=== PATIENT | female | born 1955 | race Caucasian/White ===

== ENCOUNTER 2016-10-02 14:44 | Inpatient (IN) | payer OTHER, MEDICARE ==
[~2016-10-02] VITALS: Ht 157.5 cm; Wt 80.8 kg
[~2016-10-02 14:44] MED LIST: AMIO200T PO; ASPI81CH PO; CHOL50006 PO; CYMB60CA PO; EPIN1INJ21 IV PUSH; EPIN1INJ21 SQ; GABA300C5 PO; ISOS20TA PO; LIPI40TA PO; LOSA25TA PO; METO25TA3 PO; MONT10TA4 PO; NOVO7030P2 SQ; NOVORP2 SQ; OXYC-259 PO; OXYC1TAB36 PO; SOLU250I IV PUSH; TIZA4CAP3 PO; VANC10IN IV
[2016-10-02 14:46] VITALS: BP 78/44; PULSE 71; RESP 18; TEMP 97.9; O2SAT 96
--- NOTE | 2016-10-02 16:32 | PD ---
HPI Chief Complaint: Abnormal Results Time Seen by Provider: 16:32 Travel History International Travel<30 days: No Contact w/Intl Traveler<30days: No Traveled to known affect area: No History of Present Illness HPI 60-year-old female with history of lupus, diabetes, hypertension, CAD, previous CABG, asthma, presents to the emergency department with an admit order from Dr. Ruiz her plant guard. Patient states this "all started last December." She states she had a toe amputated which took a while to heal and then she had another toe amputated months following that. She states since that amputation she has developed additional wound and worsening. She has felt chills with unknown fever. No chest tightness. No difficulty breathing. She went to Dr. Ruiz today after redness had encompassed the right distal lower extremity. He advised that she come to the emergency department. He wants her admitted to medicine with IV antibiotics and possible amputation of the foot in 1-2 days. The order is with her paperwork. PFSH Past Medical History Asthma: Yes Autoimmune Disease: Yes (LUPUS) Depression: Yes Cardiovascular Problems: Yes Chemotherapy: Yes Cerebrovascular Accident: No Diabetes: Yes Endocrine: Yes Gastrointestinal Disorders: Yes (HX FISTULA - COLOSTOMY LEFT UPPER QUAD; ESOPHAGEAL SPASMS) Genitourinary: No Headaches: No Hepatitis: No Hiatal Hernia: No Hypertension: No Immune Disorder: Yes (LUPUS ) Implanted Vascular Access Dvce: Yes Neurologic: Yes (DIABETIC NERVE PAIN HANDS & FEET) Psychiatric: No Reproductive: No Respiratory: Yes Immunizations Current: Yes Migraines: No Seizures: No Thyroid Disease: No ?: Not Menopausal: Yes Past Surgical History Abdominal Surgery: Yes (JAMSHID,COLON SX, COLOSTOMY AND REVERSAL; COLOSTOMY 04/15) AICD: No Body Medical Devices: CARDIAC STENTS, BREAST SALINE IMPLANTS Cardiac Surgery: Yes (CARDIAC STENTS X2, CABG 5 vessels ) Endocrine Surgery: No Genitourinary Surgery: Yes (KIDNEY STONES 1984, ESWL) Gynecologic Surgery: Yes (HYSTERECTOMY) Hysterectomy: Yes Joint Replacement: No Neurologic Surgery: No Oral Surgery: Yes (TONSILLECTOMY) Pacemaker: No Thoracic Surgery: No Other Surgery: Yes Social History Alcohol Use: No Tobacco Use: No Substance Use: No Allergies-Medications (Allergen,Severity, Reaction): Coded Allergies: Bactrim (Verified Allergy, Severe, Shortness of Breath, 06/06/16) Iodine (Verified Allergy, Severe, THROAT SWELLS, 06/06/16) pt states does not have a allergy to Iodine 01/11/16 JF Penicillin (Verified Allergy, Severe, STOPPED BREATHING, 06/06/16) Shellfish (Verified Allergy, Severe, THROAT SWELLS, 06/06/16) *MDRO Multi-Drug Resistant Organism (Verified Adverse Reaction, Unknown, 06/06/16) 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 Solu-Cortef Inj (Hydrocortisone Sodium Succinate) 250 Mg Inj 250 Mg IV PUSH ONCE PRN Give over 30-60 seconds. Vancomycin Inj (Vancomycin HCl) 10 Gm Inj 1,400 Mg IV DAILY 42 Days Oxycontin (Oxycodone HCl) 10 Mg Tab 10 Mg PO Q12HR Metoprolol Tartrate 25 Mg Tab 25 Mg PO BID 30 Days Reported Lipitor (Atorvastatin Calcium) 40 Mg Tab 40 Mg PO HS Vitamin D (Cholecalciferol) 5,000 Unit Tab 5,000 Units PO DAILY Losartan (Losartan Potassium) 25 Mg Tab 25 Mg PO DAILY Montelukast (Montelukast Sodium) 10 Mg Tab 10 Mg PO HS Oxycodone-Acetaminophen 10-325 mg Tab 1 Tab PO QID PRN Novolin 70-30 Inj (Insulin Human Isoph/Insulin Regular) 1,000 Unit/10 Ml Vial 30 Units SQ ACHS Novolin R Inj (Insulin Human Regular) 1,000 Unit/10 Ml Vial 0 SQ DIRECTED Sliding Scale As Directed. Isosorbide Mononitrate 20 Mg Tab 30 Mg PO DAILY Take 2 doses 7 hours apart. Tizanidine (Tizanidine HCl) 4 Mg Cap 4 Mg PO TID Gabapentin 300 Mg Cap 300 Mg PO Q6HR Aspirin 81 Mg Chew 81 Mg CHEW DAILY Amiodarone (Amiodarone HCl) 200 Mg Tab 200 Mg PO DAILY Cymbalta DR (Duloxetine HCl) 60 Mg Capdr 60 Mg PO DAILY Review of Systems Except as stated in HPI: all other systems reviewed are Neg Physical Exam Narrative GENERAL: Chronically ill-appearing female patient, in no acute distress SKIN: Warm and dry. Dressing on the right distal lower extremity with a postop shoe. Erythema extends proximal to the knee Of the right lower extremity. HEAD: Atraumatic. Normocephalic. EYES: Pupils equal and round. No scleral icterus. No injection or drainage. ENT: No nasal bleeding or discharge. Mucous membranes pink and moist. NECK: Trachea midline. No JVD. CARDIOVASCULAR: Regular rate and rhythm. No murmur appreciated. RESPIRATORY: No accessory muscle use. Diminished likely due to girth and poor inspiratory effort. To auscultation. Breath sounds equal bilaterally. GASTROINTESTINAL: Abdomen soft, non-tender, nondistended. Hepatic and splenic margins not palpable. MUSCULOSKELETAL: No obvious deformities. No clubbing. No cyanosis. Edema and erythema of the right distal lower extremity with a dressing in place on the foot and postop shoe. NEUROLOGICAL: Awake and alert. No obvious cranial nerve deficits. Motor grossly within normal limits. Normal speech. Data Data Last Documented VS Vital Signs Date Time Temp Pulse Resp B/P Pulse Ox O2 Delivery O2 Flow Rate FiO2 10/02/16 18:07 66 18 153/67 99 Room Air 10/02/16 14:46 97.9 Orders Electrocardiogram (10/02/16 16:25) Complete Blood Count With Diff (10/02/16 16:25) Comprehensive Metabolic Panel (10/02/16 16:25) Prothrombin Time / Inr (Pt) (10/02/16 16:25) Act Partial Throm Time (Ptt) (10/02/16 16:25) Lactic Acid Sepsis Protocol (10/02/16 16:25) Ckmb (Isoenzyme) Profile (10/02/16 16:25) Troponin I (10/02/16 16:25) Urinalysis - C+S If Indicated (10/02/16 16:25) Blood Culture (10/02/16 16:25) Chest, Single Ap (10/02/16 16:25) CKMB (10/02/16 16:45) CKMB% (10/02/16 16:45) Mri Foot W/O Contrast (10/02/16 ) Labs Laboratory Tests Test 10/02/16 10/02/16 16:45 16:50 White Blood Count 13.1 TH/MM3 Red Blood Count 3.71 MIL/MM3 Hemoglobin 10.2 GM/DL Hematocrit 31.5 % Mean Corpuscular Volume 84.9 FL Mean Corpuscular Hemoglobin 27.4 PG Mean Corpuscular Hemoglobin 32.2 % Concent Red Cell Distribution Width 16.9 % Platelet Count 274 TH/MM3 Mean Platelet Volume 6.9 FL Neutrophils (%) (Auto) 78.5 % Lymphocytes (%) (Auto) 9.5 % Monocytes (%) (Auto) 10.7 % Eosinophils (%) (Auto) 0.7 % Basophils (%) (Auto) 0.6 % Neutrophils # (Auto) 10.3 TH/MM3 Lymphocytes # (Auto) 1.2 TH/MM3 Monocytes # (Auto) 1.4 TH/MM3 Eosinophils # (Auto) 0.1 TH/MM3 Basophils # (Auto) 0.1 TH/MM3 CBC Comment DIFF FINAL Differential Comment Prothrombin Time 10.8 SEC Prothromb Time International 1.0 RATIO Ratio Activated Partial 27.1 SEC Thromboplast Time Sodium Level 130 MEQ/L Potassium Level 4.3 MEQ/L Chloride Level 98 MEQ/L Carbon Dioxide Level 21.7 MEQ/L Anion Gap 10 MEQ/L Blood Urea Nitrogen 29 MG/DL Creatinine 1.92 MG/DL Estimat Glomerular Filtration 27 ML/MIN Rate Random Glucose 130 MG/DL Calcium Level 8.7 MG/DL Total Bilirubin 0.5 MG/DL Aspartate Amino Transf 43 U/L (AST/SGOT) Alanine Aminotransferase 27 U/L (ALT/SGPT) Alkaline Phosphatase 99 U/L Total Creatine Kinase 291 U/L Creatine Kinase MB 4.7 NG/ML Creatine Kinase MB % 1.6 % Troponin I LESS THAN 0.02 NG/ML Total Protein 8.5 GM/DL Albumin 2.6 GM/DL Lactic Acid Level 1.3 mmol/L MDM Medical Decision Making Medical Screen Exam Complete: Yes Emergency Medical Condition: Yes Medical Record Reviewed: Yes Differential Diagnosis Cellulitis versus osteomyelitis versus gangrenous wound versus PVD versus PAD versus sepsis Narrative Course 60 year-old female presents to the emergency department at the instruction of her plant guard Dr. Ruiz. The patient has with her and order that his hand written out by Dr. Ruiz for admission to medicine and a consult to ID and plant guard mentioned on the order sheet. There are other orders as well. Workup was initiated in triage. Once a medical bed becomes available, patient will be transferred and care assumed by the provider. I spoke with who has assumed care of the patient. She is aware of the order that accompanies the patient chart. Condition: Stable MendozaBouchra pedersen LULU Oct 02, 2016 16:32
[2016-10-02 17:08] LABS: AUTOMATED NEUTROPHIL # 10.3 TH/MM3 (1.8-7.7); BASOPHIL # 0.1 TH/MM3 (0-0.2); BASOPHIL % 0.6 % (0.0-2.0); EOSINOPHIL # 0.1 TH/MM3 (0-0.4); EOSINOPHIL % 0.7 % (0.0-4.0); HEMATOCRIT 31.5 % (35.0-46.0); HEMO FLAGS DIFF FINAL; LYMPH % 9.5 % (9.0-44.0); LYMPHOCYTE # 1.2 TH/MM3 (1.0-4.8); MEAN CELL VOLUME 84.9 FL (80.0-100.0); MEAN CORPUSCULAR HEMOGLOBIN 27.4 PG (27.0-34.0); MEAN CORPUSCULAR HGB CONC 32.2 % (32.0-36.0); MONO % 10.7 % (0.0-8.0); NEUT % 78.5 % (16.0-70.0); PLATELET COUNT 274 TH/MM3 (150-450); RED BLOOD COUNT 3.71 MIL/MM3 (4.00-5.30); RED CELL DISTRIBUTION WIDTH 16.9 % (11.6-17.2); WHITE BLOOD COUNT 13.1 TH/MM3 (4.0-11.0)
--- NOTE | 2016-10-02 17:22 | RADRPT ---
EXAM DATE/TIME: 10/02/2016 16:49 [facility] COMPARISON: CHEST SINGLE AP, June 11, 2016, 12:48. INDICATIONS : Shortness of breath. MEDICAL HISTORY : Chronic obstructive pulmonary disease. Coronary artery disease. Asthma. SURGICAL HISTORY : CABG. Coronary artery stent. Mastectomy, bilateral. ENCOUNTER: Initial ACUITY: 1 day PAIN SCORE: 0/10 LOCATION: Bilateral chest FINDINGS: Sternal wires from previous bypass are noted. The heart is enlarged. Pulmonary vascularity is normal. Surgical clips are seen in the left axilla. Portions of the bony skeleton visualized are unremarka ble. CONCLUSION: Compensated cardiomegaly, negative for an acute infiltrate or failure. Sean Lawler MD FACR on October 02, 2016 at 17:16 Board Certified Radiologist. This report was verified electronically.
[2016-10-02 17:23] LABS: APTT (PATIENT) 27.1 SEC (24.3-30.1); PROTHROMBIN TIME - PATIENT 10.8 SEC (9.8-11.6)
[2016-10-02 17:25] LABS: ANION GAP 10 MEQ/L (5-15); AST (GOT) 43 U/L (15-37); BICARBONATE 21.7 MEQ/L (21.0-32.0); BLOOD UREA NITROGEN 29 MG/DL (7-18); CHLORIDE 98 MEQ/L (98-107); GLOMERULAR FILTRATION RATE 27 ML/MIN (>89); POTASSIUM 4.3 MEQ/L (3.5-5.1); SODIUM (NA) 130 MEQ/L (136-145)
[2016-10-02 17:29] LABS: ALKALINE PHOSPHATASE 99 U/L (45-117); ALT (GPT) 27 U/L (10-53); CREATINE KINASE 291 U/L (26-192); TOTAL BILIRUBIN ADULT 0.5 MG/DL (0.2-1.0)
[2016-10-02 17:41] LABS: CKMB 4.7 NG/ML (0.5-3.6)
[2016-10-02 18:07] VITALS: BP 153/67; PULSE 66; RESP 18; O2SAT 99
--- NOTE | 2016-10-02 18:42 | PD ---
Physical Exam Date Seen by Provider: Oct 02, 2016 Narrative Patient was sent here from Dr. Ruiz, who is a break out man, for admission to the hospitalist service with consults to podiatry and ID because of cellulitis of the right knee with associated osteomyelitis. Patient reports onset of symptoms a week ago. She has been febrile. She just sought medical care today. Data Data Last Documented VS Vital Signs Date Time Temp Pulse Resp B/P Pulse Ox O2 Delivery O2 Flow Rate FiO2 10/02/16 18:07 66 18 153/67 99 Room Air 10/02/16 14:46 97.9 Orders Electrocardiogram (10/02/16 16:25) Complete Blood Count With Diff (10/02/16 16:25) Comprehensive Metabolic Panel (10/02/16 16:25) Prothrombin Time / Inr (Pt) (10/02/16 16:25) Act Partial Throm Time (Ptt) (10/02/16 16:25) Lactic Acid Sepsis Protocol (10/02/16 16:25) Ckmb (Isoenzyme) Profile (10/02/16 16:25) Troponin I (10/02/16 16:25) Urinalysis - C+S If Indicated (10/02/16 16:25) Blood Culture (10/02/16 16:25) Chest, Single Ap (10/02/16 16:25) CKMB (10/02/16 16:45) CKMB% (10/02/16 16:45) Mri Foot W/O Contrast (10/02/16 ) Ondansetron Inj (Zofran Inj) (10/02/16 18:45) Morphine Inj (Morphine Inj) (10/02/16 18:45) Wound Culture And Gram Stain (10/02/16 19:34) Diet 1999 [place] Cons Carb (10/03/16 Breakfast) Npo After Midnight W/ Po Meds (10/03/16 Breakfast) ^ Consent (10/02/16 19:34) ^ Other Nursing Orders (10/02/16 19:34) ^ Other Nursing Orders (10/02/16 19:34) Mupirocin 2% Oint (Bactroban 2% Oint) (10/02/16 19:45) Vancomycin Inj (Vancomycin Inj) (10/02/16 19:45) Acetamin-Hydrocod 325-7.5 Mg ([place] 7.5 (10/02/16 19:45) Morphine Inj (Morphine Inj) (10/02/16 19:45) Vancomycin Consult Pharmacy (Vancomycin (10/02/16 19:45) Consult Podiatry (10/02/16 ) Admit Order (Ed Use Only) (10/02/16 19:43) Admit To Inpatient (10/02/16 ) Vital Signs (Adult) Q4H (10/02/16 19:40) Activity Oob With Assistance (10/02/16 19:40) Cold Strip Roller / Telemetry .CONTINUOUS (10/02/16 19:40) Sodium Chloride 0.9% Flush (Ns Flush) (10/02/16 19:45) Sodium Chloride 0.9% Flush (Ns Flush) (10/02/16 21:00) Ondansetron Inj (Zofran Inj) (10/02/16 19:45) Basic Metabolic Panel (Bmp) (10/03/16 06:00) Complete Blood Count With Diff (10/03/16 06:00) Naloxone Inj (Narcan Inj) (10/02/16 19:45) Inpatient Certification (10/02/16 ) Labs Laboratory Tests Test 10/02/16 10/02/16 16:45 16:50 White Blood Count 13.1 TH/MM3 Red Blood Count 3.71 MIL/MM3 Hemoglobin 10.2 GM/DL Hematocrit 31.5 % Mean Corpuscular Volume 84.9 FL Mean Corpuscular Hemoglobin 27.4 PG Mean Corpuscular Hemoglobin 32.2 % Concent Red Cell Distribution Width 16.9 % Platelet Count 274 TH/MM3 Mean Platelet Volume 6.9 FL Neutrophils (%) (Auto) 78.5 % Lymphocytes (%) (Auto) 9.5 % Monocytes (%) (Auto) 10.7 % Eosinophils (%) (Auto) 0.7 % Basophils (%) (Auto) 0.6 % Neutrophils # (Auto) 10.3 TH/MM3 Lymphocytes # (Auto) 1.2 TH/MM3 Monocytes # (Auto) 1.4 TH/MM3 Eosinophils # (Auto) 0.1 TH/MM3 Basophils # (Auto) 0.1 TH/MM3 CBC Comment DIFF FINAL Differential Comment Prothrombin Time 10.8 SEC Prothromb Time International 1.0 RATIO Ratio Activated Partial 27.1 SEC Thromboplast Time Sodium Level 130 MEQ/L Potassium Level 4.3 MEQ/L Chloride Level 98 MEQ/L Carbon Dioxide Level 21.7 MEQ/L Anion Gap 10 MEQ/L Blood Urea Nitrogen 29 MG/DL Creatinine 1.92 MG/DL Estimat Glomerular Filtration 27 ML/MIN Rate Random Glucose 130 MG/DL Calcium Level 8.7 MG/DL Total Bilirubin 0.5 MG/DL Aspartate Amino Transf 43 U/L (AST/SGOT) Alanine Aminotransferase 27 U/L (ALT/SGPT) Alkaline Phosphatase 99 U/L Total Creatine Kinase 291 U/L Creatine Kinase MB 4.7 NG/ML Creatine Kinase MB % 1.6 % Troponin I LESS THAN 0.02 NG/ML Total Protein 8.5 GM/DL Albumin 2.6 GM/DL Lactic Acid Level 1.3 mmol/L MDM Supervised Visit with SUZY: Yes Differential Diagnosis My differential diagnosis includes but is not limited to localized wound infection, cellulitis, abscess, osteomyelitis Narrative Course Patient presents to us from a break out man office for admission for evaluation and treatment of right lower extremity cellulitis and probable osteomyelitis. Her right lower extremity is red and warm from the knee down. CBC & BMP Diagram 10/02/16 16:45 Lactic acid is 1.3. The hospitalist will be consulted for admission. UpToDate recommends withholding antibiotics in stable patient's until cultures can be obtained surgically. Therefore, I have not ordered empiric antibiotics. Physician Communication Physician Communication Dr. Osullivan will admit. Diagnosis Primary Impression: Diabetic foot infection Admitting Information Admitting Physician Requests: Admit Condition: Stable Taya Manzo MD Oct 02, 2016 18:42
[2016-10-02] MEDS ORDERED: MORPHINE SULFATE 8 MG/ML INJ IV PUSH ONE (18:45)
[2016-10-02] MEDS ORDERED: ONDANSETRON HCL 4 MG/2 ML VIAL IV PUSH ONE (18:45)
[2016-10-02] MEDS ORDERED: DULO1CAP2 PO (18:47)
[2016-10-02] MEDS ORDERED: ISOS30TA3 PO (18:50)
[2016-10-02 19:00] VITALS: BP 138/61; PULSE 73; RESP 18; O2SAT 99
[2016-10-02] MEDS ORDERED: Vancomycin Consult Pharmacy 1 EA OTHER SCH (19:45)
[2016-10-02] MEDS ORDERED: NALOXONE HCL 0.4 MG/ML AMP IV PRN (19:45)
[2016-10-02] MEDS ORDERED: MUPIROCIN 2% OINT 22 GM TUBE TOPICAL ONE (19:45)
[2016-10-02] MEDS ORDERED: ONDANSETRON HCL 4 MG/2 ML VIAL IVP PRN (19:45)
[2016-10-02] MEDS ORDERED: VANCOMYCIN INJ 1,000 MG in SODIUM CHLOR 0.9% 250 ML INJ 250 ML IV ONE (20:00)
[2016-10-02] MEDS: MORPHINE SULFATE 4 MG/ML INJ IV PUSH PRN ×2 (20:19→22:54)
[2016-10-02] MEDS: SODIUM CHLORIDE 0.9% FLUSH 5 ML FLUSH FLUSH SCH (20:51)
[2016-10-02 21:29] LABS: BLOOD, URINE NEG (NEG); GLUCOSE,URINE NEG (NEG); HYALINE CAST, URINE 5 /lpf (RARE); KETONE, URINE NEG (NEG); NITRITE,URINE NEG (NEG); SQUAMOUS EPITHELIAL CELL URINE 9 /hpf (0-5); TRANSITIONAL EPI CELLS, URINE <1 /hpf; URINE COLOR YELLOW (YELLW/STRAW); WHITE BLOOD CELL CAST, URINE 4 /lpf
[2016-10-02 21:30] LABS: COMMENT (UR) CATH-CULTURE IND; CULTURE IF INDICATED CATH CULTURE IND
--- NOTE | 2016-10-02 21:35 | RADRPT ---
EXAM DATE/TIME: 10/02/2016 20:29 [facility] COMPARISON: No previous studies available for comparison. INDICATIONS : Osteomyelitis. MEDICAL HISTORY : Diabetes mellitus type 2. Lupus. SURGICAL HISTORY : CABG Right foot surgery. ENCOUNTER: Subsequent ACUITY: 3 months PAIN SCORE: 0/10 LOCATION: Right foot. TECHNIQUE: Multiplanar, multisequence MRI examination was performed without contrast. FINDINGS: BONE/CARTILAGE: Severe midfoot and forefoot deformity is noted. The first metatarsal demonstrates abnormal T2 hyperin tensity in its midshaft with poor cortical delineation. Fracture appears to be present. The second me tatarsal and toe have been amputated. The third metatarsal demonstrates abnormal signal intensity thr oughout its shaft with mild bone marrow edema. The distal and proximal aspects of the third metatarsa l are discontinuous. The fourth metatarsal demonstrates a fracture through the proximal shaft but oth erwise fails to contain any significant bone marrow edema. The fifth metatarsal and toe have been amp utated. Bone marrow signal intensity is well preserved and the tarsal bones and calcaneus. TENDONS: All of the visualized tendons are intact. MISCELLANEOUS: Fibrotic and inflammatory soft tissue changes are seen throughout the midfoot and forefoot. There are 3 discrete fluid collections identified. A 2 x 1.7 cm collection is identified along the plantar janet face of the third metatarsophalangeal joint. A 1.4 cm fluid collection is identified along the dorsal margin of the proximal fourth metatarsal. A sinus tract is identified extending from the plantar janet face of the foot into the midfoot this is located between the third and fourth distal metatarsals. CONCLUSION: 3 discrete fluid collections are identified in the mid and forefoot which may or pres ent abscess collections. Abnormal signal intensity with bone marrow edema and destructive cortical changes are identified in t he first and third metatarsal which may represent osteomyelitis. Changes in the third metatarsal asso ciated with a fistulous tract extending to the plantar surface. The second and fifth metatarsals and toes have been amputated. No evidence of acute or chronic inflammatory changes involving the hindfoot. Roldan Graves MD on October 02, 2016 at 21:16 Board Certified Radiologist. This report was verified electronically.
[2016-10-02 23:00] VITALS: BP 129/65; PULSE 70; RESP 18; O2SAT 98
--- NOTE | 2016-10-02 23:07 | HHI.HP ---
[facility] Alonso Robins MD Admission Diagnosis cellulitis Diagnoses: Chief Complaint: right foot infection Travel History International Travel<30 Days: No Contact w/Intl Traveler <30 Da: No Traveled to Known Affected Are: No History of Present Illness 60 y/o female with a history of lupus, htn, CAD, asthma, dylipidemia presented to the ED from Dr. Ruiz's office for evaluation and possible amputation of right foot. Patient states she has been dealing with the foot infection since December of 2015, and when she has been treated multiple times with antibiotics. Over the last 2 weeks she has been having increased pain and swelling of the planter side of right foot. She went to see Dr. Ruiz today and she stated he took xrays and suggested she come to the hospital for an MRI and possible amputation. She complains of increase throbbing pain to right 3rd digit that radiates to her calf, this has made walking very difficult for her. She denies any fever, chill, chest pain or shortness of breath. Dr. Spaulding has seen the patient and surgery is planned for 10am. She also complains of an ulcer to her planter surface of left great toe, she states she undergoes home health care twice a week for dressing changes. Review of Systems Constitutional: DENIES: Fever, Chills Respiratory: DENIES: Cough, Sputum production, Shortness of breath Cardiovascular: COMPLAINS OF: Lower Extremity Edema, DENIES: Chest pain Gastrointestinal: DENIES: Diarrhea, Nausea, Vomiting Musculoskeletal: COMPLAINS OF: Joint pain, Joint Swelling, DENIES: Back pain, Neck pain Integumentary: DENIES: Rash Hematologic/lymphatic: DENIES: Lymphadenopathy Immunologic/allergic: DENIES: Urticaria Past Family Social History Past Medical History Lupus HTN COPD, oxygen as needed at home DM CAD CHF Afib Past Surgical History CABG 2013 Right illiac artery bypass 2015 Right 2nd and 5th toe amputation colostomy Mastectomy 1980 Breast augmentation Hysterectomy Tonsillectomy Reported Medications Reported Meds & Active Scripts Active Metoprolol Tartrate 25 Mg Tab 25 Mg PO BID 30 Days Reported Isosorbide Mononitrate ER (Isosorbide Mononitrate) 30 Mg Shonda 30 Mg PO DAILY Duloxetine DR (Duloxetine HCl) 30 Mg Capdr 30 Mg PO DAILY Lipitor (Atorvastatin Calcium) 40 Mg Tab 40 Mg PO HS Vitamin D (Cholecalciferol) 5,000 Unit Tab 5,000 Units PO DAILY Losartan (Losartan Potassium) 25 Mg Tab 25 Mg PO DAILY Montelukast (Montelukast Sodium) 10 Mg Tab 10 Mg PO HS Oxycodone-Acetaminophen 10-325 mg Tab 1 Tab PO QID PRN Novolin 70-30 Inj (Insulin Human Isoph/Insulin Regular) 1,000 Unit/10 Ml Vial 30 Units SQ BID Novolin R Inj (Insulin Human Regular) 1,000 Unit/10 Ml Vial Unknown Dose SQ ACHS Sliding Scale As Directed. Tizanidine (Tizanidine HCl) 4 Mg Cap 4 Mg PO TID Gabapentin 300 Mg Cap 300 Mg PO Q6HR Aspirin 81 Mg Chew 81 Mg CHEW DAILY Amiodarone (Amiodarone HCl) 200 Mg Tab 200 Mg PO DAILY Allergies: Coded Allergies: Bactrim (Verified Allergy, Severe, Shortness of Breath, 06/06/16) Iodine (Verified Allergy, Severe, THROAT SWELLS, 06/06/16) pt states does not have a allergy to Iodine 01/11/16 JF Penicillin (Verified Allergy, Severe, STOPPED BREATHING, 06/06/16) Shellfish (Verified Allergy, Severe, THROAT SWELLS, 06/06/16) *MDRO Multi-Drug Resistant Organism (Verified Adverse Reaction, Unknown, 06/06/16) 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 Active Ordered Medications Current Medications Medications (Trade) Dose Ordered Sig/Seng Route Start Time Stop Time Status Last Admin ([place] 7.5-325 Mg) 2 tab Q6H PRN PO 10/02/16 19:45 Morphine Sulfate 4 mg 4 mg Q6HR PRN IV PUSH 10/02/16 19:45 10/02/16 20:19 (Vancomycin Consult Pharmacy) 0 ml @ 0 mls/hr UNSCH OTHER 10/02/16 19:45 (NS Flush) 2 ml UNSCH PRN FLUSH 10/02/16 19:45 (NS Flush) 2 ml BID FLUSH 10/02/16 21:00 (Zofran Inj) 4 mg Q6H PRN IVP 10/02/16 19:45 (Narcan Inj) 0.4 mg UNSCH PRN IV 10/02/16 19:45 (Morphine Inj) 2 mg Q3H PRN IV PUSH 10/02/16 19:45 10/02/16 22:54 Family History DAD: CAD, [place] Mom: breast cancer, bone cancer Grandfather: DM Social History Tobacco use: Quit 9 months ago Alcohol use: Denies Illicit drug use: Denies Physical Exam Vital Signs Vital Signs Date Time Temp Pulse Resp B/P Pulse Ox O2 Delivery O2 Flow Rate FiO2 10/02/16 18:07 66 18 153/67 99 Room Air 10/02/16 14:46 97.9 71 18 78/44 96 Room Air Physical Exam GENERAL: This is a well-nourished, well-developed patient, in no apparent distress. SKIN: Ulceration to outer plantar surface of right foot. Cellulitis of right leg. Ulcerated soft tissue of left great toe. HEAD: Atraumatic. Normocephalic. No temporal or scalp tenderness. EYES: Pupils equal round and reactive. ENT: Nose without bleeding, purulent drainage or septal hematoma. Airway patent. NECK: Trachea midline. No JVD or lymphadenopathy. Supple, nontender, no meningeal signs. CARDIOVASCULAR: Regular rate and rhythm without murmurs, gallops, or rubs. RESPIRATORY: Clear to auscultation. Breath sounds equal bilaterally. No wheezes , rales, or rhonchi. GASTROINTESTINAL: Abdomen soft, non-tender, distended. Colostomy in place. No guarding. MUSCULOSKELETAL: Right lower extremity edematous with erythema. No calf tenderness. NEUROLOGICAL: Awake and alert. Motor and sensory grossly within normal limits. Normal speech. Laboratory Laboratory Tests Test 10/02/16 10/02/16 10/02/16 16:45 16:50 20:00 White Blood Count 13.1 Red Blood Count 3.71 Hemoglobin 10.2 Hematocrit 31.5 Mean Corpuscular Volume 84.9 Mean Corpuscular Hemoglobin 27.4 Mean Corpuscular Hemoglobin 32.2 Concent Red Cell Distribution Width 16.9 Platelet Count 274 Mean Platelet Volume 6.9 Neutrophils (%) (Auto) 78.5 Lymphocytes (%) (Auto) 9.5 Monocytes (%) (Auto) 10.7 Eosinophils (%) (Auto) 0.7 Basophils (%) (Auto) 0.6 Neutrophils # (Auto) 10.3 Lymphocytes # (Auto) 1.2 Monocytes # (Auto) 1.4 Eosinophils # (Auto) 0.1 Basophils # (Auto) 0.1 CBC Comment DIFF FINAL Differential Comment Prothrombin Time 10.8 Prothromb Time International 1.0 Ratio Activated Partial 27.1 Thromboplast Time Sodium Level 130 Potassium Level 4.3 Chloride Level 98 Carbon Dioxide Level 21.7 Anion Gap 10 Blood Urea Nitrogen 29 Creatinine 1.92 Estimat Glomerular Filtration 27 Rate Random Glucose 130 Calcium Level 8.7 Total Bilirubin 0.5 Aspartate Amino Transf 43 (AST/SGOT) Alanine Aminotransferase 27 (ALT/SGPT) Alkaline Phosphatase 99 Total Creatine Kinase 291 Creatine Kinase MB 4.7 Creatine Kinase MB % 1.6 Troponin I LESS THAN 0.02 Total Protein 8.5 Albumin 2.6 Lactic Acid Level 1.3 Urine Color YELLOW Urine Turbidity HAZY Urine pH 5.0 Urine Specific [place] 1.014 Urine Protein 30 Urine Glucose (UA) NEG Urine Ketones NEG Urine Occult Blood NEG Urine Nitrite NEG Urine Bilirubin NEG Urine Urobilinogen LESS THAN 2.0 Urine Leukocyte Esterase MOD Urine RBC 2 Urine WBC 8 Urine Squamous Epithelial 9 Cells Urine Transitional Epithelial <1 Cells Urine Hyaline Casts 5 Urine White Blood Cell Casts 4 Urine Yeast (Budding) RARE Microscopic Urinalysis Comment CATH-CULTURE IND Date/Time Procedure Status Source Growth 10/02/16 20:00 Urine Culture Received Urine Clean Catch Pending 10/02/16 16:50 Aerobic Blood Culture Received Blood Peripheral Pending 10/02/16 16:50 Anaerobic Blood Culture Received Blood Peripheral Pending 10/02/16 15:45 Gram Stain Received Wound Foot Pending 10/02/16 15:45 Wound Culture Received Wound Foot Pending Result Diagram: 10/02/16 1645 10/02/16 1645 Imaging Last Impressions Chest X-Ray 10/02/16 1625 Signed Impressions: Service Date/Time: Sunday, October 02, 2016 16:49 - CONCLUSION: Compensated cardiomegaly, negative for an acute infiltrate or failure. Sean Lawler MD FACR Foot MRI 10/02/16 0000 Signed Impressions: Service Date/Time: Sunday, October 02, 2016 20:29 - CONCLUSION: 3 discrete fluid collections are identified in the mid and forefoot which may or present abscess collections. Abnormal signal intensity with bone marrow edema and destructive cortical changes are identified in the first and third metatarsal which may represent osteomyelitis. Changes in the third metatarsal associated with a fistulous tract extending to the plantar surface. The second and fifth metatarsals and toes have been amputated. No evidence of acute or chronic inflammatory changes involving the hindfoot. Roldan Graves MD Assessment and Plan Problem List: (1) Osteomyelitis of right foot ICD Code: M86.9 Status: Acute (2) Foot ulcer, left ICD Code: L97.529 Status: Acute (3) HTN (hypertension) ICD Code: I10 Status: Chronic (4) DM (diabetes mellitus) ICD Code: E11.9 Status: Chronic (5) A-fib ICD Code: I48.91 Status: Chronic Assessment and Plan 60-year-old female with a history of hypertension, diabetes, CAD, COPD and lupus presented with: Osteomyelitis of the right foot Images: Right foot MRI shows discrete fluid collections are identified in the mid and forefoot which may or present abscess collections. Abnormal signal intensity with bone marrow edema and destructive cortical changes are identified in the first and third metatarsal which may represent osteomyelitis. Changes in the third metatarsal associated with a fistulous tract extending to the plantar surface. -Dr. Spaulding consulted surgery planned a.m. -Vancomycin IV per Dr. Spaulding, ID consulted -Nothing by mouth after midnight -Pain management with IV morphine -Venous Doppler ultrasound ordered to rule out DVT. Left foot ulcer, chronic -Dressing changes per podiatry Diabetes, chronic -Accu-Cheks AC/HS Hypertension, chronic -Monitor vitals -Restart home medications losartan, metoprolol A. fib, chronic -Continue home medications amiodarone -Monitor telemetry DVT prophylaxis: SCDs, chemical prophylaxis will be determined after surgery Written by Jackie LAWSON, acting as scribe for Dr. Osullivan on 10/02/16 at 2304. The documentation accurately reflects the work performed [id number] and decisions made by me and the physician Dr Osullivan on 10/02/16. The documentation accurately reflects the work performed [id number] by me on at 2304 Discussed Condition With Patient and RN Physician Certification 2 Midnight Certification Type: Admission for Inpatient Services Order for Inpatient Services The services are ordered in accordance with Medicare regulations or non- Medicare payer requirements, as applicable. In the case of services not specified as inpatient-only, they are appropriately provided as inpatient services in accordance with the 2-midnight benchmark. Estimated LOS (days): 3 days is the estimated time the patient will need to remain in the hospital, assuming treatment plan goals are met and no additional complications. Post-Hospital Plan: Not yet determined Jackie Lim Oct 02, 2016 23:07 Venita Osullivan MD Oct 03, 2016 08:02
[2016-10-03] VITALS (7 sets, daily range): BP systolic 118–151; BP diastolic 56–70; PULSE 56–95; RESP 17–21; TEMP 97.9–99.3; O2SAT 95–100
[2016-10-03] MEDS: GABAPENTIN 300 MG CAP PO SCH ×2 (00:20→05:45)
--- NOTE | 2016-10-03 01:34 | RADRPT ---
EXAM DATE/TIME: 10/02/2016 23:26 [facility] COMPARISON: No previous studies available for comparison. INDICATIONS : Right leg swelling and pain. MEDICAL HISTORY : Renal calculi. Lupus. Diabetic nerve pain. Diabetes. Asthma. Esophageal spasms. Depression. Anxie ty. MRSA. SURGICAL HISTORY : Tonsillectomy. CABG Coronary artery stent. Colostomy and reversal. Cholecystectomy. Hysterectomy. Fi stula. Bilateral mastectomy. Chemotherapy. ENCOUNTER: Initial ACUITY: 2 weeks PAIN SCORE: 9/10 LOCATION: Right leg. TECHNIQUE: Venous ultrasound of the leg was performed from the inguinal ligament to the proximal calf. Real-fatemeh e, color Doppler and spectral tracing, compression and augmentation techniques were used. FINDINGS: There is normal compressibility of the deep venous system from the inguinal region to the proximal ca lf. No echogenic clot is seen in the lumen of the common femoral, femoral, popliteal, and posterior tibial veins. There is a normal response of the venous system to proximal and distal augmentation an d respiration. CONCLUSION: 1. Negative for deep venous thrombosis. 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 Right inguinal lymph nodes mildly enlarged. Abdullahi Yu MD on October 03, 2016 at 1:31 Board Certified Radiologist. This report was verified electronically.
[2016-10-03] MEDS: MORPHINE SULFATE 4 MG/ML INJ IV PUSH PRN ×4 (01:50→20:05)
--- NOTE | 2016-10-03 05:34 | MB ---
cc: [facility] DATE OF CONSULTATION 10/02/2016 CHIEF COMPLAINT Right foot ulceration and cellulitis. HISTORY OF PRESENT ILLNESS Ms. Finnegan is a 60-year-old patient known to my partner, Dr. William Ruiz. She states that approximately a week ago she noticed erythema, swelling and pain to the right lower extremity. She has no idea how long she had the ulceration. Prior to that she states she started developing fevers at that time as well, as high as 102, but was hoping to avoid the hospital so did not seek treatment until today when she saw Dr. Ruiz in the office. He noted the high fevers and cellulitis from the toes to the knee and advised her to go to the emergency room for further workup. Radiographs did show strong evidence of osteomyelitis. He recommended a transmetatarsal amputation to me pending a full workup. I spoke to the patient. She is complaining of extreme pain in the right lower extremity. She states that she has had difficulty healing surgeries in the past but had an arterial bypass and since then has not had that issue. She states she has had a wound on the lateral aspect of her foot for a few months now but it has been healing slowly but steadily, same with a left plantar wound. She is unaware of how long she has had the wound around the third digit. She is complaining only of feeling feverish and pain at this time. PAST MEDICAL HISTORY 1. Lupus. 2. Diabetes. 3. Hypertension. 4. Coronary artery disease. 5. Asthma. PAST SURGICAL HISTORY 1. Previous CABG. 2. Bypass to the right lower extremity. 3. Colostomy. 4. Reversal of colostomy. 5. Cardiac stent. 6. Breast implants. 7. Kidney stones. 8. Hysterectomy. 9. Tonsillectomy. SOCIAL HISTORY Noncontributory. She lives at home with their . Denies any alcohol or drug abuse. MEDICATIONS Please see list. ALLERGIES PENICILLIN. She reports anaphylaxis. BACTRIM. IODINE. SHELLFISH. PREVIOUS HISTORY OF MRSA. VITAL SIGNS Temperature is 97.9, pulse 71, respiratory rate 18, blood pressure 78/44, pulse ox 96% O2 on room air. LABORATORY DATA White count 13.1, hemoglobin 10.2, hematocrit 31.5, platelets 274. INR 1.0. Sodium 130, potassium 4.3, chloride 98, BUN 29, glucose 130. Wound cultures and blood cultures pending. Foot MRI pending. PHYSICAL EXAMINATION On physical exam the patient has nonpalpable DP and PT pulses but cap fill time is less than 3 seconds and both feet feel well-perfused. Moderate to severe edema of the right foot and the lower leg below the knee which may be to contributing to the difficulty assessing pulses. Left plantar hallux bone 1-cm x 1-cm x 0. No deep probing, no erythema. Fibrogranular base. No drainage. No malodor. Otherwise left foot is unremarkable. The right foot with erythema from the digits to just below the knee as well as edema. Circumferential deep probing ulceration around the third digit with exposed bone. Plantarly a several superficial pockets that are fluctuant on the distal forefoot. Positive malodor. Positive tenderness to touch. ASSESSMENT/PLAN 1. Left foot stable hallux ulcer. 2. Right foot third digit ulceration with cellulitis and suspected osteomyelitis. - Deep wound cultures obtained at bedside, results pending. - Sufficient deepb wound cultures were obtained at bedside. Therefore I felt it appropriate to start antibiotics. The patient's cellulitis and erythema needs to decrease to allow for optimized outcomes of surgery tomorrow. Reduction in infection may also help reduce narcotic needs. - Plan for a transmetatarsal amputation surgery tomorrow. The patient is agreeable and we have discussed the procedure in detail. This is to allow for soft tissue closure as well as functional ambulation in the future. She already has her second and fifth digits amputated. - N.p.o. after midnight. - Bandage instructions placed. - MRI pending. Thank you for this consultation. Vale OSBORNE/SSB /7:49 PM /5:21 AM RAMON
[2016-10-03] MEDS: ISOSORBIDE MONONITRATE 30 MG TAB PO SCH (05:45)
[2016-10-03 06:39] LABS: AUTOMATED NEUTROPHIL # 9.8 TH/MM3 (1.8-7.7); BASOPHIL % 0.4 % (0.0-2.0); EOSINOPHIL # 0.1 TH/MM3 (0-0.4); EOSINOPHIL % 0.9 % (0.0-4.0); HEMATOCRIT 30.8 % (35.0-46.0); HEMO FLAGS DIFF FINAL; LYMPH % 8.2 % (9.0-44.0); MEAN CELL VOLUME 84.3 FL (80.0-100.0); MEAN CORPUSCULAR HEMOGLOBIN 27.1 PG (27.0-34.0); MEAN CORPUSCULAR HGB CONC 32.2 % (32.0-36.0); MONO % 10.5 % (0.0-8.0); PLATELET COUNT 268 TH/MM3 (150-450); RED BLOOD COUNT 3.65 MIL/MM3 (4.00-5.30); RED CELL DISTRIBUTION WIDTH 17.3 % (11.6-17.2); WHITE BLOOD COUNT 12.3 TH/MM3 (4.0-11.0)
[2016-10-03 06:52] LABS: BICARBONATE 24.4 MEQ/L (21.0-32.0); POTASSIUM 4.3 MEQ/L (3.5-5.1)
--- NOTE | 2016-10-03 07:53 | HHI.PR ---
Subjective Remarks Follow up for right foot osteomyelitis. The patient reports continued pain, swelling, erythema extending from the right 3rd toe, foot, and up the right leg. Pain temporarily relieved by IV morphine. She reports subjective fevers/ chills overnight, no documented fevers. She was able to tolerate dinner last night. She will be going for surgery today with Dr. Spaulding. Objective Vitals Vital Signs Date Time Temp Pulse Resp B/P Pulse Ox O2 Delivery O2 Flow Rate FiO2 10/03/16 04:11 98.1 95 20 118/56 98 10/03/16 00:47 85 10/03/16 00:18 99.1 84 20 151/68 98 10/02/16 23:00 70 18 129/65 98 Room Air 10/02/16 19:00 73 18 138/61 99 Room Air 10/02/16 18:07 66 18 153/67 99 Room Air 10/02/16 14:46 97.9 71 18 78/44 96 Room Air Result Diagram: 10/03/16 0517 10/03/16 0517 Imaging Last Impressions Chest X-Ray 10/02/16 1625 Signed Impressions: Service Date/Time: Sunday, October 02, 2016 16:49 - CONCLUSION: Compensated cardiomegaly, negative for an acute infiltrate or failure. Sean Lawler MD FACR Lower Extremity Ultrasound 10/02/16 0000 Signed Impressions: Service Date/Time: Sunday, October 02, 2016 23:26 - CONCLUSION: 1. Negative for deep venous thrombosis. 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 Right inguinal lymph nodes mildly enlarged. Abdullahi Yu MD Foot MRI 10/02/16 0000 Signed Impressions: Service Date/Time: Sunday, October 02, 2016 20:29 - CONCLUSION: 3 discrete fluid collections are identified in the mid and forefoot which may or present abscess collections. Abnormal signal intensity with bone marrow edema and destructive cortical changes are identified in the first and third metatarsal which may represent osteomyelitis. Changes in the third metatarsal associated with a fistulous tract extending to the plantar surface. The second and fifth metatarsals and toes have been amputated. No evidence of acute or chronic inflammatory changes involving the hindfoot. Roldan Graves MD Objective Remarks GENERAL: Well-nourished, well-developed female patient in NAD. SKIN: Warm and dry. See extremities below. HEENT: Normocephalic. Atraumatic. Pupils equal and round. No scleral icterus. No injection or drainage. Mucous membranes pink and moist. NECK: Supple. Trachea midline. CARDIOVASCULAR: Regular rate and rhythm. S1, S2 noted. No murmur appreciated. RESPIRATORY: No accessory muscle use. Clear to auscultation. Breath sounds equal bilaterally. GASTROINTESTINAL: Abdomen soft, non-tender, nondistended. Normoactive bowel sounds x4. MUSCULOSKELETAL: Chronic right 2nd and 5th toe amputations. Right 3rd toe with ulceration covered with dressing, and surrounding erythema/edema that extends up to the proximal knee. Left foot hallux ulceration, covered with dressing. Capillary refill < 2seconds of bilateral feet. NEUROLOGICAL: Awake and alert. No obvious cranial nerve deficits. Motor grossly within normal limits. Normal speech. PSYCHIATRIC: Appropriate mood and affect; insight and judgment normal. Medications and IVs Current Medications Medications (Trade) Dose Ordered Sig/Seng Route Start Time Stop Time Status Last Admin ([place] 7.5-325 Mg) 2 tab Q6H PRN PO 10/02/16 19:45 Morphine Sulfate 4 mg 4 mg Q6HR PRN IV PUSH 10/02/16 19:45 10/03/16 01:50 (Vancomycin Consult Pharmacy) 0 ml @ 0 mls/hr UNSCH OTHER 10/02/16 19:45 (NS Flush) 2 ml UNSCH PRN FLUSH 10/02/16 19:45 (NS Flush) 2 ml BID FLUSH 10/02/16 21:00 (Zofran Inj) 4 mg Q6H PRN IVP 10/02/16 19:45 (Narcan Inj) 0.4 mg UNSCH PRN IV 10/02/16 19:45 (Morphine Inj) 2 mg Q3H PRN IV PUSH 10/02/16 19:45 10/03/16 05:45 (Cordarone) 200 mg DAILY PO 10/03/16 09:00 (Aspirin Chew) 81 mg DAILY CHEW 10/03/16 09:00 (Lipitor) 40 mg HS PO 10/03/16 21:00 (Cymbalta Dr) 30 mg DAILY PO 10/03/16 09:00 (Neurontin) 300 mg Q6HR PO 10/03/16 00:00 10/03/16 05:45 (Imdur) 30 mg DAILY@07 PO 10/03/16 07:00 10/03/16 05:45 (Cozaar) 25 mg DAILY PO 10/03/16 09:00 (Lopressor) 25 mg BID PO 10/03/16 09:00 (Singulair) 10 mg HS PO 10/03/16 21:00 (Zanaflex) 4 mg TID PO 10/03/16 09:00 A/P Problem List: (1) Osteomyelitis of right foot ICD Code: M86.9 Status: Acute (2) Foot ulcer, left ICD Code: L97.529 Status: Acute (3) HTN (hypertension) ICD Code: I10 Status: Chronic (4) DM (diabetes mellitus) ICD Code: E11.9 Status: Chronic (5) A-fib ICD Code: I48.91 Status: Chronic Assessment and Plan 60-year-old female with a history of hypertension, diabetes, CAD, COPD and lupus presented with: Osteomyelitis of the right foot Images reviewed: Right foot MRI shows discrete fluid collections identified in the mid and forefoot which may represent abscess collections; Abnormal signal intensity with bone marrow edema and destructive cortical changes are identified in the first and third metatarsal which may represent osteomyelitis; Changes in the third metatarsal associated with a fistulous tract extending to the plantar surface. -Doppler ultrasound negative for DVT. -Dr. Spaulding consulted, surgery planned a.m. -Vancomycin IV per Dr. Spaulding -ID consulted -Pain management with [place] and IV morphine Left foot ulcer, chronic -Dressing changes per podiatry Diabetes with neuropathy, chronic, Hgb A1c 6.9 on 12/12/15 -Hold patient's 70/30 30u bid while NPO for surgery -Monitor Accu-Cheks AC/HS and cover with low dose SSI -Continue patient's gabapentin Hypertension, chronic -Monitor vitals, BP fairly well controlled -Continue home medications losartan, metoprolol A. fib, chronic -Continue home medications amiodarone -Monitor on telemetry HLD, chronic -continue patient's statin DVT prophylaxis: SCDs, chemical prophylaxis to be determined after surgery Discussed with Dr. Barkley. Demetria Wright PA-C Oct 03, 2016 07:53
[2016-10-03] MEDS ORDERED: DEXTROSE 50% IN WATER 50 ML VIAL(D50) IV PUSH PRN (08:00)
[2016-10-03] MEDS ORDERED: GLUCAGON 1 MG/ML VIAL OTHER PRN (08:00)
[2016-10-03] MEDS: DULoxetine HCl DR 30 MG CAP PO SCH (08:01)
[2016-10-03] MEDS: ASPIRIN 81 MG CHEW TAB CHEW SCH (08:01)
[2016-10-03] MEDS: METOPROLOL TARTRATE 25 MG TAB PO SCH (08:01)
[2016-10-03] MEDS: AMIODARONE 200 MG TAB PO SCH (08:02)
[2016-10-03] MEDS: LOSARTAN 25 MG TAB PO SCH (08:02)
[2016-10-03] MEDS: SODIUM CHLORIDE 0.9% FLUSH 5 ML FLUSH FLUSH SCH ×2 (08:02→20:06)
[2016-10-03] MEDS ORDERED: BUPIVACAINE HCL PF 0.25% 30 ML VIAL ONE (09:31)
[2016-10-03] MEDS ORDERED: BUPIVACAINE HCL PF 0.5% 30 ML VIAL ONE (09:36)
[2016-10-03] MEDS ORDERED: FAMOTIDINE 20 MG/2 ML VIAL ONE (10:06)
[2016-10-03] MEDS ORDERED: MIDAZOLAM HCL 2 MG/2 ML VIAL ONE (10:06)
[2016-10-03] MEDS ORDERED: ACETAMINOPHEN 1000 MG/100 ML VIAL IV ONE (10:13)
[2016-10-03] MEDS ORDERED: ONDANSETRON HCL 4 MG/2 ML VIAL IV PUSH ONE (12:00)
[2016-10-03] MEDS ORDERED: ePHEDrine/NS 25 MG/5 ML SYR IV ONE (12:00)
[2016-10-03] MEDS ORDERED: PROPOFOL 200 MG/20 ML AMP IV ONE (12:00)
[2016-10-03] MEDS ORDERED: PHENYLEPH/NS 1000 MCG/10 ML SYR IV ONE (12:00)
[2016-10-03] MEDS ORDERED: fentaNYL CITRATE 250 MCG/5 ML AMP ONE (12:11)
[2016-10-03] MEDS ORDERED: PHENYLEPHRINE HCL 10 MG/ML VIAL ONE (12:55)
--- NOTE | 2016-10-03 13:28 | RADRPT ---
EXAM DATE/TIME: 10/03/2016 12:25 [facility] COMPARISON: No previous studies available for comparison. INDICATIONS : Post right toe amputations. MEDICAL HISTORY : Renal calculi. Lupus. Diabetic nerve pain. Diabetes. Asthma. Esophageal spasms. Depression. Anxiety. MRSA SURGICAL HISTORY : Tonsillectomy. CABG Coronary artery stent. Colostomy and reversal. Cholecystectomy. Hysterectomy. Fis deb. Bilateral mastectomy. Chemotherapy. ENCOUNTER: Subsequent ACUITY: 2 days PAIN SCORE: Non-responsive. LOCATION: Right foot FINDINGS: Three view of the right foot demonstrates the patient has had an amputation across the Lisfranc joint . Some of the second metatarsal base remains and the fifth metatarsal base remains. There is some ai r overlying the surgical margin. CONCLUSION: Status post mid foot amputation as described above. Saran Kenyon MD on October 03, 2016 at 13:16 Board Certified Radiologist. This report was verified electronically.
[2016-10-03] MEDS ORDERED: SODIUM CHLORID 0.9% IV STA (13:35)
[2016-10-03] MEDS ORDERED: SODIUM CHLORID 0.9% 500 ML INJ 500 ML IV STA (14:00)
[2016-10-03] MEDS ORDERED: TERBUTALINE INJ 1 MG/ML AMP SQ PRN (14:45)
[2016-10-03] MEDS ORDERED: SODIUM CHLORID 0.9% 500 ML INJ 500 ML IV ONE (14:45)
[2016-10-03] MEDS ORDERED: PHENYLEPHRINE INJ 40 MG in DEXTROSE 5% IN WATE 500 ML INJ 496 ML IV SCH ×2 (15:45)
--- NOTE | 2016-10-03 16:01 | HHI.PR ---
Subjective Remarks Patient seen in PACU after surgery Patient became hypotensive, received 1.2 L of fluid during surgery, propofol and fentanyl. Estimated blood loss is 25 cc. When patient was seen, patient denies any shortness of breath, sleepy but easily arousable, denies any shortness of breath, nausea, vomiting, chest pain, mild lightheadedness and dizziness and sleepiness but otherwise alert, awake, oriented 3. Objective Vitals Vital Signs Date Time Temp Pulse Resp B/P Pulse Ox O2 Delivery O2 Flow Rate FiO2 10/03/16 12:40 56 15 84/46 94 Nasal Cannula 4 10/03/16 12:30 58 15 80/39 94 Nasal Cannula 4 10/03/16 12:22 58 15 81/44 94 Simple Mask 6 10/03/16 12:15 58 15 82/49 98 Simple Mask 6 10/03/16 12:08 57 15 80/42 98 Simple Mask 6 10/03/16 12:03 64 15 70/43 97 Simple Mask 6 10/03/16 12:02 98.3 59 14 69/39 97 Simple Mask 6 10/03/16 08:34 99.3 91 17 136/70 95 10/03/16 08:11 18 10/03/16 06:51 84 10/03/16 04:11 98.1 95 20 118/56 98 10/03/16 00:47 85 10/03/16 00:18 99.1 84 20 151/68 98 10/02/16 23:00 70 18 129/65 98 Room Air 10/02/16 19:00 73 18 138/61 99 Room Air 10/02/16 18:07 66 18 153/67 99 Room Air I/O 10/02/16 10/02/16 10/02/16 10/03/16 10/03/16 10/03/16 07:00 15:00 23:00 07:00 15:00 23:00 Intake Total 450 ml Output Total 25 ml Balance 425 ml Intake Other 450 ml Output Estimated Blood Loss 25 ml # Voids 1 1 Result Diagram: 10/03/1651610/03/16516 Objective Remarks GENERAL: Well-nourished, well-developed female patient in [facility]. SKIN: Warm and dry. See extremities below. HEENT: Normocephalic. Atraumatic. Pupils equal and round. No scleral icterus. NECK: Supple. Trachea midline. CARDIOVASCULAR: Regular rate and rhythm. S1, S2 noted. No murmur appreciated. Not tachycardic. RESPIRATORY: No accessory muscle use. Clear to auscultation. Breath sounds equal bilaterally. Poor effort. GASTROINTESTINAL: Abdomen soft, non-tender, nondistended. Normoactive bowel sounds x4. MUSCULOSKELETAL: Chronic right 2nd and 5th toe amputations. Right 3rd toe with dressings in place. NEUROLOGICAL: Awake and alert and to self, place, date. No obvious cranial nerve deficits. Motor grossly within normal limits. Normal speech. A/P Problem List: (1) Osteomyelitis of right foot ICD Code: M86.9 Status: Acute (2) Foot ulcer, left ICD Code: L97.529 Status: Acute (3) HTN (hypertension) ICD Code: I10 Status: Chronic (4) DM (diabetes mellitus) ICD Code: E11.9 Status: Chronic (5) A-fib ICD Code: I48.91 Status: Chronic Assessment and Plan 60-year-old female with a history of hypertension, diabetes, CAD, COPD and lupus presented with: Osteomyelitis of the right foot Images reviewed: Right foot MRI shows discrete fluid collections identified in the mid and forefoot which may represent abscess collections; Abnormal signal intensity with bone marrow edema and destructive cortical changes are identified in the first and third metatarsal which may represent osteomyelitis; Changes in the third metatarsal associated with a fistulous tract extending to the plantar surface. -Doppler ultrasound negative for DVT. Status post amputation -Vancomycin IV per Dr. Spaulding, start aztreonam. Check blood culture Hypotension-could be anesthesia induced, received fentanyl 25 g, propofol 100 mg, estimated blood loss is 25 cc, will bolus 1 L of normal saline, continue Marquise -Synephrine, transfer to ICU, keep map above 65, mentation is okay. Sleepy but easily arousable. No need for Narcan. Lactic acid, CBC, BMP. Left foot ulcer, chronic -Dressing changes per podiatry Diabetes with neuropathy, chronic, Hgb A1c 6.9 on 12/12/15 -Hold patient's 70/30 30u bid while NPO for surgery -Monitor Accu-Cheks AC/HS and cover with low dose SSI -Continue patient's gabapentin Hypertension, chronic -Monitor vitals, BP fairly well controlled, obviously, will hold antihypertensives for now. A. fib, chronic -Continue home medications amiodarone -Monitor on telemetry HLD, chronic -continue patient's statin DVT prophylaxis: SCDs, chemical prophylaxis to be determined after surgery Discussed with RN. Titrate Marquise-Synephrine to keep map more than 65. Aggregate critical care time was 35 minutes spent at bedside or in the hospital cooper. Time to perform other separately billable procedures was not included in the critical care time. My time did not include minutes spent treating any other patients simultaneously or on activities that did not directly contribute to the patient's treatment. The services I provided to this patient were to treat and/or prevent clinically significant deterioration that could result in: organ failure, , disability or imminent clinical deterioration in the patient's condition. I provided critical care services requiring my management, as noted below: chart data review, documentation time, medication orders and management, vital sign assessments/reviewing monitor data, ordering and reviewing lab tests, ordering and interpreting/reviewing x-rays and diagnostic studies, care of the patient and discussion with other physicians and caregivers as needed. Maru Barkley MD Oct 03, 2016 16:01
[2016-10-03] MEDS: VANCOMYCIN INJ 1,500 MG in SODIUM CHLORID 0.9% 500 ML INJ 500 ML IV SCH ×2 (16:10→16:20)
[2016-10-03 16:52] LABS: BASOPHIL # 0.1 TH/MM3 (0-0.2); BASOPHIL % 0.8 % (0.0-2.0); EOSINOPHIL # 0.2 TH/MM3 (0-0.4); EOSINOPHIL % 1.6 % (0.0-4.0); HEMATOCRIT 27.5 % (35.0-46.0); HEMO FLAGS DIFF FINAL; LYMPH % 11.2 % (9.0-44.0); LYMPHOCYTE # 1.2 TH/MM3 (1.0-4.8); MEAN CELL VOLUME 84.3 FL (80.0-100.0); MEAN CORPUSCULAR HEMOGLOBIN 27.1 PG (27.0-34.0); MEAN CORPUSCULAR HGB CONC 32.1 % (32.0-36.0); MONO % 9.9 % (0.0-8.0); NEUT % 76.5 % (16.0-70.0); PLATELET COUNT 259 TH/MM3 (150-450); RED BLOOD COUNT 3.26 MIL/MM3 (4.00-5.30); RED CELL DISTRIBUTION WIDTH 17.1 % (11.6-17.2); WHITE BLOOD COUNT 10.4 TH/MM3 (4.0-11.0)
[2016-10-03] MEDS ORDERED: NALOXONE HCL 0.4 MG/ML AMP IV PUSH ONE (17:00)
[2016-10-03] MEDS: AZTREONAM INJ 1,000 MG in SODIUM CHLORIDE 0.9% INJ 100 ML IV SCH (19:00)
[2016-10-03] MEDS: ATORVASTATIN 40 MG TAB PO SCH (20:05)
[2016-10-03] MEDS: MONTELUKAST SODIUM 10 MG TAB PO SCH (20:06)
[2016-10-03] MEDS: INSULIN ASPART SUPPLEMENTAL SCALE SQ SCH (20:06)
--- NOTE | 2016-10-03 23:12 | PD.ID.CON ---
History of Present Illness Service ID Consult Requested By Dr Manzo Reason for Consult R foot DFI, osteo Primary Care Physician Alonso Robins MD Diagnoses: History of Present Illness 60 yo F with extensive past med hx including PVD, DM and tobaccoism (just quit smoking 9 mos ago) sp RLE periferal bypass presented to the ED from Dr. Ruiz's office forsurgical treatment of her chronic right foot osteo. She has been dealing with the foot infection since December of 2015, and she is s/p multiple courses of antibiotics. She noted worsening in last 2 weeks having increased pain and swelling of the planter side of right foot.\ She has no fever, chills and has mild leukocytosis on presentation SHe underwent R transmetatarsal amputation today and post operatively experienced some issues with hypotension She is admitted to ICU from PACU and at the time of her interview she has stable afebrile vss on a very small dose on neosynephrine Her foot cl xis + for MRSA SHe has very small pyuria and reflex clx is P She was started on azactam, vancomycin Review of Systems Except as stated in HPI: all other systems reviewed are Neg Past Family Social History Allergies: Coded Allergies: Bactrim (Verified Allergy, Severe, Shortness of Breath, 06/06/16) Iodine (Verified Allergy, Severe, THROAT SWELLS, 06/06/16) pt states does not have a allergy to Iodine 01/11/16 JF Penicillin (Verified Allergy, Severe, STOPPED BREATHING, 06/06/16) Shellfish (Verified Allergy, Severe, THROAT SWELLS, 06/06/16) *MDRO Multi-Drug Resistant Organism (Verified Adverse Reaction, Unknown, 06/06/16) 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 Past Medical History Lupus HTN COPD, oxygen as needed at home DM CAD CHF Afib colovesiluar fistula Past Surgical History CABG 2013 Right illiac artery bypass 2015 Right 2nd and 5th toe amputation colostomy Mastectomy 1979 Breast augmentation Hysterectomy Tonsillectomy Active Ordered Medications Medications where reviewed in EMR Antibiotics Include: aztreonam vancomycin Family History DAD: CAD, [place] Mom: breast cancer, bone cancer Grandfather: DM Social History Tobacco use: Quit 9 months ago Alcohol use: Denies Illicit drug use: Denies Physical Exam Vital Signs Vital Signs Date Time Temp Pulse Resp B/P Pulse Ox O2 Delivery O2 Flow Rate FiO2 10/03/16 20:22 100 4.00 10/03/16 20:00 97.9 56 21 146/63 100 10/03/16 20:00 58 10/03/16 19:00 52 17 112/54 99 Nasal Cannula 3 10/03/16 18:45 57 17 82/39 99 Nasal Cannula 3 10/03/16 18:35 57 17 91/49 99 Nasal Cannula 3 10/03/16 18:20 55 17 125/57 99 Nasal Cannula 3 10/03/16 18:05 55 17 125/57 99 Nasal Cannula 3 10/03/16 17:50 55 17 128/69 99 Nasal Cannula 3 10/03/16 17:35 76 17 115/56 94 Nasal Cannula 3 10/03/16 17:20 55 17 136/57 94 Nasal Cannula 3 10/03/16 17:05 54 17 113/63 99 Nasal Cannula 3 10/03/16 16:50 53 17 113/62 99 Nasal Cannula 3 10/03/16 16:35 55 17 119/60 99 Nasal Cannula 3 10/03/16 16:20 59 17 110/63 99 Nasal Cannula 3 10/03/16 16:05 54 16 129/69 99 Nasal Cannula 3 10/03/16 15:50 53 16 133/70 99 Nasal Cannula 3 10/03/16 15:25 67 16 112/65 99 Nasal Cannula 3 10/03/16 15:10 67 16 125/63 99 Nasal Cannula 3 10/03/16 14:50 59 16 105/59 98 Nasal Cannula 3 10/03/16 14:35 67 16 124/63 99 Nasal Cannula 3 10/03/16 14:20 54 15 103/55 99 Nasal Cannula 3 10/03/16 14:05 55 15 98/64 99 Nasal Cannula 3 10/03/16 13:50 54 15 119/59 99 Nasal Cannula 3 10/03/16 13:35 54 15 119/59 99 Nasal Cannula 3 10/03/16 13:20 55 15 114/46 99 Nasal Cannula 3 10/03/16 13:05 55 15 89/46 99 Nasal Cannula 3 10/03/16 12:55 56 15 84/46 94 Nasal Cannula 4 10/03/16 12:40 56 15 84/46 94 Nasal Cannula 4 10/03/16 12:30 58 15 80/39 94 Nasal Cannula 4 10/03/16 12:22 58 15 81/44 94 Simple Mask 6 10/03/16 12:15 58 15 82/49 98 Simple Mask 6 10/03/16 12:08 57 15 80/42 98 Simple Mask 6 10/03/16 12:03 64 15 70/43 97 Simple Mask 6 10/03/16 12:02 98.3 59 14 69/39 97 Simple Mask 6 10/03/16 08:34 99.3 91 17 136/70 95 10/03/16 08:11 18 10/03/16 06:51 84 10/03/16 04:11 98.1 95 20 118/56 98 10/03/16 00:47 85 10/03/16 00:18 99.1 84 20 151/68 98 Physical Exam CONSTITUTIONAL/GENERAL: This is an adequately nourished patient, in no apparent distress. TUBES/LINES/DRAINS: SKIN: No jaundice, rashes, or lesions. Ecchymoses on upper extremities. No wounds seen anteriorly. Skin temperature appropriate. Not diaphoretic. Breast: sp b/l mastectomy with well healed scars HEAD: Atraumatic. Normocephalic. EYES: Pupils equal and round and reactive. Extraocular motions intact. No scleral icterus. No injection or drainage. Fundi not examined. ENT: Hearing grossly normal. Nose without bleeding or purulent drainage. Throat without visible erythema, exudates, masses, or lesions. Edentulous NECK: Trachea midline. Supple, nontender. . CARDIOVASCULAR: Regular rate and rhythm without murmurs, gallops, or rubs. No JVD. Peripheral pulses symmetric. RESPIRATORY/CHEST: Symmetric, unlabored respirations. Clear to auscultation. Breath sounds equal bilaterally. No wheezes, rales, or rhonchi. GASTROINTESTINAL: Abdomen soft globular, non-tender, nondistended. No hepato- splenomegaly, or palpable masses. No guarding. Bowel sounds present. Stoma in place LLQ GENITOURINARY: Without palpable bladder distension. Avendano catheter in place. MUSCULOSKELETAL: Extremities without clubbing, cyanosis, RLE is edematous, erythematous all the was to the knee with enlarged ipsilateral lymphadenopathy. Well healed incision from periferal bypass Sp TMA R foot, surgical dreiing intact L foot with non palpable pedal pulse, Ulcer on plantar aspect of L hallux with fibrinous dc No joint tenderness or effusion noted. No calf tenderness. No mottling or clubbing. LYMPHATICS: No palpable cervical or supraclavicular adenopathy. NEUROLOGICAL: Awake and alert. Motor and sensory grossly within normal limits. Follows commands. Normal speech Moves all extremities. PSYCHIATRIC: No obvious anxiety/depression. no apparent hallucinations or other psychotic thought process. Laboratory Laboratory Tests Test 10/03/16 10/03/16 05:17 16:28 White Blood Count 12.3 10.4 Red Blood Count 3.65 3.26 Hemoglobin 9.9 8.8 Hematocrit 30.8 27.5 Mean Corpuscular Volume 84.3 84.3 Mean Corpuscular Hemoglobin 27.1 27.1 Mean Corpuscular Hemoglobin 32.2 32.1 Concent Red Cell Distribution Width 17.3 17.1 Platelet Count 268 259 Mean Platelet Volume 7.1 6.8 Neutrophils (%) (Auto) 80.0 76.5 Lymphocytes (%) (Auto) 8.2 11.2 Monocytes (%) (Auto) 10.5 9.9 Eosinophils (%) (Auto) 0.9 1.6 Basophils (%) (Auto) 0.4 0.8 Neutrophils # (Auto) 9.8 8.0 Lymphocytes # (Auto) 1.0 1.2 Monocytes # (Auto) 1.3 1.0 Eosinophils # (Auto) 0.1 0.2 Basophils # (Auto) 0.0 0.1 CBC Comment DIFF FINAL DIFF FINAL Differential Comment Sodium Level 135 Potassium Level 4.3 Chloride Level 99 Carbon Dioxide Level 24.4 Anion Gap 12 Blood Urea Nitrogen 23 Creatinine 1.33 Estimat Glomerular Filtration 41 Rate Random Glucose 127 Calcium Level 8.9 Lactic Acid Level 1.1 Date/Time Procedure Status Source Growth 10/02/16 20:00 Urine Culture - Preliminary Resulted Urine Clean Catch IMMATURE GROWTH - REINCUBATE 10/02/16 16:50 Aerobic Blood Culture - Preliminary Resulted Blood Peripheral NO GROWTH IN 1 DAY 10/02/16 16:50 Anaerobic Blood Culture - Preliminary Resulted Blood Peripheral NO GROWTH IN 1 DAY 10/02/16 15:45 Gram Stain - Final Resulted Wound Foot 10/02/16 15:45 Wound Culture - Preliminary Resulted S. Aureus Mrsa Result Diagram: 10/03/16 1628 10/03/16516 Imaging Last Impressions Foot X-Ray 10/03/16 0000 Signed Impressions: Service Date/Time: October 12:25 - CONCLUSION: Status post mid foot amputation as described above. Saran Kenyon MD Chest X-Ray 10/02/16 1625 Signed Impressions: Service Date/Time: Sunday, October 02, 2016 16:49 - CONCLUSION: Compensated cardiomegaly, negative for an acute infiltrate or failure. Sean Lawler MD FACR Lower Extremity Ultrasound 10/02/16 0000 Signed Impressions: Service Date/Time: Sunday, October 02, 2016 23:26 - CONCLUSION: 1. Negative for deep venous thrombosis. 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 Right inguinal lymph nodes mildly enlarged. Abdullahi Yu MD Foot MRI 10/02/16 0000 Signed Impressions: Service Date/Time: Sunday, October 02, 2016 20:29 - CONCLUSION: 3 discrete fluid collections are identified in the mid and forefoot which may or present abscess collections. Abnormal signal intensity with bone marrow edema and destructive cortical changes are identified in the first and third metatarsal which may represent osteomyelitis. Changes in the third metatarsal associated with a fistulous tract extending to the plantar surface. The second and fifth metatarsals and toes have been amputated. No evidence of acute or chronic inflammatory changes involving the hindfoot. Roldan Graves MD Assessment and Plan Assessment and Plan MRSA DFI, osteo R foot sp TMA in the settings of PVD ? UTI Multiple med prob HIgh grade PCN allergy (anaphylaxis) - cont vancomycin -cont azactam - FU P clx untill final Fiona Conner MD Oct 03, 2016 23:12
--- NOTE | 2016-10-03 23:56 | EKG ---
Date Performed: 10/02/2016 Time Performed: 17:15:13 PTAGE: 60 years EKG: Sinus rhythm WITH SHORT UT INTERVAL INTRAVENTRICULAR CONDUCTION DELAY INFERIOR MYOCARDIAL INFARCTION ABNORMAL ECG PREVIOUS TRACING : 12/12/2015 16.22 Compared to prior tracing no significant change DOCTOR: Alex Manzo Interpretating Date/Time 10/03/2016 23:54:16
[2016-10-04] VITALS: BP 141/63; PULSE 65; RESP 28; TEMP 98.1; O2SAT 100
[2016-10-04] MEDS: AZTREONAM INJ 1,000 MG in SODIUM CHLORIDE 0.9% INJ 100 ML IV SCH ×3 (00:26→16:59)
[2016-10-04] MEDS: ACETAMINOPHEN/HYDROcodone 325 MG/7.5 MG TAB PO PRN ×2 (00:38→09:44)
[2016-10-04] MEDS: GABAPENTIN 300 MG CAP PO SCH ×5 (00:42→23:29)
[2016-10-04] MEDS: MORPHINE SULFATE 4 MG/ML INJ IV PUSH PRN ×6 (02:05→23:30)
[2016-10-04 04:00] VITALS: BP 128/60; PULSE 69; RESP 12; TEMP 98.5; O2SAT 95
[2016-10-04] MEDS: INSULIN ASPART SUPPLEMENTAL SCALE SQ SCH ×4 (05:50→21:01)
[2016-10-04 06:29] LABS: AUTOMATED NEUTROPHIL # 7.4 TH/MM3 (1.8-7.7); BASOPHIL # 0.1 TH/MM3 (0-0.2); BASOPHIL % 0.8 % (0.0-2.0); EOSINOPHIL # 0.1 TH/MM3 (0-0.4); EOSINOPHIL % 1.5 % (0.0-4.0); HEMATOCRIT 28.4 % (35.0-46.0); HEMO FLAGS DIFF FINAL; LYMPHOCYTE # 0.8 TH/MM3 (1.0-4.8); MEAN CELL VOLUME 84.8 FL (80.0-100.0); MEAN CORPUSCULAR HEMOGLOBIN 27.5 PG (27.0-34.0); MEAN CORPUSCULAR HGB CONC 32.4 % (32.0-36.0); MONO % 8.7 % (0.0-8.0); PLATELET COUNT 245 TH/MM3 (150-450); RED BLOOD COUNT 3.35 MIL/MM3 (4.00-5.30); RED CELL DISTRIBUTION WIDTH 16.9 % (11.6-17.2); WHITE BLOOD COUNT 9.2 TH/MM3 (4.0-11.0)
[2016-10-04 06:59] LABS: BICARBONATE 23.7 MEQ/L (21.0-32.0)
[2016-10-04 07:00] LABS: POTASSIUM 4.9 MEQ/L (3.5-5.1)
[2016-10-04 08:00] VITALS: BP 155/83; PULSE 75; PULSE 78; RESP 15; TEMP 98.1; O2SAT 100
[2016-10-04] MEDS: DULoxetine HCl DR 30 MG CAP PO SCH (08:16)
[2016-10-04] MEDS: ASPIRIN 81 MG CHEW TAB CHEW SCH (08:16)
[2016-10-04] MEDS: AMIODARONE 200 MG TAB PO SCH (08:16)
[2016-10-04] MEDS: SODIUM CHLORIDE 0.9% FLUSH 5 ML FLUSH FLUSH SCH ×2 (08:16→21:00)
--- NOTE | 2016-10-04 11:30 | MP ---
cc: VALE SPAULDING DATE OF SURGERY 10/03/[address] Vale Spaulding [facility] [employer] [facility] staff PREOPERATIVE DIAGNOSIS 1. Right foot osteomyelitis 2. Right foot ulceration POSTOPERATIVE DIAGNOSES 1. Right foot osteomyelitis 2. Right foot ulceration PROCEDURE PERFORMED 1. Root transmetatarsal amputation 2. Excisional wound debridement and closure. 3. Application of RITA wound Vac dressing PATHOLOGY SENT The distal forefoot was sent to pathology for further evaluation. ANESTHESIA General HEMOSTASIS Pneumatic ankle tourniquet ESTIMATED BLOOD LOSS 20 mL INJECTABLES None MATERIALS USED 2-0 Prolene, 3-0 Prolene and a RITA Resendiz and Nephew negative pressure dressing. COMPLICATIONS None INDICATION Ms. Finnegan is a 60-year-old pain female patient known to my patient Dr. William Ruiz. She has a severe infection of the right lower extremity with multiple abscesses and osteomyelitis. She has a previous history of amputations of the second and fifth partial rays. I spoke to her at length about the results of the MRI and the need for a transmetatarsal amputation and possible IV antibiotics postoperatively. The consent was signed. The procedure was explained. No guarantees were given. The patient is understanding of the need and the procedure ahead. PROCEDURE Under mild sedation, the patient was brought into the operating room and placed on the operating table in the supine position. Following IV sedation, pneumatic ankle tourniquet was placed on the distal aspect of the ankle away from her vascular graft site. The foot was then scrubbed, prepped and draped in the usual aseptic manner and the pneumatic ankle tourniquet was inflated to 250 mmHg. There were two distinct areas on the of wounds, one on the plantar aspect of the foot with purulent drainage and measuring about 0.75 cm x 0.5 cm deep to bone and then on the lateral aspect there was one which was 1.0 cm x 0.5 cm x 0. Using a fluoroscopy guide, the level of metatarsal base was evaluated and marked. Two semi-elliptical incisions were created, one on the dorsal aspect of the foot and one on the plantar aspect of the foot knee and meeting on the medial and lateral aspect. This was deepened through skin and subcutaneous tissue with care being taken to identify and retract any vital neurovascular structures and deepened through until bone was visualized. An oscillating saw was used to cut the first, third, and fifth metatarsals at a dorsal distal to plantar proximal angle. Once they were fully severed, the distal forefoot was removed from the field in toto and sent to pathology for further evaluation. The remaining metatarsal bases of one and five both showed necrotic bone and no healthy bleeding. Decision was made to disarticulate these areas. The cartilage on the cuneiform did appear healthy and un=violated. All nonviable soft tissue was removed from the skin surfaces. There were copious amounts of scar tissue as well as liquefied fat and necrotic tissue that was removed. The area was then flushed with copious amounts of sterile saline using a 3 liters bag and a pulse lavage. Attention was then directed to the plantar aspect of the foot where two linear longitudinal semi-elliptical incisions were created on the medial and lateral side of the plantar ulcer and the ulcer was cut out of the skin and removed from the field in toto. The incisions were then closed using a 2-0 Prolene. The flaps from the transmetatarsal amputation were easily closed with minimal pressure tension however, I decided that they could easily be extended to remove the lateral wound as well so the plantar and dorsal incisions were extended proximally in order to encompass that wound and remove it. The skin was then closed with 2-0 and 3-0 Prolene and dressed with sterile Adaptic RITA negative wound Vac dressing, cast padding and a light René wrap. Prior to closing the skin, the tourniquet was released. There was a prompt hyperemic response to the skin around the foot and any and all bleeders were ligated as necessary. The patient tolerated the procedure and the anesthesia well. She will recover in the PACU for a period of time before being discharged back to her room with written and oral postoperative instructions. Vale WEST /4:15 PM /11:13 AM RAMON
[2016-10-04 12:00] VITALS: BP 91/44; PULSE 69; PULSE 71; RESP 16; TEMP 97.2; O2SAT 96
--- NOTE | 2016-10-04 12:55 | HHI.PR ---
Subjective Remarks Follow-up for hypotension and Blood pressure is better, afebrile, no dizziness or lightheadedness, mental status back to normal. Pain is mildly controlled with pain medications. Objective Vitals Vital Signs Date Time Temp Pulse Resp B/P Pulse Ox O2 Delivery O2 Flow Rate FiO2 10/04/16 12:00 71 10/04/16 12:00 97.2 69 16 91/44 96 10/04/16 08:00 98.1 75 15 155/83 100 10/04/16 08:00 78 10/04/16 04:00 69 10/04/16 04:00 98.5 69 12 128/60 95 10/04/16 00:00 65 10/04/16 00:00 98.1 65 28 141/63 100 10/03/16 20:22 100 4.00 10/03/16 20:00 97.9 56 21 146/63 100 10/03/16 20:00 58 10/03/16 19:00 52 17 112/54 99 Nasal Cannula 3 10/03/16 18:45 57 17 82/39 99 Nasal Cannula 3 10/03/16 18:35 57 17 91/49 99 Nasal Cannula 3 10/03/16 18:20 55 17 125/57 99 Nasal Cannula 3 10/03/16 18:05 55 17 125/57 99 Nasal Cannula 3 10/03/16 17:50 55 17 128/69 99 Nasal Cannula 3 10/03/16 17:35 76 17 115/56 94 Nasal Cannula 3 10/03/16 17:20 55 17 136/57 94 Nasal Cannula 3 10/03/16 17:05 54 17 113/63 99 Nasal Cannula 3 10/03/16 16:50 53 17 113/62 99 Nasal Cannula 3 10/03/16 16:35 55 17 119/60 99 Nasal Cannula 3 10/03/16 16:20 59 17 110/63 99 Nasal Cannula 3 10/03/16 16:05 54 16 129/69 99 Nasal Cannula 3 10/03/16 15:50 53 16 133/70 99 Nasal Cannula 3 10/03/16 15:25 67 16 112/65 99 Nasal Cannula 3 10/03/16 15:10 67 16 125/63 99 Nasal Cannula 3 10/03/16 14:50 59 16 105/59 98 Nasal Cannula 3 10/03/16 14:35 67 16 124/63 99 Nasal Cannula 3 10/03/16 14:20 54 15 103/55 99 Nasal Cannula 3 10/03/16 14:05 55 15 98/64 99 Nasal Cannula 3 10/03/16 13:50 54 15 119/59 99 Nasal Cannula 3 10/03/16 13:35 54 15 119/59 99 Nasal Cannula 3 10/03/16 13:20 55 15 114/46 99 Nasal Cannula 3 10/03/16 13:05 55 15 89/46 99 Nasal Cannula 3 10/03/16 12:55 56 15 84/46 94 Nasal Cannula 4 I/O 10/03/16 10/03/16 10/03/16 10/04/16 10/04/16 10/04/16 06:59 14:59 22:59 06:59 14:59 22:59 Intake Total 950 ml 1440 ml 210 ml Output Total 25 ml 1400 ml 900 ml Balance 925 ml 40 ml -690 ml Intake Oral 240 ml IV Total 500 ml 1200 ml 210 ml Other 450 ml Output Urine Total 1400 ml 900 ml Estimated Blood Loss 25 ml # Voids 1 1 Result Diagram: 10/04/16 0603 10/04/16 0603 Objective Remarks GENERAL: Well-nourished, well-developed female patient in [facility]. SKIN: Warm and dry. See extremities below. HEENT: Normocephalic. Atraumatic. Pupils equal and round. No scleral icterus. NECK: Supple. Trachea midline. CARDIOVASCULAR: Regular rate and rhythm. S1, S2 noted. No murmur appreciated. Not tachycardic. RESPIRATORY: No accessory muscle use. Clear to auscultation. Breath sounds equal bilaterally. Poor effort. GASTROINTESTINAL: Abdomen soft, non-tender, nondistended. Normoactive bowel sounds x4. MUSCULOSKELETAL: Chronic right 2nd and 5th toe amputations. Right foot, status post toe amputations, dressings in drain in place. NEUROLOGICAL: Alert awake and oriented 3, no focal deficits. A/P Problem List: (1) Osteomyelitis of right foot ICD Code: M86.9 Status: Acute (2) Foot ulcer, left ICD Code: L97.529 Status: Acute (3) HTN (hypertension) ICD Code: I10 Status: Chronic (4) DM (diabetes mellitus) ICD Code: E11.9 Status: Chronic (5) A-fib ICD Code: I48.91 Status: Chronic Assessment and Plan 60-year-old female with a history of hypertension, diabetes, CAD, COPD and lupus presented with: Osteomyelitis of the right foot Images reviewed: Right foot MRI shows discrete fluid collections identified in the mid and forefoot which may represent abscess collections; Abnormal signal intensity with bone marrow edema and destructive cortical changes are identified in the first and third metatarsal which may represent osteomyelitis; Changes in the third metatarsal associated with a fistulous tract extending to the plantar surface. -Doppler ultrasound negative for DVT. Status post amputation -Vancomycin IV per Dr. Spaulding, continue aztreonam, blood culture negative to date. Wound culture growing MRSA. Infectious disease following, monitor creatinine. Hypotension- resolved, could be post anesthesia. CBC, BMP and lactic acid were fine. Stop Marquise-Synephrine. Left foot ulcer, chronic -Dressing changes per podiatry Diabetes with neuropathy, chronic, Hgb A1c 6.9 on 12/12/15 -Hold patient's 70/30 30u bid while NPO for surgery -Monitor Accu-Cheks AC/HS and cover with low dose SSI -Continue patient's gabapentin Hypertension, chronic -Monitor vitals, blood pressure better, restart Imdur and metoprolol, continue to hold lisinopril. A. fib, chronic -Continue home medications amiodarone -Monitor on telemetry HLD, chronic -continue patient's statin Likely chronic kidney disease-creatinine stable, continue to monitor creatinine on vancomycin. DVT prophylaxis: SCDs, chemical prophylaxis to be determined after surgery Discussed with ANTHONY. Maru Barkley MD Oct 04, 2016 12:55
[2016-10-04 16:00] VITALS: BP 147/66; PULSE 65; RESP 17; TEMP 95.3; O2SAT 98
--- NOTE | 2016-10-04 17:09 | PD.POD ---
Subjective Podiatric Problems s/p right foot aggressive TMA 10/03/16. Patient states she has continued pain and swelling in the right leg, but improved from pre operative levels. I was informed today by that the patient has a fibula fracture of the left ankle. The patient did not bring her CAM boot and is uncertain of the date of injury. She denies any n/v/f/h/c/sob. Pain score: 7 Past Med/Surg/Social History Social History Smoking Status: Former Smoker Objective Vital Signs Vital Signs Date Time Temp Pulse Resp B/P Pulse Ox O2 Delivery O2 Flow Rate FiO2 10/04/16 16:00 95.3 65 17 147/66 98 10/04/16 15:05 18 10/04/16 12:00 71 10/04/16 12:00 97.2 69 16 91/44 96 10/04/16 08:00 98.1 75 15 155/83 100 10/04/16 08:00 78 10/04/16 04:00 69 10/04/16 04:00 98.5 69 12 128/60 95 10/04/16 00:00 65 10/04/16 00:00 98.1 65 28 141/63 100 10/03/16 20:22 100 4.00 10/03/16 20:00 97.9 56 21 146/63 100 10/03/16 20:00 58 10/03/16 19:00 52 17 112/54 99 Nasal Cannula 3 10/03/16 18:45 57 17 82/39 99 Nasal Cannula 3 10/03/16 18:35 57 17 91/49 99 Nasal Cannula 3 10/03/16 18:20 55 17 125/57 99 Nasal Cannula 3 10/03/16 18:05 55 17 125/57 99 Nasal Cannula 3 10/03/16 17:50 55 17 128/69 99 Nasal Cannula 3 10/03/16 17:35 76 17 115/56 94 Nasal Cannula 3 10/03/16 17:20 55 17 136/57 94 Nasal Cannula 3 Coded Allergies: Bactrim (Verified Allergy, Severe, Shortness of Breath, 06/06/16) Iodine (Verified Allergy, Severe, THROAT SWELLS, 06/06/16) pt states does not have a allergy to Iodine 01/11/16 JF Penicillin (Verified Allergy, Severe, STOPPED BREATHING, 06/06/16) Shellfish (Verified Allergy, Severe, THROAT SWELLS, 06/06/16) *MDRO Multi-Drug Resistant Organism (Verified Adverse Reaction, Unknown, ) 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 If surgery fails patient will likely require a BKA. -plan for dressing change at bedside tomorrow -cont iv abx -pain medication frequency increased 2)left fibula fracture -xrays pending -WBAT in Nata Christensen DPM Oct 04, 2016 17:09
[2016-10-04 20:00] VITALS: BP 122/55; PULSE 69; PULSE 72; RESP 20; TEMP 99.1; O2SAT 96
--- NOTE | 2016-10-04 20:25 | RADRPT ---
EXAM DATE/TIME: 10/04/2016 18:40 [place] COMPARISON: No previous studies available for comparison. INDICATIONS : Pain. MEDICAL HISTORY : None. SURGICAL HISTORY : None. ENCOUNTER: Initial ACUITY: 4 - 6 days PAIN SCORE: 5/10 LOCATION: Left ankle. FINDINGS: A fracture is identified through the distal left fibula. There is overlying soft tissue swelling. The distal tibia is intact. Ankle joint is well aligned. CONCLUSION: Fracture distal left tibia which appears acute to subacute in nature. Roldan Graves MD on October 04, 2016 at 20:21 Board Certified Radiologist. This report was verified electronically.
[2016-10-04] MEDS: MONTELUKAST SODIUM 10 MG TAB PO SCH (21:00)
[2016-10-04] MEDS: ATORVASTATIN 40 MG TAB PO SCH (21:01)
[2016-10-04] MEDS: METOPROLOL TARTRATE 25 MG TAB PO SCH (22:35)
[2016-10-05] VITALS (7 sets, daily range): BP systolic 106–177; BP diastolic 54–81; PULSE 51–89; RESP 17–20; TEMP 96.6–99.1; O2SAT 93–99
[2016-10-05] MEDS: AZTREONAM INJ 1,000 MG in SODIUM CHLORIDE 0.9% INJ 100 ML IV SCH ×2 (00:37→07:55)
[2016-10-05] MEDS: MORPHINE SULFATE 4 MG/ML INJ IV PUSH PRN ×5 (03:50→21:28)
[2016-10-05] MEDS: INSULIN ASPART SUPPLEMENTAL SCALE SQ SCH ×4 (05:11→21:20)
[2016-10-05] MEDS: ISOSORBIDE MONONITRATE 30 MG TAB PO SCH (05:17)
[2016-10-05] MEDS: GABAPENTIN 300 MG CAP PO SCH ×3 (05:17→17:28)
[2016-10-05] MEDS: METOPROLOL TARTRATE 25 MG TAB PO SCH ×2 (07:53→21:00)
[2016-10-05] MEDS: AMIODARONE 200 MG TAB PO SCH (07:53)
[2016-10-05] MEDS: DULoxetine HCl DR 30 MG CAP PO SCH (07:53)
[2016-10-05] MEDS: ASPIRIN 81 MG CHEW TAB CHEW SCH (07:53)
[2016-10-05] MEDS: SODIUM CHLORIDE 0.9% FLUSH 5 ML FLUSH FLUSH SCH ×2 (07:54→21:18)
--- NOTE | 2016-10-05 10:52 | HHI.PR ---
Subjective Remarks Follow-up for osteomyelitis, hypertension No headache, pain is still bad, about 9/10 right foot, also with pain left ankle. No fever or chills. Not short of breath. Objective Vitals Vital Signs Date Time Temp Pulse Resp B/P Pulse Ox O2 Delivery O2 Flow Rate FiO2 10/05/16 08:00 98.4 89 17 177/81 94 10/05/16 06:57 99.0 77 20 120/77 96 10/05/16 00:00 99.1 66 20 133/56 93 10/04/16 20:00 99.1 69 20 122/55 96 10/04/16 20:00 72 10/04/16 16:00 95.3 65 17 147/66 98 10/04/16 15:05 18 10/04/16 12:00 71 10/04/16 12:00 97.2 69 16 91/44 96 I/O 10/04/16 10/04/16 10/04/16 10/05/16 10/05/16 10/05/16 07:00 15:00 23:00 07:00 15:00 23:00 Intake Total 210 ml 790 ml 1060 ml 240 ml Output Total 900 ml 750 ml 1000 ml 1300 ml Balance -690 ml 40 ml 60 ml -1060 ml Intake Oral 640 ml 960 ml 240 ml IV Total 210 ml 150 ml 100 ml 0 ml Output Urine Total 900 ml 750 ml 1000 ml 1300 ml Stool Total 0 ml Result Diagram: 10/04/16 0603 10/04/16 0603 Objective Remarks GENERAL: Well-nourished, well-developed female patient in [facility]. SKIN: Warm and dry. HEENT: Normocephalic. Atraumatic. Pupils equal and round. No scleral icterus. NECK: Supple. Trachea midline. CARDIOVASCULAR: Regular rate and rhythm. S1, S2 noted. No murmur appreciated. Not tachycardic. RESPIRATORY: No accessory muscle use. Clear to auscultation. Breath sounds equal bilaterally. Poor effort. GASTROINTESTINAL: Abdomen soft, non-tender, nondistended. Normoactive bowel sounds x4. MUSCULOSKELETAL: Right foot, status post toe amputations, dressings and drain in place, mild left ankle tenderness.. NEUROLOGICAL: Alert awake and oriented 3, no focal deficits. A/P Problem List: (1) Osteomyelitis of right foot ICD Code: M86.9 Status: Acute (2) Foot ulcer, left ICD Code: L97.529 Status: Acute (3) HTN (hypertension) ICD Code: I10 Status: Chronic (4) DM (diabetes mellitus) ICD Code: E11.9 Status: Chronic (5) A-fib ICD Code: I48.91 Status: Chronic Assessment and Plan 60-year-old female with a history of hypertension, diabetes, CAD, COPD and lupus presented with: Osteomyelitis of the right foot - Right foot MRI shows discrete fluid collections identified in the mid and forefoot which may represent abscess collections; Abnormal signal intensity with bone marrow edema and destructive cortical changes are identified in the first and third metatarsal which may represent osteomyelitis; Changes in the third metatarsal associated with a fistulous tract extending to the plantar surface. -Doppler ultrasound negative for DVT. Status post amputation, there is also necrotic bone. Recommendation is to 4 weeks of antibiotics per podiatry. Continue vancomycin and is urinating , blood cultures negative to date. Wound culture growing MRSA. Infectious disease following, awaiting final input. Will need PICC line. Hypotension- resolved, could be post anesthesia. CBC, BMP and lactic acid were fine. Off Marquise-Synephrine. Left ankle [id number] revealed left distal tibia fracture, consult orthopedics, continue pain control Diabetes with neuropathy, chronic, Hgb A1c 6.9 on 12/12/15, restart patient's home insulin, gabapentin. Accu-Cheks with sliding scale Hypertension, chronic -Monitor vitals, blood pressure better, continue Imdur and metoprolol, continue to hold lisinopril. A. fib, chronic -Continue home medications amiodarone -Monitor on telemetry HLD, chronic -continue patient's statin Likely chronic kidney disease-creatinine stable, continue to monitor creatinine on vancomycin. DVT prophylaxis: SCDs, chemical prophylaxis to be determined after surgery Discharge Planning Discharged with home health care versus SNF and will need IV antibiotics as outpatient. Maru Barkley MD Oct 05, 2016 10:52
--- NOTE | 2016-10-05 10:53 | HHI.FF ---
Face to Face Verification Diagnosis: (1) Osteomyelitis of right foot (2) Diabetes mellitus Physical Therapy Order: Evaluate and Treat I have seen patient Zahra Finnegan on 10/05/16. My clinical findings support the need for the requested home health care services because: Ltd mobility - disease progression Limited ability to care for self I certify that my clinical findings support that this patient is homebound because: Post-op weakness Unsteady gait/balance Maru Barkley MD Oct 05, 2016 10:53
--- NOTE | 2016-10-05 11:39 | PD.POD ---
Subjective Podiatric Problems s/p right foot aggressive TMA 10/03/16. Patient believes she sustained her ankle fracture 1 month ago, but does not remember how. She was given a CAM boot by at that time, as he did not feel she was a surgical candidate given her bilateral diabetic ulcerations and neuropathy. Patient states that her pain is 10/10, but appears to in no distress and easily carries on conversation during bandage change. She denies any n/v/f/h/c/sob. Pain score: 10 Past Med/Surg/Social History Social History Smoking Status: Former Smoker Objective Vital Signs Vital Signs Date Time Temp Pulse Resp B/P Pulse Ox O2 Delivery O2 Flow Rate FiO2 10/05/16 08:00 98.4 89 17 177/81 94 10/05/16 06:57 99.0 77 20 120/77 96 10/05/16 00:00 99.1 66 20 133/56 93 10/04/16 20:00 99.1 69 20 122/55 96 10/04/16 20:00 72 10/04/16 16:00 95.3 65 17 147/66 98 10/04/16 15:05 18 10/04/16 12:00 71 10/04/16 12:00 97.2 69 16 91/44 96 Coded Allergies: Bactrim (Verified Allergy, Severe, Shortness of Breath, 06/06/16) Iodine (Verified Allergy, Severe, THROAT SWELLS, 06/06/16) pt states does not have a allergy to Iodine 01/11/16 JF Penicillin (Verified Allergy, Severe, STOPPED BREATHING, 06/06/16) Shellfish (Verified Allergy, Severe, THROAT SWELLS, 06/06/16) *MDRO Multi-Drug Resistant Organism (Verified Adverse Reaction, Unknown, ) 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 (foot)-10/02/16 Exam-Podiatry Remarks Derm: left plantar hallux ulcer 1cm x 1cm x 0.25cm, mostly fibrotic base, no drainage, no malodor, mercedes wound masceration right foot incision sites x 2 are well coapted with all sutures intact , no edema, minimal erythema, +masceration, signs of early ischemia to central distal incision Bio: No pain or swelling to left ankle, ROM WNL Right foot TMA Neuro and Vasc: unchanged Assessment & Plan A/P 1) s/p right TMA 10/03 -Next dressing change planned for Friday to -Nursing staff instructed on daily dressing for LLE -on bed rest until bring in CAM boot, then WBAT to LLE in CAM and NWBing RLE -PICC line pending -cont iv abx -pain medication ordered for break through pain 2)left fibula fracture -WBAT in CAM -Not a surgical candidate at this time given current infection state, WBing status, and neuropathy Nata Spaulding DPM Oct 05, 2016 11:39
[2016-10-05] MEDS ORDERED: PHARMACY ORDERED LAB XX ONE (13:45)
[2016-10-05] MEDS: ACETAMINOPHEN/HYDROcodone 325 MG/7.5 MG TAB PO PRN (14:54)
[2016-10-05] MEDS: VANCOMYCIN INJ 1,500 MG in SODIUM CHLORID 0.9% 500 ML INJ 500 ML IV SCH (14:55)
[2016-10-05] MEDS: SODIUM CHLORIDE 0.9% FLUSH 5 ML FLUSH FLUSH PRN ×2 (14:55→17:28)
[2016-10-05] MEDS: ATORVASTATIN 40 MG TAB PO SCH (21:18)
[2016-10-05] MEDS: MONTELUKAST SODIUM 10 MG TAB PO SCH (21:19)
[2016-10-06] VITALS (8 sets, daily range): BP systolic 99–205; BP diastolic 8–90; PULSE 20–84; RESP 16–18; TEMP 97.1–98.4; O2SAT 93–99
[2016-10-06] MEDS: GABAPENTIN 300 MG CAP PO SCH ×5 (00:58→22:45)
[2016-10-06] MEDS: MORPHINE SULFATE 4 MG/ML INJ IV PUSH PRN ×8 (01:51→22:44)
[2016-10-06] MEDS: ISOSORBIDE MONONITRATE 30 MG TAB PO SCH (05:28)
[2016-10-06] MEDS: INSULIN ASPART SUPPLEMENTAL SCALE SQ SCH ×4 (05:57→21:00)
[2016-10-06] MEDS ORDERED: VANCOMYCIN INJ 1,500 MG in SODIUM CHLORID 0.9% 500 ML INJ 500 ML IV SCH (08:00)
[2016-10-06] MEDS: ASPIRIN 81 MG CHEW TAB CHEW SCH (08:16)
[2016-10-06] MEDS: ACETAMINOPHEN/HYDROcodone 325 MG/7.5 MG TAB PO PRN (08:16)
[2016-10-06] MEDS: DULoxetine HCl DR 30 MG CAP PO SCH (08:16)
[2016-10-06] MEDS: AMIODARONE 200 MG TAB PO SCH (08:16)
[2016-10-06] MEDS: METOPROLOL TARTRATE 25 MG TAB PO SCH ×2 (08:16→20:00)
[2016-10-06] MEDS: SODIUM CHLORIDE 0.9% FLUSH 5 ML FLUSH FLUSH SCH ×2 (08:18→22:45)
[2016-10-06] MEDS ORDERED: GETGO ROLLING W1 MI1 (11:18)
--- NOTE | 2016-10-06 11:22 | HHI.PR ---
Subjective Remarks Follow for osteomyelitis Pain is more controlled with oral narcotics, no shortness of breath, blood pressure is elevated, denies any headache, chest pain, nausea, vomiting or neurologic deficits. Objective Vitals Vital Signs Date Time Temp Pulse Resp B/P Pulse Ox O2 Delivery O2 Flow Rate FiO2 10/06/16 09:15 97.9 84 17 190/80 96 10/06/16 08:00 97.6 82 17 201/90 97 205/86 10/06/16 06:00 18 10/06/16 04:00 98.4 71 18 135/57 93 10/06/16 00:00 97.9 20 18 124/54 99 10/05/16 20:00 96.8 51 18 116/56 98 10/05/16 19:45 51 10/05/16 16:00 97.5 56 17 106/54 99 10/05/16 12:00 96.6 63 17 109/55 98 I/O 10/05/16 10/05/16 10/05/16 10/06/16 10/06/16 10/06/16 07:00 15:00 23:00 07:00 15:00 23:00 Intake Total 240 ml 360 ml 120 ml 0 ml Output Total 1300 ml 700 ml 450 ml 1650 ml Balance -1060 ml -340 ml -330 ml -1650 ml Intake Oral 240 ml 360 ml 120 ml 0 ml IV Total 0 ml 0 ml 0 ml Output Urine Total 1300 ml 700 ml 450 ml 1650 ml # Bowel Movements 0 1 Result Diagram: 10/04/16 0603 10/04/16 0603 Objective Remarks GENERAL: Well-nourished, well-developed female patient in [facility]. SKIN: Warm and dry. HEENT: Normocephalic. Atraumatic. Pupils equal and round. No scleral icterus. NECK: Supple. Trachea midline. CARDIOVASCULAR: Regular rate and rhythm. S1, S2 noted. No murmur appreciated. Not tachycardic. RESPIRATORY: No accessory muscle use. Clear to auscultation. Breath sounds equal bilaterally. Poor effort. GASTROINTESTINAL: Abdomen soft, non-tender, nondistended. Normoactive bowel sounds x4. MUSCULOSKELETAL: Right foot, status post toe amputations, dressings and which in place, mild left ankle tenderness.. NEUROLOGICAL: Alert awake and oriented 3, no focal deficits. A/P Problem List: (1) Osteomyelitis of right foot ICD Code: M86.9 Status: Acute (2) Foot ulcer, left ICD Code: L97.529 Status: Acute (3) HTN (hypertension) ICD Code: I10 Status: Chronic (4) DM (diabetes mellitus) ICD Code: E11.9 Status: Chronic (5) A-fib ICD Code: I48.91 Status: Chronic Assessment and Plan 60-year-old female with a history of hypertension, diabetes, CAD, COPD and lupus presented with: Osteomyelitis of the right foot - Right foot MRI shows discrete fluid collections identified in the mid and forefoot which may represent abscess collections; Abnormal signal intensity with bone marrow edema and destructive cortical changes are identified in the first and third metatarsal which may represent osteomyelitis; Changes in the third metatarsal associated with a fistulous tract extending to the plantar surface. -Doppler ultrasound negative for DVT. Status post amputation, there is also necrotic bone. Recommendation is to 4 weeks of antibiotics per podiatry. Continue vancomycin and is urinating , blood cultures negative to date. Wound culture growing MRSA. Discussed with Dr. Conner, patient is going home with home health care. For PICC line placement. Change dressing tomorrow and possibly discharge home with home health care, WBAT to LLE in CAM boots. Nonweightbearing in the right lower extremities. Hypotension- resolved, could be post anesthesia. CBC, BMP and lactic acid were fine. Off Marquise-Synephrine. Left ankle [id number] revealed left distal tibia fracture, podiatry managing. Diabetes with neuropathy, chronic, Hgb A1c 6.9 on 12/12/15, restart patient's home insulin, gabapentin. Accu-Cheks with sliding scale Hypertension, chronic -Monitor vitals, blood pressure better, continue Imdur and metoprolol, restart losartan, increase dose as needed. Vasotec as needed. A. fib, chronic -Continue home medications amiodarone -Monitor on telemetry HLD, chronic -continue patient's statin Likely chronic kidney disease-creatinine stable, continue to monitor creatinine on vancomycin. DVT prophylaxis: SCDs, chemical prophylaxis to be determined after surgery Discharge Planning Discharged with home health care tomorrow Maru Barkley MD Oct 06, 2016 11:22
[2016-10-06] MEDS ORDERED: ENALAPRILAT 1.25 MG/ML VIAL IV PUSH PRN (11:30)
[2016-10-06] MEDS: SODIUM CHLORIDE 0.9% FLUSH 5 ML FLUSH FLUSH PRN ×3 (12:15→18:22)
--- NOTE | 2016-10-06 14:56 | HHI.FF ---
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 [] May leave port accessed during therapy. [] May leave peripheral site accessed for duration of therapy. [x] If patient has SOB or respiratory distress, check oxygen saturation. If less than 90% or clinical signs of respiratory distress, administer oxygen at 2 L/min. via nasal cannula and notify physician. [x] Anaphylaxis/Reaction orders: * Stop infusion. * Keep IV line open with saline flush. * Notify physician. * Monitor vital signs every 15 minutes until symptoms resolve. * Check Oxygen saturation; Oxygen at 2 L/min. via nasal cannula if less than 90% or clinical signs of respiratory distress. * Administer diphenhydramine (Benadryl) 25 mg IV STAT, (unless patient has received as pre-med). May repeat once, if necessary. * Solu-Cortef 250 mg IVP over 30-60 seconds, use 100 mg vials for each dissolution. * Epinephrine (1mg/1 ml) 0.3 mg subcutaneously or IVP now with any signs of respiratory distress. * Check with physician for new additional pre-med orders if patient is re- challenged or re-treated. [x] May remove PICC line when treatment complete, after confirming with Physician. [x] If the patient is admitted to the hospital, the ED, or transferred via [facility] , complete transfer form including medication reconciliation order sheet. Laboratory Tests Weekly Labs: CBC w/diff, Creatinine, SED Rate, Vancomycin Trough Fiona Conner MD Oct 06, 2016 14:56
[2016-10-06] MEDS: ATORVASTATIN 40 MG TAB PO SCH (20:00)
[2016-10-06] MEDS: MONTELUKAST SODIUM 10 MG TAB PO SCH (20:00)
[2016-10-06] MEDS: VANCOMYCIN INJ 1,250 MG in SODIUM CHLOR 0.9% 250 ML INJ 250 ML IV SCH (22:45)
[2016-10-07] VITALS (7 sets, daily range): BP systolic 108–186; BP diastolic 55–83; PULSE 62–80; RESP 14–20; TEMP 96–98.8; O2SAT 94–99
[2016-10-07] MEDS: MORPHINE SULFATE 4 MG/ML INJ IV PUSH PRN ×8 (02:54→20:28)
[2016-10-07] MEDS: GABAPENTIN 300 MG CAP PO SCH ×3 (05:19→18:00)
[2016-10-07] MEDS: INSULIN ASPART SUPPLEMENTAL SCALE SQ SCH ×4 (06:48→21:54)
[2016-10-07] MEDS: ISOSORBIDE MONONITRATE 30 MG TAB PO SCH (06:48)
[2016-10-07] MEDS: VANCOMYCIN INJ 1,250 MG in SODIUM CHLOR 0.9% 250 ML INJ 250 ML IV SCH ×2 (08:18→20:28)
[2016-10-07] MEDS: AMIODARONE 200 MG TAB PO SCH (08:19)
[2016-10-07] MEDS: SODIUM CHLORIDE 0.9% FLUSH 5 ML FLUSH FLUSH SCH ×2 (08:19→20:29)
[2016-10-07] MEDS: ASPIRIN 81 MG CHEW TAB CHEW SCH (08:19)
[2016-10-07] MEDS: METOPROLOL TARTRATE 25 MG TAB PO SCH ×2 (08:19→20:28)
[2016-10-07] MEDS: DULoxetine HCl DR 30 MG CAP PO SCH (08:19)
[2016-10-07] MEDS: LOSARTAN 25 MG TAB PO SCH (08:19)
[2016-10-07] MEDS ORDERED: WHEEMIS3 (10:49)
--- NOTE | 2016-10-07 13:34 | HHI.DS ---
Discharge Summary Admission Date Oct 02, 2016 at 19:45 Discharge Date: Oct 07, 2016 Admitting Diagnosis cellulitis (1) Osteomyelitis of right foot ICD Code: M86.9 Diagnosis: Principal (2) Foot ulcer, left ICD Code: L97.529 Diagnosis: Secondary (3) HTN (hypertension) ICD Code: I10 Diagnosis: Secondary (4) DM (diabetes mellitus) ICD Code: E11.9 Diagnosis: Secondary (5) A-fib ICD Code: I48.91 Diagnosis: Secondary Procedures Amputation. Brief History - From Admission 60 y/o female with a history of lupus, htn, CAD, asthma, dylipidemia presented to the ED from Dr. Ruiz's office for evaluation and possible amputation of right foot. Patient states she has been dealing with the foot infection since December of 2015, and when she has been treated multiple times with antibiotics. Over the last 2 weeks she has been having increased pain and swelling of the planter side of right foot. She went to see Dr. Ruiz today and she stated he took xrays and suggested she come to the hospital for an MRI and possible amputation. She complains of increase throbbing pain to right 3rd digit that radiates to her calf, this has made walking very difficult for her. She denies any fever, chill, chest pain or shortness of breath. Dr. Spaulding has seen the patient and surgery is planned for 10am. She also complains of an ulcer to her planter surface of left great toe, she states she undergoes home health care twice a week for dressing changes. CBC/BMP: 10/04/16 0603 10/07/16 0533 Significant Findings Laboratory Tests Test 10/07/16 05:33 Estimat Glomerular Filtration 61 ML/MIN (>89) Rate PE at Discharge GENERAL: Well-nourished, well-developed female patient in [facility]. SKIN: Warm and dry. HEENT: Normocephalic. Atraumatic. Pupils equal and round. No scleral icterus. NECK: Supple. Trachea midline. CARDIOVASCULAR: Regular rate and rhythm. S1, S2 noted. No murmur appreciated. Not tachycardic. RESPIRATORY: No accessory muscle use. Clear to auscultation. Breath sounds equal bilaterally. Poor effort. GASTROINTESTINAL: Abdomen soft, non-tender, nondistended. Normoactive bowel sounds x4. MUSCULOSKELETAL: Right foot, status post toe amputations, dressings and which in place, mild left ankle tenderness.. NEUROLOGICAL: Alert awake and oriented 3, no focal deficits. Pt update on day of discharge Pain is controlled, no overnight events, no nausea or vomiting. Afebrile. Hospital Course This is a 60-year-old female with a history of hypertension, diabetes, CAD, COPD and lupus presented with right foot pain. Right foot MRI shows discrete fluid collections identified in the mid and forefoot which may represent abscess collections; Abnormal signal intensity with bone marrow edema and destructive cortical changes are identified in the first and third metatarsal which may represent osteomyelitis, changes in the third metatarsal associated with a fistulous tract extending to the plantar surface.Doppler ultrasound negative for DVT. Podiatry was consulted. went for amputation, there is also necrotic bone found intraoperatively. Patient was started and continued on vancomycin and Unasyn, blood cultures negative to date. Wound culture gre MRSA. Per podiatry WBAT to LLE in CAM boots. Nonweightbearing in the right lower extremities. Once biopsy was back, infectious disease recommended vancomycin as outpatient every 12 hours until 12/02/16. Hospital course was complicated with hypotension after surgery which resolved with volume resuscitation and a few hours on Marquise-Synephrine. She also had left ankle fracture from prior to admission which was managed by podiatry conservatively. Patient was discharged with home health care for IV infusion. Pt Condition on Discharge: Good Discharge Disposition: Disch w/ Home Health Serv Discharge Time: > 30 minutes Discharge Instructions Follow up Referrals: SNF/VINH/HH with [facility] New Medications: Losartan (Losartan) 50 Mg Tab 50 MG PO DAILY Blood Pressure Management #30 Ref 0 TAB Walker Rolling/GetGo (Walker Rolling/GetGo) 1 Mis Mis 1 EA .ROUTE DIRECTED #1 EA Wheelchair (Wheelchair) 1 Mis Mis 1 EA .ROUTE DIRECTED #1 Ref 0 EA Continued Medications: Amiodarone (Amiodarone) 200 Mg Tab 200 MG PO DAILY Regulate Heart Beat #30 Ref 0 TAB Aspirin (Aspirin) 81 Mg Chew 81 MG CHEW DAILY Ref 0 TAB Atorvastatin (Lipitor) 40 Mg Tab 40 MG PO HS Cholesterol Management #30 Ref 0 TAB Cholecalciferol (Vitamin D) 5,000 Unit Tab 5000 UNITS PO DAILY Duloxetine DR (Duloxetine DR) 30 Mg Capdr 30 MG PO DAILY #30 Ref 0 CAP Gabapentin (Gabapentin) 300 Mg Cap 300 MG PO Q6HR #60 Ref 0 CAP Insulin Human Isophane-Regular 70-30 Inj (Novolin 70-30 Inj) 1,000 Unit/10 Ml Vial 30 UNITS SQ BID Blood Sugar Management Ref 0 ML Insulin Human Regular Inj (Novolin R Inj) 1,000 Unit/10 Ml Vial Unknown Dose SQ ACHS Sliding Scale As Directed. Blood Sugar Management #10 Ref 0 ML Isosorbide Mononitrate ER (Isosorbide Mononitrate ER) 30 Mg Shonda 30 MG PO DAILY Prevent Chest Pain #30 Ref 0 TAB Metoprolol Tartrate (Metoprolol Tartrate) 25 Mg Tab 25 MG PO BID HTN Days 30 TAB Montelukast (Montelukast) 10 Mg Tab 10 MG PO HS #30 Ref 0 TAB Tizanidine (Tizanidine) 4 Mg Cap 4 MG PO TID Muscle Spasm Ref 0 CAP Discontinued Medications: Losartan (Losartan) 25 Mg Tab 25 MG PO DAILY Blood Pressure Management #30 Ref 0 TAB Oxycodone-Acetaminophen (Oxycodone-Acetaminophen) 10-325 mg Tab 1 TAB PO QID PRN PAIN Ref 0 TAB Maru Barkley MD Oct 07, 2016 13:34
--- NOTE | 2016-10-07 13:34 | HHI.PR ---
Subjective Remarks Follow for osteomyelitis Pain is controlled, blood pressure is better but still quite elevated, denies any headache. No diarrhea. Objective Vitals Vital Signs Date Time Temp Pulse Resp B/P Pulse Ox O2 Delivery O2 Flow Rate FiO2 10/07/16 12:26 20 10/07/16 12:00 96.0 62 20 108/55 95 10/07/16 11:18 20 10/07/16 08:00 96.4 80 14 186/83 94 10/07/16 04:00 98.8 79 18 134/58 95 10/07/16 02:40 98.3 64 20 156/64 99 10/06/16 20:35 97.6 63 18 162/8 95 10/06/16 20:00 62 10/06/16 16:00 97.1 58 16 99/52 97 I/O 10/06/16 10/06/16 10/06/16 10/07/16 10/07/16 10/07/16 07:00 15:00 23:00 07:00 15:00 23:00 Intake Total 0 ml 740 ml 250 ml 490 ml Output Total 1650 ml 850 ml 500 ml 1250 ml Balance -1650 ml -110 ml -250 ml -760 ml Intake Oral 0 ml 240 ml 250 ml 240 ml IV Total 0 ml 500 ml 250 ml Output Urine Total 1650 ml 850 ml 500 ml 1250 ml # Bowel Movements 0 Result Diagram: 10/04/16 0603 10/07/16 0533 Objective Remarks GENERAL: Well-nourished, well-developed female patient in [facility]. SKIN: Warm and dry. HEENT: Normocephalic. Atraumatic. Pupils equal and round. No scleral icterus. NECK: Supple. Trachea midline. CARDIOVASCULAR: Regular rate and rhythm. S1, S2 noted. No murmur appreciated. Not tachycardic. RESPIRATORY: No accessory muscle use. Clear to auscultation. Breath sounds equal bilaterally. Poor effort. GASTROINTESTINAL: Abdomen soft, non-tender, nondistended. Normoactive bowel sounds x4. MUSCULOSKELETAL: Right foot, status post toe amputations, dressings and which in place, mild left ankle tenderness.. NEUROLOGICAL: Alert awake and oriented 3, no focal deficits. A/P Problem List: (1) Osteomyelitis of right foot ICD Code: M86.9 Status: Acute (2) Foot ulcer, left ICD Code: L97.529 Status: Acute (3) HTN (hypertension) ICD Code: I10 Status: Chronic (4) DM (diabetes mellitus) ICD Code: E11.9 Status: Chronic (5) A-fib ICD Code: I48.91 Status: Chronic Assessment and Plan 60-year-old female with a history of hypertension, diabetes, CAD, COPD and lupus presented with: Osteomyelitis of the right foot - Right foot MRI shows discrete fluid collections identified in the mid and forefoot which may represent abscess collections; Abnormal signal intensity with bone marrow edema and destructive cortical changes are identified in the first and third metatarsal which may represent osteomyelitis; Changes in the third metatarsal associated with a fistulous tract extending to the plantar surface. -Doppler ultrasound negative for DVT. Status post amputation, there is also necrotic bone. Recommendation is to 4 weeks of antibiotics per podiatry. Continue vancomycin and Unasyn, blood cultures negative to date. Wound culture growing MRSA. Discussed with Dr. Conner, patient is going home with home health care.s/p PICC line placement. WBAT to LLE in CAM boots. Nonweightbearing in the right lower extremities. Awaiting final recs from ID contingent on bone biopsy. Hypotension- resolved, could be post anesthesia. Resolved. CBC, BMP and lactic acid were fine. Off Marquise-Synephrine. Left ankle cjrdltpr-g-gju revealed left distal tibia fracture, podiatry managing. Diabetes with neuropathy, chronic, Hgb A1c 6.9 on 12/12/15, restart patient's home insulin, gabapentin. Accu-Cheks with sliding scale Hypertension, chronic -Monitor vitals, blood pressure better, continue Imdur and metoprolol, increase losartan. Vasotec as needed. A. fib, chronic -Continue home medications amiodarone -Monitor on telemetry HLD, chronic -continue patient's statin Likely chronic kidney disease-creatinine stable, continue to monitor creatinine on vancomycin. DVT prophylaxis: SCDs Discharge Planning Discharged with home health care once final antibiotic regimen established by ID , this is contingent to the pathology report. Maru Barkley MD Oct 07, 2016 13:33
[2016-10-07] MEDS ORDERED: LOSA50TA PO (13:37)
[2016-10-07] MEDS ORDERED: HYDR-3580 PO (13:37)
[2016-10-07] MEDS ORDERED: LOSARTAN 25 MG TAB PO ONE (13:45)
--- NOTE | 2016-10-07 14:22 | RADRPT ---
EXAM DATE/TIME: 10/07/2016 13:53 [place] COMPARISON: CHEST SINGLE AP, October 02, 2016, 16:49. INDICATIONS : Status post PICC line placement. MEDICAL HISTORY : Diabetes mellitus type II. Lupus. Hypertension. Myeloproliferative disorder. SURGICAL HISTORY : Cholecystectomy. Hysterectomy. Mastectomy, bilateral. Tonsillectomy, Amputations on right foot. ENCOUNTER: Initial ACUITY: 4 - 6 days PAIN SCORE: 8/10 LOCATION: chest FINDINGS: Portable AP view of the chest demonstrates a normal-sized cardiac silhouette in this patient post med clarita sternotomy and CABG. Right upper extremity PICC is present with distal tip near the cavoatrial ju nction. There is atelectasis at the left lung base. No effusion or pneumothorax is seen. CONCLUSION: Right upper extremity PICC in appropriate position with distal tip near the cavoatrial junction. Femi Barron MD on October 07, 2016 at 14:20 Board Certified Radiologist. This report was verified electronically.
--- NOTE | 2016-10-07 14:24 | HHI.IDPN ---
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 Vital Signs Date Time Temp Pulse Resp B/P Pulse Ox O2 Delivery O2 Flow Rate FiO2 10/07/16 12:26 20 10/07/16 12:00 96.0 62 20 108/55 95 10/07/16 11:18 20 10/07/16 08:00 96.4 80 14 186/83 94 10/07/16 04:00 98.8 79 18 134/58 95 10/07/16 02:40 98.3 64 20 156/64 99 10/06/16 20:35 97.6 63 18 162/8 95 10/06/16 20:00 62 10/06/16 16:00 97.1 58 16 99/52 97 10/06/16 10/06/16 10/07/16 15:00 23:00 07:00 Intake Total 740 ml 250 ml 490 ml Output Total 850 ml 500 ml 1250 ml Balance -110 ml -250 ml -760 ml Intake Oral 240 ml 250 ml 240 ml IV Total 500 ml 250 ml Output Urine Total 850 ml 500 ml 1250 ml # Bowel Movements 0 . Laboratory Tests Test 10/07/16 05:33 Creatinine 0.94 MG/DL Estimat Glomerular Filtration 61 ML/MIN Rate Imaging Last Impressions Ankle X-Ray 10/04/16 0000 Signed Impressions: Service Date/Time: Tuesday, October 04, 2016 18:40 - CONCLUSION: Fracture distal left tibia which appears acute to subacute in nature. Roldan Graves MD Foot X-Ray 10/03/16 0000 Signed Impressions: Service Date/Time: October 12:25 - CONCLUSION: Status post mid foot amputation as described above. Saran Kenyon MD Chest X-Ray 10/02/16 1625 Signed Impressions: Service Date/Time: Sunday, October 02, 2016 16:49 - CONCLUSION: Compensated cardiomegaly, negative for an acute infiltrate or failure. Sean Lawler MD FACR Lower Extremity Ultrasound 10/02/16 0000 Signed Impressions: Service Date/Time: Sunday, October 02, 2016 23:26 - CONCLUSION: 1. Negative for deep venous thrombosis. 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 Right inguinal lymph nodes mildly enlarged. Abdullahi Yu MD Foot MRI 10/02/16 0000 Signed Impressions: Service Date/Time: Sunday, October 02, 2016 20:29 - CONCLUSION: 3 discrete fluid collections are identified in the mid and forefoot which may or present abscess collections. Abnormal signal intensity with bone marrow edema and destructive cortical changes are identified in the first and third metatarsal which may represent osteomyelitis. Changes in the third metatarsal associated with a fistulous tract extending to the plantar surface. The second and fifth metatarsals and toes have been amputated. No evidence of acute or chronic inflammatory changes involving the hindfoot. Roldan Graves MD Physical Exam CONSTITUTIONAL/GENERAL: This is an adequately nourished patient, in no apparent distress. TUBES/LINES/DRAINS: RUE PICC in place SKIN: No jaundice, rashes, or lesions. Ecchymoses on upper extremities. No wounds seen anteriorly. Skin temperature appropriate. Not diaphoretic. EYES: No scleral icterus. ENT:moist mucosae RESPIRATORY/CHEST: Symmetric, unlabored respirations. NEUROLOGICAL: Awake and alert. Non focal MUSCULOSKELETAL: Extremities without clubbing, cyanosis, RLE edema, erythema resolved surg dressing in place, intact Assessment & Plan Remarks MRSA DFI, osteo R foot sp TMA in the settings of PVD - path P ? UTI Multiple med prob HIgh grade PCN allergy (anaphylaxis) - cont vancomycin at least 6 wks from sx - keep trough 15-20 - longer course if margins in bone path + or if ESR persistently high - fu c Dr Khanna -OK to dc OPAT feeled out dw case mngr dw Fiona Galvez MD Oct 07, 2016 14:24
[2016-10-07] MEDS ORDERED: PHARMACY ORDERED LAB XX ONE (19:45)
[2016-10-07] MEDS: MONTELUKAST SODIUM 10 MG TAB PO SCH (20:27)
[2016-10-07] MEDS: ATORVASTATIN 40 MG TAB PO SCH (20:28)
[2016-10-08] VITALS (7 sets, daily range): BP systolic 93–196; BP diastolic 53–94; PULSE 62–78; RESP 16–21; TEMP 95.6–97.3; O2SAT 94–98
[2016-10-08] MEDS: MORPHINE SULFATE 4 MG/ML INJ IV PUSH PRN ×7 (00:51→15:54)
[2016-10-08] MEDS: GABAPENTIN 300 MG CAP PO SCH ×3 (00:51→11:31)
[2016-10-08] MEDS: INSULIN ASPART SUPPLEMENTAL SCALE SQ SCH ×2 (05:57→11:54)
[2016-10-08] MEDS: ISOSORBIDE MONONITRATE 30 MG TAB PO SCH (05:58)
[2016-10-08] MEDS: AMIODARONE 200 MG TAB PO SCH (08:03)
[2016-10-08] MEDS: DULoxetine HCl DR 30 MG CAP PO SCH (08:03)
[2016-10-08] MEDS: METOPROLOL TARTRATE 25 MG TAB PO SCH (08:03)
[2016-10-08] MEDS: ASPIRIN 81 MG CHEW TAB CHEW SCH (08:04)
[2016-10-08] MEDS: VANCOMYCIN INJ 1,250 MG in SODIUM CHLOR 0.9% 250 ML INJ 250 ML IV SCH (08:04)
[2016-10-08] MEDS: SODIUM CHLORIDE 0.9% FLUSH 5 ML FLUSH FLUSH SCH (08:06)
[2016-10-08] MEDS ORDERED: LOSARTAN 25 MG TAB PO SCH (09:00)
[2016-10-08] MEDS ORDERED: cloNIDine HCL 0.1 MG TAB PO PRN (10:45)
--- NOTE | 2016-10-08 12:50 | HHI.FF ---
Face to Face Verification Diagnosis: (1) Osteomyelitis of right foot Physical Therapy Order: Evaluate and Treat, Improve ambulation, Strength and gait training Home Health Nursing Order: Medical education Signs/symptoms of disease process Medication education-adverse effect Nursing assessment with vital signs IV medication administration (weekly CBC w/diff, Creatinine, SED Rate, Vancomycin Trough and PICC line care) I have seen patient Zahra Finnegan on 10/08/16. My clinical findings support the need for the requested home health care services because: Ltd mobility - disease progression I certify that my clinical findings support that this patient is homebound because: Post-op weakness Clinton Potter MD Oct 08, 2016 12:50
--- NOTE | 2016-10-08 14:29 | HHI.PR ---
Subjective Remarks Follow-up hypertension and osteomyelitis. States her BP usually runs in the 90s denies headache or dizziness. Still having foot pain Lortab does not help. States she has Percocet 10/325 at home which is a stronger medicine for her. Discussed with RN and case management, medically stable for discharge Objective Vitals Vital Signs Date Time Temp Pulse Resp B/P Pulse Ox O2 Delivery O2 Flow Rate FiO2 10/08/16 12:00 95.6 63 16 95/56 95 10/08/16 10:27 93/53 10/08/16 10:10 20 10/08/16 09:00 18 10/08/16 08:00 97.3 77 18 196/94 97 10/08/16 06:00 146/86 10/08/16 04:00 96.7 75 20 183/81 94 10/08/16 00:00 96.6 78 21 156/70 97 10/07/16 20:14 68 10/07/16 20:00 96.9 71 20 163/71 94 10/07/16 16:00 96.3 64 14 117/58 98 I/O 10/07/16 10/07/16 10/07/16 10/08/16 10/08/16 10/08/16 07:00 15:00 23:00 07:00 15:00 23:00 Intake Total 490 ml 990 ml 490 ml 240 ml Output Total 1250 ml 1100 ml 800 ml 2300 ml Balance -760 ml -110 ml -310 ml -2060 ml Intake Oral 240 ml 840 ml 240 ml 240 ml IV Total 250 ml 150 ml 250 ml 0 ml Output Urine Total 1250 ml 1100 ml 800 ml 2300 ml Stool Total 0 ml # Bowel Movements 0 0 Result Diagram: 10/04/16 0603 10/07/16 0533 Imaging Last Impressions Chest X-Ray 10/07/16 0000 Signed Impressions: Service Date/Time: Friday, October 07, 2016 13:53 - CONCLUSION: Right upper extremity PICC in appropriate position with distal tip near the cavoatrial junction. Femi Barron MD Ankle X-Ray 10/04/16 0000 Signed Impressions: Service Date/Time: Tuesday, October 04, 2016 18:40 - CONCLUSION: Fracture distal left tibia which appears acute to subacute in nature. Roldan Graves MD Foot X-Ray 10/03/16 Signed Impressions: Service Date/Time: October 12:25 - CONCLUSION: Status post mid foot amputation as described above. Saran Kenyon MD Lower Extremity Ultrasound 10/02/16 0000 Signed Impressions: Service Date/Time: Sunday, October 02, 2016 23:26 - CONCLUSION: 1. Negative for deep venous thrombosis. 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 Right inguinal lymph nodes mildly enlarged. Abdullahi Yu MD Foot MRI 10/02/16 0000 Signed Impressions: Service Date/Time: Sunday, October 02, 2016 20:29 - CONCLUSION: 3 discrete fluid collections are identified in the mid and forefoot which may or present abscess collections. Abnormal signal intensity with bone marrow edema and destructive cortical changes are identified in the first and third metatarsal which may represent osteomyelitis. Changes in the third metatarsal associated with a fistulous tract extending to the plantar surface. The second and fifth metatarsals and toes have been amputated. No evidence of acute or chronic inflammatory changes involving the hindfoot. Roldan Graves MD Objective Remarks GENERAL: Well-nourished, well-developed female patient in [facility]. SKIN: Warm and dry. HEENT: Normocephalic. Atraumatic. Pupils equal and round. No scleral icterus. NECK: Supple. Trachea midline. CARDIOVASCULAR: Regular rate and rhythm. S1, S2 noted. No murmur appreciated. Not tachycardic. RESPIRATORY: No accessory muscle use. Clear to auscultation. Breath sounds equal bilaterally. Poor effort. GASTROINTESTINAL: Abdomen soft, non-tender, nondistended. Normoactive bowel sounds x4. MUSCULOSKELETAL: Right foot, status post toe amputations, dressings and which in place, mild left ankle tenderness.. NEUROLOGICAL: Alert awake and oriented 3, no focal deficits. Procedures PICC 1. Root transmetatarsal amputation 2. Excisional wound debridement and closure. 3. Application of RITA wound Vac dressing A/P Problem List: (1) Osteomyelitis of right foot ICD Code: M86.9 Status: Acute (2) Foot ulcer, left ICD Code: L97.529 Status: Acute (3) HTN (hypertension) ICD Code: I10 Status: Chronic (4) DM (diabetes mellitus) ICD Code: E11.9 Status: Chronic (5) A-fib ICD Code: I48.91 Status: Chronic Assessment and Plan 60-year-old female with a history of hypertension, diabetes, CAD, COPD and lupus presented with: Osteomyelitis of the right foot - Right foot MRI shows discrete fluid collections identified in the mid and forefoot which may represent abscess collections; Abnormal signal intensity with bone marrow edema and destructive cortical changes are identified in the first and third metatarsal which may represent osteomyelitis; Changes in the third metatarsal associated with a fistulous tract extending to the plantar surface. -Doppler ultrasound negative for DVT. Status post amputation, there is also necrotic bone. Recommendation is to 4 weeks of antibiotics per podiatry. Continue vancomycin and Unasyn, blood cultures negative to date. Wound culture growing MRSA. Discussed with Dr. Conner, patient is going home with home health care s/p PICC line placement. WBAT to LLE in CAM boots. Nonweightbearing in the right lower extremities. Discharged when cleared by ID Hypotension- resolved, could be post anesthesia. Resolved. CBC, BMP and lactic acid were fine. Off Marquise-Synephrine. Left ankle mlrrsucw-[id number] revealed left distal tibia fracture, podiatry managing. Diabetes with neuropathy, chronic, Hgb A1c 6.9 on 12/12/15, restart patient's home insulin, gabapentin. Accu-Cheks with sliding scale Hypertension, chronic -Monitor vitals, blood pressure better, continue Imdur and metoprolol, increase losartan. Vasotec as needed. A. fib, chronic -Continue home medications amiodarone and aspirin. Consider anticoagulant patient to follow-up with PCP -Monitor on telemetry HLD, chronic -continue patient's statin Likely chronic kidney disease-creatinine stable, continue to monitor creatinine on vancomycin. DVT prophylaxis: SCDs Discharge Planning Stable for discharge Clinton Potter MD Oct 08, 2016 14:29 (2) Foot ulcer, left ICD Code: L97.529 Status: Acute (3) HTN (hypertension) ICD Code: I10 Status: Chronic (4) DM (diabetes mellitus) ICD Code: E11.9 Status: Chronic (5) A-fib ICD Code: I48.91 Status: Chronic Clinton Potter MD Oct 08, 2016 14:29
[2016-10-08] MEDS ORDERED: oxyCODONE/ACETAMINOPHEN 10 MG/325 MG TAB PO PRN (14:30)
--- NOTE | 2016-10-08 14:42 | HHI.DS ---
Discharge Summary Admission Date Oct 02, 2016 at 19:45 Discharge Date: Oct 08, 2016 Admitting Diagnosis cellulitis (1) Osteomyelitis of right foot ICD Code: M86.9 Diagnosis: Principal (2) Foot ulcer, left ICD Code: L97.529 Diagnosis: Principal (3) HTN (hypertension) ICD Code: I10 Diagnosis: Secondary (4) DM (diabetes mellitus) ICD Code: E11.9 Diagnosis: Secondary (5) A-fib ICD Code: I48.91 Diagnosis: Secondary Procedures PICC 1. Root transmetatarsal amputation 2. Excisional wound debridement and closure. 3. Application of RITA wound Vac dressing Brief History - From Admission 60 y/o female with a history of lupus, htn, CAD, asthma, dylipidemia presented to the ED from Dr. Ruiz's office for evaluation and possible amputation of right foot. Patient states she has been dealing with the foot infection since December of 2015, and when she has been treated multiple times with antibiotics. Over the last 2 weeks she has been having increased pain and swelling of the planter side of right foot. She went to see Dr. Ruiz today and she stated he took xrays and suggested she come to the hospital for an MRI and possible amputation. She complains of increase throbbing pain to right 3rd digit that radiates to her calf, this has made walking very difficult for her. She denies any fever, chill, chest pain or shortness of breath. Dr. Spaulding has seen the patient and surgery is planned for 10am. She also complains of an ulcer to her planter surface of left great toe, she states she undergoes home health care twice a week for dressing changes. CBC/BMP: 10/04/16 0603 10/07/16 0533 Significant Findings Laboratory Tests Test 10/07/16 05:33 Estimat Glomerular Filtration 61 ML/MIN (>89) Rate Imaging Last Impressions Chest X-Ray 10/07/16 0000 Signed Impressions: Service Date/Time: Friday, October 07, 2016 13:53 - CONCLUSION: Right upper extremity PICC in appropriate position with distal tip near the cavoatrial junction. Femi Barron MD Ankle X-Ray 10/04/16 0000 Signed Impressions: Service Date/Time: Tuesday, October 04, 2016 18:40 - CONCLUSION: Fracture distal left tibia which appears acute to subacute in nature. Roldan Graves MD Foot X-Ray 10/03/16 0000 Signed Impressions: Service Date/Time: October 12:25 - CONCLUSION: Status post mid foot amputation as described above. Saran Kenyon MD Lower Extremity Ultrasound 10/02/16 0000 Signed Impressions: Service Date/Time: Sunday, October 02, 2016 23:26 - CONCLUSION: 1. Negative for deep venous thrombosis. 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 Right inguinal lymph nodes mildly enlarged. Abdullahi Yu MD Foot MRI 10/02/16 0000 Signed Impressions: Service Date/Time: Sunday, October 02, 2016 20:29 - CONCLUSION: 3 discrete fluid collections are identified in the mid and forefoot which may or present abscess collections. Abnormal signal intensity with bone marrow edema and destructive cortical changes are identified in the first and third metatarsal which may represent osteomyelitis. Changes in the third metatarsal associated with a fistulous tract extending to the plantar surface. The second and fifth metatarsals and toes have been amputated. No evidence of acute or chronic inflammatory changes involving the hindfoot. Roldan Graves MD PE at Discharge GENERAL: Well-nourished, well-developed female patient in [facility]. SKIN: Warm and dry. HEENT: Normocephalic. Atraumatic. Pupils equal and round. No scleral icterus. NECK: Supple. Trachea midline. CARDIOVASCULAR: Regular rate and rhythm. S1, S2 noted. No murmur appreciated. Not tachycardic. RESPIRATORY: No accessory muscle use. Clear to auscultation. Breath sounds equal bilaterally. Poor effort. GASTROINTESTINAL: Abdomen soft, non-tender, nondistended. Normoactive bowel sounds x4. MUSCULOSKELETAL: Right foot, status post toe amputations, dressings and which in place, mild left ankle tenderness.. NEUROLOGICAL: Alert awake and oriented 3, no focal deficits. Hospital Course 60-year-old female with a history of hypertension, diabetes, CAD, COPD and lupus presented with: Osteomyelitis of the right foot - Right foot MRI shows discrete fluid collections identified in the mid and forefoot which may represent abscess collections; Abnormal signal intensity with bone marrow edema and destructive cortical changes are identified in the first and third metatarsal which may represent osteomyelitis; Changes in the third metatarsal associated with a fistulous tract extending to the plantar surface. -Doppler ultrasound negative for DVT. Status post amputation, there is also necrotic bone. Recommendation is to 4 weeks of antibiotics per podiatry. Continue vancomycin and Unasyn, blood cultures negative to date. Wound culture growing MRSA. Discussed with Dr. Conner, patient is going home with home health care s/p PICC line placement. WBAT to LLE in CAM boots. Nonweightbearing in the right lower extremities. Discharged when cleared by ID Hypotension- resolved, could be post anesthesia. Resolved. CBC, BMP and lactic acid were fine. Off Marquise-Synephrine. Left ankle vqkbhges-c-lqf revealed left distal tibia fracture, podiatry managing. Diabetes with neuropathy, chronic, Hgb A1c 6.9 on 12/12/15, restart patient's home insulin, gabapentin. Accu-Cheks with sliding scale Hypertension, chronic -Monitor vitals, blood pressure better, continue Imdur and metoprolol, increase losartan. Vasotec as needed. A. fib, chronic -Continue home medications amiodarone and aspirin. Consider anticoagulant patient to follow-up with PCP -Monitor on telemetry HLD, chronic -continue patient's statin Likely chronic kidney disease-creatinine stable, continue to monitor creatinine on vancomycin. DVT prophylaxis: SCDs Pt Condition on Discharge: Stable Discharge Disposition: Disch w/ Home Health Serv Discharge Time: <= 30 minutes Discharge Instructions DIET: Follow Instructions for: Heart Healthy Diet, Diabetic Diet Activities you can perform: Regular-No Restrictions Activities to Avoid: Driving Other Activity Instructions: WBAT LLE in CAM and NWB RLE Follow up Referrals: SNF/VINH/HH with [facility] New Medications: Losartan (Losartan) 50 Mg Tab 50 MG PO DAILY Blood Pressure Management #30 Ref 0 TAB Walker Rolling/GetGo (Walker Rolling/GetGo) 1 Mis Mis 1 EA .ROUTE DIRECTED #1 EA Wheelchair (Wheelchair) 1 Mis Mis 1 EA .ROUTE DIRECTED #1 Ref 0 EA Continued Medications: Amiodarone (Amiodarone) 200 Mg Tab 200 MG PO DAILY Regulate Heart Beat #30 Ref 0 TAB Aspirin (Aspirin) 81 Mg Chew 81 MG CHEW DAILY Ref 0 TAB Atorvastatin (Lipitor) 40 Mg Tab 40 MG PO HS Cholesterol Management #30 Ref 0 TAB Cholecalciferol (Vitamin D) 5,000 Unit Tab 5000 UNITS PO DAILY Duloxetine DR (Duloxetine DR) 30 Mg Capdr 30 MG PO DAILY #30 Ref 0 CAP Gabapentin (Gabapentin) 300 Mg Cap 300 MG PO Q6HR #60 Ref 0 CAP Insulin Human Isophane-Regular 70-30 Inj (Novolin 70-30 Inj) 1,000 Unit/10 Ml Vial 30 UNITS SQ BID Blood Sugar Management Ref 0 ML Insulin Human Regular Inj (Novolin R Inj) 1,000 Unit/10 Ml Vial Unknown Dose SQ ACHS Sliding Scale As Directed. Blood Sugar Management #10 Ref 0 ML Isosorbide Mononitrate ER (Isosorbide Mononitrate ER) 30 Mg Shonda 30 MG PO DAILY Prevent Chest Pain #30 Ref 0 TAB Metoprolol Tartrate (Metoprolol Tartrate) 25 Mg Tab 25 MG PO BID HTN Days 30 TAB Montelukast (Montelukast) 10 Mg Tab 10 MG PO HS #30 Ref 0 TAB Tizanidine (Tizanidine) 4 Mg Cap 4 MG PO TID Muscle Spasm Ref 0 CAP Discontinued Medications: Losartan (Losartan) 25 Mg Tab 25 MG PO DAILY Blood Pressure Management #30 Ref 0 TAB Oxycodone-Acetaminophen (Oxycodone-Acetaminophen) 10-325 mg Tab 1 TAB PO QID PRN PAIN Ref 0 TAB Clinton Potter MD Oct 08, 2016 14:42
[2016-10-08] MEDS ORDERED: INSULIN ASPART SUPPLEMENTAL SCALE SQ SCH (16:00)
[2016-10-09] MEDS ORDERED: PHARMACY ORDERED LAB XX ONE (08:45)
== END 2016-10-08 17:28 | disposition home health service (06) | DRG 617 ==
LOC: NETRI 14:44 → NEDA 19:45 → NEPGCP 23:55 → N03B 10-03 13:41 → N03A 10-03 19:50 → N07A 10-04 14:54
PROVIDERS: ADMIT Internal Medicine; ATTEND Internal Medicine
PROC: 0HBMXZZ Excision of Right Foot Skin, External Approach (ICD-10-PCS; 2016-10-03)
PROC: 0Y6M0ZC Detachment at Right Foot, Partial 3rd Ray, Open Approach (ICD-10-PCS; 2016-10-03)
PROC: 0Y6M0ZF Detachment at Right Foot, Partial 5th Ray, Open Approach (ICD-10-PCS; 2016-10-03)
PROC: 0Y6M0Z9 Detachment at Right Foot, Partial 1st Ray, Open Approach (ICD-10-PCS; principal; 2016-10-03 10:14)
DX: E11.621 Type 2 diabetes mellitus with foot ulcer (principal); L03.115 Cellulitis of right lower limb; E11.22 Type 2 diabetes mellitus with diabetic chronic kidney disease; E11.40 Type 2 diabetes mellitus with diabetic neuropathy, unspecified; I50.9 Heart failure, unspecified; I95.9 Hypotension, unspecified; M32.9 Systemic lupus erythematosus, unspecified; M86.9 Osteomyelitis, unspecified; I48.2 Chronic atrial fibrillation; L97.519 Non-pressure chronic ulcer of other part of right foot with unspecified severity; L97.529 Non-pressure chronic ulcer of other part of left foot with unspecified severity; I25.10 Atherosclerotic heart disease of native coronary artery without angina pectoris; S82.302A Unspecified fracture of lower end of left tibia, initial encounter for closed fracture; N18.9 Chronic kidney disease, unspecified; I12.9 Hypertensive chronic kidney disease with stage 1 through stage 4 chronic kidney disease, or unspecified chronic kidney disease; J45.909 Unspecified asthma, uncomplicated; Z93.3 Colostomy status; Z95.1 Presence of aortocoronary bypass graft; Z87.442 Personal history of urinary calculi; Z95.5 Presence of coronary angioplasty implant and graft; Z86.14 Personal history of Methicillin resistant Staphylococcus aureus infection; Z88.1 Allergy status to other antibiotic agents; Z88.0 Allergy status to penicillin; Z91.013 Allergy to seafood; Z79.4 Long term (current) use of insulin; E11.628 Type 2 diabetes mellitus with other skin complications; E78.5 Hyperlipidemia, unspecified; J44.9 Chronic obstructive pulmonary disease, unspecified; Z79.82 Long term (current) use of aspirin; Z87.891 Personal history of nicotine dependence; Z90.13 Acquired absence of bilateral breasts and nipples; Z98.82 Breast implant status; Z82.49 Family history of ischemic heart disease and other diseases of the circulatory system; Z80.3 Family history of malignant neoplasm of breast; Z80.8 Family history of malignant neoplasm of other organs or systems; X58.XXXA Exposure to other specified factors, initial encounter; Y93.9 Activity, unspecified; Y92.9 Unspecified place or not applicable; B95.62 Methicillin resistant Staphylococcus aureus infection as the cause of diseases classified elsewhere
CPT/HCPCS: 36569; 71010; 73610; 73630; 73718; 76000; 76937; 80048; 80053; 80202; 81001; 82550; 82552; 82565; 82948; 83605; 84484; 85025; 85610; 85730; 86403; 87040; 87070; 87086; 87147; 87186; 87205; 88304; 88307; 88311; 93005; 93971; 96374; 96375; J0131; J1815; J2250; J2270; J2370; J2405; J3010; J3370; J7040; J7050; J7060

== ENCOUNTER 2016-10-25 10:56 | Inpatient (IN) | payer OTHER, MEDICARE ==
[~2016-10-25] VITALS: Ht 157.5 cm; Wt 81.8 kg
[~2016-10-25 10:56] MED LIST changes: -CYMB60CA PO; +DULO1CAP2 PO; -EPIN1INJ21 IV PUSH; -EPIN1INJ21 SQ; +GETGO ROLLING W1 MI1; -ISOS20TA PO; +ISOS30TA3 PO; -LOSA25TA PO; +LOSA50TA PO; -OXYC-259 PO; -OXYC1TAB36 PO; -SOLU250I IV PUSH; -VANC10IN IV; +WHEEMIS3
[2016-10-25 10:58] VITALS: BP 104/51; PULSE 80; RESP 17; TEMP 98.6; O2SAT 95
[2016-10-25] MEDS ORDERED: ALEN1TAB48 PO (11:12)
[2016-10-25] MEDS ORDERED: MIRT30TA PO (11:12)
--- NOTE | 2016-10-25 11:13 | PD ---
HPI Chief Complaint: Skin Problem Time Seen by Provider: 11:08 Travel History International Travel<30 days: No Contact w/Intl Traveler<30days: No Traveled to known affect area: No History of Present Illness HPI This is a 60-year-old female who presents to the emergency department with swelling and redness of her right foot, constant, moderate severity, worsening. Patient had a partial amputation performed in early October in the setting of osteomyelitis. She's been on intermittent vancomycin at home. She says she's been having some subjective fevers. She saw her infectious disease doctor yesterday and she saw her vessel manager Dr. Baker today who told her to come into the emergency department for admission due to an infection. PFSH Past Medical History Asthma: Yes Autoimmune Disease: Yes (LUPUS) Blood Disorders: No Anxiety: Yes Depression: Yes Heart Rhythm Problems: No Cardiovascular Problems: Yes High Cholesterol: No Chemotherapy: Yes Chest Pain: No Congestive Heart Failure: No COPD: No Cerebrovascular Accident: No Diabetes: Yes Patient Takes Glucophage: No Endocrine: Yes Gastrointestinal Disorders: Yes (HX FISTULA - COLOSTOMY LEFT UPPER QUAD; ESOPHAGEAL SPASMS) Genitourinary: No Headaches: No Hepatitis: No Hiatal Hernia: No Hypertension: No Immune Disorder: Yes (LUPUS ) Implanted Vascular Access Dvce: Yes Musculoskeletal: Yes (LUPUS - PAIN IN JOINTS/MUSCLE CRAMPS/SPASMS) Neurologic: Yes (DIABETIC NERVE PAIN HANDS & FEET) Psychiatric: Yes Reproductive: No Respiratory: Yes Immunizations Current: Yes Migraines: No Seizures: No Sleep Apnea: No Thyroid Disease: No Menopausal: Yes Past Surgical History Abdominal Surgery: Yes (JAMSHID,COLON SX, COLOSTOMY AND REVERSAL; COLOSTOMY 04/15) AICD: No Body Medical Devices: CARDIAC STENTS, BREAST SALINE IMPLANTS Cardiac Surgery: Yes (CARDIAC STENTS X2, CABG 5 vessels ) Endocrine Surgery: No Genitourinary Surgery: Yes (KIDNEY STONES 1984, ESWL) Gynecologic Surgery: Yes (HYSTERECTOMY) Hysterectomy: Yes Joint Replacement: No Neurologic Surgery: No Oral Surgery: Yes (TONSILLECTOMY) Pacemaker: No Thoracic Surgery: No Other Surgery: Yes (right foot toe amputation) Social History Alcohol Use: No Tobacco Use: No Substance Use: No Allergies-Medications (Allergen,Severity, Reaction): Coded Allergies: Bactrim (Verified Allergy, Severe, Shortness of Breath, 10/25/16) Iodine (Verified Allergy, Severe, THROAT SWELLS, 10/25/16) pt states does not have a allergy to Iodine 01/11/16 JF Penicillin (Verified Allergy, Severe, STOPPED BREATHING, 10/25/16) Shellfish (Verified Allergy, Severe, THROAT SWELLS, 10/25/16) *MDRO Multi-Drug Resistant Organism (Verified Adverse Reaction, Unknown, ) 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 (foot)-10/02/16 Reported Meds & Prescriptions Reported Meds & Active Scripts Active Losartan (Losartan Potassium) 50 Mg Tab 50 Mg PO DAILY Wheelchair (Device) 1 Mis Mis 1 Ea .ROUTE DIRECTED Walker Rolling/GetGo (Device) 1 Mis Mis 1 Ea .ROUTE DIRECTED Metoprolol Tartrate 25 Mg Tab 25 Mg PO BID 30 Days Reported Alendronate (Alendronate Sodium) 70 Mg Tab 70 Mg PO Q7D Mirtazapine 30 Mg Tab 30 Mg PO HS Isosorbide Mononitrate ER (Isosorbide Mononitrate) 30 Mg Shonda 30 Mg PO DAILY Duloxetine DR (Duloxetine HCl) 30 Mg Capdr 30 Mg PO DAILY Lipitor (Atorvastatin Calcium) 40 Mg Tab 40 Mg PO HS Vitamin D (Cholecalciferol) 5,000 Unit Tab 5,000 Units PO DAILY Montelukast (Montelukast Sodium) 10 Mg Tab 10 Mg PO HS Novolin 70-30 Inj (Insulin Human Isoph/Insulin Regular) 1,000 Unit/10 Ml Vial 30 Units SQ BID Novolin R Inj (Insulin Human Regular) 1,000 Unit/10 Ml Vial Unknown Dose SQ ACHS Sliding Scale As Directed. Tizanidine (Tizanidine HCl) 4 Mg Cap 4 Mg PO TID Gabapentin 300 Mg Cap 300 Mg PO Q6HR Aspirin 81 Mg Chew 81 Mg CHEW DAILY Amiodarone (Amiodarone HCl) 200 Mg Tab 200 Mg PO DAILY Review of Systems Except as stated in HPI: all other systems reviewed are Neg Physical Exam Narrative GENERAL:Well appearing, no acute distress SKIN: Right foot stump is well perfused and warm, there is a 10 x 5 cm wound on the distal aspect of the amputation which has stitches in it and is healing, but has surrounding erythema, warmth and some fluctuance at the base of the foot. HEAD: Atraumatic. Normocephalic. EYES: Pupils equal and round. No injection or drainage. ENT: Moist mucous membranes NECK: Trachea midline. CARDIOVASCULAR: Regular rate and rhythm. No murmur appreciated. RESPIRATORY: Clear to auscultation. Breath sounds equal bilaterally. GASTROINTESTINAL: Abdomen soft, non-tender, nondistended. NEUROLOGICAL: Awake and alert. No obvious cranial nerve deficits. Moving all extremities. PSYCHIATRIC: Appropriate mood and affect; insight and judgment normal. Data Data Last Documented VS Vital Signs Date Time Temp Pulse Resp B/P Pulse Ox O2 Delivery O2 Flow Rate FiO2 10/25/16 10:58 98.6 80 17 104/51 95 Orders Complete Blood Count With Diff (10/25/16 11:08) Comprehensive Metabolic Panel (10/25/16 11:08) ^ Insert Iv (10/25/16 11:08) Westergren Sedimentation Rate (10/25/16 11:08) C-Reactive Protein (Crp) (10/25/16 11:08) Blood Culture (10/25/16 11:09) Foot, Complete ([id number]) (10/25/16 ) Morphine Inj (Morphine Inj) (10/25/16 12:00) Mri Foot W/O Contrast (10/25/16 ) Arterial Segmd [employer] Brigitte (10/25/16 ) Type And Screen (10/25/16 12:20) Cbc No Diff, Includes Plts (10/25/16 12:28) Ecg Monitoring (10/25/16 13:37) Iv Access Insert/Monitor (10/25/16 13:37) Oximetry (10/25/16 13:37) Sodium Chloride 0.9% Flush (Ns Flush) (10/25/16 13:45) Pantoprazole Inj (Protonix Inj) (10/25/16 13:45) Pantoprazole Inj (Protonix Inj) (10/25/16 13:45) Red Blood Cells (Rbc) (10/25/16 13:37) Blood Product Administration .UPON TRANSFUSION (10/25/16 13:37) Sodium Chlor 0.9% 250 Ml Inj (Ns 250 Ml (10/25/16 13:45) Labs Laboratory Tests Test 10/25/16 10/25/16 11:55 12:31 White Blood Count 9.4 TH/MM3 9.5 TH/MM3 Red Blood Count 2.37 MIL/MM3 2.59 MIL/MM3 Hemoglobin 6.3 GM/DL 7.0 GM/DL Hematocrit 19.9 % 21.8 % Mean Corpuscular Volume 84.0 FL 84.3 FL Mean Corpuscular Hemoglobin 26.7 PG 27.1 PG Mean Corpuscular Hemoglobin 31.8 % 32.1 % Concent Red Cell Distribution Width 17.3 % 17.0 % Platelet Count 262 TH/MM3 254 TH/MM3 Mean Platelet Volume 6.7 FL 6.6 FL Neutrophils (%) (Auto) 71.6 % Lymphocytes (%) (Auto) 14.2 % Monocytes (%) (Auto) 10.5 % Eosinophils (%) (Auto) 2.9 % Basophils (%) (Auto) 0.8 % Neutrophils # (Auto) 6.7 TH/MM3 Lymphocytes # (Auto) 1.3 TH/MM3 Monocytes # (Auto) 1.0 TH/MM3 Eosinophils # (Auto) 0.3 TH/MM3 Basophils # (Auto) 0.1 TH/MM3 CBC Comment DIFF FINAL Differential Comment Erythrocyte Sedimentation Rate GREATER THAN 140 mm/hr Sodium Level 138 MEQ/L Potassium Level 4.4 MEQ/L Chloride Level 106 MEQ/L Carbon Dioxide Level 26.8 MEQ/L Anion Gap 5 MEQ/L Blood Urea Nitrogen 28 MG/DL Creatinine 1.33 MG/DL Estimat Glomerular Filtration 41 ML/MIN Rate Random Glucose 97 MG/DL Calcium Level 8.0 MG/DL Total Bilirubin 0.2 MG/DL Aspartate Amino Transf 86 U/L (AST/SGOT) Alanine Aminotransferase 34 U/L (ALT/SGPT) Alkaline Phosphatase 59 U/L C-Reactive Protein 11.00 MG/DL Total Protein 7.1 GM/DL Albumin 2.1 GM/DL Blood Type A POSITIVE Antibody Screen NEGATIVE MDM Medical Decision Making Medical Screen Exam Complete: Yes Emergency Medical Condition: Yes Interpretation(s) Afebrile, no tachycardia, normotensive No leukocytosis Anemia Sedimentation rate is greater than 140 Renal insufficiency CRP is 11 Differential Diagnosis Osteomyelitis, cellulitis, sepsis, GI bleed Narrative Course This is a 60-year-old female who has a history of diabetes who presents to the emergency department with increasing redness and swelling of her right distal foot stump. She was sent in by Dr. Hodges for admission, infectious disease consultation and vascular surgery consultation. She was placed on a monitor and an IV was established. Labs were obtained which incidentally noted severe anemia. 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 She follows with Dr. Moncada. I repeated her hemoglobin which went from 6.3-7 but was still low. Stool in the patient's ostomy was Hemoccult positive. Patient was started on pantoprazole and will be admitted for GI as well as evaluation of her persistent and worsening osteomyelitis. Blood transfusion was initiated in the emergency department. Diagnosis Primary Impression: Osteomyelitis of right foot Qualified Code: M86.9 - Osteomyelitis of right foot, unspecified type Additional Impression: GI bleed Qualified Code: K92.2 - Gastrointestinal hemorrhage, unspecified gastrointestinal hemorrhage type Admitting Information Admitting Physician Requests: Admit Delilah Zamorano MD Oct 25, 2016 11:12
--- NOTE | 2016-10-25 11:50 | RADRPT ---
EXAM DATE/TIME: 10/25/2016 11:29 [facility] COMPARISON: FOOT RIGHT COMPLETE ([id number]), October 03, 2016, 12:25. INDICATIONS : Right foot pain. Pt. states she had surgery and its becoming infected. MEDICAL HISTORY : Diabetes mellitus type II. Lupus. SURGICAL HISTORY : CABG. Right foot surgery. ENCOUNTER: Initial ACUITY: 2 weeks PAIN SCORE: 9/10 LOCATION: Right Foot. FINDINGS: Three view examination of the right foot demonstrates transmetatarsal amputation. Non-corticated dist al edge of the second cuneiform is stable and reflects the recent surgical intervention. The postoper ative air identified in the stump previously shows interval improvement. However, there is still some air in the very distal aspect of the stump which could represent a developing cellulitis. Prominent calcaneal spur at the plantar aponeurosis. CONCLUSION: 1. Transmetatarsal amputation. Non-corticated distal edge of the second cuneiform is stable and refle cts the postsurgical changes. 2. Postoperative air in the stomach tissue shows improvement but there is still some persistent air i n the distal aspect of the stump which could represent a developing cellulitis. Please correlate with clinical presentation. Sandeep Velázquez MD on October 25, 2016 at 11:41 Board Certified Radiologist. This report was verified electronically.
[2016-10-25] MEDS ORDERED: MORPHINE SULFATE 8 MG/ML INJ IV PUSH ONE (12:00)
[2016-10-25 12:11] LABS: AUTOMATED NEUTROPHIL # 6.7 TH/MM3 (1.8-7.7); BASOPHIL # 0.1 TH/MM3 (0-0.2); BASOPHIL % 0.8 % (0.0-2.0); EOSINOPHIL # 0.3 TH/MM3 (0-0.4); EOSINOPHIL % 2.9 % (0.0-4.0); LYMPH % 14.2 % (9.0-44.0); LYMPHOCYTE # 1.3 TH/MM3 (1.0-4.8); MEAN CORPUSCULAR HEMOGLOBIN 26.7 PG (27.0-34.0); MEAN CORPUSCULAR HGB CONC 31.8 % (32.0-36.0); MONO % 10.5 % (0.0-8.0); NEUT % 71.6 % (16.0-70.0); PLATELET COUNT 262 TH/MM3 (150-450); RED BLOOD COUNT 2.37 MIL/MM3 (4.00-5.30); RED CELL DISTRIBUTION WIDTH 17.3 % (11.6-17.2); WHITE BLOOD COUNT 9.4 TH/MM3 (4.0-11.0)
[2016-10-25 12:15] LABS: HEMO FLAGS DIFF FINAL
[2016-10-25 12:17] LABS: HEMATOCRIT 19.9 % (35.0-46.0)
[2016-10-25 12:33] LABS: ALT (GPT) 34 U/L (10-53); ANION GAP 5 MEQ/L (5-15); AST (GOT) 86 U/L (15-37); BICARBONATE 26.8 MEQ/L (21.0-32.0); BLOOD UREA NITROGEN 28 MG/DL (7-18); CHLORIDE 106 MEQ/L (98-107); GLOMERULAR FILTRATION RATE 41 ML/MIN (>89); POTASSIUM 4.4 MEQ/L (3.5-5.1); SODIUM (NA) 138 MEQ/L (136-145)
[2016-10-25 12:35] LABS: ALKALINE PHOSPHATASE 59 U/L (45-117); TOTAL BILIRUBIN ADULT 0.2 MG/DL (0.2-1.0)
[2016-10-25 12:46] LABS: HEMATOCRIT 21.8 % (35.0-46.0); MEAN CELL VOLUME 84.3 FL (80.0-100.0); MEAN CORPUSCULAR HEMOGLOBIN 27.1 PG (27.0-34.0); MEAN CORPUSCULAR HGB CONC 32.1 % (32.0-36.0); PLATELET COUNT 254 TH/MM3 (150-450); RED BLOOD COUNT 2.59 MIL/MM3 (4.00-5.30); REVIEW FLAG FINAL; WHITE BLOOD COUNT 9.5 TH/MM3 (4.0-11.0)
[2016-10-25] MEDS ORDERED: SODIUM CHLOR 0.9% 250 ML INJ 250 ML IV ONE (13:45)
[2016-10-25] MEDS ORDERED: PANTOPRAZOLE INJ 80 MG in SODIUM CHLORIDE 0.9% INJ 35 ML IV ONE (13:45)
[2016-10-25] MEDS ORDERED: PANTOPRAZOLE INJ 80 MG in SODIUM CHLORIDE 0.9% INJ 100 ML IV SCH (13:45)
[2016-10-25] MEDS ORDERED: HYDROmorphone HCL PF 1 MG/ML VIAL IV PUSH ONE (14:00)
[2016-10-25] MEDS ORDERED: SODIUM CHLOR 0.9% 1000 ML INJ 1,000 ML IV SCH (14:05)
[2016-10-25] MEDS ORDERED: TEMAZEPAM 15 MG CAP PO PRN (14:15)
[2016-10-25] MEDS ORDERED: ONDANSETRON HCL 4 MG/2 ML VIAL IVP PRN (14:15)
[2016-10-25] MEDS ORDERED: MAGNESIUM HYDROXIDE SUSP 30 ML CUP PO PRN (14:15)
[2016-10-25] MEDS ORDERED: NALOXONE HCL 0.4 MG/ML AMP IV PRN (14:15)
[2016-10-25] MEDS ORDERED: ACETAMINOPHEN 325 MG TAB PO PRN (14:15)
[2016-10-25] MEDS ORDERED: SODIUM CHLORIDE 0.9% FLUSH 10 ML FLUSH IV FLUSH PRN (14:15)
--- NOTE | 2016-10-25 14:58 | HHI.HP ---
[facility] Service [facility] Primary Care Physician Alonso Robins MD Admission Diagnosis gi bleed, diabetic foot infection Diagnoses: Chief Complaint: Diabetic foot infection, GI bleed. Travel History International Travel<30 Days: No Contact w/Intl Traveler <30 Da: No Traveled to Known Affected Are: No History of Present Illness Ms. 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 Patient was discharged on 10/08/2016 after being treated for right foot osteomyelitis. She underwent root transmetatarsal amputation. Cx grew MRSA. Patient was discharged home to continue 6 weeks of IV Vancomycin and follow up with Dr. Garcia (ID). Patient denies any chest pain, shortness of breath. She had low grade temp at home. In the ED, patient was also found to have hemoglobin of 7.0. Patient has a colostomy performed by Dr. Moncada previously. One unit of PRBCs were given by ED. No changes in bladder habits. Review of Systems ROS Limitations: Other (negative except as noted in history of present illness) Past Family Social History Past Medical History Lupus HTN COPD, oxygen as needed at home DM CAD CHF Afib Past Surgical History CABG 2013 Right illiac artery bypass 2015 Right 2nd and 5th toe amputation colostomy Mastectomy 1979 Breast augmentation Hysterectomy Tonsillectomy Reported Medications Losartan (Losartan Potassium) 50 Mg Tab 50 Mg PO DAILY Wheelchair (Device) 1 Mis Mis 1 Ea .ROUTE DIRECTED Walker Rolling/GetGo (Device) 1 Mis Mis 1 Ea .ROUTE DIRECTED Metoprolol Tartrate 25 Mg Tab 25 Mg PO BID 30 Days Reported Alendronate (Alendronate Sodium) 70 Mg Tab 70 Mg PO Q7D Mirtazapine 30 Mg Tab 30 Mg PO HS Isosorbide Mononitrate ER (Isosorbide Mononitrate) 30 Mg Shonda 30 Mg PO DAILY Duloxetine DR (Duloxetine HCl) 30 Mg Capdr 30 Mg PO DAILY Lipitor (Atorvastatin Calcium) 40 Mg Tab 40 Mg PO HS Vitamin D (Cholecalciferol) 5,000 Unit Tab 5,000 Units PO DAILY Montelukast (Montelukast Sodium) 10 Mg Tab 10 Mg PO HS Novolin 70-30 Inj (Insulin Human Isoph/Insulin Regular) 1,000 Unit/10 Ml Vial 30 Units SQ BID Novolin R Inj (Insulin Human Regular) 1,000 Unit/10 Ml Vial Unknown Dose SQ ACHS Sliding Scale As Directed. Tizanidine (Tizanidine HCl) 4 Mg Cap 4 Mg PO TID Gabapentin 300 Mg Cap 300 Mg PO Q6HR Aspirin 81 Mg Chew 81 Mg CHEW DAILY Amiodarone (Amiodarone HCl) 200 Mg Tab 200 Mg PO DAILY Allergies: Coded Allergies: Bactrim (Verified Allergy, Severe, Shortness of Breath, 10/25/16) Iodine (Verified Allergy, Severe, THROAT SWELLS, 10/25/16) pt states does not have a allergy to Iodine 01/11/16 JF Penicillin (Verified Allergy, Severe, STOPPED BREATHING, 10/25/16) Shellfish (Verified Allergy, Severe, THROAT SWELLS, 10/25/16) *MDRO Multi-Drug Resistant Organism (Verified Adverse Reaction, Unknown, ) 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 (foot)-10/02/16 Family History DAD: CAD, AL Mom: breast cancer, bone cancer Grandfather: DM Social History Tobacco use: Quit 9-10 months ago Alcohol use: Denies Illicit drug use: Denies Physical Exam Vital Signs Vital Signs Date Time Temp Pulse Resp B/P Pulse Ox O2 Delivery O2 Flow Rate FiO2 10/25/16 10:58 98.6 80 17 104/51 95 Physical Exam GENERAL: This is a well-nourished, well-developed patient, in no apparent distress. SKIN: No rashes, ecchymoses or lesions. Warm and dry. HEAD: Atraumatic. Normocephalic. No temporal or scalp tenderness. EYES: Pupils equal round and reactive. No injection or drainage. ENT: Nose without bleeding, purulent drainage or septal hematoma. Airway patent. NECK: Trachea midline. No lymphadenopathy. Supple, nontender, no meningeal signs. CARDIOVASCULAR: Regular rate and rhythm without murmurs, gallops, or rubs. No JVD. RESPIRATORY: Clear to auscultation. Breath sounds equal bilaterally. No wheezes , rales, or rhonchi. GASTROINTESTINAL: Abdomen soft, non-tender, nondistended. No guarding. MUSCULOSKELETAL: Extremities without clubbing, cyanosis, or edema. Right sided transmetatarsal amputation which has become gangrenous. Erythema noted up the leg below knee. NEUROLOGICAL: Awake and alert. Cranial nerves II through XII intact. No focal neurological deficits. Normal speech. Laboratory Laboratory Tests Test 10/25/16 10/25/16 10/25/16 11:55 12:31 13:46 White Blood Count 9.4 9.5 Red Blood Count 2.37 2.59 Hemoglobin 6.3 7.0 Hematocrit 19.9 21.8 Mean Corpuscular Volume 84.0 84.3 Mean Corpuscular Hemoglobin 26.7 27.1 Mean Corpuscular Hemoglobin 31.8 32.1 Concent Red Cell Distribution Width 17.3 17.0 Platelet Count 262 254 Mean Platelet Volume 6.7 6.6 Neutrophils (%) (Auto) 71.6 Lymphocytes (%) (Auto) 14.2 Monocytes (%) (Auto) 10.5 Eosinophils (%) (Auto) 2.9 Basophils (%) (Auto) 0.8 Neutrophils # (Auto) 6.7 Lymphocytes # (Auto) 1.3 Monocytes # (Auto) 1.0 Eosinophils # (Auto) 0.3 Basophils # (Auto) 0.1 CBC Comment DIFF FINAL Differential Comment Erythrocyte Sedimentation Rate GREATER THAN 140 Sodium Level 138 Potassium Level 4.4 Chloride Level 106 Carbon Dioxide Level 26.8 Anion Gap 5 Blood Urea Nitrogen 28 Creatinine 1.33 Estimat Glomerular Filtration 41 Rate Random Glucose 97 Calcium Level 8.0 Total Bilirubin 0.2 Aspartate Amino Transf 86 (AST/SGOT) Alanine Aminotransferase 34 (ALT/SGPT) Alkaline Phosphatase 59 C-Reactive Protein 11.00 Total Protein 7.1 Albumin 2.1 Blood Type A POSITIVE Antibody Screen NEGATIVE Crossmatch Leukocyte-Reduced Red Blood Cells Blood Bank Comment Date/Time Procedure Status Source Growth 10/25/16 11:56 Aerobic Blood Culture Received Blood Peripheral Pending 10/25/16 11:56 Anaerobic Blood Culture Received Blood Peripheral Pending Result Diagram: 10/25/16 1231 10/25/16 1155 Imaging Last Impressions Foot X-Ray 10/25/16 0000 Signed Impressions: Service Date/Time: Tuesday, October 25, 2016 11:29 - CONCLUSION: 1. Transmetatarsal amputation. Non-corticated distal edge of the second cuneiform is stable and reflects the postsurgical changes. 2. Postoperative air in the stomach tissue shows improvement but there is still some persistent air in the distal aspect of the stump which could represent a developing cellulitis. Please correlate with clinical presentation. Sandeep Velázquez MD Assessment and Plan Problem List: (1) Diabetic foot infection ICD Code: E11.69 Status: Acute (2) DM (diabetes mellitus) ICD Code: E11.9 Status: Chronic (3) A-fib ICD Code: I48.91 Status: Chronic (4) HTN (hypertension) ICD Code: I10 Status: Chronic Assessment and Plan Ms. Finnegan is a 60 year old female with a history of right sided transmetatarsal amputation now presents with gangrenous tissue with erythema extending up. She was also found to have Hgb of 7.0 requiring one unit of PRBCs. Vascular surgery (Dr. Cooper) evaluated patient and determined that patient may need below knee amputation. - Severe peripheral vascular disease - Right foot infection with gangrenous tissue - Dr. Wakefield evaluated patient and recommends right BKA - Will start patient on Vancomycin and Levaquin 750mg Q48hrs. Previous cx grew MRSA. - ID consult pending. - Percocet and Dilaudid IV PRN for pain management. - Probable acute GI bleed anemia - one unit of PRBCs per ED. - Administer Protonix 40mg IV once then start Protonix 40mg BID. - Consult Dr. Kole Moncada (Colorectal surgery). - Atrial fibrillation - Continue Metoprolol 25mg BID, Amiodarone 200mg Qday. - No anti-coagulation at this point. Hold Aspirin in light of GI bleed. - Diabetes mellitus - Diabetic neuropathy - Blood glucose less than 100 on admission. - Will continue Levemir 5 units QHS and sliding scale insulin. - CAD s/p CABG, stents - Hold Aspirin for now. Continue Metoprolol 25mg BID, Losartan 50mg Qday, Imdur 30mg Qday - Continue Lipitor 40mg Qday. Full code. SCDs for now. Pharmacological DVT prophylaxis contraindicated due to acute GI bleed. Physician Certification 2 Midnight Certification Type: Admission for Inpatient Services Order for Inpatient Services The services are ordered in accordance with Medicare regulations or non- Medicare payer requirements, as applicable. In the case of services not specified as inpatient-only, they are appropriately provided as inpatient services in accordance with the 2-midnight benchmark. Estimated LOS (days): 3 days is the estimated time the patient will need to remain in the hospital, assuming treatment plan goals are met and no additional complications. Post-Hospital Plan: Home Darian Vela DO Oct 25, 2016 14:58
--- NOTE | 2016-10-25 15:14 | RADRPT ---
EXAM DATE/TIME: 10/25/2016 00:00 [facility] COMPARISON: CTA RUNOFF W 3D RECON, December 16, 2015, 14:46. ARTERIAL SEGMENTAL DOPPLER COMP W/TBI, December 12, 2015, 0:0 0. INDICATIONS : Leg pain TECHNIQUE: Four-cuff ankle and brachial pressures were obtained. Pulse cuff waveform tracings of the ankles were recorded, and ankle-brachial indices were calculated. PRESSURES (mmHg): Brachial (arm): Left 108 Ankle: Right 64 Left 80 JOSE: Right 0.59 Left 0.74 TBI: Left 0.96 PULSED CUFF WAVEFORMS: The waveform is diminished at the level of the right ankle. CONCLUSION: Diminished ABIs bilaterally which would suggest significant peripheral vascular disease. ABIs are mil dly improved when compared to previous study dated 12/12/15. Jalen Lawler MD on October 25, 2016 at 15:11 Board Certified Radiologist. This report was verified electronically.
[2016-10-25 16:00] VITALS: BP 171/74; PULSE 73; RESP 17; TEMP 96.6; O2SAT 99
[2016-10-25] MEDS ORDERED: HYDROmorphone HCL PF 1 MG/ML VIAL IV PUSH PRN (16:00)
--- NOTE | 2016-10-25 16:03 | PD.CAR.PN ---
CVT Progress Note Subjective/Hospital Course: 61 year-old female with severe peripheral vascular disease good inflow from the top however small vessel disease below the level of the knee distal to trifurcation Somebody tried to do some sort of bypass in another hospital and this is now occluded as well. Patient recently had transmetatarsal amputation of the right foot and the site is gangrenous with ascending cellulitis in the area Blood supply simply insufficient to make this all area heal A she will need below-knee amputation on the right She'll be scheduled for early next week but first let sort out the anemia and possible questionable GI bleed Full consult dictated Will follow the patient Thanks J Objective: Vital Signs Date Time Temp Pulse Resp B/P Pulse Ox O2 Delivery O2 Flow Rate FiO2 10/25/16 10:58 98.6 80 17 104/51 95 Labs: Laboratory Tests Test 10/25/16 10/25/16 10/25/16 11:55 12:31 13:46 White Blood Count 9.4 TH/MM3 9.5 TH/MM3 (4.0-11.0) (4.0-11.0) Red Blood Count 2.37 MIL/MM3 2.59 MIL/MM3 (4.00-5.30) (4.00-5.30) Hemoglobin 6.3 GM/DL 7.0 GM/DL (11.6-15.3) (11.6-15.3) Hematocrit 19.9 % 21.8 % (35.0-46.0) (35.0-46.0) Mean Corpuscular Volume 84.0 FL 84.3 FL (80.0-100.0) (80.0-100.0) Mean Corpuscular Hemoglobin 26.7 PG 27.1 PG (27.0-34.0) (27.0-34.0) Mean Corpuscular Hemoglobin 31.8 % 32.1 % Concent (32.0-36.0) (32.0-36.0) Red Cell Distribution Width 17.3 % 17.0 % (11.6-17.2) (11.6-17.2) Platelet Count 262 TH/MM3 254 TH/MM3 (150-450) (150-450) Mean Platelet Volume 6.7 FL 6.6 FL (7.0-11.0) (7.0-11.0) Neutrophils (%) (Auto) 71.6 % (16.0-70.0) Lymphocytes (%) (Auto) 14.2 % (9.0-44.0) Monocytes (%) (Auto) 10.5 % (0.0-8.0) Eosinophils (%) (Auto) 2.9 % (0.0-4.0) Basophils (%) (Auto) 0.8 % (0.0-2.0) Neutrophils # (Auto) 6.7 TH/MM3 (1.8-7.7) Lymphocytes # (Auto) 1.3 TH/MM3 (1.0-4.8) Monocytes # (Auto) 1.0 TH/MM3 (0-0.9) Eosinophils # (Auto) 0.3 TH/MM3 (0-0.4) Basophils # (Auto) 0.1 TH/MM3 (0-0.2) CBC Comment DIFF FINAL Differential Comment Erythrocyte Sedimentation Rate GREATER THAN 140 mm/hr (0-30) Sodium Level 138 MEQ/L (136-145) Potassium Level 4.4 MEQ/L (3.5-5.1) Chloride Level 106 MEQ/L (98-107) Carbon Dioxide Level 26.8 MEQ/L (21.0-32.0) Anion Gap 5 MEQ/L (5-15) Blood Urea Nitrogen 28 MG/DL (7-18) Creatinine 1.33 MG/DL (0.50-1.00) Estimat Glomerular Filtration 41 ML/MIN (>89) Rate Random Glucose 97 MG/DL (74-106) Calcium Level 8.0 MG/DL (8.5-10.1) Total Bilirubin 0.2 MG/DL (0.2-1.0) Aspartate Amino Transf 86 U/L (15-37) (AST/SGOT) Alanine Aminotransferase 34 U/L (10-53) (ALT/SGPT) Alkaline Phosphatase 59 U/L (45-117) C-Reactive Protein 11.00 MG/DL (0.00-0.30) Total Protein 7.1 GM/DL (6.4-8.2) Albumin 2.1 GM/DL (3.4-5.0) Blood Type A POSITIVE Antibody Screen NEGATIVE Crossmatch Leukocyte-Reduced Red Blood Cells Blood Bank Comment Result Diagram: 10/25/16 1231 10/25/16 1155 Chantale Wakefield MD Oct 25, 2016 16:02
[2016-10-25] MEDS ORDERED: GADODIAMIDE PF 287 MG/ML 20 ML VIAL (for RAD MRI) IV ONE (16:16)
--- NOTE | 2016-10-25 16:25 | RADRPT ---
EXAM DATE/TIME: 10/25/2016 14:13 [place] COMPARISON: No previous studies available for comparison. INDICATIONS : Osteomyelitis. CONTRAST: 16 cc Omniscan (gadodiamide) IV MEDICAL HISTORY : Diabetes mellitus type 2. SURGICAL HISTORY : CABG Appendectomy. Cholecystectomy. Partial amputation right foot. ENCOUNTER: Initial ACUITY: 3 day PAIN SCORE: 4/10 LOCATION: Right foot TECHNIQUE: Multiplanar, multisequence MRI examination was performed without contrast and after th e intravenous administration of gadolinium. FINDINGS: MRI of the right foot was performed with and without contrast. There is a significant a mount of edema throughout the distal portion of the amputation. There is impressive bony edema throug hout the cuneiform bones and the medial aspect of the navicular bone. Pre and post contrast weighted sequences demonstrate large areas of nonenhancement involving the distal and lateral portions of the amputation. On the axial images the area of nonenhancement measures almost 5.1 x 2.0 cm across. Jose e of its fluid suggesting abscess, other parts have some mixed signal could be necrotic tissue. The fluid and pocket of nonenhancement extends from the medial edge of the medial cuneiform bone and exte nds all the way across the intermediate and lateral cuneiform bone. There are a few small extensions to the anterior skin surface. CONCLUSION: Still significant fluid along the distal amputated margins of the middle, medial, and lateral cuneiform bones concerning for some residual fluid, possible abscess. There is also marked decreased enhancement of the soft tissues in the distal lateral portion of the amputation, correlate for tissue viability. Please see above. Saran Kenyon MD on October 25, 2016 at 16:16 Board Certified Radiologist. This report was verified electronically.
[2016-10-25] MEDS ORDERED: PANTOPRAZOLE SODIUM 40 MG VIAL IV PUSH ONE (16:30)
[2016-10-25 17:01] VITALS: BP 171/74; RESP 17; TEMP 96.6; O2SAT 99
[2016-10-25] MEDS: oxyCODONE/ACETAMINOPHEN 7.5 MG/325 MG TAB PO PRN ×2 (17:11→23:39)
[2016-10-25 17:25] VITALS: BP 180/80; PULSE 77; RESP 17; TEMP 98; O2SAT 98
[2016-10-25] MEDS ORDERED: GLUCAGON 1 MG/ML VIAL OTHER PRN (18:00)
[2016-10-25] MEDS ORDERED: DEXTROSE 50% IN WATER 50 ML VIAL(D50) IV PUSH PRN (18:00)
--- NOTE | 2016-10-25 18:18 | MB ---
cc: CHANTALE EVANS MD DATE OF CONSULTATION 10/25/16 REASON FOR CONSULTATION Gangrene of the right foot, cellulitis, osteomyelitis, ischemia of the right leg. HISTORY OF PRESENT ILLNESS This 61-year-old female underwent, beginning about 10 days ago, forefoot amputation by Dr. Spaulding. This was healing well and then suddenly became dark and gangrenous. The patient now has gangrene of the distal foot amputation site with osteomyelitis. Question arises about further vascular surgical implications. I have seen this lady about a year ago. At that point, she presented with a scab of her right second toe and gangrene of the second toe with ascending cellulitis. She had initially toe amputation and adequacy of the blood flow was questioned. At that time, the patient had dopplerable popliteal pulse and very weak posterior tibial pulse. She had no dorsalis pedis pulse on the right. CTA revealed small vessel disease below the level of the knee with intact trifurcation and scattered bits and pieces of anterior tibial, posterior tibial and peroneal artery. I did not think that the patient would benefit from bypass surgery but offered her possibly an endovascular intervention and referral to interventional radiology. The patient instead went to another hospital abd somebody did a femoral to distal bypass. PAST MEDICAL HISTORY 1. Diabetes, 2. Hypertension, 3. Systemic lupus 4. Breast cancer 5. COPD PAST SURGICAL HISTORY 1. Coronary artery bypass graft 2. Above-mentioned bypass to the right leg of some sort 3. Perforated diverticulitis with colostomy and reversal of the same. 3. Ventral hernia repair with mesh and then removal of the mesh. 4. Colon resection in 2013 for parastomal hernia and permanent left colostomy 5. Tonsillectomy, 6. Hysterectomy 7. Bilateral mastectomy reconstruction and then removal of the breast implant for infection followed by reconstruction with muscle flap. SOCIAL HISTORY The patient smokes about a pack a day and used to smoke about three packs a day in the past. The patient never stopped smoking. PHYSICAL EXAMINATION GENERAL: A 61-year-old female appearing gaunt, pale but in no acute distress. HEENT: Normocephalic. No trauma to head. Pupils equally reactive. Extraocular muscles intact. NECK: Supple, bilateral carotid pulses. No bruits. CHEST: Decreased breath sounds over both lung craven consistent with moderate COPD. The patient has some chest wall retraction and some atrophy of the chest wall musculature consistent with pulmonary cachexia. ABDOMEN: Soft. Active bowel sounds. Left colostomy site. Scars from previous surgery over the abdomen. EXTREMITIES: The patient has very weak bilateral femoral pulses and on the left the patient has popliteal pulse and weak posterior tibial pulse. I do not get dorsalis pedis pulse. On the right, the patient has very weak popliteal pulse by Doppler and then I do not get either dorsalis pedis or posterior tibial pulse. There is a transmetatarsal amputation site which is gangrenous, necrotic with cellulitis extending up the leg. IMPRESSION AND RECOMMENDATIONS At this point, this is a lady with small vessel disease below the level of the knee . The bypass performed at another hospital is still patent. ABIs which are 0.6 and reflecting the signs of severe peripheral vascular disease. This is not reconstructable disease in any way because there is essentially nothing to do to improve the flow into the gangrenous tissue. Bypass preformed last year is still patent . The blood supply to the leg is adequate to sustain the below-knee amputation but patient does not want to lose her leg if anything is possible other than that. Therefore the I will defer to podiatry and plastic surgery possibly debriding and grafting this area and see if it heals. We will reserve amputation as a last resort effort diverting else fails. Chantale BYERS /3:56 PM /5:57 PM RAMON
[2016-10-25] MEDS: GABAPENTIN 300 MG CAP PO SCH ×2 (18:48→22:49)
[2016-10-25] MEDS: HYDROmorphone HCL PF 1 MG/ML VIAL IV PUSH PRN ×2 (19:37→22:49)
[2016-10-25 20:34] VITALS: BP 156/69; PULSE 78; RESP 18; TEMP 97.4; O2SAT 97
[2016-10-25] MEDS: MONTELUKAST SODIUM 10 MG TAB PO SCH (20:59)
[2016-10-25] MEDS: INSULIN ASPART SUPPLEMENTAL SCALE SQ SCH (20:59)
[2016-10-25] MEDS: MIRTAZAPINE 15 MG TAB PO SCH (20:59)
[2016-10-25] MEDS: METOPROLOL TARTRATE 25 MG TAB PO SCH (21:00)
[2016-10-25] MEDS: INSULIN DETEMIR 100 UNITS/ML VIAL SQ SCH (21:00)
[2016-10-25] MEDS ORDERED: SODIUM CHLORIDE 0.9% FLUSH 10 ML FLUSH IV FLUSH SCH (21:00)
[2016-10-25] MEDS: ATORVASTATIN 40 MG TAB PO SCH (21:00)
[2016-10-25] MEDS ORDERED: Vancomycin Consult Pharmacy 1 EA OTHER SCH (23:00)
[2016-10-25] MEDS ORDERED: LEVOFLOXACIN 750 MG PREMIX INJ 150 ML IV SCH (23:00)
--- NOTE | 2016-10-25 23:08 | PD.ID.CON ---
History of Present Illness Service ID Consult Requested By Dr Vela Reason for Consult R foot osteomyelitis Primary Care Physician Alonso Robins MD Diagnoses: History of Present Illness Pt is known to me from her recent admission 60 yo F with extensive past med hx including PVD, DM and tobaccoism (just quit smoking 9 mos ago) sp RLE periferal bypass presented sp R foot transmetatarsal amputation R foot for chronic osteo due to MRSA Prior to it she failed multiple courses of antibiotics. She was discharged on IV vancomycin but during her therapy with [facility] I recieved calls concerning her creatinine . We had to hold vanco and give a dose of daptomycin, then resumed vancomycin She start seeing Dr Khanna. Meanwhile her wound incision broke down and the foot and distal RLE swell and got red She developped gangrenous changes on her foot and was sent for admission to [facility]. She was seen by Dr Wakefield who found her having severe unreconstructable PVD Her MRI showed significant fluid along the distal amputated margins of the middle, medial, and lateral cuneiform bones concerning for some residual fluid , possible abscess. She is scheduled for BKA She co some fever, chills She also presented with low Hb and her creatinine went down to normal CK level was high up to 1800+ 1 week ago Review of Systems Except as stated in HPI: all other systems reviewed are Neg Past Family Social History Allergies: Coded Allergies: Bactrim (Verified Allergy, Severe, Shortness of Breath, 10/25/16) Iodine (Verified Allergy, Severe, THROAT SWELLS, 10/25/16) pt states does not have a allergy to Iodine 01/11/16 JF Penicillin (Verified Allergy, Severe, STOPPED BREATHING, 10/25/16) Shellfish (Verified Allergy, Severe, THROAT SWELLS, 10/25/16) *MDRO Multi-Drug Resistant Organism (Verified Adverse Reaction, Unknown, ) 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 (foot)-10/02/16 Past Medical History Lupus HTN COPD, oxygen as needed at home DM CAD CHF Afib colovesiluar fistula Past Surgical History CABG 2013 Right illiac artery bypass 2015 Right 2nd and 5th toe amputation colostomy Mastectomy 1979 Breast augmentation Hysterectomy Tonsillectomy Active Ordered Medications Medications where reviewed in EMR Antibiotics Include: none Family History \ DAD: CAD, [place] Mom: breast cancer, bone cancer Grandfather: DM Social History Tobacco use: Quit 9 months ago Alcohol use: Denies Illicit drug use: Denies Physical Exam Vital Signs Vital Signs Date Time Temp Pulse Resp B/P Pulse Ox O2 Delivery O2 Flow Rate FiO2 10/25/16 20:34 97.4 78 18 156/69 97 10/25/16 17:25 98.0 77 17 180/80 98 10/25/16 17:01 96.6 17 171/74 99 10/25/16 16:00 96.6 73 17 171/74 99 10/25/16 10:58 98.6 80 17 104/51 95 Physical Exam CONSTITUTIONAL/GENERAL: This is an adequately nourished patient, in no apparent distress. TUBES/LINES/DRAINS: SKIN: No jaundice, rashes, or lesions. . Skin temperature appropriate. Not diaphoretic. Breast: sp b/l mastectomy with well healed scars HEAD: Atraumatic. Normocephalic. EYES: Pupils equal and round and reactive. Extraocular motions intact. No scleral icterus. No injection or drainage. Fundi not examined. ENT: Hearing grossly normal. Nose without bleeding or purulent drainage. Throat without visible erythema, exudates, masses, or lesions. Edentulous NECK: Trachea midline. Supple, nontender. . CARDIOVASCULAR: Regular rate and rhythm without murmurs, gallops, or rubs. No JVD. Peripheral pulses symmetric. RESPIRATORY/CHEST: Symmetric, unlabored respirations. Clear to auscultation. Breath sounds equally diminished bilaterally. No wheezes, rales, or rhonchi. GASTROINTESTINAL: Abdomen soft globular, non-tender, mildly distended. No hepato -splenomegaly, or palpable masses. No guarding. Bowel sounds present. Stoma in place LLQ GENITOURINARY: Without palpable bladder distension. Avendano catheter in place. MUSCULOSKELETAL: Extremities without clubbing, cyanosis, RLE is mildly edematous, all the was to the knee Well healed incision from periferal bypass Sp TMA R foot, remainder of the foot is erythematous Incision is broken down with marked gangrenous changes; + purulent drainage L foot with non palpable pedal pulse, Ulcer on plantar aspect of L hallux with fibrinous dc - looks deeper this time No joint tenderness or effusion noted. No calf tenderness. No mottling or clubbing. LYMPHATICS: No palpable cervical or supraclavicular adenopathy. NEUROLOGICAL: Awake and alert. Motor and sensory grossly within normal limits. Follows commands. Normal speech Moves all extremities. PSYCHIATRIC: No obvious anxiety/depression. no apparent hallucinations or other psychotic thought process. Laboratory Laboratory Tests Test 10/25/16 10/25/16 10/25/16 11:55 12:31 13:46 White Blood Count 9.4 9.5 Red Blood Count 2.37 2.59 Hemoglobin 6.3 7.0 Hematocrit 19.9 21.8 Mean Corpuscular Volume 84.0 84.3 Mean Corpuscular Hemoglobin 26.7 27.1 Mean Corpuscular Hemoglobin 31.8 32.1 Concent Red Cell Distribution Width 17.3 17.0 Platelet Count 262 254 Mean Platelet Volume 6.7 6.6 Neutrophils (%) (Auto) 71.6 Lymphocytes (%) (Auto) 14.2 Monocytes (%) (Auto) 10.5 Eosinophils (%) (Auto) 2.9 Basophils (%) (Auto) 0.8 Neutrophils # (Auto) 6.7 Lymphocytes # (Auto) 1.3 Monocytes # (Auto) 1.0 Eosinophils # (Auto) 0.3 Basophils # (Auto) 0.1 CBC Comment DIFF FINAL Differential Comment Erythrocyte Sedimentation Rate GREATER THAN 140 Sodium Level 138 Potassium Level 4.4 Chloride Level 106 Carbon Dioxide Level 26.8 Anion Gap 5 Blood Urea Nitrogen 28 Creatinine 1.33 Estimat Glomerular Filtration 41 Rate Random Glucose 97 Calcium Level 8.0 Total Bilirubin 0.2 Aspartate Amino Transf 86 (AST/SGOT) Alanine Aminotransferase 34 (ALT/SGPT) Alkaline Phosphatase 59 C-Reactive Protein 11.00 Total Protein 7.1 Albumin 2.1 Blood Type A POSITIVE Antibody Screen NEGATIVE Crossmatch Leukocyte-Reduced Red Blood Cells Blood Bank Comment Date/Time Procedure Status Source Growth 10/25/16 11:56 Aerobic Blood Culture Received Blood Peripheral Pending 10/25/16 11:56 Anaerobic Blood Culture Received Blood Peripheral Pending Result Diagram: 10/25/16 1231 10/25/16 1155 Imaging Last Impressions Foot X-Ray 10/25/16 0000 Signed Impressions: Service Date/Time: Tuesday, October 25, 2016 11:29 - CONCLUSION: 1. Transmetatarsal amputation. Non-corticated distal edge of the second cuneiform is stable and reflects the postsurgical changes. 2. Postoperative air in the stomach tissue shows improvement but there is still some persistent air in the distal aspect of the stump which could represent a developing cellulitis. Please correlate with clinical presentation. Sandeep Velázquez MD Foot MRI 10/25/16 0000 Signed Impressions: Service Date/Time: Tuesday, October 25, 2016 14:13 - CONCLUSION: Still significant fluid along the distal amputated margins of the middle, medial, and lateral cuneiform bones concerning for some residual fluid, possible abscess. There is also marked decreased enhancement of the soft tissues in the distal lateral portion of the amputation, correlate for tissue viability. Please see above. Saran Kenyon MD Assessment and Plan Assessment and Plan MRSA DFI, osteo R foot sp TMA in the settings of PVD - failed amputation Severe unreconstructable PVD Multiple med prob HIgh grade PCN allergy (anaphylaxis) - start vancomycin -start azactam, flagyl - FU P clx untill final Discussed Condition With Fiona Chambers MD Oct 25, 2016 23:08
[2016-10-25] MEDS ORDERED: Vancomycin Consult Pharmacy 1 EA IV SCH (23:15)
[2016-10-26] VITALS (8 sets, daily range): BP systolic 83–194; BP diastolic 47–85; PULSE 53–90; RESP 15–19; TEMP 96.7–98.3; O2SAT 92–100
[2016-10-26] MEDS ORDERED: VANCOMYCIN 1,000 MG/NS 250 ML IV ONE ×2
[2016-10-26] MEDS: HYDROmorphone HCL PF 1 MG/ML VIAL IV PUSH PRN ×6 (01:41→23:19)
[2016-10-26] MEDS: metroNIDAZOLE 500 MG INJ 100 ML IV SCH ×4 (01:42→23:18)
[2016-10-26] MEDS: AZTREONAM INJ 2,000 MG in SODIUM CHLORIDE 0.9% INJ 100 ML IV SCH ×4 (03:20→23:19)
[2016-10-26] MEDS: GABAPENTIN 300 MG CAP PO SCH ×4 (04:53→23:18)
[2016-10-26] MEDS: INSULIN ASPART SUPPLEMENTAL SCALE SQ SCH ×4 (05:09→20:13)
[2016-10-26 05:20] LABS: AUTOMATED NEUTROPHIL # 6.2 TH/MM3 (1.8-7.7); BASOPHIL # 0.1 TH/MM3 (0-0.2); BASOPHIL % 0.9 % (0.0-2.0); EOSINOPHIL # 0.3 TH/MM3 (0-0.4); EOSINOPHIL % 3.3 % (0.0-4.0); HEMO FLAGS DIFF FINAL; LYMPH % 17.9 % (9.0-44.0); LYMPHOCYTE # 1.6 TH/MM3 (1.0-4.8); MEAN CELL VOLUME 84.1 FL (80.0-100.0); MEAN CORPUSCULAR HEMOGLOBIN 27.2 PG (27.0-34.0); MEAN CORPUSCULAR HGB CONC 32.4 % (32.0-36.0); MONO % 10.9 % (0.0-8.0); PLATELET COUNT 280 TH/MM3 (150-450); RED BLOOD COUNT 3.33 MIL/MM3 (4.00-5.30); RED CELL DISTRIBUTION WIDTH 17.3 % (11.6-17.2); WHITE BLOOD COUNT 9.2 TH/MM3 (4.0-11.0)
[2016-10-26 05:44] LABS: ANION GAP 8 MEQ/L (5-15); BICARBONATE 26.5 MEQ/L (21.0-32.0); BLOOD UREA NITROGEN 19 MG/DL (7-18); CHLORIDE 108 MEQ/L (98-107); GLOMERULAR FILTRATION RATE 40 ML/MIN (>89); POTASSIUM 4.3 MEQ/L (3.5-5.1); SODIUM (NA) 142 MEQ/L (136-145); TRANSFERRIN IRON PROFILE 195 MG/DL (200-360)
[2016-10-26 05:47] LABS: FERRITIN 100 NG/ML (8-252)
[2016-10-26] MEDS: oxyCODONE/ACETAMINOPHEN 7.5 MG/325 MG TAB PO PRN ×3 (06:09→21:54)
[2016-10-26] MEDS: SODIUM CHLORIDE 0.9% FLUSH 10 ML FLUSH IVF PRN (07:51)
--- NOTE | 2016-10-26 08:41 | HHI.PR ---
Subjective Remarks Follow up for PVD, right foot stump infection, probable GI bleed. Ms. Finnegan is doing well. She complains of significant pain although she appears to be comfortable. Her BP dropped after dressing change. Later on, repeat BP was much improved. I went back to see the patient - she was asymptomatic when her BP was low. Objective Vitals Vital Signs Date Time Temp Pulse Resp B/P Pulse Ox O2 Delivery O2 Flow Rate FiO2 10/26/16 04:01 97.8 90 18 162/85 96 10/26/16 00:10 97.8 80 16 164/80 97 10/25/16 20:34 97.4 78 18 156/69 97 10/25/16 17:25 98.0 77 17 180/80 98 10/25/16 17:01 96.6 17 171/74 99 10/25/16 16:00 96.6 73 17 171/74 99 10/25/16 10:58 98.6 80 17 104/51 95 I/O 10/25/16 10/25/16 10/25/16 10/26/16 10/26/16 10/26/16 07:00 15:00 23:00 07:00 15:00 23:00 Intake Total 767 ml 842 ml Output Total 400 ml 1000 ml Balance 367 ml -158 ml Intake Oral 480 ml 480 ml IV Total 2 ml 362 ml Packed Cells 285 ml Output Urine Total 400 ml 1000 ml Result Diagram: 10/26/16 0510 10/26/16 0510 Imaging Last Impressions Foot X-Ray 10/25/16 0000 Signed Impressions: Service Date/Time: Tuesday, October 25, 2016 11:29 - CONCLUSION: 1. Transmetatarsal amputation. Non-corticated distal edge of the second cuneiform is stable and reflects the postsurgical changes. 2. Postoperative air in the stomach tissue shows improvement but there is still some persistent air in the distal aspect of the stump which could represent a developing cellulitis. Please correlate with clinical presentation. Sandeep Velázquez MD Foot MRI 10/25/16 0000 Signed Impressions: Service Date/Time: Tuesday, October 25, 2016 14:13 - CONCLUSION: Still significant fluid along the distal amputated margins of the middle, medial, and lateral cuneiform bones concerning for some residual fluid, possible abscess. There is also marked decreased enhancement of the soft tissues in the distal lateral portion of the amputation, correlate for tissue viability. Please see above. Saran Kenyon MD Objective Remarks GENERAL: AOx3, NAD. SKIN: Warm and dry. HEAD: Normocephalic. EYES: No scleral icterus. No injection or drainage. NECK: Supple, trachea midline. No JVD or lymphadenopathy. CARDIOVASCULAR: Regular rate and rhythm without murmurs, gallops, or rubs. RESPIRATORY: Breath sounds equal bilaterally. No accessory muscle use. GASTROINTESTINAL: Abdomen soft, non-tender, nondistended. MUSCULOSKELETAL: No cyanosis, or edema. Right foot MAGAN wrapped. BACK: Nontender without obvious deformity. No CVA tenderness. Procedures None. A/P Problem List: (1) Diabetic foot infection ICD Code: E11.69 Status: Acute (2) DM (diabetes mellitus) ICD Code: E11.9 Status: Chronic (3) A-fib ICD Code: I48.91 Status: Chronic (4) HTN (hypertension) ICD Code: I10 Status: Chronic Assessment and Plan Ms. Finnegan is a 60 year old female with a history of right sided transmetatarsal amputation now presents with gangrenous tissue with erythema extending up. She was also found to have Hgb of 7.0 requiring one unit of PRBCs. Vascular surgery (Dr. Cooper) evaluated patient and determined that patient may need below knee amputation. - Severe peripheral vascular disease - Right foot infection with gangrenous tissue - Dr. Wakefield evaluated patient and recommends right BKA - Will start patient on Vancomycin and Aztreonam and Flagyl per ID. Previous cx grew MRSA - Percocet and Dilaudid IV PRN for pain management. Patient may have physical dependence to narcotics. - Probable acute GI bleed anemia - one unit of PRBCs per ED. - Continue Protonix 40mg BID. - Colorectal surgery following. - Atrial fibrillation - Continue Metoprolol 25mg BID, Amiodarone 200mg Qday. - No anti-coagulation at this point. Hold Aspirin in light of GI bleed. - Diabetes mellitus - Diabetic neuropathy - Blood glucose less than 100 on admission. - continue Levemir 5 units QHS and sliding scale insulin. - CAD s/p CABG, stents - Hold Aspirin for now. Continue Metoprolol 25mg BID, Losartan 50mg Qday, Imdur 30mg Qday - Continue Lipitor 40mg Qday. Full code. SCDs for now. Pharmacological DVT prophylaxis contraindicated due to acute GI bleed. Darian Vela DO Oct 26, 2016 08:41
[2016-10-26] MEDS: CHOLECALCIFEROL (VIT D3) 5000 UNIT CAP PO SCH (08:59)
[2016-10-26] MEDS: AMIODARONE 200 MG TAB PO SCH (08:59)
[2016-10-26] MEDS: LOSARTAN 50 MG TAB PO SCH (08:59)
[2016-10-26] MEDS: ISOSORBIDE MONONITRATE 30 MG TAB PO SCH (08:59)
[2016-10-26] MEDS: amLODIPine BESYLATE 5 MG TAB PO SCH ×2 (09:00→10:57)
[2016-10-26] MEDS: METOPROLOL TARTRATE 25 MG TAB PO SCH ×2 (09:00→20:07)
[2016-10-26] MEDS ORDERED: ASPIRIN 81 MG CHEW TAB CHEW SCH (09:00)
[2016-10-26] MEDS: PANTOPRAZOLE SOD 40 MG DELAYED RELEASE TAB PO SCH ×2 (09:00→20:07)
[2016-10-26] MEDS: DULoxetine HCl DR 30 MG CAP PO SCH (09:00)
[2016-10-26] MEDS ORDERED: HYDROmorphone HCL PF 1 MG/ML VIAL IV PUSH PRN (10:00)
--- NOTE | 2016-10-26 11:18 | PD.CONS ---
History of Present Illness Service Podiatry Consult Requested By Reason for Consult Right foot TMA infection Primary Care Physician Alonso Robins MD Diagnoses: (1) Diabetic foot infection History of Present Illness Pt well known to practice. Right foot TMA a few weeks ago with dusky tissue with risk of kidney failure due to assisted PICC. Admitted to hospital for medical managment, iv antibiotics, vascular studies and for right foot tma infection and necrosis. Pt seen in offriday and at bedside Sat morning. Pt is groggy but alert and oriented. Past Family Social History Allergies: Coded Allergies: Bactrim (Verified Allergy, Severe, Shortness of Breath, 10/25/16) Iodine (Verified Allergy, Severe, THROAT SWELLS, 10/25/16) pt states does not have a allergy to Iodine 01/11/16 JF Penicillin (Verified Allergy, Severe, STOPPED BREATHING, 10/25/16) Shellfish (Verified Allergy, Severe, THROAT SWELLS, 10/25/16) *MDRO Multi-Drug Resistant Organism (Verified Adverse Reaction, Unknown, ) 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 (foot)-10/02/16 Physical Exam Vital Signs Vital Signs Date Time Temp Pulse Resp B/P Pulse Ox O2 Delivery O2 Flow Rate FiO2 10/26/16 10:43 94 Nasal Cannula 4.00 10/26/16 08:00 97.8 80 17 194/82 92 10/26/16 04:01 97.8 90 18 162/85 96 10/26/16 00:10 97.8 80 16 164/80 97 10/25/16 20:34 97.4 78 18 156/69 97 10/25/16 17:25 98.0 77 17 180/80 98 10/25/16 17:01 96.6 17 171/74 99 10/25/16 16:00 96.6 73 17 171/74 99 Physical Exam GENERAL: This is a well-nourished, well-developed patient, in no apparent distress. SKIN: No rashes, ecchymoses or lesions. Cool and dry. HEAD: Atraumatic. Normocephalic. No temporal or scalp tenderness. EYES: Pupils equal round and reactive. Extraocular motions intact. No scleral icterus. No injection or drainage. ENT: Nose without bleeding, purulent drainage or septal hematoma. Throat without erythema, tonsillar hypertrophy or exudate. Uvula midline. Airway patent. NECK: Trachea midline. No JVD or lymphadenopathy. Supple, nontender, no meningeal signs. CARDIOVASCULAR: Regular rate and rhythm without murmurs, gallops, or rubs. RESPIRATORY: Clear to auscultation. Breath sounds equal bilaterally. No wheezes , rales, or rhonchi. GASTROINTESTINAL: Abdomen soft, non-tender, nondistended. No hepato-splenomegaly , or palpable masses. No guarding. MUSCULOSKELETAL: Extremities without clubbing, cyanosis, or edema. No joint tenderness, effusion, or edema noted. No calf tenderness. Negative Homans sign bilaterally. NEUROLOGICAL: Awake and alert. Cranial nerves II through XII intact. Motor and sensory grossly within normal limits. Five out of 5 muscle strength in all muscle groups. Normal speech. Laboratory Laboratory Tests Test 10/25/16 10/25/16 10/25/16 10/26/16 11:55 12:31 13:46 05:10 White Blood Count 9.4 9.5 9.2 Red Blood Count 2.37 2.59 3.33 Hemoglobin 6.3 7.0 9.1 Hematocrit 19.9 21.8 28.0 Mean Corpuscular Volume 84.0 84.3 84.1 Mean Corpuscular Hemoglobin 26.7 27.1 27.2 Mean Corpuscular Hemoglobin 31.8 32.1 32.4 Concent Red Cell Distribution Width 17.3 17.0 17.3 Platelet Count 262 254 280 Mean Platelet Volume 6.7 6.6 6.4 Neutrophils (%) (Auto) 71.6 67.0 Lymphocytes (%) (Auto) 14.2 17.9 Monocytes (%) (Auto) 10.5 10.9 Eosinophils (%) (Auto) 2.9 3.3 Basophils (%) (Auto) 0.8 0.9 Neutrophils # (Auto) 6.7 6.2 Lymphocytes # (Auto) 1.3 1.6 Monocytes # (Auto) 1.0 1.0 Eosinophils # (Auto) 0.3 0.3 Basophils # (Auto) 0.1 0.1 CBC Comment DIFF FINAL DIFF FINAL Differential Comment Erythrocyte Sedimentation Rate GREATER THAN 140 Sodium Level 138 142 Potassium Level 4.4 4.3 Chloride Level 106 108 Carbon Dioxide Level 26.8 26.5 Anion Gap 5 8 Blood Urea Nitrogen 28 19 Creatinine 1.33 1.34 Estimat Glomerular Filtration 41 40 Rate Random Glucose 97 93 Calcium Level 8.0 8.7 Total Bilirubin 0.2 Aspartate Amino Transf 86 (AST/SGOT) Alanine Aminotransferase 34 (ALT/SGPT) Alkaline Phosphatase 59 C-Reactive Protein 11.00 Total Protein 7.1 Albumin 2.1 Blood Type A POSITIVE Antibody Screen NEGATIVE Crossmatch Leukocyte-Reduced Red Blood Cells Blood Bank Comment Iron Level 35 Total Iron Binding Capacity 273 Percent Iron Saturation 12.8 Ferritin 100 Date/Time Procedure Status Source Growth 10/25/16 11:56 Aerobic Blood Culture Received Blood Peripheral Pending 10/25/16 11:56 Anaerobic Blood Culture Received Blood Peripheral Pending Result Diagram: 10/26/16 0510 10/26/16 0510 Imaging MRI RLE shows fluid collection around distal tma stump JOSE RLE is .59 Course RLE non palpable pulses Redness around TMA site not to ankle Moderate foot edema No sensation Necrosis and loose sutures around incision site with dehiscence deep with wounds probing to bone Assessment and Plan Assessment and Plan R foot DM infection post op infection from TMA with severe PVD/small vessel disease -Under sterile technique the right foot was debrided at bedside with patient consent Removal of sutures and necrotic tissue with minimal to no bleeding Betadine wet to dry was placed after deep culture swab -Dr. Cooper recommends BKA due to PVD and level of current amputation Will await second opinion for possibility for revasc vs BKA Pt is allergic to wound vac so no chance for I and D with wound vac Will await second opinion about BKA, if no additional blood flow can be provided to the foot we could explore HBO but options are very limited in saving the foot Will continue to follow Thanks, José Luis Olmedo DPHunter Oct 26, 2016 11:18
--- NOTE | 2016-10-26 11:25 | HHI.PR ---
Subjective Remarks Anemia, possible GI Bleed Pt reports no significant blood Objective Vital Signs Date Time Temp Pulse Resp B/P Pulse Ox O2 Delivery O2 Flow Rate FiO2 10/26/16 10:43 94 Nasal Cannula 4.00 10/26/16 08:00 97.8 80 17 194/82 92 10/26/16 04:01 97.8 90 18 162/85 96 10/26/16 00:10 97.8 80 16 164/80 97 10/25/16 20:34 97.4 78 18 156/69 97 10/25/16 17:25 98.0 77 17 180/80 98 10/25/16 17:01 96.6 17 171/74 99 10/25/16 16:00 96.6 73 17 171/74 99 I/O 10/25/16 10/25/16 10/25/16 10/26/16 10/26/16 10/26/16 07:00 15:00 23:00 07:00 15:00 23:00 Intake Total 767 ml 842 ml Output Total 400 ml 1000 ml Balance 367 ml -158 ml Intake Oral 480 ml 480 ml IV Total 2 ml 362 ml Packed Cells 285 ml Output Urine Total 400 ml 1000 ml Result Diagram: 10/26/16 0510 10/26/16 0510 Objective Remarks Abdomen soft, nontender, nondistended Hernia Assessment and Plan Assessment and Plan Hgb up after transfusion Juanita Emery MD Oct 26, 2016 11:25
--- NOTE | 2016-10-26 12:36 | PD.CAR.PN ---
CVT Progress Note Subjective/Hospital Course: 61 year-old female with severe peripheral vascular disease good inflow from the top however small vessel disease below the level of the knee distal to trifurcation Somebody tried to do some sort of bypass in another hospital and this is now occluded as well. Patient recently had transmetatarsal amputation of the right foot and the site is gangrenous with ascending cellulitis in the area Blood supply simply insufficient to make this all area heal A she will need below-knee amputation on the right She'll be scheduled for early next week but first let sort out the anemia and possible questionable GI bleed Full consult dictated Will follow the patient Thanks Kenneth 10/26/16 Patient with the right TMA amputation and gangrene of the foot with cellulitis Patient will receive antibiotics for next few days and I will take her early next week for below-knee amputation Have discussed this with the patient initially agrees to the procedure Objective: Vital Signs Date Time Temp Pulse Resp B/P Pulse Ox O2 Delivery O2 Flow Rate FiO2 10/26/16 10:43 94 Nasal Cannula 4.00 10/26/16 08:00 97.8 80 17 194/82 92 10/26/16 04:01 97.8 90 18 162/85 96 10/26/16 00:10 97.8 80 16 164/80 97 10/25/16 20:34 97.4 78 18 156/69 97 10/25/16 17:25 98.0 77 17 180/80 98 10/25/16 17:01 96.6 17 171/74 99 10/25/16 16:00 96.6 73 17 171/74 99 Labs: Laboratory Tests Test 10/26/16 05:10 White Blood Count 9.2 TH/MM3 (4.0-11.0) Red Blood Count 3.33 MIL/MM3 (4.00-5.30) Hemoglobin 9.1 GM/DL (11.6-15.3) Hematocrit 28.0 % (35.0-46.0) Mean Corpuscular Volume 84.1 FL (80.0-100.0) Mean Corpuscular Hemoglobin 27.2 PG (27.0-34.0) Mean Corpuscular Hemoglobin 32.4 % Concent (32.0-36.0) Red Cell Distribution Width 17.3 % (11.6-17.2) Platelet Count 280 TH/MM3 (150-450) Mean Platelet Volume 6.4 FL (7.0-11.0) Neutrophils (%) (Auto) 67.0 % (16.0-70.0) Lymphocytes (%) (Auto) 17.9 % (9.0-44.0) Monocytes (%) (Auto) 10.9 % (0.0-8.0) Eosinophils (%) (Auto) 3.3 % (0.0-4.0) Basophils (%) (Auto) 0.9 % (0.0-2.0) Neutrophils # (Auto) 6.2 TH/MM3 (1.8-7.7) Lymphocytes # (Auto) 1.6 TH/MM3 (1.0-4.8) Monocytes # (Auto) 1.0 TH/MM3 (0-0.9) Eosinophils # (Auto) 0.3 TH/MM3 (0-0.4) Basophils # (Auto) 0.1 TH/MM3 (0-0.2) CBC Comment DIFF FINAL Differential Comment Sodium Level 142 MEQ/L (136-145) Potassium Level 4.3 MEQ/L (3.5-5.1) Chloride Level 108 MEQ/L (98-107) Carbon Dioxide Level 26.5 MEQ/L (21.0-32.0) Anion Gap 8 MEQ/L (5-15) Blood Urea Nitrogen 19 MG/DL (7-18) Creatinine 1.34 MG/DL (0.50-1.00) Estimat Glomerular Filtration 40 ML/MIN (>89) Rate Random Glucose 93 MG/DL (74-106) Calcium Level 8.7 MG/DL (8.5-10.1) Iron Level 35 MCG/DL (50-170) Total Iron Binding Capacity 273 MCG/DL (250-450) Percent Iron Saturation 12.8 % (20-50) Ferritin 100 NG/ML (8-252) Result Diagram: 10/26/16 0510 10/26/16 0510 Chantale Wakefield MD Oct 26, 2016 12:36
[2016-10-26] MEDS: ATORVASTATIN 40 MG TAB PO SCH (20:07)
[2016-10-26] MEDS: MIRTAZAPINE 15 MG TAB PO SCH (20:07)
[2016-10-26] MEDS: MONTELUKAST SODIUM 10 MG TAB PO SCH (20:07)
[2016-10-26] MEDS: INSULIN DETEMIR 100 UNITS/ML VIAL SQ SCH (20:13)
[2016-10-27] VITALS (7 sets, daily range): BP systolic 94–190; BP diastolic 50–90; PULSE 50–91; RESP 16–18; TEMP 95.7–97.8; O2SAT 93–100
[2016-10-27] MEDS: VANCOMYCIN 1,000 MG/NS 250 ML IV SCH ×2 (01:31)
[2016-10-27] MEDS: HYDROmorphone HCL PF 1 MG/ML VIAL IV PUSH PRN ×7 (02:15→22:39)
[2016-10-27] MEDS: GABAPENTIN 300 MG CAP PO SCH ×4 (04:12→22:34)
[2016-10-27] MEDS: INSULIN ASPART SUPPLEMENTAL SCALE SQ SCH ×4 (04:16→20:09)
[2016-10-27] MEDS: oxyCODONE/ACETAMINOPHEN 7.5 MG/325 MG TAB PO PRN ×5 (04:16→23:45)
[2016-10-27] MEDS: SODIUM CHLORIDE 0.9% FLUSH 10 ML FLUSH IVF PRN (05:18)
[2016-10-27] MEDS: metroNIDAZOLE 500 MG INJ 100 ML IV SCH ×3 (07:55→22:34)
[2016-10-27] MEDS: AZTREONAM INJ 2,000 MG in SODIUM CHLORIDE 0.9% INJ 100 ML IV SCH ×3 (07:55→23:45)
[2016-10-27] MEDS: ISOSORBIDE MONONITRATE 30 MG TAB PO SCH (07:56)
[2016-10-27] MEDS: PANTOPRAZOLE SOD 40 MG DELAYED RELEASE TAB PO SCH ×2 (07:56→19:59)
[2016-10-27] MEDS: DULoxetine HCl DR 30 MG CAP PO SCH (07:56)
[2016-10-27] MEDS: CHOLECALCIFEROL (VIT D3) 5000 UNIT CAP PO SCH (07:56)
[2016-10-27] MEDS: AMIODARONE 200 MG TAB PO SCH (07:56)
[2016-10-27] MEDS: amLODIPine BESYLATE 5 MG TAB PO SCH (07:57)
[2016-10-27] MEDS: METOPROLOL TARTRATE 25 MG TAB PO SCH ×2 (07:58→21:00)
[2016-10-27] MEDS: LOSARTAN 50 MG TAB PO SCH (07:59)
--- NOTE | 2016-10-27 10:55 | PD.CAR.PN ---
CVT Progress Note Subjective/Hospital Course: 61 year-old female with severe peripheral vascular disease good inflow from the top however small vessel disease below the level of the knee distal to trifurcation Somebody tried to do some sort of bypass in another hospital and this is now occluded as well. Patient recently had transmetatarsal amputation of the right foot and the site is gangrenous with ascending cellulitis in the area Blood supply simply insufficient to make this all area heal A she will need below-knee amputation on the right She'll be scheduled for early next week but first let sort out the anemia and possible questionable GI bleed Full consult dictated Will follow the patient Thanks J 10/26/16 Patient with the right TMA amputation and gangrene of the foot with cellulitis Patient will receive antibiotics for next few days and I will take her early next week for below-knee amputation Have discussed this with the patient initially agrees to the procedure 10/27/16 Swelling of the leg is significantly decreased since the introduction of antibiotics and cellulitis has receded Necrotic forefoot with visible bone at transmetatarsal level Patient will undergo below-knee amputation early coming week Dr. Wheeler will render second opinion tomorrow Objective: Vital Signs Date Time Temp Pulse Resp B/P Pulse Ox O2 Delivery O2 Flow Rate FiO2 10/27/16 09:18 140/75 10/27/16 08:00 97.7 91 16 190/90 93 10/27/16 00:00 97.8 68 17 152/70 100 10/26/16 20:00 96.9 60 19 103/51 97 10/26/16 16:00 98.3 67 18 133/63 92 10/26/16 13:20 135/64 10/26/16 12:00 96.7 53 15 83/47 100 Labs: Laboratory Tests Test 10/27/16 04:45 Creatinine 1.20 MG/DL (0.50-1.00) Estimat Glomerular Filtration 46 ML/MIN (>89) Rate Result Diagram: 10/26/16 0510 10/27/16 0445 Chantale Wakefield MD Oct 27, 2016 10:55
--- NOTE | 2016-10-27 12:07 | HHI.PR ---
Subjective Remarks Anemia, possible GI Bleed Pt reports no blood with BM yesterday Objective Vital Signs Date Time Temp Pulse Resp B/P Pulse Ox O2 Delivery O2 Flow Rate FiO2 10/27/16 09:18 140/75 10/27/16 08:00 97.7 91 16 190/90 93 10/27/16 00:00 97.8 68 17 152/70 100 10/26/16 20:00 96.9 60 19 103/51 97 10/26/16 16:00 98.3 67 18 133/63 92 10/26/16 13:20 135/64 I/O 10/26/16 10/26/16 10/26/16 10/27/16 10/27/16 10/27/16 07:00 15:00 23:00 07:00 15:00 23:00 Intake Total 842 ml 360 ml 687 ml 1148 ml Output Total 1000 ml 700 ml 1000 ml 1600 ml Balance -158 ml -340 ml -313 ml -452 ml Intake Oral 480 ml 360 ml 480 ml 240 ml IV Total 362 ml 207 ml 908 ml Output Urine Total 1000 ml 700 ml 1000 ml 1600 ml # Bowel Movements 0 1 Result Diagram: 10/26/16 0510 10/27/16 0445 Objective Remarks Abdomen soft, nontender, nondistended Hernia Assessment and Plan Assessment and Plan Hgb stable No visible bleeding Juanita Emery MD Oct 27, 2016 12:07
--- NOTE | 2016-10-27 12:38 | HHI.PR ---
Subjective Remarks Follow up for PVD, right foot stump infection, probable GI bleed. Ms. Finnegan is doing well. She requests that we increase her pain medications. However, she appears to be comfortable and per RN gets really drowsy after pain medication. No fever, chills. Objective Vitals Vital Signs Date Time Temp Pulse Resp B/P Pulse Ox O2 Delivery O2 Flow Rate FiO2 10/27/16 12:00 96.2 72 16 113/55 97 10/27/16 09:18 140/75 10/27/16 08:00 97.7 91 16 190/90 93 10/27/16 00:00 97.8 68 17 152/70 100 10/26/16 20:00 96.9 60 19 103/51 97 10/26/16 16:00 98.3 67 18 133/63 92 10/26/16 13:20 135/64 I/O 10/26/16 10/26/16 10/26/16 10/27/16 10/27/16 10/27/16 07:00 15:00 23:00 07:00 15:00 23:00 Intake Total 842 ml 360 ml 687 ml 1148 ml Output Total 1000 ml 700 ml 1000 ml 1600 ml Balance -158 ml -340 ml -313 ml -452 ml Intake Oral 480 ml 360 ml 480 ml 240 ml IV Total 362 ml 207 ml 908 ml Output Urine Total 1000 ml 700 ml 1000 ml 1600 ml # Bowel Movements 0 1 Result Diagram: 10/26/16 0510 10/27/16 0445 Imaging Last Impressions Foot X-Ray 10/25/16 0000 Signed Impressions: Service Date/Time: Tuesday, October 25, 2016 11:29 - CONCLUSION: 1. Transmetatarsal amputation. Non-corticated distal edge of the second cuneiform is stable and reflects the postsurgical changes. 2. Postoperative air in the stomach tissue shows improvement but there is still some persistent air in the distal aspect of the stump which could represent a developing cellulitis. Please correlate with clinical presentation. Sandeep Velázquez MD Foot MRI 10/25/16 0000 Signed Impressions: Service Date/Time: Tuesday, October 25, 2016 14:13 - CONCLUSION: Still significant fluid along the distal amputated margins of the middle, medial, and lateral cuneiform bones concerning for some residual fluid, possible abscess. There is also marked decreased enhancement of the soft tissues in the distal lateral portion of the amputation, correlate for tissue viability. Please see above. Saran Kenyon MD Objective Remarks GENERAL: AOx3, NAD. SKIN: Warm and dry. HEAD: Normocephalic. EYES: No scleral icterus. No injection or drainage. NECK: Supple, trachea midline. No JVD or lymphadenopathy. CARDIOVASCULAR: Regular rate and rhythm without murmurs, gallops, or rubs. RESPIRATORY: Breath sounds equal bilaterally. No accessory muscle use. GASTROINTESTINAL: Abdomen soft, non-tender, nondistended. MUSCULOSKELETAL: No cyanosis, or edema. Right foot MAGAN wrapped. BACK: Nontender without obvious deformity. No CVA tenderness. Procedures None. A/P Problem List: (1) Diabetic foot infection ICD Code: E11.69 Status: Acute (2) DM (diabetes mellitus) ICD Code: E11.9 Status: Chronic (3) A-fib ICD Code: I48.91 Status: Chronic (4) HTN (hypertension) ICD Code: I10 Status: Chronic Assessment and Plan Ms. Finnegan is a 60 year old female with a history of right sided transmetatarsal amputation now presents with gangrenous tissue with erythema extending up. She was also found to have Hgb of 7.0 requiring one unit of PRBCs. Vascular surgery (Dr. Cooper) evaluated patient and determined that patient may need below knee amputation. - Severe peripheral vascular disease - Right foot infection with gangrenous tissue - Dr. Wakefield evaluated patient and recommends right BKA - Will start patient on Vancomycin and Aztreonam and Flagyl per ID. Previous cx grew MRSA - Percocet and Dilaudid IV PRN for pain management. Patient may have physical dependence to narcotics. - Possible BKA on 10/28/2016. - Probable acute GI bleed anemia - one unit of PRBCs per ED. - Continue Protonix 40mg BID. - Colorectal surgery following. - Atrial fibrillation - Continue Metoprolol 25mg BID, Amiodarone 200mg Qday. - No anti-coagulation at this point. Hold Aspirin in light of GI bleed. - Diabetes mellitus - Diabetic neuropathy - Blood glucose less than 100 on admission. - continue Levemir 5 units QHS and sliding scale insulin. - CAD s/p CABG, stents - Hold Aspirin for now. Continue Metoprolol 25mg BID, Losartan 50mg Qday, Imdur 30mg Qday - Continue Lipitor 40mg Qday. Full code. SCDs for now. Pharmacological DVT prophylaxis contraindicated due to acute GI bleed. Darian Vela DO Oct 27, 2016 12:38 pm
[2016-10-27] MEDS: MONTELUKAST SODIUM 10 MG TAB PO SCH (19:59)
[2016-10-27] MEDS: MIRTAZAPINE 15 MG TAB PO SCH (20:00)
[2016-10-27] MEDS: ATORVASTATIN 40 MG TAB PO SCH (20:00)
[2016-10-27] MEDS: INSULIN DETEMIR 100 UNITS/ML VIAL SQ SCH (20:01)
[2016-10-28] VITALS (9 sets, daily range): BP systolic 83–195; BP diastolic 54–88; PULSE 60–98; RESP 17–20; TEMP 95.8–98.5; O2SAT 94–100
[2016-10-28] MEDS: VANCOMYCIN 1,000 MG/NS 250 ML IV SCH ×2 (01:48)
[2016-10-28] MEDS: HYDROmorphone HCL PF 1 MG/ML VIAL IV PUSH PRN ×4 (01:48→18:00)
[2016-10-28] MEDS: GABAPENTIN 300 MG CAP PO SCH ×4 (04:46→21:49)
[2016-10-28] MEDS: INSULIN ASPART SUPPLEMENTAL SCALE SQ SCH ×4 (04:53→21:46)
[2016-10-28] MEDS: oxyCODONE/ACETAMINOPHEN 7.5 MG/325 MG TAB PO PRN ×3 (05:42→21:45)
[2016-10-28] MEDS: CHOLECALCIFEROL (VIT D3) 5000 UNIT CAP PO SCH (07:58)
[2016-10-28] MEDS: METOPROLOL TARTRATE 25 MG TAB PO SCH ×2 (07:58→21:44)
[2016-10-28] MEDS: DULoxetine HCl DR 30 MG CAP PO SCH (07:58)
[2016-10-28] MEDS: ISOSORBIDE MONONITRATE 30 MG TAB PO SCH (07:58)
[2016-10-28] MEDS: amLODIPine BESYLATE 5 MG TAB PO SCH (07:58)
[2016-10-28] MEDS: PANTOPRAZOLE SOD 40 MG DELAYED RELEASE TAB PO SCH ×2 (07:59→21:45)
[2016-10-28] MEDS: metroNIDAZOLE 500 MG INJ 100 ML IV SCH ×2 (07:59→16:38)
[2016-10-28] MEDS: AMIODARONE 200 MG TAB PO SCH (07:59)
[2016-10-28] MEDS: LOSARTAN 50 MG TAB PO SCH (07:59)
--- NOTE | 2016-10-28 08:56 | HHI.PR ---
Subjective Remarks Follow up for PVD, right foot stump infection, probable GI bleed. Ms. Finnegan is doing well. She again states she is in a lot of pain. She requests higher dose of Dilaudid. No fever, chills. Objective Vitals Vital Signs Date Time Temp Pulse Resp B/P Pulse Ox O2 Delivery O2 Flow Rate FiO2 10/28/16 04:00 97.4 91 17 182/86 97 10/28/16 00:00 95.8 66 17 192/77 100 10/27/16 22:03 94 21 10/27/16 20:00 95.7 50 18 96/54 99 10/27/16 16:00 97.0 54 16 94/50 97 10/27/16 12:00 96.2 72 16 113/55 97 10/27/16 09:18 140/75 I/O 10/27/16 10/27/16 10/27/16 10/28/16 10/28/16 10/28/16 07:00 15:00 23:00 07:00 15:00 23:00 Intake Total 1148 ml 300 ml 240 ml 698 ml Output Total 1600 ml 600 ml 800 ml 1300 ml Balance -452 ml -300 ml -560 ml -602 ml Intake Oral 240 ml 300 ml 240 ml 240 ml IV Total 908 ml 458 ml Output Urine Total 1600 ml 600 ml 800 ml 1300 ml # Bowel Movements 1 Result Diagram: 10/26/16 0510 10/28/16 0530 Imaging Last Impressions Foot X-Ray 10/25/16 0000 Signed Impressions: Service Date/Time: Tuesday, October 25, 2016 11:29 - CONCLUSION: 1. Transmetatarsal amputation. Non-corticated distal edge of the second cuneiform is stable and reflects the postsurgical changes. 2. Postoperative air in the stomach tissue shows improvement but there is still some persistent air in the distal aspect of the stump which could represent a developing cellulitis. Please correlate with clinical presentation. Sandeep Velázquez MD Foot MRI 10/25/16 0000 Signed Impressions: Service Date/Time: Tuesday, October 25, 2016 14:13 - CONCLUSION: Still significant fluid along the distal amputated margins of the middle, medial, and lateral cuneiform bones concerning for some residual fluid, possible abscess. There is also marked decreased enhancement of the soft tissues in the distal lateral portion of the amputation, correlate for tissue viability. Please see above. Saran Kenyon MD Objective Remarks GENERAL: AOx3, NAD. SKIN: Warm and dry. HEAD: Normocephalic. EYES: No scleral icterus. No injection or drainage. NECK: Supple, trachea midline. No JVD or lymphadenopathy. CARDIOVASCULAR: Regular rate and rhythm without murmurs, gallops, or rubs. RESPIRATORY: Breath sounds equal bilaterally. No accessory muscle use. GASTROINTESTINAL: Abdomen soft, non-tender, nondistended. MUSCULOSKELETAL: No cyanosis, or edema. Right foot MAGAN wrapped. BACK: Nontender without obvious deformity. No CVA tenderness. Procedures None. A/P Problem List: (1) Diabetic foot infection ICD Code: E11.69 Status: Acute (2) DM (diabetes mellitus) ICD Code: E11.9 Status: Chronic (3) A-fib ICD Code: I48.91 Status: Chronic (4) HTN (hypertension) ICD Code: I10 Status: Chronic Assessment and Plan Ms. Finnegan is a 60 year old female with a history of right sided transmetatarsal amputation now presents with gangrenous tissue with erythema extending up. She was also found to have Hgb of 7.0 requiring one unit of PRBCs. Vascular surgery (Dr. Cooper) evaluated patient and determined that patient may need below knee amputation. - Severe peripheral vascular disease - Right foot infection with gangrenous tissue - Dr. Wakefield evaluated patient and obtained second opinion from Dr. Wheeler who recommends limb salvage with debridement of the wound. - Currently on Vancomycin and Aztreonam and Flagyl per ID. Wound culture is growing Pseudomonas and GNR. D/w with Dr. Conner (ID). We will continue current abx regimen. - Switch Flagyl IV to PO. - Percocet and Dilaudid IV PRN for pain management. Patient may have physical dependence to narcotics. - Patient received 1.5mg of Dilaudid and blood pressure dropped. We will keep Dilaudid 1mg for now and will decrease frequency - Probable acute GI bleed anemia - one unit of PRBCs per ED. - Continue Protonix 40mg BID. - Colorectal surgery following. - Atrial fibrillation - Continue Metoprolol 25mg BID, Amiodarone 200mg Qday. - No anti-coagulation at this point. Hold Aspirin in light of GI bleed. - Diabetes mellitus - Diabetic neuropathy - Blood glucose less than 100 on admission. - continue Levemir 5 units QHS and sliding scale insulin. - CAD s/p CABG, stents - Hold Aspirin for now. Continue Metoprolol 25mg BID, Losartan 50mg Qday, Imdur 30mg Qday - Continue Lipitor 40mg Qday. Full code. SCDs for now. Pharmacological DVT prophylaxis contraindicated due to acute GI bleed. Darian Vela DO Oct 28, 2016 8:56 am
[2016-10-28] MEDS ORDERED: HYDROmorphone HCL PF 1 MG/ML VIAL IV PUSH ONE (09:00)
--- NOTE | 2016-10-28 09:16 | MB ---
cc: DAVID VELA ZACHERY P. DPM SUTTON, JAMES LEE, CHEE Y. MD JAZAREVIC, SLOBODAN MD DATE OF CONSULTATION October 28, 2016 HISTORY This 60-year-old hypertensive, type 2 diabetic female with chronic atrial fibrillation, has an infected right transmetatarsal amputation wound. Last year, she developed ischemic necrosis within her right great toe. She underwent digital amputation and describes a breakdown of the amputation wound. She was subsequently referred to Janette Sánchez MD, removed in May of 2016 performed right femoral-popliteal bypass. Subsequently, she underwent a transmetatarsal amputation last month. The amputation incision has developed necrosis along the plantar flap with associated cellulitis right foot and ankle. She was rehospitalized for treatment of post transmetatarsal amputation wound breakdown/cellulitis which is growing MRSA. Further historical details are documented in the admission summary by Dr. Vela. PAST MEDICAL HISTORY 1. Lupus. 2. Hypertension. 3. COPD. 4. Type 2 diabetes mellitus. 5. Coronary artery disease. 6. Compensated congestive heart failure. 7. Chronic atrial fib. PRIOR SURGERIES 1. CABG in 2013. 2. Right infrainguinal bypass May 2016. 3. Mastectomy 1979. 4. Hysterectomy. 5. Tonsillectomy. MEDICATIONS Detailed in the reconciliation form. ALLERGIES Also detailed in the reconciliation form. PHYSICAL EXAMINATION VITAL SIGNS: Temperature 98.6, pulse 78, respirations 18, BP 120/60. IN GENERAL: A well-developed, well-nourished 60-year-old female with normal affect. Cognitive functions are appropriate. LUNGS: Symmetrically expanded with diminished breath sounds throughout. KIRAN: The right posterior lateral thoracotomy scar is noted along with uncomplicated mid-sternotomy. CARDIAC: Rhythm is irregular. No rubs or gallops. No neck vein distension. ABDOMEN: Obese, soft. No palpable aneurysm. EXTREMITIES: Good joint range of motion. Right transmetatarsal amputation wound exhibits granulation tissue along the skin edges with superficial necrotic dry necrosis along the plantar flap approximately 30 x 60-mm in dimension. No bone is exposed at this point. The entire right foot exhibits mild cellulitis extending onto the ankle and along the medial aspect of the right calf. There is no wound drainage or crepitance to suggest aggressive soft tissue infection. A patent right femoral-popliteal bypasses is present. The in situ vein graft is pulsatile throughout with robust biphasic Doppler flow along the vein graft tract and within the right popliteal artery and dorsalis pedis artery. NEUROLOGIC: Stocking-glove hypesthesia typical of diabetic peripheral neuropathy, moderately advanced. No gross lateralizing deficits. IMPRESSION 1. Right transmetatarsal amputation wound superficial necrosis with cellulitis. 2. Patent right infrainguinal bypass. I will discuss with Drs. Wakefield and Gonzalo. Would recommend an attempt at limb salvage with debridement of the wound, continued antibiotic therapy and consideration of VAC dressings. Clearly, wound salvage attempt will require several months. During this time, would allow the patient to fully weight-bear on the right heel so as to avoid debility due to ambulatory inactivity. We will request prior operative records from Dr. Sánchez, review any recent imaging of the bypass. May need to consider bypass imaging if no duplex or angiographic images have been completed. Thank you for allowing me to participate in this lady's care. MD JASE Kinney/DIANA /8:29 AM /9:02 AM
[2016-10-28] MEDS: AZTREONAM INJ 2,000 MG in SODIUM CHLORIDE 0.9% INJ 100 ML IV SCH ×2 (09:22→17:59)
[2016-10-28] MEDS ORDERED: HYDROmorphone HCL PF 2 MG/ML VIAL IV PUSH ONE (11:30)
--- NOTE | 2016-10-28 18:46 | PD.CAR.PN ---
CVT Progress Note Subjective/Hospital Course: 61 year-old female with severe peripheral vascular disease good inflow from the top however small vessel disease below the level of the knee distal to trifurcation Somebody tried to do some sort of bypass in another hospital and this is now occluded as well. Patient recently had transmetatarsal amputation of the right foot and the site is gangrenous with ascending cellulitis in the area Blood supply simply insufficient to make this all area heal A she will need below-knee amputation on the right She'll be scheduled for early next week but first let sort out the anemia and possible questionable GI bleed Full consult dictated Will follow the patient Thanks Kenneth 10/26/16 Patient with the right TMA amputation and gangrene of the foot with cellulitis Patient will receive antibiotics for next few days and I will take her early next week for below-knee amputation Have discussed this with the patient initially agrees to the procedure 10/27/16 Swelling of the leg is significantly decreased since the introduction of antibiotics and cellulitis has receded Necrotic forefoot with visible bone at transmetatarsal level Patient will undergo below-knee amputation early coming week Dr. Wheeler will render second opinion tomorrow 10/28/16 Dr. Wheeler's consultation much appreciated Patient really doesn't want to lose her leg and at this point we will try to save the remaining leg with possible debridement and then grafting If this succeeds patient may keep her leg and if it fails been amputation is always an option Will continue follow patient which you and hopefully we can remedy this without needing an amputation Objective: Vital Signs Date Time Temp Pulse Resp B/P Pulse Ox O2 Delivery O2 Flow Rate FiO2 10/28/16 18:03 64 147/68 10/28/16 16:00 96.8 62 17 83/58 96 10/28/16 12:56 65 111/54 10/28/16 12:00 97.7 60 17 91/57 97 10/28/16 09:25 94 21 10/28/16 08:00 98.4 98 18 195/88 95 10/28/16 04:00 97.4 91 17 182/86 97 10/28/16 00:00 95.8 66 17 192/77 100 10/27/16 22:03 94 21 10/27/16 20:00 95.7 50 18 96/54 99 Result Diagram: 10/26/16 0510 10/28/16 0530 Chantale Wakefield MD Oct 28, 2016 18:46
[2016-10-28] MEDS: ATORVASTATIN 40 MG TAB PO SCH (21:45)
[2016-10-28] MEDS: metroNIDAZOLE 500 MG TAB PO SCH (21:45)
[2016-10-28] MEDS: MIRTAZAPINE 15 MG TAB PO SCH (21:45)
[2016-10-28] MEDS: MONTELUKAST SODIUM 10 MG TAB PO SCH (21:45)
[2016-10-28] MEDS: INSULIN DETEMIR 100 UNITS/ML VIAL SQ SCH (21:46)
[2016-10-29] VITALS (7 sets, daily range): BP systolic 82–181; BP diastolic 46–77; PULSE 47–78; RESP 17–20; TEMP 95.8–97.3; O2SAT 95–97
[2016-10-29] MEDS: AZTREONAM INJ 2,000 MG in SODIUM CHLORIDE 0.9% INJ 100 ML IV SCH ×3 (00:13→16:33)
[2016-10-29] MEDS: HYDROmorphone HCL PF 1 MG/ML VIAL IV PUSH PRN ×4 (00:14→16:32)
[2016-10-29] MEDS ORDERED: PHARMACY ORDERED LAB XX ONE (02:45)
[2016-10-29] MEDS: VANCOMYCIN 1,000 MG/NS 250 ML IV SCH ×2 (02:46)
[2016-10-29] MEDS: oxyCODONE/ACETAMINOPHEN 7.5 MG/325 MG TAB PO PRN ×4 (02:54→21:03)
[2016-10-29] MEDS: metroNIDAZOLE 500 MG TAB PO SCH ×3 (05:22→20:44)
[2016-10-29] MEDS: GABAPENTIN 300 MG CAP PO SCH ×3 (05:22→17:18)
[2016-10-29] MEDS: INSULIN ASPART SUPPLEMENTAL SCALE SQ SCH ×4 (05:46→20:43)
[2016-10-29] MEDS: ISOSORBIDE MONONITRATE 30 MG TAB PO SCH (08:50)
[2016-10-29] MEDS: PANTOPRAZOLE SOD 40 MG DELAYED RELEASE TAB PO SCH ×2 (08:50→21:00)
[2016-10-29] MEDS: METOPROLOL TARTRATE 25 MG TAB PO SCH ×2 (08:50→20:43)
[2016-10-29] MEDS: DULoxetine HCl DR 30 MG CAP PO SCH (08:50)
[2016-10-29] MEDS: CHOLECALCIFEROL (VIT D3) 5000 UNIT CAP PO SCH (08:50)
[2016-10-29] MEDS: amLODIPine BESYLATE 5 MG TAB PO SCH (08:50)
[2016-10-29] MEDS: AMIODARONE 200 MG TAB PO SCH (08:50)
[2016-10-29] MEDS: LOSARTAN 50 MG TAB PO SCH (08:50)
--- NOTE | 2016-10-29 14:48 | HHI.PR ---
Subjective Remarks Follow up for PVD, right foot stump infection, probable GI bleed. Ms. Finnegan was seen in the morning and again in the afternoon. In the morning, patient complained of less than adequate pain control. She requested additional pain meds at the time of her scheduled bedside podiatric procedure. She indeed received additional pain medications. Post procedure, patient's blood pressure dropped to 70s systolic. However, patient was completely asymptomatic. Objective Vitals Vital Signs Date Time Temp Pulse Resp B/P Pulse Ox O2 Delivery O2 Flow Rate FiO2 10/29/16 12:00 96.4 62 18 127/69 97 10/29/16 08:00 96.4 69 18 181/76 96 10/29/16 00:00 97.3 78 20 160/77 95 10/28/16 20:00 98.5 70 20 143/63 95 10/28/16 18:03 64 147/68 10/28/16 16:00 96.8 62 17 83/58 96 I/O 10/28/16 10/28/16 10/28/16 10/29/16 10/29/16 10/29/16 07:00 15:00 23:00 07:00 15:00 23:00 Intake Total 698 ml 890 ml 240 ml 480 ml 100 ml Output Total 1300 ml 651 ml 500 ml 1700 ml Balance -602 ml 239 ml -260 ml -1220 ml 100 ml Intake Oral 240 ml 890 ml 240 ml 480 ml IV Total 458 ml 100 ml Output Urine Total 1300 ml 650 ml 500 ml 1700 ml Stool Total 1 ml # Bowel Movements 0 0 Result Diagram: 10/26/16 0510 10/29/16 0245 Imaging Last Impressions Foot X-Ray 10/25/16 0000 Signed Impressions: Service Date/Time: Tuesday, October 25, 2016 11:29 - CONCLUSION: 1. Transmetatarsal amputation. Non-corticated distal edge of the second cuneiform is stable and reflects the postsurgical changes. 2. Postoperative air in the stomach tissue shows improvement but there is still some persistent air in the distal aspect of the stump which could represent a developing cellulitis. Please correlate with clinical presentation. Sandeep Velázquez MD Foot MRI 10/25/16 0000 Signed Impressions: Service Date/Time: Tuesday, October 25, 2016 14:13 - CONCLUSION: Still significant fluid along the distal amputated margins of the middle, medial, and lateral cuneiform bones concerning for some residual fluid, possible abscess. There is also marked decreased enhancement of the soft tissues in the distal lateral portion of the amputation, correlate for tissue viability. Please see above. Saran Kenyon MD Objective Remarks GENERAL: AOx3, NAD. SKIN: Warm and dry. HEAD: Normocephalic. EYES: No scleral icterus. No injection or drainage. NECK: Supple, trachea midline. No JVD or lymphadenopathy. CARDIOVASCULAR: Regular rate and rhythm without murmurs, gallops, or rubs. RESPIRATORY: Breath sounds equal bilaterally. No accessory muscle use. GASTROINTESTINAL: Abdomen soft, non-tender, nondistended. MUSCULOSKELETAL: No cyanosis, or edema. Right foot MAGAN wrapped. BACK: Nontender without obvious deformity. No CVA tenderness. Procedures bedside debridement 10/29/2016. A/P Problem List: (1) Diabetic foot infection ICD Code: E11.69 Status: Acute (2) DM (diabetes mellitus) ICD Code: E11.9 Status: Chronic (3) A-fib ICD Code: I48.91 Status: Chronic (4) HTN (hypertension) ICD Code: I10 Status: Chronic Assessment and Plan Ms. Finnegan is a 60 year old female with a history of right sided transmetatarsal amputation now presents with gangrenous tissue with erythema extending up. She was also found to have Hgb of 7.0 requiring one unit of PRBCs. Vascular surgery (Dr. Cooper) evaluated patient and determined that patient may need below knee amputation. Patient's blood pressure dropped to 70s systolic. Manual BP confirmed low blood pressure. I evaluated patient in the afternoon. She was sitting in her bed as she usually does. Denies any chest pain, shortness of breath, dizziness or lightheadedness. We started her on 1L of fluid bolus. Patient insists on continuing pain medications. However, it appears that whenever she gets pain medications, her BP drops quite a bit. If BP remains below 90 systolic, we will keep patient on NS @150cc/hour. Discussed with RN. - Severe peripheral vascular disease - Right foot infection with gangrenous tissue - Dr. Wakefield evaluated patient and obtained second opinion from Dr. Wheeler who recommends limb salvage with debridement of the wound. - Currently on Vancomycin and Aztreonam and Flagyl per ID. Wound culture is growing Pseudomonas and GNR. D/w with Dr. Conner (ID). We will continue current abx regimen. - Switch Flagyl IV to PO. - Percocet and Dilaudid IV PRN for pain management. Patient may have physical dependence to narcotics. - Bedside debridement done 10/29/2016. HBO consult pending for Dr. De Leon. - Probable acute GI bleed anemia - one unit of PRBCs per ED. - Continue Protonix 40mg BID. - Colorectal surgery following. - Atrial fibrillation - Continue Metoprolol 25mg BID, Amiodarone 200mg Qday. - No anti-coagulation at this point. Hold Aspirin in light of GI bleed. - Diabetes mellitus - Diabetic neuropathy - Blood glucose less than 100 on admission. - continue Levemir 5 units QHS and sliding scale insulin. - CAD s/p CABG, stents - Hold Aspirin for now. Continue Metoprolol 25mg BID, Losartan 50mg Qday, Imdur 30mg Qday - Continue Lipitor 40mg Qday. Full code. SCDs for now. Pharmacological DVT prophylaxis contraindicated due to acute GI bleed. Probable discharge home on 10/30/2016. Darian Vela DO Oct 29, 2016 14:47
[2016-10-29] MEDS ORDERED: oxyCODONE/ACETAMINOPHEN 5 MG/325 MG TAB PO ONE (17:45)
[2016-10-29] MEDS ORDERED: SODIUM CHLOR 0.9% 1000 ML INJ 1,000 ML IV ONE (19:30)
--- NOTE | 2016-10-29 20:31 | PD.POD ---
Subjective Podiatric Problems s/p Rigth TMA patient seen at bedside this pm in NAD. Nursing staff noted. Pain scale used: 0-10 numeric scale Pain score: 3 Past Med/Surg/Social History Social History Smoking Status: Former Smoker Objective Vital Signs Vital Signs Date Time Temp Pulse Resp B/P Pulse Ox O2 Delivery O2 Flow Rate FiO2 10/29/16 17:17 17 10/29/16 16:30 97/52 10/29/16 16:02 18 10/29/16 16:00 95.8 53 17 82/52 97 10/29/16 12:00 96.4 62 18 127/69 97 10/29/16 08:00 96.4 69 18 181/76 96 10/29/16 00:00 97.3 78 20 160/77 95 Coded Allergies: Bactrim (Verified Allergy, Severe, Shortness of Breath, 10/25/16) Iodine (Verified Allergy, Severe, THROAT SWELLS, 10/25/16) pt states does not have a allergy to Iodine 01/11/16 JF Penicillin (Verified Allergy, Severe, STOPPED BREATHING, 10/25/16) Shellfish (Verified Allergy, Severe, THROAT SWELLS, 10/25/16) *MDRO Multi-Drug Resistant Organism (Verified Adverse Reaction, Unknown, ) 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 (foot)-10/02/16 Other Results Laboratory Tests Test 10/25/16 10/25/16 10/25/16 10/26/16 11:55 12:31 13:46 05:10 Erythrocyte Sedimentation Rate GREATER THAN 140 mm/hr Total Bilirubin 0.2 MG/DL Aspartate Amino Transf 86 U/L (AST/SGOT) Alanine Aminotransferase 34 U/L (ALT/SGPT) Alkaline Phosphatase 59 U/L C-Reactive Protein 11.00 MG/DL Total Protein 7.1 GM/DL Albumin 2.1 GM/DL Blood Type A POSITIVE Antibody Screen NEGATIVE Crossmatch Leukocyte-Reduced Red Blood Cells Blood Bank Comment White Blood Count 9.2 TH/MM3 Red Blood Count 3.33 MIL/MM3 Hemoglobin 9.1 GM/DL Hematocrit 28.0 % Mean Corpuscular Volume 84.1 FL Mean Corpuscular Hemoglobin 27.2 PG Mean Corpuscular Hemoglobin 32.4 % Concent Red Cell Distribution Width 17.3 % Platelet Count 280 TH/MM3 Mean Platelet Volume 6.4 FL Neutrophils (%) (Auto) 67.0 % Lymphocytes (%) (Auto) 17.9 % Monocytes (%) (Auto) 10.9 % Eosinophils (%) (Auto) 3.3 % Basophils (%) (Auto) 0.9 % Neutrophils # (Auto) 6.2 TH/MM3 Lymphocytes # (Auto) 1.6 TH/MM3 Monocytes # (Auto) 1.0 TH/MM3 Eosinophils # (Auto) 0.3 TH/MM3 Basophils # (Auto) 0.1 TH/MM3 CBC Comment DIFF FINAL Differential Comment Sodium Level 142 MEQ/L Potassium Level 4.3 MEQ/L Chloride Level 108 MEQ/L Carbon Dioxide Level 26.5 MEQ/L Anion Gap 8 MEQ/L Blood Urea Nitrogen 19 MG/DL Random Glucose 93 MG/DL Calcium Level 8.7 MG/DL Iron Level 35 MCG/DL Total Iron Binding Capacity 273 MCG/DL Percent Iron Saturation 12.8 % Ferritin 100 NG/ML Test 10/29/16 02:45 Creatinine 1.13 MG/DL Estimat Glomerular Filtration 49 ML/MIN Rate Vancomycin Level Trough 11.1 MCG/ML Exam-Podiatry Dermatological Exam Ulcers: Location/Measurements RLE Dehisced TMA, no exposed bone. DP and PT diminished. LE is warm to warm. + 6 x4x3cm wound. Some necrotic tissue. No purulence and no malodor. Protective sensation is absent. Muscle strength is intact at + 5/5. Assessment & Plan Diagnosis: (1) Diabetic foot infection Status: Acute (2) DM (diabetes mellitus) Status: Chronic A/P Plan for bedside debridment on 10/29/16. Discussed with Dr Wheeler. Plan for HBO, RX placed. Plan for wound VAC. Abx per ID. OK to d/c per Podiatry after HBO consult and HBO placement. Patient would like to f/u with Dr Ruiz with in 1 week of d/c. Procedures RLE: Prep: Right foot with sharp excisional debridment of necrotic and non viable tissue to healthy bleeding tissue with # 15 blade. No bone exposed.DSD applied. Richa Flores DPM Oct 29, 2016 20:31
[2016-10-29] MEDS: ATORVASTATIN 40 MG TAB PO SCH (20:42)
[2016-10-29] MEDS: INSULIN DETEMIR 100 UNITS/ML VIAL SQ SCH (20:43)
[2016-10-29] MEDS: MONTELUKAST SODIUM 10 MG TAB PO SCH (20:43)
[2016-10-29] MEDS: MIRTAZAPINE 15 MG TAB PO SCH (20:43)
[2016-10-30] MEDS: AZTREONAM INJ 2,000 MG in SODIUM CHLORIDE 0.9% INJ 100 ML IV SCH ×2 (01:47→07:56)
[2016-10-30] MEDS: GABAPENTIN 300 MG CAP PO SCH ×4 (01:47→17:38)
[2016-10-30] MEDS: HYDROmorphone HCL PF 1 MG/ML VIAL IV PUSH PRN ×3 (02:01→10:13)
[2016-10-30 02:11] VITALS: BP 166/82; PULSE 77; RESP 18; TEMP 97.6
[2016-10-30] MEDS ORDERED: VANCOMYCIN INJ 1,500 MG in SODIUM CHLORID 0.9% 500 ML INJ 500 ML IV SCH (03:00)
[2016-10-30] MEDS: oxyCODONE/ACETAMINOPHEN 7.5 MG/325 MG TAB PO PRN ×3 (03:04→15:45)
[2016-10-30] MEDS: metroNIDAZOLE 500 MG TAB PO SCH ×2 (05:05→12:16)
[2016-10-30] MEDS: INSULIN ASPART SUPPLEMENTAL SCALE SQ SCH ×3 (05:06→16:00)
[2016-10-30 05:37] LABS: AUTOMATED NEUTROPHIL # 9.8 TH/MM3 (1.8-7.7); BASOPHIL # 0.1 TH/MM3 (0-0.2); BASOPHIL % 0.4 % (0.0-2.0); EOSINOPHIL # 0.3 TH/MM3 (0-0.4); EOSINOPHIL % 2.7 % (0.0-4.0); HEMATOCRIT 33.2 % (35.0-46.0); HEMO FLAGS DIFF FINAL; LYMPH % 11.7 % (9.0-44.0); LYMPHOCYTE # 1.5 TH/MM3 (1.0-4.8); MEAN CELL VOLUME 85.9 FL (80.0-100.0); MEAN CORPUSCULAR HEMOGLOBIN 26.4 PG (27.0-34.0); MEAN CORPUSCULAR HGB CONC 30.8 % (32.0-36.0); MONO % 9.4 % (0.0-8.0); NEUT % 75.8 % (16.0-70.0); PLATELET COUNT 234 TH/MM3 (150-450); RED BLOOD COUNT 3.86 MIL/MM3 (4.00-5.30); RED CELL DISTRIBUTION WIDTH 17.8 % (11.6-17.2); WHITE BLOOD COUNT 12.9 TH/MM3 (4.0-11.0)
[2016-10-30] MEDS: METOPROLOL TARTRATE 25 MG TAB PO SCH (07:54)
[2016-10-30] MEDS: CHOLECALCIFEROL (VIT D3) 5000 UNIT CAP PO SCH (07:54)
[2016-10-30] MEDS: LOSARTAN 50 MG TAB PO SCH (07:54)
[2016-10-30] MEDS: amLODIPine BESYLATE 5 MG TAB PO SCH (07:54)
[2016-10-30] MEDS: PANTOPRAZOLE SOD 40 MG DELAYED RELEASE TAB PO SCH (07:55)
[2016-10-30] MEDS: DULoxetine HCl DR 30 MG CAP PO SCH (07:55)
[2016-10-30] MEDS: ISOSORBIDE MONONITRATE 30 MG TAB PO SCH (07:55)
[2016-10-30] MEDS: AMIODARONE 200 MG TAB PO SCH (07:55)
[2016-10-30 08:00] VITALS: BP 187/76; PULSE 77; RESP 16; TEMP 97.5; O2SAT 97
--- NOTE | 2016-10-30 08:22 | HHI.PR ---
Addendum to Inpatient Note Addendum Reason: Additional Documentation Additional Information Came to see patient for hyperbaric oxygen therapy evaluation. Patient tells me right away that she cannot go into the hyperbaric chamber and cannot have transportation to the wound center daily. Gave her a wound center card if she changes her mind. She is to follow-up with a [facility] podiatry. No no consult performed. Please reconsult the patient changes her mind Jean De Leon DPM Oct 30, 2016 08:22
--- NOTE | 2016-10-30 09:42 | HHI.FF ---
Face to Face Verification Diagnosis: (1) Diabetic foot infection (2) HTN (hypertension) (3) GI bleed Physical Therapy Order: Evaluate and Treat, Improve ambulation, Strength and gait training Home Health Nursing Order: Medical education Signs/symptoms of disease process Wound care and dressing changes Nursing assessment with vital signs I have seen patient Zahra Finnegan on 10/30/16. My clinical findings support the need for the requested home health care services because: Deconditioned w/ increased weakness Limited ability to care for self Need for psychosocial assistance High risk of falls Infection w/ risk of complications I certify that my clinical findings support that this patient is homebound because: Impaired cognitive ability/safety Unsteady gait/balance Unsafe to leave home unassisted Need for psychosocial assistance Unable to use public transportation Darian Vela DO Oct 30, 2016 9:42 am
[2016-10-30] MEDS: SODIUM CHLORIDE 0.9% FLUSH 10 ML FLUSH IVF PRN (10:13)
[2016-10-30 12:00] VITALS: BP 85/47; PULSE 57; RESP 16; TEMP 96.1; O2SAT 100
[2016-10-30] MEDS ORDERED: HYDROmorphone HCL PF 1 MG/ML VIAL IV ONE (14:00)
--- NOTE | 2016-10-30 14:33 | HHI.IDPN ---
Subjective Subjective Remarks seen by Dr Wheeler for 2 nd opniion who recommends limb salvaging approach Pt sp b/s R foot wound debridement afebrile wants to go home Antibiotics azctam vanco flagyl Allergies: Coded Allergies: Bactrim (Verified Allergy, Severe, Shortness of Breath, 10/25/16) Iodine (Verified Allergy, Severe, THROAT SWELLS, 10/25/16) pt states does not have a allergy to Iodine 01/11/16 JF Penicillin (Verified Allergy, Severe, STOPPED BREATHING, 10/25/16) Shellfish (Verified Allergy, Severe, THROAT SWELLS, 10/25/16) *MDRO Multi-Drug Resistant Organism (Verified Adverse Reaction, Unknown, ) 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 Vital Signs Date Time Temp Pulse Resp B/P Pulse Ox O2 Delivery O2 Flow Rate FiO2 10/30/16 12:00 96.1 57 16 85/47 100 10/30/16 08:00 97.5 77 16 187/76 97 10/30/16 02:11 97.6 77 18 166/82 10/29/16 20:53 18 115/60 10/29/16 20:00 47 18 91/46 97 10/29/16 17:17 17 10/29/16 16:30 97/52 10/29/16 16:02 18 10/29/16 16:00 95.8 53 17 82/52 97 10/29/16 10/29/16 10/30/16 15:00 23:00 07:00 Intake Total 640 ml 1960 ml 615 ml Output Total 1101 ml 1550 ml Balance -461 ml 1960 ml -935 ml Intake Oral 540 ml 960 ml IV Total 100 ml 1000 ml 615 ml Output Urine Total 1100 ml 1550 ml Stool Total 1 ml # Voids 4 . Laboratory Tests Test 10/30/16 05:10 White Blood Count 12.9 TH/MM3 Red Blood Count 3.86 MIL/MM3 Hemoglobin 10.2 GM/DL Hematocrit 33.2 % Mean Corpuscular Volume 85.9 FL Mean Corpuscular Hemoglobin 26.4 PG Mean Corpuscular Hemoglobin 30.8 % Concent Red Cell Distribution Width 17.8 % Platelet Count 234 TH/MM3 Mean Platelet Volume 7.0 FL Neutrophils (%) (Auto) 75.8 % Lymphocytes (%) (Auto) 11.7 % Monocytes (%) (Auto) 9.4 % Eosinophils (%) (Auto) 2.7 % Basophils (%) (Auto) 0.4 % Neutrophils # (Auto) 9.8 TH/MM3 Lymphocytes # (Auto) 1.5 TH/MM3 Monocytes # (Auto) 1.2 TH/MM3 Eosinophils # (Auto) 0.3 TH/MM3 Basophils # (Auto) 0.1 TH/MM3 CBC Comment DIFF FINAL Differential Comment Laboratory Tests Test 10/29/16 02:45 Creatinine 1.13 MG/DL Estimat Glomerular Filtration 49 ML/MIN Rate Imaging Last Impressions Foot X-Ray 10/25/16 0000 Signed Impressions: Service Date/Time: Tuesday, October 25, 2016 11:29 - CONCLUSION: 1. Transmetatarsal amputation. Non-corticated distal edge of the second cuneiform is stable and reflects the postsurgical changes. 2. Postoperative air in the stomach tissue shows improvement but there is still some persistent air in the distal aspect of the stump which could represent a developing cellulitis. Please correlate with clinical presentation. Sandeep Velázquez MD Foot MRI 10/25/16 0000 Signed Impressions: Service Date/Time: Tuesday, October 25, 2016 14:13 - CONCLUSION: Still significant fluid along the distal amputated margins of the middle, medial, and lateral cuneiform bones concerning for some residual fluid, possible abscess. There is also marked decreased enhancement of the soft tissues in the distal lateral portion of the amputation, correlate for tissue viability. Please see above. Saran Kenyon MD Physical Exam CONSTITUTIONAL/GENERAL: This is an adequately nourished patient, in no apparent distress. CARDIOVASCULAR: Regular rate and rhythm without murmurs, gallops, or rubs. No JVD. Peripheral pulses symmetric. RESPIRATORY/CHEST: Symmetric, unlabored respirations. Clear to auscultation. Breath sounds equally diminished bilaterally. No wheezes, rales, or rhonchi. GASTROINTESTINAL: Abdomen soft globular, non-tender, mildly distended. No hepato -splenomegaly, Stoma in place LLQ MUSCULOSKELETAL: RLE is mildly edematous, all the was to the knee Well healed incision from periferal bypass Sp TMA R foot is opend, granulating nicedly, + odorless serosangious dc NEUROLOGICAL: Awake and alert. Motor and sensory grossly within normal limits. Follows commands. Normal speech Moves all extremities. Assessment & Plan Remarks MRSA DFI, osteo R foot sp TMA in the settings of PVD - sp dehisced amputation - now growing PSAE keith S Severe unreconstructable PVD, so far conservative approach with limb salvaging attempt Multiple med prob HIgh grade PCN allergy (anaphylaxis) -cont vancomycin -dc azactam, flagyl - start Levaquine - Rx with vanco, PO levaquine x 6 wks OK to dc from ID standpoint fu with podiatry, vasc surgeon VAC Fiona Conner MD Oct 30, 2016 14:33 Fiona Conner MD Oct 30, 2016 14:33
--- NOTE | 2016-10-30 14:38 | HHI.FF ---
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 [] May leave port accessed during therapy. [] May leave peripheral site accessed for duration of therapy. [x] If patient has SOB or respiratory distress, check oxygen saturation. If less than 90% or clinical signs of respiratory distress, administer oxygen at 2 L/min. via nasal cannula and notify physician. [x] Anaphylaxis/Reaction orders: * Stop infusion. * Keep IV line open with saline flush. * Notify physician. * Monitor vital signs every 15 minutes until symptoms resolve. * Check Oxygen saturation; Oxygen at 2 L/min. via nasal cannula if less than 90% or clinical signs of respiratory distress. * Administer diphenhydramine (Benadryl) 25 mg IV STAT, (unless patient has received as pre-med). May repeat once, if necessary. * Solu-Cortef 250 mg IVP over 30-60 seconds, use 100 mg vials for each dissolution. * Epinephrine (1mg/1 ml) 0.3 mg subcutaneously or IVP now with any signs of respiratory distress. * Check with physician for new additional pre-med orders if patient is re- challenged or re-treated. [x] May remove PICC line when treatment complete, after confirming with Physician. [x] If the patient is admitted to the hospital, the ED, or transferred via [facility] , complete transfer form including medication reconciliation order sheet. Laboratory Tests Weekly Labs: CBC w/diff, Creatinine (mond and Thur), SED Rate, Vancomycin Trough Fiona Conner MD Oct 30, 2016 14:38
[2016-10-30] MEDS ORDERED: LEVOFLOXACIN 750 MG TAB PO SCH (15:00)
[2016-10-30] MEDS ORDERED: LEVA750T PO (15:33)
--- NOTE | 2016-10-30 15:35 | HHI.DS ---
Discharge Summary Admission Date Oct 25, 2016 at 2:08 pm Discharge Date: Oct 30, 2016 Admitting Diagnosis gi bleed, diabetic foot infection (1) Diabetic foot infection ICD Code: E11.69 Diagnosis: Principal (2) DM (diabetes mellitus) ICD Code: E11.9 (3) A-fib ICD Code: I48.91 (4) HTN (hypertension) ICD Code: I10 Procedures bedside debridement 10/29/2016. Brief History - From Admission Ms. 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 Patient was discharged on 10/08/2016 after being treated for right foot osteomyelitis. She underwent root transmetatarsal amputation. Cx grew MRSA. Patient was discharged home to continue 6 weeks of IV Vancomycin and follow up with Dr. Garcia (ID). Patient denies any chest pain, shortness of breath. She had low grade temp at home. In the ED, patient was also found to have hemoglobin of 7.0. Patient has a colostomy performed by Dr. Moncada previously. One unit of PRBCs were given by ED. No changes in bladder habits. CBC/BMP: 10/30/16 0510 10/29/16 0245 Significant Findings Laboratory Tests Test 10/28/16 10/29/16 10/30/16 05:30 02:45 05:10 Creatinine 1.17 MG/DL 1.13 MG/DL (0.50-1.00) (0.50-1.00) Estimat Glomerular Filtration 47 ML/MIN (>89) 49 ML/MIN (>89) Rate Vancomycin Level Trough 11.1 MCG/ML (5.0-10.0) White Blood Count 12.9 TH/MM3 (4.0-11.0) Red Blood Count 3.86 MIL/MM3 (4.00-5.30) Hemoglobin 10.2 GM/DL (11.6-15.3) Hematocrit 33.2 % (35.0-46.0) Mean Corpuscular Hemoglobin 26.4 PG (27.0-34.0) Mean Corpuscular Hemoglobin 30.8 % Concent (32.0-36.0) Red Cell Distribution Width 17.8 % (11.6-17.2) Neutrophils (%) (Auto) 75.8 % (16.0-70.0) Monocytes (%) (Auto) 9.4 % (0.0-8.0) Neutrophils # (Auto) 9.8 TH/MM3 (1.8-7.7) Monocytes # (Auto) 1.2 TH/MM3 (0-0.9) Imaging Last Impressions Foot X-Ray 10/25/16 0000 Signed Impressions: Service Date/Time: Tuesday, October 25, 2016 11:29 - CONCLUSION: 1. Transmetatarsal amputation. Non-corticated distal edge of the second cuneiform is stable and reflects the postsurgical changes. 2. Postoperative air in the stomach tissue shows improvement but there is still some persistent air in the distal aspect of the stump which could represent a developing cellulitis. Please correlate with clinical presentation. Sandeep Velázquez MD Foot MRI 10/25/16 0000 Signed Impressions: Service Date/Time: Tuesday, October 25, 2016 14:13 - CONCLUSION: Still significant fluid along the distal amputated margins of the middle, medial, and lateral cuneiform bones concerning for some residual fluid, possible abscess. There is also marked decreased enhancement of the soft tissues in the distal lateral portion of the amputation, correlate for tissue viability. Please see above. Saran Kenyon MD PE at Discharge GENERAL: AOx3, NAD. SKIN: Warm and dry. HEAD: Normocephalic. EYES: No scleral icterus. No injection or drainage. NECK: Supple, trachea midline. No JVD or lymphadenopathy. CARDIOVASCULAR: Regular rate and rhythm without murmurs, gallops, or rubs. RESPIRATORY: Breath sounds equal bilaterally. No accessory muscle use. GASTROINTESTINAL: Abdomen soft, non-tender, nondistended. MUSCULOSKELETAL: No cyanosis, or edema. Right foot MAGAN wrapped. BACK: Nontender without obvious deformity. No CVA tenderness. Pt update on day of discharge Patient is doing well. No acute concerns. Denies any fever, chills. Hospital Course Ms. Finnegan is a 60 year old female with a history of right sided transmetatarsal amputation now presents with gangrenous tissue with erythema extending up. She was also found to have Hgb of 7.0 requiring one unit of PRBCs. Vascular surgery (Dr. Cooper) evaluated patient and determined that patient may need below knee amputation. - Severe peripheral vascular disease - Right foot infection with gangrenous tissue - Dr. Wakefield evaluated patient and obtained second opinion from Dr. Wheeler who recommends limb salvage with debridement of the wound. - Currently on Vancomycin and Aztreonam and Flagyl per ID. Wound culture is growing Pseudomonas and GNR. D/w with Dr. Conner (ID). We will continue current abx regimen. - Switch Flagyl IV to PO. - Aztreonam and Flagyl discontinued per ID. Patient is being discharged on Vancomycin IV and Levaquin. - Percocet and Dilaudid IV PRN for pain management. Patient may have physical dependence to narcotics. - Bedside debridement done 10/29/2016. HBO consult - Patient does not want to do HBO. - Probable acute GI bleed anemia - one unit of PRBCs per ED. - Continue Protonix 40mg BID. - Colorectal surgery following. - Atrial fibrillation - Continue Metoprolol 25mg BID, Amiodarone 200mg Qday. - No anti-coagulation at this point. Hold Aspirin in light of GI bleed. - Diabetes mellitus - Diabetic neuropathy - Blood glucose less than 100 on admission. - continue Levemir 5 units QHS and sliding scale insulin. - CAD s/p CABG, stents - Hold Aspirin for now. Continue Metoprolol 25mg BID, Losartan 50mg Qday, Imdur 30mg Qday - Continue Lipitor 40mg Qday. Patient was discharged in hemodynamically stable condition. She was discharged home with home health and wound vac. Pt Condition on Discharge: Good Discharge Disposition: Disch w/ Home Health Serv Discharge Time: > 30 minutes Discharge Instructions DIET: Follow Instructions for: Diabetic Diet Activities you can perform: Regular-No Restrictions Follow up Referrals: PCP Follow-up - 1 Week Podiatry - 1 Week with William Ruiz DPM New Medications: Levofloxacin (Levaquin) 750 Mg Tab 750 MG PO Q24H Infection #40 TAB Continued Medications: Alendronate (Alendronate) 70 Mg Tab 70 MG PO Q7D Osteporosis Treatment #4 Ref 0 TAB Amiodarone (Amiodarone) 200 Mg Tab 200 MG PO DAILY Regulate Heart Beat #30 Ref 0 TAB Aspirin (Aspirin) 81 Mg Chew 81 MG CHEW DAILY Ref 0 TAB Atorvastatin (Lipitor) 40 Mg Tab 40 MG PO HS Cholesterol Management #30 Ref 0 TAB Cholecalciferol (Vitamin D) 5,000 Unit Tab 5000 UNITS PO DAILY Duloxetine DR (Duloxetine DR) 30 Mg Capdr 30 MG PO DAILY #30 Ref 0 CAP Gabapentin (Gabapentin) 300 Mg Cap 300 MG PO Q6HR #60 Ref 0 CAP Insulin Human Isophane-Regular 70-30 Inj (Novolin 70-30 Inj) 1,000 Unit/10 Ml Vial 30 UNITS SQ BID Blood Sugar Management Ref 0 ML Insulin Human Regular Inj (Novolin R Inj) 1,000 Unit/10 Ml Vial Unknown Dose SQ ACHS Sliding Scale As Directed. Blood Sugar Management #10 Ref 0 ML Isosorbide Mononitrate ER (Isosorbide Mononitrate ER) 30 Mg Shonda 30 MG PO DAILY Prevent Chest Pain #30 Ref 0 TAB Losartan (Losartan) 50 Mg Tab 50 MG PO DAILY Blood Pressure Management #30 Ref 0 TAB Metoprolol Tartrate (Metoprolol Tartrate) 25 Mg Tab 25 MG PO BID HTN Days 30 TAB Mirtazapine (Mirtazapine) 30 Mg Tab 30 MG PO HS Depression Control #30 Ref 0 TAB Montelukast (Montelukast) 10 Mg Tab 10 MG PO HS #30 Ref 0 TAB Tizanidine (Tizanidine) 4 Mg Cap 4 MG PO TID Muscle Spasm Ref 0 CAP Darian Vela DO Oct 30, 2016 15:35
[2016-10-30] MEDS ORDERED: LACTCHW3 CHEW (15:51)
[2016-10-30 16:45] VITALS: RESP 16
[2016-10-30] MEDS ORDERED: IOHEXOL 350 MG/ML 10 ML VIAL (for RAD DIAG) IV ONE (17:29)
--- NOTE | 2016-10-30 18:32 | RADRPT ---
EXAM DATE/TIME: 10/30/2016 16:56 [facility] COMPARISON: CTA RUNOFF W 3D RECON, December 16, 2015, 14:46. INDICATIONS : Right leg pain, right leg wound. IV CONTRAST: 95 cc Omnipaque 350 (iohexol) IV RADIATION DOSE: 8.12 CTDIvol (mGy) MEDICAL HISTORY : Chronic obstructive pulmonary disease. Cardiovascular disease Lupus. Diabetes. SURGICAL HISTORY : Hysterectomy. Mastectomy, bilateral. ENCOUNTER: Initial ACUITY: 2 weeks PAIN SCALE: 8/10 LOCATION: Right lower extremity TECHNIQUE: Volumetric scanning was performed using a multi-row detector CT scanner. The data was post processed with a variety of visualization algorithms including full volume maximum intensity pr ojection, multi-planar sliding thin slab reformation, curved planar reformation, and surface renderin g techniques. Using automated exposure control and adjustment of the mA and/or kV according to patie nt size, radiation dose was kept as low as reasonably achievable to obtain optimal diagnostic quality images. FINDINGS: ABDOMINAL AORTA: Atherosclerotic calcification of the abdominal aorta but the vessel is normal in ca liber throughout its length without aneurysmal disease. There are single bilateral renal arteries wh ich are patent. Mesenteric vessels are patent as well. PELVIS: There is scattered atherosclerotic calcification in the iliac arteries bilaterally with mild segmental stenosis but no significant flow-limiting lesions identified. RIGHT LOWER EXTREMITY: Common femoral artery is patent. The profunda is also patent. The SFA is ex tremely diminutive and actually occludes near the origin with some collateral reconstitution more dis tally. However, there is an extraanatomic fem-popliteal bypass graft. The origin of the bypass david t is widely patent. However, the extraanatomic vessel appears to be compromised as it traverses ante rior to the distended common femoral vein. This is probably flow-limiting. The bypass graft is othe rwise widely patent but does traverse an area of subcutaneous stranding in the medial right thigh con cerning for cellulitis. Bypass graft remains patent down to the below knee popliteal. Popliteal is patent down to the trifurcation with three-vessel runoff. LEFT LOWER EXTREMITY: Common femoral shows calcification but is patent. The profunda and SFA area a lso patent with some atherosclerotic irregularity of the SFA. The vessel remains patent down to the popliteal. The popliteal is patent down to the trifurcation with three-vessel runoff. MISCELLANEOUS: Also noted is a breast augmentation on the left. Patient is status post cholecystect shannon and hysterectomy. There is an ostomy in the left mid abdomen with postsurgical changes in the re gional bowel. Stool is identified in the proximal colon in a nonobstructive pattern. There is a non obstructing 7 mm calculus in the lower pole collecting system of the right kidney. There is strandin g in the subcutaneous tissues of both thighs medially, right greater than left, concerning for a rosina onal cellulitis. Again, the extraanatomic bypass graft on the right traverses through this area of s tranding but remains patent. There are likely reactive lymph nodes in the inguinal regions bilateral ly. Some edema is identified in the lower extremities bilaterally. CONCLUSION: 1. Dense atherosclerotic calcification of the abdominal and pelvic vasculature but I believe the inf low is adequate bilaterally. 2. On the right, the [place] SFA is very diminutive throughout its course and eventually occludes. T he profunda is patent. There is an extraanatomic bypass graft which remains patent but I believe jack t there is a high-grade stenosis proximally as the vessel traverses over the distended common femoral vein. The bypass graft is otherwise patent otherwise patent down to the below knee popliteal. 3. As mentioned above, the extraanatomic bypass graft traverses through an area of subcutaneous stra nding concerning for cellulitis. This does not result in occlusion. 4. On the left, there is some atherosclerotic irregularity of the SFA and the popliteal but the vess els are patent down to the trifurcation vessels. 5. Three-vessel runoff bilaterally. 6. Subcutaneous stranding in the medial aspect of the thighs, right greater than left. Findings are concerning for cellulitis. I believe there is reactive adenopathy in the inguinal regions bilateral ly. 7. Generalized anasarca around the trunk. There is also edema in both lower extremities. The patie nt has had a trans tarsal amputation in the right foot with regional edema/cellulitis. Sandeep Velázquez MD on October 30, 2016 at 17:57 Board Certified Radiologist. This report was verified electronically.
[2016-11-02] MEDS ORDERED: PHARMACY ORDERED LAB XX ONE (02:45)
== END 2016-10-30 18:16 | disposition home health service (06) | DRG 464 ==
LOC: NEPC 10:56 → NEDA 14:08 → N07B 15:44
PROVIDERS: ADMIT Hospitalist; ATTEND Hospitalist
PROC: 30233N1 Transfusion of Nonautologous Red Blood Cells into Peripheral Vein, Percutaneous Approach (ICD-10-PCS; 2016-10-25)
PROC: 0JDQ3ZZ Extraction of Right Foot Subcutaneous Tissue and Fascia, Percutaneous Approach (ICD-10-PCS; 2016-10-26)
PROC: 0JBQ0ZZ Excision of Right Foot Subcutaneous Tissue and Fascia, Open Approach (ICD-10-PCS; principal; 2016-10-29)
DX: T87.43 Infection of amputation stump, right lower extremity (principal); E11.52 Type 2 diabetes mellitus with diabetic peripheral angiopathy with gangrene; T81.32XA Disruption of internal operation (surgical) wound, not elsewhere classified, initial encounter; E11.40 Type 2 diabetes mellitus with diabetic neuropathy, unspecified; M32.9 Systemic lupus erythematosus, unspecified; I50.9 Heart failure, unspecified; I11.0 Hypertensive heart disease with heart failure; K92.2 Gastrointestinal hemorrhage, unspecified; L03.115 Cellulitis of right lower limb; E11.628 Type 2 diabetes mellitus with other skin complications; J45.909 Unspecified asthma, uncomplicated; F41.9 Anxiety disorder, unspecified; F32.9 Major depressive disorder, single episode, unspecified; I25.10 Atherosclerotic heart disease of native coronary artery without angina pectoris; Z95.1 Presence of aortocoronary bypass graft; I48.2 Chronic atrial fibrillation; J44.9 Chronic obstructive pulmonary disease, unspecified; D50.0 Iron deficiency anemia secondary to blood loss (chronic); B95.62 Methicillin resistant Staphylococcus aureus infection as the cause of diseases classified elsewhere; T87.53 Necrosis of amputation stump, right lower extremity; B96.5 Pseudomonas (aeruginosa) (mallei) (pseudomallei) as the cause of diseases classified elsewhere; F17.210 Nicotine dependence, cigarettes, uncomplicated; Z79.4 Long term (current) use of insulin; Z85.3 Personal history of malignant neoplasm of breast; Z86.14 Personal history of Methicillin resistant Staphylococcus aureus infection; Z88.0 Allergy status to penicillin; Z88.2 Allergy status to sulfonamides; Z91.013 Allergy to seafood; Z90.13 Acquired absence of bilateral breasts and nipples; Z95.5 Presence of coronary angioplasty implant and graft; Z99.81 Dependence on supplemental oxygen
CPT/HCPCS: 36430; 73630; 73720; 75635; 80048; 80053; 80202; 82565; 82728; 82948; 83540; 83550; 85025; 85027; 85652; 86140; 86850; 86900; 86901; 86920; 87040; 87070; 87077; 87186; 87205; 93922; 96374; 96375; A9579; C9113; J1170; J1815; J2270; J3370; J7030; J7040; J7050; P9016; Q9967

== ENCOUNTER 2016-11-12 15:13 | Inpatient (IN) | payer OTHER, MEDICARE ==
[~2016-11-12] VITALS: Ht 157.5 cm; Wt 85.9 kg
[2016-11-12] VITALS (14 sets, daily range): BP systolic 67–120; BP diastolic 38–65; PULSE 60–73; RESP 16–24; TEMP 97.4–98.5; O2SAT 91–100
[~2016-11-12 15:13] MED LIST changes: +ALEN1TAB48 PO; +LACTCHW3 CHEW; +LEVA750T PO; +MIRT30TA PO
--- NOTE | 2016-11-12 15:24 | PD ---
Physical Exam Time Seen by Provider: 15:21 Narrative 60 year old female says she was sent here by her doctor for hemoglobin of 7, she complains of weakness, R foot pain, inability to ambulate. She was admitted here on october 25 for GI bleed and diabetic foot infection. Hypotensive in triage, she is being immediately bedded. Data Data Last Documented VS Vital Signs Date Time Temp Pulse Resp B/P Pulse Ox O2 Delivery O2 Flow Rate FiO2 11/12/16 15:17 97.4 65 24 67/38 94 Room Air [facility] Medical Record Reviewed: Yes Supervised Visit with SUZY: Yes Terrell Sharif Nov 12, 2016 15:24
[2016-11-12] MEDS ORDERED: SODIUM CHLOR 0.9% 1000 ML INJ 1,000 ML IV ONE ×2 (15:33)
[2016-11-12] MEDS ORDERED: SODIUM CHLOR 0.9% 1000 ML INJ 700 ML IV ONE (15:33)
[2016-11-12] MEDS ORDERED: AZTREONAM INJ 2,000 MG in SODIUM CHLORIDE 0.9% INJ 100 ML IV STA (15:43)
[2016-11-12] MEDS ORDERED: VANCOMYCIN INJ 1,000 MG in SODIUM CHLOR 0.9% 250 ML INJ 250 ML IV STA (15:43)
[2016-11-12] MEDS ORDERED: metroNIDAZOLE 500 MG INJ 100 ML IV STA (15:43)
--- NOTE | 2016-11-12 15:43 | PD ---
HPI Chief Complaint: General Weakness Time Seen by Provider: 15:33 Travel History International Travel<30 days: No Contact w/Intl Traveler<30days: No Traveled to known affect area: No History of Present Illness HPI Patient is a 60-year-old female with history of diabetes, HTN, atrial fibrillation status post partial amputation transmetatarsal of the right foot for osteomyelitis in October on the IV vancomycin through right upper extremity PICC line here with complaint of generalized weakness and right foot pain. Patient states that she is been having increasing pain in the right foot, as well as the left foot to a lesser degree which has limited her ambulation over the course the last 2-3 days. She notes increasing redness and discharge from the right foot amputation site. Significant other states that she had a wound VAC, but it was leaking and so they are now doing wet-to-dry dressing. She denies any fevers or chills. Patient pale. States that she has a history of anemia and there was concern for GI bleeding, she was transfused on recent hospital stay. She is not on anticoagulants. Patient notably hypotensive in triage, patient states her blood pressure runs around 100 systolic despite a diagnosis of HTN, however looking through her previous chart visits patient is not consistently hypotensive. PFSH Past Medical History Asthma: Yes Autoimmune Disease: Yes (LUPUS) Blood Disorders: No Anxiety: Yes Depression: Yes Heart Rhythm Problems: No Cancer: Yes (HX CINDY MASTECTOMY - NON MALIGNANT - HX FAMILY BREAST CA) Cardiovascular Problems: Yes High Cholesterol: No Chemotherapy: No Chest Pain: No Congestive Heart Failure: No COPD: No Cerebrovascular Accident: No Diabetes: Yes Endocrine: Yes Gastrointestinal Disorders: Yes (HX FISTULA - COLOSTOMY LEFT UPPER QUAD; ESOPHAGEAL SPASMS) Genitourinary: No Headaches: No Hepatitis: No Hiatal Hernia: No Hypertension: No Immune Disorder: Yes (LUPUS ) Implanted Vascular Access Dvce: Yes Musculoskeletal: Yes (LUPUS - PAIN IN JOINTS/MUSCLE CRAMPS/SPASMS) Neurologic: Yes (DIABETIC NERVE PAIN HANDS & FEET) Psychiatric: Yes Reproductive: No Respiratory: Yes Immunizations Current: Yes Migraines: No Seizures: No Sleep Apnea: No Thyroid Disease: No Menopausal: Yes Past Surgical History Abdominal Surgery: Yes (JAMSHID,COLON SX, COLOSTOMY AND REVERSAL; COLOSTOMY 04/15) AICD: No Body Medical Devices: CARDIAC STENTS, BREAST SALINE IMPLANTS Cardiac Surgery: Yes (CARDIAC STENTS X2, CABG 5 vessels ) Endocrine Surgery: No Genitourinary Surgery: Yes (KIDNEY STONES 1985, ESWL) Gynecologic Surgery: Yes (HYSTERECTOMY) Hysterectomy: Yes Joint Replacement: No Neurologic Surgery: No Oral Surgery: Yes (TONSILLECTOMY) Pacemaker: No Thoracic Surgery: No Other Surgery: Yes (right foot toe amputation) Social History Alcohol Use: No Tobacco Use: No Substance Use: No Allergies-Medications (Allergen,Severity, Reaction): Coded Allergies: Bactrim (Verified Allergy, Severe, Shortness of Breath, 11/12/16) Iodine (Verified Allergy, Severe, THROAT SWELLS, 11/12/16) pt states does not have a allergy to Iodine 01/11/16 JF Penicillin (Verified Allergy, Severe, STOPPED BREATHING, 11/12/16) Shellfish (Verified Allergy, Severe, THROAT SWELLS, 11/12/16) *MDRO Multi-Drug Resistant Organism (Verified Adverse Reaction, Unknown, ) 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 (foot)-10/02/16 Reported Meds & Prescriptions Reported Meds & Active Scripts Active Levaquin (Levofloxacin) 750 Mg Tab 750 Mg PO Q24H Reported Losartan (Losartan Potassium) 25 Mg Tab 25 Mg PO DAILY Percocet (Oxycodone-Acetaminophen) 10-325 mg Tab 1 Tab PO QID Metoprolol Tartrate 25 Mg Tab 12.5 Mg PO BID Duloxetine DR (Duloxetine HCl) 60 Mg Capdr 60 Mg PO BID Alendronate (Alendronate Sodium) 70 Mg Tab 70 Mg PO Q7D Isosorbide Mononitrate ER (Isosorbide Mononitrate) 30 Mg Shonda 30 Mg PO DAILY Lipitor (Atorvastatin Calcium) 40 Mg Tab 40 Mg PO HS Vitamin D (Cholecalciferol) 5,000 Unit Tab 5,000 Units PO DAILY Montelukast (Montelukast Sodium) 10 Mg Tab 10 Mg PO HS Novolin 70-30 Inj (Insulin Human Isoph/Insulin Regular) 1,000 Unit/10 Ml Vial 30 Units SQ BID Novolin R Inj (Insulin Human Regular) 1,000 Unit/10 Ml Vial SQ ACHS Sliding Scale As Directed. Tizanidine (Tizanidine HCl) 4 Mg Cap 4 Mg PO TID Gabapentin 300 Mg Cap 300 Mg PO Q6HR Aspirin 81 Mg Chew 81 Mg PO DAILY Amiodarone (Amiodarone HCl) 200 Mg Tab 200 Mg PO DAILY Review of Systems ROS Limitations: Poor Historian Except as stated in HPI: all other systems reviewed are Neg Physical Exam Exam Limitations: Poor Historian Narrative GENERAL: Chronically ill appearing adult female appearing older than stated age in no acute distress SKIN: Ulcer on the plantar aspect of the left great toe. This is dry without discharge or significant erythema. The right foot has a transmetatarsal amputation with breakdown/dehiscence with semi-purulent discharge, necrosis along the plantar aspect the foot, and erythema that extends up into the foot towards the ankle HEAD: Normocephalic. EYES: No scleral icterus. No injection or drainage. ENT: Mucous membranes pink and moist. NECK: Supple CARDIOVASCULAR: Regular rate and rhythm. No murmur appreciated. Hypotensive with systolics in the 70s and 60s RESPIRATORY: No accessory muscle use. Clear to auscultation. Breath sounds equal bilaterally. GASTROINTESTINAL: Abdomen soft, non-tender, nondistended. MUSCULOSKELETAL: Pain in the right lower extremity, see above wound exam. Patient is able lift the leg, but not able to bear weight due to pain. NEUROLOGICAL: Awake and alert. Normal speech. PSYCHIATRIC: Appropriate mood and affect; insight and judgment normal. Data Data Last Documented VS Vital Signs Date Time Temp Pulse Resp B/P Pulse Ox O2 Delivery O2 Flow Rate FiO2 11/12/16 16:51 60 20 71/42 98 11/12/16 16:30 Nasal Cannula 3 11/12/16 15:44 96 11/12/16:17 97.4 Orders Electrocardiogram (11/12/16 15:33) Complete Blood Count With Diff (11/12/16 15:33) Lactic Acid Sepsis Protocol (11/12/16 15:33) Troponin I (11/12/16 15:33) Urinalysis - C+S If Indicated (11/12/16 15:33) Blood Culture (11/12/16 15:33) Wound Culture And Gram Stain (11/12/16 15:33) Chest, Single Ap (11/12/16 15:33) Ecg Monitoring (11/12/16 15:33) Iv Access Insert/Monitor (11/12/16 15:33) Oximetry (11/12/16 15:33) Sodium Chlor 0.9% 1000 Ml Inj (Ns 1000 M (11/12/16 15:33) Sodium Chlor 0.9% 1000 Ml Inj (Ns 1000 M (11/12/16 15:33) Sodium Chlor 0.9% 1000 Ml Inj (Ns 1000 M (11/12/16 15:33) Basic Metabolic Panel (Bmp) (11/12/16 15:33) Foot, Complete ([id number]) (11/12/16 ) Vancomycin Inj (Vancomycin Inj) (11/12/16 15:43) Aztreonam Inj (Azactam Inj) (11/12/16 15:43) Metronidazole 500 Mg Inj (Flagyl 500 Mg (11/12/16 15:43) Consult Infectious Disease (11/12/16 ) Consult Podiatry (11/12/16 ) (Hub Use Only)Inp Phy Cons/Ref (11/12/16 ) Admit Order (Ed Use Only) (11/12/16 17:15) Norepinephrine-Dextrose Drip (Levophed-D (11/12/16 17:30) Labs Laboratory Tests Test 11/12/16 11/12/16 16:10 16:30 White Blood Count 9.3 TH/MM3 Red Blood Count 2.87 MIL/MM3 Hemoglobin 7.9 GM/DL Hematocrit 24.2 % Mean Corpuscular Volume 84.3 FL Mean Corpuscular Hemoglobin 27.5 PG Mean Corpuscular Hemoglobin 32.6 % Concent Red Cell Distribution Width 17.5 % Platelet Count 253 TH/MM3 Mean Platelet Volume 6.9 FL Neutrophils (%) (Auto) 70.3 % Lymphocytes (%) (Auto) 12.6 % Monocytes (%) (Auto) 15.8 % Eosinophils (%) (Auto) 0.6 % Basophils (%) (Auto) 0.7 % Neutrophils # (Auto) 6.5 TH/MM3 Lymphocytes # (Auto) 1.2 TH/MM3 Monocytes # (Auto) 1.5 TH/MM3 Eosinophils # (Auto) 0.1 TH/MM3 Basophils # (Auto) 0.1 TH/MM3 CBC Comment DIFF FINAL Differential Comment Sodium Level 139 MEQ/L Potassium Level 4.2 MEQ/L Chloride Level 106 MEQ/L Carbon Dioxide Level 26.6 MEQ/L Anion Gap 6 MEQ/L Blood Urea Nitrogen 27 MG/DL Creatinine 1.99 MG/DL Estimat Glomerular Filtration 26 ML/MIN Rate Random Glucose 153 MG/DL Calcium Level 8.9 MG/DL Troponin I 0.59 NG/ML Lactic Acid Level 1.3 mmol/L MDM Medical Decision Making Medical Screen Exam Complete: Yes Emergency Medical Condition: Yes Medical Record Reviewed: Yes Differential Diagnosis 60-year-old female with history of diabetes, HTN, diabetic foot infection and osteomyelitis status post recent transmetatarsal amputation with breakdown of her surgical site, dehiscence here with complaint of increasing pain in the right lower extremity, notably hypotensive in the 60s. Differential includes dehydration, electrolyte abnormality, symptomatic anemia, sepsis, bacteremia, PICC line infection, osteomyelitis. Narrative Course Patient placed on monitor, IV established and blood obtained. She was given 30 mg/kg normal saline bolus and empirically cover with Azactam, Flagyl, vancomycin. Twelve-lead EKG showed sinus bradycardia, rate [address] abnormalities, normal intervals. X-rays of the chest and right foot showing interstitial opacities bilaterally could represent interstitial pulmonary edema. Extensive soft tissue defects/alteration with soft tissue emphysema concerning for osteomyelitis. CBC, BMP, lactate, troponin, urinalysis, wound culture and blood culture were obtained and notable for hemoglobin 7.9 down from 10.2 just 2 weeks ago. No evidence of bleeding. BUN 27, cranium 1.99 slightly worse from her baseline. Troponin slightly elevated 0.59 but again EKG normal, no chest pain and I likely think this is demand ischemia. Infectious disease and podiatry were consulted and patient will be admitted for further management. Urinalysis remains pending at the time of this dictation. Patient did not respond to IV fluids as above and was started on norepinephrine. Myself and Dr. Joyce coat cutter discussed using PICC line versus central line access. She clearly has an obvious source in the right lower extremity and at this time will use her PICC line for vasopressors pending blood cultures. Critical Care Narrative Aggregate critical care time was 70 minutes. Time to perform other separately billable procedures was not included in the critical care time. My time did not include minutes spent treating any other patients simultaneously or on activities that did not directly contribute to the patient's treatment. The services I provided to this patient were to treat and/or prevent clinically significant deterioration that could result in: Cardiopulmonary decompensation, , disability I provided critical care services requiring my management, as noted below: Chart data review, documentation time, medication orders and management, vital sign assessments/reviewing monitor data, ordering and reviewing lab tests, ordering and interpreting/reviewing x-rays and diagnostic studies, care of the patient and discussion of the patient with the admitting physicians. Sepsis Criteria SIRS Criteria (2 or more): RR > 20 or PaCO2 < 32 Sepsis Criteria (SIRS+source): Infect source susp/known Diagnosis Primary Impression: Septic shock Additional Impressions: Osteomyelitis of right foot Qualified Code: M86.9 - Osteomyelitis of right foot, unspecified type Demand ischemia Admitting Information Admitting Physician Requests: Admit Socorro Robledo MD Nov 12, 2016 15:43
--- NOTE | 2016-11-12 16:11 | RADRPT ---
EXAM DATE/TIME: 11/12/2016 15:35 [facility] COMPARISON: CHEST SINGLE AP, October 07, 2016, 13:53. INDICATIONS : Shortness of breath and weakness. MEDICAL HISTORY : Diabetes mellitus type II. Lupus. Hypertension. Myeloproliferative disorder. SURGICAL HISTORY : Cholecystectomy. Hysterectomy. Mastectomy, bilateral. Tonsillectomy. ENCOUNTER: Initial ACUITY: 1 day PAIN SCORE: 0/10 LOCATION: Bilateral chest FINDINGS: Portable AP view of the chest demonstrates a mildly enlarged cardiac silhouette is patient post media n sternotomy. Right upper extremity PICC is present with distal tip in the SVC. There are interstitia l opacities bilaterally involving the upper and lower lung zones. No pneumothorax or definite pleural effusion is seen. Bones and soft tissues demonstrate no acute finding. There are multiple clips over lying the left axillary region. CONCLUSION: 1. Interstitial opacities bilaterally could represent interstitial pulmonary edema. 2. Cardiac silhouette size is mildly enlarged. Femi Barron MD on November 12, 2016 at 16:08 Board Certified Radiologist. This report was verified electronically.
--- NOTE | 2016-11-12 16:13 | RADRPT ---
EXAM DATE/TIME: 11/12/2016 15:39 [facility] COMPARISON: FOOT RIGHT COMPLETE ([id number]), October 25, 2016, 11:29. INDICATIONS : Right foot pain; foot surgery 1 month ago. Open wounds on foot. MEDICAL HISTORY : Diabetes mellitus type II. SURGICAL HISTORY : Partial amputation of right foot. ENCOUNTER: Initial ACUITY: 1 month PAIN SCORE: 6/10 LOCATION: Right foot. FINDINGS: The patient is status post amputation of the foot distal to the metatarsals. There is a large ulcerat ion of the soft tissues of the foot distally with subcutaneous emphysema identified. This is increase d in prominence since the previous study. In addition there is now identified a large ulcer along the plantar aspect of the foot anteriorly. There is questionable cortical interruption of the medial cun eiform distal cortex adjacent to subcutaneous emphysema. The possibility of osteomyelitis should be c onsidered. CONCLUSION: Extensive soft tissue defect/ulceration with soft tissue emphysema and findings concerning for osteom yelitis. Felix Murcia MD on November 12, 2016 at 16:06 Board Certified Radiologist. This report was verified electronically.
[2016-11-12 16:32] LABS: AUTOMATED NEUTROPHIL # 6.5 TH/MM3 (1.8-7.7); BASOPHIL # 0.1 TH/MM3 (0-0.2); BASOPHIL % 0.7 % (0.0-2.0); EOSINOPHIL # 0.1 TH/MM3 (0-0.4); EOSINOPHIL % 0.6 % (0.0-4.0); HEMATOCRIT 24.2 % (35.0-46.0); HEMO FLAGS DIFF FINAL; LYMPH % 12.6 % (9.0-44.0); LYMPHOCYTE # 1.2 TH/MM3 (1.0-4.8); MEAN CELL VOLUME 84.3 FL (80.0-100.0); MEAN CORPUSCULAR HEMOGLOBIN 27.5 PG (27.0-34.0); MEAN CORPUSCULAR HGB CONC 32.6 % (32.0-36.0); MONO % 15.8 % (0.0-8.0); NEUT % 70.3 % (16.0-70.0); PLATELET COUNT 253 TH/MM3 (150-450); RED BLOOD COUNT 2.87 MIL/MM3 (4.00-5.30); RED CELL DISTRIBUTION WIDTH 17.5 % (11.6-17.2); WHITE BLOOD COUNT 9.3 TH/MM3 (4.0-11.0)
[2016-11-12] MEDS ORDERED: LOSA25TA PO (16:34)
[2016-11-12] MEDS ORDERED: DULO1CAP3 PO (16:34)
[2016-11-12] MEDS ORDERED: PERC10TA27 PO (16:34)
[2016-11-12] MEDS ORDERED: METO25TA3 PO (16:34)
[2016-11-12 16:51] LABS: BICARBONATE 26.6 MEQ/L (21.0-32.0); POTASSIUM 4.2 MEQ/L (3.5-5.1)
[2016-11-12] MEDS ORDERED: NOREPINEPHRINE-DEXTROSE DRIP 250 ML IV SCH (17:30)
[2016-11-12] MEDS ORDERED: DEXTROSE 50% IN WATER 50 ML VIAL(D50) IV PUSH PRN (17:30)
[2016-11-12] MEDS ORDERED: VANCOMYCIN INJ 500 MG in SODIUM CHLORIDE 0.9% INJ 100 ML IV ONE (17:30)
[2016-11-12] MEDS ORDERED: MAGNESIUM OXIDE 400 MG TAB PO PRN (17:30)
[2016-11-12] MEDS ORDERED: MAGNESIUM SULFATE INJ 2 GM in SODIUM CHLORIDE 0.9% INJ 96 ML IV PRN (17:30)
[2016-11-12] MEDS ORDERED: POTASSIUM PHOSPHATE MONOBASIC 500 MG TAB PO/TUBE PRN (17:30)
[2016-11-12] MEDS ORDERED: POTASSIUM CHLOR 20 MEQ PREMIX 100 ML IV PRN ×2 (17:30)
[2016-11-12] MEDS ORDERED: MAGNESIUM SULFATE INJ 4 GM in SODIUM CHLORIDE 0.9% INJ 92 ML IV PRN (17:30)
[2016-11-12] MEDS ORDERED: SODIUM PHOSPHATE INJ 30 MMOL in SODIUM CHLOR 0.9% 250 ML INJ 240 ML IV PRN (17:30)
[2016-11-12] MEDS ORDERED: POTASSIUM PHOSPHATE MONOBASIC 500 MG TAB PO PRN (17:30)
[2016-11-12] MEDS ORDERED: POTASSIUM CHLOR 40 MEQ PREMIX 100 ML IV PRN ×2 (17:30)
[2016-11-12] MEDS ORDERED: POTASSIUM PHOSPHATE INJ 30 MMOL in SODIUM CHLOR 0.9% 250 ML INJ 250 ML IV PRN (17:30)
[2016-11-12] MEDS ORDERED: Vancomycin Consult Pharmacy 1 EA OTHER SCH (17:30)
[2016-11-12 17:50] LABS: BLOOD, URINE NEG (NEG); GLUCOSE,URINE NEG (NEG); HYALINE CAST, URINE 7 /lpf (RARE); KETONE, URINE NEG (NEG); NITRITE,URINE NEG (NEG); SQUAMOUS EPITHELIAL CELL URINE 2 /hpf (0-5); URINE COLOR YELLOW (YELLW/STRAW)
[2016-11-12 17:52] LABS: COMMENT (UR) CATH-CULT NOT IND; CULTURE IF INDICATED CATH CULTURE NOT IND
[2016-11-12] MEDS: INSULIN NovoLIN REGULAR SUPPLEMENTAL SCALE SQ SCH ×2 (20:23→23:37)
[2016-11-12] MEDS: LACTATED RINGER'S 1000 ML INJ 1,000 ML IV SCH (20:47)
--- NOTE | 2016-11-12 20:49 | HHI.HP ---
HPI Service Critical Care Medicine Primary Care Physician Alonso Robins MD Admission Diagnosis septic shock, osteo Diagnosis: Travel History International Travel<30 Days: No Contact w/Intl Traveler <30 Da: No Traveled to Known Affected Are: No History of Present Illness This is a 60yF with h/o DM, htn, atrial fibrillation and prior transmetatarsal amputation of right foot in 10/2016 for osteomyelitis. She was on outpatient therapy with vancomycin and levaquin through existing RUE PICC line. She presents to the ED with complaints of weakness and right foot pain over the last 2-3 days. She was hypotensive in the emergency department which was only minimally responsive to 30 mL/kg ivf bolus. she was started on Levophed in the emergency department. In the ER, xray of the foot demonstrated gas in the soft tissues, concerning for recurrent, worsening osteomyelitis. When I evaluated the patient, she was somnolent but arousable. However, she was too somnolent to add any additional history and kept falling asleep on my exam. laboratory data is significant for wbc 9.3, hgb 7.9, cr 1.99, lactate 1.3, Trop 0.59. Critical care medicine is consulted to evaluate and manage septic shock in the setting of likely recurrent right foot osteomyelitis. Review of Systems ROS Limitations: Clinical Condition ROS somnolent, arousable, but does not participate in history at all. 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 per chart review: Asthma Lupus anxiety depression diabetes diabetic peripheral neuropathy Past Surgical History unobtainable secondary to the clinical condition of the patient. per chart review: cholecystectomy colostomy with colostomy reversal PCI x 2 bilateral mastectomy prophylactically due to family history of Breast CA bilateral breast augmentation CABG x 5 Hysterectomy tonsillectomy right foot toe amputation Reported Medications patient is unable to provide complete home medication list due to her clinical condition. per chart review: Levaquin (Levofloxacin) 750 Mg Tab 750 Mg PO Q24H Losartan (Losartan Potassium) 25 Mg Tab 25 Mg PO DAILY Percocet (Oxycodone-Acetaminophen) 10-325 mg Tab 1 Tab PO QID Metoprolol Tartrate 25 Mg Tab 12.5 Mg PO BID Duloxetine DR (Duloxetine HCl) 60 Mg Capdr 60 Mg PO BID Alendronate (Alendronate Sodium) 70 Mg Tab 70 Mg PO Q7D Isosorbide Mononitrate ER (Isosorbide Mononitrate) 30 Mg Shonda 30 Mg PO DAILY Lipitor (Atorvastatin Calcium) 40 Mg Tab 40 Mg PO HS Vitamin D (Cholecalciferol) 5,000 Unit Tab 5,000 Units PO DAILY Montelukast (Montelukast Sodium) 10 Mg Tab 10 Mg PO HS Novolin 70-30 Inj (Insulin Human Isoph/Insulin Regular) 1,000 Unit/10 Ml Vial 30 Units SQ BID Novolin R Inj (Insulin Human Regular) 1,000 Unit/10 Ml Vial SQ ACHS Sliding Scale As Directed. Tizanidine (Tizanidine HCl) 4 Mg Cap 4 Mg PO TID Gabapentin 300 Mg Cap 300 Mg PO Q6HR Aspirin 81 Mg Chew 81 Mg PO DAILY Amiodarone (Amiodarone HCl) 200 Mg Tab 200 Mg PO DAILY Active Ordered Medications See MAR Family History unobtainable secondary to the clinical condition of the patient. unlikely to be contributory to her acute illness. Social History unobtainable secondary to the clinical condition of the patient. per chart review: no tob, etoh, doa. Physical Exam Vital Signs Vital Signs Date Time Temp Pulse Resp B/P Pulse Ox O2 Delivery O2 Flow Rate FiO2 11/12/16 19:43 100 Nasal Cannula 5.00 11/12/16 19:27 69 18 120/65 98 Nasal Cannula 2 11/12/16 18:31 65 22 111/59 100 Nasal Cannula 2 11/12/16 18:10 64 18 93/54 98 Nasal Cannula 2 11/12/16 17:53 62 18 90/55 97 11/12/16 17:42 62 16 87/48 97 Nasal Cannula 2 11/12/16 16:51 60 20 71/42 98 11/12/16 16:30 67 22 74/39 91 Nasal Cannula 3 11/12/16 15:44 Nasal Cannula 2 96 11/12/16 15:34 61 20 76/41 91 Room Air 11/12/16 15:17 97.4 65 24 67/38 94 Room Air Physical Exam gen: middle-aged female, lying in bed. very somnolent. arousable, but falls back asleep. protecting her airway. heent: perrl. mucous membranes dry. neck: no jvd. trachea midline. chest: on NC o2. equal, bilateral. clear to auscultation cv: normal rate, regular rhythm. no appreciable murmur abd: soft, nontender, nondistended. no guarding. extr: right foot wrapped in brenda wrap, purulence from amputation site. erythema noted up to ankle. neuro: RASS -2. follows commands. very inattentive. difficult to remain awake, but awakens to loud voice. protecting airway. +gag. + cough. no focal deficits. Laboratory Laboratory Tests Test 11/12/16 11/12/16 11/12/16 16:10 16:30 17:11 White Blood Count 9.3 Red Blood Count 2.87 Hemoglobin 7.9 Hematocrit 24.2 Mean Corpuscular Volume 84.3 Mean Corpuscular Hemoglobin 27.5 Mean Corpuscular Hemoglobin 32.6 Concent Red Cell Distribution Width 17.5 Platelet Count 253 Mean Platelet Volume 6.9 Neutrophils (%) (Auto) 70.3 Lymphocytes (%) (Auto) 12.6 Monocytes (%) (Auto) 15.8 Eosinophils (%) (Auto) 0.6 Basophils (%) (Auto) 0.7 Neutrophils # (Auto) 6.5 Lymphocytes # (Auto) 1.2 Monocytes # (Auto) 1.5 Eosinophils # (Auto) 0.1 Basophils # (Auto) 0.1 CBC Comment DIFF FINAL Differential Comment Sodium Level 139 Potassium Level 4.2 Chloride Level 106 Carbon Dioxide Level 26.6 Anion Gap 6 Blood Urea Nitrogen 27 Creatinine 1.99 Estimat Glomerular Filtration 26 Rate Random Glucose 153 Calcium Level 8.9 Troponin I 0.59 Lactic Acid Level 1.3 Urine Color YELLOW Urine Turbidity HAZY Urine pH 5.0 Urine Specific [place] 1.014 Urine Protein TRACE Urine Glucose (UA) NEG Urine Ketones NEG Urine Occult Blood NEG Urine Nitrite NEG Urine Bilirubin NEG Urine Urobilinogen LESS THAN 2.0 Urine Leukocyte Esterase NEG Urine RBC 3 Urine WBC 1 Urine Squamous Epithelial 2 Cells Urine Amorphous Sediment RARE Urine Hyaline Casts 7 Microscopic Urinalysis Comment CATH-CULT NOT IND Date/Time Procedure Status Source Growth 11/12/16 16:20 Gram Stain Received Wound Foot Pending 11/12/16 16:20 Wound Culture Received Wound Foot Pending 11/12/16 16:20 Aerobic Blood Culture Received Blood Peripheral Pending 11/12/16 16:20 Anaerobic Blood Culture Received Blood Peripheral Pending Result Diagram: 11/12/16 1610 11/12/16 1610 Imaging Last Impressions Chest X-Ray 11/12/16 1533 Signed Impressions: Service Date/Time: Saturday, November 12, 2016 15:35 - CONCLUSION: 1. Interstitial opacities bilaterally could represent interstitial pulmonary edema. 2. Cardiac silhouette size is mildly enlarged. Femi Barron MD Foot X-Ray 11/12/16 0000 Signed Impressions: Service Date/Time: Saturday, November 12, 2016 15:39 - CONCLUSION: Extensive soft tissue defect/ulceration with soft tissue emphysema and findings concerning for osteomyelitis. Felix Murcia MD Assessment and Plan Assessment and Plan Assessment: 60yF with history of DM, peripheral vascular disease and neuropathy who presents with RLE cellulitis and likely osteomyelitis with associated septic shock on vasopressors. She remains critically ill. Certainly, she has a PICC line which has been in at home. Though this could be a source of her infection, it is much less likely and much more likely that her purulent right foot with evidence of air and likely osteomyelitis is the source of her septic shock. we will plan to keep the PICC line as central access for now. cultures have been drawn peripherally and from the PICC line from outside facility. If these are positive or if she becomes worseningly unstable, then we will plan to d/c PICC line and place new central access. However, at this point, with a clearly identified source, we will plan to continue PICC line and use this for central access. Plan by systems: Neuro: metabolic encephalopathy Depression Diabetic neuropathy -- secondary to sepsis -- avoid long-acting sedatives -- hold cymbalta -- hold gabapentin -- hold home tizanidine Resp: Atelectasis -- wean o2 by NC for goal spo2 > 90% CV: Septic shock Type II NSTEMI/demand ischemia h/o hypertension Atrial fibrillation -- continue home amiodarone -- hold antihypertensives given shock -- s/p 30mL/kg bolus -- LR @ 150 cc/hr -- norepinephrine for goal map > 65 mmHg -- trend troponins. likely elevated secondary to stress and demand ischemia combined with poor renal clearance. Renal: Acute kidney injury -- likely secondary to sepsis -- york catheter -- strict i/o's -- iv hydration as above. FEN/GI: Acute intravascular volume depletion -- ICU electrolyte protocol -- ivf as above -- npo. will perform nursing bedside swallow eval and advance diet if she wakes up more. Heme/ID: Right foot osteomyelitis septic shock -- broaden abx to Vancomycin, Aztreonam, Flagyl -- ID consult -- has prior grown PSAE and MRSA in wound. -- add 500mg vanc iv x 1 now to get to total loading dose of 20mg/kg iv x 1, then pharmacy assistance with dosing. -- aztreonam 1gm iv q8hr given renal function. -- cultures from wound, blood. Endocrine: diabetes hyperglycemia of critical illness -- ssi, med, q6h Prophyalxis: -- SQH, SCDs, protonix iv. Lines: -- OSH PICC line remains for now. may require new central access. -- [place] Dispo: -- admit to ICU. I have spent in excess of 41 minutes discontinuously in the care and management of this critically ill patient. This time is exclusive of procedures and includes but is not limited to evaluation of the patient, review of the medical record, discussions with consultants, nursing staff, respiratory therapy. Code Status Full Code Xiang Joyce MD Nov 12, 2016 20:48
[2016-11-12] MEDS ORDERED: VANCOMYCIN INJ 500 MG in SODIUM CHLOR 0.9% 250 ML INJ 250 ML IV ONE (21:00)
[2016-11-12] MEDS ORDERED: ONDANSETRON HCL 4 MG/2 ML VIAL IV PUSH PRN (22:45)
[2016-11-12] MEDS ORDERED: CHLORHEXIDINE GLUCONATE 2 % 1 PACK (2 CLOTHS)(extra cloths) TOPICAL PRN (22:45)
[2016-11-12] MEDS: PANTOPRAZOLE SODIUM 40 MG VIAL IV PUSH SCH (22:51)
[2016-11-12] MEDS: HEPARIN SODIUM - SQ 10,000 UNITS/ML VIAL SQ SCH (22:51)
[2016-11-12] MEDS: metroNIDAZOLE 500 MG INJ 100 ML IV SCH (22:52)
[2016-11-12] MEDS: oxyCODONE/ACETAMINOPHEN 10 MG/325 MG TAB PO PRN (22:52)
[2016-11-12] MEDS: ATORVASTATIN 40 MG TAB PO SCH (22:52)
[2016-11-12] MEDS: AZTREONAM INJ 1,000 MG in SODIUM CHLORIDE 0.9% INJ 100 ML IV SCH (23:38)
[2016-11-13] VITALS (13 sets, daily range): BP systolic 108–141; BP diastolic 55–82; PULSE 78–112; RESP 18–28; TEMP 98–99.4; O2SAT 90–100
[2016-11-13] MEDS: ALBUTEROL SULFATE 90 MCG/ACT HFA 18 GM INHALER INH PRN (00:32)
[2016-11-13] MEDS: CHLORHEXIDINE GLUCONATE 2 % 1 PACK (2 CLOTHS)(taper/protocol) TOPICAL SCH (03:15)
[2016-11-13] MEDS: metroNIDAZOLE 500 MG INJ 100 ML IV SCH ×6 (03:15→21:01)
[2016-11-13] MEDS: LACTATED RINGER'S 1000 ML INJ 1,000 ML IV SCH ×4 (03:15→21:02)
[2016-11-13 04:25] LABS: HEMATOCRIT 28.5 % (35.0-46.0); MEAN CELL VOLUME 86.3 FL (80.0-100.0); MEAN CORPUSCULAR HEMOGLOBIN 26.6 PG (27.0-34.0); MEAN CORPUSCULAR HGB CONC 30.8 % (32.0-36.0); PLATELET COUNT 325 TH/MM3 (150-450); RED BLOOD COUNT 3.31 MIL/MM3 (4.00-5.30); RED CELL DISTRIBUTION WIDTH 17.5 % (11.6-17.2); REVIEW FLAG FINAL; WHITE BLOOD COUNT 16.9 TH/MM3 (4.0-11.0)
[2016-11-13 04:55] LABS: BICARBONATE 22.2 MEQ/L (21.0-32.0); POTASSIUM 4.2 MEQ/L (3.5-5.1)
[2016-11-13] MEDS ORDERED: RESP: ALBUTEROL 2.5 MG/3 ML NEB (PRN) NEB (05:15)
[2016-11-13] MEDS ORDERED: RESP: ALBUTEROL 2.5 MG/IPRATROPIUM 0.5 MG NEB (SCH) NEB ONE (05:15)
[2016-11-13] MEDS: INSULIN NovoLIN REGULAR SUPPLEMENTAL SCALE SQ SCH ×4 (05:26→23:19)
[2016-11-13] MEDS: HEPARIN SODIUM - SQ 10,000 UNITS/ML VIAL SQ SCH ×3 (05:26→21:02)
[2016-11-13] MEDS: methylPREDNISolone SOD SUCC 125 MG/2 ML VIAL IV PUSH SCH ×4 (05:26→23:19)
[2016-11-13 06:07] LABS: BLOOD GAS BASE EXCESS -6.5 mmol/L (-2-2); BLOOD GAS HCO3 19 mmol/L (22-26); BLOOD GAS METHEMOGLOBIN 1.2 % (0-2); BLOOD GAS O2 HGB SATURATION 88 % (90-100); BLOOD GAS OXYGEN CONTENT 10.9 Vol % (12.0-20.0); BLOOD GAS PCO2 38 mmHg (38-42); BLOOD GAS PO2 69 mmHg (61-120); BLOOD GAS TOTAL HGB 8.7 G/DL (12.0-16.0); CRITICAL VALUE YES; OXYGEN DEVICE BIPAP; TEMP CORR TO 98.6; VENT SETTINGS IPAP10/EPAP5
[2016-11-13 06:08] LABS: DRAW SITE RT RADIAL; FIO2 40 %; NUMBER OF ARTERIAL PUNCTURES 1; STAT YES; ULNAR PULSE PRESENT
--- NOTE | 2016-11-13 06:08 | RADRPT ---
EXAM DATE/TIME: 11/13/2016 05:37 [facility] COMPARISON: CHEST SINGLE AP, November 12, 2016, 15:35. INDICATIONS : Shortness of breath. MEDICAL HISTORY : Diabetes mellitus type II. Lupus. Hypertension. Myeloproliferative SURGICAL HISTORY : Cholecystectomy. Hysterectomy. Mastectomy, bilateral. Tonsillectomy. ENCOUNTER: Subsequent ACUITY: 1 week PAIN SCORE: Non-responsive. LOCATION: Bilateral chest FINDINGS: A single view of the chest demonstrates bibasilar opacities. Heart enlargement with evidence of previ ous median sternotomy. There is slight interstitial prominence. Right-sided PICC line unchanged in po sition. The cardiomediastinal contours are unremarkable. Osseous structures are intact. CONCLUSION: Persistent bibasilar consolidation. Cardiomegaly and interstitial prominence. Jean Costa MD on November 13, 2016 at 6:05 Board Certified Radiologist. This report was verified electronically.
[2016-11-13] MEDS ORDERED: SODIUM BICARBONATE 8.4% INJ 50 MEQ/50 ML SYR IV PUSH ONE (07:45)
--- NOTE | 2016-11-13 07:45 | HHI.CCPN ---
Subjective Remarks/Hospital Course DUPLICATE NOTE Objective Vital Signs Date Time Temp Pulse Resp B/P Pulse Ox O2 Delivery O2 Flow Rate FiO2 11/13/16 06:45 94 50 11/13/16 06:00 87 11/13/16 05:00 Bi-Pap 11/13/16 04:00 98.0 20 128/77 11/13/16 01:30 6.00 Intake and Output 11/12/16 11/12/16 11/13/16 08:00 16:00 00:00 Intake Total 406 ml Output Total 600 ml Balance -194 ml Result Diagram: 11/13/16 0355 11/13/16 0355 Claudia Kahn MD Nov 13, 2016 07:44 Output Total 600 ml Balance -194 ml Result Diagram: 11/13/16 0355 11/13/16 0355 Other Results Laboratory Tests Test 11/13/16 05:54 Blood Gas Puncture Site RT RADIAL Blood Gas Patient Temperature 98.6 Blood Gas HCO3 19 mmol/L (22-26) Blood Gas Base Excess -6.5 mmol/L (-2-2) Blood Gas Oxygen Saturation 88 % (90-100) Arterial Blood pH 7.31 (7.380-7.420) Arterial Blood Partial 38 mmHg (38-42) Pressure CO2 Arterial Blood Partial 69 mmHg Pressure O2 (61-120) Arterial Blood Oxygen Content 10.9 Vol % (12.0-20.0) Arterial Blood 2.0 % (0-4) Carboxyhemoglobin Arterial Blood Methemoglobin 1.2 % (0-2) Blood Gas Hemoglobin 8.7 G/DL (12.0-16.0) Oxygen Delivery Device BIPAP Blood Gas Ventilator Setting IPAP10/EPAP5 Blood Gas Inspired Oxygen 40 % Imaging Last Impressions Chest X-Ray 11/12/16 1533 Signed Impressions: Service Date/Time: Saturday, November 12, 2016 15:35 - CONCLUSION: 1. Interstitial opacities bilaterally could represent interstitial pulmonary edema. 2. Cardiac silhouette size is mildly enlarged. Femi Barron MD Foot X-Ray 11/12/16 0000 Signed Impressions: Service Date/Time: Saturday, November 12, 2016 15:39 - CONCLUSION: Extensive soft tissue defect/ulceration with soft tissue emphysema and findings concerning for osteomyelitis. Felix Murcia MD Objective Remarks gen: middle-aged female, lying in bed. very somnolent. arousable, but falls back asleep. protecting her airway. heent: perrl. mucous membranes dry. neck: no jvd. trachea midline. chest: on NC o2. equal, bilateral. clear to auscultation cv: normal rate, regular rhythm. no appreciable murmur abd: soft, nontender, nondistended. no guarding. extr: right foot wrapped in brenda wrap, purulence from amputation site. erythema noted up to ankle. neuro: RASS -2. follows commands. very inattentive. difficult to remain awake, but awakens to loud voice. protecting airway. +gag. + cough. no focal deficits. A/P Assessment and Plan Assessment: 60yF with history of DM, peripheral vascular disease and neuropathy who presents with RLE cellulitis and likely osteomyelitis with associated septic shock on vasopressors. She remains critically ill. Certainly, she has a PICC line which has been in at home. Though this could be a source of her infection, it is much less likely and much more likely that her purulent right foot with evidence of air and likely osteomyelitis is the source of her septic shock. we will plan to keep the PICC line as central access for now. cultures have been drawn peripherally and from the PICC line from outside facility. If these are positive or if she becomes worseningly unstable, then we will plan to d/c PICC line and place new central access. However, at this point, with a clearly identified source, we will plan to continue PICC line and use this for central access. Plan by systems: Neuro: metabolic encephalopathy Depression Diabetic neuropathy -- secondary to sepsis -- avoid long-acting sedatives -- hold cymbalta -- hold gabapentin -- hold home tizanidine Resp: Atelectasis -- wean o2 by NC for goal spo2 > 90% CV: Septic shock Type II NSTEMI/demand ischemia h/o hypertension Atrial fibrillation -- continue home amiodarone -- hold antihypertensives given shock -- s/p 30mL/kg bolus -- LR @ 150 cc/hr -- norepinephrine for goal map > 65 mmHg -- trend troponins. likely elevated secondary to stress and demand ischemia combined with poor renal clearance. Renal: Acute kidney injury -- likely secondary to sepsis -- [place]ork catheter -- strict i/o's -- iv hydration as above. FEN/GI: Acute intravascular volume depletion -- ICU electrolyte protocol -- ivf as above -- npo. will perform nursing bedside swallow eval and advance diet if she wakes up more. Heme/ID: Right foot osteomyelitis septic shock -- broaden abx to Vancomycin, Aztreonam, Flagyl -- ID consult -- has prior grown PSAE and MRSA in wound. -- add 500mg vanc iv x 1 now to get to total loading dose of 20mg/kg iv x 1, then pharmacy assistance with dosing. -- aztreonam 1gm iv q8hr given renal function. -- cultures from wound, blood. Endocrine: diabetes hyperglycemia of critical illness -- ssi, med, q6h Prophyalxis: -- SQH, SCDs, protonix iv. Lines: -- OSH PICC line remains for now. may require new central access. -- [place] Dispo: -- admit to ICU. I have spent in excess of 41 minutes discontinuously in the care and management of this critically ill patient. This time is exclusive of procedures and includes but is not limited to evaluation of the patient, review of the medical record, discussions with consultants, nursing staff, respiratory therapy. Claudia Kahn MD Nov 13, 2016 07:44
--- NOTE | 2016-11-13 08:04 | HHI.CCPN ---
Subjective Remarks/Hospital Course This is a 60yF with h/o DM, htn, atrial fibrillation and prior transmetatarsal amputation of right foot (podiatry Dr. Spaulding) in 10/2016 for osteomyelitis. She was on outpatient therapy with vancomycin and levaquin through existing RUE PICC line. She presents to the ED with complaints of weakness and right foot pain over the last 2-3 days. She was hypotensive in the emergency department which was only minimally responsive to 30 mL/kg ivf bolus. she was started on Levophed in the emergency department. In the ER, xray of the foot demonstrated gas in the soft tissues, concerning for recurrent, worsening osteomyelitis. When I evaluated the patient, she was somnolent but arousable. However, she was too somnolent to add any additional history and kept falling asleep on my exam. laboratory data is significant for wbc 9.3, hgb 7.9, cr 1.99, lactate 1.3, Trop 0.59. Critical care medicine is consulted to evaluate and manage septic shock in the setting of likely recurrent right foot osteomyelitis. SUBJ 11/13: Patient remains on 3 mics of Levophed for septic shock. Worsening hypoxemic respiratory failure now on BiPAP. Review of previous records indicated that Dr. Cooper has initially recommended right below-knee amputation. Dr. Wheeler was asked to give a second opinion. Patient opted for a limb salvage attempt. ID last admission was Dr. Conner. Right foot x-ray showing probable osteomyelitis. Vascular surgery may need to be re-consulted for right BKA- await ID, podiatry input Objective Vital Signs Date Time Temp Pulse Resp B/P Pulse Ox O2 Delivery O2 Flow Rate FiO2 11/13/16 06:45 94 50 11/13/16 06:00 87 11/13/16 05:00 Bi-Pap 11/13/16 04:00 98.0 20 128/77 11/13/16 01:30 6.00 Intake and Output 11/12/16 11/12/16 11/13/16 08:00 16:00 00:00 Intake Total 406 ml Output Total 600 ml Balance -194 ml Result Diagram: 11/13/16 0355 11/13/16 0355 Other Results Laboratory Tests Test 11/13/16 05:54 Blood Gas Puncture Site RT RADIAL Blood Gas Patient Temperature 98.6 Blood Gas HCO3 19 mmol/L (22-26) Blood Gas Base Excess -6.5 mmol/L (-2-2) Blood Gas Oxygen Saturation 88 % (90-100) Arterial Blood pH 7.31 (7.380-7.420) Arterial Blood Partial 38 mmHg (38-42) Pressure CO2 Arterial Blood Partial 69 mmHg Pressure O2 (61-120) Arterial Blood Oxygen Content 10.9 Vol % (12.0-20.0) Arterial Blood 2.0 % (0-4) Carboxyhemoglobin Arterial Blood Methemoglobin 1.2 % (0-2) Blood Gas Hemoglobin 8.7 G/DL (12.0-16.0) Oxygen Delivery Device BIPAP Blood Gas Ventilator Setting IPAP10/EPAP5 Blood Gas Inspired Oxygen 40 % Imaging Last Impressions Chest X-Ray 11/12/16 1533 Signed Impressions: Service Date/Time: Saturday, November 12, 2016 15:35 - CONCLUSION: 1. Interstitial opacities bilaterally could represent interstitial pulmonary edema. 2. Cardiac silhouette size is mildly enlarged. Femi Barron MD Foot X-Ray 11/12/16 0000 Signed Impressions: Service Date/Time: Saturday, November 12, 2016 15:39 - CONCLUSION: Extensive soft tissue defect/ulceration with soft tissue emphysema and findings concerning for osteomyelitis. Felix Murcia MD Objective Remarks gen: middle-aged female, lying in bed. very somnolent. arousable, but falls back asleep. Now on BiPAP heent: perrl. mucous membranes dry. neck: no jvd. trachea midline. chest: on NC o2. equal, bilateral. clear to auscultation cv: normal rate, regular rhythm. no appreciable murmur abd: soft, nontender, nondistended. no guarding. extr: right foot wrapped in brenda wrap, (Per prevous note purulence from amputation site. erythema noted up to ankle) neuro: Somnolent but wakes up easily. follows commands. very inattentive. difficult to remain awake, protecting airway. +gag. + cough. no focal deficits. A/P Assessment and Plan Assessment: 60yF with history of DM, peripheral vascular disease and neuropathy who presents with RLE cellulitis and likely osteomyelitis with associated septic shock on vasopressors. She remains critically ill. Certainly, she has a PICC line which has been in at home. Though this could be a source of her infection, it is much less likely and much more likely that her purulent right foot with evidence of air and likely osteomyelitis is the source of her septic shock. we will plan to keep the PICC line as central access for now. cultures have been drawn peripherally and from the PICC line from outside facility. If these are positive or if she becomes worseningly unstable, then we will plan to d/c PICC line and place new central access. However, at this point, with a clearly identified source, we will plan to continue PICC line and use this for central access. Plan by systems: Neuro: metabolic encephalopathy Depression Diabetic neuropathy -- secondary to sepsis -- avoid long-acting sedatives -- hold cymbalta, gabapentin and tizanidine Resp: Acute hypoxemic respiratory failure Atelectasis --Currently on BiPAP 10 over 5 --Patient may be developing acute lung injury secondary to sepsis --DuoNeb every 4 hours scheduled and when necessary -- wean o2 by NC for goal spo2 > 90% CV: Septic shock Type II NSTEMI/demand ischemia h/o hypertension Atrial fibrillation -- continue home amiodarone -- Start aspirin 81 mg daily (checked with pharmacy -only negligible cross- reactivity btw Bactrim-Aspirin) -- hold antihypertensives given shock -- s/p 30mL/kg bolus -- LR @ 150 cc/hr -- norepinephrine for goal map > 65 mmHg -- trend troponins. likely elevated secondary to stress and demand ischemia combined with poor renal clearance. -- Cardiology consulted, for NSTEMI and in anticipation of possible BKA clearance -- ECHO Renal: Acute kidney injury -- likely secondary to sepsis -- [place] catheter -- strict i/o's -- iv hydration as above. -- Creatinine improved from 1.99-1.55 FEN/GI: Acute intravascular volume depletion -- ICU electrolyte protocol -- ivf as above -- npo. will perform nursing bedside swallow eval and advance diet if she wakes up more. Heme/ID: Right foot osteomyelitis, cellulitis septic shock -- ABX- Vancomycin, Aztreonam, Flagyl -- ID consult, previously seen by Dr. Conner -- has prior grown PSAE and MRSA in wound. -- s/p additional 500mg vanc iv for total loading dose of 20mg/kg iv x 1, pharmacy assistance with dosing. -- aztreonam 1gm iv q8hr given renal function. -- cultures from wound, blood. Endocrine: diabetes hyperglycemia of critical illness -- ssi, med, q6h Prophyalxis: -- SQH, SCDs, protonix iv. Lines: -- OSH PICC line remains for now. may require new central access. -- [place] Dispo: -- admit to ICU. I have spent in excess of 35 minutes discontinuously in the care and management of this critically ill patient. This time is exclusive of procedures and includes but is not limited to evaluation of the patient, review of the medical record, discussions with consultants, nursing staff, respiratory therapy. Claudia Kahn MD Nov 13, 2016 08:04
--- NOTE | 2016-11-13 08:06 | PD.CONS ---
History of Present Illness Service Podiatry Consult Requested By Reason for Consult right foot infection Primary Care Physician Alonso Robins MD Diagnoses: (1) Foot ulcer, left (2) Diabetic foot infection (3) Osteomyelitis of right foot History of Present Illness Pt well known to podiatry service with presentation to hospital is critical high vanc levels with worsening foot infection with cuboid bone infection and failed Chopart's amputation. 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 Physical Exam Vital Signs Vital Signs Date Time Temp Pulse Resp B/P Pulse Ox O2 Delivery O2 Flow Rate FiO2 11/13/16 06:45 94 50 11/13/16 06:00 87 11/13/16 05:04 100 40 11/13/16 05:00 Bi-Pap 50 11/13/16 04:00 112 11/13/16 04:00 98.0 112 20 128/77 90 11/13/16 03:15 Venturi Mask 50 11/13/16 02:00 80 11/13/16 01:30 Nasal Cannula 6.00 11/13/16 00:11 20 11/13/16 00:00 80 11/13/16 00:00 98.9 78 18 108/55 93 11/12/16 22:00 71 11/12/16 22:00 Nasal Cannula 3.00 11/12/16 21:35 96 Nasal Cannula 3.00 11/12/16 21:26 98.5 73 20 102/56 91 11/12/16 21:23 65 20 111/65 98 Nasal Cannula 3 11/12/16 19:43 100 Nasal Cannula 5.00 11/12/16 19:27 69 18 120/65 98 Nasal Cannula 2 11/12/16 18:31 65 22 111/59 100 Nasal Cannula 2 11/12/16 18:10 64 18 93/54 98 Nasal Cannula 2 11/12/16 17:53 62 18 90/55 97 11/12/16 17:42 62 16 87/48 97 Nasal Cannula 2 11/12/16 16:51 60 20 71/42 98 11/12/16 16:30 67 22 74/39 91 Nasal Cannula 3 11/12/16 15:44 Nasal Cannula 2 96 11/12/16 15:34 61 20 76/41 91 Room Air 11/12/16 15:17 97.4 65 24 67/38 94 Room Air Physical Exam GENERAL: This is a well-nourished, well-developed patient, in no apparent distress. SKIN: No rashes, ecchymoses or lesions. Cool and dry. HEAD: Atraumatic. Normocephalic. No temporal or scalp tenderness. EYES: Pupils equal round and reactive. Extraocular motions intact. No scleral icterus. No injection or drainage. ENT: Nose without bleeding, purulent drainage or septal hematoma. Throat without erythema, tonsillar hypertrophy or exudate. Uvula midline. Airway patent. NECK: Trachea midline. No JVD or lymphadenopathy. Supple, nontender, no meningeal signs. CARDIOVASCULAR: Regular rate and rhythm without murmurs, gallops, or rubs. RESPIRATORY: Clear to auscultation. Breath sounds equal bilaterally. No wheezes , rales, or rhonchi. GASTROINTESTINAL: Abdomen soft, non-tender, nondistended. No hepato-splenomegaly , or palpable masses. No guarding. MUSCULOSKELETAL: Extremities without clubbing, cyanosis, or edema. No joint tenderness, effusion, or edema noted. No calf tenderness. Negative Homans sign bilaterally. NEUROLOGICAL: Awake and alert. Cranial nerves II through XII intact. Motor and sensory grossly within normal limits. Five out of 5 muscle strength in all muscle groups. Normal speech. Laboratory Laboratory Tests Test 11/12/16 11/12/16 11/12/16 11/12/16 16:10 16:30 17:11 21:15 White Blood Count 9.3 Red Blood Count 2.87 Hemoglobin 7.9 Hematocrit 24.2 Mean Corpuscular Volume 84.3 Mean Corpuscular Hemoglobin 27.5 Mean Corpuscular Hemoglobin 32.6 Concent Red Cell Distribution Width 17.5 Platelet Count 253 Mean Platelet Volume 6.9 Neutrophils (%) (Auto) 70.3 Lymphocytes (%) (Auto) 12.6 Monocytes (%) (Auto) 15.8 Eosinophils (%) (Auto) 0.6 Basophils (%) (Auto) 0.7 Neutrophils # (Auto) 6.5 Lymphocytes # (Auto) 1.2 Monocytes # (Auto) 1.5 Eosinophils # (Auto) 0.1 Basophils # (Auto) 0.1 CBC Comment DIFF FINAL Differential Comment Sodium Level 139 Potassium Level 4.2 Chloride Level 106 Carbon Dioxide Level 26.6 Anion Gap 6 Blood Urea Nitrogen 27 Creatinine 1.99 Estimat Glomerular Filtration 26 Rate Random Glucose 153 Calcium Level 8.9 Troponin I 0.59 Lactic Acid Level 1.3 Urine Color YELLOW Urine Turbidity HAZY Urine pH 5.0 Urine Specific [place] 1.014 Urine Protein TRACE Urine Glucose (UA) NEG Urine Ketones NEG Urine Occult Blood NEG Urine Nitrite NEG Urine Bilirubin NEG Urine Urobilinogen LESS THAN 2.0 Urine Leukocyte Esterase NEG Urine RBC 3 Urine WBC 1 Urine Squamous Epithelial 2 Cells Urine Amorphous Sediment RARE Urine Hyaline Casts 7 Microscopic Urinalysis Comment CATH-CULT NOT IND Nasal Screen MRSA (PCR) NEGATIVE Test 11/13/16 11/13/16 03:55 05:54 White Blood Count 16.9 Red Blood Count 3.31 Hemoglobin 8.8 Hematocrit 28.5 Mean Corpuscular Volume 86.3 Mean Corpuscular Hemoglobin 26.6 Mean Corpuscular Hemoglobin 30.8 Concent Red Cell Distribution Width 17.5 Platelet Count 325 Mean Platelet Volume 6.7 Sodium Level 142 Potassium Level 4.2 Chloride Level 110 Carbon Dioxide Level 22.2 Anion Gap 10 Blood Urea Nitrogen 22 Creatinine 1.55 Estimat Glomerular Filtration 34 Rate Random Glucose 146 Calcium Level 8.5 Troponin I 0.29 Blood Gas Puncture Site RT RADIAL Blood Gas Patient Temperature 98.6 Blood Gas HCO3 19 Blood Gas Base Excess -6.5 Blood Gas Oxygen Saturation 88 Arterial Blood pH 7.31 Arterial Blood Partial 38 Pressure CO2 Arterial Blood Partial 69 Pressure O2 Arterial Blood Oxygen Content 10.9 Arterial Blood 2.0 Carboxyhemoglobin Arterial Blood Methemoglobin 1.2 Blood Gas Hemoglobin 8.7 Oxygen Delivery Device BIPAP Blood Gas Ventilator Setting IPAP10/EPAP5 Blood Gas Inspired Oxygen 40 Date/Time Procedure Status Source Growth 11/12/16 16:20 Gram Stain Received Wound Foot Pending 11/12/16 16:20 Wound Culture Received Wound Foot Pending 11/12/16 16:20 Aerobic Blood Culture Received Blood Peripheral Pending 11/12/16 16:20 Anaerobic Blood Culture Received Blood Peripheral Pending Result Diagram: 11/13/16 0355 11/13/16 0355 Imaging Xray shows concerns for osteo remaining midfoot/hindfoot bone, mostly cuboid Course Right foot Choparts dehiscence with drainage and redness and edema Senation loss Pulses nonpalpable Assessment and Plan Assessment and Plan Right foot diabetic foot infection I do not see a remaining foot level amputation pt will tolerate and would have to continue correction antibiotics. Plan is have vascular assess for below knee amputation Plan was briefly discussed with patient and she seems agreeable to consider below knee amputation Will await Vascular recommendation Problem Qualifiers (1) Foot ulcer, left: Qualified Code: L97.524 - Foot ulcer, left, with necrosis of bone (2) Osteomyelitis of right foot: Qualified Code: M86.9 - Osteomyelitis of right foot, unspecified type José Luis Baker DPM Nov 13, 2016 08:06
[2016-11-13] MEDS: AMIODARONE 200 MG TAB PO SCH (08:36)
[2016-11-13] MEDS: ASPIRIN 81 MG CHEW TAB CHEW SCH (08:36)
[2016-11-13] MEDS: AZTREONAM INJ 1,000 MG in SODIUM CHLORIDE 0.9% INJ 100 ML IV SCH ×3 (08:36→23:19)
[2016-11-13] MEDS: RESP: ALBUTEROL 2.5 MG/IPRATROPIUM 0.5 MG NEB (SCH) NEB ×5 (09:05→23:43)
--- NOTE | 2016-11-13 09:48 | PD.CAR.PN ---
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 I saw the patient in October 2016 and recommended below knee amputation. At this point, we have exhausted all other salvage options and the patient is recovering from a septic episode. Will take for R BKA in next 24 to 48h when well resuscitated and stable J Objective: Vital Signs Date Time Temp Pulse Resp B/P Pulse Ox O2 Delivery O2 Flow Rate FiO2 11/13/16 09:06 92 Nasal Cannula 6.00 11/13/16 06:45 94 50 11/13/16 06:00 87 11/13/16 05:04 100 40 11/13/16 05:00 Bi-Pap 50 11/13/16 04:00 112 11/13/16 04:00 98.0 112 20 128/77 90 11/13/16 03:15 Venturi Mask 50 11/13/16 02:00 80 11/13/16 01:30 Nasal Cannula 6.00 11/13/16 00:11 20 11/13/16 00:00 80 11/13/16 00:00 98.9 78 18 108/55 93 11/12/16 22:00 71 11/12/16 22:00 Nasal Cannula 3.00 11/12/16 21:35 96 Nasal Cannula 3.00 11/12/16 21:26 98.5 73 20 102/56 91 11/12/16 21:23 65 20 111/65 98 Nasal Cannula 3 11/12/16 19:43 100 Nasal Cannula 5.00 11/12/16 19:27 69 18 120/65 98 Nasal Cannula 2 11/12/16 18:31 65 22 111/59 100 Nasal Cannula 2 11/12/16 18:10 64 18 93/54 98 Nasal Cannula 2 11/12/16 17:53 62 18 90/55 97 11/12/16 17:42 62 16 87/48 97 Nasal Cannula 2 11/12/16 16:51 60 20 71/42 98 11/12/16 16:30 67 22 74/39 91 Nasal Cannula 3 11/12/16 15:44 Nasal Cannula 2 96 11/12/16 15:34 61 20 76/41 91 Room Air 11/12/16 15:17 97.4 65 24 67/38 94 Room Air Labs: Laboratory Tests Test 11/13/16 11/13/16 03:55 05:54 White Blood Count 16.9 TH/MM3 (4.0-11.0) Red Blood Count 3.31 MIL/MM3 (4.00-5.30) Hemoglobin 8.8 GM/DL (11.6-15.3) Hematocrit 28.5 % (35.0-46.0) Mean Corpuscular Volume 86.3 FL (80.0-100.0) Mean Corpuscular Hemoglobin 26.6 PG (27.0-34.0) Mean Corpuscular Hemoglobin 30.8 % Concent (32.0-36.0) Red Cell Distribution Width 17.5 % (11.6-17.2) Platelet Count 325 TH/MM3 (150-450) Mean Platelet Volume 6.7 FL (7.0-11.0) Sodium Level 142 MEQ/L (136-145) Potassium Level 4.2 MEQ/L (3.5-5.1) Chloride Level 110 MEQ/L (98-107) Carbon Dioxide Level 22.2 MEQ/L (21.0-32.0) Anion Gap 10 MEQ/L (5-15) Blood Urea Nitrogen 22 MG/DL (7-18) Creatinine 1.55 MG/DL (0.50-1.00) Estimat Glomerular Filtration 34 ML/MIN (>89) Rate Random Glucose 146 MG/DL (74-106) Calcium Level 8.5 MG/DL (8.5-10.1) Troponin I 0.29 NG/ML (0.02-0.05) Blood Gas Puncture Site RT RADIAL Blood Gas Patient Temperature 98.6 Blood Gas HCO3 19 mmol/L (22-26) Blood Gas Base Excess -6.5 mmol/L (-2-2) Blood Gas Oxygen Saturation 88 % (90-100) Arterial Blood pH 7.31 (7.380-7.420) Arterial Blood Partial 38 mmHg (38-42) Pressure CO2 Arterial Blood Partial 69 mmHg Pressure O2 (61-120) Arterial Blood Oxygen Content 10.9 Vol % (12.0-20.0) Arterial Blood 2.0 % (0-4) Carboxyhemoglobin Arterial Blood Methemoglobin 1.2 % (0-2) Blood Gas Hemoglobin 8.7 G/DL (12.0-16.0) Oxygen Delivery Device BIPAP Blood Gas Ventilator Setting IPAP10/EPAP5 Blood Gas Inspired Oxygen 40 % Result Diagram: 11/13/16 0355 11/13/16 0355 Chantale Wakefield MD Nov 13, 2016 09:48
--- NOTE | 2016-11-13 11:00 | EKG ---
Date Performed: 11/12/2016 Time Performed: 16:01:54 PTAGE: 60 years EKG: SINUS BRADYCARDIA POSSIBLE INFERIOR MYOCARDIAL INFARCTION BORDERLINE ECG PREVIOUS TRACING : 11/12/2016 15.54 DOCTOR: Saran Yu Interpretating Date/Time 11/13/2016 10:58:52
--- NOTE | 2016-11-13 11:22 | PD.ID.CON ---
History of Present Illness Service ID Consult Requested By Dr Kahn Reason for Consult sepsis, osteomyelitis Primary Care Physician Alonso Robins MD Diagnoses: History of Present Illness Pt well known to me with poorly controleed DM, chronic R foot DFI, osteo involving cuboid bone and failed Chopart's amputation. She was evaluated 2 weeks ago for further tx and after oren seen by 2 vascular surgeons the decision was made to try conservative approach and avoid below knee amputation Pt was dischagerd on IV vancomycin ans po levaqine She previously had MRSA and PSAE grown on separate occasions from the foot wound She has multiple other med problems including CHF and COPD presented yday with weakness and wound dehiscense She was found to be hypotensive in ER and admitted with diagnosis of septic shock Review of Systems Except as stated in HPI: all other systems reviewed are Neg Past Family Social History Allergies: Coded Allergies: Bactrim (Verified Allergy, Severe, Shortness of Breath, 11/12/16) Iodine (Verified Allergy, Severe, THROAT SWELLS, 11/12/16) pt states does not have a allergy to Iodine 01/11/16 JF Penicillin (Verified Allergy, Severe, STOPPED BREATHING, 11/12/16) Shellfish (Verified Allergy, Severe, THROAT SWELLS, 11/12/16) *MDRO Multi-Drug Resistant Organism (Verified Adverse Reaction, Unknown, ) 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 (foot)-10/02/16 Past Medical History Lupus HTN COPD, oxygen as needed at home DM CAD CHF Afib colovesiluar fistula Past Surgical History CABG 2013 Right illiac artery bypass 2015 Right 2nd and 5th toe amputation colostomy Mastectomy 1979 Breast augmentation Hysterectomy Tonsillectomy Active Ordered Medications Active Ordered Medications Medications where reviewed in EMR Antibiotics Include: vancomycin; aztreonam Family History Dad: CAD, [place] Mom: breast cancer, bone cancer Grandfather: DM Social History Tobacco use: Quit < 1 yr ago Alcohol use: Denies Illicit drug use: Denies Physical Exam Vital Signs Vital Signs Date Time Temp Pulse Resp B/P Pulse Ox O2 Delivery O2 Flow Rate FiO2 11/13/16 09:06 92 Nasal Cannula 6.00 11/13/16 07:00 95 Bi-Pap 40 11/13/16 06:45 94 50 11/13/16 06:00 87 11/13/16 05:04 100 40 11/13/16 05:00 Bi-Pap 50 11/13/16 04:00 112 11/13/16 04:00 98.0 112 20 128/77 90 11/13/16 03:15 Venturi Mask 50 11/13/16 02:00 80 11/13/16 01:30 Nasal Cannula 6.00 11/13/16 00:11 20 11/13/16 00:00 80 11/13/16 00:00 98.9 78 18 108/55 93 11/12/16 22:00 71 11/12/16 22:00 Nasal Cannula 3.00 11/12/16 21:35 96 Nasal Cannula 3.00 11/12/16 21:26 98.5 73 20 102/56 91 11/12/16 21:23 65 20 111/65 98 Nasal Cannula 3 11/12/16 19:43 100 Nasal Cannula 5.00 11/12/16 19:27 69 18 120/65 98 Nasal Cannula 2 11/12/16 18:31 65 22 111/59 100 Nasal Cannula 2 11/12/16 18:10 64 18 93/54 98 Nasal Cannula 2 11/12/16 17:53 62 18 90/55 97 11/12/16 17:42 62 16 87/48 97 Nasal Cannula 2 11/12/16 16:51 60 20 71/42 98 11/12/16 16:30 67 22 74/39 91 Nasal Cannula 3 11/12/16 15:44 Nasal Cannula 2 96 11/12/16 15:34 61 20 76/41 91 Room Air 11/12/16 15:17 97.4 65 24 67/38 94 Room Air Physical Exam CONSTITUTIONAL/GENERAL: This is an obese chronically ill appearing female patient, in no apparent distress. TUBES/LINES/DRAINS: SKIN: No jaundice, rashes, or lesions. . Skin temperature appropriate. Not diaphoretic. Breast: sp b/l mastectomy with well healed scars HEAD: Atraumatic. Normocephalic. EYES: Pupils equal and round and reactive. Extraocular motions intact. No scleral icterus. No injection or drainage. Fundi not examined. ENT: Hearing grossly normal. Nose without bleeding or purulent drainage. Throat without visible erythema, exudates, masses, or lesions. Edentulous NECK: Trachea midline. Supple, nontender. . CARDIOVASCULAR: Regular rate and rhythm without murmurs, gallops, or rubs. No JVD. Peripheral pulses symmetric. RESPIRATORY/CHEST: Symmetric, unlabored respirations. Clear to auscultation. Breath sounds equally diminished bilaterally. No wheezes, rales, or rhonchi. GASTROINTESTINAL: Abdomen soft globular, non-tender, mildly distended. No hepato -splenomegaly, or palpable masses. No guarding. Bowel sounds present. Stoma in place LLQ with a small amount of stool GENITOURINARY: Without palpable bladder distension. Avendano catheter in place with clear yellow urine MUSCULOSKELETAL: Extremities without clubbing, cyanosis, RLE is mildly edematous, all the was to the knee Well healed incision from periferal bypass Sp Shopar R foot, remainder of the foot is erythematous Incision is dehisced with small amount of serous odorless dc Black eschar 3-4 cm on the bottom of the foot Moderate edema, erythema present L foot with non palpable pedal pulse, LYMPHATICS: No palpable cervical or supraclavicular adenopathy. NEUROLOGICAL: Awake and alert. Motor and sensory grossly within normal limits. Follows commands. Normal speech Moves all extremities. PSYCHIATRIC: No obvious anxiety/depression. no apparent hallucinations or other psychotic thought process. Laboratory Laboratory Tests Test 11/12/16 11/12/16 11/12/16 11/12/16 16:10 16:30 17:11 21:15 White Blood Count 9.3 Red Blood Count 2.87 Hemoglobin 7.9 Hematocrit 24.2 Mean Corpuscular Volume 84.3 Mean Corpuscular Hemoglobin 27.5 Mean Corpuscular Hemoglobin 32.6 Concent Red Cell Distribution Width 17.5 Platelet Count 253 Mean Platelet Volume 6.9 Neutrophils (%) (Auto) 70.3 Lymphocytes (%) (Auto) 12.6 Monocytes (%) (Auto) 15.8 Eosinophils (%) (Auto) 0.6 Basophils (%) (Auto) 0.7 Neutrophils # (Auto) 6.5 Lymphocytes # (Auto) 1.2 Monocytes # (Auto) 1.5 Eosinophils # (Auto) 0.1 Basophils # (Auto) 0.1 CBC Comment DIFF FINAL Differential Comment Sodium Level 139 Potassium Level 4.2 Chloride Level 106 Carbon Dioxide Level 26.6 Anion Gap 6 Blood Urea Nitrogen 27 Creatinine 1.99 Estimat Glomerular Filtration 26 Rate Random Glucose 153 Calcium Level 8.9 Troponin I 0.59 Lactic Acid Level 1.3 Urine Color YELLOW Urine Turbidity HAZY Urine pH 5.0 Urine Specific [place] 1.014 Urine Protein TRACE Urine Glucose (UA) NEG Urine Ketones NEG Urine Occult Blood NEG Urine Nitrite NEG Urine Bilirubin NEG Urine Urobilinogen LESS THAN 2.0 Urine Leukocyte Esterase NEG Urine RBC 3 Urine WBC 1 Urine Squamous Epithelial 2 Cells Urine Amorphous Sediment RARE Urine Hyaline Casts 7 Microscopic Urinalysis Comment CATH-CULT NOT IND Nasal Screen MRSA (PCR) NEGATIVE Test 11/13/16 11/13/16 03:55 05:54 White Blood Count 16.9 Red Blood Count 3.31 Hemoglobin 8.8 Hematocrit 28.5 Mean Corpuscular Volume 86.3 Mean Corpuscular Hemoglobin 26.6 Mean Corpuscular Hemoglobin 30.8 Concent Red Cell Distribution Width 17.5 Platelet Count 325 Mean Platelet Volume 6.7 Sodium Level 142 Potassium Level 4.2 Chloride Level 110 Carbon Dioxide Level 22.2 Anion Gap 10 Blood Urea Nitrogen 22 Creatinine 1.55 Estimat Glomerular Filtration 34 Rate Random Glucose 146 Calcium Level 8.5 Troponin I 0.29 Blood Gas Puncture Site RT RADIAL Blood Gas Patient Temperature 98.6 Blood Gas HCO3 19 Blood Gas Base Excess -6.5 Blood Gas Oxygen Saturation 88 Arterial Blood pH 7.31 Arterial Blood Partial 38 Pressure CO2 Arterial Blood Partial 69 Pressure O2 Arterial Blood Oxygen Content 10.9 Arterial Blood 2.0 Carboxyhemoglobin Arterial Blood Methemoglobin 1.2 Blood Gas Hemoglobin 8.7 Oxygen Delivery Device BIPAP Blood Gas Ventilator Setting IPAP10/EPAP5 Blood Gas Inspired Oxygen 40 Date/Time Procedure Status Source Growth 11/12/16 16:20 Gram Stain - Final Resulted Wound Foot 11/12/16 16:20 Wound Culture Resulted Wound Foot Pending 11/12/16 16:20 Aerobic Blood Culture - Preliminary Resulted Blood Peripheral NO GROWTH IN 1 DAY 11/12/16 16:20 Anaerobic Blood Culture - Preliminary Resulted Blood Peripheral NO GROWTH IN 1 DAY 11/12/16 16:20 Aerobic Blood Culture Received Blood Peripheral Pending 11/12/16 16:20 Anaerobic Blood Culture Received Blood Peripheral Pending Result Diagram: 11/13/16 0355 11/13/16 0355 Imaging Last Impressions Chest X-Ray 11/13/16 0000 Signed Impressions: Service Date/Time: Sunday, November 13, 2016 05:37 - CONCLUSION: Persistent bibasilar consolidation. Cardiomegaly and interstitial prominence. Jean Costa MD Foot X-Ray 11/12/16 0000 Signed Impressions: Service Date/Time: Saturday, November 12, 2016 15:39 - CONCLUSION: Extensive soft tissue defect/ulceration with soft tissue emphysema and findings concerning for osteomyelitis. Felix Murcia MD Assessment and Plan Assessment and Plan MRSA DFI, osteo R foot sp Shopar in the settings of PVD - failed amputation - cont to have sign issues with helaing Severe unreconstructable PVD Hypotension, suspected septic shock Multiple med prob including COPD, CHF HIgh grade PCN allergy (anaphylaxis) - cont vancomycin - cont azactam, - add flagyl - FU P clx untill final pt wants to discuss her options with Dr Wheeler Discussed Condition With RN Dr Femi Conner,Fiona Tirado MD Nov 13, 2016 11:22
[2016-11-13 13:50] LABS: INDIRECT BILIRUBIN 0.3 MG/DL (0.0-0.8); TOTAL BILIRUBIN ADULT 0.4 MG/DL (0.2-1.0)
[2016-11-13] MEDS: VANCOMYCIN INJ 1,500 MG in SODIUM CHLORID 0.9% 500 ML INJ 500 ML IV SCH (16:46)
[2016-11-13] MEDS: MORPHINE SULFATE 4 MG/ML INJ IV PUSH PRN ×4 (17:08→23:18)
--- NOTE | 2016-11-13 20:12 | MB ---
cc: PUMA FERRER DPM, JAMES JAZAREVIC, SLOBODAN DATE OF CONSULTATION: 11/13/2016 REASON FOR CONSULTATION: Reevaluation right lower extremity vascular status / transmetatarsal amputation. HISTORY This 60-year-old hypertensive type 2 diabetic female with chronic atrial fibrillation, compensated congestive heart failure and lupus in the fall of 2015 developed ischemic necrosis within the right great toe. She underwent digital amputation which failed to heal. In May of last year, Janette Sánchez MD., performed right femoral popliteal bypass. She subsequently underwent right transmetatarsal amputation in September of this year. The amputation incision developed necrosis along the plantar flap with exposure of underlying tarsal bone. She was hospitalized here last week with cellulitis and low grade sepsis. Cultures grew MRSA and she was begun on appropriate broad-spectrum antibiotic coverage and wound care. She was readmitted with dyspnea and low grade sepsis. I spoke earlier today with Dr. Conner, Infectious Disease specialist, who is concerned that her cardiopulmonary deterioration is related to ongoing sepsis, probably due to her persistent right foot infection. During her October hospitalization, CT angiogram confirmed patency of her right femoral popliteal bypass with what appeared to be high-grade stenosis within the proximal aspect of the saphenous vein bypass graft. PAST MEDICAL HISTORY: 1. Lupus. 2. Hypertension 3. COPD. 4. Type 2 diabetes mellitus. 5. Coronary artery disease with compensated congestive heart failure and chronic atrial fibrillation. PAST SURGICAL HISTORY: 1. Coronary artery bypass in 2013. 2. Right femoral popliteal bypass, May 2016, Janette Sánchez MD. 3. Mastectomy 1979. 4. Hysterectomy. 5. Tonsillectomy. MEDICATIONS: Detailed in the medication reconciliation sheet. PHYSICAL EXAMINATION: VITAL SIGNS: Temperature 99, pulse 82, respiratory rate 20, blood pressure 130/70. GENERAL: A well-developed, well-nourished 60 year-old female, who appears ten years older than stated age. Normal affect and cognitive function. LUNGS: Symmetrically expanded and clear. CARDIAC: Rhythm is irregular. Well-healed sternotomy noted. No rubs or gallops. NECK: No neck vein distension. Right posterolateral thoracotomy scar is noted. ABDOMEN: Obese, soft. No palpable aneurysm. EXTREMITIES: Good joint range of motion. A right transmetatarsal amputation wound exhibits dehiscence with clean granulation along the full length of the TMA incision. A circular shape, black, necrotic eschar 30 x 6 millimeters in dimension is centered over the distal right first metatarsal. No edema and erythema surrounds the blackened eschar. No drainage. No fluctuance or crepitance to suggest uncontrolled soft tissue infection. Scars are present, right groin thigh and below knee, consistent with femoral popliteal bypass. Saphenous vein harvest scar is present bilaterally. NEUROLOGIC: Stocking glove hypesthesia, typical of diabetic peripheral neuropathy, moderately advanced. No gross lateralizing deficits. I discussed clinical findings with Dr. Conner and Dr. Wakefield. Given concerns about ongoing low grade sepsis with associated cardiopulmonary decompensation, I agree with their recommendations for below-knee amputation. Thank you for allowing me to participate in this lady's care. MD JASE Kinney/FARIDA /4:00 PM /7:46 PM
--- NOTE | 2016-11-13 20:34 | MB ---
cc: CHANTALE EVANS DATE OF CONSULTATION: 11/12/2016 REASON FOR CONSULTATION: Gangrene of the right foot. HISTORY OF PRESENT DISEASE: The patient is a 60 year-old female with multiple medical problems, known to me from previous encounters. She had prior transmetatarsal amputation in October 2016 for osteomyelitis and peripheral vascular disease. She also had fem to distal bypass graft on the right leg in another institution. This graft remains open. However, the patient has a gangrene of the foot. The patient was seen last month in the hospital and between me and Dr. Wheeler, as well as podiatry, we all agree that the patient should be given possibly some chance to make this heal and maybe have a higher amputation. The patient was then discharged. The patient now comes back hypotensive with sepsis. She was started on Levophed placed in the ICU. She has dehiscence and gangrene of the remaining part of the foot up to the Chopart's amputation. Considering the foot gangrene and no further ability to resect this other than below-knee amputation, consult is placed to vascular surgery. PAST MEDICAL HISTORY: Complex, and includes: 1. Systemic lupus. 2. Anxiety and depression. 3. Diabetes mellitus 4. Hypertension. PAST SURGICAL HISTORY: 1. Bilateral mastectomy due to family history of breast cancer. 2. CABG. 3. Hysterectomy. 4. Tonsillectomy 5. Cholecystectomy 6. Colostomy with reversal for diverticulitis 7. Right foot amputation in the past. 8. Fem distal bypass. MEDICATIONS: Can be found on the record. SOCIAL HISTORY: The patient is a very poor historian, she does not smoke or drink. I do not know when she stopped. PHYSICAL EXAMINATION: The patient is a 60 year-old female appearing much older than stated age. HEENT: Normocephalic. No trauma to the head. Pupils are equal and reactive. The patient is somewhat somnolent. Extraocular muscles appear to be intact. The patient is sitting in bed but she is slightly confused. NECK: Supple. Bilateral carotid pulses. CHEST: Bilateral breath sounds, barrel chested, consistent with severe end stage COPD. HEART: Regular rhythm with occasional premature contraction. ABDOMEN: Soft, obese. No guarding, no rebound, no masses. Scars from previous surgery. EXTREMITIES: The patient has big bilateral femoral pulses and on the left the patient has popliteal pulse, and a weak posterior pulse on doppler. On the right the patient has a very weak popliteal pulse by doppler. There is no posterior tibial, dorsalis pedis. There is a scar on the leg and there is some signal there, possible some fem distal bypass that was done somewhere else. The patient has tarsal metatarsal amputation which is gangrenous. The incision has fallen open and it is foul-smelling. The patient has rubor and swelling of the right leg towards the knee. RECOMMENDATIONS: At this point there is no way to manage this patient without below-knee amputation. The patient wants to talk to her significant other about it to make a decision but I would suggest to proceed within the next 48 hours. I will put the patient tentatively on for Friday morning for surgery. The patient should have a right below-knee amputation. Thank you for the referral. Critical care time: 40 minutes. Chantale MAYBERRY /5:09 PM /8:13 PM
--- NOTE | 2016-11-13 21:00 | EC ---
Study Study Date:11/13/2016 STUDY CONCLUSIONS SUMMARY - Procedure narrative: Image quality was poor. The study was technically limited due to poor acoustic window availability. - Left ventricle: The cavity size was mildly dilated. Wall thickness was increased in a pattern of mild LVH. There was concentric hypertrophy. Inlimited views, systolic function appearsseverely reduced. The estimated ejection fraction was in the range of 25% to 30%. - Left atrium: The atrium was mildly to moderately dilated. - Right ventricle: The cavity size was mildly dilated. If LV function is below 40, please consider prescribing an ACEI or ARB or document rationale for non-use. PROCEDURE DATA STUDY STATUS: Elective. Procedure: Transthoracic echocardiography. Image quality was poor. The study was technically limited due to poor acoustic window availability. Scanning was performed from the parasternal, apical, and subcostal acoustic windows. Study completion: The patient tolerated the procedure well. Transthoracic echocardiography. M-mode, complete 2D, complete spectral Doppler, and color Doppler. Height: Height: 62in. Weight: Weight: 183.6lb. Body mass index: BMI: 33.7kg/m^2. Body surface area: BSA: 1.84m^2. Patient status: Inpatient. CARDIAC ANATOMY LEFT VENTRICLE: The cavity size was mildly dilated. Wall thickness was increased in a pattern of mild LVH. There was concentric hypertrophy. Inlimited views, systolic function appearsseverely reduced. The estimated ejection fraction was in the range of 25% to 30%. Images were inadequate for LV wall motion assessment. AORTIC VALVE: Probably trileaflet. Doppler: There was no stenosis. No significant regurgitation. MITRAL VALVE: Not well visualized. LEFT ATRIUM: The atrium was mildly to moderately dilated. RIGHT VENTRICLE: The cavity size was mildly dilated. PULMONIC VALVE: Not well visualized. TRICUSPID VALVE: The valve appears to be grossly normal. Doppler: There was no evidence for stenosis. Trace regurgitation. PERICARDIUM: There was no pericardial effusion. Patient weight: 183.6lb _Ejection fraction:_ 65-75% _Fractional shortening:_ 32% up to 5Kg 5-11.5Kg 11.6-22.9Kg 23-45Kg 45-57Kg Aortic Root 7-13 <17 13-22 17-27 17-27 LA diam 6-13 <23 24-38 33-47 37-40 RVID 10-17 7-15 7-15 7-18 8-17 LVIDd 12-22 <32 24-38 33-47 37-40 LVPW 2-4 3-6 5-7 6-8 7-8 IVS 2-4 3-6 5-7 6-8 7-8 BASIC MEASUREMENTS ADULT Normal Left ventricle LV internal dimension, ED, chordal level, *52.3 mm 43-52 PLAX LV internal dimension, ES, chordal level, *46 mm 23-38 PLAX Fractional shortening, chordal level, PLAX *12 % >29 LV posterior wall thickness, ED 12.7 mm IVS/LVPW ratio, ED 0.98 <1.3 Ventricular septum Septal thickness, ED 12.5 mm Aortic valve Leaflet separation 17 mm 15-26 Left atrium Anterior-posterior dimension 47 mm Anterior-posterior dimension index *2.55 cm/m^2 <2.2 Right ventricle RV internal dimension, ED, PLAX 33.7 mm 19-38 BASIC MEASUREMENTS ADULT Normal Left ventricle LV internal dimension, ED 52.4 mm 37-56 LV internal dimension, ES 46.7 mm Fractional shortening *11 % 29-45 LV posterior wall, ED *13.8 mm 6-11 Septal/posterior wall ratio, ED 1 Relative wall thickness, ED *0.53 <0.45 Volume, ED, Teichholz 132 ml Volume, ES, Teichholz 101 ml Ejection fraction, Teichholz *23.5 % 64-83 Stroke volume, Teichholz 31 ml Volume index, ED, Teichholz 72 ml/m^2 Volume index, ES, Teichholz 55 ml/m^2 Stroke index, Teichholz 16.8 ml/m^2 Wall mass 306.9 g Wall mass index 166.8 g/m^2 Mass/height 1.95 g/cm Ventricular septum Septal thickness, ED 13.8 mm Aortic valve Leaflet separation 17 mm 15-26 Aorta Root diameter, ED 33 mm 20-37 DOPPLER MEASUREMENTS ADULT Normal Tricuspid valve Regurgitant peak velocity 224 cm/s Peak RV-RA gradient, S 20 mm Hg Pulmonic valve Peak velocity, S 76 cm/s LEGEND: Mean values are shown as u=mean value. Asterisk (*) roche values outside specified normal range. Prepared and signed by Luciano Russo [id number]
[2016-11-13] MEDS: ATORVASTATIN 40 MG TAB PO SCH (21:01)
[2016-11-13] MEDS: PANTOPRAZOLE SODIUM 40 MG VIAL IV PUSH SCH (21:01)
[2016-11-14] VITALS (14 sets, daily range): BP systolic 115–162; BP diastolic 60–105; PULSE 66–109; RESP 15–22; TEMP 97.7–98.8; O2SAT 92–99
[2016-11-14] MEDS: MORPHINE SULFATE 4 MG/ML INJ IV PUSH PRN ×8 (02:52→21:05)
[2016-11-14] MEDS: CHLORHEXIDINE GLUCONATE 2 % 1 PACK (2 CLOTHS)(taper/protocol) TOPICAL SCH (03:13)
[2016-11-14] MEDS: metroNIDAZOLE 500 MG INJ 100 ML IV SCH ×5 (03:13→23:02)
[2016-11-14] MEDS: RESP: ALBUTEROL 2.5 MG/IPRATROPIUM 0.5 MG NEB (SCH) NEB ×6 (03:52→23:32)
[2016-11-14] MEDS: LACTATED RINGER'S 1000 ML INJ 1,000 ML IV SCH ×2 (05:11→12:30)
[2016-11-14] MEDS: methylPREDNISolone SOD SUCC 125 MG/2 ML VIAL IV PUSH SCH ×4 (05:12→23:02)
[2016-11-14] MEDS: HEPARIN SODIUM - SQ 10,000 UNITS/ML VIAL SQ SCH ×3 (05:12→21:05)
[2016-11-14] MEDS: INSULIN NovoLIN REGULAR SUPPLEMENTAL SCALE SQ SCH ×4 (05:13→23:01)
[2016-11-14 05:47] LABS: HEMATOCRIT 24.1 % (35.0-46.0); MEAN CELL VOLUME 84.7 FL (80.0-100.0); MEAN CORPUSCULAR HEMOGLOBIN 27.5 PG (27.0-34.0); MEAN CORPUSCULAR HGB CONC 32.5 % (32.0-36.0); PLATELET COUNT 249 TH/MM3 (150-450); RED BLOOD COUNT 2.85 MIL/MM3 (4.00-5.30); RED CELL DISTRIBUTION WIDTH 18.1 % (11.6-17.2); REVIEW FLAG FINAL; WHITE BLOOD COUNT 15.2 TH/MM3 (4.0-11.0)
[2016-11-14 06:08] LABS: BICARBONATE 23.9 MEQ/L (21.0-32.0); POTASSIUM 3.8 MEQ/L (3.5-5.1)
[2016-11-14] MEDS: ALBUTEROL SULFATE 90 MCG/ACT HFA 18 GM INHALER INH PRN (06:40)
--- NOTE | 2016-11-14 06:52 | MB ---
cc: LUCIANO WATTS DO DATE OF ADMISSION November 13, 2016 REASON FOR CONSULTATION Elevation of troponins, risk assessment for [id number] amputations. HISTORY OF PRESENT ILLNESS Zahra Finnegan is a pleasant 60-year-old female who presents to [facility] emergency room on November 12, 2016, due to osteomyelitis. She was previously on outpatient therapy with vancomycin and Levaquin due to concern for the infection. She previously had a transmetatarsal amputation in October 2016. She came to the emergency room due to increasing right foot pain over the past few days. She was noted to be hypotensive in the emergency room with minimal response to IV fluids. Because of this, she was started on Levophed. X-ray in the emergency room demonstrated gas in the soft tissue concerning for recurrent worsening osteomyelitis. In seeing her in the ICU, she is currently hemodynamically stable on pressor therapy. PAST MEDICAL HISTORY 1. Peripheral artery disease. 2. Asthma. 3. Lupus. 4. Anxiety. 5. Coronary artery disease. 6. Depression. 7. Diabetes with peripheral neuropathy. PAST SURGICAL HISTORY 1. Coronary artery bypass grafting x 5 (2013). 2. Cholecystectomy. 3. Colostomy with colostomy reversal. 4. Previous PCI x 2 (believed to be in 2002). 5. Bilateral mastectomy prophylactically due to family history of breast cancer. 6. Bilateral breast augmentation. 7. Hysterectomy. 8. Tonsillectomy. 9. Right transmetatarsal amputation (October 2016). ALLERGIES 1. BACTRIM. 2. IODINE. 3. PENICILLIN. 4. SHELLFISH. MEDICATIONS 1. Losartan 25 mg daily. 2. Amiodarone 200 mg daily. 3. Gabapentin 300 mg every 6 hours. 4. Duloxetine 60 mg b.i.d. 5. Metoprolol tartrate 12.5 mg b.i.d. 6. Alendronate 70 mg weekly. 7. Tizanidine 4 mg t.i.d. 8. Lipitor 40 mg every night. 9. Novolin 70/30, 30 units b.i.d. 10. Montelukast 10 mg every night. 11. Imdur 30 mg daily. 12. Aspirin 81 mg daily. 13. Percocet as needed. 14. Levaquin 750 mg daily. FAMILY HISTORY Denies premature coronary artery disease or sudden cardiac within the family. SOCIAL HISTORY Previous tobacco abuse, quitting within the past year. Denies alcohol or drug abuse. REVIEW OF SYSTEMS Fourteen-systems were reviewed including osteopathic pertinent positives and negatives above, otherwise negative. PHYSICAL EXAMINATION VITAL SIGNS: Temperature 99.0, heart rate 105, blood pressure 131/82, respirations 24, pulse ox 94% on 6 liters. IN GENERAL: The patient appears chronically ill but in no acute distress, alert, awake and oriented x 3. Extraocular muscles intact. Mucous membranes moist. NECK: Supple. No JVD at 45 degrees. No carotid bruits heard bilaterally. Carotid upstroke is brisk in nature. HEART: Regular rate and rhythm, mildly tachycardiac. No noted murmurs. LUNGS: Decreased breath sounds bilaterally but no overt wheezes, rales or rhonchi. ABDOMEN: Soft, nontender, nondistended. No organomegaly noted. EXTREMITIES: No clubbing, cyanosis or edema. Right foot wrapped in René bandage with purulence from amputation site, erythema noted up to the ankle. NEUROLOGIC: No focal deficits. SKIN: Warm, dry and intact other than right lower extremity which is erythematous. OSTEOPATHIC EXAM: No kyphoscoliosis, lordosis or paraspinal tender points. LABORATORY FINDINGS White blood cells 16.9, hemoglobin 8.8, hematocrit 28.5, platelets 325. Potassium 4.2, BUN 22, creatinine 1.55, lactic acid 1.3. Troponin 0.59 decreasing to 0.2. ELECTROCARDIOGRAM (November 12, 2016, at 16:01) Sinus bradycardia, intraventricular conduction delay, possible age indeterminate inferior CO. IMPRESSIONS 1. Septic shock. 2. Elevation of troponin most likely type 2 in nature due to demand ischemia from acute illness. 3. Diabetic neuropathy. 4. Right foot osteomyelitis. 5. Diabetes mellitus. 6. Acute kidney injury. RECOMMENDATIONS 1. Ms. Finnegan's troponin elevation is most likely due to her acute illness as it has dropped off without a typical elevation and depression. 2. As far as her peripheral artery disease and risk assessment for lower extremity amputation, she is high risk for the procedure. My concern is that I cannot decrease this risk as this needs to be done urgently as it is leading her towards her septic shock. She may proceed is a high-risk candidate. Typically we would continue her on her beta-tomas therapy into the surgery but we are unable to due to her septic shock. 3. We will plan to support her as we can perioperatively and postoperatively but once again I am unable to decrease her risk at this time. 4. Further recommendations will be made based on the hospital course. Thank you for allowing me to see Zahra Finnegan. If there are any questions, please do not hesitate to call. Luciano Watts DO VGP/SSB /11:51 PM /6:37 AM
[2016-11-14] MEDS: ASPIRIN 81 MG CHEW TAB CHEW SCH (08:52)
[2016-11-14] MEDS: AMIODARONE 200 MG TAB PO SCH (08:52)
[2016-11-14] MEDS: oxyCODONE/ACETAMINOPHEN 10 MG/325 MG TAB PO PRN (08:53)
[2016-11-14] MEDS: AZTREONAM INJ 1,000 MG in SODIUM CHLORIDE 0.9% INJ 100 ML IV SCH ×3 (08:54→23:02)
--- NOTE | 2016-11-14 13:13 | HHI.IDPN ---
Subjective Subjective Remarks ID COVERAGE 60 year old female admitted in septic shock Has been on Abx at home for foot infection C/O SOB BP better, off pressors Being eval by vascular, has redness and wound dehiscence on her TMA stump Wound C/S with possible VRE Antibiotics Azactam Flagyl Vancomycin Lines PICC Past Medical History Reviewed Allergies: Coded Allergies: Bactrim (Verified Allergy, Severe, Shortness of Breath, 11/12/16) Iodine (Verified Allergy, Severe, THROAT SWELLS, 11/12/16) pt states does not have a allergy to Iodine 01/11/16 JF Penicillin (Verified Allergy, Severe, STOPPED BREATHING, 11/12/16) Shellfish (Verified Allergy, Severe, THROAT SWELLS, 11/12/16) *MDRO Multi-Drug Resistant Organism (Verified Adverse Reaction, Unknown, ) 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 Vital Signs Date Time Temp Pulse Resp B/P Pulse Ox O2 Delivery O2 Flow Rate FiO2 11/14/16 10:00 102 11/14/16 08:21 98 Simple Mask 8.00 11/14/16 08:00 98.6 98 18 115/97 97 11/14/16 08:00 77 11/14/16 07:00 97 Simple Mask 8.00 11/14/16 06:00 100 11/14/16 05:24 20 11/14/16 04:00 66 11/14/16 04:00 98.8 98 18 146/75 98 11/14/16 02:00 101 11/14/16 00:00 101 11/14/16 00:00 98.6 101 20 162/72 97 11/13/16 22:00 96 11/13/16 20:00 100 11/13/16 20:00 98.6 100 20 136/64 97 11/13/16 19:39 93 Simple Mask 8.00 11/13/16 19:00 97 Venturi Mask 50 11/13/16 16:00 99.0 105 24 131/82 94 11/13/16 11/13/16 11/14/16 15:00 23:00 07:00 Intake Total 1660 ml 1202 ml 1038 ml Output Total 650 ml 500 ml 400 ml Balance 1010 ml 702 ml 638 ml Intake Oral 600 ml IV Total 1060 ml 1202 ml 1038 ml Output Urine Total 650 ml 500 ml 400 ml . Laboratory Tests Test 11/12/16 11/13/16 11/14/16 16:10 03:55 05:08 White Blood Count 9.3 TH/MM3 16.9 TH/MM3 15.2 TH/MM3 Red Blood Count 2.87 MIL/MM3 3.31 MIL/MM3 2.85 MIL/MM3 Hemoglobin 7.9 GM/DL 8.8 GM/DL 7.8 GM/DL Hematocrit 24.2 % 28.5 % 24.1 % Mean Corpuscular Volume 84.3 FL 86.3 FL 84.7 FL Mean Corpuscular Hemoglobin 27.5 PG 26.6 PG 27.5 PG Mean Corpuscular Hemoglobin 32.6 % 30.8 % 32.5 % Concent Red Cell Distribution Width 17.5 % 17.5 % 18.1 % Platelet Count 253 TH/MM3 325 TH/MM3 249 TH/MM3 Mean Platelet Volume 6.9 FL 6.7 FL 6.9 FL Neutrophils (%) (Auto) 70.3 % Lymphocytes (%) (Auto) 12.6 % Monocytes (%) (Auto) 15.8 % Eosinophils (%) (Auto) 0.6 % Basophils (%) (Auto) 0.7 % Neutrophils # (Auto) 6.5 TH/MM3 Lymphocytes # (Auto) 1.2 TH/MM3 Monocytes # (Auto) 1.5 TH/MM3 Eosinophils # (Auto) 0.1 TH/MM3 Basophils # (Auto) 0.1 TH/MM3 CBC Comment DIFF FINAL Differential Comment Laboratory Tests Test 11/12/16 11/12/16 11/13/16 11/13/16 16:10 16:30 03:55 13:02 Sodium Level 139 MEQ/L 142 MEQ/L Potassium Level 4.2 MEQ/L 4.2 MEQ/L Chloride Level 106 MEQ/L 110 MEQ/L Carbon Dioxide Level 26.6 MEQ/L 22.2 MEQ/L Anion Gap 6 MEQ/L 10 MEQ/L Blood Urea Nitrogen 27 MG/DL 22 MG/DL Creatinine 1.99 MG/DL 1.55 MG/DL Estimat Glomerular Filtration 26 ML/MIN 34 ML/MIN Rate Random Glucose 153 MG/DL 146 MG/DL Calcium Level 8.9 MG/DL 8.5 MG/DL Troponin I 0.59 NG/ML 0.29 NG/ML 0.22 NG/ML Lactic Acid Level 1.3 mmol/L Total Bilirubin 0.4 MG/DL Direct Bilirubin 0.1 MG/DL Indirect Bilirubin 0.3 MG/DL Aspartate Amino Transf 24 U/L (AST/SGOT) Alanine Aminotransferase 12 U/L (ALT/SGPT) Alkaline Phosphatase 58 U/L Total Protein 7.4 GM/DL Albumin 2.2 GM/DL Test 11/13/16 11/14/16 18:38 05:08 Troponin I 0.20 NG/ML Sodium Level 140 MEQ/L Potassium Level 3.8 MEQ/L Chloride Level 108 MEQ/L Carbon Dioxide Level 23.9 MEQ/L Anion Gap 8 MEQ/L Blood Urea Nitrogen 23 MG/DL Creatinine 1.21 MG/DL Estimat Glomerular Filtration 46 ML/MIN Rate Random Glucose 297 MG/DL Calcium Level 7.9 MG/DL Microbiology Date/Time Procedure Status Source Growth 11/12/16 16:20 Aerobic Blood Culture - Preliminary Resulted Blood Peripheral NO GROWTH IN 2 DAYS 11/12/16 16:20 Anaerobic Blood Culture - Preliminary Resulted Blood Peripheral NO GROWTH IN 2 DAYS 11/12/16 16:20 Aerobic Blood Culture - Preliminary Resulted Blood Peripheral NO GROWTH IN 2 DAYS 11/12/16 16:20 Anaerobic Blood Culture - Preliminary Resulted Blood Peripheral NO GROWTH IN 2 DAYS 11/12/16 16:20 Gram Stain - Final Resulted Wound Foot 11/12/16 16:20 Wound Culture - Preliminary Resulted Group D Enterococcus Imaging Last Impressions Chest X-Ray 11/13/16 0000 Signed Impressions: Service Date/Time: Sunday, November 13, 2016 05:37 - CONCLUSION: Persistent bibasilar consolidation. Cardiomegaly and interstitial prominence. Jean Costa MD Foot X-Ray 11/12/16 0000 Signed Impressions: Service Date/Time: Saturday, November 12, 2016 15:39 - CONCLUSION: Extensive soft tissue defect/ulceration with soft tissue emphysema and findings concerning for osteomyelitis. Felix Murcia MD Physical Exam GENERAL: Awake and alert, looks comfortable at rest SKIN: No jaundice, rashes, or lesions. . Skin temperature appropriate. Not diaphoretic. Breast: sp b/l mastectomy with well healed scars HEENT: No scleral icterus. No injection or drainage. Nose without bleeding or purulent drainage. Throat without visible erythema, exudates, masses, or lesions. Edentulous NECK: Trachea midline. Supple, nontender. . CARDIOVASCULAR: Regular rate and rhythm without murmurs, gallops, or rubs. RESPIRATORY/CHEST: Symmetric, unlabored respirations. Clear to auscultation. Breath sounds equally diminished bilaterally. No wheezes, rales, or rhonchi. GASTROINTESTINAL: Abdomen soft globular, non-tender, mildly distended. No hepato -splenomegaly, or palpable masses. No guarding. Bowel sounds present. Stoma in place LLQ with a small amount of stool GENITOURINARY: Avendano catheter in place with clear yellow urine MUSCULOSKELETAL: Extremities without clubbing, cyanosis, RLE is mildly edematous. S/P Chopart R foot, remainder of the foot is erythematous Incision has dehiscence, with small amount of serous odorless discharge. Black eschar 3-4 cm on the bottom of the foot NEUROLOGICAL: Awake and alert. Follows commands. Normal speech Moves all extremities. PSYCHIATRIC: Calm and cooperative LIMES: PICC and PIV with no evidence of infection Assessment & Plan Remarks IMPRESSION MRSA DFI, osteo R foot sp [place] in the settings of PVD - failed amputation - cont to have sign issues with helaing Severe unreconstructable PVD Hypotension, suspected septic shock Multiple med prob including COPD, CHF HIgh grade PCN allergy (anaphylaxis) PLAN Change vancomycin to Cubicin for possible VRE Continue azactam Continue flagyl Follow C/S Monitor progress D/W Aleta Velazquez MD Nov 14, 2016 13:13
--- NOTE | 2016-11-14 13:39 | PD.CARD.PN ---
Subjective Subjective Remarks No chest pain, continues with shortness of breath Objective Medications Current Medications Medications (Trade) Dose Ordered Sig/Seng Route Start Time Stop Time Status Last Admin (Levophed-Dextrose Drip) 250 ml @ 0 mls/hr TITRATE IV 11/12/16 17:30 11/12/16 17:41 (D50w (Vial) Inj) 25 ml UNSCH PRN IV PUSH 11/12/16 17:30 (NovoLIN R SUPPLEMENTAL SCALE) 1 Q6HR SQ 11/12/16 18:00 11/14/16 13:28 Magnesium Oxide 800 mg 800 mg UNSCH PRN PO 11/12/16 17:30 Magnesium Sulfate 4 gm/Sodium Chloride 100 ml @ 50 mls/hr UNSCH PRN IV 11/12/16 17:30 Magnesium Sulfate 2 gm/Sodium Chloride 100 ml @ 50 mls/hr UNSCH PRN IV 11/12/16 17:30 Potassium Chloride 100 ml @ 50 mls/hr Q2H PRN IV 11/12/16 17:30 Potassium Chloride 100 ml @ 50 mls/hr Q2H PRN IV 11/12/16 17:30 Potassium Chloride 100 ml @ 50 mls/hr Q2H PRN IV 11/12/16 17:30 (KCl 40 Meq Premix Inj) 100 ml @ 25 mls/hr UNSCH PRN IV 11/12/16 17:30 (K-Phos) 2,000 mg Q4H PRN PO 11/12/16 17:30 Potassium Phosphate 2000 mg 2,000 mg UNSCH PRN PO/TUBE 11/12/16 17:30 Potassium Phosphate 30 mmol/ Sodium Chloride 260 ml @ 42 mls/hr UNSCH PRN IV 11/12/16 17:30 Sodium Phosphate 30 mmol/Sodium Chloride 250 ml @ 42 mls/hr UNSCH PRN IV 11/12/16 17:30 Pharmacy Profile Note 0 ml @ 0 mls/hr UNSCH OTHER 11/12/16 17:30 Aztreonam 1000 mg/ Sodium Chloride 100 ml @ 200 mls/hr Q8H IV 11/13/16 01:00 11/14/16 08:54 (Lr 1000 ml Inj) 1,000 ml @ 150 mls/hr Q6H40M IV 11/12/16 20:30 11/13/16 21:02 (Heparin Inj) 5,000 units Q8HR SQ 11/12/16 22:00 11/14/16 13:23 (Protonix Inj) 40 mg Q24H IV PUSH 11/12/16 22:00 11/13/16 21:01 (Cordarone) 200 mg DAILY PO 11/13/16 09:00 11/14/16 08:52 (Percocet 10-325 Mg) 1 tab Q6H PRN PO 11/12/16 22:45 11/14/16 08:53 (Morphine Inj) 2 mg Q2H PRN IV PUSH 11/12/16 22:45 (Morphine Inj) 4 mg Q2H PRN IV PUSH 11/12/16 22:45 11/14/16 13:23 (Zofran Inj) 4 mg Q6HR PRN IV PUSH 11/12/16 22:45 Miscellaneous Information Patient in critical care unit? Ass... Q361D .XX 11/12/16 22:45 (Chlorhexidine 2% Cloth) 3 pack DAILY@04 TOPICAL 11/13/16 04:00 11/17/16 04:01 11/14/16 03:13 (Chlorhexidine 2% Cloth) 3 pack UNSCH PRN TOPICAL 11/12/16 22:45 11/17/16 22:42 (Ventolin Hfa Inh) 2 puff Q4H PRN INH 11/12/16 23:45 11/14/16 06:40 (SoluMEDROL INJ) 60 mg Q6HR IV PUSH 11/13/16 05:15 11/14/16 13:22 Aspirin 81 mg 81 mg DAILY CHEW 11/13/16 09:00 11/14/16 08:52 (Vancomycin Inj/ NS 500 ml Inj) 515 ml @ 250 mls/hr Q24H IV 11/13/16 18:00 11/13/16 16:46 Miscellaneous Information SPECIFIC LAB TO BE DRAWN:VANCOMYCIN TROUGH DATE TO... ONCE ONCE .XX 11/15/16 17:45 11/15/16 17:46 Daptomycin 650 mg/ Sodium Chloride 100 ml @ 200 mls/hr Q24H IV 11/14/16 14:00 (Flagyl 500 Mg Inj) 100 ml @ 100 mls/hr Q8H IV 11/14/16 17:00 Vital Signs / I&O Vital Signs Date Time Temp Pulse Resp B/P Pulse Ox O2 Delivery O2 Flow Rate FiO2 11/14/16 10:00 102 11/14/16 08:21 98 Simple Mask 8.00 11/14/16 08:00 98.6 98 18 115/97 97 11/14/16 08:00 77 11/14/16 07:00 97 Simple Mask 8.00 11/14/16 06:00 100 11/14/16 05:24 20 11/14/16 04:00 66 11/14/16 04:00 98.8 98 18 146/75 98 11/14/16 02:00 101 11/14/16 00:00 101 11/14/16 00:00 98.6 101 20 162/72 97 11/13/16 22:00 96 11/13/16 20:00 100 11/13/16 20:00 98.6 100 20 136/64 97 11/13/16 19:39 93 Simple Mask 8.00 11/13/16 19:00 97 Venturi Mask 50 11/13/16 16:00 99.0 105 24 131/82 94 I/O 11/13/16 11/13/16 11/13/16 11/14/16 11/14/16 11/14/16 07:00 15:00 23:00 07:00 15:00 23:00 Intake Total 706 ml 1660 ml 1202 ml 1038 ml Output Total 350 ml 650 ml 500 ml 400 ml Balance 356 ml 1010 ml 702 ml 638 ml Intake Oral 600 ml IV Total 706 ml 1060 ml 1202 ml 1038 ml Output Urine Total 350 ml 650 ml 500 ml 400 ml Physical Exam GENERAL: NAD, AAOx3 SKIN: Warm and dry. HEAD: Atraumatic. Normocephalic. EYES: Pupils equal and round. No scleral icterus. No injection or drainage. ENT: No nasal bleeding or discharge. Mucous membranes pink and moist. NECK: Trachea midline. No JVD. CARDIOVASCULAR: Regular rate and rhythm. RESPIRATORY: No accessory muscle use. Decreased breath sounds bilaterally, rhonchi throughout GASTROINTESTINAL: Abdomen soft, non-tender, nondistended. Hepatic and splenic margins not palpable. MUSCULOSKELETAL: Lower extremity wrapped in MAGAN bandage NEUROLOGICAL: Awake and alert. No obvious cranial nerve deficits. Motor grossly within normal limits. Five out of 5 muscle strength in the arms and legs. Normal speech. PSYCHIATRIC: Appropriate mood and affect; insight and judgment normal. Laboratory Laboratory Tests Test 11/13/16 11/14/16 18:38 05:08 Troponin I 0.20 NG/ML White Blood Count 15.2 TH/MM3 Red Blood Count 2.85 MIL/MM3 Hemoglobin 7.8 GM/DL Hematocrit 24.1 % Mean Corpuscular Volume 84.7 FL Mean Corpuscular Hemoglobin 27.5 PG Mean Corpuscular Hemoglobin 32.5 % Concent Red Cell Distribution Width 18.1 % Platelet Count 249 TH/MM3 Mean Platelet Volume 6.9 FL Sodium Level 140 MEQ/L Potassium Level 3.8 MEQ/L Chloride Level 108 MEQ/L Carbon Dioxide Level 23.9 MEQ/L Anion Gap 8 MEQ/L Blood Urea Nitrogen 23 MG/DL Creatinine 1.21 MG/DL Estimat Glomerular Filtration 46 ML/MIN Rate Random Glucose 297 MG/DL Calcium Level 7.9 MG/DL Random Vancomycin Level 17.5 COMMENT Assessment and Plan Problem List: (1) Diabetic foot infection (2) Osteomyelitis of right foot (3) Demand ischemia (4) Septic shock (5) DM (diabetes mellitus) (6) HTN (hypertension) (7) CAD (coronary artery disease) Assessment and Plan 1) Elevated troponin due to demand ischemia from septic shock 2) Con't with medical management 3) For possible Right BKA tomorrow. Patient is high risk, but can not decrease her risk pre-operatively and seeing that her foot is causing her septic shock, she should not put off on surgery. Discussed with critical care team Problem Qualifiers (1) Osteomyelitis of right foot: Qualified Code: M86.9 - Osteomyelitis of right foot, unspecified type Luciano Russo DO Nov 14, 2016 13:38
[2016-11-14] MEDS: DAPTOmycin INJ 650 MG in SODIUM CHLORIDE 0.9% INJ 100 ML IV SCH (14:39)
--- NOTE | 2016-11-14 16:44 | PD.CAR.PN ---
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 I saw the patient in October 2016 and recommended below knee amputation. At this point, we have exhausted all other salvage options and the patient is recovering from a septic episode. Will take for R BKA in next 24 to 48h when well resuscitated and stable J 11/14/16 Patient with R foot gangrene at transection site with exposed tarsal bones Dr. Wheeler's opinion greatly appreciated Patient was yesterday unwilling to commit to surgery and wanted to wait another day or two. I explained to the patient that she will only get sicker and that the gangrene is now causing systemic symptoms and decline. Today, after speaking to me, the patient agrees to amputation tomorrow Scheduled for BKA in am. Objective: Vital Signs Date Time Temp Pulse Resp B/P Pulse Ox O2 Delivery O2 Flow Rate FiO2 11/14/16 16:00 97.7 103 20 151/98 92 11/14/16 16:00 109 11/14/16 14:00 102 11/14/16 12:00 97 11/14/16 12:00 97.8 103 22 138/105 97 11/14/16 10:00 102 11/14/16 08:21 98 Simple Mask 8.00 11/14/16 08:00 98.6 98 18 115/97 97 11/14/16 08:00 77 11/14/16 07:00 97 Simple Mask 8.00 11/14/16 06:00 100 11/14/16 05:24 20 11/14/16 04:00 66 11/14/16 04:00 98.8 98 18 146/75 98 11/14/16 02:00 101 11/14/16 00:00 101 11/14/16 00:00 98.6 101 20 162/72 97 11/13/16 22:00 96 11/13/16 20:00 100 11/13/16 20:00 98.6 100 20 136/64 97 11/13/16 19:39 93 Simple Mask 8.00 11/13/16 19:00 97 Venturi Mask 50 Labs: Laboratory Tests Test 11/14/16 05:08 White Blood Count 15.2 TH/MM3 (4.0-11.0) Red Blood Count 2.85 MIL/MM3 (4.00-5.30) Hemoglobin 7.8 GM/DL (11.6-15.3) Hematocrit 24.1 % (35.0-46.0) Mean Corpuscular Volume 84.7 FL (80.0-100.0) Mean Corpuscular Hemoglobin 27.5 PG (27.0-34.0) Mean Corpuscular Hemoglobin 32.5 % Concent (32.0-36.0) Red Cell Distribution Width 18.1 % (11.6-17.2) Platelet Count 249 TH/MM3 (150-450) Mean Platelet Volume 6.9 FL (7.0-11.0) Sodium Level 140 MEQ/L (136-145) Potassium Level 3.8 MEQ/L (3.5-5.1) Chloride Level 108 MEQ/L (98-107) Carbon Dioxide Level 23.9 MEQ/L (21.0-32.0) Anion Gap 8 MEQ/L (5-15) Blood Urea Nitrogen 23 MG/DL (7-18) Creatinine 1.21 MG/DL (0.50-1.00) Estimat Glomerular Filtration 46 ML/MIN (>89) Rate Random Glucose 297 MG/DL (74-106) Calcium Level 7.9 MG/DL (8.5-10.1) Random Vancomycin Level 17.5 COMMENT Result Diagram: 11/14/16 0508 11/14/16 0508 (1) Diabetic foot infection (2) Osteomyelitis of right foot (3) Demand ischemia (4) Septic shock (5) DM (diabetes mellitus) (6) HTN (hypertension) (7) CAD (coronary artery disease) Problem Qualifiers (1) Osteomyelitis of right foot: Qualified Code: M86.9 - Osteomyelitis of right foot, unspecified type Chantale Wakefield MD Nov 14, 2016 16:44
[2016-11-14] MEDS: VANCOMYCIN INJ 1,500 MG in SODIUM CHLORID 0.9% 500 ML INJ 500 ML IV SCH (17:39)
--- NOTE | 2016-11-14 17:45 | HHI.CCPN ---
Subjective Remarks/Hospital Course This is a 60yF with h/o DM, htn, atrial fibrillation and prior transmetatarsal amputation of right foot (podiatry Dr. Spaulding) in 10/2016 for osteomyelitis. She was on outpatient therapy with vancomycin and levaquin through existing RUE PICC line. She presents to the ED with complaints of weakness and right foot pain over the last 2-3 days. She was hypotensive in the emergency department which was only minimally responsive to 30 mL/kg ivf bolus. she was started on Levophed in the emergency department. In the ER, xray of the foot demonstrated gas in the soft tissues, concerning for recurrent, worsening osteomyelitis. When I evaluated the patient, she was somnolent but arousable. However, she was too somnolent to add any additional history and kept falling asleep on my exam. laboratory data is significant for wbc 9.3, hgb 7.9, cr 1.99, lactate 1.3, Trop 0.59. Critical care medicine is consulted to evaluate and manage septic shock in the setting of likely recurrent right foot osteomyelitis. SUBJ 11/13: Patient remains on 3 mics of Levophed for septic shock. Worsening hypoxemic respiratory failure now on BiPAP. Review of previous records indicated that Dr. Cooper has initially recommended right below-knee amputation. Dr. Wheeler was asked to give a second opinion. Patient opted for a limb salvage attempt. ID last admission was Dr. Conner. Right foot x-ray showing probable osteomyelitis. Vascular surgery may need to be re-consulted for right BKA- await ID, podiatry input 11/14: Off all pressors. At this time remains off BiPAP. Patient is agreeable to R below-knee amputation at this time, she spoke to Dr. Cooper Objective Vital Signs Date Time Temp Pulse Resp B/P Pulse Ox O2 Delivery O2 Flow Rate FiO2 11/14/16 16:00 97.7 103 20 151/98 92 11/14/16 08:21 Simple Mask 8.00 11/13/16 19:00 50 Intake and Output 11/13/16 11/13/16 11/14/16 08:00 16:00 00:00 Intake Total 706 ml 1660 ml 1202 ml Output Total 350 ml 650 ml 500 ml Balance 356 ml 1010 ml 702 ml Result Diagram: 11/14/16 0508 11/14/16 0508 Imaging Last Impressions Chest X-Ray 11/12/16 1533 Signed Impressions: Service Date/Time: Saturday, November 12, 2016 15:35 - CONCLUSION: 1. Interstitial opacities bilaterally could represent interstitial pulmonary edema. 2. Cardiac silhouette size is mildly enlarged. Femi Barron MD Foot X-Ray 11/12/16 0000 Signed Impressions: Service Date/Time: Saturday, November 12, 2016 15:39 - CONCLUSION: Extensive soft tissue defect/ulceration with soft tissue emphysema and findings concerning for osteomyelitis. Felix Murcia MD Objective Remarks gen: middle-aged female, lying in bed. On NC heent: perrl. mucous membranes dry. neck: no jvd. trachea midline. chest: on NC o2. equal, bilateral. clear to auscultation cv: normal rate, regular rhythm. no appreciable murmur abd: soft, nontender, nondistended. no guarding. extr: right foot wrapped in brenda wrap, (Per prevous note purulence from amputation site. erythema noted up to ankle) neuro: Alert awake oriented no focal deficits A/P Assessment and Plan Assessment: 60yF with history of DM, peripheral vascular disease and neuropathy who presents with RLE cellulitis and likely osteomyelitis with associated septic shock on vasopressors. She remains critically ill. She has a PICC line which has been in at home. Though this could be a source of her infection, it is much less likely and much more likely that her purulent right foot with evidence of air and likely osteomyelitis is the source of her septic shock. Keep the PICC line as central access for now. cultures have been drawn peripherally and from the PICC line from outside facility. If these are positive or if she becomes worsening unstable, then we will plan to d/c PICC line and place new central access. However, at this point, with a clearly identified source, we will plan to continue PICC line and use this for central access. Plan by systems: Neuro: metabolic encephalopathy Depression Diabetic neuropathy -- secondary to sepsis -- avoid long-acting sedatives -- hold cymbalta, gabapentin and tizanidine -- Morphine for pain not helping enough attempt one dose of Dilaudid Resp: Acute hypoxemic respiratory failure Atelectasis --Currently off BiPAP. --Good Saturation on nasal cannula --Patient may be developing acute lung injury secondary to sepsis --DuoNeb every 4 hours scheduled and when necessary --Wean o2 by NC for goal spo2 > 90% CV: Septic shock Type II NSTEMI/demand ischemia h/o hypertension Atrial fibrillation -- continue home amiodarone -- Aspirin 81 mg daily (checked with pharmacy -only negligible cross-reactivity btw Bactrim-Aspirin) -- hold antihypertensives given shock -- s/p 30mL/kg bolus -- LR @ 150 cc/hr-reduce to KVO -- norepinephrine for goal map > 65 mmHg-Currently off -- trend troponins. likely elevated secondary to stress and demand ischemia combined with poor renal clearance. -- Cardiology consulted, for NSTEMI and in anticipation of possible BKA clearance-D/W Dr. Russo -- ECHO Renal: Acute kidney injury -- likely secondary to sepsis -- [place] catheter -- strict i/o's -- iv hydration as above. -- Creatinine improved from 1.99-1.55 FEN/GI: Acute intravascular volume depletion -- ICU electrolyte protocol -- ivf as above -- npo.after midnight Heme/ID: Right foot osteomyelitis, cellulitis septic shock -- Dr. Cooper planning on R BKA in am -- ABX- Vancomycin, Aztreonam, Flagyl. -- ID Dr. Conner -- has prior grown PSAE and MRSA in wound. -- s/p additional 500mg vanc iv for total loading dose of 20mg/kg iv x 1, pharmacy assistance with dosing. -- aztreonam 1gm iv q8hr given renal function. -- cultures from wound, blood. Endocrine: diabetes hyperglycemia of critical illness -- ssi, med, q6h Prophyalxis: -- SQH, SCDs, protonix iv. Lines: -- OSH PICC line remains for now. may require new central access. -- [place] Dispo: -- admit to ICU. I have spent in excess of 30 minutes discontinuously in the care and management of this critically ill patient. This time is exclusive of procedures and includes but is not limited to evaluation of the patient, review of the medical record, discussions with consultants, nursing staff, respiratory therapy. Claudia Kahn MD Nov 14, 2016 17:45
[2016-11-14] MEDS ORDERED: HYDROmorphone HCL PF 2 MG/ML VIAL IV ONE (18:00)
[2016-11-14] MEDS: PANTOPRAZOLE SODIUM 40 MG VIAL IV PUSH SCH (21:04)
[2016-11-15] VITALS (12 sets, daily range): BP systolic 138–149; BP diastolic 76–98; PULSE 100–111; RESP 15–23; TEMP 97.5–98.5; O2SAT 95–98
[2016-11-15] MEDS: HEPARIN SODIUM - SQ 10,000 UNITS/ML VIAL SQ SCH ×3 (02:00→20:01)
[2016-11-15] MEDS: MORPHINE SULFATE 4 MG/ML INJ IV PUSH PRN ×8 (02:17→22:38)
[2016-11-15] MEDS: CHLORHEXIDINE GLUCONATE 2 % 1 PACK (2 CLOTHS)(taper/protocol) TOPICAL SCH (03:35)
[2016-11-15] MEDS: RESP: ALBUTEROL 2.5 MG/IPRATROPIUM 0.5 MG NEB (SCH) NEB ×6 (03:56→23:06)
[2016-11-15 04:06] LABS: AUTOMATED NEUTROPHIL # 18.8 TH/MM3 (1.8-7.7); BASOPHIL % 0.1 % (0.0-2.0); HEMATOCRIT 25.8 % (35.0-46.0); LYMPH % 2.8 % (9.0-44.0); LYMPHOCYTE # 0.6 TH/MM3 (1.0-4.8); MEAN CORPUSCULAR HEMOGLOBIN 26.7 PG (27.0-34.0); MEAN CORPUSCULAR HGB CONC 31.1 % (32.0-36.0); NEUT % 94.1 % (16.0-70.0); PLATELET COUNT 269 TH/MM3 (150-450); RED CELL DISTRIBUTION WIDTH 18.2 % (11.6-17.2)
[2016-11-15 04:09] LABS: HEMO FLAGS AUTO DIFF
[2016-11-15 04:16] LABS: INTERNATIONAL NORMALIZED RATIO 1.5 RATIO; PROTHROMBIN TIME - PATIENT 16.7 SEC (9.8-11.6)
[2016-11-15 04:33] LABS: ALKALINE PHOSPHATASE 60 U/L (45-117); ALT (GPT) 20 U/L (10-53); ANION GAP 10 MEQ/L (5-15); AST (GOT) 48 U/L (15-37); BICARBONATE 24.5 MEQ/L (21.0-32.0); BLOOD UREA NITROGEN 34 MG/DL (7-18); CHLORIDE 111 MEQ/L (98-107); CREATINE KINASE 145 U/L (26-192); GLOMERULAR FILTRATION RATE 46 ML/MIN (>89); MAGNESIUM 1.6 MG/DL (1.5-2.5); POTASSIUM 4.3 MEQ/L (3.5-5.1); SODIUM (NA) 145 MEQ/L (136-145); TOTAL BILIRUBIN ADULT 0.5 MG/DL (0.2-1.0)
[2016-11-15] MEDS: methylPREDNISolone SOD SUCC 125 MG/2 ML VIAL IV PUSH SCH ×4 (04:47→22:38)
[2016-11-15] MEDS: INSULIN NovoLIN REGULAR SUPPLEMENTAL SCALE SQ SCH ×4 (04:47→22:38)
[2016-11-15 05:18] LABS: BANDS 4 % (0-6); CORRECTED NUCLEATED RBC 1 /100 WBC (0-0); NEUTROPHIL # MANUAL DIFF 19.6 TH/MM3 (1.8-7.7); PLATELET ESTIMATE SMEAR NORMAL (NORMAL); PLATELET MORPHOLOGY NORMAL (NORMAL); POLYS (SEG NEUTROPHILS) 94 % (16-70); SCAN/DIFF FINAL DIFF MANUAL; WBC DIFF SAMPLE 100
--- NOTE | 2016-11-15 07:08 | RADRPT ---
EXAM DATE/TIME: 11/15/2016 04:25 [facility] COMPARISON: CHEST SINGLE AP, November 13, 2016, 5:37. INDICATIONS : Shortness of breath. MEDICAL HISTORY : Hyperthyroidism. SURGICAL HISTORY : Mastectomy, bilateral. ENCOUNTER: Subsequent ACUITY: 4 - 6 days PAIN SCORE: Non-responsive. LOCATION: Bilateral chest FINDINGS: There continues to be interstitial and airspace pulmonary infiltrates in both lung bases. This is not significantly changed compared to the prior study. The heart size is stable. No definite pleural eff usions are seen. CONCLUSION: No significant interval change. Poncho Suárez MD on November 15, 2016 at 7:05 Board Certified Radiologist. This report was verified electronically.
[2016-11-15] MEDS: AMIODARONE 200 MG TAB PO SCH (08:22)
[2016-11-15] MEDS: metroNIDAZOLE 500 MG INJ 100 ML IV SCH ×2 (08:22→17:05)
[2016-11-15] MEDS: AZTREONAM INJ 1,000 MG in SODIUM CHLORIDE 0.9% INJ 100 ML IV SCH ×3 (08:22→22:39)
--- NOTE | 2016-11-15 08:27 | PD.CARD.PN ---
Subjective Subjective Remarks No chest pain Shortness of breath stable Objective Medications Current Medications Medications (Trade) Dose Ordered Sig/Seng Route Start Time Stop Time Status Last Admin (Levophed-Dextrose Drip) 250 ml @ 0 mls/hr TITRATE IV 11/12/16 17:30 11/12/16 17:41 (D50w (Vial) Inj) 25 ml UNSCH PRN IV PUSH 11/12/16 17:30 (NovoLIN R SUPPLEMENTAL SCALE) 1 Q6HR SQ 11/12/16 18:00 11/15/16 04:47 Magnesium Oxide 800 mg 800 mg UNSCH PRN PO 11/12/16 17:30 Magnesium Sulfate 4 gm/Sodium Chloride 100 ml @ 50 mls/hr UNSCH PRN IV 11/12/16 17:30 Magnesium Sulfate 2 gm/Sodium Chloride 100 ml @ 50 mls/hr UNSCH PRN IV 11/12/16 17:30 Potassium Chloride 100 ml @ 50 mls/hr Q2H PRN IV 11/12/16 17:30 Potassium Chloride 100 ml @ 50 mls/hr Q2H PRN IV 11/12/16 17:30 Potassium Chloride 100 ml @ 50 mls/hr Q2H PRN IV 11/12/16 17:30 (KCl 40 Meq Premix Inj) 100 ml @ 25 mls/hr UNSCH PRN IV 11/12/16 17:30 (K-Phos) 2,000 mg Q4H PRN PO 11/12/16 17:30 Potassium Phosphate 2000 mg 2,000 mg UNSCH PRN PO/TUBE 11/12/16 17:30 Potassium Phosphate 30 mmol/ Sodium Chloride 260 ml @ 42 mls/hr UNSCH PRN IV 11/12/16 17:30 Sodium Phosphate 30 mmol/Sodium Chloride 250 ml @ 42 mls/hr UNSCH PRN IV 11/12/16 17:30 Pharmacy Profile Note 0 ml @ 0 mls/hr UNSCH OTHER 11/12/16 17:30 (Azactam Inj/NS Inj) 100 ml @ 200 mls/hr Q8H IV 11/13/16 01:00 11/15/16 08:22 (Heparin Inj) 5,000 units Q8HR SQ 11/12/16 22:00 11/14/16 21:05 (Protonix Inj) 40 mg Q24H IV PUSH 11/12/16 22:00 11/14/16 21:04 (Cordarone) 200 mg DAILY PO 11/13/16 09:00 11/15/16 08:22 (Percocet 10-325 Mg) 1 tab Q6H PRN PO 11/12/16 22:45 11/14/16 08:53 (Morphine Inj) 2 mg Q2H PRN IV PUSH 11/12/16 22:45 11/15/16 07:09 (Morphine Inj) 4 mg Q2H PRN IV PUSH 11/12/16 22:45 11/14/16 21:05 (Zofran Inj) 4 mg Q6HR PRN IV PUSH 11/12/16 22:45 11/14/16 15:20 Miscellaneous Information Patient in critical care unit? Ass... Q361D .XX 11/12/16 22:45 (Chlorhexidine 2% Cloth) 3 pack DAILY@04 TOPICAL 11/13/16 04:00 11/17/16 04:01 11/15/16 03:35 (Chlorhexidine 2% Cloth) 3 pack UNSCH PRN TOPICAL 11/12/16 22:45 11/17/16 22:42 (Ventolin Hfa Inh) 2 puff Q4H PRN INH 11/12/16 23:45 11/14/16 06:40 (SoluMEDROL INJ) 60 mg Q6HR IV PUSH 11/13/16 05:15 11/15/16 04:47 Aspirin 81 mg 81 mg DAILY CHEW 11/13/16 09:00 11/14/16 08:52 (Vancomycin Inj/ NS 500 ml Inj) 515 ml @ 250 mls/hr Q24H IV 11/13/16 18:00 11/14/16 17:39 Miscellaneous Information SPECIFIC LAB TO BE DRAWN:VANCOMYCIN TROUGH DATE TO... ONCE ONCE .XX 11/15/16 17:45 11/15/16 17:46 Daptomycin 650 mg/ Sodium Chloride 100 ml @ 200 mls/hr Q24H IV 11/14/16 14:00 11/14/16 14:39 (Flagyl 500 Mg Inj) 100 ml @ 100 mls/hr Q8H IV 11/14/16 17:00 11/15/16 08:22 Vital Signs / I&O Vital Signs Date Time Temp Pulse Resp B/P Pulse Ox O2 Delivery O2 Flow Rate FiO2 11/15/16 06:00 106 11/15/16 04:00 104 11/15/16 04:00 97.5 104 15 146/98 98 11/15/16 02:00 111 11/15/16 00:00 106 11/15/16 00:00 98.2 106 15 149/96 98 11/14/16 22:00 103 11/14/16 20:00 98.4 107 17 139/83 99 11/14/16 20:00 107 11/14/16 19:37 94 Simple Mask 8.00 11/14/16 19:00 Simple Mask 8.00 11/14/16 18:00 106 11/14/16 16:00 97.7 103 20 151/98 92 11/14/16 16:00 109 11/14/16 14:00 102 11/14/16 12:00 97 11/14/16 12:00 97.8 103 22 138/105 97 11/14/16 10:00 102 I/O 11/14/16 11/14/16 11/14/16 11/15/16 11/15/16 11/15/16 07:00 15:00 23:00 07:00 15:00 23:00 Intake Total 1038 ml 744 ml 865 ml 243 ml Output Total 400 ml 400 ml 325 ml 250 ml Balance 638 ml 344 ml 540 ml -7 ml IV Total 1038 ml 744 ml 865 ml 243 ml Output Urine Total 400 ml 300 ml 325 ml 250 ml Stool Total 100 ml # Bowel Movements 1 1 Physical Exam GENERAL: NAD, AAOx3 SKIN: Warm and dry. HEAD: Atraumatic. Normocephalic. EYES: Pupils equal and round. No scleral icterus. No injection or drainage. ENT: No nasal bleeding or discharge. Mucous membranes pink and moist. NECK: Trachea midline. No JVD. CARDIOVASCULAR: Regular rate and rhythm. RESPIRATORY: No accessory muscle use. Decreased breath sounds bilaterally, rhonchi throughout GASTROINTESTINAL: Abdomen soft, non-tender, nondistended. Hepatic and splenic margins not palpable. MUSCULOSKELETAL: Lower extremity wrapped in MAGAN bandage NEUROLOGICAL: Awake and alert. No obvious cranial nerve deficits. Motor grossly within normal limits. Five out of 5 muscle strength in the arms and legs. Normal speech. PSYCHIATRIC: Appropriate mood and affect; insight and judgment normal. Laboratory Laboratory Tests Test 11/14/16 11/15/16 17:40 03:21 Blood Type A POSITIVE Antibody Screen NEGATIVE White Blood Count 20.0 TH/MM3 Red Blood Count 3.00 MIL/MM3 Hemoglobin 8.0 GM/DL Hematocrit 25.8 % Mean Corpuscular Volume 86.0 FL Mean Corpuscular Hemoglobin 26.7 PG Mean Corpuscular Hemoglobin 31.1 % Concent Red Cell Distribution Width 18.2 % Platelet Count 269 TH/MM3 Mean Platelet Volume 7.0 FL Neutrophils (%) (Auto) 94.1 % Lymphocytes (%) (Auto) 2.8 % Monocytes (%) (Auto) 3.0 % Eosinophils (%) (Auto) 0.0 % Basophils (%) (Auto) 0.1 % Neutrophils # (Auto) 18.8 TH/MM3 Lymphocytes # (Auto) 0.6 TH/MM3 Monocytes # (Auto) 0.6 TH/MM3 Eosinophils # (Auto) 0.0 TH/MM3 Basophils # (Auto) 0.0 TH/MM3 CBC Comment AUTO DIFF Differential Total Cells 100 Counted Neutrophils % (Manual) 94 % Band Neutrophils % 4 % Lymphocytes % 2 % Neutrophils # (Manual) 19.6 TH/MM3 Nucleated Red Blood Cells 1 /100 WBC Differential Comment FINAL DIFF MANUAL Platelet Estimate NORMAL Platelet Morphology Comment NORMAL Prothrombin Time 16.7 SEC Prothromb Time International 1.5 RATIO Ratio Sodium Level 145 MEQ/L Potassium Level 4.3 MEQ/L Chloride Level 111 MEQ/L Carbon Dioxide Level 24.5 MEQ/L Anion Gap 10 MEQ/L Blood Urea Nitrogen 34 MG/DL Creatinine 1.21 MG/DL Estimat Glomerular Filtration 46 ML/MIN Rate Random Glucose 246 MG/DL Calcium Level 7.8 MG/DL Magnesium Level 1.6 MG/DL Total Bilirubin 0.5 MG/DL Aspartate Amino Transf 48 U/L (AST/SGOT) Alanine Aminotransferase 20 U/L (ALT/SGPT) Alkaline Phosphatase 60 U/L Total Creatine Kinase 145 U/L Total Protein 7.1 GM/DL Albumin 2.2 GM/DL Assessment and Plan Problem List: (1) Diabetic foot infection (2) Osteomyelitis of right foot (3) Demand ischemia (4) Septic shock (5) DM (diabetes mellitus) (6) HTN (hypertension) (7) CAD (coronary artery disease) Assessment and Plan 1) Elevated troponin due to demand ischemia from septic shock 2) Con't with medical management 3) For possible Right BKA today. Patient is high risk, but can not decrease her risk pre-operatively and seeing that her foot is causing her septic shock, she should not put off on surgery. Discussed with critical care team Problem Qualifiers (1) Osteomyelitis of right foot: Qualified Code: M86.9 - Osteomyelitis of right foot, unspecified type Luciano Russo DO Nov 15, 2016 08:27
[2016-11-15] MEDS: ASPIRIN 81 MG CHEW TAB CHEW SCH (08:30)
[2016-11-15] MEDS ORDERED: ARTIFICIAL TEARS OPTH OINT 3.5 APPLIC/3.5 GM TUBO ONE (10:00)
[2016-11-15] MEDS ORDERED: KETAMINE HCL 500 MG/5 ML VIAL ONE (10:26)
[2016-11-15] MEDS ORDERED: ePHEDrine/NS 25 MG/5 ML SYR IV ONE (12:00)
[2016-11-15] MEDS ORDERED: PROPOFOL 200 MG/20 ML AMP IV ONE (12:00)
[2016-11-15] MEDS ORDERED: methylPREDNISolone SOD SUCC 125 MG/2 ML VIAL IV ONE (12:00)
[2016-11-15] MEDS ORDERED: PHENYLEPH/NS 1000 MCG/10 ML SYR IV ONE (12:00)
[2016-11-15] MEDS ORDERED: ONDANSETRON HCL 4 MG/2 ML VIAL IV PUSH ONE (12:00)
[2016-11-15] MEDS ORDERED: INSULIN HUMAN REGULAR 1,000 UNITS/10 ML VIAL ONE (12:27)
[2016-11-15] MEDS ORDERED: DO NOT ADM ANY ANTICOAGULANT DRUGS PRN (12:30)
[2016-11-15] MEDS ORDERED: fentaNYL CITRATE 250 MCG/5 ML AMP ONE (12:41)
[2016-11-15] MEDS ORDERED: MIDAZOLAM HCL 2 MG/2 ML VIAL ONE (14:20)
--- NOTE | 2016-11-15 14:28 | HHI.CCPN ---
Subjective Remarks/Hospital Course This is a 60yF with h/o DM, htn, atrial fibrillation and prior transmetatarsal amputation of right foot (podiatry Dr. Spaulding) in 10/2016 for osteomyelitis. She was on outpatient therapy with vancomycin and levaquin through existing RUE PICC line. She presents to the ED with complaints of weakness and right foot pain over the last 2-3 days. She was hypotensive in the emergency department which was only minimally responsive to 30 mL/kg ivf bolus. she was started on Levophed in the emergency department. In the ER, xray of the foot demonstrated gas in the soft tissues, concerning for recurrent, worsening osteomyelitis. When I evaluated the patient, she was somnolent but arousable. However, she was too somnolent to add any additional history and kept falling asleep on my exam. laboratory data is significant for wbc 9.3, hgb 7.9, cr 1.99, lactate 1.3, Trop 0.59. Critical care medicine is consulted to evaluate and manage septic shock in the setting of likely recurrent right foot osteomyelitis. SUBJ 11/13: Patient remains on 3 mics of Levophed for septic shock. Worsening hypoxemic respiratory failure now on BiPAP. Review of previous records indicated that Dr. Cooper has initially recommended right below-knee amputation. Dr. Wheeler was asked to give a second opinion. Patient opted for a limb salvage attempt. ID last admission was Dr. Conner. Right foot x-ray showing probable osteomyelitis. Vascular surgery may need to be re-consulted for right BKA- await ID, podiatry input 11/14: Off all pressors. At this time remains off BiPAP. Patient is agreeable to R below-knee amputation at this time, she spoke to Dr. Cooper 11/15: Patient was seen after right below-knee amputation by Dr. Cooper. Breathing comfortably. Remains off pressors. Objective Vital Signs Date Time Temp Pulse Resp B/P Pulse Ox O2 Delivery O2 Flow Rate FiO2 11/15/16 13:00 97.9 101 16 149/77 96 11/15/16 12:40 Simple Mask 8 11/13/16 19:00 50 Intake and Output 11/14/16 11/14/16 11/15/16 08:00 16:00 00:00 Intake Total 1038 ml 744 ml 865 ml Output Total 400 ml 400 ml 325 ml Balance 638 ml 344 ml 540 ml Result Diagram: 11/15/16 0321 11/15/16 0321 Other Results Microbiology Date/Time Procedure Status Source Growth 11/12/16 16:20 Gram Stain - Final Complete Wound Foot 11/12/16 16:20 Wound Culture - Final Complete Enterococcus Faecium Vre Imaging Last Impressions Chest X-Ray 11/12/16 1533 Signed Impressions: Service Date/Time: Saturday, November 12, 2016 15:35 - CONCLUSION: 1. Interstitial opacities bilaterally could represent interstitial pulmonary edema. 2. Cardiac silhouette size is mildly enlarged. Femi Barron MD Foot X-Ray 11/12/16 0000 Signed Impressions: Service Date/Time: Saturday, November 12, 2016 15:39 - CONCLUSION: Extensive soft tissue defect/ulceration with soft tissue emphysema and findings concerning for osteomyelitis. Felix Murcia MD Objective Remarks gen: middle-aged female, lying in bed. On NC heent: perrl. mucous membranes dry. neck: no jvd. trachea midline. chest: on simple mask O2. equal, bilateral. clear to auscultation cv: normal rate, regular rhythm. no appreciable murmur abd: soft, nontender, nondistended. no guarding. ext: s/p R AKA today neuro: Alert awake oriented no focal deficits A/P Assessment and Plan Assessment: 60yF with history of DM, peripheral vascular disease and neuropathy who presents with RLE cellulitis and likely osteomyelitis with associated septic shock on vasopressors. She remains critically ill. She has a PICC line which has been in at home. Though this could be a source of her infection, it is much less likely and much more likely that her purulent right foot with evidence of air and likely osteomyelitis is the source of her septic shock. Keep the PICC line as central access for now. cultures have been drawn peripherally and from the PICC line from outside facility. If these are positive or if she becomes worsening unstable, then we will plan to d/c PICC line and place new central access. s/p right BKA today 11/15/16 Plan by systems: Neuro: metabolic encephalopathy Depression Diabetic neuropathy -- Encephalopathy secondary to sepsis-now resolved -- avoid long-acting sedatives -- hold Cymbalta, gabapentin and tizanidine -- Pain control with morphine Resp: Acute hypoxemic respiratory failure Atelectasis --Currently off BiPAP-use when necessary --Good Saturation on simple mask --DuoNeb every 4 hours scheduled and when necessary --Wean o2 by [place] for goal spo2 > 90% CV: Septic shock-resolved Type II NSTEMI/demand ischemia h/o hypertension Atrial fibrillation -- continue home amiodarone -- Aspirin 81 mg daily (checked with pharmacy -only negligible cross-reactivity btw Bactrim-Aspirin) -- hold antihypertensives given sepsis -- s/p 30mL/kg bolus -- Off norepinephrine -- trend troponins. likely elevated secondary to stress and demand ischemia combined with poor renal clearance. -- Cardiology consulted, for NSTEMI and in anticipation of possible BKA clearance-D/W Dr. Russo -- ECHO- mild LVH. concentric hypertrophy. systolic function severely reduced. EF 25% to 30%. Renal: Acute kidney injury -- likely secondary to sepsis -- york catheter -- strict i/o's -- iv hydration as above. -- Creatinine improved from 1.99 today 1.21 FEN/GI: Acute intravascular volume depletion -- ICU electrolyte protocol -- ivf as above Heme/ID: Right foot osteomyelitis, cellulitis septic shock -- s/p right BKA by Dr. Kenneth villa 11/15/16 -- ABX- Daptomycin, Aztreonam, Flagyl. -- ID Dr. Conner -- has prior grown PSAE and MRSA in wound. Cuture this time from wound VRE. Endocrine: diabetes hyperglycemia of critical illness -- ssi, med, q6h Prophyalxis: -- SQH, SCDs, protonix iv. Lines: -- OSH PICC line remains for now. may require new central access. -- york Dispo: -- admit to ICU. Level 3 Continue ICU care Claudia Kahn MD Nov 15, 2016 14:28 of this critically ill patient. This time is exclusive of procedures and includes but is not limited to evaluation of the patient, review of the medical record, discussions with consultants, nursing staff, respiratory therapy. Claudia Kahn MD Nov 15, 2016 14:28
--- NOTE | 2016-11-15 15:24 | HHI.IDPN ---
Subjective Subjective Remarks ID COVERAGE 60 year old female admitted in septic shock Has been on Abx at home for foot infection Notes reviewed Just had RBKA C/O pain C/O SOB, on FM BP better, off pressors C/S with VRE Antibiotics Azactam Flagyl Vancomycin Lines PICC Past Medical History Reviewed Allergies: Coded Allergies: Bactrim (Verified Allergy, Severe, Shortness of Breath, 11/12/16) Iodine (Verified Allergy, Severe, THROAT SWELLS, 11/12/16) pt states does not have a allergy to Iodine 01/11/16 JF Penicillin (Verified Allergy, Severe, STOPPED BREATHING, 11/12/16) Shellfish (Verified Allergy, Severe, THROAT SWELLS, 11/12/16) *MDRO Multi-Drug Resistant Organism (Verified Adverse Reaction, Unknown, ) 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 Vital Signs Date Time Temp Pulse Resp B/P Pulse Ox O2 Delivery O2 Flow Rate FiO2 11/15/16 13:00 97.9 101 16 149/77 96 11/15/16 12:40 97.9 98 16 142/85 96 Simple Mask 8 11/15/16 12:30 99 15 144/88 95 Simple Mask 8 11/15/16 12:15 102 15 153/89 96 Simple Mask 10 11/15/16 12:05 97.9 103 14 158/85 90 Simple Mask 10 11/15/16 08:00 98.4 105 16 138/89 98 11/15/16 08:00 106 11/15/16 07:14 14 11/15/16 07:00 98 Simple Mask 8.00 11/15/16 06:00 106 11/15/16 04:00 104 11/15/16 04:00 97.5 104 15 146/98 98 11/15/16 02:00 111 11/15/16 00:00 106 11/15/16 00:00 98.2 106 15 149/96 98 11/14/16 22:00 103 11/14/16 20:00 98.4 107 17 139/83 99 11/14/16 20:00 107 11/14/16 19:37 94 Simple Mask 8.00 11/14/16 19:00 Simple Mask 8.00 11/14/16 18:00 106 11/14/16 16:00 97.7 103 20 151/98 92 11/14/16 16:00 109 11/14/16 11/14/16 11/15/16 15:00 23:00 07:00 Intake Total 744 ml 865 ml 243 ml Output Total 400 ml 325 ml 250 ml Balance 344 ml 540 ml -7 ml IV Total 744 ml 865 ml 243 ml Output Urine Total 300 ml 325 ml 250 ml Stool Total 100 ml # Bowel Movements 1 1 . Laboratory Tests Test 11/14/16 11/15/16 05:08 03:21 White Blood Count 15.2 TH/MM3 20.0 TH/MM3 Red Blood Count 2.85 MIL/MM3 3.00 MIL/MM3 Hemoglobin 7.8 GM/DL 8.0 GM/DL Hematocrit 24.1 % 25.8 % Mean Corpuscular Volume 84.7 FL 86.0 FL Mean Corpuscular Hemoglobin 27.5 PG 26.7 PG Mean Corpuscular Hemoglobin 32.5 % 31.1 % Concent Red Cell Distribution Width 18.1 % 18.2 % Platelet Count 249 TH/MM3 269 TH/MM3 Mean Platelet Volume 6.9 FL 7.0 FL Neutrophils (%) (Auto) 94.1 % Lymphocytes (%) (Auto) 2.8 % Monocytes (%) (Auto) 3.0 % Eosinophils (%) (Auto) 0.0 % Basophils (%) (Auto) 0.1 % Neutrophils # (Auto) 18.8 TH/MM3 Lymphocytes # (Auto) 0.6 TH/MM3 Monocytes # (Auto) 0.6 TH/MM3 Eosinophils # (Auto) 0.0 TH/MM3 Basophils # (Auto) 0.0 TH/MM3 CBC Comment AUTO DIFF Differential Total Cells 100 Counted Neutrophils % (Manual) 94 % Band Neutrophils % 4 % Lymphocytes % 2 % Neutrophils # (Manual) 19.6 TH/MM3 Nucleated Red Blood Cells 1 /100 WBC Differential Comment FINAL DIFF MANUAL Platelet Estimate NORMAL Platelet Morphology Comment NORMAL Laboratory Tests Test 11/13/16 11/14/16 11/15/16 18:38 05:08 03:21 Troponin I 0.20 NG/ML Sodium Level 140 MEQ/L 145 MEQ/L Potassium Level 3.8 MEQ/L 4.3 MEQ/L Chloride Level 108 MEQ/L 111 MEQ/L Carbon Dioxide Level 23.9 MEQ/L 24.5 MEQ/L Anion Gap 8 MEQ/L 10 MEQ/L Blood Urea Nitrogen 23 MG/DL 34 MG/DL Creatinine 1.21 MG/DL 1.21 MG/DL Estimat Glomerular Filtration 46 ML/MIN 46 ML/MIN Rate Random Glucose 297 MG/DL 246 MG/DL Calcium Level 7.9 MG/DL 7.8 MG/DL Magnesium Level 1.6 MG/DL Total Bilirubin 0.5 MG/DL Aspartate Amino Transf 48 U/L (AST/SGOT) Alanine Aminotransferase 20 U/L (ALT/SGPT) Alkaline Phosphatase 60 U/L Total Creatine Kinase 145 U/L Total Protein 7.1 GM/DL Albumin 2.2 GM/DL Microbiology Date/Time Procedure Status Source Growth 11/12/16 16:20 Aerobic Blood Culture - Preliminary Resulted Blood Peripheral NO GROWTH IN 3 DAYS 11/12/16 16:20 Anaerobic Blood Culture - Preliminary Resulted Blood Peripheral NO GROWTH IN 3 DAYS 11/12/16 16:20 Aerobic Blood Culture - Preliminary Resulted Blood Peripheral NO GROWTH IN 3 DAYS 11/12/16 16:20 Anaerobic Blood Culture - Preliminary Resulted Blood Peripheral NO GROWTH IN 3 DAYS 11/12/16 16:20 Gram Stain - Final Complete Wound Foot 11/12/16 16:20 Wound Culture - Final Complete Enterococcus Faecium Vre Imaging Last Impressions Chest X-Ray 11/13/16 0000 Signed Impressions: Service Date/Time: Sunday, November 13, 2016 05:37 - CONCLUSION: Persistent bibasilar consolidation. Cardiomegaly and interstitial prominence. Jean Costa MD Foot X-Ray 11/12/16 0000 Signed Impressions: Service Date/Time: Saturday, November 12, 2016 15:39 - CONCLUSION: Extensive soft tissue defect/ulceration with soft tissue emphysema and findings concerning for osteomyelitis. Felix Murcia MD Physical Exam GENERAL: Awake and alert, looks dyspneic at rest, on FM SKIN: Cool and dry, no generalized rash Breast: sp b/l mastectomy with well healed scars HEENT: No scleral icterus. No injection or drainage. Nose without bleeding or purulent drainage. Moist mucosa NECK: Trachea midline. Supple, nontender. . CARDIOVASCULAR: Regular rate and rhythm without murmurs, gallops, or rubs. RESPIRATORY/CHEST: Coarse BS, rales at bases GASTROINTESTINAL: Abdomen soft globular, non-tender, mildly distended. No hepato -splenomegaly, or palpable masses. No guarding. Bowel sounds present. Stoma in place LLQ with a small amount of stool GENITOURINARY: Avendano catheter in place with clear yellow urine MUSCULOSKELETAL: Extremities without clubbing, cyanosis, Has dry intact dressing to RLE. NEUROLOGICAL: Awake and alert. Follows commands. Normal speech Moves all extremities. PSYCHIATRIC: Calm and cooperative LIMES: PICC and PIV with no evidence of infection Assessment & Plan Remarks IMPRESSION MRSA DFI, osteo R foot S/P Chopart in the settings of PVD - failed amputation Severe unreconstructable PVD Respiratory failure due to CHF Hypotension, suspected septic shock Multiple med prob including COPD, CHF HIgh grade PCN allergy (anaphylaxis) PLAN Continue Cubicin for VRE - likely will D/C early next since infected foot is gone Continue Azactam Continue Flagyl Follow C/S - if nothing else on C/S, stop Azactam and Flagyl this weekend Monitor progress D/W RN Dr Briceno covering this weekend Aleta Burr MD Nov 15, 2016 15:24
[2016-11-15] MEDS: DAPTOmycin INJ 650 MG in SODIUM CHLORIDE 0.9% INJ 100 ML IV SCH (15:31)
[2016-11-15] MEDS ORDERED: PHARMACY ORDERED LAB ONE (17:45)
[2016-11-15] MEDS: PANTOPRAZOLE SODIUM 40 MG VIAL IV PUSH SCH (19:59)
[2016-11-15] MEDS ORDERED: VANCOMYCIN INJ 1,500 MG in SODIUM CHLORID 0.9% 500 ML INJ 500 ML IV SCH (20:00)
[2016-11-16] VITALS (13 sets, daily range): BP systolic 142–155; BP diastolic 76–85; PULSE 94–106; RESP 15–21; TEMP 98–98.9; O2SAT 93–98
[2016-11-16] MEDS: metroNIDAZOLE 500 MG INJ 100 ML IV SCH ×4 (00:48→23:59)
[2016-11-16] MEDS: MORPHINE SULFATE 4 MG/ML INJ IV PUSH PRN ×6 (00:48→23:58)
[2016-11-16 03:05] LABS: AUTOMATED NEUTROPHIL # 13.7 TH/MM3 (1.8-7.7); BASOPHIL % 0.2 % (0.0-2.0); HEMATOCRIT 24.7 % (35.0-46.0); LYMPH % 5.3 % (9.0-44.0); LYMPHOCYTE # 0.8 TH/MM3 (1.0-4.8); MEAN CELL VOLUME 85.8 FL (80.0-100.0); MEAN CORPUSCULAR HEMOGLOBIN 26.5 PG (27.0-34.0); MEAN CORPUSCULAR HGB CONC 30.9 % (32.0-36.0); MONO % 3.8 % (0.0-8.0); NEUT % 90.7 % (16.0-70.0); PLATELET COUNT 245 TH/MM3 (150-450); RED BLOOD COUNT 2.88 MIL/MM3 (4.00-5.30); RED CELL DISTRIBUTION WIDTH 18.1 % (11.6-17.2)
[2016-11-16 03:10] LABS: HEMO FLAGS AUTO DIFF
[2016-11-16 03:32] LABS: BICARBONATE 23.4 MEQ/L (21.0-32.0); POTASSIUM 4.5 MEQ/L (3.5-5.1)
[2016-11-16 03:37] LABS: BANDS 5 % (0-6); CORRECTED NUCLEATED RBC 3 /100 WBC (0-0); METAMYELOCYTES 2 % (0-1); POLYS (SEG NEUTROPHILS) 86 % (16-70); WBC DIFF SAMPLE 100
[2016-11-16 03:39] LABS: PLATELET ESTIMATE SMEAR NORMAL (NORMAL); PLATELET MORPHOLOGY NORMAL (NORMAL); SCAN/DIFF FINAL DIFF MANUAL
[2016-11-16] MEDS: RESP: ALBUTEROL 2.5 MG/IPRATROPIUM 0.5 MG NEB (SCH) NEB ×6 (03:54→23:18)
[2016-11-16] MEDS: CHLORHEXIDINE GLUCONATE 2 % 1 PACK (2 CLOTHS)(taper/protocol) TOPICAL SCH (04:00)
[2016-11-16] MEDS: HEPARIN SODIUM - SQ 10,000 UNITS/ML VIAL SQ SCH ×3 (04:50→20:13)
[2016-11-16] MEDS: methylPREDNISolone SOD SUCC 125 MG/2 ML VIAL IV PUSH SCH ×3 (04:50→20:20)
[2016-11-16] MEDS: INSULIN NovoLIN REGULAR SUPPLEMENTAL SCALE SQ SCH ×4 (04:54→23:59)
[2016-11-16] MEDS: AZTREONAM INJ 1,000 MG in SODIUM CHLORIDE 0.9% INJ 100 ML IV SCH ×3 (08:35→23:59)
[2016-11-16] MEDS: ASPIRIN 81 MG CHEW TAB CHEW SCH (08:36)
[2016-11-16] MEDS: AMIODARONE 200 MG TAB PO SCH (08:36)
--- NOTE | 2016-11-16 16:20 | HHI.CCPN ---
Subjective Remarks/Hospital Course This is a 60yF with h/o DM, htn, atrial fibrillation and prior transmetatarsal amputation of right foot (podiatry Dr. Spaulding) in 10/2016 for osteomyelitis. She was on outpatient therapy with vancomycin and levaquin through existing RUE PICC line. She presents to the ED with complaints of weakness and right foot pain over the last 2-3 days. She was hypotensive in the emergency department which was only minimally responsive to 30 mL/kg ivf bolus. she was started on Levophed in the emergency department. In the ER, xray of the foot demonstrated gas in the soft tissues, concerning for recurrent, worsening osteomyelitis. When I evaluated the patient, she was somnolent but arousable. However, she was too somnolent to add any additional history and kept falling asleep on my exam. laboratory data is significant for wbc 9.3, hgb 7.9, cr 1.99, lactate 1.3, Trop 0.59. Critical care medicine is consulted to evaluate and manage septic shock in the setting of likely recurrent right foot osteomyelitis. 11/13: Patient remains on 3 mics of Levophed for septic shock. Worsening hypoxemic respiratory failure now on BiPAP. Review of previous records indicated that Dr. Cooper has initially recommended right below-knee amputation. Dr. Wheeler was asked to give a second opinion. Patient opted for a limb salvage attempt. ID last admission was Dr. Conner. Right foot x-ray showing probable osteomyelitis. Vascular surgery may need to be re-consulted for right BKA- await ID, podiatry input 11/14: Off all pressors. At this time remains off BiPAP. Patient is agreeable to R below-knee amputation at this time, she spoke to Dr. Cooper 11/15: Patient was seen after right below-knee amputation by Dr. Cooper. Breathing comfortably. Remains off pressors. SUBJECTIVE: 11/16: Afebrile. Remains on 8 L simple mask post extubation. Off vasopressors. Very poor appetite. Blood sugars remained in the 200s. Objective Vital Signs Date Time Temp Pulse Resp B/P Pulse Ox O2 Delivery O2 Flow Rate FiO2 11/16/16 14:00 94 11/16/16 12:00 98.6 18 154/85 93 11/16/16 08:00 Simple Mask 8.00 11/13/16 19:00 50 Intake and Output 11/15/16 11/15/16 11/16/16 08:00 16:00 00:00 Intake Total 243 ml 1570 ml 780 ml Output Total 250 ml 900 ml 350 ml Balance -7 ml 670 ml 430 ml Result Diagram: 11/16/16 0239 11/16/16 0239 Other Results Microbiology Date/Time Procedure Status Source Growth 11/12/16 16:20 Gram Stain - Final Complete Wound Foot 11/12/16 16:20 Wound Culture - Final Complete Enterococcus Faecium Vre 11/12/16 16:20 Aerobic Blood Culture - Preliminary Resulted Blood Peripheral NO GROWTH IN 4 DAYS 11/12/16 16:20 Anaerobic Blood Culture - Preliminary Resulted Blood Peripheral NO GROWTH IN 4 DAYS Imaging Last Impressions Chest X-Ray 11/15/16 0600 Signed Impressions: Service Date/Time: Tuesday, November 15, 2016 04:25 - CONCLUSION: No significant interval change. Poncho Suárez MD Foot X-Ray 11/12/16 0000 Signed Impressions: Service Date/Time: Saturday, November 12, 2016 15:39 - CONCLUSION: Extensive soft tissue defect/ulceration with soft tissue emphysema and findings concerning for osteomyelitis. Felix Murcia MD Objective Remarks GENERAL: 60-year-old female, critically ill currently resting in bed in no acute distress SKIN: Warm and dry. No rash. Status post right [id number] amputation covered an René bandage HEAD: Atraumatic. Normocephalic. EYES: Pupils equal and round about 2 mm bilaterally and reactive. No scleral icterus. No injection or drainage. ENT: No nasal bleeding or discharge. Mucous membranes pink and moist. NECK: Trachea midline. No JVD. CARDIOVASCULAR: Regular rate and rhythm. S1, S2. No S4. RESPIRATORY: Diminished breath sounds in bases bilaterally. Few crackles appreciated. Breath sounds equal bilaterally. GASTROINTESTINAL: Abdomen soft, non-tender, nondistended. I [place] bowel sounds are appreciated MUSCULOSKELETAL: Extremities with 1+ lower extremity edema. Right BKA. NEUROLOGICAL: Awake and alert. No obvious cranial nerve deficits. Motor grossly within normal limits. Five out of 5 muscle strength in the arms and legs. Normal speech. Urinary Catheter: Yes Assessment to: Continue [place] insert reason: Prolonged Immobilization Vascular Central Line Catheter: No Assessment to: Continue A/P Assessment and Plan Neuro/Psych: metabolic encephalopathy Depression Diabetic neuropathy /Anxiety -- Encephalopathy secondary to sepsis-now resolving -- hold Cymbalta 60 mg twice a day, gabapentin 300 mg every 6 hours and tizanidine 4 mg every 8 hours -- Pain control with morphine Resp: Acute hypoxemic respiratory failure Atelectasis History of COPD/asthma --Currently off BiPAP-use when necessary --Good Saturation on simple mask 8 L --DuoNeb every 4 hours scheduled and when necessary --Wean o2 by NC for goal spo2 > 92% Repeat chest x-ray in a.m. Singular 10 mg by mouth daily CV: Crazy status post CABG 2013 Peripheral vascular disease Septic shock-resolved Type II NSTEMI/demand ischemia h/o hypertension Atrial fibrillation - paroxysmal currently in normal sinus rhythm -- continue home amiodarone 200 mg by mouth daily -- Aspirin 81 mg daily -- hold antihypertensives/home medication metoprolol 12.5 twice a day and losartan 25 mg daily given sepsis hold Imdur 30 mg daily -- Troponins secondary to stress and demand ischemia combined with poor renal clearance. -- Cardiology consulted, for NSTEMI Dr. Russo -- ECHO- mild LVH. concentric hypertrophy. systolic function severely reduced. EF 25% to 30%. Right ventricle dilated/left atrium dilated Renal: Acute kidney injury - resolving -- likely secondary to sepsis -- york catheter -- strict i/o's --Monitor urine output and creatinine slowly normalizing Will give 1 dose of Bumex 2.5 mill grams IV 1 now FEN/GI: --Replaced electrolytes as clinically indicated -- ivf as above Currently on ADA diet. Protonix for GI prophylaxis Colace for bowel regimen Heme/ID Right foot osteomyelitis, cellulitis septic shock Leukocytosis Normocytic anemia -- s/p right BKA by Dr. Wakefield 11/15/16 -- ABX- Daptomycin, Aztreonam, Flagyl. -- ID Dr. Conner -- has prior grown PSAE and MRSA in wound. Cuture this time from wound VRE. Pertinent cultures 11/12 - blood cultures 2 - no growth 11/12 - wound - VRE Endocrine: diabetes mellitus2 hyperglycemia of critical illness -- ssi, med, q6h. 21 units sliding scale past 24 hours. Start Levemir 5 twice a day Holding home medication Novulin 70/30 30 units twice a day and insulin R sliding -scale RheumMSK: History of SLE No current therapy Holding alendronate 70 mg daily for osteoporosis Prophyalxis: -- SQH, SCDs, protonix iv. Lines: -- Midline line remains for now and right upper extremity. -- [place] Critical Care: The total critical care time was 38 minutes. Time to perform other separately billable procedures was not included in the critical care time. Mayo Becker MD Nov 16, 2016 16:20
[2016-11-16] MEDS: DAPTOmycin INJ 650 MG in SODIUM CHLORIDE 0.9% INJ 100 ML IV SCH (16:28)
[2016-11-16] MEDS ORDERED: BUMETANIDE INJ 1 MG/4 ML VIAL IV PUSH ONE (16:45)
--- NOTE | 2016-11-16 18:03 | MP ---
cc: MD CRISTINA,CHANTALE DATE OF SURGERY 11/15/16 PREOPERATIVE DIAGNOSIS Gangrene of the right foot, peripheral vascular disease, coronary artery disease and COPD. POSTOPERATIVE DIAGNOSIS Gangrene of the right foot, peripheral vascular disease, coronary artery disease and COPD. PROCEDURE Right below-knee amputation. SURGEON MD Cristina ANESTHESIA General. BLOOD LOSS 100 cc. PROCEDURE IN DETAIL The patient prepped and draped in the usual fashion. The outline of the incision is made on the skin with a 2-0 silk string and then incision made anteriorly with a 10 blade, extended downward laterally into the posterior flap. The incision is deepened with the cautery down to the tibia and then to the fibula. The anterior tibial artery is divided and ligated with 0 Vicryl stick ties. ___ tissue is divided. The periosteum was elevated from the tibia to about an inch and a half above the level of the incision and same is done with the fibula, both are now transected with oscillating saw and then posterior flap is created with amputation knife and specimen removed. Meticulous hemostasis now obtained of the bleeding vessels of the trifurcation with 0 Vicryls [id number]. The stump is now washed with heparinized saline and further meticulous hemostasis obtained with cautery. Anterior tibial nerve is allowed to retract. The flap is now turned upward, tailored and then the incision closed using 0 Vicryl deep fascia to deep fascia, superficial fascia to superficial fascia, interrupted stitches. Skin was closed with 2-0 Prolene interrupted stitches. Dressing applied. The patient tolerated the procedure well. Chantale Wakefield SJ/EO /3:08 PM /5:47 PM
--- NOTE | 2016-11-16 19:17 | PD.CAR.PN ---
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 I saw the patient in October 2016 and recommended below knee amputation. At this point, we have exhausted all other salvage options and the patient is recovering from a septic episode. Will take for R BKA in next 24 to 48h when well resuscitated and stable J 11/14/16 Patient with R foot gangrene at transection site with exposed tarsal bones Dr. Wheeler's opinion greatly appreciated Patient was yesterday unwilling to commit to surgery and wanted to wait another day or two. I explained to the patient that she will only get sicker and that the gangrene is now causing systemic symptoms and decline. Today, after speaking to me, the patient agrees to amputation tomorrow Scheduled for BKA in am. 11/16/2016 Status post right below-knee amputation Patient has been extubated and is stable Dressing is dry and I'll keep the original dressing on until Friday and then remove it and change it Nothing to add at this time Patient might need a unit of blood at some point for her hemoglobin is 7.6 g/dL but I will leave this up to the intensive care team Objective: Vital Signs Date Time Temp Pulse Resp B/P Pulse Ox O2 Delivery O2 Flow Rate FiO2 11/16/16 18:00 94 11/16/16 16:00 98.7 94 18 154/84 93 11/16/16 16:00 94 11/16/16 14:00 94 11/16/16 12:00 106 11/16/16 12:00 98.6 102 18 154/85 93 11/16/16 10:00 106 11/16/16 08:00 98.6 99 15 150/78 93 11/16/16 08:00 96 Simple Mask 8.00 11/16/16 08:00 106 11/16/16 07:00 98 Simple Mask 8.00 11/16/16 06:00 106 11/16/16 04:00 99 11/16/16 04:00 98.9 99 15 147/79 93 11/16/16 02:00 101 11/16/16 00:00 104 11/16/16 00:00 98.6 104 16 142/76 95 11/15/16 22:00 100 11/15/16 20:00 104 11/15/16 20:00 97.9 104 23 142/76 95 11/15/16 19:54 95 Simple Mask 8.00 Result Diagram: 11/16/16 0239 11/16/16 0239 (1) Diabetic foot infection (2) Osteomyelitis of right foot (3) Demand ischemia (4) Septic shock (5) DM (diabetes mellitus) (6) HTN (hypertension) (7) CAD (coronary artery disease) Problem Qualifiers (1) Osteomyelitis of right foot: Qualified Code: M86.9 - Osteomyelitis of right foot, unspecified type Chantale Wakefield MD Nov 16, 2016 19:17
[2016-11-16] MEDS ORDERED: PHARMACY ORDERED LAB ONE (19:45)
[2016-11-16] MEDS ORDERED: VANCOMYCIN INJ 1,250 MG in SODIUM CHLOR 0.9% 250 ML INJ 250 ML IV SCH (20:00)
[2016-11-16] MEDS: PANTOPRAZOLE SODIUM 40 MG VIAL IV PUSH SCH (20:12)
[2016-11-16] MEDS: DOCUSATE SODIUM 100 MG CAP PO SCH (20:14)
[2016-11-16] MEDS: MONTELUKAST SODIUM 10 MG TAB PO SCH (20:14)
[2016-11-16] MEDS: BUDESONIDE-FORMOTEROL 160/4.5 MCG INHALER INH SCH (20:14)
[2016-11-16] MEDS: INSULIN DETEMIR 100 UNITS/ML VIAL SQ SCH (20:14)
[2016-11-17] VITALS (13 sets, daily range): BP systolic 151–157; BP diastolic 77–97; PULSE 91–106; RESP 22–26; TEMP 97.9–98.8; O2SAT 94–98
[2016-11-17] MEDS: MORPHINE SULFATE 4 MG/ML INJ IV PUSH PRN ×7 (02:52→21:50)
[2016-11-17] MEDS: RESP: ALBUTEROL 2.5 MG/IPRATROPIUM 0.5 MG NEB (SCH) NEB ×6 (03:45→23:10)
[2016-11-17] MEDS: CHLORHEXIDINE GLUCONATE 2 % 1 PACK (2 CLOTHS)(taper/protocol) TOPICAL SCH (04:00)
[2016-11-17 04:03] LABS: BICARBONATE 23.5 MEQ/L (21.0-32.0); MAGNESIUM 1.9 MG/DL (1.5-2.5); POTASSIUM 4.2 MEQ/L (3.5-5.1)
[2016-11-17 04:07] LABS: AUTOMATED NEUTROPHIL # 14.4 TH/MM3 (1.8-7.7); BASOPHIL # 0.1 TH/MM3 (0-0.2); BASOPHIL % 0.6 % (0.0-2.0); LYMPH % 3.9 % (9.0-44.0); LYMPHOCYTE # 0.6 TH/MM3 (1.0-4.8); MEAN CORPUSCULAR HEMOGLOBIN 27.4 PG (27.0-34.0); MEAN CORPUSCULAR HGB CONC 32.2 % (32.0-36.0); MONO % 3.2 % (0.0-8.0); NEUT % 92.3 % (16.0-70.0); PLATELET COUNT 223 TH/MM3 (150-450); RED BLOOD COUNT 2.94 MIL/MM3 (4.00-5.30); WHITE BLOOD COUNT 15.6 TH/MM3 (4.0-11.0)
[2016-11-17 04:11] LABS: HEMO FLAGS AUTO DIFF
[2016-11-17 04:24] LABS: CALCIUM-PROTEIN CORRECTED 7.5 MG/DL (8.5-10.1)
[2016-11-17] MEDS: methylPREDNISolone SOD SUCC 125 MG/2 ML VIAL IV PUSH SCH (05:10)
[2016-11-17] MEDS: INSULIN NovoLIN REGULAR SUPPLEMENTAL SCALE SQ SCH ×2 (05:11→12:00)
[2016-11-17] MEDS: HEPARIN SODIUM - SQ 10,000 UNITS/ML VIAL SQ SCH ×3 (05:11→21:49)
[2016-11-17] MEDS: DOCUSATE SODIUM 100 MG CAP PO SCH ×2 (07:57→19:43)
[2016-11-17] MEDS: metroNIDAZOLE 500 MG INJ 100 ML IV SCH ×2 (07:57→16:08)
[2016-11-17] MEDS: AZTREONAM INJ 1,000 MG in SODIUM CHLORIDE 0.9% INJ 100 ML IV SCH ×2 (07:57→16:08)
[2016-11-17] MEDS: INSULIN DETEMIR 100 UNITS/ML VIAL SQ SCH ×3 (07:58→19:43)
[2016-11-17] MEDS: ASPIRIN 81 MG CHEW TAB CHEW SCH (07:58)
[2016-11-17] MEDS: AMIODARONE 200 MG TAB PO SCH (07:58)
[2016-11-17 08:46] LABS: BANDS 2 % (0-6); CORRECTED NUCLEATED RBC 2 /100 WBC (0-0); NEUTROPHIL # MANUAL DIFF 14.8 TH/MM3 (1.8-7.7); PLATELET ESTIMATE SMEAR NORMAL (NORMAL); PLATELET MORPHOLOGY NORMAL (NORMAL); POLYS (SEG NEUTROPHILS) 93 % (16-70); SCAN/DIFF FINAL DIFF MANUAL; WBC DIFF SAMPLE 100
--- NOTE | 2016-11-17 08:53 | HHI.CCPN ---
Subjective Remarks/Hospital Course This is a 60yF with h/o DM, htn, atrial fibrillation and prior transmetatarsal amputation of right foot (podiatry Dr. Spaulding) in 10/2016 for osteomyelitis. She was on outpatient therapy with vancomycin and levaquin through existing RUE PICC line. She presents to the ED with complaints of weakness and right foot pain over the last 2-3 days. She was hypotensive in the emergency department which was only minimally responsive to 30 mL/kg ivf bolus. she was started on Levophed in the emergency department. In the ER, xray of the foot demonstrated gas in the soft tissues, concerning for recurrent, worsening osteomyelitis. When I evaluated the patient, she was somnolent but arousable. However, she was too somnolent to add any additional history and kept falling asleep on my exam. laboratory data is significant for wbc 9.3, hgb 7.9, cr 1.99, lactate 1.3, Trop 0.59. Critical care medicine is consulted to evaluate and manage septic shock in the setting of likely recurrent right foot osteomyelitis. 11/13: Patient remains on 3 mics of Levophed for septic shock. Worsening hypoxemic respiratory failure now on BiPAP. Review of previous records indicated that Dr. Cooper has initially recommended right below-knee amputation. Dr. Wheeler was asked to give a second opinion. Patient opted for a limb salvage attempt. ID last admission was Dr. Conner. Right foot x-ray showing probable osteomyelitis. Vascular surgery may need to be re-consulted for right BKA- await ID, podiatry input 11/14: Off all pressors. At this time remains off BiPAP. Patient is agreeable to R below-knee amputation at this time, she spoke to Dr. Cooper 11/15: Patient was seen after right below-knee amputation by Dr. Cooper. Breathing comfortably. Remains off pressors. 11/16: Afebrile. Remains on 8 L simple mask post extubation. Off vasopressors. Very poor appetite. Blood sugars remained in the 200s. SUBJECTIVE: 11/17: Afebrile. On 7 L supplemental mask currently. Off vasopressors. Blood sugars in the 300s currently. Noted dressing changes by vascular surgery on Friday plan. Objective Vital Signs Date Time Temp Pulse Resp B/P Pulse Ox O2 Delivery O2 Flow Rate FiO2 11/17/16 07:28 97 Simple Mask 7.00 11/17/16 06:00 103 11/17/16 04:00 26 157/97 11/17/16 00:00 98.4 11/13/16 19:00 50 Intake and Output 11/16/16 11/16/16 11/17/16 08:00 16:00 00:00 Intake Total 720 ml 1590 ml 746 ml Output Total 350 ml 450 ml 1850 ml Balance 370 ml 1140 ml -1104 ml Result Diagram: 11/17/16 0310 11/17/16 0310 Other Results Microbiology Date/Time Procedure Status Source Growth 11/12/16 16:20 Gram Stain - Final Complete Wound Foot 11/12/16 16:20 Wound Culture - Final Complete Enterococcus Faecium Vre 11/12/16 16:20 Aerobic Blood Culture - Preliminary Resulted Blood Peripheral NO GROWTH IN 4 DAYS 11/12/16 16:20 Anaerobic Blood Culture - Preliminary Resulted Blood Peripheral NO GROWTH IN 4 DAYS Imaging Last Impressions Chest X-Ray 11/15/16 0600 Signed Impressions: Service Date/Time: Tuesday, November 15, 2016 04:25 - CONCLUSION: No significant interval change. Poncho Suárez MD Foot X-Ray 11/12/16 0000 Signed Impressions: Service Date/Time: Saturday, November 12, 2016 15:39 - CONCLUSION: Extensive soft tissue defect/ulceration with soft tissue emphysema and findings concerning for osteomyelitis. Felix Murcia MD Objective Remarks GENERAL: 60-year-old female, critically ill currently resting in bed in no acute distress SKIN: Warm and dry. No rash. Status post right [id number] amputation covered an René bandage HEAD: Atraumatic. Normocephalic. EYES: Pupils equal and round about 2 mm bilaterally and reactive. No scleral icterus. No injection or drainage. ENT: No nasal bleeding or discharge. Mucous membranes pink and moist. NECK: Trachea midline. No JVD. CARDIOVASCULAR: Regular rate and rhythm. S1, S2. No S4. RESPIRATORY: Diminished breath sounds in bases bilaterally. Few crackles appreciated. Breath sounds equal bilaterally. GASTROINTESTINAL: Abdomen soft, non-tender, nondistended. I [place] bowel sounds are appreciated MUSCULOSKELETAL: Extremities with 1+ lower extremity edema. Right BKA. NEUROLOGICAL: Awake and alert. No obvious cranial nerve deficits. Motor grossly within normal limits. Five out of 5 muscle strength in the arms and legs. Normal speech. A/P Assessment and Plan Neuro/Psych: metabolic encephalopathy Depression Diabetic neuropathy /Anxiety -- Encephalopathy secondary to sepsis-now resolving -- hold Cymbalta 60 mg twice a day, gabapentin 300 mg every 6 hours and tizanidine 4 mg every 8 hours. Resume when clinically indicated -- Pain control with morphine Resp: Acute hypoxemic respiratory failure Atelectasis History of COPD/asthma --Currently off BiPAP-use when necessary --Good Saturation on simple mask 7 L. Wean as tolerated to maintain saturations greater than equal to 90% --DuoNeb every 4 hours scheduled and when necessary albuterol nebs every 2 hours Repeat chest x-ray today Singular 10 mg by mouth daily CV: Crazy status post CABG 2013 Peripheral vascular disease Septic shock-resolved Type II NSTEMI/demand ischemia h/o hypertension Atrial fibrillation - paroxysmal currently in normal sinus rhythm -- continue home amiodarone 200 mg by mouth daily -- Aspirin 81 mg daily -- hold antihypertensives/home medication metoprolol 12.5 twice a day and losartan 25 mg daily given sepsis hold Imdur 30 mg daily -- Troponins last one 0.20 secondary to stress and demand ischemia combined with poor renal clearance. -- Cardiology consulted, for NSTEMI Dr. Russo -- ECHO- mild LVH. concentric hypertrophy. systolic function severely reduced. EF 25% to 30%. Right ventricle dilated/left atrium dilated Renal: Acute kidney injury - resolving -- likely secondary to sepsis -- york catheter -- strict i/o's --Monitor urine output and creatinine slowly normalizing Will give 1 dose of Bumex 2.5 mill grams IV 1 yesterday with good results FEN/GI: --Replaced electrolytes as clinically indicated -- ivf as above Currently on ADA diet. Protonix for GI prophylaxis Colace for bowel regimen Heme/ID Right foot osteomyelitis, cellulitis septic shock Leukocytosis Normocytic anemia -- s/p right BKA by Dr. Wakefield 11/15/16 -- ABX- Daptomycin, Aztreonam, Flagyl. -- ID Dr. Conner -- has prior grown PSAE and MRSA in wound. 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 Pertinent cultures 11/12 - blood cultures 2 - no growth 11/12 - wound - VRE Endocrine: diabetes mellitus2 hyperglycemia of critical illness -- ssi, med, q6h. 38 units sliding scale past 24 hours. Start Levemir 15 twice a day Holding home medication Novulin 70/30 30 units twice a day and insulin R sliding -scale RheumMSK: History of SLE No current therapy Holding alendronate 70 mg daily for osteoporosis Prophyalxis: -- SQH, SCDs, protonix iv. Lines: -- Midline line remains for now and right upper extremity. -- [place] Critical Care: The total critical care time was 37 minutes. Time to perform other separately billable procedures was not included in the critical care time. Mayo Becker MD Nov 17, 2016 08:53
[2016-11-17] MEDS ORDERED: CALCIUM GLUCONATE INJ 1 GM in SODIUM CHLORIDE 0.9% INJ 100 ML IV ONE (10:00)
--- NOTE | 2016-11-17 10:14 | RADRPT ---
EXAM DATE/TIME: 11/17/2016 09:20 [facility] COMPARISON: CHEST SINGLE AP, November 15, 2016, 4:25. INDICATIONS : Shortness of breath. MEDICAL HISTORY : Hyperthyroidism. SURGICAL HISTORY : Mastectomy, bilateral. ENCOUNTER: Subsequent ACUITY: 1 week PAIN SCORE: Non-responsive. LOCATION: Bilateral chest FINDINGS: There is evidence for prior median sternotomy. Heart and mediastinum are unremarkable for technique. Right subclavian PICC line is present with tip overlapping the expected region of the SVC. There is n o significant change in bilateral mainly interstitial process in the lungs. CONCLUSION: No appreciable change. Christopher Chambers MD on November 17, 2016 at 10:11 Board Certified Radiologist. This report was verified electronically.
[2016-11-17] MEDS: oxyCODONE/ACETAMINOPHEN 10 MG/325 MG TAB PO PRN (11:00)
[2016-11-17] MEDS: methylPREDNISolone SOD SUCC 40 MG/1 ML VIAL IV SCH ×2 (14:00→21:58)
[2016-11-17] MEDS: DAPTOmycin INJ 650 MG in SODIUM CHLORIDE 0.9% INJ 100 ML IV SCH (14:00)
[2016-11-17] MEDS: POTASSIUM PHOSPHATE/SODIUM PHOSPHATE 250 MG TAB PO SCH ×2 (16:07→21:50)
[2016-11-17] MEDS: MONTELUKAST SODIUM 10 MG TAB PO SCH (19:43)
[2016-11-17] MEDS: BUDESONIDE-FORMOTEROL 160/4.5 MCG INHALER INH SCH (19:44)
[2016-11-17] MEDS: PANTOPRAZOLE SODIUM 40 MG VIAL IV PUSH SCH (21:49)
[2016-11-18] VITALS (7 sets, daily range): BP systolic 146–159; BP diastolic 81–86; PULSE 89–99; RESP 15–23; TEMP 97.8–97.9; O2SAT 91–94
[2016-11-18] MEDS: metroNIDAZOLE 500 MG INJ 100 ML IV SCH ×2 (00:05→08:23)
[2016-11-18] MEDS: INSULIN NovoLIN REGULAR SUPPLEMENTAL SCALE SQ SCH ×5 (00:05→23:19)
[2016-11-18] MEDS: AZTREONAM INJ 1,000 MG in SODIUM CHLORIDE 0.9% INJ 100 ML IV SCH ×2 (00:06→08:24)
[2016-11-18] MEDS: MORPHINE SULFATE 4 MG/ML INJ IV PUSH PRN ×10 (00:07→23:20)
[2016-11-18] MEDS: RESP: ALBUTEROL 2.5 MG/IPRATROPIUM 0.5 MG NEB (SCH) NEB ×5 (03:34→20:30)
[2016-11-18] MEDS: HEPARIN SODIUM - SQ 10,000 UNITS/ML VIAL SQ SCH ×3 (04:46→20:40)
[2016-11-18] MEDS: POTASSIUM PHOSPHATE/SODIUM PHOSPHATE 250 MG TAB PO SCH (04:46)
[2016-11-18] MEDS: methylPREDNISolone SOD SUCC 40 MG/1 ML VIAL IV SCH ×3 (04:46→20:38)
[2016-11-18 06:14] LABS: MEAN CELL VOLUME 84.1 FL (80.0-100.0); MEAN CORPUSCULAR HEMOGLOBIN 26.2 PG (27.0-34.0); MEAN CORPUSCULAR HGB CONC 31.1 % (32.0-36.0); PLATELET COUNT 186 TH/MM3 (150-450); RED BLOOD COUNT 3.21 MIL/MM3 (4.00-5.30); WHITE BLOOD COUNT 20.5 TH/MM3 (4.0-11.0)
[2016-11-18 06:27] LABS: REVIEW FLAG FINAL
[2016-11-18 06:30] LABS: BICARBONATE 27.3 MEQ/L (21.0-32.0); POTASSIUM 3.9 MEQ/L (3.5-5.1)
[2016-11-18 06:42] LABS: CALCIUM-PROTEIN CORRECTED 7.5 MG/DL (8.5-10.1)
[2016-11-18] MEDS: AMIODARONE 200 MG TAB PO SCH (08:22)
[2016-11-18] MEDS: DOCUSATE SODIUM 100 MG CAP PO SCH ×2 (08:22→20:39)
[2016-11-18] MEDS: BUDESONIDE-FORMOTEROL 160/4.5 MCG INHALER INH SCH ×2 (08:22→20:39)
[2016-11-18] MEDS: ASPIRIN 81 MG CHEW TAB CHEW SCH (08:23)
[2016-11-18] MEDS: INSULIN DETEMIR 100 UNITS/ML VIAL SQ SCH ×2 (08:24→20:39)
[2016-11-18] MEDS ORDERED: BUMETANIDE INJ 1 MG/4 ML VIAL IV PUSH ONE (11:00)
--- NOTE | 2016-11-18 11:00 | HHI.CCPN ---
Subjective Remarks/Hospital Course This is a 60yF with h/o DM, htn, atrial fibrillation and prior transmetatarsal amputation of right foot (podiatry Dr. Spaulding) in 10/2016 for osteomyelitis. She was on outpatient therapy with vancomycin and levaquin through existing RUE PICC line. She presents to the ED with complaints of weakness and right foot pain over the last 2-3 days. She was hypotensive in the emergency department which was only minimally responsive to 30 mL/kg ivf bolus. she was started on Levophed in the emergency department. In the ER, xray of the foot demonstrated gas in the soft tissues, concerning for recurrent, worsening osteomyelitis. When I evaluated the patient, she was somnolent but arousable. However, she was too somnolent to add any additional history and kept falling asleep on my exam. laboratory data is significant for wbc 9.3, hgb 7.9, cr 1.99, lactate 1.3, Trop 0.59. Critical care medicine is consulted to evaluate and manage septic shock in the setting of likely recurrent right foot osteomyelitis. 11/13: Patient remains on 3 mics of Levophed for septic shock. Worsening hypoxemic respiratory failure now on BiPAP. Review of previous records indicated that Dr. Cooper has initially recommended right below-knee amputation. Dr. Wheeler was asked to give a second opinion. Patient opted for a limb salvage attempt. ID last admission was Dr. Conner. Right foot x-ray showing probable osteomyelitis. Vascular surgery may need to be re-consulted for right BKA- await ID, podiatry input 11/14: Off all pressors. At this time remains off BiPAP. Patient is agreeable to R below-knee amputation at this time, she spoke to Dr. Cooper 11/15: Patient was seen after right below-knee amputation by Dr. Cooper. Breathing comfortably. Remains off pressors. 11/16: Afebrile. Remains on 8 L simple mask post extubation. Off vasopressors. Very poor appetite. Blood sugars remained in the 200s. 11/17: Afebrile. On 7 L supplemental mask currently. Off vasopressors. Blood sugars in the 300s currently. Noted dressing changes by vascular surgery on Friday plan. SUBJECTIVE: 11/18: Resting comfortable in bed. Currently nasal cannula. Denies complaint. Denies chest pain. Did not use BiPAP overnight. Objective Vital Signs Date Time Temp Pulse Resp B/P Pulse Ox O2 Delivery O2 Flow Rate FiO2 11/18/16 10:06 91 Nasal Cannula 6.00 11/18/16 06:00 96 11/18/16 04:00 97.9 22 159/86 Intake and Output 11/17/16 11/17/16 11/18/16 08:00 16:00 00:00 Intake Total 970 ml 2050 ml 1020 ml Output Total 800 ml 850 ml 550 ml Balance 170 ml 1200 ml 470 ml Result Diagram: 11/18/16 0452 11/18/16 0452 Imaging Last Impressions Chest X-Ray 11/17/16 0000 Signed Impressions: Service Date/Time: Thursday, November 17, 2016 09:20 - CONCLUSION: No appreciable change. Christopher Chambers MD Foot X-Ray 11/12/16 0000 Signed Impressions: Service Date/Time: Saturday, November 12, 2016 15:39 - CONCLUSION: Extensive soft tissue defect/ulceration with soft tissue emphysema and findings concerning for osteomyelitis. Felix Murcia MD Objective Remarks GENERAL: 60-year-old female, critically ill currently resting in bed in no acute distress SKIN: Warm and dry. No rash. Status post right [id number] amputation covered an René bandage HEAD: Atraumatic. Normocephalic. EYES: Pupils equal and round about 2 mm bilaterally and reactive. No scleral icterus. No injection or drainage. ENT: No nasal bleeding or discharge. Mucous membranes pink and moist. NECK: Trachea midline. No JVD. CARDIOVASCULAR: Regular rate and rhythm. S1, S2. No S4. RESPIRATORY: Diminished breath sounds in bases bilaterally. Few crackles appreciated. Breath sounds equal bilaterally. GASTROINTESTINAL: Abdomen soft, non-tender, nondistended. Hypoactive bowel sounds are appreciated MUSCULOSKELETAL: Extremities with 1+ lower extremity edema. Right BKA. NEUROLOGICAL: Awake and alert. No obvious cranial nerve deficits. Motor grossly within normal limits. Five out of 5 muscle strength in the arms and legs. Normal speech. A/P Assessment and Plan Neuro/Psych: metabolic encephalopathy Depression Diabetic neuropathy /Anxiety -- Encephalopathy secondary to sepsis-now resolving -- hold Cymbalta 60 mg twice a day, gabapentin 300 mg every 6 hours and tizanidine 4 mg every 8 hours. Resume when clinically indicated -- Pain control with morphine Resp: Acute hypoxemic respiratory failure Atelectasis History of COPD/asthma --Currently off BiPAP-use when necessary --Good Saturation on nasal cannula 6 L. Wean as tolerated to maintain saturations greater than equal to 90% --DuoNeb every 4 hours scheduled and when necessary albuterol nebs every 2 hours Repeat chest x-ray 11/17 revealed stable cardiomegaly findings Singular 10 mg by mouth daily CV: Crazy status post CABG 2013 Peripheral vascular disease Septic shock-resolved Type II NSTEMI/demand ischemia h/o hypertension Atrial fibrillation - paroxysmal currently in normal sinus rhythm -- continue home amiodarone 200 mg by mouth daily -- Aspirin 81 mg daily -- hold antihypertensives/home medication metoprolol 12.5 twice a day and losartan 25 mg daily given sepsis hold Imdur 30 mg daily -- Troponins last one 0.20 secondary to stress and demand ischemia combined with poor renal clearance. -- Cardiology consulted, for NSTEMI Dr. Russo -- ECHO- mild LVH. concentric hypertrophy. systolic function severely reduced. EF 25% to 30%. Right ventricle dilated/left atrium dilated Renal: Acute kidney injury - resolving -- likely secondary to sepsis -- [place] catheter -- strict i/o's --Monitor urine output and creatinine slowly normalizing Will give 1 dose of Bumex 1 mill grams IV 1 today FEN/GI: --Replaced electrolytes as clinically indicated Currently on ADA diet. Protonix for GI prophylaxis Colace for bowel regimen Heme/ID Right foot osteomyelitis, cellulitis septic shock Leukocytosis Normocytic anemia -- s/p right BKA by Dr. Wakefield 11/15/16 -- ABX- Daptomycin, Aztreonam, Flagyl. -- ID Dr. Conner -- has prior grown PSAE and MRSA in wound. 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 Pertinent cultures 11/12 - blood cultures 2 - no growth 11/12 - wound - VRE Endocrine: diabetes mellitus2 hyperglycemia of critical illness -- ssi, med, q6h. 36 units sliding scale past 24 hours. Increase Levemir 22 twice a day Holding home medication Novulin 70/30 30 units twice a day and insulin R sliding -scale RheumMSK: History of SLE No current therapy Holding alendronate 70 mg daily for osteoporosis Prophyalxis: -- SQH, SCDs, protonix iv. Lines: -- Midline line remains for now and right upper extremity. -- [place] Critical Care: The total critical care time was 35 minutes. Time to perform other separately billable procedures was not included in the critical care time. Mayo Becker MD Nov 18, 2016 11:00
--- NOTE | 2016-11-18 12:09 | PD.CARD.PN ---
Subjective Subjective Remarks No chest pain, decreased shortness of breath Right lower extremity pain Objective Medications Current Medications Medications (Trade) Dose Ordered Sig/Seng Route Start Time Stop Time Status Last Admin (D50w (Vial) Inj) 25 ml UNSCH PRN IV PUSH 11/12/16 17:30 (NovoLIN R SUPPLEMENTAL SCALE) 1 Q6HR SQ 11/12/16 18:00 11/18/16 04:46 Magnesium Oxide 800 mg 800 mg UNSCH PRN PO 11/12/16 17:30 Magnesium Sulfate 4 gm/Sodium Chloride 100 ml @ 50 mls/hr UNSCH PRN IV 11/12/16 17:30 Magnesium Sulfate 2 gm/Sodium Chloride 100 ml @ 50 mls/hr UNSCH PRN IV 11/12/16 17:30 Potassium Chloride 100 ml @ 50 mls/hr Q2H PRN IV 11/12/16 17:30 Potassium Chloride 100 ml @ 50 mls/hr Q2H PRN IV 11/12/16 17:30 Potassium Chloride 100 ml @ 50 mls/hr Q2H PRN IV 11/12/16 17:30 (KCl 40 Meq Premix Inj) 100 ml @ 25 mls/hr UNSCH PRN IV 11/12/16 17:30 (K-Phos) 2,000 mg Q4H PRN PO 11/12/16 17:30 Potassium Phosphate 2000 mg 2,000 mg UNSCH PRN PO/TUBE 11/12/16 17:30 Potassium Phosphate 30 mmol/ Sodium Chloride 260 ml @ 42 mls/hr UNSCH PRN IV 11/12/16 17:30 Sodium Phosphate 30 mmol/Sodium Chloride 250 ml @ 42 mls/hr UNSCH PRN IV 11/12/16 17:30 11/17/16 06:41 (Azactam Inj/NS Inj) 100 ml @ 200 mls/hr Q8H IV 11/13/16 01:00 11/18/16 08:24 (Heparin Inj) 5,000 units Q8HR SQ 11/12/16 22:00 11/18/16 04:46 (Protonix Inj) 40 mg Q24H IV PUSH 11/12/16 22:00 11/17/16 21:49 (Cordarone) 200 mg DAILY PO 11/13/16 09:00 11/18/16 08:22 (Percocet 10-325 Mg) 1 tab Q6H PRN PO 11/12/16 22:45 11/17/16 11:00 (Morphine Inj) 2 mg Q2H PRN IV PUSH 11/12/16 22:45 11/17/16 10:59 (Morphine Inj) 4 mg Q2H PRN IV PUSH 11/12/16 22:45 11/18/16 09:07 (Zofran Inj) 4 mg Q6HR PRN IV PUSH 11/12/16 22:45 11/14/16 15:20 Miscellaneous Information Patient in critical care unit? Ass... [id number] .XX 11/12/16 22:45 Aspirin 81 mg 81 mg DAILY CHEW 11/13/16 09:00 11/18/16 08:23 Daptomycin 650 mg/ Sodium Chloride 100 ml @ 200 mls/hr Q24H IV 11/14/16 14:00 11/17/16 14:00 (Flagyl 500 Mg Inj) 100 ml @ 100 mls/hr Q8H IV 11/14/16 17:00 11/18/16 08:23 (Colace) 100 mg BID PO 11/16/16 21:00 11/18/16 08:22 (Singulair) 10 mg HS PO 11/16/16 21:00 11/17/16 19:43 (Symbicort 160-4.5 Inh) 2 puff Q12HR INH 11/16/16 21:00 11/18/16 08:22 (SoluMEDROL INJ) 40 mg Q8HR IV 11/17/16 14:00 11/18/16 04:46 (Levemir Inj) 22 units Q12HR SQ 11/18/16 21:00 Vital Signs / I&O Vital Signs Date Time Temp Pulse Resp B/P Pulse Ox O2 Delivery O2 Flow Rate FiO2 11/18/16 10:06 91 Nasal Cannula 6.00 11/18/16 08:03 96 Nasal Cannula 5.00 11/18/16 06:00 96 11/18/16 04:00 99 11/18/16 04:00 97.9 99 22 159/86 91 11/18/16 02:00 95 11/18/16 00:00 97.9 99 23 155/81 93 11/18/16 00:00 99 11/17/16 22:00 101 11/17/16 20:00 97.9 94 24 152/77 96 11/17/16 20:00 91 11/17/16 19:22 97 Nasal Cannula 6.00 11/17/16 19:00 96 Simple Mask 5.00 11/17/16 18:01 103 11/17/16 16:00 98.6 99 22 151/86 94 11/17/16 16:00 103 I/O 11/17/16 11/17/16 11/17/16 11/18/16 11/18/16 11/18/16 07:00 15:00 23:00 07:00 15:00 23:00 Intake Total 970 ml 2050 ml 1020 ml 710 ml Output Total 800 ml 850 ml 550 ml 500 ml Balance 170 ml 1200 ml 470 ml 210 ml Intake Oral 720 ml 1800 ml 480 ml 480 ml IV Total 250 ml 250 ml 540 ml 230 ml Output Urine Total 800 ml 850 ml 550 ml 500 ml Physical Exam GENERAL: NAD, AAOx3 SKIN: Warm and dry. HEAD: Atraumatic. Normocephalic. EYES: Pupils equal and round. No scleral icterus. No injection or drainage. ENT: No nasal bleeding or discharge. Mucous membranes pink and moist. NECK: Trachea midline. No JVD. CARDIOVASCULAR: Regular rate and rhythm. RESPIRATORY: No accessory muscle use. Decreased breath sounds bilaterally, rhonchi throughout GASTROINTESTINAL: Abdomen soft, non-tender, nondistended. Hepatic and splenic margins not palpable. MUSCULOSKELETAL: Right BKA in MAGAN bandage NEUROLOGICAL: Awake and alert. No obvious cranial nerve deficits. Motor grossly within normal limits. Five out of 5 muscle strength in the arms and legs. Normal speech. PSYCHIATRIC: Appropriate mood and affect; insight and judgment normal. Laboratory Laboratory Tests Test 11/18/16 04:52 White Blood Count 20.5 TH/MM3 Red Blood Count 3.21 MIL/MM3 Hemoglobin 8.4 GM/DL Hematocrit 27.0 % Mean Corpuscular Volume 84.1 FL Mean Corpuscular Hemoglobin 26.2 PG Mean Corpuscular Hemoglobin 31.1 % Concent Red Cell Distribution Width 18.0 % Platelet Count 186 TH/MM3 Mean Platelet Volume 7.8 FL Sodium Level 140 MEQ/L Potassium Level 3.9 MEQ/L Chloride Level 104 MEQ/L Carbon Dioxide Level 27.3 MEQ/L Anion Gap 9 MEQ/L Blood Urea Nitrogen 45 MG/DL Creatinine 0.97 MG/DL Estimat Glomerular Filtration 59 ML/MIN Rate Random Glucose 257 MG/DL Calcium Level 7.3 MG/DL Protein Corrected Calcium 7.5 MG/DL Phosphorus Level 2.8 MG/DL Magnesium Level 2.0 MG/DL Total Protein 6.7 GM/DL Assessment and Plan Problem List: (1) Diabetic foot infection (2) Osteomyelitis of right foot (3) Demand ischemia (4) Septic shock (5) DM (diabetes mellitus) (6) HTN (hypertension) (7) CAD (coronary artery disease) Assessment and Plan 1) Elevated troponin due to demand ischemia from septic shock 2) Con't with medical management 3) Post Right BKA, doing well 4) Will see PRN, call with questions Problem Qualifiers (1) Osteomyelitis of right foot: Qualified Code: M86.9 - Osteomyelitis of right foot, unspecified type Luciano Russo DO Nov 18, 2016 12:09
--- NOTE | 2016-11-18 14:30 | HHI.IDPN ---
Subjective Subjective Remarks ID COVERAGE 60 year old female admitted in septic shock Has been on Abx at home for foot infection Notes reviewed POD 2 s/p RBKA C/O pain Off pressors C/S with VRE Path pending. Antibiotics Azactam Flagyl Vancomycin Lines PICC Past Medical History Reviewed Allergies: Coded Allergies: Bactrim (Verified Allergy, Severe, Shortness of Breath, 11/12/16) Iodine (Verified Allergy, Severe, THROAT SWELLS, 11/12/16) pt states does not have a allergy to Iodine 01/11/16 JF Penicillin (Verified Allergy, Severe, STOPPED BREATHING, 11/12/16) Shellfish (Verified Allergy, Severe, THROAT SWELLS, 11/12/16) *MDRO Multi-Drug Resistant Organism (Verified Adverse Reaction, Unknown, ) 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 Objective . Vital Signs Date Time Temp Pulse Resp B/P Pulse Ox O2 Delivery O2 Flow Rate FiO2 11/18/16 10:06 91 Nasal Cannula 6.00 11/18/16 08:03 96 Nasal Cannula 5.00 11/18/16 06:00 96 11/18/16 04:00 99 11/18/16 04:00 97.9 99 22 159/86 91 11/18/16 02:00 95 11/18/16 00:00 97.9 99 23 155/81 93 11/18/16 00:00 99 11/17/16 22:00 101 11/17/16 20:00 97.9 94 24 152/77 96 11/17/16 20:00 91 11/17/16 19:22 97 Nasal Cannula 6.00 11/17/16 19:00 96 Simple Mask 5.00 11/17/16 18:01 103 11/17/16 16:00 98.6 99 22 151/86 94 11/17/16 16:00 103 11/17/16 11/17/16 11/18/16 15:00 23:00 07:00 Intake Total 2050 ml 1020 ml 710 ml Output Total 850 ml 550 ml 500 ml Balance 1200 ml 470 ml 210 ml Intake Oral 1800 ml 480 ml 480 ml IV Total 250 ml 540 ml 230 ml Output Urine Total 850 ml 550 ml 500 ml . Laboratory Tests Test 11/17/16 11/18/16 03:10 04:52 White Blood Count 15.6 TH/MM3 20.5 TH/MM3 Red Blood Count 2.94 MIL/MM3 3.21 MIL/MM3 Hemoglobin 8.1 GM/DL 8.4 GM/DL Hematocrit 25.0 % 27.0 % Mean Corpuscular Volume 85.0 FL 84.1 FL Mean Corpuscular Hemoglobin 27.4 PG 26.2 PG Mean Corpuscular Hemoglobin 32.2 % 31.1 % Concent Red Cell Distribution Width 18.0 % 18.0 % Platelet Count 223 TH/MM3 186 TH/MM3 Mean Platelet Volume 7.5 FL 7.8 FL Neutrophils (%) (Auto) 92.3 % Lymphocytes (%) (Auto) 3.9 % Monocytes (%) (Auto) 3.2 % Eosinophils (%) (Auto) 0.0 % Basophils (%) (Auto) 0.6 % Neutrophils # (Auto) 14.4 TH/MM3 Lymphocytes # (Auto) 0.6 TH/MM3 Monocytes # (Auto) 0.5 TH/MM3 Eosinophils # (Auto) 0.0 TH/MM3 Basophils # (Auto) 0.1 TH/MM3 CBC Comment AUTO DIFF Differential Total Cells 100 Counted Neutrophils % (Manual) 93 % Band Neutrophils % 2 % Lymphocytes % 4 % Monocytes % 1 % Neutrophils # (Manual) 14.8 TH/MM3 Nucleated Red Blood Cells 2 /100 WBC Differential Comment FINAL DIFF MANUAL Platelet Estimate NORMAL Platelet Morphology Comment NORMAL Basophilic Stippling FAINT Laboratory Tests Test 11/17/16 11/18/16 03:10 04:52 Sodium Level 139 MEQ/L 140 MEQ/L Potassium Level 4.2 MEQ/L 3.9 MEQ/L Chloride Level 103 MEQ/L 104 MEQ/L Carbon Dioxide Level 23.5 MEQ/L 27.3 MEQ/L Anion Gap 13 MEQ/L 9 MEQ/L Blood Urea Nitrogen 51 MG/DL 45 MG/DL Creatinine 1.16 MG/DL 0.97 MG/DL Estimat Glomerular Filtration 48 ML/MIN 59 ML/MIN Rate Random Glucose 307 MG/DL 257 MG/DL Calcium Level 7.2 MG/DL 7.3 MG/DL Protein Corrected Calcium 7.5 MG/DL 7.5 MG/DL Phosphorus Level 2.3 MG/DL 2.8 MG/DL Magnesium Level 1.9 MG/DL 2.0 MG/DL Total Protein 6.6 GM/DL 6.7 GM/DL Imaging Last Impressions Chest X-Ray 11/13/16 0000 Signed Impressions: Service Date/Time: Sunday, November 13, 2016 05:37 - CONCLUSION: Persistent bibasilar consolidation. Cardiomegaly and interstitial prominence. Jean Costa MD Foot X-Ray 11/12/16 0000 Signed Impressions: Service Date/Time: Saturday, November 12, 2016 15:39 - CONCLUSION: Extensive soft tissue defect/ulceration with soft tissue emphysema and findings concerning for osteomyelitis. Felix Murcia MD Physical Exam GENERAL: Awake and alert, looks dyspneic at rest, on FM SKIN: Cool and dry, no generalized rash Breast: sp b/l mastectomy with well healed scars HEENT: No scleral icterus. No injection or drainage. Nose without bleeding or purulent drainage. Moist mucosa NECK: Trachea midline. Supple, nontender. . CARDIOVASCULAR: Regular rate and rhythm without murmurs, gallops, or rubs. RESPIRATORY/CHEST: Coarse BS, rales at bases GASTROINTESTINAL: Abdomen soft globular, non-tender, mildly distended. No hepato -splenomegaly, or palpable masses. No guarding. Bowel sounds present. Stoma in place LLQ with a small amount of stool GENITOURINARY: Avendano catheter in place with clear yellow urine MUSCULOSKELETAL: RLE with post op dressing NEUROLOGICAL: Awake and alert. Follows commands. Normal speech Moves all extremities. PSYCHIATRIC: Calm and cooperative LINES: sites no evidence of infection Assessment & Plan Remarks IMPRESSION MRSA DFI, osteo R foot S/P Chopart in the settings of PVD - failed amputation Severe unreconstructable PVD Respiratory failure due to CHF Hypotension, suspected septic shock Multiple med prob including COPD, CHF HIgh grade PCN allergy (anaphylaxis) PLAN Continue Cubicin for VRE. Possibly can be discontinued in next day or so depending on clinical follow up exams and WBC trend. DC Azactam DC Flagyl Increase in WBC likely post op. Follow trend and clinically. Follow C/S Follow path. Monitor progress D/W RN Dr.A. Conner to resume care in am. Veronica Duarte MD Nov 18, 2016 14:30
[2016-11-18] MEDS: DAPTOmycin INJ 650 MG in SODIUM CHLORIDE 0.9% INJ 100 ML IV SCH (18:21)
[2016-11-18] MEDS: PANTOPRAZOLE SODIUM 40 MG VIAL IV PUSH SCH (20:38)
[2016-11-18] MEDS: MONTELUKAST SODIUM 10 MG TAB PO SCH (20:39)
[2016-11-19] VITALS (13 sets, daily range): BP systolic 143–154; BP diastolic 67–78; PULSE 76–121; RESP 13–22; TEMP 97.7–98; O2SAT 95–97
[2016-11-19] MEDS: MORPHINE SULFATE 4 MG/ML INJ IV PUSH PRN ×11 (01:25→23:58)
[2016-11-19] MEDS: RESP: ALBUTEROL 2.5 MG/IPRATROPIUM 0.5 MG NEB (SCH) NEB ×6 (04:00→20:00)
[2016-11-19] MEDS: methylPREDNISolone SOD SUCC 40 MG/1 ML VIAL IV SCH ×3 (06:00→22:07)
[2016-11-19] MEDS: HEPARIN SODIUM - SQ 10,000 UNITS/ML VIAL SQ SCH ×3 (06:01→22:08)
[2016-11-19] MEDS: INSULIN NovoLIN REGULAR SUPPLEMENTAL SCALE SQ SCH ×3 (06:02→18:26)
--- NOTE | 2016-11-19 06:04 | RADRPT ---
EXAM DATE/TIME: 11/19/2016 04:28 [facility] COMPARISON: CHEST SINGLE AP, November 17, 2016, 9:20. CHEST SINGLE AP, November 15, 2016, 4:25. CHEST SINGLE AP, Apri 2016, 5:37. INDICATIONS : Shortness of breath. MEDICAL HISTORY : Hypertension. Cardiovascular disease. SURGICAL HISTORY : Mastectomy, bilateral. ENCOUNTER: Subsequent ACUITY: 1 week PAIN SCORE: Non-responsive. LOCATION: Bilateral chest FINDINGS: A single view of the chest demonstrates bilateral perihilar vascular congestion with clips suggesting CABG. Right-sided PICC line. There is no pneumothorax.. The cardiomediastinal contours are unremark able. Osseous structures are intact. CONCLUSION: Bilateral pulmonary hilar vascular congestion is unchanged. Saran Kenyon MD on November 19, 2016 at 6:02 Board Certified Radiologist. This report was verified electronically.
[2016-11-19 06:52] LABS: AUTOMATED NEUTROPHIL # 16.7 TH/MM3 (1.8-7.7); HEMATOCRIT 26.9 % (35.0-46.0); LYMPH % 3.4 % (9.0-44.0); LYMPHOCYTE # 0.6 TH/MM3 (1.0-4.8); MEAN CELL VOLUME 84.1 FL (80.0-100.0); MEAN CORPUSCULAR HEMOGLOBIN 26.8 PG (27.0-34.0); MEAN CORPUSCULAR HGB CONC 31.8 % (32.0-36.0); NEUT % 92.6 % (16.0-70.0); PLATELET COUNT 158 TH/MM3 (150-450); RED BLOOD COUNT 3.19 MIL/MM3 (4.00-5.30); RED CELL DISTRIBUTION WIDTH 18.3 % (11.6-17.2); WHITE BLOOD COUNT 18.1 TH/MM3 (4.0-11.0)
[2016-11-19 07:04] LABS: HEMO FLAGS AUTO DIFF
[2016-11-19 07:35] LABS: BICARBONATE 29.6 MEQ/L (21.0-32.0); MAGNESIUM 1.8 MG/DL (1.5-2.5); POTASSIUM 3.7 MEQ/L (3.5-5.1)
[2016-11-19 07:56] LABS: CALCIUM-PROTEIN CORRECTED 7.6 MG/DL (8.5-10.1)
[2016-11-19] MEDS: ASPIRIN 81 MG CHEW TAB CHEW SCH (08:58)
[2016-11-19] MEDS: AMIODARONE 200 MG TAB PO SCH (08:58)
[2016-11-19] MEDS: INSULIN DETEMIR 100 UNITS/ML VIAL SQ SCH ×2 (08:59→22:07)
[2016-11-19] MEDS: DOCUSATE SODIUM 100 MG CAP PO SCH ×2 (08:59→22:08)
[2016-11-19] MEDS: BUDESONIDE-FORMOTEROL 160/4.5 MCG INHALER INH SCH ×2 (09:00→22:10)
[2016-11-19] MEDS: oxyCODONE/ACETAMINOPHEN 10 MG/325 MG TAB PO PRN (09:00)
[2016-11-19 09:32] LABS: BANDS 2 % (0-6); CORRECTED NUCLEATED RBC 21 /100 WBC (0-0); METAMYELOCYTES 1 % (0-1); NEUTROPHIL # MANUAL DIFF 17.9 TH/MM3 (1.8-7.7); PLATELET ESTIMATE SMEAR NORMAL (NORMAL); PLATELET MORPHOLOGY NORMAL (NORMAL); POLYS (SEG NEUTROPHILS) 96 % (16-70); SCAN/DIFF FINAL DIFF MANUAL; WBC DIFF SAMPLE 100
[2016-11-19] MEDS: DAPTOmycin INJ 650 MG in SODIUM CHLORIDE 0.9% INJ 100 ML IV SCH (13:34)
--- NOTE | 2016-11-19 14:21 | PD.TRANSFR ---
Transfer Summary Admission Date Nov 12, 2016 at 17:17 Admitting Diagnosis septic shock, osteo Diagnoses: (1) Amputation of right lower extremity below knee Diagnosis: Principal (2) Demand ischemia Diagnosis: Principal (3) DM (diabetes mellitus) Diagnosis: Principal (4) HTN (hypertension) Diagnosis: Principal (5) CAD (coronary artery disease) Diagnosis: Principal (6) Septic shock Diagnosis: Principal (7) Osteomyelitis of right foot Diagnosis: Principal Significant Findings Ischemic right leg DATE OF SURGERY 11/15/16 PREOPERATIVE DIAGNOSIS Gangrene of the right foot, peripheral vascular disease, coronary artery disease and COPD. POSTOPERATIVE DIAGNOSIS Gangrene of the right foot, peripheral vascular disease, coronary artery disease and COPD. PROCEDURE Right below-knee amputation. Transfer Summary/Subjective This is a 60yF with h/o DM, htn, atrial fibrillation and prior transmetatarsal amputation of right foot (podiatry Dr. Spaulding) in 10/2016 for osteomyelitis. She was on outpatient therapy with vancomycin and levaquin through existing RUE PICC line. She presents to the ED with complaints of weakness and right foot pain over the last 2-3 days. She was hypotensive in the emergency department which was only minimally responsive to 30 mL/kg ivf bolus. she was started on Levophed in the emergency department. In the ER, xray of the foot demonstrated gas in the soft tissues, concerning for recurrent, worsening osteomyelitis. When I evaluated the patient, she was somnolent but arousable. However, she was too somnolent to add any additional history and kept falling asleep on my exam. laboratory data is significant for wbc 9.3, hgb 7.9, cr 1.99, lactate 1.3, Trop 0.59. Critical care medicine is consulted to evaluate and manage septic shock in the setting of likely recurrent right foot osteomyelitis. 11/13: Patient remains on 3 mics of Levophed for septic shock. Worsening hypoxemic respiratory failure now on BiPAP. Review of previous records indicated that Dr. Cooper has initially recommended right below-knee amputation. Dr. Wheeler was asked to give a second opinion. Patient opted for a limb salvage attempt. ID last admission was Dr. Conner. Right foot x-ray showing probable osteomyelitis. Vascular surgery may need to be re-consulted for right BKA- await ID, podiatry input 11/14: Off all pressors. At this time remains off BiPAP. Patient is agreeable to R below-knee amputation at this time, she spoke to Dr. Cooper 11/15: Patient was seen after right below-knee amputation by Dr. Cooper. Breathing comfortably. Remains off pressors. 11/16: Afebrile. Remains on 8 L simple mask post extubation. Off vasopressors. Very poor appetite. Blood sugars remained in the 200s. 11/17: Afebrile. On 7 L supplemental mask currently. Off vasopressors. Blood sugars in the 300s currently. Noted dressing changes by vascular surgery on Friday plan. 11/18: Resting comfortable in bed. Currently nasal cannula. Denies complaint. Denies chest pain. Did not use BiPAP overnight. SUBJECTIVE: 11/19: Currently on 4 L nasal cannula. Requesting IV pain morphine. Appears couple. Right leg is undressed revealing well-healing stump. Denies chest pain or shortness of breath. Objective Vital Signs Date Time Temp Pulse Resp B/P Pulse Ox O2 Delivery O2 Flow Rate FiO2 11/19/16 12:00 93 11/19/16 12:00 98.0 18 150/69 97 11/19/16 08:40 Nasal Cannula 5.00 Intake and Output 11/18/16 11/18/16 11/19/16 08:00 16:00 00:00 Intake Total 710 ml 1010 ml 612 ml Output Total 500 ml 1900 ml 1100 ml Balance 210 ml -890 ml -488 ml Result Diagram: 11/19/16 0558 11/19/16 0558 Imaging Last Impressions Chest X-Ray 11/19/16 0600 Signed Impressions: Service Date/Time: Saturday, November 19, 2016 04:28 - CONCLUSION: Bilateral pulmonary hilar vascular congestion is unchanged. Saran Kenyon MD Foot X-Ray 11/12/16 0000 Signed Impressions: Service Date/Time: Saturday, November 12, 2016 15:39 - CONCLUSION: Extensive soft tissue defect/ulceration with soft tissue emphysema and findings concerning for osteomyelitis. Felix Murcia MD Objective Remarks GENERAL: 60-year-old female, critically ill currently resting in bed in no acute distress SKIN: Warm and dry. No rash. Status post right [id number] amputation covered an René bandage HEAD: Atraumatic. Normocephalic. EYES: Pupils equal and round about 2 mm bilaterally and reactive. No scleral icterus. No injection or drainage. ENT: No nasal bleeding or discharge. Mucous membranes pink and moist. NECK: Trachea midline. No JVD. CARDIOVASCULAR: Regular rate and rhythm. S1, S2. No S4. RESPIRATORY: Diminished breath sounds in bases bilaterally. Few crackles appreciated. Breath sounds equal bilaterally. GASTROINTESTINAL: Abdomen soft, non-tender, nondistended. Hypoactive bowel sounds are appreciated MUSCULOSKELETAL: Left lower Extremities with 1+ lower extremity edema. Right BKA with sutures clean dry and intact. NEUROLOGICAL: Awake and alert. No obvious cranial nerve deficits. Motor grossly within normal limits. Five out of 5 muscle strength in the arms and legs. Normal speech. A/P Assessment and Plan Neuro/Psych: metabolic encephalopathy Depression Diabetic neuropathy /Anxiety -- Encephalopathy secondary to sepsis-now resolving -- hold Cymbalta 60 mg twice a day, gabapentin 300 mg every 6 hours and tizanidine 4 mg every 8 hours. Resume when clinically indicated -- Pain control with morphine IV. Refusing oral medications Resp: Acute hypoxemic respiratory failure Atelectasis History of COPD/asthma Currently off BiPAP-use when necessary Good saturation on nasal cannula 4 L. Wean as tolerated to maintain saturations greater than equal to 92% DuoNeb every 4 hours scheduled and when necessary albuterol nebs every 2 hours Repeat chest x-ray 11/17 revealed stable cardiomegaly findings Singular 10 mg by mouth daily will be resumed CV: CAD status post CABG 2013 Peripheral vascular disease Septic shock-resolved Type II NSTEMI/demand ischemia h/o Hypertension Atrial fibrillation - paroxysmal currently in normal sinus rhythm Continue home amiodarone 200 mg by mouth daily Aspirin 81 mg daily Hold antihypertensives/home medication metoprolol 12.5 twice a day and losartan 25 mg daily given sepsis hold Imdur 30 mg daily Troponins last one 0.20 secondary to stress and demand ischemia combined with poor renal clearance. Cardiology consulted, for NSTEMI Dr. Russo ECHO- mild LVH. concentric hypertrophy. systolic function severely reduced. EF 25% to 30%. Right ventricle dilated/left atrium dilated Renal: Acute kidney injury - resolving likely secondary to sepsis Maintain [place] catheter Strict i/o's Monitor urine output and creatinine slowly normalizing FEN/GI: Replaced electrolytes as clinically indicated 20 mEq KCl's, 2 g mag sulfate 1. Recheck in a.m. Currently on ADA diet. Protonix for GI prophylaxis Colace for bowel regimen Heme/ID Right foot osteomyelitis, cellulitis Septic shock Leukocytosis Normocytic anemia s/p right BKA by Dr. Wakefield 11/15/16 ABX- Daptomycin, Aztreonam, Flagyl. ID Dr. Conner has prior grown PSAE and MRSA in wound. 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 Pertinent cultures 11/12 - blood cultures 2 - no growth 11/12 - wound - VRE Endocrine: DMII Hyperglycemia of critical illness Ssi, med, q6h. 35 units sliding scale past 24 hours. Continue Levemir 26 twice a day Holding home medication Novulin 70/30 30 units twice a day and insulin R sliding -scale RheumMSK: History of SLE No current therapy Holding alendronate 70 mg daily for osteoporosis Prophyalxis: -- SQH, SCDs, protonix iv. Lines: -- Midline line remains for now and right upper extremity. -- [place] Critical Care: The total care time was 35 minutes. Time to perform other separately billable procedures was not included in the critical care time. Patient is stable from a critical care medicine standpoint. We'll assign care to hospitalist 11/20. Transfer to floor. Call questions arise. Mayo Becker MD Nov 19, 2016 14:21
[2016-11-19] MEDS ORDERED: POTASSIUM CHLORIDE 20 MEQ CONTROLLED RELEASE TAB PO ONE (14:30)
[2016-11-19] MEDS: MAGNESIUM SULFATE 1 GM PREMIX 100 ML IV SCH ×2 (14:34→15:47)
--- NOTE | 2016-11-19 18:30 | PD.CAR.PN ---
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 I saw the patient in October 2016 and recommended below knee amputation. At this point, we have exhausted all other salvage options and the patient is recovering from a septic episode. Will take for R BKA in next 24 to 48h when well resuscitated and stable J 11/14/16 Patient with R foot gangrene at transection site with exposed tarsal bones Dr. Wheeler's opinion greatly appreciated Patient was yesterday unwilling to commit to surgery and wanted to wait another day or two. I explained to the patient that she will only get sicker and that the gangrene is now causing systemic symptoms and decline. Today, after speaking to me, the patient agrees to amputation tomorrow Scheduled for BKA in am. 11/16/2016 Status post right below-knee amputation Patient has been extubated and is stable Dressing is dry and I'll keep the original dressing on until Friday and then remove it and change it Nothing to add at this time Patient might need a unit of blood at some point for her hemoglobin is 7.6 g/dL but I will leave this up to the intensive care team 11/19/16 Dressing removed stump is nice clean and dry healing as expected No drainage no ischemic areas Every effort should be made to prevent patient from falling out of bed or hitting the stump on to the floor because if that happens the precarious blood supply will be interrupted and patient will end up with above-knee amputation Objective: Vital Signs Date Time Temp Pulse Resp B/P Pulse Ox O2 Delivery O2 Flow Rate FiO2 11/19/16 18:00 92 11/19/16 16:00 97.8 76 18 149/67 97 11/19/16 16:00 92 11/19/16 14:00 93 11/19/16 12:00 93 11/19/16 12:00 98.0 76 18 150/69 97 11/19/16 12:00 18 11/19/16 10:00 92 11/19/16 08:40 96 Nasal Cannula 5.00 11/19/16 08:00 92 11/19/16 08:00 97.8 93 16 147/70 97 11/19/16 07:00 94 Nasal Cannula 5.00 11/19/16 06:00 92 11/19/16 04:00 97.7 93 14 154/72 97 11/19/16 04:00 93 11/19/16 02:00 93 11/19/16 00:00 92 11/19/16 00:00 97.9 92 13 153/78 95 11/18/16 22:00 90 11/18/16 20:00 90 11/18/16 20:00 97.8 89 15 146/82 94 11/18/16 19:00 94 Nasal Cannula 5.00 Result Diagram: 11/19/16 0558 11/19/16 0558 (1) Diabetic foot infection (2) Osteomyelitis of right foot (3) Demand ischemia (4) Septic shock (5) DM (diabetes mellitus) (6) HTN (hypertension) (7) CAD (coronary artery disease) Problem Qualifiers (1) Osteomyelitis of right foot: Qualified Code: M86.9 - Osteomyelitis of right foot, unspecified type Chantale Wakefield MD Nov 19, 2016 18:30
[2016-11-19] MEDS: MONTELUKAST SODIUM 10 MG TAB PO SCH (22:07)
[2016-11-19] MEDS: PANTOPRAZOLE SODIUM 40 MG VIAL IV PUSH SCH (22:08)
[2016-11-20] VITALS (10 sets, daily range): BP systolic 132–158; BP diastolic 54–74; PULSE 76–96; RESP 16–18; TEMP 97.3–97.7; O2SAT 91–100
[2016-11-20] MEDS: MORPHINE SULFATE 4 MG/ML INJ IV PUSH PRN ×6 (02:47→22:26)
[2016-11-20] MEDS: RESP: ALBUTEROL 2.5 MG/IPRATROPIUM 0.5 MG NEB (SCH) NEB ×6 (04:00→20:00)
[2016-11-20] MEDS: INSULIN NovoLIN REGULAR SUPPLEMENTAL SCALE SQ SCH ×4 (06:00→17:29)
[2016-11-20] MEDS: HEPARIN SODIUM - SQ 10,000 UNITS/ML VIAL SQ SCH ×3 (06:00→21:29)
[2016-11-20] MEDS: methylPREDNISolone SOD SUCC 40 MG/1 ML VIAL IV SCH (06:00)
[2016-11-20] MEDS: ASPIRIN 81 MG CHEW TAB CHEW SCH (08:30)
[2016-11-20] MEDS: DOCUSATE SODIUM 100 MG CAP PO SCH ×2 (08:30→21:22)
[2016-11-20] MEDS: AMIODARONE 200 MG TAB PO SCH (08:30)
[2016-11-20] MEDS: INSULIN DETEMIR 100 UNITS/ML VIAL SQ SCH ×2 (08:31→21:24)
[2016-11-20] MEDS: BUDESONIDE-FORMOTEROL 160/4.5 MCG INHALER INH SCH ×2 (08:31→21:23)
--- NOTE | 2016-11-20 08:54 | HHI.PR ---
Subjective Remarks Follow-up MRSA DFI/osteomyelitis right foot status post amputation/severe sepsis 11/20/16-patient seen and examined, currently afebrile and requesting IV narcotics instead of by mouth. Alert and oriented 3. Objective Vitals Vital Signs Date Time Temp Pulse Resp B/P Pulse Ox O2 Delivery O2 Flow Rate FiO2 11/20/16 05:20 20 11/20/16 04:00 97.3 84 18 141/64 95 11/20/16 02:23 90 11/20/16 00:00 97.4 86 18 158/74 98 11/19/16 23:58 Nasal Cannula 4.00 11/19/16 22:00 92 11/19/16 20:00 121 11/19/16 20:00 97.8 91 22 143/68 96 11/19/16 19:00 96 Nasal Cannula 5.00 11/19/16 18:00 92 11/19/16 16:00 97.8 76 18 149/67 97 11/19/16 16:00 92 11/19/16 14:00 93 11/19/16 12:00 93 11/19/16 12:00 98.0 76 18 150/69 97 11/19/16 10:00 92 I/O 11/19/16 11/19/16 11/19/16 11/20/16 11/20/16 11/20/16 07:00 15:00 23:00 07:00 15:00 23:00 Intake Total 520 ml 1450 ml 906 ml 240 ml Output Total 550 ml 872 ml 650 ml 550 ml Balance -30 ml 578 ml 256 ml -310 ml Intake Oral 480 ml 1450 ml 720 ml 240 ml IV Total 40 ml 186 ml Output Urine Total 550 ml 850 ml 650 ml 550 ml Stool Total 22 ml 0 ml Result Diagram: 11/19/16 0558 11/19/16 0558 Imaging Last Impressions Chest X-Ray 11/19/16 0600 Signed Impressions: Service Date/Time: Saturday, November 19, 2016 04:28 - CONCLUSION: Bilateral pulmonary hilar vascular congestion is unchanged. Saran Kenyon MD Foot X-Ray 11/12/16 0000 Signed Impressions: Service Date/Time: Saturday, November 12, 2016 15:39 - CONCLUSION: Extensive soft tissue defect/ulceration with soft tissue emphysema and findings concerning for osteomyelitis. Felix Murcia MD Objective Remarks GENERAL: NAD SKIN: Warm and dry. HEAD: Normocephalic. EYES: No scleral icterus. No injection or drainage. NECK: Supple, trachea midline. No JVD or lymphadenopathy. CARDIOVASCULAR: Regular rate and rhythm without murmurs, gallops, or rubs. RESPIRATORY: Breath sounds equal bilaterally. No accessory muscle use. GASTROINTESTINAL: Abdomen soft, non-tender, nondistended. MUSCULOSKELETAL: No cyanosis, or edema. s/p Right BKA BACK: Nontender without obvious deformity. No CVA tenderness. Procedures Right below-knee amputation 11/15/16 A/P Problem List: (1) Amputation of right lower extremity below knee ICD Code: Z89.511 Status: Acute (2) Demand ischemia ICD Code: I24.8 Status: Acute (3) DM (diabetes mellitus) ICD Code: E11.9 Status: Chronic (4) HTN (hypertension) ICD Code: I10 Status: Chronic (5) CAD (coronary artery disease) ICD Code: I25.10 Status: Chronic (6) Septic shock ICD Code: A41.9 Status: Acute (7) Osteomyelitis of right foot ICD Code: M86.9 Status: Acute (8) Diabetic foot infection ICD Code: E11.69 Status: Acute (9) Methicillin resistant Staphylococcus aureus infection ICD Code: A49.02 Status: Acute (10) Anemia due to acute blood loss ICD Code: D62 Status: Acute Assessment and Plan 61-year-old female with metabolic encephalopathy-resolved Depression Diabetic neuropathy /Anxiety Resume Cymbalta 60 mg twice a day, however continue to hold gabapentin 300 mg every 6 hours and tizanidine 4 mg every 8 hours. -- Pain control with morphine BTP, NOrco Q6PRN every 6 when necessary Acute hypoxemic respiratory failure-resolved Atelectasis History of COPD/asthma --Discontinue Solu-Medrol and start prednisone 20 mg by mouth twice a day --DuoNeb every 4 hours scheduled and when necessary albuterol nebs every 2 hours --Singular 10 mg by mouth daily --Perform respiratory walk test prior to discharge Olga Lidia status post CABG 2013 Peripheral vascular disease Septic shock-resolved Type II NSTEMI/demand ischemia h/o hypertension Atrial fibrillation - paroxysmal currently in normal sinus rhythm -- continue home amiodarone 200 mg by mouth daily -- Aspirin 81 mg daily -- Resume antihypertensives/home medication metoprolol 12.5 twice a day and Imdur 30 mg daily except losartan 25 mg daily -- Troponins last one 0.20 secondary to stress and demand ischemia combined with poor renal clearance. -- ECHO- mild LVH. concentric hypertrophy. systolic function severely reduced. EF 25% to 30%. Right ventricle dilated/left atrium dilated --Appreciate input from cardiology Dr. Russo was consulted for non-ST elevation FL Acute kidney injury - improving -- likely secondary to sepsis -- We will DC york catheter -- strict i/o's --Monitor urine output and creatinine slowly normalizing MRSA diabetic foot infection Right foot osteomyelitis, cellulitis septic shock -- s/p right BKA by Dr. Wakefield 11/15/16 -- ABX-currently on Daptomycin, status post Aztreonam and Flagyl. -- ID Dr. Conner -- has prior grown PSAE and MRSA in wound. 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 Leukocytosis: Likely secondary to steroid versus infection Anemia of acute blood loss: Hemoglobin 6.9 therefore will transfuse 1 unit packed red blood cells today 11/20/16 and monitor H&H diabetes mellitus2 Continue with Levemir 26 twice a day and insulin sliding scale Holding home medication Novulin 70/30 30 units twice a day and insulin R sliding -scale History of SLE No current therapy Holding alendronate 70 mg daily for osteoporosis Prophyalxis: -- SQH, SCDs, protonix iv. Problem Qualifiers (1) Osteomyelitis of right foot: Qualified Code: M86.9 - Osteomyelitis of right foot, unspecified type Jean Aviles MD Nov 20, 2016 08:54
[2016-11-20] MEDS ORDERED: PILL SPLITTER OTHER PRN (09:45)
[2016-11-20] MEDS: predniSONE 20 MG TAB PO SCH ×2 (11:25→21:22)
[2016-11-20] MEDS: ISOSORBIDE MONONITRATE 30 MG TAB PO SCH (11:26)
[2016-11-20] MEDS: METOPROLOL TARTRATE 25 MG TAB PO SCH ×2 (11:26→21:23)
[2016-11-20] MEDS: DULoxetine HCl DR 60 MG CAP PO SCH ×2 (11:33→21:00)
[2016-11-20] MEDS: oxyCODONE/ACETAMINOPHEN 10 MG/325 MG TAB PO PRN ×2 (13:23→19:27)
[2016-11-20 14:04] LABS: HEMATOCRIT 21.6 % (35.0-46.0); MEAN CELL VOLUME 84.8 FL (80.0-100.0); MEAN CORPUSCULAR HGB CONC 31.8 % (32.0-36.0); PLATELET COUNT 111 TH/MM3 (150-450); RED BLOOD COUNT 2.55 MIL/MM3 (4.00-5.30); RED CELL DISTRIBUTION WIDTH 18.6 % (11.6-17.2); WHITE BLOOD COUNT 12.6 TH/MM3 (4.0-11.0)
[2016-11-20 14:06] LABS: REVIEW FLAG FINAL
[2016-11-20 14:28] LABS: BICARBONATE 31.8 MEQ/L (21.0-32.0); MAGNESIUM 1.9 MG/DL (1.5-2.5); POTASSIUM 3.9 MEQ/L (3.5-5.1)
[2016-11-20] MEDS ORDERED: ACETAMINOPHEN 325 MG TAB PO PRN (14:30)
[2016-11-20] MEDS ORDERED: diphenhydrAMINE HCL 25 MG CAP PO PRN (14:30)
[2016-11-20] MEDS ORDERED: SODIUM CHLOR 0.9% 250 ML INJ 250 ML IV ONE (14:30)
[2016-11-20 14:41] LABS: CALCIUM-PROTEIN CORRECTED 7.9 MG/DL (8.5-10.1)
[2016-11-20] MEDS: DAPTOmycin INJ 650 MG in SODIUM CHLORIDE 0.9% INJ 100 ML IV SCH (15:51)
[2016-11-20] MEDS: MONTELUKAST SODIUM 10 MG TAB PO SCH (21:22)
[2016-11-20] MEDS: PANTOPRAZOLE SODIUM 40 MG VIAL IV PUSH SCH (21:24)
[2016-11-21] VITALS (11 sets, daily range): BP systolic 127–159; BP diastolic 61–76; PULSE 73–82; RESP 18; TEMP 97.4–97.9; O2SAT 92–96
[2016-11-21] MEDS: oxyCODONE/ACETAMINOPHEN 10 MG/325 MG TAB PO PRN ×3 (01:28→14:16)
[2016-11-21] MEDS: RESP: ALBUTEROL 2.5 MG/IPRATROPIUM 0.5 MG NEB (SCH) NEB ×5 (03:51→16:07)
[2016-11-21] MEDS: MORPHINE SULFATE 4 MG/ML INJ IV PUSH PRN ×3 (04:30→17:16)
[2016-11-21] MEDS: HEPARIN SODIUM - SQ 10,000 UNITS/ML VIAL SQ SCH ×2 (05:50→13:26)
[2016-11-21] MEDS: INSULIN NovoLIN REGULAR SUPPLEMENTAL SCALE SQ SCH ×3 (05:50→13:25)
[2016-11-21 07:15] LABS: AUTOMATED NEUTROPHIL # 14.6 TH/MM3 (1.8-7.7); BASOPHIL % 0.2 % (0.0-2.0); HEMATOCRIT 31.9 % (35.0-46.0); LYMPH % 3.3 % (9.0-44.0); LYMPHOCYTE # 0.5 TH/MM3 (1.0-4.8); MEAN CORPUSCULAR HGB CONC 31.8 % (32.0-36.0); MONO % 5.3 % (0.0-8.0); NEUT % 91.2 % (16.0-70.0); PLATELET COUNT 121 TH/MM3 (150-450); RED BLOOD COUNT 3.75 MIL/MM3 (4.00-5.30); RED CELL DISTRIBUTION WIDTH 18.1 % (11.6-17.2)
[2016-11-21 07:18] LABS: HEMO FLAGS AUTO DIFF
[2016-11-21 07:36] LABS: BICARBONATE 30.4 MEQ/L (21.0-32.0); POTASSIUM 3.8 MEQ/L (3.5-5.1)
[2016-11-21 08:05] LABS: PLATELET ESTIMATE SMEAR LOW (NORMAL); PLATELET MORPHOLOGY NORMAL (NORMAL); SCAN/DIFF AUTO DIFF CONFIRMED; TOXIC VACUOLATION PRESENT (NONE SEEN)
[2016-11-21] MEDS: ASPIRIN 81 MG CHEW TAB CHEW SCH (08:07)
[2016-11-21] MEDS: DULoxetine HCl DR 60 MG CAP PO SCH (08:07)
[2016-11-21] MEDS: ISOSORBIDE MONONITRATE 30 MG TAB PO SCH (08:07)
[2016-11-21] MEDS: AMIODARONE 200 MG TAB PO SCH (08:08)
[2016-11-21] MEDS: METOPROLOL TARTRATE 25 MG TAB PO SCH (08:08)
[2016-11-21] MEDS: predniSONE 20 MG TAB PO SCH (08:08)
[2016-11-21] MEDS: DOCUSATE SODIUM 100 MG CAP PO SCH (08:09)
[2016-11-21] MEDS: INSULIN DETEMIR 100 UNITS/ML VIAL SQ SCH (08:11)
[2016-11-21] MEDS: BUDESONIDE-FORMOTEROL 160/4.5 MCG INHALER INH SCH (08:11)
--- NOTE | 2016-11-21 10:55 | HHI.PR ---
Subjective Remarks Follow-up MRSA DFI/osteomyelitis right foot status post amputation/severe sepsis 11/20/16-patient seen and examined, currently afebrile and requesting IV narcotics instead of by mouth. Alert and oriented 3. 11/21/16-patient seen and examined, still complains of inadequate pain control to right stump otherwise afebrile and no acute event overnight. She was transfused 1 unit packed and Rocephin yesterday Objective Vitals Vital Signs Date Time Temp Pulse Resp B/P Pulse Ox O2 Delivery O2 Flow Rate FiO2 11/21/16 08:33 95 Nasal Cannula 5.00 11/21/16 08:22 97.5 82 18 149/68 93 11/21/16 06:33 75 11/21/16 04:00 97.6 78 18 155/73 95 11/21/16 03:25 97.5 76 18 145/62 95 11/21/16 02:43 20 11/21/16 01:30 74 18 136/66 96 11/21/16 00:39 97.5 73 18 127/62 95 11/21/16 00:25 97.5 75 18 136/61 93 11/21/16 00:00 97.4 75 18 157/63 94 11/20/16 21:30 Room Air 11/20/16 20:00 97.4 77 16 132/61 91 11/20/16 18:29 91 11/20/16 16:27 99 Nasal Cannula 5.00 11/20/16 16:00 97.4 76 18 134/63 94 11/20/16 12:00 97.7 96 18 134/54 99 I/O 11/20/16 11/20/16 11/20/16 11/21/16 11/21/16 11/21/16 06:59 14:59 22:59 06:59 14:59 22:59 Intake Total 240 ml 360 ml 240 ml 480 ml Output Total 550 ml 800 ml 200 ml Balance -310 ml -440 ml 40 ml 480 ml Intake Oral 240 ml 360 ml 240 ml 480 ml Output Urine Total 550 ml 800 ml 200 ml # Voids 0 1 # Bowel Movements 0 0 Result Diagram: 11/21/16 0652 11/21/16 0652 Objective Remarks GENERAL: NAD SKIN: Warm and dry. HEAD: Normocephalic. EYES: No scleral icterus. No injection or drainage. NECK: Supple, trachea midline. No JVD or lymphadenopathy. CARDIOVASCULAR: Regular rate and rhythm without murmurs, gallops, or rubs. RESPIRATORY: Breath sounds equal bilaterally. No accessory muscle use. GASTROINTESTINAL: Abdomen soft, non-tender, nondistended. MUSCULOSKELETAL: No cyanosis, or edema. s/p Right BKA BACK: Nontender without obvious deformity. No CVA tenderness. Procedures Right below-knee amputation 11/15/16 A/P Problem List: (1) Amputation of right lower extremity below knee ICD Code: Z89.511 Status: Acute (2) Demand ischemia ICD Code: I24.8 Status: Acute (3) DM (diabetes mellitus) ICD Code: E11.9 Status: Chronic (4) HTN (hypertension) ICD Code: I10 Status: Chronic (5) CAD (coronary artery disease) ICD Code: I25.10 Status: Chronic (6) Septic shock ICD Code: A41.9 Status: Acute (7) Osteomyelitis of right foot ICD Code: M86.9 Status: Acute (8) Diabetic foot infection ICD Code: E11.69 Status: Acute (9) Methicillin resistant Staphylococcus aureus infection ICD Code: A49.02 Status: Acute (10) Anemia due to acute blood loss ICD Code: D62 Status: Acute Assessment and Plan 61-year-old female with metabolic encephalopathy-resolved Depression Diabetic neuropathy /Anxiety Continue Cymbalta 60 mg twice a day, however continue to hold gabapentin 300 mg every 6 hours and tizanidine 4 mg every 8 hours. -- Pain control with morphine BTP, NOrco Q6PRN every 6 when necessary Acute hypoxemic respiratory failure-resolved Atelectasis History of COPD/asthma --s/p Solu-Medrol and continue prednisone 20 mg by mouth twice a day --DuoNeb every 4 hours scheduled and when necessary albuterol nebs every 2 hours --Singular 10 mg by mouth daily --Perform respiratory walk test prior to discharge Olga Lidia status post CABG 2013 Peripheral vascular disease Septic shock-resolved Type II NSTEMI/demand ischemia h/o hypertension Atrial fibrillation - paroxysmal currently in normal sinus rhythm -- continue home amiodarone 200 mg by mouth daily -- Aspirin 81 mg daily -- continue antihypertensives/home medication metoprolol 12.5 twice a day and Imdur 30 mg daily except losartan 25 mg daily. However losartan will be resumed on discharge -- Troponins last one 0.20 secondary to stress and demand ischemia combined with poor renal clearance. -- ECHO- mild LVH. concentric hypertrophy. systolic function severely reduced. EF 25% to 30%. Right ventricle dilated/left atrium dilated --Appreciate input from cardiology Dr. Russo was consulted for non-ST elevation PA Acute kidney injury - improving -- likely secondary to sepsis -- s/p york catheter -- strict i/o's --Monitor urine output and creatinine slowly normalizing MRSA diabetic foot infection Right foot osteomyelitis, cellulitis septic shock -- s/p right BKA by Dr. Wakefield 11/15/16 -- ABX-currently on Daptomycin, status post Aztreonam and Flagyl. -- ID Dr. Conner -- has prior grown PSAE and MRSA in wound. 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 Leukocytosis: Likely secondary to steroid versus infection Anemia of acute blood loss: Status post 1 unit PRBC transfused 11/20/16. H&H stable diabetes mellitus2 Continue with Levemir 26 twice a day and insulin sliding scale Holding home medication Novulin 70/30 30 units twice a day and insulin R sliding -scale. however this would be resuming on discharge History of SLE No current therapy Holding alendronate 70 mg daily for osteoporosis Prophyalxis: -- SQH, SCDs, protonix iv. Discharge Planning Likely discharge to SNF today Problem Qualifiers (1) Osteomyelitis of right foot: Qualified Code: M86.9 - Osteomyelitis of right foot, unspecified type Jean Aviles MD Nov 21, 2016 10:55
--- NOTE | 2016-11-21 10:57 | HHI.DS ---
Discharge Summary Admission Date Nov 12, 2016 at 17:17 Discharge Date: Nov 21, 2016 Admitting Diagnosis septic shock, osteo (1) Amputation of right lower extremity below knee ICD Code: Z89.511 (2) Demand ischemia ICD Code: I24.8 (3) DM (diabetes mellitus) ICD Code: E11.9 (4) HTN (hypertension) ICD Code: I10 (5) CAD (coronary artery disease) ICD Code: I25.10 (6) Septic shock ICD Code: A41.9 (7) Osteomyelitis of right foot ICD Code: M86.9 (8) Diabetic foot infection ICD Code: E11.69 (9) Methicillin resistant Staphylococcus aureus infection ICD Code: A49.02 (10) Anemia due to acute blood loss ICD Code: D62 Procedures Right below-knee amputation 11/15/16 Brief History - From Admission This is a 60yF with h/o DM, htn, atrial fibrillation and prior transmetatarsal amputation of right foot in 10/2016 for osteomyelitis. She was on outpatient therapy with vancomycin and levaquin through existing RUE PICC line. She presents to the ED with complaints of weakness and right foot pain over the last 2-3 days. She was hypotensive in the emergency department which was only minimally responsive to 30 mL/kg ivf bolus. she was started on Levophed in the emergency department. In the ER, xray of the foot demonstrated gas in the soft tissues, concerning for recurrent, worsening osteomyelitis. When I evaluated the patient, she was somnolent but arousable. However, she was too somnolent to add any additional history and kept falling asleep on my exam. laboratory data is significant for wbc 9.3, hgb 7.9, cr 1.99, lactate 1.3, Trop 0.59. Critical care medicine is consulted to evaluate and manage septic shock in the setting of likely recurrent right foot osteomyelitis. CBC/BMP: 11/21/16 0652 11/21/16 0652 Significant Findings Laboratory Tests Test 11/19/16 11/20/16 11/21/16 05:58 13:30 06:52 White Blood Count 18.1 TH/MM3 12.6 TH/MM3 16.0 TH/MM3 (4.0-11.0) (4.0-11.0) (4.0-11.0) Red Blood Count 3.19 MIL/MM3 2.55 MIL/MM3 3.75 MIL/MM3 (4.00-5.30) (4.00-5.30) (4.00-5.30) Hemoglobin 8.6 GM/DL 6.9 GM/DL 10.1 GM/DL (11.6-15.3) (11.6-15.3) (11.6-15.3) Hematocrit 26.9 % 21.6 % 31.9 % (35.0-46.0) (35.0-46.0) (35.0-46.0) Mean Corpuscular Hemoglobin 26.8 PG (27.0-34.0) Mean Corpuscular Hemoglobin 31.8 % 31.8 % 31.8 % Concent (32.0-36.0) (32.0-36.0) (32.0-36.0) Red Cell Distribution Width 18.3 % 18.6 % 18.1 % (11.6-17.2) (11.6-17.2) (11.6-17.2) Neutrophils (%) (Auto) 92.6 % 91.2 % (16.0-70.0) (16.0-70.0) Lymphocytes (%) (Auto) 3.4 % 3.3 % (9.0-44.0) (9.0-44.0) Neutrophils # (Auto) 16.7 TH/MM3 14.6 TH/MM3 (1.8-7.7) (1.8-7.7) Lymphocytes # (Auto) 0.6 TH/MM3 0.5 TH/MM3 (1.0-4.8) (1.0-4.8) Neutrophils % (Manual) 96 % (16-70) Lymphocytes % 1 % (9-44) Neutrophils # (Manual) 17.9 TH/MM3 (1.8-7.7) Nucleated Red Blood Cells 21 /100 WBC (0-0) Blood Urea Nitrogen 44 MG/DL (7-18) 36 MG/DL (7-18) 31 MG/DL (7-18) Creatinine 1.01 MG/DL (0.50-1.00) Estimat Glomerular Filtration 56 ML/MIN (>89) 68 ML/MIN (>89) 74 ML/MIN (>89) Rate Random Glucose 264 MG/DL 290 MG/DL 201 MG/DL (74-106) (74-106) (74-106) Calcium Level 7.3 MG/DL 7.3 MG/DL 7.7 MG/DL (8.5-10.1) (8.5-10.1) (8.5-10.1) Protein Corrected Calcium 7.6 MG/DL 7.9 MG/DL (8.5-10.1) (8.5-10.1) Platelet Count 111 TH/MM3 121 TH/MM3 (150-450) (150-450) Phosphorus Level 2.3 MG/DL (2.5-4.9) Total Protein 5.9 GM/DL (6.4-8.2) Toxic Vacuolation PRESENT (NONE SEEN) Platelet Estimate LOW (NORMAL) Imaging Last Impressions Chest X-Ray 11/19/16 0600 Signed Impressions: Service Date/Time: Saturday, November 19, 2016 04:28 - CONCLUSION: Bilateral pulmonary hilar vascular congestion is unchanged. Saran Kenyon MD Foot X-Ray 11/12/16 0000 Signed Impressions: Service Date/Time: Saturday, November 12, 2016 15:39 - CONCLUSION: Extensive soft tissue defect/ulceration with soft tissue emphysema and findings concerning for osteomyelitis. Felix Murcia MD PE at Discharge GENERAL: NAD SKIN: Warm and dry. HEAD: Normocephalic. EYES: No scleral icterus. No injection or drainage. NECK: Supple, trachea midline. No JVD or lymphadenopathy. CARDIOVASCULAR: Regular rate and rhythm without murmurs, gallops, or rubs. RESPIRATORY: Breath sounds equal bilaterally. No accessory muscle use. GASTROINTESTINAL: Abdomen soft, non-tender, nondistended. MUSCULOSKELETAL: No cyanosis, or edema. s/p Right BKA BACK: Nontender without obvious deformity. No CVA tenderness. Transfer Summary This is a 60yF with h/o DM, htn, atrial fibrillation and prior transmetatarsal amputation of right foot (podiatry Dr. Spaulding) in 10/2016 for osteomyelitis. She was on outpatient therapy with vancomycin and levaquin through existing RUE PICC line. She presents to the ED with complaints of weakness and right foot pain over the last 2-3 days. She was hypotensive in the emergency department which was only minimally responsive to 30 mL/kg ivf bolus. she was started on Levophed in the emergency department. In the ER, xray of the foot demonstrated gas in the soft tissues, concerning for recurrent, worsening osteomyelitis. When I evaluated the patient, she was somnolent but arousable. However, she was too somnolent to add any additional history and kept falling asleep on my exam. laboratory data is significant for wbc 9.3, hgb 7.9, cr 1.99, lactate 1.3, Trop 0.59. Critical care medicine is consulted to evaluate and manage septic shock in the setting of likely recurrent right foot osteomyelitis. 11/13: Patient remains on 3 mics of Levophed for septic shock. Worsening hypoxemic respiratory failure now on BiPAP. Review of previous records indicated that Dr. Cooper has initially recommended right below-knee amputation. Dr. Wheeler was asked to give a second opinion. Patient opted for a limb salvage attempt. ID last admission was Dr. Conner. Right foot x-ray showing probable osteomyelitis. Vascular surgery may need to be re-consulted for right BKA- await ID, podiatry input 11/14: Off all pressors. At this time remains off BiPAP. Patient is agreeable to R below-knee amputation at this time, she spoke to Dr. Cooper 11/15: Patient was seen after right below-knee amputation by Dr. Cooper. Breathing comfortably. Remains off pressors. 11/16: Afebrile. Remains on 8 L simple mask post extubation. Off vasopressors. Very poor appetite. Blood sugars remained in the 200s. 11/17: Afebrile. On 7 L supplemental mask currently. Off vasopressors. Blood sugars in the 300s currently. Noted dressing changes by vascular surgery on Friday plan. 11/18: Resting comfortable in bed. Currently nasal cannula. Denies complaint. Denies chest pain. Did not use BiPAP overnight. SUBJECTIVE: 11/19: Currently on 4 L nasal cannula. Requesting IV pain morphine. Appears couple. Right leg is undressed revealing well-healing stump. Denies chest pain or shortness of breath. Hospital Course Patient was initially admitted under the care of critical care medicine as she presented with metabolic encephalopathy, septic shock. She was intubated and subsequently extubated secondary to acute hypoxemic respiratory failure and COPD exacerbation which she was treated with IV Solu-Medrol, DuoNeb and antibiotics. She was diagnosed with diabetic foot infection and osteomyelitis for which both infectious disease specialist and vascular surgery were consulted. Patient underwent right BKA on 11/15/16. Diabetic regimen were adjusted accordingly. Patient was transfused 1 unit packed red blood cell. Renal function improved and treatment for other chronic medical conditions were resumed accordingly. PT was consulted, DVT and GI prophylaxis were provided. Vitals remained stable prior to discharge and patient's condition improved. Pt Condition on Discharge: Stable Discharge Disposition: Discharge to SNF Discharge Time: > 30 minutes Discharge Instructions DIET: Follow Instructions for: Diabetic Diet Activities you can perform: Regular-No Restrictions Follow up Referrals: PCP Follow-up - 2-3 Days Vascular Surgery New Medications: Sennosides-Docusate Sodium (Anali-Colace) 8.6-50 Mg Tab 1 TAB PO BID PRN Constipation #60 Ref 0 TAB Oxycodone-Acetaminophen (Oxycodone-Acetaminophen) 10-325 mg Tab 1 TAB PO Q6H PRN PAIN #20 TAB Prednisone (Prednisone) 20 Mg Tab 20 MG PO BID Breathing Treatment #3 TAB Continued Medications: Alendronate (Alendronate) 70 Mg Tab 70 MG PO Q7D Osteporosis Treatment #4 Ref 0 TAB Amiodarone (Amiodarone) 200 Mg Tab 200 MG PO DAILY Regulate Heart Beat #30 Ref 0 TAB Aspirin (Aspirin) 81 Mg Chew 81 MG PO DAILY Ref 0 TAB Atorvastatin (Lipitor) 40 Mg Tab 40 MG PO HS Cholesterol Management #30 Ref 0 TAB Cholecalciferol (Vitamin D) 5,000 Unit Tab 5000 UNITS PO DAILY Duloxetine DR (Duloxetine DR) 60 Mg Capdr 60 MG PO BID #30 Ref 0 CAP Gabapentin (Gabapentin) 300 Mg Cap 300 MG PO Q6HR #60 Ref 0 CAP Insulin Human Isophane-Regular 70-30 Inj (Novolin 70-30 Inj) 1,000 Unit/10 Ml Vial 30 UNITS SQ BID Blood Sugar Management Ref 0 ML Insulin Human Regular Inj (Novolin R Inj) 1,000 Unit/10 Ml Vial SQ ACHS Sliding Scale As Directed. Blood Sugar Management #10 Ref 0 ML Isosorbide Mononitrate ER (Isosorbide Mononitrate ER) 30 Mg Shonda 30 MG PO DAILY Prevent Chest Pain #30 Ref 0 TAB Losartan (Losartan) 25 Mg Tab 25 MG PO DAILY Blood Pressure Management #30 Ref 0 TAB Metoprolol Tartrate (Metoprolol Tartrate) 25 Mg Tab 12.5 MG PO BID #60 Ref 0 TAB Montelukast (Montelukast) 10 Mg Tab 10 MG PO HS #30 Ref 0 TAB Oxycodone-Acetaminophen (Percocet) 10-325 mg Tab 1 TAB PO QID PAIN Ref 0 TAB Discontinued Medications: Levofloxacin (Levaquin) 750 Mg Tab 750 MG PO Q24H Infection #40 TAB Tizanidine (Tizanidine) 4 Mg Cap 4 MG PO TID Muscle Spasm Ref 0 CAP Jean Aviles MD Nov 21, 2016 10:57 Jean Aviles MD Nov 21, 2016 10:57
[2016-11-21] MEDS ORDERED: OXYC1TAB36 PO (11:00)
[2016-11-21] MEDS ORDERED: PRED20 PO (11:00)
[2016-11-21] MEDS ORDERED: PERI8.6T PO (11:00)
[2016-11-21] MEDS: DAPTOmycin INJ 650 MG in SODIUM CHLORIDE 0.9% INJ 100 ML IV SCH (13:26)
--- NOTE | 2016-11-21 14:23 | HHI.IDPN ---
Subjective Subjective Remarks doing well no active co no fever Antibiotics daptomycin Lines PICC Past Medical History Reviewed Allergies: Coded Allergies: Bactrim (Verified Allergy, Severe, Shortness of Breath, 11/12/16) Iodine (Verified Allergy, Severe, THROAT SWELLS, 11/12/16) pt states does not have a allergy to Iodine 01/11/16 JF Penicillin (Verified Allergy, Severe, STOPPED BREATHING, 11/12/16) Shellfish (Verified Allergy, Severe, THROAT SWELLS, 11/12/16) *MDRO Multi-Drug Resistant Organism (Verified Adverse Reaction, Unknown, ) 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 Objective . Vital Signs Date Time Temp Pulse Resp B/P Pulse Ox O2 Delivery O2 Flow Rate FiO2 11/21/16 12:15 97.9 82 18 156/74 93 11/21/16 08:33 95 Nasal Cannula 5.00 11/21/16 08:22 97.5 82 18 149/68 93 11/21/16 06:33 75 11/21/16 04:00 97.6 78 18 155/73 95 11/21/16 03:25 97.5 76 18 145/62 95 11/21/16 02:43 20 11/21/16 01:30 74 18 136/66 96 11/21/16 00:39 97.5 73 18 127/62 95 11/21/16 00:25 97.5 75 18 136/61 93 11/21/16 00:00 97.4 75 18 157/63 94 11/20/16 21:30 Room Air 11/20/16 20:00 97.4 77 16 132/61 91 11/20/16 18:29 91 11/20/16 16:27 99 Nasal Cannula 5.00 11/20/16 16:00 97.4 76 18 134/63 94 11/20/16 11/20/16 11/21/16 15:00 23:00 07:00 Intake Total 360 ml 240 ml 480 ml Output Total 800 ml 200 ml Balance -440 ml 40 ml 480 ml Intake Oral 360 ml 240 ml 480 ml Output Urine Total 800 ml 200 ml # Voids 0 1 # Bowel Movements 0 0 . Laboratory Tests Test 11/20/16 11/21/16 13:30 06:52 White Blood Count 12.6 TH/MM3 16.0 TH/MM3 Red Blood Count 2.55 MIL/MM3 3.75 MIL/MM3 Hemoglobin 6.9 GM/DL 10.1 GM/DL Hematocrit 21.6 % 31.9 % Mean Corpuscular Volume 84.8 FL 85.0 FL Mean Corpuscular Hemoglobin 27.0 PG 27.0 PG Mean Corpuscular Hemoglobin 31.8 % 31.8 % Concent Red Cell Distribution Width 18.6 % 18.1 % Platelet Count 111 TH/MM3 121 TH/MM3 Mean Platelet Volume 8.5 FL 8.5 FL Neutrophils (%) (Auto) 91.2 % Lymphocytes (%) (Auto) 3.3 % Monocytes (%) (Auto) 5.3 % Eosinophils (%) (Auto) 0.0 % Basophils (%) (Auto) 0.2 % Neutrophils # (Auto) 14.6 TH/MM3 Lymphocytes # (Auto) 0.5 TH/MM3 Monocytes # (Auto) 0.8 TH/MM3 Eosinophils # (Auto) 0.0 TH/MM3 Basophils # (Auto) 0.0 TH/MM3 CBC Comment AUTO DIFF Differential Comment AUTO DIFF CONFIRMED Toxic Vacuolation PRESENT Platelet Estimate LOW Platelet Morphology Comment NORMAL Laboratory Tests Test 11/20/16 11/21/16 13:30 06:52 Sodium Level 137 MEQ/L 137 MEQ/L Potassium Level 3.9 MEQ/L 3.8 MEQ/L Chloride Level 100 MEQ/L 99 MEQ/L Carbon Dioxide Level 31.8 MEQ/L 30.4 MEQ/L Anion Gap 5 MEQ/L 8 MEQ/L Blood Urea Nitrogen 36 MG/DL 31 MG/DL Creatinine 0.85 MG/DL 0.79 MG/DL Estimat Glomerular Filtration 68 ML/MIN 74 ML/MIN Rate Random Glucose 290 MG/DL 201 MG/DL Calcium Level 7.3 MG/DL 7.7 MG/DL Protein Corrected Calcium 7.9 MG/DL Phosphorus Level 2.3 MG/DL Magnesium Level 1.9 MG/DL Total Protein 5.9 GM/DL Imaging Last Impressions Chest X-Ray 11/19/16 0600 Signed Impressions: Service Date/Time: Saturday, November 19, 2016 04:28 - CONCLUSION: Bilateral pulmonary hilar vascular congestion is unchanged. Saran Kenyon MD Foot X-Ray 11/12/16 0000 Signed Impressions: Service Date/Time: Saturday, November 12, 2016 15:39 - CONCLUSION: Extensive soft tissue defect/ulceration with soft tissue emphysema and findings concerning for osteomyelitis. Felix Murcia MD Physical Exam GENERAL: Awake and alert, looks dyspneic at rest, on FM SKIN: Cool and dry, no generalized rash MUSCULOSKELETAL: RLE sp BKA, sutures in place, no erythema, + mild edema + mild serosang d/c; but no e/o infx ( no purulence, no erythema) NEUROLOGICAL: Awake and alert. Follows commands. Normal speech Moves all extremities. Assessment & Plan Remarks IMPRESSION MRSA DFI, osteo R foot S/P Chopart in the settings of PVD - failed transmetatarsal amputation - now sp BKA, no e/o ongoing infx - healing might be a problem in this pt with severe PVD Severe unreconstructable PVD Respiratory failure due to CHF, resolved Hypotension, suspected septic shock Multiple med prob including COPD, CHF HIgh grade PCN allergy (anaphylaxis) PLAN dc abx OK to dc from ID [email or web address] Conner,Fiona Tirado MD Nov 21, 2016 14:23
--- NOTE | 2016-11-22 10:07 | HHI.DS ---
Discharge Summary Admission Date Nov 12, 2016 at 17:17 Discharge Date: Nov 21, 2016 Admitting Diagnosis septic shock, osteo (1) Amputation of right lower extremity below knee ICD Code: Z89.511 (2) Demand ischemia ICD Code: I24.8 (3) DM (diabetes mellitus) ICD Code: E11.9 (4) HTN (hypertension) ICD Code: I10 (5) CAD (coronary artery disease) ICD Code: I25.10 (6) Septic shock ICD Code: A41.9 (7) Osteomyelitis of right foot ICD Code: M86.9 (8) Diabetic foot infection ICD Code: E11.69 (9) Methicillin resistant Staphylococcus aureus infection ICD Code: A49.02 (10) Anemia due to acute blood loss ICD Code: D62 Procedures Right below-knee amputation 11/15/16 Brief History - From Admission This is a 60yF with h/o DM, htn, atrial fibrillation and prior transmetatarsal amputation of right foot in 10/2016 for osteomyelitis. She was on outpatient therapy with vancomycin and levaquin through existing RUE PICC line. She presents to the ED with complaints of weakness and right foot pain over the last 2-3 days. She was hypotensive in the emergency department which was only minimally responsive to 30 mL/kg ivf bolus. she was started on Levophed in the emergency department. In the ER, xray of the foot demonstrated gas in the soft tissues, concerning for recurrent, worsening osteomyelitis. When I evaluated the patient, she was somnolent but arousable. However, she was too somnolent to add any additional history and kept falling asleep on my exam. laboratory data is significant for wbc 9.3, hgb 7.9, cr 1.99, lactate 1.3, Trop 0.59. Critical care medicine is consulted to evaluate and manage septic shock in the setting of likely recurrent right foot osteomyelitis. CBC/BMP: 11/21/16 0652 11/21/16 0652 Significant Findings Laboratory Tests Test 11/20/16 11/21/16 13:30 06:52 White Blood Count 12.6 TH/MM3 16.0 TH/MM3 (4.0-11.0) (4.0-11.0) Red Blood Count 2.55 MIL/MM3 3.75 MIL/MM3 (4.00-5.30) (4.00-5.30) Hemoglobin 6.9 GM/DL 10.1 GM/DL (11.6-15.3) (11.6-15.3) Hematocrit 21.6 % 31.9 % (35.0-46.0) (35.0-46.0) Mean Corpuscular Hemoglobin 31.8 % 31.8 % Concent (32.0-36.0) (32.0-36.0) Red Cell Distribution Width 18.6 % 18.1 % (11.6-17.2) (11.6-17.2) Platelet Count 111 TH/MM3 121 TH/MM3 (150-450) (150-450) Blood Urea Nitrogen 36 MG/DL (7-18) 31 MG/DL (7-18) Estimat Glomerular Filtration 68 ML/MIN (>89) 74 ML/MIN (>89) Rate Random Glucose 290 MG/DL 201 MG/DL (74-106) (74-106) Calcium Level 7.3 MG/DL 7.7 MG/DL (8.5-10.1) (8.5-10.1) Protein Corrected Calcium 7.9 MG/DL (8.5-10.1) Phosphorus Level 2.3 MG/DL (2.5-4.9) Total Protein 5.9 GM/DL (6.4-8.2) Neutrophils (%) (Auto) 91.2 % (16.0-70.0) Lymphocytes (%) (Auto) 3.3 % (9.0-44.0) Neutrophils # (Auto) 14.6 TH/MM3 (1.8-7.7) Lymphocytes # (Auto) 0.5 TH/MM3 (1.0-4.8) Toxic Vacuolation PRESENT (NONE SEEN) Platelet Estimate LOW (NORMAL) PE at Discharge GENERAL: NAD SKIN: Warm and dry. HEAD: Normocephalic. EYES: No scleral icterus. No injection or drainage. NECK: Supple, trachea midline. No JVD or lymphadenopathy. CARDIOVASCULAR: Regular rate and rhythm without murmurs, gallops, or rubs. RESPIRATORY: Breath sounds equal bilaterally. No accessory muscle use. GASTROINTESTINAL: Abdomen soft, non-tender, nondistended. MUSCULOSKELETAL: No cyanosis, or edema. s/p Right BKA BACK: Nontender without obvious deformity. No CVA tenderness. Transfer Summary This is a 60yF with h/o DM, htn, atrial fibrillation and prior transmetatarsal amputation of right foot (podiatry Dr. Spaulding) in 10/2016 for osteomyelitis. She was on outpatient therapy with vancomycin and levaquin through existing RUE PICC line. She presents to the ED with complaints of weakness and right foot pain over the last 2-3 days. She was hypotensive in the emergency department which was only minimally responsive to 30 mL/kg ivf bolus. she was started on Levophed in the emergency department. In the ER, xray of the foot demonstrated gas in the soft tissues, concerning for recurrent, worsening osteomyelitis. When I evaluated the patient, she was somnolent but arousable. However, she was too somnolent to add any additional history and kept falling asleep on my exam. laboratory data is significant for wbc 9.3, hgb 7.9, cr 1.99, lactate 1.3, Trop 0.59. Critical care medicine is consulted to evaluate and manage septic shock in the setting of likely recurrent right foot osteomyelitis. 11/13: Patient remains on 3 mics of Levophed for septic shock. Worsening hypoxemic respiratory failure now on BiPAP. Review of previous records indicated that Dr. Cooper has initially recommended right below-knee amputation. Dr. Wheeler was asked to give a second opinion. Patient opted for a limb salvage attempt. ID last admission was Dr. Conner. Right foot x-ray showing probable osteomyelitis. Vascular surgery may need to be re-consulted for right BKA- await ID, podiatry input 11/14: Off all pressors. At this time remains off BiPAP. Patient is agreeable to R below-knee amputation at this time, she spoke to Dr. Cooper 11/15: Patient was seen after right below-knee amputation by Dr. Cooper. Breathing comfortably. Remains off pressors. 11/16: Afebrile. Remains on 8 L simple mask post extubation. Off vasopressors. Very poor appetite. Blood sugars remained in the 200s. 11/17: Afebrile. On 7 L supplemental mask currently. Off vasopressors. Blood sugars in the 300s currently. Noted dressing changes by vascular surgery on Friday plan. 11/18: Resting comfortable in bed. Currently nasal cannula. Denies complaint. Denies chest pain. Did not use BiPAP overnight. SUBJECTIVE: 11/19: Currently on 4 L nasal cannula. Requesting IV pain morphine. Appears couple. Right leg is undressed revealing well-healing stump. Denies chest pain or shortness of breath. Hospital Course metabolic encephalopathy-resolved Depression Diabetic neuropathy /Anxiety Continue Cymbalta 60 mg twice a day, however continue to hold gabapentin 300 mg every 6 hours and tizanidine 4 mg every 8 hours. -- Pain control with morphine BTP, NOrco Q6PRN every 6 when necessary Acute hypoxemic respiratory failure-resolved Atelectasis History of COPD/asthma --s/p Solu-Medrol and continue prednisone 20 mg by mouth twice a day --DuoNeb every 4 hours scheduled and when necessary albuterol nebs every 2 hours --Singular 10 mg by mouth daily --Perform respiratory walk test prior to discharge Olga Lidia status post CABG 2013 Peripheral vascular disease Septic shock-resolved Type II NSTEMI/demand ischemia h/o hypertension Atrial fibrillation - paroxysmal currently in normal sinus rhythm -- continue home amiodarone 200 mg by mouth daily -- Aspirin 81 mg daily -- continue antihypertensives/home medication metoprolol 12.5 twice a day and Imdur 30 mg daily except losartan 25 mg daily. However losartan will be resumed on discharge -- Troponins last one 0.20 secondary to stress and demand ischemia combined with poor renal clearance. -- ECHO- mild LVH. concentric hypertrophy. systolic function severely reduced. EF 25% to 30%. Right ventricle dilated/left atrium dilated --Appreciate input from cardiology Dr. Russo was consulted for non-ST elevation DE Acute kidney injury - improving -- likely secondary to sepsis -- s/p york catheter -- strict i/o's --Monitor urine output and creatinine slowly normalizing MRSA diabetic foot infection Right foot osteomyelitis, cellulitis septic shock -- s/p right BKA by Dr. Wakefield 11/15/16 -- ABX-currently on Daptomycin, status post Aztreonam and Flagyl. -- ID Dr. Conner -- has prior grown PSAE and MRSA in wound. 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 Leukocytosis: Likely secondary to steroid versus infection Anemia of acute blood loss: Status post 1 unit PRBC transfused 11/20/16. H&H stable diabetes mellitus2 Continue with Levemir 26 twice a day and insulin sliding scale Holding home medication Novulin 70/30 30 units twice a day and insulin R sliding -scale. however this would be resuming on discharge History of SLE No current therapy Holding alendronate 70 mg daily for osteoporosis Prophyalxis: -- SQH, SCDs, protonix iv. Pt Condition on Discharge: Stable Discharge Disposition: Discharge to SNF Discharge Time: > 30 minutes Discharge Instructions DIET: Follow Instructions for: Diabetic Diet Activities you can perform: Regular-No Restrictions Follow up Referrals: PCP Follow-up - 2-3 Days Vascular Surgery New Medications: Sennosides-Docusate Sodium (Anali-Colace) 8.6-50 Mg Tab 1 TAB PO BID PRN Constipation #60 Ref 0 TAB Oxycodone-Acetaminophen (Oxycodone-Acetaminophen) 10-325 mg Tab 1 TAB PO Q6H PRN PAIN #20 TAB Prednisone (Prednisone) 20 Mg Tab 20 MG PO BID Breathing Treatment #3 TAB Continued Medications: Alendronate (Alendronate) 70 Mg Tab 70 MG PO Q7D Osteporosis Treatment #4 Ref 0 TAB Amiodarone (Amiodarone) 200 Mg Tab 200 MG PO DAILY Regulate Heart Beat #30 Ref 0 TAB Aspirin (Aspirin) 81 Mg Chew 81 MG PO DAILY Ref 0 TAB Atorvastatin (Lipitor) 40 Mg Tab 40 MG PO HS Cholesterol Management #30 Ref 0 TAB Cholecalciferol (Vitamin D) 5,000 Unit Tab 5000 UNITS PO DAILY Duloxetine DR (Duloxetine DR) 60 Mg Capdr 60 MG PO BID #30 Ref 0 CAP Gabapentin (Gabapentin) 300 Mg Cap 300 MG PO Q6HR #60 Ref 0 CAP Insulin Human Isophane-Regular 70-30 Inj (Novolin 70-30 Inj) 1,000 Unit/10 Ml Vial 30 UNITS SQ BID Blood Sugar Management Ref 0 ML Insulin Human Regular Inj (Novolin R Inj) 1,000 Unit/10 Ml Vial SQ ACHS Sliding Scale As Directed. Blood Sugar Management #10 Ref 0 ML Isosorbide Mononitrate ER (Isosorbide Mononitrate ER) 30 Mg Shonda 30 MG PO DAILY Prevent Chest Pain #30 Ref 0 TAB Losartan (Losartan) 25 Mg Tab 25 MG PO DAILY Blood Pressure Management #30 Ref 0 TAB Metoprolol Tartrate (Metoprolol Tartrate) 25 Mg Tab 12.5 MG PO BID #60 Ref 0 TAB Montelukast (Montelukast) 10 Mg Tab 10 MG PO HS #30 Ref 0 TAB Oxycodone-Acetaminophen (Percocet) 10-325 mg Tab 1 TAB PO QID PAIN Ref 0 TAB Discontinued Medications: Levofloxacin (Levaquin) 750 Mg Tab 750 MG PO Q24H Infection #40 TAB Tizanidine (Tizanidine) 4 Mg Cap 4 MG PO TID Muscle Spasm Ref 0 CAP Jean Aviles MD Nov 22, 2016 10:07
== END 2016-11-21 17:50 | DRG 853 ==
LOC: NEPC 15:13 → NEDA 17:17 → HIMN 21:10 → N04B 11-19 23:26
PROVIDERS: ADMIT Hospitalist; ATTEND Hospitalist
PROC: 5A09357 Assistance with Respiratory Ventilation, Less than 24 Consecutive Hours, Continuous Positive Airway Pressure (ICD-10-PCS; 2016-11-13)
PROC: 0Y6H0Z1 Detachment at Right Lower Leg, High, Open Approach (ICD-10-PCS; principal; 2016-11-15 10:21)
PROC: 30233N1 Transfusion of Nonautologous Red Blood Cells into Peripheral Vein, Percutaneous Approach (ICD-10-PCS; 2016-11-21)
DX: A41.81 Sepsis due to Enterococcus (principal); J96.01 Acute respiratory failure with hypoxia; R65.21 Severe sepsis with septic shock; G93.41 Metabolic encephalopathy; N17.9 Acute kidney failure, unspecified; E11.52 Type 2 diabetes mellitus with diabetic peripheral angiopathy with gangrene; D62 Acute posthemorrhagic anemia; I11.0 Hypertensive heart disease with heart failure; I50.9 Heart failure, unspecified; E86.9 Volume depletion, unspecified; I48.0 Paroxysmal atrial fibrillation; M86.9 Osteomyelitis, unspecified; L03.115 Cellulitis of right lower limb; J98.11 Atelectasis; L97.414 Non-pressure chronic ulcer of right heel and midfoot with necrosis of bone; I24.8 Other forms of acute ischemic heart disease; M32.9 Systemic lupus erythematosus, unspecified; I48.2 Chronic atrial fibrillation; E11.628 Type 2 diabetes mellitus with other skin complications; E11.621 Type 2 diabetes mellitus with foot ulcer; E11.42 Type 2 diabetes mellitus with diabetic polyneuropathy; E11.69 Type 2 diabetes mellitus with other specified complication; E11.65 Type 2 diabetes mellitus with hyperglycemia; J44.9 Chronic obstructive pulmonary disease, unspecified; I25.10 Atherosclerotic heart disease of native coronary artery without angina pectoris; M81.0 Age-related osteoporosis without current pathological fracture; T87.81 Dehiscence of amputation stump; J45.909 Unspecified asthma, uncomplicated; F32.9 Major depressive disorder, single episode, unspecified; F41.9 Anxiety disorder, unspecified; Z16.21 Resistance to vancomycin; Z79.4 Long term (current) use of insulin; Z80.3 Family history of malignant neoplasm of breast; Z80.8 Family history of malignant neoplasm of other organs or systems; Z82.49 Family history of ischemic heart disease and other diseases of the circulatory system; Z83.3 Family history of diabetes mellitus; Z86.14 Personal history of Methicillin resistant Staphylococcus aureus infection; Z87.891 Personal history of nicotine dependence; Z88.0 Allergy status to penicillin; Z88.2 Allergy status to sulfonamides; Z90.13 Acquired absence of bilateral breasts and nipples; Z91.013 Allergy to seafood; Z95.1 Presence of aortocoronary bypass graft
CPT/HCPCS: 36430; 36600; 71010; 73630; 80048; 80053; 80076; 80202; 81001; 82550; 82805; 82948; 83605; 83735; 84100; 84155; 84484; 85007; 85025; 85027; 85610; 86850; 86900; 86901; 86920; 87040; 87070; 87077; 87186; 87205; 87641; 88307; 88311; 93005; 93306; 94002; 94150; 94640; 94664; 94667; 94668; 96374; C9113; J0610; J0878; J1170; J1644; J1815; J2250; J2270; J2370; J2405; J2920; J2930; J3010; J3370; J3475; J7030; J7040; J7050; J7120; J7512; P9016

== ENCOUNTER 2016-12-13 16:08 | Inpatient (IN) | payer OTHER, MEDICARE ==
[~2016-12-13] VITALS: Ht 157.5 cm; Wt 63.2 kg
[~2016-12-13 16:08] MED LIST changes: -DULO1CAP2 PO; +DULO1CAP3 PO; -GETGO ROLLING W1 MI1; -LACTCHW3 CHEW; -LEVA750T PO; +LOSA25TA PO; -LOSA50TA PO; -MIRT30TA PO; +OXYC1TAB36 PO; +PERC10TA27 PO; +PERI8.6T PO; +PRED20 PO; -TIZA4CAP3 PO; -WHEEMIS3
[2016-12-13 16:10] VITALS: BP 92/54; PULSE 102; RESP 18; TEMP 99.5; O2SAT 94
--- NOTE | 2016-12-13 18:39 | PD ---
HPI Chief Complaint: Pain: Acute or Chronic Time Seen by Provider: 18:19 Travel History International Travel<30 days: No Contact w/Intl Traveler<30days: No Traveled to known affect area: No History of Present Illness HPI This 61-year-old female presents to the ER because she is unable to care for herself. She was admitted to the hospital on November 12 with septic shock. The source of the sepsis was her right leg. She has a history of diabetes and had an infection in the leg. She had progressive amputations and had a below-knee amputation. She was transferred to [facility] on November 30. She was released from there yesterday. The home health nurse went to her house today and found that the patient was completely unable to care for herself. Her was unable to assist. The patient is unable to bear weight. She has an amputation of her right leg and her left leg is quite weak. She has a long history of diabetes. She has had coronary bypass surgery. She is having pain in the right leg at the site of the incision and she is also having phantom pain. Besides her diabetes she has history of lupus and osteoporosis as well as coronary artery disease. PFSH Past Medical History Asthma: Yes Autoimmune Disease: Yes (LUPUS) Blood Disorders: No Anxiety: Yes Depression: Yes Heart Rhythm Problems: No Cancer: Yes (HX CINDY MASTECTOMY - NON MALIGNANT - HX FAMILY BREAST CA) Cardiovascular Problems: Yes High Cholesterol: No Chemotherapy: No Chest Pain: No Congestive Heart Failure: No COPD: No Cerebrovascular Accident: No Diabetes: Yes Patient Takes Glucophage: No Endocrine: Yes Gastrointestinal Disorders: Yes (HX FISTULA - COLOSTOMY LEFT UPPER QUAD; ESOPHAGEAL SPASMS) Genitourinary: No Headaches: No Hepatitis: No Hiatal Hernia: No Hypertension: No Immune Disorder: Yes (LUPUS ) Implanted Vascular Access Dvce: Yes Musculoskeletal: Yes (LUPUS - PAIN IN JOINTS/MUSCLE CRAMPS/SPASMS) Neurologic: Yes (DIABETIC NERVE PAIN HANDS & FEET) Psychiatric: Yes Reproductive: No Respiratory: Yes Immunizations Current: Yes Migraines: No Seizures: No Sleep Apnea: No Thyroid Disease: No ?: Not Menopausal: Yes Past Surgical History Abdominal Surgery: Yes (JAMSHID,COLON SX, COLOSTOMY AND REVERSAL; COLOSTOMY 04/15) AICD: No Body Medical Devices: CARDIAC STENTS, BREAST SALINE IMPLANTS Cardiac Surgery: Yes (CARDIAC STENTS X2, CABG 5 vessels ) Endocrine Surgery: No Genitourinary Surgery: Yes (KIDNEY STONES 1985, ESWL) Gynecologic Surgery: Yes (HYSTERECTOMY) Hysterectomy: Yes Joint Replacement: No Neurologic Surgery: No Oral Surgery: Yes (TONSILLECTOMY) Pacemaker: No Thoracic Surgery: No Other Surgery: Yes (right foot toe amputation) Social History Alcohol Use: No Tobacco Use: No Substance Use: No Allergies-Medications (Allergen,Severity, Reaction): Coded Allergies: Bactrim (Verified Allergy, Severe, Shortness of Breath, 12/13/16) Iodine (Verified Allergy, Severe, THROAT SWELLS, 12/13/16) pt states does not have a allergy to Iodine 01/11/16 JF Penicillin (Verified Allergy, Severe, STOPPED BREATHING, 12/13/16) Shellfish (Verified Allergy, Severe, THROAT SWELLS, 12/13/16) *MDRO Multi-Drug Resistant Organism (Verified Adverse Reaction, Unknown, ) 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 Reported Meds & Prescriptions Reported Meds & Active Scripts Active Anali-Colace (Sennosides-Docusate Sodium) 8.6-50 Mg Tab 1 Tab PO BID PRN Prednisone 20 Mg Tab 20 Mg PO BID Oxycodone-Acetaminophen 10-325 mg Tab 1 Tab PO Q6H PRN Reported Losartan (Losartan Potassium) 25 Mg Tab 25 Mg PO DAILY Percocet (Oxycodone-Acetaminophen) 10-325 mg Tab 1 Tab PO QID Metoprolol Tartrate 25 Mg Tab 12.5 Mg PO BID Duloxetine DR (Duloxetine HCl) 60 Mg Capdr 60 Mg PO BID Alendronate (Alendronate Sodium) 70 Mg Tab 70 Mg PO Q7D Isosorbide Mononitrate ER (Isosorbide Mononitrate) 30 Mg Shonda 30 Mg PO DAILY Lipitor (Atorvastatin Calcium) 40 Mg Tab 40 Mg PO HS Vitamin D (Cholecalciferol) 5,000 Unit Tab 5,000 Units PO DAILY Montelukast (Montelukast Sodium) 10 Mg Tab 10 Mg PO HS Novolin 70-30 Inj (Insulin Human Isoph/Insulin Regular) 1,000 Unit/10 Ml Vial 30 Units SQ BID Novolin R Inj (Insulin Human Regular) 1,000 Unit/10 Ml Vial SQ ACHS Sliding Scale As Directed. Gabapentin 300 Mg Cap 300 Mg PO Q6HR Aspirin 81 Mg Chew 81 Mg PO DAILY Amiodarone (Amiodarone HCl) 200 Mg Tab 200 Mg PO DAILY Review of Systems General / Constitutional: No: Fever, Chills Eyes: No: Diploplia, Blurred Vision HENT: No: Headaches Cardiovascular: No: Chest Pain or Discomfort Respiratory: No: Shortness of Breath Gastrointestinal: No: Nausea, Vomiting Genitourinary: No: Urgency, Frequency Musculoskeletal: Positive: Pain Skin: No Rash Neurologic: Positive: Weakness Physical Exam Narrative GENERAL: Well-developed female SKIN: Focused skin assessment warm/dry. HEAD: Atraumatic. Normocephalic. EYES: Pupils equal and round. No scleral icterus. No injection or drainage. ENT: No nasal bleeding or discharge. Mucous membranes pink and moist. NECK: Trachea midline. No JVD. CARDIOVASCULAR: Regular rate and rhythm. No murmur appreciated. RESPIRATORY: No accessory muscle use. Clear to auscultation. Breath sounds equal bilaterally. GASTROINTESTINAL: Abdomen soft, non-tender, nondistended. Hepatic and splenic margins not palpable. MUSCULOSKELETAL: No obvious deformities. No clubbing. No cyanosis. No edema. There are sutures in the stump of the right below-knee amputation. There is no purulent drainage. NEUROLOGICAL: Awake and alert. No obvious cranial nerve deficits. Motor grossly within normal limits. Normal speech. PSYCHIATRIC: Appropriate mood and affect; insight and judgment normal. Data Data Last Documented VS Vital Signs Date Time Temp Pulse Resp B/P Pulse Ox O2 Delivery O2 Flow Rate FiO2 12/13/16 18:43 91 20 146/74 96 12/13/16 16:10 99.5 Orders Complete Blood Count With Diff (12/13/16 18:32) Comprehensive Metabolic Panel (12/13/16 18:32) Urinalysis - C+S If Indicated (12/13/16 18:32) Oxycodone-Acetamin 5-325 Mg (Percocet (12/13/16 18:45) Admit Order (Ed Use Only) (12/13/16 19:05) Labs Laboratory Tests Test 12/13/16 18:40 White Blood Count 9.2 TH/MM3 Red Blood Count 3.43 MIL/MM3 Hemoglobin 9.3 GM/DL Hematocrit 28.6 % Mean Corpuscular Volume 83.4 FL Mean Corpuscular Hemoglobin 27.1 PG Mean Corpuscular Hemoglobin 32.5 % Concent Red Cell Distribution Width 17.3 % Platelet Count 222 TH/MM3 Mean Platelet Volume 6.5 FL Neutrophils (%) (Auto) 62.6 % Lymphocytes (%) (Auto) 19.0 % Monocytes (%) (Auto) 14.1 % Eosinophils (%) (Auto) 0.6 % Basophils (%) (Auto) 3.7 % Neutrophils # (Auto) 5.8 TH/MM3 Lymphocytes # (Auto) 1.7 TH/MM3 Monocytes # (Auto) 1.3 TH/MM3 Eosinophils # (Auto) 0.1 TH/MM3 Basophils # (Auto) 0.3 TH/MM3 CBC Comment DIFF FINAL Differential Comment Sodium Level 142 MEQ/L Potassium Level 4.1 MEQ/L Chloride Level 110 MEQ/L Carbon Dioxide Level 20.3 MEQ/L Anion Gap 12 MEQ/L Blood Urea Nitrogen 48 MG/DL Creatinine 3.90 MG/DL Estimat Glomerular Filtration 12 ML/MIN Rate Random Glucose 101 MG/DL Calcium Level 7.4 MG/DL Protein Corrected Calcium 7.4 MG/DL Total Bilirubin 0.6 MG/DL Aspartate Amino Transf 62 U/L (AST/SGOT) Alanine Aminotransferase 39 U/L (ALT/SGPT) Alkaline Phosphatase 92 U/L Total Protein 7.1 GM/DL Albumin 2.1 GM/DL [facility] Medical Decision Making Medical Screen Exam Complete: Yes Emergency Medical Condition: Yes Medical Record Reviewed: Yes Differential Diagnosis Differential includes generalized weakness, left-sided imbalance, renal insufficiency Narrative Course Routine blood work was done and the creatinine today is 3.9 considerably higher than it has been the past. Diagnosis Primary Impression: Acute kidney injury Arnie Aquino MD December 13, 2016 18:39
[2016-12-13 18:43] VITALS: BP 146/74; PULSE 91; RESP 20; O2SAT 96
[2016-12-13] MEDS ORDERED: oxyCODONE/ACETAMINOPHEN 5 MG/325 MG TAB PO ONE (18:45)
[2016-12-13 18:48] LABS: AUTOMATED NEUTROPHIL # 5.8 TH/MM3 (1.8-7.7); BASOPHIL # 0.3 TH/MM3 (0-0.2); BASOPHIL % 3.7 % (0.0-2.0); EOSINOPHIL # 0.1 TH/MM3 (0-0.4); EOSINOPHIL % 0.6 % (0.0-4.0); HEMATOCRIT 28.6 % (35.0-46.0); HEMO FLAGS DIFF FINAL; LYMPHOCYTE # 1.7 TH/MM3 (1.0-4.8); MEAN CELL VOLUME 83.4 FL (80.0-100.0); MEAN CORPUSCULAR HEMOGLOBIN 27.1 PG (27.0-34.0); MEAN CORPUSCULAR HGB CONC 32.5 % (32.0-36.0); MONO % 14.1 % (0.0-8.0); NEUT % 62.6 % (16.0-70.0); PLATELET COUNT 222 TH/MM3 (150-450); RED BLOOD COUNT 3.43 MIL/MM3 (4.00-5.30); RED CELL DISTRIBUTION WIDTH 17.3 % (11.6-17.2); WHITE BLOOD COUNT 9.2 TH/MM3 (4.0-11.0)
[2016-12-13 19:04] LABS: POTASSIUM 4.1 MEQ/L (3.5-5.1)
[2016-12-13 19:10] VITALS: BP 128/61; PULSE 86; RESP 18; O2SAT 99
[2016-12-13] MEDS ORDERED: ACETAMINOPHEN 325 MG TAB PO PRN (19:30)
[2016-12-13] MEDS ORDERED: SODIUM CHLORIDE 0.9% FLUSH 10 ML FLUSH IV FLUSH PRN (19:30)
[2016-12-13] MEDS ORDERED: GLUCAGON 1 MG/ML VIAL OTHER PRN (19:30)
[2016-12-13] MEDS ORDERED: DEXTROSE 50% IN WATER 50 ML VIAL(D50) IV PUSH PRN (19:30)
[2016-12-13] MEDS ORDERED: ONDANSETRON HCL 4 MG/2 ML VIAL IVP PRN (19:30)
[2016-12-13] MEDS ORDERED: DOCUSATE SODIUM 50 MG/SENNA 8.6 MG TAB PO PRN (19:30)
[2016-12-13] MEDS ORDERED: oxyCODONE/ACETAMINOPHEN 5 MG/325 MG TAB PO PRN (19:30)
[2016-12-13] MEDS ORDERED: BISACODYL 10 MG SUPP RECTAL PRN (19:30)
[2016-12-13] MEDS ORDERED: RESP: ALBUTEROL 2.5 MG/IPRATROPIUM 0.5 MG NEB (PRN) NEB (19:30)
[2016-12-13] MEDS: SODIUM CHLORIDE 0.9% FLUSH 10 ML FLUSH IV FLUSH SCH (19:34)
[2016-12-13] MEDS: SODIUM CHLOR 0.9% 1000 ML INJ 1,000 ML IV SCH (19:43)
[2016-12-13 19:51] LABS: BICARBONATE 20.3 MEQ/L (21.0-32.0); TOTAL BILIRUBIN ADULT 0.6 MG/DL (0.2-1.0)
[2016-12-13 19:53] LABS: CALCIUM-PROTEIN CORRECTED 7.4 MG/DL (8.5-10.1)
[2016-12-13] MEDS ORDERED: CALCIUM GLUCONATE 10% 1 GM/10 ML VIAL IV PUSH ONE (20:30)
[2016-12-13] MEDS: INSULIN HUMAN NPH/R 70/30 1,000 UNITS/10 ML VIAL SQ SCH (21:00)
[2016-12-13 21:19] VITALS: BP 135/73; PULSE 87; RESP 20; TEMP 99; O2SAT 96
[2016-12-13] MEDS: INSULIN ASPART SUPPLEMENTAL SCALE SQ SCH (21:56)
[2016-12-13] MEDS: ATORVASTATIN 40 MG TAB PO SCH (21:57)
[2016-12-13] MEDS: predniSONE 20 MG TAB PO SCH (21:57)
[2016-12-13] MEDS: MONTELUKAST SODIUM 10 MG TAB PO SCH (21:57)
[2016-12-13] MEDS: DULoxetine HCl DR 60 MG CAP PO SCH (21:57)
[2016-12-13] MEDS: oxyCODONE/ACETAMINOPHEN 10 MG/325 MG TAB PO PRN (22:09)
[2016-12-14] MEDS: GABAPENTIN 300 MG CAP PO SCH ×5 (00:20→23:50)
[2016-12-14 00:40] VITALS: BP 140/70; PULSE 77; RESP 18; TEMP 97.7; O2SAT 95
[2016-12-14] MEDS: SODIUM CHLOR 0.9% 1000 ML INJ 1,000 ML IV SCH ×2 (06:07→20:16)
[2016-12-14] MEDS: oxyCODONE/ACETAMINOPHEN 10 MG/325 MG TAB PO PRN ×4 (06:28→23:51)
[2016-12-14] MEDS: INSULIN ASPART SUPPLEMENTAL SCALE SQ SCH ×4 (06:39→21:00)
[2016-12-14 08:00] VITALS: BP 160/83; PULSE 76; RESP 18; TEMP 97.4; O2SAT 98
[2016-12-14] MEDS: predniSONE 20 MG TAB PO SCH ×2 (08:42→21:10)
[2016-12-14] MEDS: AMIODARONE 200 MG TAB PO SCH (08:42)
[2016-12-14] MEDS: LOSARTAN 25 MG TAB PO SCH (08:42)
[2016-12-14] MEDS: DULoxetine HCl DR 60 MG CAP PO SCH (08:43)
[2016-12-14] MEDS: INSULIN HUMAN NPH/R 70/30 1,000 UNITS/10 ML VIAL SQ SCH ×2 (08:50→21:00)
[2016-12-14] MEDS: SODIUM CHLORIDE 0.9% FLUSH 10 ML FLUSH IV FLUSH SCH ×2 (09:00→20:25)
[2016-12-14] MEDS: ASPIRIN 81 MG CHEW TAB PO SCH (09:00)
[2016-12-14 09:15] LABS: CHLORIDE 112 MEQ/L (98-107); POTASSIUM 4.3 MEQ/L (3.5-5.1); SODIUM (NA) 144 MEQ/L (136-145)
[2016-12-14 09:23] LABS: AUTOMATED NEUTROPHIL # 5.5 TH/MM3 (1.8-7.7); BASOPHIL % 0.4 % (0.0-2.0); EOSINOPHIL % 0.7 % (0.0-4.0); HEMATOCRIT 30.2 % (35.0-46.0); LYMPH % 15.5 % (9.0-44.0); LYMPHOCYTE # 1.1 TH/MM3 (1.0-4.8); MEAN CELL VOLUME 85.7 FL (80.0-100.0); MEAN CORPUSCULAR HEMOGLOBIN 25.7 PG (27.0-34.0); MONO % 2.9 % (0.0-8.0); NEUT % 80.5 % (16.0-70.0); PLATELET COUNT 199 TH/MM3 (150-450); RED BLOOD COUNT 3.52 MIL/MM3 (4.00-5.30); RED CELL DISTRIBUTION WIDTH 17.7 % (11.6-17.2); WHITE BLOOD COUNT 6.8 TH/MM3 (4.0-11.0)
[2016-12-14 09:35] LABS: HEMO FLAGS AUTO DIFF
[2016-12-14 10:15] LABS: ANION GAP 12 MEQ/L (5-15); BICARBONATE 19.6 MEQ/L (21.0-32.0)
[2016-12-14 10:17] LABS: BLOOD UREA NITROGEN 49 MG/DL (7-18)
[2016-12-14 10:20] LABS: AST (GOT) 49 U/L (15-37); GLOMERULAR FILTRATION RATE 12 ML/MIN (>89)
[2016-12-14 10:22] LABS: TOTAL BILIRUBIN ADULT 0.7 MG/DL (0.2-1.0)
[2016-12-14 10:23] LABS: ALKALINE PHOSPHATASE 86 U/L (45-117)
[2016-12-14 10:26] LABS: SCAN/DIFF AUTO DIFF CONFIRMED
[2016-12-14 10:27] LABS: ALT (GPT) 36 U/L (10-53)
[2016-12-14 12:00] VITALS: BP 145/88; PULSE 79; RESP 19; TEMP 97.6; O2SAT 97
--- NOTE | 2016-12-14 12:02 | HHI.HP ---
[facility] Physician Alonso Robins MD Admission Diagnosis WEAKNESS, UNABLE TO CARE FOR SELF, DIABETES Diagnoses: Chief Complaint: Fatigue and weakness not able to care for herself Travel History International Travel<30 Days: No Contact w/Intl Traveler <30 Da: No Traveled to Known Affected Are: No History of Present Illness 61 years old female who has an extensive past medical history including recent hospitalization on November 12 for septic shock right leg infection status post BKA ,H/O SLE, breast cancer status post bilateral mastectomy, diabetes mellitus, coronary artery disease status post stenting and CABG 5 vessels, history of hysterectomy, kidney stone, tonsillectomy,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 So patient transferred to ED in ED she was found to have a creatinine of 3 which is above her usual baseline, patient had been on iv antibiotic and status post sepsis and septic shock in the recent hospitalization. Currently she still in pain, no nausea no chest pain no short of breath no fever or chills Review of Systems All systems reviewed and was positive for what is mentioned in history of present illness otherwise negative Past Family Social History Past Medical History As in history of present illness Past Surgical History As in history of present illness Allergies: Coded Allergies: Bactrim (Verified Allergy, Severe, Shortness of Breath, 12/13/16) Iodine (Verified Allergy, Severe, THROAT SWELLS, 12/13/16) pt states does not have a allergy to Iodine 01/11/16 JF Penicillin (Verified Allergy, Severe, STOPPED BREATHING, 12/13/16) Shellfish (Verified Allergy, Severe, THROAT SWELLS, 12/13/16) *MDRO Multi-Drug Resistant Organism (Verified Adverse Reaction, Unknown, ) 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 Family History Positive for diabetes denied CAD Social History Quit smoking over a year ago no alcohol or illicit drug abuse Physical Exam Vital Signs Vital Signs Date Time Temp Pulse Resp B/P Pulse Ox O2 Delivery O2 Flow Rate FiO2 12/14/16 08:00 97.4 76 18 160/83 98 12/14/16 07:28 20 12/14/16 04:00 12/14/16 00:40 97.7 77 18 140/70 95 12/13/16 21:19 99.0 87 20 135/73 96 12/13/16 20:18 18 95 12/13/16 19:43 18 12/13/16 19:10 86 18 128/61 99 Room Air 12/13/16 19:08 86 18 12/13/16 18:43 91 20 146/74 96 12/13/16 16:10 99.5 102 18 92/54 94 Physical Exam - - GENERAL: This is a frail elderly 61 years old female, in pain in the amputation site SKIN: No rashes, warm and dry , multiple skin scars due to previous surgeries on the abdomen on the right flank and chest HEAD: Atraumatic. Normocephalic. EYES: Pupils equal round and reactive. Extraocular motions intact. No scleral icterus. ENT: Nose without bleeding, or drainage, Airway patent. NECK: Trachea midline. Supple CARDIOVASCULAR: Regular rate and rhythm without murmurs, gallops, or rubs. RESPIRATORY: Fair air entry bilaterally. No wheezes, rales, or rhonchi. GASTROINTESTINAL: Abdomen soft, non-tender, nondistended. Positive bowel sounds MUSCULOSKELETAL: Right BKA, still have stitches part of it is slightly erythematous, the left lower extremity with +2 edema NEUROLOGICAL: Awake and alert. Moves all extremity. Normal speech.no focal neurological deficit Laboratory Laboratory Tests Test 12/13/16 12/14/16 18:40 08:15 White Blood Count 9.2 6.8 Red Blood Count 3.43 3.52 Hemoglobin 9.3 9.1 Hematocrit 28.6 30.2 Mean Corpuscular Volume 83.4 85.7 Mean Corpuscular Hemoglobin 27.1 25.7 Mean Corpuscular Hemoglobin 32.5 30.0 Concent Red Cell Distribution Width 17.3 17.7 Platelet Count 222 199 Mean Platelet Volume 6.5 6.8 Neutrophils (%) (Auto) 62.6 80.5 Lymphocytes (%) (Auto) 19.0 15.5 Monocytes (%) (Auto) 14.1 2.9 Eosinophils (%) (Auto) 0.6 0.7 Basophils (%) (Auto) 3.7 0.4 Neutrophils # (Auto) 5.8 5.5 Lymphocytes # (Auto) 1.7 1.1 Monocytes # (Auto) 1.3 0.2 Eosinophils # (Auto) 0.1 0.0 Basophils # (Auto) 0.3 0.0 CBC Comment DIFF FINAL AUTO DIFF Differential Comment AUTO DIFF CONFIRMED Sodium Level 142 144 Potassium Level 4.1 4.3 Chloride Level 110 112 Carbon Dioxide Level 20.3 19.6 Anion Gap 12 12 Blood Urea Nitrogen 48 49 Creatinine 3.90 3.70 Estimat Glomerular Filtration 12 12 Rate Random Glucose 101 81 Calcium Level 7.4 8.0 Protein Corrected Calcium 7.4 Total Bilirubin 0.6 0.7 Aspartate Amino Transf 62 49 (AST/SGOT) Alanine Aminotransferase 39 36 (ALT/SGPT) Alkaline Phosphatase 92 86 Total Protein 7.1 7.1 Albumin 2.1 2.1 Result Diagram: 12/14/1681412/14/16814 Assessment and Plan Assessment and Plan 61 years old female with past medical history of hypertension hyperlipidemia CAD , PAD, status post right BKA came with -Worsening weakness and fatigue and increased creatinine mostly ALFREDO on CKD Will check renal failure panel including renal ultrasound, spot urine protein over creatinine ratio, urine eosinophil Gentle iv fluid with close monitoring of BMP Consult PT OT and protective services case worker for placement -Chronic post amputation pain syndrome: Continue gabapentin and the Cymbalta -History of recent right leg infection status post amputation and septic shock No acute sign of recurrent infection, monitor CBC -Diabetes mellitus with low reading blood glucose Low reading in the 80s, I will reduce her usual 30 units of insulin 70 /30 to 15 units BID, Accu-Chek every 4 hours, A1c this months was 6.9 -History of CHF mostly ischemic, systolic and diastolic EF 25-30% on 2-D echo recently Patient have leg edema however she doesn't seem to be in CHF exacerbation but rather on the core drier side, trial of small volume of free fluid started, check BMP and BNP in a.m. -History of CAD, breast cancer status post surgery, SLE, asthma Resume her medication per med list including amiodarone aspirin losartan gabapentin statin the Loxitane montelukast, prednisone -DVT prophylaxis with heparin and SCD Discussed Condition With Patient and nurse Physician Certification 2 Midnight Certification Type: Admission for Inpatient Services Order for Inpatient Services The services are ordered in accordance with Medicare regulations or non- Medicare payer requirements, as applicable. In the case of services not specified as inpatient-only, they are appropriately provided as inpatient services in accordance with the 2-midnight benchmark. Estimated LOS (days): 2 days is the estimated time the patient will need to remain in the hospital, assuming treatment plan goals are met and no additional complications. Post-Hospital Plan: [facility] Radha Meyers MD December 14, 2016 12:02
[2016-12-14 12:41] LABS: GLUCOSE,URINE NEG (NEG); KETONE, URINE NEG (NEG); NITRITE,URINE NEG (NEG); PH, URINE 5.5 (5.0-8.5)
[2016-12-14 12:45] LABS: BLOOD, URINE MOD (NEG)
[2016-12-14 12:47] LABS: METHOD OF COLLECTION CLEAN CATCH; URINE COLOR YELLOW (YELLW/STRAW)
[2016-12-14 12:48] LABS: COMMENT (UR) CULTURE INDICATED; CULTURE IF INDICATED CULTURE INDICATED
[2016-12-14 16:00] VITALS: BP 131/76; PULSE 79; RESP 18; TEMP 98; O2SAT 93
--- NOTE | 2016-12-14 17:20 | RADHPO ---
EXAM DATE/TIME: 12/14/2016 16:15 [place] COMPARISON: No previous studies available for comparison. INDICATIONS : Abnormal lab values. MEDICAL HISTORY : Lupus. Diabetes. Diabetic nerve pain. Asthma. Renal failure. Kidney stones. Arthritis. Osteoporos is. MRSA. Coronary artery disease. Depression. Anxiety. Blood transfusion. VRE. SURGICAL HISTORY : Coronary artery stent. Cholecystectomy. Hysterectomy. Right below the knee amputation. CABG. Bilatera l mastectomy. Colostomy. Tonsillectomy. ENCOUNTER: Initial ACUITY: 1 day PAIN SCORE: 0/10 LOCATION: Bilateral flank MEASUREMENTS: RIGHT KIDNEY: 11.6 x 6.8 x 5.7 cm LEFT KIDNEY: 12.0 x 6.8 x 6.1 cm FINDINGS: Moderate hydronephrosis is noted bilaterally. The urinary bladder is markedly distended and contains debris. CONCLUSION: Moderate bilateral hydronephrosis and significantly distended urinary bladder with debris. The findi ngs raise the possibility of bladder outlet obstruction. Clinical correlation is recommended. Gage Lubin MD on December 14, 2016 at 17:13 Board Certified Radiologist. This report was verified electronically.
[2016-12-14] MEDS: ATORVASTATIN 40 MG TAB PO SCH (21:10)
[2016-12-14] MEDS: MONTELUKAST SODIUM 10 MG TAB PO SCH (21:10)
[2016-12-14 21:37] VITALS: BP 139/70; PULSE 91; RESP 16; TEMP 97.5; O2SAT 95
[2016-12-15 00:15] VITALS: BP 123/76; PULSE 93; RESP 18; TEMP 97.9; O2SAT 97
[2016-12-15] MEDS: GABAPENTIN 300 MG CAP PO SCH ×3 (05:34→16:16)
[2016-12-15] MEDS: oxyCODONE/ACETAMINOPHEN 10 MG/325 MG TAB PO PRN ×3 (05:34→20:59)
[2016-12-15] MEDS: INSULIN ASPART SUPPLEMENTAL SCALE SQ SCH ×4 (05:37→21:00)
[2016-12-15 06:46] LABS: POTASSIUM 4.3 MEQ/L (3.5-5.1)
[2016-12-15 06:50] LABS: BICARBONATE 20.8 MEQ/L (21.0-32.0)
[2016-12-15 08:00] VITALS: BP 161/91; PULSE 86; RESP 17; TEMP 97.7; O2SAT 94
[2016-12-15] MEDS: SODIUM CHLORIDE 0.9% FLUSH 10 ML FLUSH IV FLUSH SCH ×2 (09:00→20:59)
--- NOTE | 2016-12-15 09:04 | HHI.PR ---
Subjective Remarks Patient still complaining of fatigue and pain she requested increase her pain medication Renal ultrasound showed bilateral hydronephrosis and suggesting bladder outlet obstruction however patient is telling me she never had a problem urinating and she is currently urinating well. No fever or chills Objective Vitals Vital Signs Date Time Temp Pulse Resp B/P Pulse Ox O2 Delivery O2 Flow Rate FiO2 12/15/16 08:00 97.7 86 17 161/91 94 12/15/16 06:34 18 12/15/16 05:24 12/15/16 00:15 97.9 93 18 123/76 97 12/14/16 21:37 97.5 91 16 139/70 95 12/14/16 16:00 98.0 79 18 131/76 93 12/14/16 12:00 97.6 79 19 145/88 97 I/O 12/14/16 12/14/16 12/14/16 12/15/16 12/15/16 12/15/16 06:59 14:59 22:59 06:59 14:59 22:59 Intake Total 750 ml 2946 ml 865 ml Balance 750 ml 2946 ml 865 ml Intake Oral 480 ml IV Total 750 ml 2466 ml 865 ml # Voids 3 1 Result Diagram: 12/14/16 0815 12/15/16 0615 Objective Remarks - - GENERAL: This is a frail elderly 61 years old female, in pain in the amputation site SKIN: No rashes, warm and dry , multiple skin scars due to previous surgeries on the abdomen on the right flank and chest HEAD: Atraumatic. Normocephalic. EYES: Pupils equal round and reactive. Extraocular motions intact. No scleral icterus. ENT: Nose without bleeding, or drainage, Airway patent. NECK: Trachea midline. Supple CARDIOVASCULAR: Regular rate and rhythm without murmurs, gallops, or rubs. RESPIRATORY: Fair air entry bilaterally. No wheezes, rales, or rhonchi. GASTROINTESTINAL: Abdomen soft, non-tender, nondistended. Positive bowel sounds MUSCULOSKELETAL: Right BKA, still have stitches part of it is slightly erythematous, the left lower extremity with +2 edema NEUROLOGICAL: Awake and alert. Moves all extremity. Normal speech.no focal neurological deficit A/P Assessment and Plan 61 years old female with past medical history of hypertension hyperlipidemia CAD , PAD, status post right BKA came with -Worsening weakness and fatigue and increased creatinine ALFREDO -ALFREDO creatinine jumped from 0.79 last month to 3.9 now Renal workup> rare urine eosinophil, increase urine protein /creatinine ratio 0.88, urine random total protein 29, urine random sodium 53 within normal limit. Renal ultrasound showed positive bilateral hydronephrosis suggesting bladder outlet obstruction I will DC iv fluid, considering BMP 1400, consult nephrology and urology, insert Avendano with bladder scan Consult PT OT and case monitor for placement -Chronic post amputation pain syndrome: Continue gabapentin and the Cymbalta -History of recent right leg infection status post amputation and septic shock No acute sign of recurrent infection, monitor CBC -Diabetes mellitus with low reading blood glucose Low reading in the 80s, I will reduce her usual 30 units of insulin 70 /30 to 15 units BID, Accu-Chek every 4 hours, A1c this months was 6.9 -History of CHF mostly ischemic, systolic and diastolic EF 25-30% on 2-D echo recently mngmt as above -History of CAD, breast cancer status post surgery, SLE, asthma Resume her medication per med list including amiodarone aspirin losartan gabapentin statin the Loxitane montelukast, prednisone -DVT prophylaxis with heparin and SCD Radha Meyers MD December 15, 2016 09:04 Radha Meyers MD December 15, 2016 09:04
[2016-12-15] MEDS: AMIODARONE 200 MG TAB PO SCH (09:13)
[2016-12-15] MEDS: predniSONE 20 MG TAB PO SCH ×2 (09:13→20:58)
[2016-12-15] MEDS: ASPIRIN 81 MG CHEW TAB PO SCH (09:15)
[2016-12-15] MEDS: LOSARTAN 25 MG TAB PO SCH (09:15)
[2016-12-15] MEDS: INSULIN HUMAN NPH/R 70/30 1,000 UNITS/10 ML VIAL SQ SCH ×2 (09:17→21:00)
[2016-12-15] MEDS: DULoxetine HCl DR 60 MG CAP PO SCH (10:15)
[2016-12-15 11:15] VITALS: BP 152/78; PULSE 93; RESP 20; O2SAT 99
[2016-12-15 12:00] VITALS: BP 152/72; PULSE 83; RESP 18; TEMP 97.8; O2SAT 99
[2016-12-15 16:00] VITALS: BP 148/77; PULSE 80; RESP 17; TEMP 97.7; O2SAT 96
--- NOTE | 2016-12-15 19:30 | PD.CONS ---
HPI Service Urology Consult Requested By Reason for Consult Retention Primary Care Physician Alonso Robins MD Diagnosis: History of Present Illness 61yo female with PMH of SLE, DM, CAD with CABGx5, colostomy, breast cancer, now admitted with urinary retention and elevated creatinine with evidence of bilateral hydronephrosis on renal ultrasound concerning for bladder outlet obstruction. Patient had a recent Right BKA due to gangrenous wound. Patient reports she had been doing well until recently where she has been progressively feeling weak and fatigued for the last few days. She also reports some pain in the right LE from the amputation. Patient states she had been voiding well without issues until recently. Denies any difficulty in voiding, reporting a good stream without straining, no dysuria, no hematuria. After elvated Cr and findings on renal ultrasound, york catheter was placed with large urine volume return. Since catheter has been placed, overall 3L removed from bladder. Review of Systems ROS Limitations: Clinical Condition Constitutional: DENIES: Fever Endocrine: COMPLAINS OF: Polyuria Eyes: DENIES: Blurred vision Ears, nose, mouth, throat: DENIES: Hearing loss Respiratory: DENIES: Apneas, Cough Cardiovascular: DENIES: Chest pain Gastrointestinal: COMPLAINS OF: Abdominal pain, DENIES: Nausea, Vomiting Genitourinary: DENIES: Urgency, Hematuria, Dysuria Musculoskeletal: COMPLAINS OF: Joint pain Integumentary: DENIES: Rash Hematologic/lymphatic: COMPLAINS OF: Bruising Immunologic/allergic: DENIES: Urticaria Neurologic: DENIES: Headache Psychiatric: DENIES: Anxiety Except as stated in HPI: all other systems reviewed are Neg Past Family Social History Past Medical History DM SLE Breast Cancer CAD Past Surgical History CABGx5 Right BKE amputation Reported Medications Reported Meds & Active Scripts Active Anali-Colace (Sennosides-Docusate Sodium) 8.6-50 Mg Tab 1 Tab PO BID PRN Prednisone 20 Mg Tab 20 Mg PO BID Oxycodone-Acetaminophen 10-325 mg Tab 1 Tab PO Q6H PRN Reported Losartan (Losartan Potassium) 25 Mg Tab 25 Mg PO DAILY Percocet (Oxycodone-Acetaminophen) 10-325 mg Tab 1 Tab PO QID Metoprolol Tartrate 25 Mg Tab 12.5 Mg PO BID Duloxetine DR (Duloxetine HCl) 60 Mg Capdr 60 Mg PO BID Alendronate (Alendronate Sodium) 70 Mg Tab 70 Mg PO Q7D Isosorbide Mononitrate ER (Isosorbide Mononitrate) 30 Mg Shonda 30 Mg PO DAILY Lipitor (Atorvastatin Calcium) 40 Mg Tab 40 Mg PO HS Vitamin D (Cholecalciferol) 5,000 Unit Tab 5,000 Units PO DAILY Montelukast (Montelukast Sodium) 10 Mg Tab 10 Mg PO HS Novolin 70-30 Inj (Insulin Human Isoph/Insulin Regular) 1,000 Unit/10 Ml Vial 30 Units SQ BID Novolin R Inj (Insulin Human Regular) 1,000 Unit/10 Ml Vial SQ ACHS Sliding Scale As Directed. 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 Active Ordered Medications Current Medications Medications (Trade) Dose Ordered Sig/Seng Route Start Time Stop Time Status Last Admin (NS Flush) 2 ml UNSCH PRN IV FLUSH 12/13/16 19:30 (NS Flush) 2 ml BID IV FLUSH 12/13/16 21:00 12/13/16 19:34 (Zofran Inj) 4 mg Q6H PRN IVP 12/13/16 19:30 (Dulcolax Supp) 10 mg DAILY PRN RECTAL 12/13/16 19:30 (Tylenol) 650 mg Q6H PRN PO 12/13/16 19:30 (Percocet 5-325 Mg) 1 tab Q6H PRN PO 12/13/16 19:30 (Percocet 10-325 Mg) 1 tab Q6H PRN PO 12/13/16 19:30 12/15/16 10:18 (D50w (Vial) Inj) 25 ml UNSCH PRN IV PUSH 12/13/16 19:30 (Glucagon Inj) 1 mg UNSCH PRN OTHER 12/13/16 19:30 (Cordarone) 200 mg DAILY PO 12/14/16 09:00 12/15/16 09:13 (Aspirin Chew) 81 mg DAILY PO 12/14/16 09:00 12/15/16 09:15 (Lipitor) 40 mg HS PO 12/13/16 21:00 12/14/16 21:10 (Neurontin) 300 mg Q6HR PO 12/14/16 00:00 12/15/16 16:16 (Cozaar) 25 mg DAILY PO 12/14/16 09:00 12/15/16 09:15 (Singulair) 10 mg HS PO 12/13/16 21:00 12/14/16 21:10 (Deltasone) 20 mg BID PO 12/13/16 21:00 12/15/16 09:13 (Anali-Colace) 1 tab BID PRN PO 12/13/16 19:30 (Cymbalta Dr) 60 mg DAILY PO 12/15/16 09:00 12/15/16 10:15 (NovoLIN 70/30 INJ) 15 units BID SQ 12/14/16 21:00 12/15/16 09:17 Family History Positive for diabetes No urological history Social History Quit smoking over a year ago no alcohol or illicit drug abuse Physical Exam Vital Signs Date Time Temp Pulse Resp B/P Pulse Ox O2 Delivery O2 Flow Rate FiO2 12/15/16 16:00 97.7 80 17 148/77 96 12/15/16 12:00 97.8 83 18 152/72 99 12/15/16 11:18 20 12/15/16 11:15 93 20 152/78 99 12/15/16 08:00 97.7 86 17 161/91 94 12/15/16 05:24 12/15/16 00:15 97.9 93 18 123/76 97 12/14/16 21:37 97.5 91 16 139/70 95 Physical Exam GENERAL: This is a well-nourished, well-developed patient, in no apparent distress. SKIN: No rashes, some ecchymoses UE. Cool and dry. HEAD: Atraumatic. Normocephalic. EYES: Extraocular motions intact. No scleral icterus. No injection or drainage. ENT: Nose without bleeding, purulent drainage. Airway patent. NECK: Trachea midline. No JVD or lymphadenopathy. CARDIOVASCULAR: Normal pulses. RESPIRATORY: Nonlabored GASTROINTESTINAL: Abdomen soft, non-tender, nondistended. GENITOURINARY: York catheter in place, kathya color. No clots MUSCULOSKELETAL: RLE BKE with incision noted, healing with some ecchymosis noted. LLE medial scar NEUROLOGICAL: Awake and alert. Motor and sensory grossly within normal limits. Normal speech. Lab results reviewed: Yes Laboratory Tests Test 12/15/16 06:15 Sodium Level 146 Potassium Level 4.3 Chloride Level 116 Carbon Dioxide Level 20.8 Anion Gap 9 Blood Urea Nitrogen 42 Creatinine 3.00 Estimat Glomerular Filtration 16 Rate Random Glucose 97 Calcium Level 8.0 B-Type Natriuretic Peptide 1476 Date/Time Procedure Status Source Growth 12/14/16 12:30 Urine Culture - Preliminary Resulted Urine Clean Catch IMMATURE GROWTH - REINCUBATE Result Diagram: 12/14/16 0815 12/15/16 0615 Personally reviewed images: Yes Imaging Last Impressions Renal Ultrasound 12/14/16 0000 Signed Impressions: Service Date/Time: Wednesday, December 14, 2016 16:15 - CONCLUSION: Moderate bilateral hydronephrosis and significantly distended urinary bladder with debris. The findings raise the possibility of bladder outlet obstruction. Clinical correlation is recommended. Gage Lubin MD Assessment and Plan Problem List: (1) Diabetes mellitus ICD Code: E11.9 Status: Chronic (2) CAD (coronary artery disease) ICD Code: I25.10 Status: Chronic (3) Acute kidney injury ICD Code: N17.9 Status: Acute (4) HTN (hypertension) ICD Code: I10 Status: Chronic Assessment and Plan -Urinary retention may be neurogenic in origin given her significant PMH and DM -although the patient reports normal voids prior to this, she may have not been completely emptying her bladder -Recommend maintaining york catheter in place for now -UA with culture to rule out infection -After resolution of her acute hospitalization, patient may be discharged with york catheter in place with close follow-up with Urology in clinic for voiding trial -Given her past medical history, unlikely patient adequately empties her bladder , and would likely require further evaluation and management upon Urology follow -up with cystoscopy and urodynamic study -Please call with questions James Mtz MD December 15, 2016 19:30
[2016-12-15 20:54] VITALS: BP 156/83; PULSE 84; RESP 16; TEMP 98; O2SAT 95
[2016-12-15] MEDS: ATORVASTATIN 40 MG TAB PO SCH (20:58)
[2016-12-15] MEDS: MONTELUKAST SODIUM 10 MG TAB PO SCH (20:58)
[2016-12-16] VITALS: BP 164/88; PULSE 93; RESP 18; TEMP 98.1; O2SAT 97
[2016-12-16] MEDS: GABAPENTIN 300 MG CAP PO SCH ×4 (01:39→17:50)
[2016-12-16] MEDS: oxyCODONE/ACETAMINOPHEN 10 MG/325 MG TAB PO PRN ×4 (02:36→20:55)
[2016-12-16] MEDS: INSULIN ASPART SUPPLEMENTAL SCALE SQ SCH ×4 (06:03→21:00)
[2016-12-16 08:00] VITALS: BP 150/85; PULSE 91; RESP 16; TEMP 97.7; O2SAT 96
[2016-12-16] MEDS: LOSARTAN 25 MG TAB PO SCH (08:27)
[2016-12-16] MEDS: predniSONE 20 MG TAB PO SCH (08:27)
[2016-12-16] MEDS: ASPIRIN 81 MG CHEW TAB PO SCH (08:28)
[2016-12-16] MEDS: AMIODARONE 200 MG TAB PO SCH (08:28)
[2016-12-16] MEDS: SODIUM CHLORIDE 0.9% FLUSH 10 ML FLUSH IV FLUSH SCH ×2 (08:29→21:00)
[2016-12-16] MEDS: DULoxetine HCl DR 60 MG CAP PO SCH (08:29)
[2016-12-16] MEDS: INSULIN HUMAN NPH/R 70/30 1,000 UNITS/10 ML VIAL SQ SCH ×2 (08:33→21:00)
[2016-12-16] MEDS ORDERED: PILL SPLITTER OTHER PRN (11:15)
[2016-12-16] MEDS ORDERED: METOPROLOL TARTRATE 25 MG TAB PO SCH (11:30)
--- NOTE | 2016-12-16 11:50 | HHI.PR ---
Subjective Remarks Patient still feeling tired Complain of back pain She told me she hasn't been taking prednisone prior to coming to the hospital so we will stop that Left leg having edema still Stitches was removed from the stump Seen by urologist recommending continuing with Avendano catheter post discharge and to follow as an outpatient With fully patient diuresing much better she put out over 5 L yesterday Objective Vitals Vital Signs Date Time Temp Pulse Resp B/P Pulse Ox O2 Delivery O2 Flow Rate FiO2 12/16/16 08:00 97.7 91 16 150/85 96 12/16/16 04:47 12/16/16 04:08 18 12/16/16 00:00 98.1 93 18 164/88 97 12/15/16 20:54 98.0 84 16 156/83 95 12/15/16 16:00 97.7 80 17 148/77 96 12/15/16 12:00 97.8 83 18 152/72 99 I/O 12/15/16 12/15/16 12/15/16 12/16/16 12/16/16 12/16/16 07:00 15:00 23:00 07:00 15:00 23:00 Intake Total 865 ml 1840 ml Output Total 1350 ml 1001 ml 4000 ml Balance 865 ml -1350 ml -1001 ml -2160 ml Intake Oral 240 ml IV Total 865 ml 1600 ml Output Urine Total 1350 ml 1000 ml 3600 ml Stool Total 1 ml 400 ml Bladder Scan Volume Amount 825 ml # Voids 1 3 Result Diagram: 12/14/16 0815 12/15/1615 Objective Remarks - - GENERAL: This is a frail elderly 61 years old female, in pain in the amputation site SKIN: No rashes, warm and dry , multiple skin scars due to previous surgeries on the abdomen on the right flank and chest HEAD: Atraumatic. Normocephalic. EYES: Pupils equal round and reactive. Extraocular motions intact. No scleral icterus. ENT: Nose without bleeding, or drainage, Airway patent. NECK: Trachea midline. Supple CARDIOVASCULAR: Regular rate and rhythm without murmurs, gallops, or rubs. RESPIRATORY: Fair air entry bilaterally. No wheezes, rales, or rhonchi. GASTROINTESTINAL: Abdomen soft, non-tender, nondistended. Positive bowel sounds MUSCULOSKELETAL: Right BKA, still have stitches part of it is slightly erythematous, the left lower extremity with +2 edema NEUROLOGICAL: Awake and alert. Moves all extremity. Normal speech.no focal neurological deficit A/P Assessment and Plan 61 years old female with past medical history of hypertension hyperlipidemia CAD , PAD, status post right BKA came with -Worsening weakness and fatigue and increased creatinine ALFREDO >>Consult PT OT and caser for placement -ALFREDO creatinine jumped from 0.79 last month to 3.9 >> gradually trending down to 3 today Renal workup> rare urine eosinophil, increase urine protein /creatinine ratio 0.88, urine random total protein 29, urine random sodium 53 within normal limit. Renal ultrasound showed positive bilateral hydronephrosis suggesting bladder outlet obstruction Appreciate urology consultation, agreed with Avendano catheter patient will need urodynamic study as an outpatient when she got discharged Awaiting nephrology consultation, patient has EF of 25-30% with leg edema, repeated BNP today him a short increase from 1402- 2000 Patient will need to be placed on diuretic will wait for nephrology -Hypertension not optimized: Patient on losartan will hold for ALFREDO, will resume beta tomas, start on hydralazine 25 twice a day, monitor blood pressure -Chronic post amputation pain syndrome: Continue gabapentin and the Cymbalta -History of recent right leg infection status post amputation and septic shock No acute sign of recurrent infection, monitor CBC -Diabetes mellitus with low reading blood glucose Low reading in the 80s, I will reduce her usual 30 units of insulin 70 /30 to 15 units BID, Accu-Chek every 4 hours, A1c this months was 6.9 -History of CHF mostly ischemic, systolic and diastolic EF 25-30% on 2-D echo recently BNP trending up, need to place on diuretic once okay with nephrology -History of CAD, breast cancer status post surgery, SLE, asthma Resume her medication per med list including amiodarone aspirin losartan gabapentin statin the Loxitane montelukast, patient has prednisone on her med rec but she hasn't been taken it refuse to take it -DVT prophylaxis with heparin and SCD Discharge Planning Mostly to SNF when cleared by nephrology Radha Meyers MD December 16, 2016 11:50
[2016-12-16 12:00] VITALS: BP 144/77; PULSE 92; RESP 16; TEMP 96.9; O2SAT 100
[2016-12-16 16:00] VITALS: BP 151/70; PULSE 85; RESP 16; TEMP 97.5; O2SAT 97
--- NOTE | 2016-12-16 17:23 | PD.CONS ---
HPI Service Nephrology Consult Requested By Dr. Meyers Reason for Consult Acute renal failure Primary Care Physician Alonso Robins MD History of Present Illness Patient is a 61-year-old female with history of diabetes, SLE, coronary artery disease status post CABG who has the stated that she has some dribbling but otherwise passing urine she had kidney stones in the past the, her creatinine ranges the 0.9- 1.1 in the past 1 month, she was on vancomycin, she said that she had a right below knee amputation 3 weeks ago and the she was still recovering. Patient has some nausea in the past she is feeling better a Avendano catheter was placed ultrasound showed bilateral hydronephrosis, creatinine is declined to 3. Review of Systems Constitutional: COMPLAINS OF: Fatigue Gastrointestinal: COMPLAINS OF: Nausea Genitourinary: COMPLAINS OF: Urinary frequency, Urinary incontinence Musculoskeletal: COMPLAINS OF: Back pain Neurologic: COMPLAINS OF: Abnormal gait Psychiatric: COMPLAINS OF: Anxiety Past Family Social History Allergies: Coded Allergies: Bactrim (Verified Allergy, Severe, Shortness of Breath, 12/13/16) Iodine (Verified Allergy, Severe, THROAT SWELLS, 12/13/16) pt states does not have a allergy to Iodine 01/11/16 JF Penicillin (Verified Allergy, Severe, STOPPED BREATHING, 12/13/16) Shellfish (Verified Allergy, Severe, THROAT SWELLS, 12/13/16) *MDRO Multi-Drug Resistant Organism (Verified Adverse Reaction, Unknown, ) 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 Past Medical History Diabetes Breast cancer Renal insufficiency right below-knee amputation History of smoking Coronary artery disease Hyperlipidemia Peripheral vascular disease Kidney stone 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 Past Surgical History Coronary artery bypass surgery Colostomy Right below knee amputation Bilateral mastectomy Cholecystectomy Reported Medications Reported Meds & Active Scripts Active Anali-Colace (Sennosides-Docusate Sodium) 8.6-50 Mg Tab 1 Tab PO BID PRN Prednisone 20 Mg Tab 20 Mg PO BID Oxycodone-Acetaminophen 10-325 mg Tab 1 Tab PO Q6H PRN Reported Losartan (Losartan Potassium) 25 Mg Tab 25 Mg PO DAILY Percocet (Oxycodone-Acetaminophen) 10-325 mg Tab 1 Tab PO QID Metoprolol Tartrate 25 Mg Tab 12.5 Mg PO BID Duloxetine DR (Duloxetine HCl) 60 Mg Capdr 60 Mg PO BID Alendronate (Alendronate Sodium) 70 Mg Tab 70 Mg PO Q7D Isosorbide Mononitrate ER (Isosorbide Mononitrate) 30 Mg Shonda 30 Mg PO DAILY Lipitor (Atorvastatin Calcium) 40 Mg Tab 40 Mg PO HS Vitamin D (Cholecalciferol) 5,000 Unit Tab 5,000 Units PO DAILY Montelukast (Montelukast Sodium) 10 Mg Tab 10 Mg PO HS Novolin 70-30 Inj (Insulin Human Isoph/Insulin Regular) 1,000 Unit/10 Ml Vial 30 Units SQ BID Novolin R Inj (Insulin Human Regular) 1,000 Unit/10 Ml Vial SQ ACHS Sliding Scale As Directed. Gabapentin 300 Mg Cap 300 Mg PO Q6HR Aspirin 81 Mg Chew 81 Mg PO DAILY Amiodarone (Amiodarone HCl) 200 Mg Tab 200 Mg PO DAILY Active Ordered Medications Current Medications Medications (Trade) Dose Ordered Sig/Seng Route Start Time Stop Time Status Last Admin (NS Flush) 2 ml UNSCH PRN IV FLUSH 12/13/16 19:30 (NS Flush) 2 ml BID IV FLUSH 12/13/16 21:00 12/15/16 20:59 (Zofran Inj) 4 mg Q6H PRN IVP 12/13/16 19:30 (Dulcolax Supp) 10 mg DAILY PRN RECTAL 12/13/16 19:30 (Tylenol) 650 mg Q6H PRN PO 12/13/16 19:30 (Percocet 5-325 Mg) 1 tab Q6H PRN PO 12/13/16 19:30 (Percocet 10-325 Mg) 1 tab Q6H PRN PO 12/13/16 19:30 12/16/16 14:36 (D50w (Vial) Inj) 25 ml UNSCH PRN IV PUSH 12/13/16 19:30 (Glucagon Inj) 1 mg UNSCH PRN OTHER 12/13/16 19:30 (Cordarone) 200 mg DAILY PO 12/14/16 09:00 12/16/16 08:28 (Aspirin Chew) 81 mg DAILY PO 12/14/16 09:00 12/16/16 08:28 (Lipitor) 40 mg HS PO 12/13/16 21:00 12/15/16 20:58 (Neurontin) 300 mg Q6HR PO 12/14/16 00:00 12/16/16 11:04 (Cozaar) 25 mg DAILY PO 12/14/16 09:00 Hold 12/16/16 08:27 (Singulair) 10 mg HS PO 12/13/16 21:00 12/15/16 20:58 (Anali-Colace) 1 tab BID PRN PO 12/13/16 19:30 (Cymbalta Dr) 60 mg DAILY PO 12/15/16 09:00 12/16/16 08:29 (NovoLIN 70/30 INJ) 15 units BID SQ 12/14/16 21:00 12/16/16 08:33 (Pill Splitter) 1 ea UNSCH PRN OTHER 12/16/16 11:15 (Lopressor) 25 mg BID PO 12/16/16 21:00 (Apresoline) 25 mg Q12HR PO 12/16/16 21:00 Family History Family history positive post breast cancer Social History History of smoking which she quit his alcohol intake Physical Exam Vital Signs Vital Signs Date Time Temp Pulse Resp B/P Pulse Ox O2 Delivery O2 Flow Rate FiO2 12/16/16 16:00 97.5 85 16 151/70 97 12/16/16 12:00 96.9 92 16 144/77 100 12/16/16 08:00 97.7 91 16 150/85 96 12/16/16 04:47 12/16/16 04:08 18 12/16/16 00:00 98.1 93 18 164/88 97 12/15/16 20:54 98.0 84 16 156/83 95 Physical Exam GENERAL: Well-nourished, well-developed patient. SKIN: Warm and dry. HEAD: Normocephalic. EYES: No scleral icterus. No injection or drainage. NECK: Supple, trachea midline. No JVD or lymphadenopathy. CARDIOVASCULAR: Regular rate and rhythm without murmurs, gallops, or rubs. RESPIRATORY: Breath sounds equal bilaterally. No accessory muscle use. GASTROINTESTINAL: Abdomen soft, non-tender, nondistended. Colostomy in place EXTREMITIES: No cyanosis, or edema. Right below-knee amputation NEUROLOGICAL: Awake, alert, and oriented x 3. Non-focal. Laboratory Laboratory Tests Test 12/16/16 11:45 B-Type Natriuretic Peptide 2020 Date/Time Procedure Status Source Growth 12/14/16 12:30 Urine Culture - Final Complete Urine Clean Catch 50-100,000 CFU/ML MIXED ALMA... Result Diagram: 12/14/16 0815 12/15/16 0615 Imaging Last Impressions Renal Ultrasound 12/14/16 0000 Signed Impressions: Service Date/Time: Wednesday, December 14, 2016 16:15 - CONCLUSION: Moderate bilateral hydronephrosis and significantly distended urinary bladder with debris. The findings raise the possibility of bladder outlet obstruction. Clinical correlation is recommended. Gage Lubin MD Assessment and Plan Problem List: (1) DM (diabetes mellitus) (2) Acute kidney injury Plan: Patient has some bilateral hydronephrosis and urinary retention which is resolving with Avendano catheter continue to hydrate and I agree she needs a follow -up with urology Her baseline creatinine is within normal range for her and this should resolve with hydration She should be discharged with Avendano catheter to follow up with the urology for urodynamic studies Nephrology to follow as needed (3) Amputation of right lower extremity below knee Plan: Continue to monitor (4) Diabetes mellitus Plan: Blood glucose being monitored Problem Qualifiers (1) Diabetes mellitus: Latoya Landrum MD December 16, 2016 17:23
[2016-12-16 20:00] VITALS: BP 156/64; PULSE 90; RESP 22; TEMP 97.8; O2SAT 97
[2016-12-16] MEDS: hydrALAZINE HCL 25 MG TAB PO SCH (20:54)
[2016-12-16] MEDS: ATORVASTATIN 40 MG TAB PO SCH (20:54)
[2016-12-16] MEDS: MONTELUKAST SODIUM 10 MG TAB PO SCH (20:55)
[2016-12-16] MEDS: METOPROLOL TARTRATE 25 MG TAB PO SCH (20:55)
[2016-12-17] VITALS: BP 138/73; PULSE 77; RESP 18; TEMP 97.6; O2SAT 93
[2016-12-17] MEDS: GABAPENTIN 300 MG CAP PO SCH ×4 (00:37→17:19)
[2016-12-17] MEDS: oxyCODONE/ACETAMINOPHEN 10 MG/325 MG TAB PO PRN ×4 (02:45→21:25)
[2016-12-17] MEDS: INSULIN ASPART SUPPLEMENTAL SCALE SQ SCH ×4 (06:13→21:00)
[2016-12-17 08:00] VITALS: BP 151/73; PULSE 81; RESP 20; TEMP 97.1; O2SAT 100
[2016-12-17 08:07] LABS: POTASSIUM 3.8 MEQ/L (3.5-5.1)
[2016-12-17 08:10] LABS: BICARBONATE 24.5 MEQ/L (21.0-32.0)
--- NOTE | 2016-12-17 08:32 | MB ---
cc: VALE BAUTISTA DATE OF CONSULTATION 12/17/2016 CHIEF COMPLAINT Left hallux ulceration HISTORY OF PRESENT ILLNESS Ms. Finnegan is a 61-year-old female well known to my partner Dr. William Ruiz. She had a below-knee amputation of the right lower extremity after a failed at salvage attempts. This was approximately three to four weeks ago. The patient was readmitted to [facility] with a concern of inability to care for one self as home health felt that she had been progressively weakening at home. She denies any nausea, vomiting, fever, headaches or chills. She had a left ankle fracture, but states she is no longer wearing the Cam boot and believes that it has healed. She states that she has no strength in the left upper or lower leg and has not been able to ambulate even with a walker assistive device since her amputation. PAST MEDICAL HISTORY Includes a history of: 1. Breast cancer 2. Diabetes 3. Coronary artery disease 4. Kidney stones 5. Intestine fistula PAST SURGICAL HISTORY Includes: 1. A below-knee amputation 2. Bilateral mastectomy 3. CABG five vessels 4. Hysterectomy 5. Tonsillectomy 6. Colostomy in the left upper quadrant ALLERGIES BACTRIM, IODINE, PENICILLIN AND SHELLFISH. FAMILY HISTORY Noncontributory SOCIAL HISTORY The patient states she quit smoking over a year ago, but had smoked for 30+ years. She denies any alcohol or illicit drug abuse. PHYSICAL EXAM VITAL SIGNS: Temperature is 97.6 with a T-max of 99.5, pulse 77, respiratory rate 18, blood pressure 138/73, pulse ox 93% O2 on room air. LABORATORY DATA White count 6.8, hemoglobin 9.1, hematocrit 30.2, platelets 199. Blood chemistry labs are pending for this morning. Ankle x-rays are pending. PHYSICAL EXAMINATION On physical exam, the patient has diminished PT and DP pulses. Cap refill time is less than three seconds. The foot feels perfused. The skin is intact with the exception of a small partial thickness ulceration on the dorsal left hallux measuring 4 mm x 4 mm x 0 with a fibrotic base and a large ulceration on the plantar aspect of the hallux measuring 12 mm x 12 mm with varying depth, but central aspect seen, about 3 mm in depth with a fibrogranular base and hypertrophic borders circumferentially. No erythema. No malodor, slight serosanguineous drainage. Heavy callus noted to the plantar fifth metatarsal head. Gross sensation is severely diminished and the muscle strength is severely diminished as well. ASSESSMENT/PLAN 1)Left hallux stage II ulceration Noninfected. -Daily dressing changes with Santyl, orders placed for nursing staff. -The patient's physical therapy is top priority at this time. She is okay to ambulate with the assistance of physical therapy. Pending results of the ankle x-ray, she will benefit from either a Cam boot or a postoperative shoe to protect the ulceration. -We will plan for a light debridement of hypertrophic tissue at bedside in the future. We will continue to monitor while in-house. Vale OSBORNE/COLEEN /8:08 AM /8:17 AM RAMON
[2016-12-17] MEDS: hydrALAZINE HCL 25 MG TAB PO SCH ×3 (08:34→21:02)
[2016-12-17] MEDS: SODIUM CHLORIDE 0.9% FLUSH 10 ML FLUSH IV FLUSH SCH ×2 (08:34→21:03)
[2016-12-17] MEDS: DULoxetine HCl DR 60 MG CAP PO SCH (08:34)
[2016-12-17] MEDS: METOPROLOL TARTRATE 25 MG TAB PO SCH ×2 (08:34→21:02)
[2016-12-17] MEDS: ASPIRIN 81 MG CHEW TAB PO SCH (08:34)
[2016-12-17] MEDS: AMIODARONE 200 MG TAB PO SCH (08:34)
[2016-12-17] MEDS: INSULIN HUMAN NPH/R 70/30 1,000 UNITS/10 ML VIAL SQ SCH ×2 (09:00→21:00)
[2016-12-17] MEDS: COLLAGENASE OINT 30 GM TUBE TOPICAL SCH (11:29)
[2016-12-17 11:50] VITALS: BP 149/77; PULSE 76; RESP 20; TEMP 97.2; O2SAT 100
--- NOTE | 2016-12-17 14:24 | RADHPO ---
EXAM DATE/TIME: 12/17/2016 13:55 [facility] COMPARISON: ANKLE LEFT COMPLETE ([id number]), October 04, 2016, 18:40. INDICATIONS : Left ankle pain x 5 weeks. MEDICAL HISTORY : Diabetes mellitus type II. left ankle fracture SURGICAL HISTORY : None. ENCOUNTER: Initial ACUITY: 1 month PAIN SCORE: 6/10 LOCATION: Left ankle FINDINGS: 3 views of the left ankle reveal an old fracture of the distal fibular metaphysis. There is callus fo rmation seen about the fracture site but a linear lucency remains through the cortex and trabecular b one. There is incomplete union of the fracture fragments. No angulation or distraction. Osteoarthriti s involving the ankle joint. Spurring of the calcaneus. CONCLUSION: Incomplete union of an old fracture involving the distal fibula. No acute fracture. Antwan Apodaca Jr., MD on December 17, 2016 at 14:20 Board Certified Radiologist. This report was verified electronically.
[2016-12-17 16:00] VITALS: BP 153/70; PULSE 86; RESP 19; TEMP 97.3; O2SAT 95
--- NOTE | 2016-12-17 17:40 | HHI.PR ---
Subjective Remarks Patient sitting in bed eating her lunch She still feeling fatigued, pain in her back She is qualified to go to rehabilitation however she doesn't have financial coverage, discussed with the PT he recommended another day or 2 until she is able to go home with possibly home health care physical therapy as a safe discharge. Blood pressure still not optimally controlled, her creatinine improved significantly 1.5 today, BMP dropped to 1120, patient seen by yarn examiner Objective Vitals Vital Signs Date Time Temp Pulse Resp B/P Pulse Ox O2 Delivery O2 Flow Rate FiO2 12/17/16 16:00 97.3 86 19 153/70 95 12/17/16 11:50 97.2 76 20 149/77 100 12/17/16 08:00 97.1 81 20 151/73 100 12/17/16 00:00 97.6 77 18 138/73 93 12/16/16 20:00 97.8 90 22 156/64 97 I/O 12/16/16 12/16/16 12/16/16 12/17/16 12/17/16 12/17/16 07:00 15:00 23:00 07:00 15:00 23:00 Intake Total 1840 ml 690 ml 240 ml 2150 ml Output Total 4000 ml 3025 ml 750 ml 1450 ml 1550 ml Balance -2160 ml -2335 ml -750 ml -1210 ml 600 ml Intake Oral 240 ml 690 ml 240 ml 2150 ml IV Total 1600 ml 0 ml Output Urine Total 3600 ml 3025 ml 750 ml 1450 ml 1550 ml Stool Total 400 ml Bladder Scan Volume Amount 825 ml Result Diagram: 12/14/16 0815 12/17/16 0747 Objective Remarks - - GENERAL: This is a frail elderly 61 years old female, in pain in the amputation site SKIN: No rashes, warm and dry , multiple skin scars due to previous surgeries on the abdomen on the right flank and chest HEAD: Atraumatic. Normocephalic. EYES: Pupils equal round and reactive. Extraocular motions intact. No scleral icterus. ENT: Nose without bleeding, or drainage, Airway patent. NECK: Trachea midline. Supple CARDIOVASCULAR: Regular rate and rhythm without murmurs, gallops, or rubs. RESPIRATORY: Fair air entry bilaterally. No wheezes, rales, or rhonchi. GASTROINTESTINAL: Abdomen soft, non-tender, nondistended. Positive bowel sounds MUSCULOSKELETAL: Right BKA, still have stitches part of it is slightly erythematous, the left lower extremity with +2 edema NEUROLOGICAL: Awake and alert. Moves all extremity. Normal speech.no focal neurological deficit A/P Assessment and Plan 61 years old female with past medical history of hypertension hyperlipidemia CAD , PAD, status post right BKA came with -Worsening weakness and fatigue and increased creatinine ALFREDO >>Consult PT OT and child support case officer for placement -ALFREDO creatinine jumped from 0.79 last month to 3.9 >> gradually trending down to 3 today Renal workup> rare urine eosinophil, increase urine protein /creatinine ratio 0.88, urine random total protein 29, urine random sodium 53 within normal limit. Renal ultrasound showed positive bilateral hydronephrosis suggesting bladder outlet obstruction Appreciate urology consultation, agreed with Avendano catheter patient will need urodynamic study as an outpatient when she got discharged Appreciate nephrology consultation, continue with Avendano and monitoring BMP, patient has EF of 25-30% with leg edema, serial BNP [id number] For now patient continue to diuresis well, creatinine improving, continue monitoring creatinine, starting diuresis when creatinine reach baseline BMP, BNP mag and phosphorus in a.m. -Hypertension not optimized: Patient on losartan will hold for ALFREDO, will resume beta tomas, start on hydralazine 25 twice a day, will increase it to 3 times daily, monitor blood pressure -Chronic post amputation pain syndrome: Continue gabapentin and the Cymbalta -History of recent right leg infection status post amputation and septic shock No acute sign of recurrent infection, monitor CBC -Diabetes mellitus with low reading blood glucose Low reading in the 80s, I will reduce her usual 30 units of insulin 70 /30 to 15 units BID, Accu-Chek every 4 hours, A1c this months was 6.9 -History of CHF mostly ischemic, systolic and diastolic EF 25-30% on 2-D echo recently Management as above -History of CAD, breast cancer status post surgery, SLE, asthma Resume her medication per med list including amiodarone aspirin losartan gabapentin statin the Loxitane montelukast, patient has prednisone on her med rec but she hasn't been taken it refuse to take it -DVT prophylaxis with heparin and SCD Discharge Planning Mostly to SNF when cleared by nephrology Radha Meyers MD December 17, 2016 17:40
[2016-12-17 20:00] VITALS: BP 99/60; PULSE 76; RESP 20; TEMP 97.6; O2SAT 96
[2016-12-17] MEDS: ATORVASTATIN 40 MG TAB PO SCH (21:02)
[2016-12-17] MEDS: MONTELUKAST SODIUM 10 MG TAB PO SCH (21:03)
[2016-12-18] VITALS: BP 108/59; PULSE 70; RESP 20; TEMP 97.5; O2SAT 95
[2016-12-18] MEDS: oxyCODONE/ACETAMINOPHEN 10 MG/325 MG TAB PO PRN ×6 (03:05→22:00)
[2016-12-18] MEDS: GABAPENTIN 300 MG CAP PO SCH ×5 (05:53→23:16)
[2016-12-18] MEDS: hydrALAZINE HCL 25 MG TAB PO SCH ×3 (05:53→21:59)
[2016-12-18] MEDS: INSULIN ASPART SUPPLEMENTAL SCALE SQ SCH ×4 (07:00→21:00)
--- NOTE | 2016-12-18 07:52 | PD.POD ---
Subjective Podiatric Problems Patient states that she is feeling well today but seems lethargic. She refused bandaging to the left toe wound twice yesterday, but states she does not remember doing so. She denies any n/v/f/h/c/sob/pain. Pain score: 0 Past Med/Surg/Social History Social History Smoking Status: Never Smoker Objective Vital Signs Vital Signs Date Time Temp Pulse Resp B/P Pulse Ox O2 Delivery O2 Flow Rate FiO2 12/18/16 00:00 97.5 70 20 108/59 95 12/17/16 20:00 97.6 76 20 99/60 96 12/17/16 16:00 97.3 86 19 153/70 95 12/17/16 11:50 97.2 76 20 149/77 100 12/17/16 08:00 97.1 81 20 151/73 100 Coded Allergies: Bactrim (Verified Allergy, Severe, Shortness of Breath, 12/13/16) Iodine (Verified Allergy, Severe, THROAT SWELLS, 12/13/16) pt states does not have a allergy to Iodine 01/11/16 JF Penicillin (Verified Allergy, Severe, STOPPED BREATHING, 12/13/16) Shellfish (Verified Allergy, Severe, THROAT SWELLS, 12/13/16) *MDRO Multi-Drug Resistant Organism (Verified Adverse Reaction, Unknown, ) 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 Assessment & Plan A/P 1) left foot stage 2 ulceration, non infected -calluses and wound debrided as bedside today -daily dressing changes with Santyl, nurses provided with orders -WBAT in surgical shoe -cont working with PT, bid if possible -ok to d/c from a podiatry standpoint, patient is obviously a placement issue and we will continue to monitor intermittently while in house Nata Spaulding DPM December 18, 2016 07:52
[2016-12-18 08:00] VITALS: BP 142/73; PULSE 80; RESP 19; TEMP 98; O2SAT 96
[2016-12-18] MEDS: AMIODARONE 200 MG TAB PO SCH (08:28)
[2016-12-18] MEDS: SODIUM CHLORIDE 0.9% FLUSH 10 ML FLUSH IV FLUSH SCH ×2 (08:28→21:59)
[2016-12-18] MEDS: DULoxetine HCl DR 60 MG CAP PO SCH (08:29)
[2016-12-18] MEDS: METOPROLOL TARTRATE 25 MG TAB PO SCH ×2 (08:29→21:59)
[2016-12-18] MEDS: COLLAGENASE OINT 30 GM TUBE TOPICAL SCH (08:29)
[2016-12-18] MEDS: ASPIRIN 81 MG CHEW TAB PO SCH (08:29)
[2016-12-18] MEDS: INSULIN HUMAN NPH/R 70/30 1,000 UNITS/10 ML VIAL SQ SCH ×2 (08:29→22:03)
--- NOTE | 2016-12-18 09:28 | HHI.PR ---
Subjective Remarks No distress when seen. She reports that she can still barely stand and is not ambulating well yet. She will need to be functional enough for a return to home with home PT as she does not qualify for SNF placement. Today she is reporting breakthrough pain related to her recent Right BKA and associated neuropathy. Objective Vital Signs Date Time Temp Pulse Resp B/P Pulse Ox O2 Delivery O2 Flow Rate FiO2 12/18/16 08:00 98.0 80 19 142/73 96 12/18/16 00:00 97.5 70 20 108/59 95 12/17/16 20:00 97.6 76 20 99/60 96 12/17/16 16:00 97.3 86 19 153/70 95 12/17/16 11:50 97.2 76 20 149/77 100 I/O 12/17/16 12/17/16 12/17/16 12/18/16 12/18/16 12/18/16 07:00 15:00 23:00 07:00 15:00 23:00 Intake Total 240 ml 2150 ml 240 ml 60 ml Output Total 1450 ml 1550 ml 1275 ml 1300 ml Balance -1210 ml 600 ml -1035 ml -1240 ml Intake Oral 240 ml 2150 ml 240 ml 60 ml IV Total 0 ml 0 ml 0 ml Output Urine Total 1450 ml 1550 ml 1275 ml 1300 ml Bladder Scan Volume Amount 825 ml # Bowel Movements 0 0 Result Diagram: 12/14/1615 12/17/16 0747 Objective Remarks GENERAL: NAD, A&Ox3 SKIN: Warm and dry. HEAD: Normocephalic. EYES: No scleral icterus. No injection or drainage. NECK: Supple, trachea midline. No JVD or lymphadenopathy. CARDIOVASCULAR: Regular rate and rhythm without murmurs, gallops, or rubs. RESPIRATORY: Breath sounds equal bilaterally. No accessory muscle use. GASTROINTESTINAL: Abdomen soft, non-tender, nondistended. MUSCULOSKELETAL: No cyanosis, or edema. Right BKA (compression sock in place) BACK: Nontender without obvious deformity. No CVA tenderness. Medications and IVs Administered Medications Medications (Trade) Dose Ordered Sig/Seng Route PRN Reason Start Time Stop Time Status Last Admin Dose Admin Sodium Chloride (NS Flush) 2 ml BID IV FLUSH 12/13/16 21:00 12/18/16 08:28 Oxycodone/ Acetaminophen (Percocet 10-325 Mg) 1 tab Q6H PRN PO PAIN SCALE 6 TO 10 12/13/16 19:30 12/18/16 08:29 Amiodarone HCl (Cordarone) 200 mg DAILY PO 12/14/16 09:00 12/18/16 08:28 Aspirin (Aspirin Chew) 81 mg DAILY PO 12/14/16 09:00 12/18/16 08:29 Atorvastatin Calcium (Lipitor) 40 mg HS PO 12/13/16 21:00 12/17/16 21:02 Gabapentin (Neurontin) 300 mg Q6HR PO 12/14/16 00:00 12/18/16 05:53 Losartan Potassium (Cozaar) 25 mg DAILY PO 12/14/16 09:00 Hold 12/16/16 08:27 Montelukast Sodium (Singulair) 10 mg HS PO 12/13/16 21:00 12/17/16 21:03 Duloxetine HCl (Cymbalta Dr) 60 mg DAILY PO 12/15/16 09:00 12/18/16 08:29 Insulin Human Isoph/Insulin Regular (NovoLIN 70/30 INJ) 15 units BID SQ 12/14/16 21:00 12/16/16 21:00 Metoprolol Tartrate (Lopressor) 25 mg BID PO 12/16/16 21:00 12/18/16 08:29 Collagenase (Santyl Oint) 1 applic DAILY TOPICAL 12/17/16 09:00 12/18/16 08:29 Hydralazine HCl (Apresoline) 25 mg Q8HR PO 12/17/16 18:00 12/18/16 05:53 A/P Problem List: (1) DM (diabetes mellitus) ICD Code: E11.9 (2) Acute kidney injury ICD Code: N17.9 (3) HTN (hypertension) ICD Code: I10 (4) CAD (coronary artery disease) ICD Code: I25.10 (5) CHF (congestive heart failure) ICD Code: I50.9 Assessment and Plan Assessment and Plan 61 years old female admitted with weakness, ALFREDO on CKD and CHF Exacerbation. Complaint of amputation related pains today. Home dosing of percocet adjusted from q6h to q4h. Continued PT, now BID, to obtain a functional status safe for home discharge. 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
[2016-12-18 12:00] VITALS: BP 132/78; PULSE 77; RESP 18; TEMP 97.8; O2SAT 95
[2016-12-18] MEDS ORDERED: oxyCODONE/ACETAMINOPHEN 5 MG/325 MG TAB PO PRN (12:00)
[2016-12-18 16:00] VITALS: BP 135/81; PULSE 80; RESP 18; TEMP 97.6; O2SAT 96
[2016-12-18 20:00] VITALS: BP 121/65; PULSE 86; RESP 16; TEMP 97.8; O2SAT 96
[2016-12-18] MEDS: ATORVASTATIN 40 MG TAB PO SCH (21:59)
[2016-12-18] MEDS: MONTELUKAST SODIUM 10 MG TAB PO SCH (21:59)
[2016-12-19] VITALS: BP 129/65; PULSE 69; RESP 18; TEMP 97.3; O2SAT 97
[2016-12-19] MEDS: oxyCODONE/ACETAMINOPHEN 10 MG/325 MG TAB PO PRN ×5 (01:59→22:19)
[2016-12-19] MEDS: GABAPENTIN 300 MG CAP PO SCH ×4 (06:35→22:18)
[2016-12-19] MEDS: hydrALAZINE HCL 25 MG TAB PO SCH ×3 (06:35→21:26)
[2016-12-19] MEDS: INSULIN ASPART SUPPLEMENTAL SCALE SQ SCH ×4 (06:38→21:27)
[2016-12-19 07:38] LABS: POTASSIUM 3.5 MEQ/L (3.5-5.1)
[2016-12-19 08:00] VITALS: BP 100/60; PULSE 80; RESP 18; TEMP 97.8; O2SAT 98
[2016-12-19] MEDS: INSULIN HUMAN NPH/R 70/30 1,000 UNITS/10 ML VIAL SQ SCH ×2 (09:00→21:28)
[2016-12-19] MEDS: METOPROLOL TARTRATE 25 MG TAB PO SCH ×2 (09:13→21:26)
[2016-12-19] MEDS: ASPIRIN 81 MG CHEW TAB PO SCH (09:13)
[2016-12-19] MEDS: SODIUM CHLORIDE 0.9% FLUSH 10 ML FLUSH IV FLUSH SCH ×2 (09:13→21:26)
[2016-12-19] MEDS: AMIODARONE 200 MG TAB PO SCH (09:13)
[2016-12-19] MEDS: DULoxetine HCl DR 60 MG CAP PO SCH (09:13)
[2016-12-19] MEDS: COLLAGENASE OINT 30 GM TUBE TOPICAL SCH ×2 (09:13→21:45)
--- NOTE | 2016-12-19 09:47 | HHI.PR ---
Subjective Remarks Still unable to stand. She would not be able to function at home. Her is 89 and unable to care for her. PT and OT are ongoing. She has complaints of pain at her amputation site. Objective Vital Signs Date Time Temp Pulse Resp B/P Pulse Ox O2 Delivery O2 Flow Rate FiO2 12/19/16 00:00 97.3 69 18 129/65 97 12/18/16 20:00 97.8 86 16 121/65 96 12/18/16 16:00 97.6 80 18 135/81 96 12/18/16 12:00 97.8 77 18 132/78 95 I/O 12/18/16 12/18/16 12/18/16 12/19/16 12/19/16 12/19/16 07:00 15:00 23:00 07:00 15:00 23:00 Intake Total 60 ml 660 ml 380 ml Output Total 1300 ml 1025 ml 200 ml Balance -1240 ml -365 ml 180 ml Intake Oral 60 ml 660 ml 380 ml IV Total 0 ml Output Urine Total 1300 ml 1025 ml 200 ml # Bowel Movements 0 0 0 Result Diagram: 12/19/16 0615 Objective Remarks GENERAL: NAD, A&Ox3 SKIN: Warm and dry. HEAD: Normocephalic. EYES: No scleral icterus. No injection or drainage. NECK: Supple, trachea midline. No JVD or lymphadenopathy. CARDIOVASCULAR: Regular rate and rhythm without murmurs, gallops, or rubs. RESPIRATORY: Breath sounds equal bilaterally. No accessory muscle use. GASTROINTESTINAL: Abdomen soft, non-tender, nondistended. MUSCULOSKELETAL: No cyanosis, or edema. Right BKA (compression sock in place) BACK: Nontender without obvious deformity. No CVA tenderness. A/P Problem List: (1) DM (diabetes mellitus) ICD Code: E11.9 (2) Acute kidney injury ICD Code: N17.9 (3) HTN (hypertension) ICD Code: I10 (4) CAD (coronary artery disease) ICD Code: I25.10 (5) CHF (congestive heart failure) ICD Code: I50.9 Assessment and Plan Assessment and Plan 61 years old female admitted with weakness, ALFREDO on CKD and CHF Exacerbation. MS contin added as a detention treatment of her pain. OT and PT continued. 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
[2016-12-19] MEDS ORDERED: MORPHINE SULFATE 15 MG CONTROLLED RELEASE TAB PO ONE (10:00)
[2016-12-19 12:00] VITALS: BP 109/70; PULSE 80; RESP 18; TEMP 97.8; O2SAT 97
[2016-12-19 16:00] VITALS: BP 103/64; PULSE 82; RESP 18; TEMP 97.1; O2SAT 98
[2016-12-19 20:00] VITALS: BP 104/62; PULSE 80; RESP 16; TEMP 97.5; O2SAT 95
[2016-12-19] MEDS: ATORVASTATIN 40 MG TAB PO SCH (21:26)
[2016-12-19] MEDS: MONTELUKAST SODIUM 10 MG TAB PO SCH (21:26)
[2016-12-19] MEDS: MORPHINE SULFATE 15 MG CONTROLLED RELEASE TAB PO SCH (21:29)
[2016-12-20] VITALS: BP 115/73; PULSE 67; RESP 16; TEMP 97.5; O2SAT 97
[2016-12-20] MEDS: oxyCODONE/ACETAMINOPHEN 10 MG/325 MG TAB PO PRN ×5 (02:56→21:28)
[2016-12-20] MEDS: GABAPENTIN 300 MG CAP PO SCH ×4 (06:36→23:52)
[2016-12-20] MEDS: hydrALAZINE HCL 25 MG TAB PO SCH ×3 (06:36→22:00)
[2016-12-20] MEDS: INSULIN ASPART SUPPLEMENTAL SCALE SQ SCH ×4 (06:41→21:28)
[2016-12-20 08:00] VITALS: BP 116/59; PULSE 75; RESP 18; TEMP 98.1; O2SAT 96
[2016-12-20] MEDS: DULoxetine HCl DR 60 MG CAP PO SCH (09:14)
[2016-12-20] MEDS: ASPIRIN 81 MG CHEW TAB PO SCH (09:14)
[2016-12-20] MEDS: AMIODARONE 200 MG TAB PO SCH (09:14)
[2016-12-20] MEDS: METOPROLOL TARTRATE 25 MG TAB PO SCH ×2 (09:14→20:34)
[2016-12-20] MEDS: MORPHINE SULFATE 15 MG CONTROLLED RELEASE TAB PO SCH ×3 (09:15→23:26)
[2016-12-20] MEDS: COLLAGENASE OINT 30 GM TUBE TOPICAL SCH (09:16)
[2016-12-20] MEDS: SODIUM CHLORIDE 0.9% FLUSH 10 ML FLUSH IV FLUSH SCH ×2 (09:16→21:00)
[2016-12-20] MEDS: INSULIN HUMAN NPH/R 70/30 1,000 UNITS/10 ML VIAL SQ SCH ×2 (09:18→21:27)
--- NOTE | 2016-12-20 10:30 | HHI.PR ---
Subjective Remarks Still unable to stand, working with PT and OT. She would not be able to function at home. Catheter removal agreed up for today. Objective Vital Signs Date Time Temp Pulse Resp B/P Pulse Ox O2 Delivery O2 Flow Rate FiO2 12/20/16 08:00 98.1 75 18 116/59 96 12/20/16 00:00 97.5 67 16 115/73 97 12/19/16 20:00 97.5 80 16 104/62 95 12/19/16 16:00 97.1 82 18 103/64 98 12/19/16 12:00 97.8 80 18 109/70 97 I/O 12/19/16 12/19/16 12/19/16 12/20/16 12/20/16 12/20/16 07:00 15:00 23:00 07:00 15:00 23:00 Intake Total 380 ml 240 ml 5043 ml 420 ml Output Total 200 ml 1300 ml 375 ml 350 ml 1300 ml Balance 180 ml -1060 ml 4668 ml 70 ml -1300 ml Intake Oral 380 ml 240 ml 5043 ml 420 ml Output Urine Total 200 ml 1300 ml 375 ml 350 ml 1300 ml # Voids 100 # Bowel Movements 0 0 0 Result Diagram: 12/19/16 0615 Objective Remarks GENERAL: NAD, A&Ox3 SKIN: Warm and dry. HEAD: Normocephalic. EYES: No scleral icterus. No injection or drainage. NECK: Supple, trachea midline. No JVD or lymphadenopathy. CARDIOVASCULAR: Regular rate and rhythm without murmurs, gallops, or rubs. RESPIRATORY: Breath sounds equal bilaterally. No accessory muscle use. GASTROINTESTINAL: Abdomen soft, non-tender, nondistended. MUSCULOSKELETAL: No cyanosis, or edema. Right BKA (compression sock in place) BACK: Nontender without obvious deformity. No CVA tenderness. A/P Problem List: (1) DM (diabetes mellitus) ICD Code: E11.9 (2) Acute kidney injury ICD Code: N17.9 (3) HTN (hypertension) ICD Code: I10 (4) CAD (coronary artery disease) ICD Code: I25.10 (5) CHF (congestive heart failure) ICD Code: I50.9 Assessment and Plan Assessment and Plan 61 years old female admitted with weakness, ALFREDO on CKD and CHF Exacerbation. Avendano catheter removal. OT and PT continuing. 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 Jalen Morrison MD December 20, 2016 10:30
[2016-12-20 12:00] VITALS: BP 109/60; PULSE 80; RESP 18; TEMP 98; O2SAT 96
[2016-12-20 16:00] VITALS: BP 110/61; PULSE 80; RESP 18; TEMP 98; O2SAT 96
[2016-12-20] MEDS: ATORVASTATIN 40 MG TAB PO SCH (20:34)
[2016-12-20] MEDS: MONTELUKAST SODIUM 10 MG TAB PO SCH (20:34)
[2016-12-20 21:12] VITALS: BP 113/57; PULSE 80; RESP 16; TEMP 98.4; O2SAT 98
[2016-12-21] VITALS (13 sets, daily range): BP systolic 82–120; BP diastolic 48–77; PULSE 64–108; RESP 14–22; TEMP 97.9–100.9; O2SAT 74–100
[2016-12-21] MEDS: oxyCODONE/ACETAMINOPHEN 10 MG/325 MG TAB PO PRN ×3 (02:13→18:12)
[2016-12-21] MEDS: GABAPENTIN 300 MG CAP PO SCH ×2 (05:56→12:36)
[2016-12-21] MEDS: hydrALAZINE HCL 25 MG TAB PO SCH ×2 (05:56→13:41)
[2016-12-21] MEDS: INSULIN ASPART SUPPLEMENTAL SCALE SQ SCH ×3 (05:58→16:00)
[2016-12-21] MEDS: MORPHINE SULFATE 15 MG CONTROLLED RELEASE TAB PO SCH (08:41)
[2016-12-21] MEDS: AMIODARONE 200 MG TAB PO SCH (08:42)
[2016-12-21] MEDS: DULoxetine HCl DR 60 MG CAP PO SCH (08:42)
[2016-12-21] MEDS: ASPIRIN 81 MG CHEW TAB PO SCH (08:42)
[2016-12-21] MEDS: METOPROLOL TARTRATE 25 MG TAB PO SCH ×2 (08:42→19:45)
[2016-12-21] MEDS: COLLAGENASE OINT 30 GM TUBE TOPICAL SCH (08:46)
[2016-12-21] MEDS: INSULIN HUMAN NPH/R 70/30 1,000 UNITS/10 ML VIAL SQ SCH (08:46)
[2016-12-21] MEDS: SODIUM CHLORIDE 0.9% FLUSH 10 ML FLUSH IV FLUSH SCH ×2 (08:47→19:45)
--- NOTE | 2016-12-21 11:18 | HHI.PR ---
Subjective Remarks Lethargy this morning. Etiology may be related to MS Contin versus urinary infection. Avoid trial was unsuccessful and catheters replaced this morning. Findings with replacement of catheter show cloudy urine which may indicate infection. Objective Vital Signs Date Time Temp Pulse Resp B/P Pulse Ox O2 Delivery O2 Flow Rate FiO2 12/21/16 08:00 100.9 108 21 98/64 94 12/21/16 06:00 101 115/65 12/21/16 04:38 12/21/16 00:22 97.9 71 18 120/53 96 12/20/16 21:12 98.4 80 16 113/57 98 12/20/16 16:00 98.0 80 18 110/61 96 12/20/16 12:00 98.0 80 18 109/60 96 I/O 12/20/16 12/20/16 12/20/16 12/21/16 12/21/16 12/21/16 07:00 15:00 23:00 07:00 15:00 23:00 Intake Total 420 ml 750 ml Output Total 350 ml 1300 ml 325 ml Balance 70 ml -1300 ml 750 ml -325 ml Intake Oral 420 ml 750 ml Output Urine Total 350 ml 1300 ml 325 ml # Voids 1 4 # Bowel Movements 0 0 Result Diagram: 12/19/16 0615 Objective Remarks GENERAL: NAD, A&Ox3, lethargic but arousable SKIN: Warm and dry. HEAD: Normocephalic. EYES: No scleral icterus. No injection or drainage. NECK: Supple, trachea midline. No JVD or lymphadenopathy. CARDIOVASCULAR: Regular rate and rhythm without murmurs, gallops, or rubs. RESPIRATORY: Breath sounds equal bilaterally. No accessory muscle use. GASTROINTESTINAL: Abdomen soft, non-tender, nondistended. MUSCULOSKELETAL: No cyanosis, or edema. Right BKA (compression sock in place) BACK: Nontender without obvious deformity. No CVA tenderness. A/P Problem List: (1) DM (diabetes mellitus) ICD Code: E11.9 (2) Acute kidney injury ICD Code: N17.9 (3) HTN (hypertension) ICD Code: I10 (4) CAD (coronary artery disease) ICD Code: I25.10 (5) CHF (congestive heart failure) ICD Code: I50.9 Assessment and Plan Assessment and Plan 61 years old female admitted with weakness, ALFREDO on CKD and CHF Exacerbation. Urinary retention remains. Catheter replaced. Urinalysis with culture. Will resume Rocephin if infection is present. MS Contin is decreased to 15 mg by mouth daily. 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 Jalen Morrison MD December 21, 2016 11:18 am
[2016-12-21 11:38] LABS: BLOOD, URINE LARGE (NEG); GLUCOSE,URINE NEG (NEG); KETONE, URINE TRACE mg/dL (NEG); PH, URINE 5.5 (5.0-8.5)
[2016-12-21 11:44] LABS: NITRITE,URINE POS (NEG)
[2016-12-21 11:45] LABS: METHOD OF COLLECTION CATH
[2016-12-21 11:46] LABS: URINE COLOR DARK-BROWN (YELLW/STRAW)
[2016-12-21 11:49] LABS: BACTERIA, URINE FEW /hpf; COMMENT (UR) CATH-CULTURE IND; CULTURE IF INDICATED CATH CULTURE IND; RBC, URINE INNUM /hpf (0-3); WBC, URINE INNUM /hpf (0-5)
[2016-12-21] MEDS ORDERED: SODIUM CHLOR 0.9% 1000 ML INJ 1,000 ML IV ONE (12:15)
[2016-12-21] MEDS ORDERED: MIDODRINE 5 MG TAB PO ONE (12:15)
[2016-12-21] MEDS ORDERED: cefTRIAXone INJ 1,000 MG in SODIUM CHLORIDE 0.9% INJ 100 ML IV SCH (12:15)
[2016-12-21] MEDS ORDERED: NALOXONE HCL 0.4 MG/ML AMP IV PUSH ONE (13:30)
[2016-12-21] MEDS: LEVOFLOXACIN 750 MG PREMIX INJ 150 ML IV SCH (13:43)
[2016-12-21 14:40] LABS: HEMATOCRIT 27.4 % (35.0-46.0); MEAN CELL VOLUME 84.7 FL (80.0-100.0); MEAN CORPUSCULAR HGB CONC 31.9 % (32.0-36.0); PLATELET COUNT 289 TH/MM3 (150-450); RED BLOOD COUNT 3.24 MIL/MM3 (4.00-5.30); RED CELL DISTRIBUTION WIDTH 18.3 % (11.6-17.2); REVIEW FLAG FINAL; WHITE BLOOD COUNT 25.2 TH/MM3 (4.0-11.0)
[2016-12-21 14:55] LABS: POTASSIUM 4.2 MEQ/L (3.5-5.1)
[2016-12-21 14:58] LABS: BICARBONATE 25.8 MEQ/L (21.0-32.0)
[2016-12-21] MEDS ORDERED: TERBUTALINE INJ 1 MG/ML AMP SQ PRN (15:00)
[2016-12-21] MEDS ORDERED: NOREPINEPHRINE-DEXTROSE DRIP 250 ML IV SCH (15:00)
[2016-12-21 16:09] LABS: INTERNATIONAL NORMALIZED RATIO 1.1 RATIO; PROTHROMBIN TIME - PATIENT 11.7 SEC (9.8-11.6)
[2016-12-21] MEDS: VANCOMYCIN INJ 1,000 MG in SODIUM CHLOR 0.9% 250 ML INJ 250 ML IV SCH (16:16)
[2016-12-21] MEDS ORDERED: SODIUM CHLOR 0.9% 1000 ML INJ 1,000 ML, SODIUM CHLOR 0.9% 1000 ML INJ 1,000 ML IV ONE (16:30)
[2016-12-21] MEDS ORDERED: CHLORHEXIDINE GLUCONATE 2 % 1 PACK (2 CLOTHS)(extra cloths) TOPICAL PRN (18:00)
[2016-12-21] MEDS: AZTREONAM INJ 2,000 MG in SODIUM CHLORIDE 0.9% INJ 100 ML IV SCH (18:13)
[2016-12-21] MEDS: ATORVASTATIN 40 MG TAB PO SCH (19:45)
[2016-12-21] MEDS: MONTELUKAST SODIUM 10 MG TAB PO SCH (19:45)
[2016-12-21] MEDS ORDERED: MORPHINE SULFATE 15 MG CONTROLLED RELEASE TAB PO ONE (20:30)
[2016-12-22] VITALS (15 sets, daily range): BP systolic 80–154; BP diastolic 28–75; PULSE 64–80; RESP 13–22; TEMP 97.7–98.5; O2SAT 96–100
[2016-12-22] MEDS: AZTREONAM INJ 2,000 MG in SODIUM CHLORIDE 0.9% INJ 100 ML IV SCH ×3 (01:00→17:42)
[2016-12-22] MEDS: INSULIN ASPART SUPPLEMENTAL SCALE SQ SCH ×5 (02:23→20:20)
[2016-12-22] MEDS: INSULIN HUMAN NPH/R 70/30 1,000 UNITS/10 ML VIAL SQ SCH ×3 (02:24→20:41)
[2016-12-22] MEDS: CHLORHEXIDINE GLUCONATE 2 % 1 PACK (2 CLOTHS)(taper/protocol) TOPICAL SCH (03:44)
[2016-12-22] MEDS: oxyCODONE/ACETAMINOPHEN 10 MG/325 MG TAB PO PRN ×2 (03:44→19:28)
[2016-12-22] MEDS: VANCOMYCIN INJ 1,000 MG in SODIUM CHLOR 0.9% 250 ML INJ 250 ML IV SCH ×2 (03:44→17:25)
[2016-12-22 06:31] LABS: HEMATOCRIT 23.1 % (35.0-46.0); MEAN CELL VOLUME 85.1 FL (80.0-100.0); MEAN CORPUSCULAR HEMOGLOBIN 27.9 PG (27.0-34.0); MEAN CORPUSCULAR HGB CONC 32.8 % (32.0-36.0); PLATELET COUNT 321 TH/MM3 (150-450); RED BLOOD COUNT 2.72 MIL/MM3 (4.00-5.30); RED CELL DISTRIBUTION WIDTH 18.4 % (11.6-17.2); WHITE BLOOD COUNT 18.6 TH/MM3 (4.0-11.0)
[2016-12-22 06:32] LABS: POTASSIUM 4.1 MEQ/L (3.5-5.1); REVIEW FLAG FINAL
[2016-12-22 06:36] LABS: BICARBONATE 25.6 MEQ/L (21.0-32.0)
[2016-12-22] MEDS: MORPHINE SULFATE 15 MG CONTROLLED RELEASE TAB PO SCH (09:00)
--- NOTE | 2016-12-22 09:08 | HHI.PR ---
Subjective Remarks Patient has returned to her baseline status. Yesterday she had onset of septic symptoms secondary to UTI. With antibiotics the symptoms have resolved. Plan to transfer her back out of the ICU today once levothyroxine as weaned off. Objective Vital Signs Date Time Temp Pulse Resp B/P Pulse Ox O2 Delivery O2 Flow Rate FiO2 12/22/16 07:18 97.7 72 16 117/65 99 12/22/16 03:22 70 15 106/47 98 12/22/16 03:16 68 13 86/43 100 12/22/16 03:16 68 13 86/43 100 12/22/16 02:43 66 16 100/43 100 12/22/16 02:28 64 13 101/39 100 12/22/16 02:15 64 14 91/37 100 12/22/16 02:00 66 14 80/28 100 12/22/16 01:00 64 14 82/42 99 12/22/16 00:00 98.4 64 14 91/41 100 12/21/16 22:35 64 16 111/56 12/21/16 22:00 66 15 96/49 100 12/21/16 20:00 98.6 78 22 109/53 74 12/21/16 19:55 99 21 12/21/16 19:30 80 18 115/56 93 12/21/16 19:00 74 14 92/62 99 12/21/16 15:22 98.4 78 22 107/77 100 12/21/16 12:14 98 Nasal Cannula 2.00 12/21/16 12:00 99.5 78 19 82/48 92 12/21/16 11:55 87 21 I/O 12/21/16 12/21/16 12/21/16 12/22/16 12/22/16 12/22/16 07:00 15:00 23:00 07:00 15:00 23:00 Intake Total 350 ml 3744 ml Output Total 325 ml 1725 ml 550 ml Balance -325 ml -1375 ml 3194 ml Intake Oral 350 ml 900 ml IV Total 2844 ml Output Urine Total 325 ml 1525 ml 550 ml Stool Total 200 ml # Voids 4 # Bowel Movements 0 0 1 Result Diagram: 12/22/16 0551 12/22/16 0551 Objective Remarks GENERAL: NAD, A&Ox3, lethargic but arousable SKIN: Warm and dry. HEAD: Normocephalic. EYES: No scleral icterus. No injection or drainage. NECK: Supple, trachea midline. No JVD or lymphadenopathy. CARDIOVASCULAR: Regular rate and rhythm without murmurs, gallops, or rubs. RESPIRATORY: Breath sounds equal bilaterally. No accessory muscle use. GASTROINTESTINAL: Abdomen soft, non-tender, nondistended. MUSCULOSKELETAL: No cyanosis, or edema. Right BKA (compression sock in place) BACK: Nontender without obvious deformity. No CVA tenderness. A/P Problem List: (1) DM (diabetes mellitus) ICD Code: E11.9 (2) Acute kidney injury ICD Code: N17.9 (3) HTN (hypertension) ICD Code: I10 (4) CAD (coronary artery disease) ICD Code: I25.10 (5) CHF (congestive heart failure) ICD Code: I50.9 Assessment and Plan Assessment and Plan 61 years old female admitted with weakness, ALFREDO on CKD and CHF Exacerbation. UTI is being treated with Levaquin. Sepsis is resolved. Transfer out of ICU ( sent for hypotension). When necessary IV morphine added for breakthrough pain. 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 Jalen Morrison MD December 22, 2016 09:08
[2016-12-22] MEDS: METOPROLOL TARTRATE 25 MG TAB PO SCH ×2 (09:17→20:32)
[2016-12-22] MEDS: ASPIRIN 81 MG CHEW TAB PO SCH (09:17)
[2016-12-22] MEDS: AMIODARONE 200 MG TAB PO SCH (09:17)
[2016-12-22] MEDS: COLLAGENASE OINT 30 GM TUBE TOPICAL SCH (09:26)
[2016-12-22] MEDS: SODIUM CHLORIDE 0.9% FLUSH 10 ML FLUSH IV FLUSH SCH ×2 (09:31→20:32)
[2016-12-22] MEDS: LEVOFLOXACIN 750 MG PREMIX INJ 150 ML IV SCH (13:46)
[2016-12-22] MEDS: MORPHINE SULFATE 4 MG/ML INJ IV PUSH PRN ×4 (13:48→23:24)
[2016-12-22] MEDS: ATORVASTATIN 40 MG TAB PO SCH (20:32)
[2016-12-22] MEDS: MONTELUKAST SODIUM 10 MG TAB PO SCH (20:32)
[2016-12-23] VITALS: BP 118/51; PULSE 74; RESP 30; TEMP 98.8; O2SAT 97
[2016-12-23] MEDS: AZTREONAM INJ 2,000 MG in SODIUM CHLORIDE 0.9% INJ 100 ML IV SCH ×3 (00:50→17:12)
[2016-12-23] MEDS: oxyCODONE/ACETAMINOPHEN 10 MG/325 MG TAB PO PRN (01:16)
[2016-12-23] MEDS: MORPHINE SULFATE 4 MG/ML INJ IV PUSH PRN ×6 (02:35→22:34)
[2016-12-23] MEDS: CHLORHEXIDINE GLUCONATE 2 % 1 PACK (2 CLOTHS)(taper/protocol) TOPICAL SCH (03:03)
[2016-12-23] MEDS: VANCOMYCIN INJ 1,000 MG in SODIUM CHLOR 0.9% 250 ML INJ 250 ML IV SCH ×2 (03:11→17:13)
[2016-12-23 04:00] VITALS: BP 105/49; PULSE 66; RESP 14; TEMP 98.5; O2SAT 96
[2016-12-23 05:01] LABS: HEMATOCRIT 22.3 % (35.0-46.0); MEAN CELL VOLUME 86.5 FL (80.0-100.0); MEAN CORPUSCULAR HGB CONC 31.2 % (32.0-36.0); PLATELET COUNT 257 TH/MM3 (150-450); RED BLOOD COUNT 2.57 MIL/MM3 (4.00-5.30); RED CELL DISTRIBUTION WIDTH 18.9 % (11.6-17.2); WHITE BLOOD COUNT 10.7 TH/MM3 (4.0-11.0)
[2016-12-23 05:14] LABS: POTASSIUM 3.9 MEQ/L (3.5-5.1)
[2016-12-23 05:20] LABS: BICARBONATE 27.3 MEQ/L (21.0-32.0)
[2016-12-23 05:21] LABS: REVIEW FLAG FINAL
[2016-12-23] MEDS: INSULIN ASPART SUPPLEMENTAL SCALE SQ SCH ×4 (06:21→20:55)
[2016-12-23] MEDS ORDERED: ACETAMINOPHEN 325 MG TAB PO PRN (07:00)
[2016-12-23] MEDS ORDERED: FUROSEMIDE 20 MG/2 ML VIAL IV PRN (07:00)
[2016-12-23] MEDS ORDERED: SODIUM CHLOR 0.9% 250 ML INJ 250 ML IV ONE (07:00)
[2016-12-23] MEDS ORDERED: diphenhydrAMINE HCL 25 MG CAP PO PRN (07:00)
[2016-12-23 08:00] VITALS: BP 109/52; PULSE 98; RESP 26; TEMP 98.8; O2SAT 95
[2016-12-23] MEDS: METOPROLOL TARTRATE 25 MG TAB PO SCH ×2 (08:43→21:04)
[2016-12-23] MEDS: AMIODARONE 200 MG TAB PO SCH (08:43)
[2016-12-23] MEDS: MORPHINE SULFATE 15 MG CONTROLLED RELEASE TAB PO SCH (08:44)
[2016-12-23] MEDS: INSULIN HUMAN NPH/R 70/30 1,000 UNITS/10 ML VIAL SQ SCH ×2 (08:45→21:13)
[2016-12-23] MEDS: COLLAGENASE OINT 30 GM TUBE TOPICAL SCH (08:47)
[2016-12-23] MEDS: SODIUM CHLORIDE 0.9% FLUSH 10 ML FLUSH IV FLUSH SCH ×2 (08:48→20:54)
--- NOTE | 2016-12-23 08:59 | HHI.PR ---
Subjective Remarks Continues determined a baseline. Hemoglobin level has dropped likely secondary to gross hematuria 2 days ago, which has now resolved. Transfusion of 2 units as ordered. Patient has no complains. Objective Vital Signs Date Time Temp Pulse Resp B/P Pulse Ox O2 Delivery O2 Flow Rate FiO2 12/23/16 05:51 15 12/23/16 04:00 98.5 66 14 105/49 96 12/23/16 02:16 25 12/23/16 00:00 98.8 74 30 118/51 97 12/22/16 20:00 98.5 80 22 128/73 99 12/22/16 19:50 98 21 12/22/16 15:18 98.3 76 15 138/75 100 12/22/16 11:18 98.0 66 17 100/54 100 12/22/16 11:00 76 21 154/59 96 12/22/16 09:26 96 Nasal Cannula 2.00 I/O 12/22/16 12/22/16 12/22/16 12/23/16 12/23/16 12/23/16 07:00 15:00 23:00 07:00 15:00 23:00 Intake Total 3744 ml 859 ml 680 ml 600 ml Output Total 550 ml 2400 ml 340 ml 950 ml Balance 3194 ml -1541 ml 340 ml -350 ml Intake Oral 900 ml 350 ml 480 ml 500 ml IV Total 2844 ml 509 ml 200 ml 100 ml Output Urine Total 550 ml 2400 ml 340 ml 950 ml # Bowel Movements 1 1 Result Diagram: 12/23/16 0425 12/23/16 0425 Objective Remarks GENERAL: NAD, A&Ox3, lethargic but arousable SKIN: Warm and dry. HEAD: Normocephalic. EYES: No scleral icterus. No injection or drainage. NECK: Supple, trachea midline. No JVD or lymphadenopathy. CARDIOVASCULAR: Regular rate and rhythm without murmurs, gallops, or rubs. RESPIRATORY: Breath sounds equal bilaterally. No accessory muscle use. GASTROINTESTINAL: Abdomen soft, non-tender, nondistended. MUSCULOSKELETAL: No cyanosis, or edema. Right BKA (compression sock in place) BACK: Nontender without obvious deformity. No CVA tenderness. A/P Problem List: (1) DM (diabetes mellitus) ICD Code: E11.9 (2) Acute kidney injury ICD Code: N17.9 (3) HTN (hypertension) ICD Code: I10 (4) CAD (coronary artery disease) ICD Code: I25.10 (5) CHF (congestive heart failure) ICD Code: I50.9 Assessment and Plan Assessment and Plan 61 years old female admitted with weakness, ALFREDO on CKD and CHF Exacerbation. UTI is being treated with Levaquin. Sepsis is resolved. Transfer out of ICU today. Transfuse 2 units of blood today for anemia related to hematuria. Hematuria now resolved. Acute blood loss anemia Bleeding appears to have resolved. 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 Jalen Morrison MD December 23, 2016 08:59
[2016-12-23 12:00] VITALS: BP 118/49; PULSE 92; RESP 14; TEMP 99.2; O2SAT 97
[2016-12-23] MEDS: LEVOFLOXACIN 750 MG PREMIX INJ 150 ML IV SCH (12:13)
[2016-12-23 16:00] VITALS: BP 109/75; PULSE 74; RESP 14; TEMP 98.9
[2016-12-23 20:00] VITALS: BP 140/56; PULSE 82; RESP 32; TEMP 99; O2SAT 96
[2016-12-23] MEDS: ATORVASTATIN 40 MG TAB PO SCH (21:04)
[2016-12-23] MEDS: MONTELUKAST SODIUM 10 MG TAB PO SCH (21:04)
[2016-12-24] VITALS: BP 125/65; PULSE 70; RESP 25; TEMP 99.1; O2SAT 97
[2016-12-24] MEDS: oxyCODONE/ACETAMINOPHEN 10 MG/325 MG TAB PO PRN (00:41)
[2016-12-24] MEDS: AZTREONAM INJ 2,000 MG in SODIUM CHLORIDE 0.9% INJ 100 ML IV SCH ×3 (01:27→17:33)
[2016-12-24] MEDS: MORPHINE SULFATE 4 MG/ML INJ IV PUSH PRN ×5 (01:27→20:48)
[2016-12-24 04:00] VITALS: BP 150/64; PULSE 84; RESP 18; TEMP 98.5; O2SAT 95
[2016-12-24] MEDS: CHLORHEXIDINE GLUCONATE 2 % 1 PACK (2 CLOTHS)(taper/protocol) TOPICAL SCH (04:00)
[2016-12-24] MEDS: VANCOMYCIN INJ 1,000 MG in SODIUM CHLOR 0.9% 250 ML INJ 250 ML IV SCH ×2 (04:11→17:33)
[2016-12-24 05:02] LABS: HEMATOCRIT 29.5 % (35.0-46.0); MEAN CELL VOLUME 83.8 FL (80.0-100.0); MEAN CORPUSCULAR HEMOGLOBIN 26.5 PG (27.0-34.0); MEAN CORPUSCULAR HGB CONC 31.6 % (32.0-36.0); PLATELET COUNT 267 TH/MM3 (150-450); RED BLOOD COUNT 3.52 MIL/MM3 (4.00-5.30); RED CELL DISTRIBUTION WIDTH 17.5 % (11.6-17.2); REVIEW FLAG FINAL; WHITE BLOOD COUNT 11.4 TH/MM3 (4.0-11.0)
[2016-12-24 05:35] LABS: POTASSIUM 3.5 MEQ/L (3.5-5.1)
[2016-12-24] MEDS: INSULIN ASPART SUPPLEMENTAL SCALE SQ SCH ×4 (05:55→20:50)
[2016-12-24 08:00] VITALS: BP 157/77; PULSE 88; RESP 18; TEMP 99.7; O2SAT 95
[2016-12-24] MEDS: AMIODARONE 200 MG TAB PO SCH (08:21)
[2016-12-24] MEDS: METOPROLOL TARTRATE 25 MG TAB PO SCH ×2 (08:21→19:53)
[2016-12-24] MEDS: SODIUM CHLORIDE 0.9% FLUSH 10 ML FLUSH IV FLUSH SCH ×2 (08:21→19:54)
[2016-12-24] MEDS: INSULIN HUMAN NPH/R 70/30 1,000 UNITS/10 ML VIAL SQ SCH ×2 (08:21→19:57)
[2016-12-24] MEDS: COLLAGENASE OINT 30 GM TUBE TOPICAL SCH (08:22)
[2016-12-24] MEDS: MORPHINE SULFATE 15 MG CONTROLLED RELEASE TAB PO SCH ×2 (08:28→19:54)
[2016-12-24] MEDS: NITROFURANTOIN MONOHYD MACROCR 100 MG CAP PO SCH ×2 (09:00→17:32)
--- NOTE | 2016-12-24 11:41 | HHI.PR ---
Subjective Remarks Slight leukocytosis remains. Other than this she has full resolution of her UTI symptoms and sepsis. Her primary complaint is now pain again. Global weakness with inability to ambulate remains. No other complaints. Objective Vital Signs Date Time Temp Pulse Resp B/P Pulse Ox O2 Delivery O2 Flow Rate FiO2 12/24/16 08:00 99.7 88 18 157/77 95 12/24/16 04:45 17 12/24/16 04:00 98.5 84 18 150/64 95 12/24/16 01:41 19 12/24/16 00:00 99.1 70 25 125/65 97 12/23/16 20:00 99.0 82 32 140/56 96 12/23/16 16:00 98.9 74 14 109/75 12/23/16 12:00 99.2 92 14 118/49 97 I/O 12/23/16 12/23/16 12/23/16 12/24/16 12/24/16 12/24/16 07:00 15:00 23:00 07:00 15:00 23:00 Intake Total 600 ml 1280 ml 500 ml 770 ml Output Total 950 ml 1800 ml 1275 ml 1500 ml Balance -350 ml -520 ml -775 ml -730 ml Intake Oral 500 ml 480 ml 500 ml IV Total 100 ml 800 ml 770 ml Output Urine Total 950 ml 1800 ml 1275 ml 1500 ml Result Diagram: 12/24/16 0435 12/24/16 0435 Objective Remarks GENERAL: NAD, A&Ox3, lethargic but arousable SKIN: Warm and dry. HEAD: Normocephalic. EYES: No scleral icterus. No injection or drainage. NECK: Supple, trachea midline. No JVD or lymphadenopathy. CARDIOVASCULAR: Regular rate and rhythm without murmurs, gallops, or rubs. RESPIRATORY: Breath sounds equal bilaterally. No accessory muscle use. GASTROINTESTINAL: Abdomen soft, non-tender, nondistended. MUSCULOSKELETAL: No cyanosis, or edema. Right BKA (compression sock in place) BACK: Nontender without obvious deformity. No CVA tenderness. A/P Problem List: (1) DM (diabetes mellitus) ICD Code: E11.9 (2) Acute kidney injury ICD Code: N17.9 (3) HTN (hypertension) ICD Code: I10 (4) CAD (coronary artery disease) ICD Code: I25.10 (5) CHF (congestive heart failure) ICD Code: I50.9 Assessment and Plan Assessment and Plan 61 years old female admitted with weakness, ALFREDO on CKD and CHF Exacerbation. Urine culture shows resistance to Levaquin. Treatment change to nitrofurantoin. Sepsis is resolved. Leukocytosis is improving. Acute blood loss anemia Bleeding appears to have resolved. 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 Jalen Morrison MD December 24, 2016 11:41
[2016-12-24 12:00] VITALS: BP_SYST 118; BP_SYST 140; BP_DIAS 70; BP_DIAS 74; PULSE 70; PULSE 87; RESP 16; RESP 18; TEMP 98; TEMP 98.8; O2SAT 94; O2SAT 95
[2016-12-24] MEDS ORDERED: MORPHINE SULFATE 4 MG/ML INJ IV PUSH ONE (13:30)
[2016-12-24] MEDS: MORPHINE SULFATE 15 MG TAB PO PRN (15:18)
[2016-12-24 16:00] VITALS: BP 138/72; PULSE 82; RESP 18; TEMP 98.4; O2SAT 96
[2016-12-24] MEDS: ATORVASTATIN 40 MG TAB PO SCH (19:53)
[2016-12-24] MEDS: MONTELUKAST SODIUM 10 MG TAB PO SCH (19:53)
[2016-12-24 20:00] VITALS: BP 141/67; PULSE 85; RESP 20; TEMP 99.2; O2SAT 96
[2016-12-25] VITALS: BP 157/83; PULSE 82; RESP 18; TEMP 98.1; O2SAT 94
[2016-12-25] MEDS: MORPHINE SULFATE 15 MG TAB PO PRN ×4 (00:07→22:33)
[2016-12-25] MEDS: MORPHINE SULFATE 4 MG/ML INJ IV PUSH PRN ×3 (01:03→07:04)
[2016-12-25] MEDS: AZTREONAM INJ 2,000 MG in SODIUM CHLORIDE 0.9% INJ 100 ML IV SCH (01:03)
[2016-12-25] MEDS: CHLORHEXIDINE GLUCONATE 2 % 1 PACK (2 CLOTHS)(taper/protocol) TOPICAL SCH (04:00)
[2016-12-25] MEDS: VANCOMYCIN INJ 1,000 MG in SODIUM CHLOR 0.9% 250 ML INJ 250 ML IV SCH (04:02)
[2016-12-25] MEDS: INSULIN ASPART SUPPLEMENTAL SCALE SQ SCH ×4 (06:46→20:27)
[2016-12-25 07:37] LABS: HEMATOCRIT 31.6 % (35.0-46.0); MEAN CELL VOLUME 84.8 FL (80.0-100.0); MEAN CORPUSCULAR HEMOGLOBIN 27.6 PG (27.0-34.0); MEAN CORPUSCULAR HGB CONC 32.6 % (32.0-36.0); PLATELET COUNT 274 TH/MM3 (150-450); RED BLOOD COUNT 3.73 MIL/MM3 (4.00-5.30); RED CELL DISTRIBUTION WIDTH 17.8 % (11.6-17.2); REVIEW FLAG FINAL; WHITE BLOOD COUNT 11.9 TH/MM3 (4.0-11.0)
[2016-12-25 07:48] LABS: POTASSIUM 3.5 MEQ/L (3.5-5.1)
[2016-12-25 07:52] LABS: BICARBONATE 28.1 MEQ/L (21.0-32.0)
[2016-12-25 08:00] VITALS: BP 131/70; PULSE 98; RESP 20; TEMP 98.4; O2SAT 93
[2016-12-25] MEDS: AMIODARONE 200 MG TAB PO SCH (08:59)
[2016-12-25] MEDS: METOPROLOL TARTRATE 25 MG TAB PO SCH ×2 (08:59→20:19)
[2016-12-25] MEDS: MORPHINE SULFATE 15 MG CONTROLLED RELEASE TAB PO SCH (08:59)
[2016-12-25] MEDS: NITROFURANTOIN MONOHYD MACROCR 100 MG CAP PO SCH ×2 (08:59→17:28)
[2016-12-25] MEDS: COLLAGENASE OINT 30 GM TUBE TOPICAL SCH (09:00)
[2016-12-25] MEDS: SODIUM CHLORIDE 0.9% FLUSH 10 ML FLUSH IV FLUSH SCH (09:01)
[2016-12-25] MEDS: INSULIN HUMAN NPH/R 70/30 1,000 UNITS/10 ML VIAL SQ SCH ×2 (09:03→20:26)
--- NOTE | 2016-12-25 09:13 | HHI.PR ---
Subjective Remarks Follow up UTI. Patient is sitting up eating breakfast. Denies any new complaints , no fevers overnight. Remains with slight leukocytosis, will cont to monitor, denies dysuria. Objective Vitals Vital Signs Date Time Temp Pulse Resp B/P Pulse Ox O2 Delivery O2 Flow Rate FiO2 12/25/16 00:00 98.1 82 18 157/83 94 12/24/16 20:00 99.2 85 20 141/67 96 12/24/16 16:00 98.4 82 18 138/72 96 12/24/16 12:00 98.8 87 18 140/74 95 I/O 12/24/16 12/24/16 12/24/16 12/25/16 12/25/16 12/25/16 07:00 15:00 23:00 07:00 15:00 23:00 Intake Total 770 ml 240 ml 1109 ml 620 ml Output Total 1500 ml 2350 ml 1675 ml Balance -730 ml 240 ml -1241 ml -1055 ml Intake Oral 240 ml 720 ml 240 ml IV Total 770 ml 389 ml 380 ml Output Urine Total 1500 ml 2350 ml 1675 ml Result Diagram: 12/25/16 0645 12/25/16 0645 Imaging Last Impressions Ankle X-Ray 12/17/16 0000 Signed Impressions: Service Date/Time: Saturday, December 17, 2016 13:55 - CONCLUSION: Incomplete union of an old fracture involving the distal fibula. No acute fracture. Antwan Apodaca Jr., MD Renal Ultrasound 12/14/16 0000 Signed Impressions: Service Date/Time: Wednesday, December 14, 2016 16:15 - CONCLUSION: Moderate bilateral hydronephrosis and significantly distended urinary bladder with debris. The findings raise the possibility of bladder outlet obstruction. Clinical correlation is recommended. Gage Lubin MD Medications and IVs Current Medications Medications (Trade) Dose Ordered Sig/Seng Route Start Time Stop Time Status Last Admin (NS Flush) 2 ml UNSCH PRN IV FLUSH 12/13/16 19:30 (NS Flush) 2 ml BID IV FLUSH 12/13/16 21:00 12/24/16 19:54 (Zofran Inj) 4 mg Q6H PRN IVP 12/13/16 19:30 (Dulcolax Supp) 10 mg DAILY PRN RECTAL 12/13/16 19:30 (Tylenol) 650 mg Q6H PRN PO 12/13/16 19:30 (D50w (Vial) Inj) 25 ml UNSCH PRN IV PUSH 12/13/16 19:30 (Glucagon Inj) 1 mg UNSCH PRN OTHER 12/13/16 19:30 (Cordarone) 200 mg DAILY PO 12/14/16 09:00 12/24/16 08:21 (Aspirin Chew) 81 mg DAILY PO 12/14/16 09:00 Hold 12/22/16 09:17 (Lipitor) 40 mg HS PO 12/13/16 21:00 12/24/16 19:53 (Neurontin) 300 mg Q6HR PO 12/14/16 00:00 Hold 12/21/16 12:36 (Cozaar) 25 mg DAILY PO 12/14/16 09:00 Hold 12/16/16 08:27 (Singulair) 10 mg HS PO 12/13/16 21:00 12/24/16 19:53 (Anali-Colace) 1 tab BID PRN PO 12/13/16 19:30 (C[address]) 60 mg DAILY PO 12/15/16 09:00 Hold 12/21/16 08:42 (NovoLIN 70/30 INJ) 15 units BID SQ 12/14/16 21:00 12/24/16 19:57 (Pill Splitter) 1 ea UNSCH PRN OTHER 12/16/16 11:15 (Lopressor) 25 mg BID PO 12/16/16 21:00 12/24/16 19:53 (Santyl Oint) 1 applic DAILY TOPICAL 12/17/16 09:00 12/24/16 08:22 (Apresoline) 25 mg Q8HR PO 12/17/16 18:00 Hold 12/21/16 05:56 Oxycodone/ Acetaminophen 1 tab 1 tab Q4HR PRN PO 12/18/16 12:00 (Levophed-Dextrose Drip) 250 ml @ 0 mls/hr TITRATE IV 12/21/16 15:00 12/21/16 16:19 Terbutaline Sulfate 1 mg 1 mg UNSCH PRN SQ 12/21/16 15:00 Vancomycin HCl 1000 mg/Sodium Chloride 250 ml @ 250 mls/hr Q12H IV 12/21/16 16:00 12/25/16 04:02 (Azactam Inj/NS Inj) 100 ml @ 200 mls/hr Q8H IV 12/21/16 17:00 12/25/16 01:03 Miscellaneous Information Patient in critical care unit? Ass... [id number] .[id number] 12/21/16 18:00 12/21/16 18:00 (Chlorhexidine 2% Cloth) 3 pack DAILY@04 TOPICAL 12/22/16 04:00 12/26/16 04:01 12/24/16 04:00 (Chlorhexidine 2% Cloth) 3 pack UNSCH PRN TOPICAL 12/21/16 18:00 12/26/16 17:54 (Morphine Inj) 2 mg Q3H PRN IV PUSH 12/22/16 09:15 12/25/16 07:04 (Macrobid) 100 mg BIDPC PO 12/24/16 09:00 12/30/16 23:00 12/24/16 17:32 (Oramorph Sr) 15 mg Q12HR PO 12/24/16 21:00 12/24/16 19:54 (Msir) 15 mg Q6H PRN PO 12/24/16 13:30 12/25/16 06:46 Urinary Catheter: Yes Assessment to: Continue Avendano insert reason: Prolonged Immobilization Vascular Central Line Catheter: No A/P Assessment and Plan 61 years old female admitted with weakness, ALFREDO on CKD and CHF Exacerbation. Urine culture shows resistance to Levaquin. Treatment change to nitrofurantoin. Sepsis is resolved. Leukocytosis is improving. UTI, culture with Citrobacter Freundii, no fevers, mild leukocytosis -Cont Nitrofurantoin until 12/30 -CBC in AM Acute blood loss anemia, resolved HGB 6.9-->9.3-->10.3 Bleeding appears to have resolved. 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 Pt is unsafe to discharge home, as she is unable to ambulate or transfer, and her spouse is unable to care for her. Jackie Lim December 25, 2016 09:12
[2016-12-25] MEDS ORDERED: MORPHINE SULFATE 15 MG CONTROLLED RELEASE TAB PO ONE (09:30)
[2016-12-25 12:00] VITALS: BP 160/75; PULSE 76; RESP 20; TEMP 97.5; O2SAT 98
[2016-12-25] MEDS ORDERED: MORPHINE SULFATE 4 MG/ML INJ IV PUSH ONE (14:45)
[2016-12-25] MEDS ORDERED: NYSTATIN 100,000 U/GM OINT 15 GM TUBE TOPICAL SCH (16:00)
[2016-12-25 16:05] VITALS: BP 129/75; PULSE 75; RESP 19; TEMP 98.6; O2SAT 99
[2016-12-25 16:12] LABS: HEMOGLOBIN A1a 1.2 %; HEMOGLOBIN A1b 1.6 %; HEMOGLOBIN Ao 85.1 %; HEMOGLOBIN LA1C 2.2 %; HEMOGLOBIN P3 5.2 %
[2016-12-25] MEDS: NYSTATIN 100,000 U/GM OINT 15 GM TUBE TOPICAL SCH ×2 (16:25→20:21)
[2016-12-25] MEDS: GABAPENTIN 300 MG CAP PO SCH (17:28)
[2016-12-25 20:00] VITALS: BP 149/74; PULSE 79; RESP 16; TEMP 98; O2SAT 96
[2016-12-25] MEDS: ATORVASTATIN 40 MG TAB PO SCH (20:18)
[2016-12-25] MEDS: MORPHINE SULFATE 30 MG CONTROLLED RELEASE TAB PO SCH (20:19)
[2016-12-25] MEDS: MONTELUKAST SODIUM 10 MG TAB PO SCH (20:19)
[2016-12-26] MEDS: GABAPENTIN 300 MG CAP PO SCH ×4 (00:49→17:43)
[2016-12-26 04:00] VITALS: BP 102/59; PULSE 77; RESP 16; TEMP 97.1; O2SAT 92
[2016-12-26] MEDS: MORPHINE SULFATE 15 MG TAB PO PRN ×4 (04:33→18:48)
[2016-12-26] MEDS: INSULIN ASPART SUPPLEMENTAL SCALE SQ SCH ×4 (06:05→23:25)
[2016-12-26 08:00] VITALS: BP 113/67; PULSE 84; RESP 16; TEMP 97.4; O2SAT 93
[2016-12-26] MEDS: NITROFURANTOIN MONOHYD MACROCR 100 MG CAP PO SCH ×2 (09:50→17:43)
[2016-12-26] MEDS: MORPHINE SULFATE 30 MG CONTROLLED RELEASE TAB PO SCH ×2 (09:50→20:34)
[2016-12-26] MEDS: LOSARTAN 25 MG TAB PO SCH (09:50)
[2016-12-26] MEDS: DULoxetine HCl DR 60 MG CAP PO SCH (09:50)
[2016-12-26] MEDS: METOPROLOL TARTRATE 25 MG TAB PO SCH ×2 (09:50→20:34)
[2016-12-26] MEDS: AMIODARONE 200 MG TAB PO SCH (09:50)
[2016-12-26] MEDS: ASPIRIN 81 MG CHEW TAB PO SCH (09:50)
[2016-12-26] MEDS: COLLAGENASE OINT 30 GM TUBE TOPICAL SCH (09:51)
[2016-12-26] MEDS: NYSTATIN 100,000 U/GM OINT 15 GM TUBE TOPICAL SCH ×2 (09:51→20:36)
[2016-12-26] MEDS: INSULIN HUMAN NPH/R 70/30 1,000 UNITS/10 ML VIAL SQ SCH ×2 (10:18→17:43)
--- NOTE | 2016-12-26 12:06 | HHI.PR ---
Subjective Remarks Patient seen and examined today in follow-up on unable to care for self at home. Patient indicates that she is actually feeling better now that her peripheral neuropathy medication has been started. When discussing with her pain control, she is actually open to the idea of returning back to her previous pain medication of Percocet 10. I counseled her significantly on diabetes and the need to follow appropriate diet. Apparently, patient had significant issues when her diet was changed to a diabetic diet. She was manipulative, demanding and so that she will not eat a diabetic diet that she will only eat a regular diet. I counseled her that with her eating a regular diet and be more difficult to manage her diabetes and that we'll have to go up on her insulin adjusted more often to get control of her diabetes. She does understand and does not care about the insulin she only wants to have food. Objective Vitals Vital Signs Date Time Temp Pulse Resp B/P Pulse Ox O2 Delivery O2 Flow Rate FiO2 12/26/16 10:50 18 12/26/16 05:33 16 12/26/16 04:00 97.1 77 16 102/59 92 12/26/16 02:41 16 12/25/16 20:00 98.0 79 16 149/74 96 12/25/16 16:05 98.6 75 19 129/75 99 12/25/16 15:34 18 12/25/16 12:00 97.5 76 20 160/75 98 I/O 12/25/16 12/25/16 12/25/16 12/26/16 12/26/16 12/26/16 07:00 15:00 23:00 07:00 15:00 23:00 Intake Total 620 ml 600 ml 1230 ml 660 ml Output Total 1675 ml 950 ml 1000 ml 1000 ml Balance -1055 ml -350 ml 230 ml -340 ml Intake Oral 240 ml 600 ml 1230 ml 660 ml IV Total 380 ml Output Urine Total 1675 ml 950 ml 1000 ml 1000 ml Stool Total 0 ml # Voids 2 # Bowel Movements 0 1 0 Result Diagram: 12/25/16 0645 12/25/16 0645 Objective Remarks GENERAL: Well-developed, well-nourished, in no acute distress. alert and orientated HEENT: Head is normocephalic without any lesions or masses noted. Facial features are symmetric. Eyes: Extraocular muscles are intact. Conjunctivae were clear. NECK: Supple without any masses. Trachea midline no deviation. No JVD, CARDIAC: Regular rhythm, regular rate. S1/S2 are heard. No murmurs gallops or rubs. LUNGS: Clear to auscultation bilaterally. No wheeze, rhonchi or rales. No use of accessory muscles on inspiration or expiration. ABDOMEN: Soft, nontender. Nondistended. Bowel sounds heard in all 4 quadrants. No organomegaly or masses. Negative rebound, negative guarding EXTREMITIES: No edema, pulses are equal bilaterally. No cyanosis or clubbing. 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 Left lower extremity has fracture boot NEUROLOGY: Mood and affect appear appropriate. Cranial nerves II through XII grossly intact. 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, r/t Diabetic Neuropathy, with inability to take care of self at home Continue physical therapy Continue case management for discharge planning Pain control Resume gabapentin, Cymbalta Oramorph SR 30 mg every 12 hours Percocet 5/325 one tab every 4 hours as needed for pain 35, will change that every 6 hours Morphine sulfate 15 mg every 6 hours as needed for pain greater than 5 Sepsis with urinary tract infection, resolved Patient stable this time, no longer febrile, leukocytosis resolved Urinary culture with Citrobacter freundii Nitroglycerin Furadantin until 12/30/16 Acute blood loss anemia, resolved Hemoglobin stable Status post transfusion 2 units packed red blood cells 12/23 Acute kidney injury, resolved Renal functions have returned to normal Avoid nephrotoxins Chronic systolic/diastolic congestive heart failure Recent echocardiogram indicates ejection fraction 2530 percent Continue metoprolol, Cozaar 1500 mL fluid restriction Hypertension, coronary disease Blood pressure stable Continue blood pressure medication and just as needed Diabetes type 2 with peripheral neuropathy, long-term use insulin Human insulin 70/30, 15 units twice daily. Increase to 18 units at 0800, continue 15 units at 1700 Accu-Cheks with sliding scale insulin, patient has only required 3 units of insulin daily Patient will not follow diabetic diet, despite extensive counseling on diabetic management. We'll need to adjust insulin periodically PAD, Hyperlipidemia, Hx of Breast Cancer,SLE,Asthma, chronic and stable No change to baseline treatments, Follow clinically DVT prophylaxis heparin and SCD Discharge Planning Complicated discharge. Case management managing discharge planning. Apparently patient has used a rehabilitation center benefits without co-pay. Patient does not have the funds for a co-pay. Patient will remain in hospital until she is able to function at home or until case management can arrange other discharge planning Baldemar Black December 26, 2016 12:06
[2016-12-26] MEDS ORDERED: INSULIN HUMAN NPH/R 70/30 1,000 UNITS/10 ML VIAL SQ SCH (17:00)
[2016-12-26 20:00] VITALS: BP 105/57; PULSE 89; RESP 19; TEMP 96.4; O2SAT 97
[2016-12-26] MEDS: ATORVASTATIN 40 MG TAB PO SCH (20:34)
[2016-12-26] MEDS: MONTELUKAST SODIUM 10 MG TAB PO SCH (20:34)
[2016-12-27] MEDS: GABAPENTIN 300 MG CAP PO SCH ×4 (01:03→16:18)
[2016-12-27] MEDS: MORPHINE SULFATE 15 MG TAB PO PRN ×3 (01:04→16:19)
[2016-12-27] MEDS: INSULIN ASPART SUPPLEMENTAL SCALE SQ SCH ×4 (07:00→21:00)
[2016-12-27 08:00] VITALS: BP 94/66; PULSE 82; RESP 18; TEMP 98; O2SAT 93
[2016-12-27] MEDS ORDERED: INSULIN HUMAN NPH/R 70/30 1,000 UNITS/10 ML VIAL SQ SCH (08:00)
[2016-12-27] MEDS: INSULIN HUMAN NPH/R 70/30 1,000 UNITS/10 ML VIAL SQ SCH ×2 (08:00→16:18)
[2016-12-27] MEDS: COLLAGENASE OINT 30 GM TUBE TOPICAL SCH (09:00)
[2016-12-27] MEDS: NYSTATIN 100,000 U/GM OINT 15 GM TUBE TOPICAL SCH ×2 (10:05→21:06)
[2016-12-27] MEDS: DULoxetine HCl DR 60 MG CAP PO SCH (10:09)
[2016-12-27] MEDS: ASPIRIN 81 MG CHEW TAB PO SCH (10:09)
[2016-12-27] MEDS: AMIODARONE 200 MG TAB PO SCH (10:09)
[2016-12-27] MEDS: MORPHINE SULFATE 30 MG CONTROLLED RELEASE TAB PO SCH ×2 (10:09→21:01)
[2016-12-27] MEDS: METOPROLOL TARTRATE 25 MG TAB PO SCH ×2 (10:09→21:00)
[2016-12-27] MEDS: LOSARTAN 25 MG TAB PO SCH (10:09)
[2016-12-27] MEDS: NITROFURANTOIN MONOHYD MACROCR 100 MG CAP PO SCH ×2 (10:10→16:18)
--- NOTE | 2016-12-27 11:03 | HHI.PR ---
Subjective Remarks Patient seen and examined today in follow-up for inability care for self. Patient states that she is doing well today. She is content with her diet at this time, however now she is disgruntled about her fluid restriction. I counseled patient extensively on need for fluid restriction because of her congestive heart failure. Objective Vitals Vital Signs Date Time Temp Pulse Resp B/P Pulse Ox O2 Delivery O2 Flow Rate FiO2 12/27/16 08:00 98.0 82 18 94/66 93 12/26/16 20:00 96.4 89 19 105/57 97 12/26/16 13:31 18 I/O 12/26/16 12/26/16 12/26/16 12/27/16 12/27/16 12/27/16 07:00 15:00 23:00 07:00 15:00 23:00 Intake Total 660 ml 560 ml 120 ml 120 ml Output Total 1000 ml 650 ml Balance -340 ml -90 ml 120 ml 120 ml Intake Oral 660 ml 560 ml 120 ml 120 ml Output Urine Total 1000 ml 650 ml # Voids 1 1 # Bowel Movements 0 1 Result Diagram: 12/25/1645 12/25/1645 Objective Remarks GENERAL: Well-developed, well-nourished, in no acute distress. alert and orientated HEENT: Head is normocephalic without any lesions or masses noted. Facial features are symmetric. Eyes: Extraocular muscles are intact. Conjunctivae were clear. NECK: Supple without any masses. Trachea midline no deviation. No JVD, CARDIAC: Regular rhythm, regular rate. S1/S2 are heard. No murmurs gallops or rubs. LUNGS: Clear to auscultation bilaterally. No wheeze, rhonchi or rales. No use of accessory muscles on inspiration or expiration. ABDOMEN: Soft, nontender. Nondistended. Bowel sounds heard in all 4 quadrants. No organomegaly or masses. Negative rebound, negative guarding EXTREMITIES: No edema, pulses are equal bilaterally. No cyanosis or clubbing. 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 Left lower extremity has fracture boot NEUROLOGY: Mood and affect appear appropriate. Cranial nerves II through XII grossly intact. 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, r/t Diabetic Neuropathy, with inability to take care of self at home Continue physical therapy Continue case management for discharge planning Pain control Continue gabapentin, Cymbalta Oramorph SR 30 mg every 12 hours Percocet 5/325 one tab every 4 hours as needed for pain 35, will change that every 6 hours Morphine sulfate 15 mg every 6 hours as needed for pain greater than 5 Sepsis with urinary tract infection, resolved Patient stable this time, no longer febrile, leukocytosis resolved Urinary culture with Citrobacter freundii Nitroglycerin Furadantin until 12/30/16 Acute blood loss anemia, resolved Hemoglobin stable Status post transfusion 2 units packed red blood cells 12/23 Acute kidney injury, resolved Renal functions have returned to normal Avoid nephrotoxins Chronic systolic/diastolic congestive heart failure Recent echocardiogram indicates ejection fraction 2530 percent Continue metoprolol, Cozaar 1500 mL fluid restriction Hypertension, coronary disease Blood pressure stable Continue blood pressure medication and just as needed Diabetes type 2 with peripheral neuropathy, long-term use insulin Human insulin 70/30, 15 units twice daily. Increased to 18 units at 0800, continue 15 units at 1700 Accu-Cheks with sliding scale insulin, patient has only required 1 units of insulin daily Patient will not follow diabetic diet, despite extensive counseling on diabetic management. We'll need to adjust insulin periodically PAD, Hyperlipidemia, Hx of Breast Cancer,SLE,Asthma, chronic and stable No change to baseline treatments, Follow clinically DVT prophylaxis heparin and SCD Discharge Planning Complicated discharge. Case management managing discharge planning. Apparently patient has used a rehabilitation center benefits without co-pay. Patient does not have the funds for a co-pay. Patient will remain in hospital until she is able to function at home or until case management can arrange other discharge planning Blademar Black December 27, 2016 11:03
[2016-12-27] MEDS: oxyCODONE/ACETAMINOPHEN 5 MG/325 MG TAB PO PRN (12:48)
[2016-12-27 20:00] VITALS: BP 103/53; PULSE 75; RESP 20; TEMP 97.2; O2SAT 95
[2016-12-27] MEDS: ATORVASTATIN 40 MG TAB PO SCH (21:00)
[2016-12-27] MEDS: MONTELUKAST SODIUM 10 MG TAB PO SCH (21:00)
[2016-12-28] MEDS: GABAPENTIN 300 MG CAP PO SCH ×4 (00:07→17:14)
[2016-12-28] MEDS: MORPHINE SULFATE 15 MG TAB PO PRN ×4 (00:08→18:55)
[2016-12-28] MEDS: INSULIN ASPART SUPPLEMENTAL SCALE SQ SCH ×4 (06:31→20:27)
[2016-12-28 08:00] VITALS: BP 131/91; PULSE 81; RESP 17; TEMP 97.4; O2SAT 93
[2016-12-28] MEDS: DULoxetine HCl DR 60 MG CAP PO SCH (08:20)
[2016-12-28] MEDS: NITROFURANTOIN MONOHYD MACROCR 100 MG CAP PO SCH ×2 (08:20→17:14)
[2016-12-28] MEDS: AMIODARONE 200 MG TAB PO SCH (08:20)
[2016-12-28] MEDS: METOPROLOL TARTRATE 25 MG TAB PO SCH ×2 (08:21→20:17)
[2016-12-28] MEDS: MORPHINE SULFATE 30 MG CONTROLLED RELEASE TAB PO SCH ×2 (08:21→20:17)
[2016-12-28] MEDS: LOSARTAN 25 MG TAB PO SCH (08:21)
[2016-12-28] MEDS: ASPIRIN 81 MG CHEW TAB PO SCH (08:22)
[2016-12-28] MEDS: INSULIN HUMAN NPH/R 70/30 1,000 UNITS/10 ML VIAL SQ SCH ×2 (08:27→17:16)
--- NOTE | 2016-12-28 09:16 | HHI.PR ---
Subjective Remarks Patient seen and examined today in follow-up for unable to care for self at home. Patient is sitting in bed eating breakfast. She denies any new complaints. Does not indicate any pain issues. Objective Vitals Vital Signs Date Time Temp Pulse Resp B/P Pulse Ox O2 Delivery O2 Flow Rate FiO2 12/28/16 08:00 97.4 81 17 131/91 93 12/27/16 22:01 20 12/27/16 20:00 97.2 75 20 103/53 95 12/27/16 17:23 18 12/27/16 14:09 18 I/O 12/27/16 12/27/16 12/27/16 12/28/16 12/28/16 12/28/16 07:00 15:00 23:00 07:00 15:00 23:00 Intake Total 120 ml 240 ml 360 ml 0 ml Balance 120 ml 240 ml 360 ml 0 ml Intake Oral 120 ml 240 ml 360 ml IV Total 0 ml # Voids 1 2 2 Result Diagram: 12/25/16 0645 12/25/16 0645 Objective Remarks GENERAL: Well-developed, well-nourished, in no acute distress. alert and orientated HEENT: Head is normocephalic without any lesions or masses noted. Facial features are symmetric. Eyes: Extraocular muscles are intact. Conjunctivae were clear. NECK: Supple without any masses. Trachea midline no deviation. No JVD, CARDIAC: Regular rhythm, regular rate. S1/S2 are heard. No murmurs gallops or rubs. LUNGS: Clear to auscultation bilaterally. No wheeze, rhonchi or rales. No use of accessory muscles on inspiration or expiration. ABDOMEN: Soft, nontender. Nondistended. Bowel sounds heard in all 4 quadrants. No organomegaly or masses. Negative rebound, negative guarding EXTREMITIES: No edema, pulses are equal bilaterally. No cyanosis or clubbing. 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 Left lower extremity has fracture boot NEUROLOGY: Mood and affect appear appropriate. Cranial nerves II through XII grossly intact. 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, r/t Diabetic Neuropathy, with inability to take care of self at home Continue physical therapy Continue case management for discharge planning Pain control Continue gabapentin, Cymbalta Oramorph SR 30 mg every 12 hours Percocet 5/325 one tab every 4 hours as needed for pain 35, will change that every 6 hours Morphine sulfate 15 mg every 6 hours as needed for pain greater than 5 Diabetes type 2 with peripheral neuropathy, long-term use insulin Human insulin 70/30, 18 units at 0800, 15 units at 1700 Accu-Cheks with sliding scale insulin, patient has not required any insulin in 2 days Patient will not follow diabetic diet, despite extensive counseling on diabetic management. We'll need to adjust insulin periodically Sepsis with urinary tract infection, resolved Patient stable this time, no longer febrile, leukocytosis resolved Urinary culture with Citrobacter freundii Nitroglycerin Furadantin until 12/30/16 Acute blood loss anemia, resolved Hemoglobin stable Status post transfusion 2 units packed red blood cells 12/23 Acute kidney injury, resolved Renal functions have returned to normal Avoid nephrotoxins Chronic systolic/diastolic congestive heart failure Recent echocardiogram indicates ejection fraction 2530 percent Continue metoprolol, Cozaar 1500 mL fluid restriction Hypertension, coronary disease Blood pressure stable Continue blood pressure medication and just as needed PAD, Hyperlipidemia, Hx of Breast Cancer,SLE,Asthma, chronic and stable No change to baseline treatments, Follow clinically DVT prophylaxis heparin and SCD Discharge Planning Complicated discharge. Case management managing discharge planning. Apparently patient has used a rehabilitation center benefits without co-pay. Patient does not have the funds for a co-pay. Patient will remain in hospital until she is able to function at home or until case management can arrange other discharge planning Baldemar Black December 28, 2016 09:16
[2016-12-28] MEDS: NYSTATIN 100,000 U/GM OINT 15 GM TUBE TOPICAL SCH ×2 (10:31→21:13)
[2016-12-28] MEDS: COLLAGENASE OINT 30 GM TUBE TOPICAL SCH (10:31)
[2016-12-28 20:00] VITALS: BP_SYST 63; BP_SYST 83; BP_DIAS 44; BP_DIAS 48; PULSE 82; RESP 16; TEMP 97.4; O2SAT 94
[2016-12-28] MEDS: MONTELUKAST SODIUM 10 MG TAB PO SCH (20:16)
[2016-12-28] MEDS: ATORVASTATIN 40 MG TAB PO SCH (20:16)
[2016-12-29] VITALS: BP_SYST 102; BP_SYST 98; BP_DIAS 53; BP_DIAS 66; PULSE 82; RESP 16; TEMP 97.4; O2SAT 94
[2016-12-29] MEDS: GABAPENTIN 300 MG CAP PO SCH ×5 (00:19→23:52)
[2016-12-29] MEDS: INSULIN ASPART SUPPLEMENTAL SCALE SQ SCH ×4 (06:35→20:54)
[2016-12-29] MEDS: METOPROLOL TARTRATE 25 MG TAB PO SCH ×2 (08:34→20:41)
[2016-12-29] MEDS: NITROFURANTOIN MONOHYD MACROCR 100 MG CAP PO SCH ×2 (08:34→17:06)
[2016-12-29] MEDS: DULoxetine HCl DR 60 MG CAP PO SCH (08:34)
[2016-12-29] MEDS: LOSARTAN 25 MG TAB PO SCH (08:34)
[2016-12-29] MEDS: AMIODARONE 200 MG TAB PO SCH (08:34)
[2016-12-29] MEDS: ASPIRIN 81 MG CHEW TAB PO SCH (08:34)
[2016-12-29] MEDS: MORPHINE SULFATE 15 MG TAB PO PRN ×2 (08:35→17:08)
[2016-12-29] MEDS: COLLAGENASE OINT 30 GM TUBE TOPICAL SCH (08:36)
[2016-12-29 08:41] VITALS: BP 104/58; PULSE 84; RESP 16; TEMP 98.6; O2SAT 94
[2016-12-29] MEDS: INSULIN HUMAN NPH/R 70/30 1,000 UNITS/10 ML VIAL SQ SCH (08:41)
[2016-12-29] MEDS: NYSTATIN 100,000 U/GM OINT 15 GM TUBE TOPICAL SCH ×2 (09:00→21:00)
[2016-12-29] MEDS: MORPHINE SULFATE 30 MG CONTROLLED RELEASE TAB PO SCH (10:43)
--- NOTE | 2016-12-29 12:00 | HHI.PR ---
Subjective Remarks Written by Baldemar Black, acting as scribe for Dr. Thompson on 12/29/16 at 13: 19. Patient seen and examined today for follow-up on unable to care for self at home. Patient denies any new complaints. Patient has low blood pressure in the last 24 hours. Unknown whether this is related to overmedication, no infection, pressure medication. She says she doesn't get shortness of breath. She would like the fluid restriction lifted. Objective Vitals Vital Signs Date Time Temp Pulse Resp B/P Pulse Ox O2 Delivery O2 Flow Rate FiO2 12/29/16 09:35 18 12/29/16 08:41 98.6 84 16 104/58 94 12/29/16 00:00 97.4 82 16 98/66 94 102/53 12/28/16 21:17 16 12/28/16 20:00 97.4 82 16 63/44 94 83/48 I/O 12/28/16 12/28/16 12/28/16 12/29/16 12/29/16 12/29/16 07:00 15:00 23:00 07:00 15:00 23:00 Intake Total 360 ml 320 ml 240 ml 360 ml Balance 360 ml 320 ml 240 ml 360 ml Intake Oral 360 ml 320 ml 240 ml 360 ml IV Total 0 ml # Voids 2 1 1 # Bowel Movements 0 0 Result Diagram: 12/25/16 0645 12/25/16 0645 Imaging Last Impressions Ankle X-Ray 12/17/16 0000 Signed Impressions: Service Date/Time: Saturday, December 17, 2016 13:55 - CONCLUSION: Incomplete union of an old fracture involving the distal fibula. No acute fracture. Antwan Apodaca Jr., MD Renal Ultrasound 12/14/16 0000 Signed Impressions: Service Date/Time: Wednesday, December 14, 2016 16:15 - CONCLUSION: Moderate bilateral hydronephrosis and significantly distended urinary bladder with debris. The findings raise the possibility of bladder outlet obstruction. Clinical correlation is recommended. Gage Lubin MD Objective Remarks GENERAL: Well-developed, well-nourished, in no acute distress. alert and orientated HEENT: Head is normocephalic without any lesions or masses noted. Facial features are symmetric. Eyes: Extraocular muscles are intact. Conjunctivae were clear. NECK: Supple without any masses. Trachea midline no deviation. No JVD, CARDIAC: Regular rhythm, regular rate. S1/S2 are heard. No murmurs gallops or rubs. LUNGS: Clear to auscultation bilaterally. No wheeze, rhonchi or rales. No use of accessory muscles on inspiration or expiration. ABDOMEN: Soft, nontender. Nondistended. Bowel sounds heard in all 4 quadrants. No organomegaly or masses. Negative rebound, negative guarding EXTREMITIES: No edema, pulses are equal bilaterally. No cyanosis or clubbing. 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 Left lower extremity has fracture boot NEUROLOGY: Mood and affect appear appropriate. Cranial nerves II through XII grossly intact. Moving all extremities, speech is clear Medications and IVs Current Medications Medications (Trade) Dose Ordered Sig/Seng Route Start Time Stop Time Status Last Admin (Dulcolax Supp) 10 mg DAILY PRN RECTAL 12/13/16 19:30 (Tylenol) 650 mg Q6H PRN PO 12/13/16 19:30 (D50w (Vial) Inj) 25 ml UNSCH PRN IV PUSH 12/13/16 19:30 (Glucagon Inj) 1 mg UNSCH PRN OTHER 12/13/16 19:30 (Cordarone) 200 mg DAILY PO 12/14/16 09:00 12/29/16 08:34 (Aspirin Chew) 81 mg DAILY PO 12/14/16 09:00 12/29/16 08:34 (Lipitor) 40 mg HS PO 12/13/16 21:00 12/28/16 20:16 (Neurontin) 300 mg Q6HR PO 12/14/16 00:00 12/29/16 12:05 (Singulair) 10 mg HS PO 12/13/16 21:00 12/28/16 20:16 (Anali-Colace) 1 tab BID PRN PO 12/13/16 19:30 (Cymbalta Dr) 60 mg DAILY PO 12/15/16 09:00 12/29/16 08:34 (Pill Splitter) 1 ea UNSCH PRN OTHER 12/16/16 11:15 (Santyl Oint) 1 applic DAILY TOPICAL 12/17/16 09:00 12/29/16 08:36 (Apresoline) 25 mg Q8HR PO 12/17/16 18:00 Hold 12/21/16 05:56 (Macrobid) 100 mg BIDPC PO 12/24/16 09:00 12/30/16 23:00 12/29/16 08:34 (Msir) 15 mg Q6H PRN PO 12/24/16 13:30 12/29/16 08:35 (Zofran Odt) 4 mg Q6H PRN PO 12/25/16 11:00 (Mycostatin Oint) 1 applic Q12HR TOPICAL 12/25/16 16:00 12/29/16 09:00 (Percocet 5-325 Mg) 1 tab Q6HR PRN PO 12/26/16 12:00 12/27/16 12:48 (Lopressor) 12.5 mg BID PO 12/29/16 21:00 (Oramorph Sr) 15 mg Q12HR PO 12/29/16 21:00 (Glucophage) 500 mg BIDPC PO 12/29/16 13:00 (Cozaar) 12.5 mg DAILY PO 12/30/16 09:00 (Restoril) 7.5 mg HS PRN PO 12/29/16 14:00 UNV Urinary Catheter: No Vascular Central Line Catheter: No A/P Assessment and Plan 61 years old female admitted with weakness, unable to care for self at home Status post R BKA, 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, r/t Diabetic Neuropathy, with inability to take care of self at home Continue physical therapy Continue case management for discharge planning Pain control Continue gabapentin, Cymbalta Oramorph SR 30 mg every 12 hours, decreased to Oramorph SR 15 mg every 12 hours Percocet 5/325 one tab every 6 hours as needed for pain 6-10 Morphine sulfate 15 mg every 6 hours as needed for breakthrough pain Diabetes type 2 with peripheral neuropathy, long-term use insulin Discontinue Human insulin 70/30, 18 units at 0800, 15 units at 1700 Continue Accu-Cheks with sliding scale insulin, patient received 1 unit insulin in 3 days Patient will not follow diabetic diet, despite extensive counseling on diabetic management. We'll need to adjust insulin periodically Start metformin 500 twice a day Sepsis with urinary tract infection, resolved Patient stable this time, no longer febrile, leukocytosis resolved Urinary culture with Citrobacter freundii Nitrofurantoin until 12/30/16 Acute blood loss anemia, resolved Hemoglobin stable Status post transfusion 2 units packed red blood cells 12/23 Acute kidney injury, resolved Renal functions have returned to normal Avoid nephrotoxins Chronic systolic/diastolic congestive heart failure Recent echocardiogram indicates ejection fraction 2530 percent Continue metoprolol, Cozaar 1500 mL fluid restriction Hypertension, coronary disease Low at this time We will decrease to Lopressor 12.5 mg twice daily with hold parameters Cozaar decreased to 12.5 mg daily PAD, Hyperlipidemia, Hx of Breast Cancer,SLE,Asthma, chronic and stable No change to baseline treatments, Follow clinically DVT prophylaxis heparin and SCD Discharge Planning Complicated discharge. Case management managing discharge planning. Apparently patient has used a rehabilitation center benefits without co-pay. Patient does not have the funds for a co-pay. Patient will remain in hospital until she is able to function at home or until case management can arrange other discharge planning Attending Statement This note was transcribed by nury Black. I, Dr. Blaine Thompson personally performed the history, physical exam, and medical decision making; and confirmed the accuracy of the information in the transcribed note. Authenticated by Dr. Blaine Thompson on 12/29/16 at 14:09. Baldemar Black December 29, 2016 12:00 Blaine Thompson DO December 29, 2016 14:10
[2016-12-29] MEDS: metFORMIN HCL 500 MG TAB PO SCH ×2 (14:00→17:06)
[2016-12-29] MEDS: oxyCODONE/ACETAMINOPHEN 5 MG/325 MG TAB PO PRN (14:01)
[2016-12-29 17:46] LABS: BLOOD, URINE LARGE (NEG); GLUCOSE,URINE NEG (NEG); KETONE, URINE NEG (NEG); NITRITE,URINE NEG (NEG); PH, URINE 5.5 (5.0-8.5)
[2016-12-29 18:23] LABS: METHOD OF COLLECTION CLEAN CATCH; URINE COLOR YELLOW (YELLW/STRAW)
[2016-12-29 18:24] LABS: BACTERIA, URINE OCC /hpf; COMMENT (UR) CULTURE INDICATED; CULTURE IF INDICATED CULTURE INDICATED; SQUAMOUS EPITHELIAL CELL URINE 0-5 /hpf (0-5)
[2016-12-29 20:00] VITALS: BP 86/51; PULSE 84; RESP 16; TEMP 98; O2SAT 92
[2016-12-29] MEDS: MONTELUKAST SODIUM 10 MG TAB PO SCH (20:41)
[2016-12-29] MEDS: ATORVASTATIN 40 MG TAB PO SCH (20:41)
[2016-12-29] MEDS: MORPHINE SULFATE 15 MG CONTROLLED RELEASE TAB PO SCH (21:00)
[2016-12-30] MEDS: GABAPENTIN 300 MG CAP PO SCH ×4 (06:04→23:29)
[2016-12-30] MEDS: INSULIN ASPART SUPPLEMENTAL SCALE SQ SCH ×4 (06:38→21:00)
[2016-12-30 08:00] VITALS: BP 102/63; PULSE 88; RESP 18; TEMP 97.7; O2SAT 96
[2016-12-30] MEDS: AMIODARONE 200 MG TAB PO SCH (08:31)
[2016-12-30] MEDS: ASPIRIN 81 MG CHEW TAB PO SCH (08:31)
[2016-12-30] MEDS: DULoxetine HCl DR 60 MG CAP PO SCH (08:32)
[2016-12-30] MEDS: metFORMIN HCL 500 MG TAB PO SCH ×2 (08:32→17:39)
[2016-12-30] MEDS: NITROFURANTOIN MONOHYD MACROCR 100 MG CAP PO SCH ×2 (08:32→17:39)
[2016-12-30] MEDS: METOPROLOL TARTRATE 25 MG TAB PO SCH (08:32)
[2016-12-30] MEDS: MORPHINE SULFATE 15 MG TAB PO PRN ×3 (08:33→23:29)
[2016-12-30] MEDS: COLLAGENASE OINT 30 GM TUBE TOPICAL SCH (08:34)
[2016-12-30] MEDS: NYSTATIN 100,000 U/GM OINT 15 GM TUBE TOPICAL SCH ×2 (08:34→21:23)
[2016-12-30] MEDS ORDERED: LOSARTAN 25 MG TAB PO SCH (09:00)
--- NOTE | 2016-12-30 09:50 | HHI.PR ---
Subjective Remarks Patient seen and examined today for follow-up on unable to care for self at home. Patient denies any new complaints. Patient sitting in bed Objective Vitals Vital Signs Date Time Temp Pulse Resp B/P Pulse Ox O2 Delivery O2 Flow Rate FiO2 12/30/16 08:00 97.7 88 18 102/63 96 12/29/16 22:00 16 12/29/16 20:00 98.0 84 16 86/51 92 12/29/16 18:08 18 12/29/16 15:07 18 12/29/16 11:43 18 I/O 12/29/16 12/29/16 12/29/16 12/30/16 12/30/16 12/30/16 07:00 15:00 23:00 07:00 15:00 23:00 Intake Total 360 ml 980 ml 480 ml Balance 360 ml 980 ml 480 ml Intake Oral 360 ml 980 ml 480 ml # Voids 1 3 2 # Bowel Movements 0 0 0 Objective Remarks GENERAL: Well-developed, well-nourished, in no acute distress. alert and orientated HEENT: Head is normocephalic without any lesions or masses noted. Facial features are symmetric. Eyes: Extraocular muscles are intact. Conjunctivae were clear. NECK: Supple without any masses. Trachea midline no deviation. No JVD, CARDIAC: Regular rhythm, regular rate. S1/S2 are heard. No murmurs gallops or rubs. LUNGS: Clear to auscultation bilaterally. No wheeze, rhonchi or rales. No use of accessory muscles on inspiration or expiration. ABDOMEN: Soft, nontender. Nondistended. Bowel sounds heard in all 4 quadrants. No organomegaly or masses. Negative rebound, negative guarding EXTREMITIES: No edema, pulses are equal bilaterally. No cyanosis or clubbing. 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 Left lower extremity has fracture boot NEUROLOGY: Mood and affect appear appropriate. Cranial nerves II through XII grossly intact. 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, r/t Diabetic Neuropathy, with inability to take care of self at home Continue physical therapy Continue case management for discharge planning Pain control Continue gabapentin, Cymbalta Oramorph SR 15 mg every 12 hours Percocet 5/325 one tab every 6 hours as needed for pain 6-10 Morphine sulfate 15 mg every 6 hours as needed for breakthrough pain Diabetes type 2 with peripheral neuropathy, long-term use insulin Discontinued Human insulin 70/30, 18 units at 0800, 15 units at 1700 Continue metformin 500 twice a day Continue Accu-Cheks with sliding scale insulin, patient received 1 unit insulin yesterday Patient will not follow diabetic diet, despite extensive counseling on diabetic management. We'll need to adjust insulin periodically Sepsis with urinary tract infection, resolved Patient stable this time, no longer febrile, leukocytosis resolved Urinary culture with Citrobacter freundii Nitroglycerin Furadantin until 12/30/16 Acute blood loss anemia, resolved Hemoglobin stable Status post transfusion 2 units packed red blood cells 12/23 Acute kidney injury, resolved Renal functions have returned to normal Avoid nephrotoxins Chronic systolic/diastolic congestive heart failure Recent echocardiogram indicates ejection fraction 2530 percent Continue metoprolol, Cozaar Hypertension, coronary disease Low at this time Lopressor 12.5 mg twice daily with hold parameters, changed to Coreg 3.125 twice daily Discontinue Cozaar 12.5 mg daily PAD, Hyperlipidemia, Hx of Breast Cancer,SLE,Asthma, chronic and stable No change to baseline treatments, Follow clinically DVT prophylaxis heparin and SCD Discharge Planning Complicated discharge. Case management managing discharge planning. Apparently patient has used a rehabilitation center benefits without co-pay. Patient does not have the funds for a co-pay. Patient will remain in hospital until she is able to function at home or until case management can arrange other discharge planning Baldemar Black December 30, 2016 09:50
[2016-12-30] MEDS: MORPHINE SULFATE 15 MG CONTROLLED RELEASE TAB PO SCH ×2 (10:30→21:21)
[2016-12-30 20:00] VITALS: BP 112/84; PULSE 98; RESP 19; TEMP 100.2; O2SAT 95
[2016-12-30] MEDS: MONTELUKAST SODIUM 10 MG TAB PO SCH (21:20)
[2016-12-30] MEDS: CARVEDILOL 3.125 MG TAB PO SCH (21:20)
[2016-12-30] MEDS: ATORVASTATIN 40 MG TAB PO SCH (21:20)
[2016-12-31] MEDS: GABAPENTIN 300 MG CAP PO SCH ×3 (05:30→17:00)
[2016-12-31] MEDS: oxyCODONE/ACETAMINOPHEN 5 MG/325 MG TAB PO PRN (05:30)
[2016-12-31] MEDS: INSULIN ASPART SUPPLEMENTAL SCALE SQ SCH ×4 (05:31→21:26)
[2016-12-31] MEDS: AMIODARONE 200 MG TAB PO SCH (07:57)
[2016-12-31] MEDS: metFORMIN HCL 500 MG TAB PO SCH ×2 (07:57→17:00)
[2016-12-31] MEDS: DULoxetine HCl DR 60 MG CAP PO SCH (07:58)
[2016-12-31] MEDS: CARVEDILOL 3.125 MG TAB PO SCH ×2 (07:58→21:20)
[2016-12-31] MEDS: MORPHINE SULFATE 15 MG CONTROLLED RELEASE TAB PO SCH (07:58)
[2016-12-31] MEDS: ASPIRIN 81 MG CHEW TAB PO SCH (07:58)
[2016-12-31 08:00] VITALS: BP 105/77; PULSE 91; RESP 18; TEMP 97.4; O2SAT 95
[2016-12-31] MEDS: COLLAGENASE OINT 30 GM TUBE TOPICAL SCH (08:02)
[2016-12-31] MEDS: NYSTATIN 100,000 U/GM OINT 15 GM TUBE TOPICAL SCH ×2 (08:03→21:20)
[2016-12-31] MEDS: DOXYCYCLINE HYCLATE 100 MG CAP PO SCH ×2 (08:56→21:20)
--- NOTE | 2016-12-31 12:40 | HHI.PR ---
Subjective Remarks Follow-up for weakness, inability to care for self. Patient leaning forward sitting in bed and when she arouses she states she had gotten up and was confused and needs help leaning back. Patient is noted to have a temperature of 100.2 last night. She denies any subjective fevers or chills. Denies any abdominal pain, nausea, vomiting, dysuria, increased urinary frequency. The patient said she was trying to wake up. She said she wanted to get out of bed. She said she still has pain and would like to keep having pain medication. Objective Vitals Vital Signs Date Time Temp Pulse Resp B/P Pulse Ox O2 Delivery O2 Flow Rate FiO2 12/31/16 08:00 97.4 91 18 105/77 95 12/31/16 00:29 20 12/30/16 22:21 20 12/30/16 20:00 100.2 98 19 112/84 95 I/O 12/30/16 12/30/16 12/30/16 12/31/16 12/31/16 12/31/16 07:00 15:00 23:00 07:00 15:00 23:00 Intake Total 480 ml 720 ml 120 ml Balance 480 ml 720 ml 120 ml Intake Oral 480 ml 720 ml 120 ml # Voids 2 3 1 # Bowel Movements 0 1 Objective Remarks GENERAL: Well-developed patient in no apparent distress. SKIN: Warm and dry. Surgical scar over the right back and left lower leg. CARDIOVASCULAR: Regular rate and rhythm. RESPIRATORY: No accessory muscle use. Clear to auscultation. Breath sounds equal bilaterally. GASTROINTESTINAL: Abdomen soft, non-tender, nondistended. Colostomy bag. MUSCULOSKELETAL: Right BKA noted. NEUROLOGICAL: Somnolent repeatedly leaning forward as she falls asleep during exam. Patient knows she is in the hospital at [place] but does not know the month or the year. Normal speech. PSYCHIATRIC: Appropriate mood and affect. Urinary Catheter: No Vascular Central Line Catheter: No A/P Assessment and Plan 61 years old female admitted with weakness, unable to care for herself at home. 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 Discussed with Dr. Thompson who has also evaluated patient. He has discontinued her Oramorph SR. DC long-acting pain medication. Will try to control pain with Percocet for the time being. Diabetes type 2 with peripheral neuropathy, long-term use insulin: Stable Hemoglobin A1c 5.6 on 12/25. Human insulin 70/30 discontinued. Continue Metformin 500 twice a day. Continue Accu-Cheks with sliding scale insulin; has not required insulin any yesterday or today. BGL in the 120's today. Patient will not follow diabetic diet, despite extensive counseling on diabetic management. Glucose well controlled on metformin. Continue. Sepsis with urinary tract infection: unresolved UTI, temp 100.2 degrees last night. Leukocytosis resolved 12/21 blood cultures no growth to date. Urinary culture 12/21 with Citrobacter freundii treated with Macrobid until 12/30. Repeat urine culture 12/29 with gram negative rods and MRSA. Discussed with Dr. Thompson. Patient started on Doxycycline 100 mg po bid. Doxycycline as above. Acute blood loss anemia: Improved Hemoglobin stable Status post transfusion 2 units packed red blood cells 12/23 Acute kidney injury: Resolved Renal functions have returned to normal Avoid nephrotoxins Chronic systolic/diastolic congestive heart failure Recent echocardiogram indicates ejection fraction 2530 percent Continue Metoprolol. Hypertension, coronary disease Low at this time Lopressor 12.5 mg twice daily with hold parameters changed to Coreg 3.125 twice daily Cozaar discontinued. PAD, Hyperlipidemia, Hx of Breast Cancer, SLE, Asthma: chronic and stable Follow clinically DVT prophylaxis Heparin, SCDs Attending Statement The exam, history, and the medical decision-making described in the above note were completed with the assistance of the mid-level provider. I reviewed and agree with the findings presented. I attest that I had a [id number] encounter with the patient on the same day, and personally performed and documented my assessment and findings in the medical record. Elsy Dubois December 31, 2016 12:40 Blaine Thompson DO December 31, 2016 16:03
[2016-12-31] MEDS: MORPHINE SULFATE 15 MG TAB PO PRN (13:02)
[2016-12-31 20:00] VITALS: BP 100/66; PULSE 94; RESP 19; TEMP 99.7; O2SAT 94
[2016-12-31] MEDS: ATORVASTATIN 40 MG TAB PO SCH (21:20)
[2016-12-31] MEDS: MONTELUKAST SODIUM 10 MG TAB PO SCH (21:20)
[2017-01-01] MEDS: oxyCODONE/ACETAMINOPHEN 5 MG/325 MG TAB PO PRN ×3 (03:33→20:57)
[2017-01-01] MEDS: INSULIN ASPART SUPPLEMENTAL SCALE SQ SCH ×4 (06:11→21:00)
[2017-01-01] MEDS: GABAPENTIN 300 MG CAP PO SCH ×2 (06:11)
[2017-01-01 08:00] VITALS: BP_SYST 127; BP_SYST 98; BP_DIAS 51; BP_DIAS 79; PULSE 60; PULSE 76; RESP 17; RESP 18; TEMP 97.7; TEMP 98.3; O2SAT 100; O2SAT 98
[2017-01-01] MEDS: DOXYCYCLINE HYCLATE 100 MG CAP PO SCH (08:56)
[2017-01-01] MEDS: ASPIRIN 81 MG CHEW TAB PO SCH (08:57)
[2017-01-01] MEDS: CARVEDILOL 3.125 MG TAB PO SCH ×2 (08:57→20:57)
[2017-01-01] MEDS: AMIODARONE 200 MG TAB PO SCH (08:57)
[2017-01-01] MEDS: DULoxetine HCl DR 60 MG CAP PO SCH (08:57)
[2017-01-01] MEDS: metFORMIN HCL 500 MG TAB PO SCH (08:57)
[2017-01-01] MEDS: NYSTATIN 100,000 U/GM OINT 15 GM TUBE TOPICAL SCH ×2 (08:59→20:58)
[2017-01-01] MEDS: COLLAGENASE OINT 30 GM TUBE TOPICAL SCH (08:59)
[2017-01-01 09:02] LABS: AUTOMATED NEUTROPHIL # 13.5 TH/MM3 (1.8-7.7); BASOPHIL # 0.1 TH/MM3 (0-0.2); BASOPHIL % 0.6 % (0.0-2.0); EOSINOPHIL # 0.2 TH/MM3 (0-0.4); EOSINOPHIL % 1.5 % (0.0-4.0); HEMATOCRIT 27.2 % (35.0-46.0); LYMPH % 10.2 % (9.0-44.0); LYMPHOCYTE # 1.7 TH/MM3 (1.0-4.8); MEAN CELL VOLUME 86.2 FL (80.0-100.0); MEAN CORPUSCULAR HEMOGLOBIN 27.1 PG (27.0-34.0); MEAN CORPUSCULAR HGB CONC 31.5 % (32.0-36.0); MONO % 6.2 % (0.0-8.0); NEUT % 81.5 % (16.0-70.0); PLATELET COUNT 254 TH/MM3 (150-450); RED BLOOD COUNT 3.16 MIL/MM3 (4.00-5.30); RED CELL DISTRIBUTION WIDTH 17.7 % (11.6-17.2); WHITE BLOOD COUNT 16.5 TH/MM3 (4.0-11.0)
[2017-01-01 09:05] LABS: HEMO FLAGS DIFF FINAL
[2017-01-01 09:55] LABS: POTASSIUM 5.4 MEQ/L (3.5-5.1)
[2017-01-01 10:03] LABS: BICARBONATE 22.8 MEQ/L (21.0-32.0)
[2017-01-01] MEDS ORDERED: CALCIUM GLUCONATE 10% 1 GM/10 ML VIAL IV ONE (11:45)
[2017-01-01] MEDS ORDERED: SODIUM POLYSTYRENE SULFONATE SUSP 15 GM/60 ML CUP PO ONE (11:45)
[2017-01-01] MEDS ORDERED: LEVOFLOXACIN 500 MG PREMIX INJ 100 ML IV ONE (12:15)
--- NOTE | 2017-01-01 13:10 | HHI.PR ---
Subjective Remarks F/u UTI and ALFREDO. RN reported she has been confused claiming she had a fall yesterday denies any injuries. She is currently alert and oriented 4. She is retaining urine post void urine over 500 mL. Denies fever, chills, neck pain, nausea, numbness, focal weakness, UTI symptoms and diarrhea. Discussed with RN Objective Vitals Vital Signs Date Time Temp Pulse Resp B/P Pulse Ox O2 Delivery O2 Flow Rate FiO2 01/01/17 08:00 98.3 76 17 98/51 100 12/31/16 20:00 99.7 94 19 100/66 94 I/O 12/31/16 12/31/16 12/31/16 01/01/17 01/01/17 01/01/17 07:00 15:00 23:00 07:00 15:00 23:00 Intake Total 120 ml 840 ml 120 ml Balance 120 ml 840 ml 120 ml Intake Oral 120 ml 840 ml 120 ml Bladder Scan Volume Amount 538 ml # Voids 1 3 1 Result Diagram: 01/01/17 0810 01/01/17 0810 Imaging Last Impressions Ankle X-Ray 12/17/16 0000 Signed Impressions: Service Date/Time: Saturday, December 17, 2016 13:55 - CONCLUSION: Incomplete union of an old fracture involving the distal fibula. No acute fracture. Antwan Apodaca Jr., MD Renal Ultrasound 12/14/16 0000 Signed Impressions: Service Date/Time: Wednesday, December 14, 2016 16:15 - CONCLUSION: Moderate bilateral hydronephrosis and significantly distended urinary bladder with debris. The findings raise the possibility of bladder outlet obstruction. Clinical correlation is recommended. Gage Lubin MD Objective Remarks GENERAL: Well-developed patient in no apparent distress. SKIN: Warm and dry. Surgical scar over the right back and left lower leg. CARDIOVASCULAR: Regular rate and rhythm. RESPIRATORY: No accessory muscle use. Clear to auscultation. Decreased Breath sounds equal bilaterally. GASTROINTESTINAL: Abdomen soft, non-tender, nondistended. Colostomy bag. MUSCULOSKELETAL: Right BKA noted. NEUROLOGICAL: Alert and oriented 4. Nonfocal Normal speech. PSYCHIATRIC: Appropriate mood and affect. A/P Assessment and Plan 61 years old female admitted with weakness, unable to care for herself at home. Acute kidney injury with hyperkalemia likely secondary to doxycycline, urinary retention, UTI and possibly dehydration. Avendano catheter has been placed. Discontinue doxycycline and gentle IV hydration for 1 L monitor for fluid overload. Check CK. Repeat BMP and mag after IV hydration. Kayexalate and IV calcium 1. Telemetry monitoring Sepsis Urinary tract infection. Culture growing MRSA and Pseudomonas. Start IV clindamycin and Levaquin consult infectious disease. Avoid nephrotoxins Metabolic and toxic encephalopathy. Patient nonfocal. Discontinue morphine and Percocet. 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 Human insulin 70/30 discontinued. Hold Metformin 500 twice a day secondary to acute kidney injury Continue Accu-Cheks with sliding scale insulin Patient will not follow diabetic diet, despite extensive counseling on diabetic management. Acute blood loss anemia: Status post transfusion 2 units packed red blood cells 12/23 --Hemoglobin dropped today with no gross bleeding. Repeat CBC in the morning Chronic systolic/diastolic congestive heart failure Recent echocardiogram indicates ejection fraction 2530 percent Continue Coreg with hold parameters. Hypertension, coronary disease Low at this time Lopressor 12.5 mg twice daily with hold parameters changed to Coreg 3.125 twice daily Cozaar discontinued. PAD, Hyperlipidemia, Hx of Breast Cancer, SLE, Asthma: chronic and stable Follow clinically DVT prophylaxis Heparin, SCDs Discharge Planning Not ready for discharge Clinton Potter MD January 01, 2017 13:10
[2017-01-01 13:27] LABS: CKMB 42.5 NG/ML (0.5-3.6)
[2017-01-01] MEDS: SODIUM CHLOR 0.9% 1000 ML INJ 1,000 ML IV SCH (13:35)
[2017-01-01] MEDS: HEPARIN SODIUM - SQ 10,000 UNITS/ML VIAL SQ SCH ×2 (13:36→21:02)
[2017-01-01] MEDS ORDERED: CALCIUM GLUCONATE INJ 1 GM in SODIUM CHLORIDE 0.9% INJ 100 ML IV ONE (14:00)
[2017-01-01] MEDS ORDERED: CLINDAMYCIN INJ 300 MG in SODIUM CHLORIDE 0.9% INJ 100 ML IV SCH (14:00)
[2017-01-01 16:13] VITALS: PULSE 80
--- NOTE | 2017-01-01 17:49 | PD.CONS ---
History of Present Illness Service ID CONSULT DR GARCIA Consult Requested By Primary Care Physician Alonso Robins MD Diagnoses: (1) DM (diabetes mellitus) (2) CHF (congestive heart failure) (3) Amputation of right lower extremity below knee History of Present Illness 61 Y/O FEMALE ADM TO HOSPITAL 12/13 ONE DAY FROM BEING DCD FROM LOCAL SNF WITH WEAKNESS AND HYPOTENSION. SHE IS KNOWN TO OUR SERVICE WITH RIGHT FOOT DIABETIC ULCER S/P FOREFOOT AMPUTATION. SHE CONTINUED TO HAVE DECLINE IN THE WOUND AND WAS ADM IN NOVEMBER WITH SEPTIC SHOCK AND ULTIMATELY HAD A RIGHT BKA. SHE WAS DCD TO REHAB AND STATES SHE WAS DOING FINE HOWEVER 1 DAY OF BEING HOME BECAME HYPOTENSIVE AND WEAK. SHE WAS ADM FOR CARE. SHE HAD A UTI 12/21 + CITROBACTER. SHE IS HERE NOW WITH + UAC + MRSA/PAE. SHE STATES TODAY SHE STARTED TO HAVE DIARRHEA. HER HAD DIARRHEA WELL. SHE IS CURRENTLY ON CLEOCIN / LEVAQUIN. ID CONSULTED TO HELP WITH CARE. (Rahel Erickson) History of Present Illness Known to service from outpatient follow up. Some burning in genital area because area is inflamed (Vianey Garcia MD) Review of Systems Constitutional: DENIES: Fever, Chills Respiratory: COMPLAINS OF: Shortness of breath, DENIES: Sputum production Gastrointestinal: DENIES: Difficulty Swallowing Genitourinary: DENIES: Dysmenorrhea Musculoskeletal: DENIES: Stiffness Integumentary: DENIES: Pruritus Hematologic/lymphatic: DENIES: Lymphadenopathy Immunologic/allergic: DENIES: Urticaria Neurologic: DENIES: Headache Psychiatric: DENIES: Confusion (Rahel Erickson) Past Family Social History Allergies: 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 Past Medical History Past Medical History BREAST CANCER, DIABETES DIABETIC FOOT ULCER RLE S/P AMPUTATION X 2 NOW BKA CAD RENAL STONES INTESTINAL FISTULA Past Surgical History Past Surgical History HYSTERECTOMY MASECTOMY COLOSTOMY Active Ordered Medications CLEOCIN LEVAQUIN Family History Family History Positive for diabetes denied CAD Social History Social History Quit smoking over a year ago no alcohol or illicit drug abuse (Rahel Erickson ) Physical Exam Vital Signs Vital Signs Date Time Temp Pulse Resp B/P Pulse Ox O2 Delivery O2 Flow Rate FiO2 01/01/17 16:13 80 01/01/17 08:00 98.3 76 17 98/51 100 12/31/16 20:00 99.7 94 19 100/66 94 Physical Exam GENERAL: This is a well-nourished, well-developed patient, older than her stated age in no apparent distress. SKIN: No rashes, ecchymoses or lesions. Cool and dry. HEAD: Atraumatic. Normocephalic. No temporal or scalp tenderness. EYES: Pupils equal round and reactive. Extraocular motions intact. No scleral icterus. No injection or drainage. ENT: Nose without bleeding, purulent drainage or septal hematoma. Throat without erythema, tonsillar hypertrophy or exudate. Uvula midline. Airway patent. edentulous NECK: Trachea midline. No JVD or lymphadenopathy. Supple, nontender, no meningeal signs. CARDIOVASCULAR: Regular rate and rhythm without murmurs, gallops, or rubs. RESPIRATORY: Clear to auscultation. Breath sounds equal bilaterally. No wheezes , rales, or rhonchi. GASTROINTESTINAL: Abdomen soft, non-tender, nondistended. No hepato-splenomegaly , or palpable masses. No guarding. MUSCULOSKELETAL: Right BKA healing with brenda rap NEUROLOGICAL: Awake and alert. Cranial nerves II through XII intact. Motor and sensory grossly within normal limits. Five out of 5 muscle strength in all muscle groups. Normal speech. Laboratory Laboratory Tests Test 01/01/17 08:10 White Blood Count 16.5 Red Blood Count 3.16 Hemoglobin 8.6 Hematocrit 27.2 Mean Corpuscular Volume 86.2 Mean Corpuscular Hemoglobin 27.1 Mean Corpuscular Hemoglobin 31.5 Concent Red Cell Distribution Width 17.7 Platelet Count 254 Mean Platelet Volume 7.4 Neutrophils (%) (Auto) 81.5 Lymphocytes (%) (Auto) 10.2 Monocytes (%) (Auto) 6.2 Eosinophils (%) (Auto) 1.5 Basophils (%) (Auto) 0.6 Neutrophils # (Auto) 13.5 Lymphocytes # (Auto) 1.7 Monocytes # (Auto) 1.0 Eosinophils # (Auto) 0.2 Basophils # (Auto) 0.1 CBC Comment DIFF FINAL Differential Comment Sodium Level 137 Potassium Level 5.4 Chloride Level 104 Carbon Dioxide Level 22.8 Anion Gap 10 Blood Urea Nitrogen 56 Creatinine 2.70 Estimat Glomerular Filtration 18 Rate Random Glucose 97 Calcium Level 9.2 Total Creatine Kinase 2315 Creatine Kinase MB 42.5 Creatine Kinase MB % 1.8 Date/Time Procedure Status Source Growth 12/29/16 17:25 Urine Culture - Preliminary Resulted Urine Clean Catch Pseudomonas Aeruginosa S. Aureus Mrsa (Rahel Erickson) Physical Exam Rt BKA - well healed Patient with a york and some candidiasis around (Vianey Garcia MD) Result Diagram: 01/01/17 0810 01/01/17 0810 Assessment and Plan Problem List: (1) CAD (coronary artery disease) Status: Chronic (2) Diabetes mellitus Status: Chronic (3) Methicillin resistant Staphylococcus aureus infection Status: Acute (4) Amputation of right lower extremity below knee Status: Acute (5) UTI (urinary tract infection) Status: Acute Plan: stop cleocin stop levaquin start vancomycin start cipro / cefepime pending cultures fu sensitivity (6) Diarrhea Status: Acute Plan: florastor may be r/t cleocin stop if worsens check for cdiff (Rahel Erickson) Problem List: (1) CAD (coronary artery disease) Status: Chronic (2) Diabetes mellitus Status: Chronic (3) Methicillin resistant Staphylococcus aureus infection Status: Acute (4) Amputation of right lower extremity below knee Status: Acute (5) UTI (urinary tract infection) Status: Acute Plan: Stop Clindamycin and Levofloxacin Patient with some renal failure so will give her IV Ceftaroline with Cipro for now Also Fluconazole 100 mg daily (6) Diarrhea Status: Acute Plan: florastor may be r/t cleocin stop if worsens check for cdiff (Vianey Garcia MD) Problem Qualifiers (1) Diabetes mellitus: (2) UTI (urinary tract infection): Rahel Erickson January 01, 2017 17:49 Vianey Garcia MD January 01, 2017 18:14
[2017-01-01] MEDS: CIPROFLOXACIN 400 MG PREMIX 200 ML IV SCH (18:27)
[2017-01-01 20:00] VITALS: BP 94/66; PULSE 76; RESP 19; TEMP 96.5; O2SAT 100
[2017-01-01] MEDS ORDERED: CEFTAROLINE INJ 400 MG in SODIUM CHLORIDE 0.9% INJ 100 ML IV SCH (20:00)
[2017-01-01] MEDS: MONTELUKAST SODIUM 10 MG TAB PO SCH (20:56)
[2017-01-01] MEDS: ATORVASTATIN 40 MG TAB PO SCH (20:58)
[2017-01-01] MEDS ORDERED: CEFTAROLINE INJ 400 MG in SODIUM CHLORIDE 0.9% INJ 100 ML IV ONE (21:00)
[2017-01-01 23:11] VITALS: PULSE 70
[2017-01-02] VITALS (7 sets, daily range): BP systolic 104–127; BP diastolic 51–70; PULSE 71–91; RESP 16–19; TEMP 96.1–98.1; O2SAT 95–100
[2017-01-02] MEDS: oxyCODONE/ACETAMINOPHEN 5 MG/325 MG TAB PO PRN ×4 (01:32→20:43)
[2017-01-02 01:46] LABS: BICARBONATE 26.9 MEQ/L (21.0-32.0); POTASSIUM 3.9 MEQ/L (3.5-5.1)
[2017-01-02] MEDS: GABAPENTIN 300 MG CAP PO SCH (05:56)
[2017-01-02] MEDS: HEPARIN SODIUM - SQ 10,000 UNITS/ML VIAL SQ SCH ×3 (05:57→20:46)
[2017-01-02] MEDS: INSULIN ASPART SUPPLEMENTAL SCALE SQ SCH ×4 (06:00→20:44)
[2017-01-02] MEDS: FLUCONAZOLE 100 MG TAB PO SCH (09:06)
[2017-01-02] MEDS: CARVEDILOL 3.125 MG TAB PO SCH ×2 (09:06→20:43)
[2017-01-02] MEDS: DULoxetine HCl DR 60 MG CAP PO SCH (09:06)
[2017-01-02] MEDS: ASPIRIN 81 MG CHEW TAB PO SCH (09:06)
[2017-01-02] MEDS: NYSTATIN 100,000 U/GM OINT 15 GM TUBE TOPICAL SCH ×2 (09:07→20:46)
[2017-01-02] MEDS: AMIODARONE 200 MG TAB PO SCH (09:07)
[2017-01-02] MEDS: LACTOBACILLUS ACIDOPHILUS TAB PO SCH ×3 (09:07→15:52)
[2017-01-02] MEDS: COLLAGENASE OINT 30 GM TUBE TOPICAL SCH (09:07)
[2017-01-02] MEDS: SODIUM CHLOR 0.9% 1000 ML INJ 1,000 ML IV SCH (09:09)
[2017-01-02] MEDS: CEFTAROLINE INJ 400 MG in SODIUM CHLORIDE 0.9% INJ 100 ML IV SCH ×2 (09:17→20:48)
[2017-01-02 10:47] LABS: AUTOMATED NEUTROPHIL # 7.7 TH/MM3 (1.8-7.7); BASOPHIL % 0.3 % (0.0-2.0); EOSINOPHIL # 0.2 TH/MM3 (0-0.4); EOSINOPHIL % 2.5 % (0.0-4.0); HEMATOCRIT 26.6 % (35.0-46.0); HEMO FLAGS DIFF FINAL; LYMPH % 9.3 % (9.0-44.0); LYMPHOCYTE # 0.9 TH/MM3 (1.0-4.8); MEAN CELL VOLUME 86.6 FL (80.0-100.0); MEAN CORPUSCULAR HEMOGLOBIN 27.3 PG (27.0-34.0); MEAN CORPUSCULAR HGB CONC 31.5 % (32.0-36.0); MONO % 7.7 % (0.0-8.0); NEUT % 80.2 % (16.0-70.0); PLATELET COUNT 252 TH/MM3 (150-450); RED BLOOD COUNT 3.07 MIL/MM3 (4.00-5.30); WHITE BLOOD COUNT 9.5 TH/MM3 (4.0-11.0)
[2017-01-02 10:56] LABS: POTASSIUM 3.9 MEQ/L (3.5-5.1)
[2017-01-02] MEDS ORDERED: ALBUTEROL SULFATE 90 MCG/ACT HFA 8 GM INHALER INH PRN (11:00)
[2017-01-02 11:01] LABS: BICARBONATE 28.2 MEQ/L (21.0-32.0)
--- NOTE | 2017-01-02 11:13 | HHI.PR ---
Subjective Remarks Follow-up for UTI, ALFREDO. Patient admits to subjective "fever" overnight. States she had some nausea and admits to "burning" in the muscles of both legs. Tell me again about the fall she had 2 nights ago although was unwitnessed by staff, patient states she found herself on the floor and then she was back in the bed. Denies head injury at that time. Does state she felt pain in her right leg. Patient states she started having diarrhea yesterday, 4 episodes and one episode today. Nurse tells me the patient has a wound to her posterior right BKA stump. Admits to shortness of breath due to asthma. Objective Vitals Vital Signs Date Time Temp Pulse Resp B/P Pulse Ox O2 Delivery O2 Flow Rate FiO2 01/02/17 08:21 97.0 76 18 110/70 95 01/02/17 07:14 82 01/02/17 04:00 97.6 81 19 104/51 100 01/02/17 00:00 96.1 76 19 110/58 99 01/01/17 23:11 70 01/01/17 20:00 96.5 76 19 94/66 100 01/01/17 16:13 80 I/O 01/01/17 01/01/17 01/01/17 01/02/17 01/02/17 01/02/17 07:00 15:00 23:00 07:00 15:00 23:00 Intake Total 120 ml 360 ml 480 ml 200 ml Output Total 2930 ml 700 ml Balance 120 ml -2570 ml -220 ml 200 ml Intake Oral 120 ml 360 ml 480 ml 200 ml Output Urine Total 2480 ml 700 ml Stool Total 450 ml Bladder Scan Volume Amount 538 ml # Voids 1 100 # Bowel Movements 1 Result Diagram: 01/02/17 1030 01/02/17 1030 Objective Remarks GENERAL: Well-developed patient in no apparent distress. SKIN: Warm and dry. There is an approximately 2.5 x 3.5 cm deep wound to the posterior R BKA stump with mild drainage on dressing. No surrounding erythema. CARDIOVASCULAR: Regular rate and rhythm. RESPIRATORY: No accessory muscle use. Clear to auscultation. Breath sounds equal bilaterally. No wheezing. GASTROINTESTINAL: Normoactive bowel sounds. Abdomen soft, non-tender, nondistended. Colostomy bag. MUSCULOSKELETAL: Right BKA noted. No lower extremity edema bilaterally. BACK: No CVA tenderness bilaterally. NEUROLOGICAL: Awake, alert, and oriented x 4. Normal speech. PSYCHIATRIC: Appropriate mood and affect. Urinary Catheter: Yes Assessment to: Continue Avendano insert reason: Obstruction/Retention Vascular Central Line Catheter: No A/P Assessment and Plan 61 years old female admitted with weakness, unable to care for herself at home. Acute kidney injury: Improving. Recurrent. BUN/Cr 56/2.7-->32/1.5. Likely secondary to doxycycline, urinary retention, UTI, and possibly dehydration. -Avendano catheter placed 01/01 with good urine output. -Doxycycline discontinued. -Telemetry reviewed with no acute events overnight. -Continue IV gentle IV hydration @ 50 mL/hr. Monitor for fluid overload. -Avoid nephrotoxins -Recheck am BMP Hyperkalemia: 5.4-->3.9. Resolved. Attributed to ALFREDO. -S/p Kayexalate 30 gm po x 1 and IV calcium gluconate 1. -Monitor BMP Rhabdomyolysis: Improving. CPK 2315-->1177. Attributed to possible fall. -Recheck am CPK Sepsis UTI: Acute. WBC 16.5-->9.5. -12/29 urine culture growing MRSA and Pseudomonas. -01/01: Clindamycin and Levaquin were started (only received one dose of Clindamycin, never got Levaquin), but ID was consulted and switched to Teflaro and Cipro. -01/02: Pseudomonas is resistant to all antibiotics tested. I contacted Dr. Garcia , ID, who advises repeating UA/culture which has been ordered. Diarrhea: Acute. -Check C.diff. Metabolic and toxic encephalopathy: Resolved. Could be attributed to renal failure and UTI, under treatment. Patient nonfocal. Awake and fully oriented. Morphine was discontinued. Neuro checks. 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 Appears non-infected. -digital research analyst has evaluated and dressed but will consult wound physician for evaluation as wound is significant. Informed Dr. De Leon is out of town and need to consult podiatry. SOB: Patient complains of some shortness of breath related to her asthma although she does not appear so, there is no wheezing on exam, and O2 saturation is normal. The patient states she uses albuterol twice daily at home. -Will order an albuterol inhaler as needed although I do not feel the patient really needs this right now. Diabetes type 2 with peripheral neuropathy, long-term use insulin: Stable Hemoglobin A1c 5.6 on 12/25. Human insulin 70/30 discontinued. Hold Metformin due to ALFREDO Continue Accu-Cheks with sliding scale insulin; has not required insulin today. BGLs controlled. Patient will not follow diabetic diet, despite extensive counseling on diabetic management. Acute blood loss anemia: Worse likely due to other acute medical issues. Status post transfusion 2 units packed red blood cells 12/23 Hemoglobin 8.4 today Repeat am CBC Chronic systolic/diastolic congestive heart failure Recent echocardiogram indicates ejection fraction 2530 percent Continue Metoprolol. Hypertension, coronary disease Low at this time Lopressor 12.5 mg twice daily with hold parameters changed to Coreg 3.125 twice daily Cozaar discontinued. PAD, Hyperlipidemia, Hx of Breast Cancer, SLE, Asthma: chronic and stable Follow clinically DVT prophylaxis Heparin, SCDs Elsy Dubois Jan 02, 2017 11:13
[2017-01-02 12:02] LABS: CKMB 19.4 NG/ML (0.5-3.6)
[2017-01-02 15:07] LABS: BLOOD, URINE SMALL (NEG); GLUCOSE,URINE NEG (NEG); KETONE, URINE NEG (NEG); NITRITE,URINE NEG (NEG)
[2017-01-02 15:26] LABS: RBC, URINE 0-3 /hpf (0-3); SQUAMOUS EPITHELIAL CELL URINE 0-5 /hpf (0-5); URINE COLOR YELLOW (YELLW/STRAW)
[2017-01-02 15:27] LABS: BACTERIA, URINE FEW /hpf
[2017-01-02 15:28] LABS: COMMENT (UR) CATH-CULTURE IND; CULTURE IF INDICATED CATH CULTURE IND
[2017-01-02] MEDS: CIPROFLOXACIN 400 MG PREMIX 200 ML IV SCH (15:52)
[2017-01-02 17:32] LABS: C. DIFF EPI 027 PRESUMPTIVE NEGATIVE (NEGATIVE); C. DIFF TOXIN PCR NEGATIVE (NEGATIVE)
--- NOTE | 2017-01-02 19:15 | HHI.IDPN ---
Subjective Subjective Remarks ID FU DR VALE NO FEVERS DIARRHEA BETTER Antibiotics TEFLARO/CIPRO DAY 2 Allergies: 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 Objective . Vital Signs Date Time Temp Pulse Resp B/P Pulse Ox O2 Delivery O2 Flow Rate FiO2 01/02/17 17:12 71 01/02/17 08:21 97.0 76 18 110/70 95 01/02/17 07:14 82 01/02/17 04:00 97.6 81 19 104/51 100 01/02/17 00:00 96.1 76 19 110/58 99 01/01/17 23:11 70 01/01/17 20:00 96.5 76 19 94/66 100 01/01/17 01/01/17 01/02/17 15:00 23:00 07:00 Intake Total 360 ml 480 ml Output Total 2930 ml 700 ml Balance -2570 ml -220 ml Intake Oral 360 ml 480 ml Output Urine Total 2480 ml 700 ml Stool Total 450 ml Bladder Scan Volume Amount 538 ml # Voids 100 # Bowel Movements 1 . Laboratory Tests Test 01/01/17 01/02/17 08:10 10:30 White Blood Count 16.5 TH/MM3 9.5 TH/MM3 Red Blood Count 3.16 MIL/MM3 3.07 MIL/MM3 Hemoglobin 8.6 GM/DL 8.4 GM/DL Hematocrit 27.2 % 26.6 % Mean Corpuscular Volume 86.2 FL 86.6 FL Mean Corpuscular Hemoglobin 27.1 PG 27.3 PG Mean Corpuscular Hemoglobin 31.5 % 31.5 % Concent Red Cell Distribution Width 17.7 % 18.0 % Platelet Count 254 TH/MM3 252 TH/MM3 Mean Platelet Volume 7.4 FL 7.2 FL Neutrophils (%) (Auto) 81.5 % 80.2 % Lymphocytes (%) (Auto) 10.2 % 9.3 % Monocytes (%) (Auto) 6.2 % 7.7 % Eosinophils (%) (Auto) 1.5 % 2.5 % Basophils (%) (Auto) 0.6 % 0.3 % Neutrophils # (Auto) 13.5 TH/MM3 7.7 TH/MM3 Lymphocytes # (Auto) 1.7 TH/MM3 0.9 TH/MM3 Monocytes # (Auto) 1.0 TH/MM3 0.7 TH/MM3 Eosinophils # (Auto) 0.2 TH/MM3 0.2 TH/MM3 Basophils # (Auto) 0.1 TH/MM3 0.0 TH/MM3 CBC Comment DIFF FINAL DIFF FINAL Differential Comment Laboratory Tests Test 01/01/17 01/02/17 01/02/17 08:10 01:23 10:30 Sodium Level 137 MEQ/L 139 MEQ/L 141 MEQ/L Potassium Level 5.4 MEQ/L 3.9 MEQ/L 3.9 MEQ/L Chloride Level 104 MEQ/L 104 MEQ/L 105 MEQ/L Carbon Dioxide Level 22.8 MEQ/L 26.9 MEQ/L 28.2 MEQ/L Anion Gap 10 MEQ/L 8 MEQ/L 8 MEQ/L Blood Urea Nitrogen 56 MG/DL 42 MG/DL 32 MG/DL Creatinine 2.70 MG/DL 1.80 MG/DL 1.50 MG/DL Estimat Glomerular Filtration 18 ML/MIN 29 ML/MIN 35 ML/MIN Rate Random Glucose 97 MG/DL 107 MG/DL 155 MG/DL Calcium Level 9.2 MG/DL 7.5 MG/DL 7.6 MG/DL Total Creatine Kinase 2315 U/L 1177 U/L Creatine Kinase MB 42.5 NG/ML 19.4 NG/ML Creatine Kinase MB % 1.8 % 1.6 % Microbiology Date/Time Procedure Status Source Growth 01/02/17 15:00 Urine Culture Received Urine Catheterized Urine Pending Physical Exam AWAKE OX3 PERRL NS CHEST DECREASED OCC WHEEZE CARDIAC RRR ABD SOFT ACTIVE EXT RIGHT STUMP / LLE NO EDEMA Assessment & Plan Diagnosis: (1) CAD (coronary artery disease) (2) Diabetes mellitus (3) Methicillin resistant Staphylococcus aureus infection (4) Amputation of right lower extremity below knee (5) UTI (urinary tract infection) Plan: PT WITH MDR PAE AND MRSA WBC NORMAL CLINICALLY STABLE ? 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
[2017-01-02] MEDS: MONTELUKAST SODIUM 10 MG TAB PO SCH (20:42)
[2017-01-02] MEDS: ATORVASTATIN 40 MG TAB PO SCH (20:42)
[2017-01-02] MEDS: ONDANSETRON ODT 4 MG TAB PO PRN (22:38)
[2017-01-03] VITALS: BP 130/61; PULSE 70; RESP 16; TEMP 98.1; O2SAT 100
[2017-01-03] MEDS: oxyCODONE/ACETAMINOPHEN 5 MG/325 MG TAB PO PRN ×5 (02:17→22:02)
[2017-01-03 04:00] VITALS: BP 127/61; PULSE 72; RESP 18; TEMP 96.7; O2SAT 99
[2017-01-03] MEDS: SODIUM CHLOR 0.9% 1000 ML INJ 1,000 ML IV SCH (04:36)
[2017-01-03 05:31] LABS: AUTOMATED NEUTROPHIL # 5.5 TH/MM3 (1.8-7.7); BASOPHIL % 0.5 % (0.0-2.0); EOSINOPHIL # 0.4 TH/MM3 (0-0.4); EOSINOPHIL % 4.5 % (0.0-4.0); HEMATOCRIT 29.6 % (35.0-46.0); HEMO FLAGS DIFF FINAL; LYMPH % 19.9 % (9.0-44.0); LYMPHOCYTE # 1.7 TH/MM3 (1.0-4.8); MEAN CELL VOLUME 84.6 FL (80.0-100.0); MEAN CORPUSCULAR HEMOGLOBIN 26.2 PG (27.0-34.0); MONO % 12.5 % (0.0-8.0); NEUT % 62.6 % (16.0-70.0); PLATELET COUNT 312 TH/MM3 (150-450); RED CELL DISTRIBUTION WIDTH 17.4 % (11.6-17.2); WHITE BLOOD COUNT 8.7 TH/MM3 (4.0-11.0)
[2017-01-03 05:43] LABS: POTASSIUM 3.6 MEQ/L (3.5-5.1)
[2017-01-03 05:46] LABS: BICARBONATE 29.5 MEQ/L (21.0-32.0)
[2017-01-03] MEDS: GABAPENTIN 300 MG CAP PO SCH (06:19)
[2017-01-03] MEDS: HEPARIN SODIUM - SQ 10,000 UNITS/ML VIAL SQ SCH ×3 (06:20→22:03)
[2017-01-03 06:48] LABS: CKMB 7.6 NG/ML (0.5-3.6)
[2017-01-03] MEDS: INSULIN ASPART SUPPLEMENTAL SCALE SQ SCH ×4 (06:57→21:00)
[2017-01-03 08:00] VITALS: BP 138/81; PULSE 78; RESP 18; TEMP 98.7; O2SAT 97
[2017-01-03] MEDS: LACTOBACILLUS ACIDOPHILUS TAB PO SCH ×3 (09:00→17:26)
[2017-01-03] MEDS: NYSTATIN 100,000 U/GM OINT 15 GM TUBE TOPICAL SCH ×2 (09:00→21:00)
[2017-01-03] MEDS: CEFTAROLINE INJ 400 MG in SODIUM CHLORIDE 0.9% INJ 100 ML IV SCH (09:32)
[2017-01-03] MEDS: ASPIRIN 81 MG CHEW TAB PO SCH (09:33)
[2017-01-03] MEDS: AMIODARONE 200 MG TAB PO SCH (09:33)
[2017-01-03] MEDS: CARVEDILOL 3.125 MG TAB PO SCH ×2 (09:33→22:02)
[2017-01-03] MEDS: DULoxetine HCl DR 60 MG CAP PO SCH (09:33)
[2017-01-03] MEDS: FLUCONAZOLE 100 MG TAB PO SCH (09:34)
[2017-01-03] MEDS: COLLAGENASE OINT 30 GM TUBE TOPICAL SCH (09:35)
--- NOTE | 2017-01-03 10:01 | HHI.IDPN ---
Subjective Subjective Remarks Feels better Wants york out No fevers Wound on stump. No more diarrhea Antibiotics TEFLARO- Day 3 Lines Peripheral Past Medical History Diabetes RT Leg BKA SLE Breast Cancer CAD Allergies: 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 Objective . Vital Signs Date Time Temp Pulse Resp B/P Pulse Ox O2 Delivery O2 Flow Rate FiO2 01/03/17 08:00 98.7 78 18 138/81 97 Automatic Cuff 01/03/17 04:00 96.7 72 18 127/61 99 01/03/17 00:00 98.1 70 16 130/61 100 01/02/17 23:00 91 01/02/17 20:00 98.1 80 16 127/64 100 01/02/17 17:12 71 01/02/17 01/02/17 01/03/17 15:00 23:00 07:00 Intake Total 200 ml 1480 ml 1130 ml Output Total 2500 ml 1000 ml Balance 200 ml -1020 ml 130 ml Intake Oral 200 ml 1480 ml 480 ml IV Total 650 ml Output Urine Total 2500 ml 1000 ml Stool Total 0 ml # Bowel Movements 0 . Laboratory Tests Test 01/02/17 01/03/17 10:30 05:03 White Blood Count 9.5 TH/MM3 8.7 TH/MM3 Red Blood Count 3.07 MIL/MM3 3.50 MIL/MM3 Hemoglobin 8.4 GM/DL 9.2 GM/DL Hematocrit 26.6 % 29.6 % Mean Corpuscular Volume 86.6 FL 84.6 FL Mean Corpuscular Hemoglobin 27.3 PG 26.2 PG Mean Corpuscular Hemoglobin 31.5 % 31.0 % Concent Red Cell Distribution Width 18.0 % 17.4 % Platelet Count 252 TH/MM3 312 TH/MM3 Mean Platelet Volume 7.2 FL 7.2 FL Neutrophils (%) (Auto) 80.2 % 62.6 % Lymphocytes (%) (Auto) 9.3 % 19.9 % Monocytes (%) (Auto) 7.7 % 12.5 % Eosinophils (%) (Auto) 2.5 % 4.5 % Basophils (%) (Auto) 0.3 % 0.5 % Neutrophils # (Auto) 7.7 TH/MM3 5.5 TH/MM3 Lymphocytes # (Auto) 0.9 TH/MM3 1.7 TH/MM3 Monocytes # (Auto) 0.7 TH/MM3 1.1 TH/MM3 Eosinophils # (Auto) 0.2 TH/MM3 0.4 TH/MM3 Basophils # (Auto) 0.0 TH/MM3 0.0 TH/MM3 CBC Comment DIFF FINAL DIFF FINAL Differential Comment Laboratory Tests Test 01/02/17 01/02/17 01/03/17 01:23 10:30 05:03 Sodium Level 139 MEQ/L 141 MEQ/L 146 MEQ/L Potassium Level 3.9 MEQ/L 3.9 MEQ/L 3.6 MEQ/L Chloride Level 104 MEQ/L 105 MEQ/L 110 MEQ/L Carbon Dioxide Level 26.9 MEQ/L 28.2 MEQ/L 29.5 MEQ/L Anion Gap 8 MEQ/L 8 MEQ/L 7 MEQ/L Blood Urea Nitrogen 42 MG/DL 32 MG/DL 18 MG/DL Creatinine 1.80 MG/DL 1.50 MG/DL 1.00 MG/DL Estimat Glomerular Filtration 29 ML/MIN 35 ML/MIN 57 ML/MIN Rate Random Glucose 107 MG/DL 155 MG/DL 91 MG/DL Calcium Level 7.5 MG/DL 7.6 MG/DL 7.5 MG/DL Total Creatine Kinase 1177 U/L 640 U/L Creatine Kinase MB 19.4 NG/ML 7.6 NG/ML Creatine Kinase MB % 1.6 % 1.2 % Microbiology Date/Time Procedure Status Source Growth 01/02/17 15:00 Urine Culture Received Urine Catheterized Urine Pending Physical Exam AWAKE OX3 PERRL NS CHEST DECREASED OCC WHEEZE CARDIAC RRR ABD SOFT ACTIVE EXT RIGHT STUMP with wound / LLE NO EDEMA Assessment & Plan Diagnosis: (1) CAD (coronary artery disease) (2) Diabetes mellitus (3) Methicillin resistant Staphylococcus aureus infection (4) Amputation of right lower extremity below knee (5) UTI (urinary tract infection) Plan: Culture with MRSA and MDR- Pseudomonas Repeat Urine culture pending WBC back to normal, kidney function improved and clinically improved Follow repeat Urine culture Stop Teflaro Start Doxy 100 mg po bid If repeat urine culture with resistant Pseudomonas- may need to consider Zerbaxa ( Ceftolozane/ Tazobactam) (6) Diarrhea Plan: Resolved Bhanu C diff negative Problem Qualifiers (1) Diabetes mellitus: (2) UTI (urinary tract infection): Vianey Garcia MD Jan 03, 2017 10:01
--- NOTE | 2017-01-03 11:06 | HHI.PR ---
Subjective Remarks Follow-up for UTI, AKl, diarrhea. Patient states she was cold last night but denies any actual fevers or chills. She only had 1 episode of diarrhea yesterday. States she felt nauseous and has pain in her right BKA stump. Denies chest pain, palpitations, or shortness of breath. Physical therapist later informed me that patient now has a foot drop on the Left. Patient admits to feeling sore in the Left leg and states it along with limited foot movement began after she fell the other night. Objective Vitals Vital Signs Date Time Temp Pulse Resp B/P Pulse Ox O2 Delivery O2 Flow Rate FiO2 01/03/17 08:00 98.7 78 18 138/81 97 Automatic Cuff 01/03/17 04:00 96.7 72 18 127/61 99 01/03/17 00:00 98.1 70 16 130/61 100 01/02/17 23:00 91 01/02/17 20:00 98.1 80 16 127/64 100 01/02/17 17:12 71 I/O 01/02/17 01/02/17 01/02/17 01/03/17 01/03/17 01/03/17 07:00 15:00 23:00 07:00 15:00 23:00 Intake Total 480 ml 200 ml 1480 ml 1130 ml Output Total 700 ml 2500 ml 1000 ml Balance -220 ml 200 ml -1020 ml 130 ml Intake Oral 480 ml 200 ml 1480 ml 480 ml IV Total 650 ml Output Urine Total 700 ml 2500 ml 1000 ml Stool Total 0 ml # Bowel Movements 0 Result Diagram: 01/03/17 0503 01/03/17 0503 Objective Remarks GENERAL: Well-developed patient in no apparent distress. SKIN: Warm and dry. Roxy wrap to R BKA stump. Dressings to R foot. CARDIOVASCULAR: Regular rate and rhythm. RESPIRATORY: No accessory muscle use. Clear to auscultation. Breath sounds equal bilaterally. GASTROINTESTINAL: Normoactive bowel sounds on the right. Abdomen soft, non- tender, nondistended. Ostomy on the left. MUSCULOSKELETAL: Right BKA noted. Left patella is mildly ballotable. Patient is able to sufficiently actively flex the L knee but does so slowly. Full extension of the L knee. Left lower leg is non-edematous. "Sore" with palpation , generalized, over the L knee and lower leg. Non tender around the left ankle but patient states she has loss of feeling in this region. Intact left DP pulse. BACK: No CVA tenderness bilaterally. NEUROLOGICAL: Awake and alert. Left foot drop noted. Patient cannot actively plantar flex or dorsiflex the Left foot. Normal speech. PSYCHIATRIC: Appropriate mood and affect. Urinary Catheter: Yes Assessment to: Remove Avendano insert reason: Obstruction/Retention Date of Insertion: January 01, 2017 Vascular Central Line Catheter: No A/P Assessment and Plan 61 years old female admitted with weakness, unable to care for herself at home. Acute kidney injury: Resolved. Recurrent. BUN/Cr 56/2.7-->18/1.0. Likely secondary to urinary retention, UTI, Doxycycline, and possibly dehydration. -Avendano catheter placed 01/01 with good urine output. -Doxycycline was initially discontinued. -Avoid nephrotoxins -Discontinue IV fluids. Hyperkalemia: 5.4-->3.6. Resolved. Attributed to ALFREDO. -S/p Kayexalate 30 gm po x 1 and IV calcium gluconate 1. -Telemetry reviewed with no significant events overnight. Discontinue telemetry. -Monitor BMP Rhabdomyolysis: Improving. CPK 2315-->640. Attributed to possible fall. -Continue to trend CPK Sepsis UTI: Acute. WBC 16.5-->8.7. -12/29 urine culture growing MRSA and Pseudomonas. -01/01: Clindamycin and Levaquin were started (only received one dose of Clindamycin, never got Levaquin), but ID was consulted and switched to Teflaro and Cipro. -01/02: Pseudomonas is resistant to all antibiotics tested. I contacted Dr. Garcia , ID, who advises repeating UA/culture. -01/03: Per ID Teflaro and Cipro stopped. Patient restarted on Doxycycline 100 mg po bid (renal failure resolved). ID states if repeat UA is again with resistant Pseudomonas can consider Zerbaxa. Preliminary urine culture 01/02 with yeast; patient already on treatment with fluconazole per ID. Diarrhea: Improved. Could be attributed to Clindamycin. -C.diff. negative Metabolic and toxic encephalopathy: Resolved. Could be attributed to renal failure and UTI, under treatment. Patient nonfocal. Awake and fully oriented. Morphine was discontinued. Neuro checks. Status post R BKA, neuropathy from amputation, with diabetic neuropathy, with inability to take care for self at home: Continue physical therapy Current pain control Continue gabapentin, Cymbalta Percocet 5/325 one tab every 6 hours as needed for pain 6-10 Morphine was discontinued due to significant somnolence Wound R BKA stump: Evaluated by myself and womens volleyball coach. Appears significant but non-infected. -ruby software developer has evaluated and dressed but will consult wound physician for evaluation as wound is significant. Wound physician was consulted but apparently Dr. De Leon is out of town. Podiatry was consulted but they will not see patient as she has no foot. I have reconsulted wound care Dr. Sharif as there is no other plastics coverage either. Left drop foot: Acute. May have had peroneal nerve injury from supposed fall the other night. Generalized tenderness of the L knee and lower leg. States she was able to flex the knee more easily prior to fall. Previous L distal fibula fracture; patient currently in fracture boot. Patient states she cannot feel her L ankle. -Obtain L knee and new L ankle x-rays to first evaluate for fracture. -Consult podiatry for evaluation. Diabetes type 2 with peripheral neuropathy, long-term use insulin: Stable Hemoglobin A1c 5.6 on 12/25. Human insulin 70/30 discontinued. Hold Metformin due to ALFREDO Continue Accu-Cheks with sliding scale insulin; has not required insulin today. BGLs controlled. Patient will not follow diabetic diet, despite extensive counseling on diabetic management. Acute blood loss anemia: Improved. Status post transfusion 2 units packed red blood cells 12/23 Hemoglobin 9.2 today from 8.4 yesterday. Chronic systolic/diastolic congestive heart failure Recent echocardiogram indicates ejection fraction 2530 percent Continue Metoprolol. Hypertension, coronary disease Low at this time Lopressor 12.5 mg twice daily with hold parameters changed to Coreg 3.125 twice daily Cozaar discontinued. PAD, Hyperlipidemia, Hx of Breast Cancer, SLE, Asthma: chronic and stable Follow clinically DVT prophylaxis Heparin, SCDs Elsy Dubois Jan 03, 2017 11:06
[2017-01-03] MEDS ORDERED: LEVOFLOXACIN/DEXTROSE 250 MG/50 ML IV SCH (12:00)
--- NOTE | 2017-01-03 14:53 | RADHPO ---
EXAM DATE/TIME: 01/03/2017 14:39 [facility] COMPARISON: ANKLE LEFT COMPLETE ([id number]), December 17, 2016, 13:55. INDICATIONS : Left ankle pain MEDICAL HISTORY : Diabetes mellitus type II. Lupus. SURGICAL HISTORY : None. ENCOUNTER: Initial ACUITY: 1 month PAIN SCORE: 2/10 LOCATION: Left ankle FINDINGS: 3 views of left ankle. Distal left fibula fracture again identified with some bone callus but no adva nced bone bridging. No change in alignment. Ankle mortise intact. Moderate sized plantar calcaneal sp ur. CONCLUSION: No significant interval change. Distal fibula shaft fracture again identified with some bone callus. No new fracture identified. Richar Rios MD on January 03, 2017 at 14:48 Board Certified Radiologist. This report was verified electronically.
--- NOTE | 2017-01-03 15:33 | RADHPO ---
EXAM DATE/TIME: 01/03/2017 14:39 [facility] COMPARISON: No previous studies available for comparison. INDICATIONS : Left knee pain MEDICAL HISTORY : Lupus. Diabetes mellitus type II. SURGICAL HISTORY : None. ENCOUNTER: Initial ACUITY: 1 month PAIN SCORE: 4/10 LOCATION: Left knee FINDINGS: 2 views left knee. Focal subchondral bony concavity measuring 1.1 cm the central weightbearing surfac e of the medial femoral condyle with prominent surrounding bony sclerosis. Mild medial compartment na rrowing. 1.2 cm subchondral cyst of the lateral femoral condyle. Alignment within normal limits. No e vidence of fracture. CONCLUSION: 1 cm osteochondral abnormality of the central medial femoral condyle. Mild medial compartment narrowi ng. Richar Rios MD on January 03, 2017 at 15:29 Board Certified Radiologist. This report was verified electronically.
[2017-01-03] MEDS: metFORMIN HCL 500 MG TAB PO SCH (17:26)
[2017-01-03 20:00] VITALS: BP 151/76; PULSE 77; RESP 16; TEMP 98.1; O2SAT 100
[2017-01-03] MEDS: MONTELUKAST SODIUM 10 MG TAB PO SCH (22:02)
[2017-01-03] MEDS: DOXYCYCLINE HYCLATE 100 MG CAP PO SCH (22:02)
[2017-01-03] MEDS: ATORVASTATIN 40 MG TAB PO SCH (22:02)
[2017-01-03] MEDS: TEMAZEPAM 7.5 MG CAP PO PRN (22:02)
[2017-01-04] MEDS: oxyCODONE/ACETAMINOPHEN 5 MG/325 MG TAB PO PRN ×6 (02:00→21:11)
[2017-01-04] MEDS: HEPARIN SODIUM - SQ 10,000 UNITS/ML VIAL SQ SCH ×3 (06:05→21:13)
[2017-01-04] MEDS: GABAPENTIN 300 MG CAP PO SCH (06:05)
[2017-01-04] MEDS: INSULIN ASPART SUPPLEMENTAL SCALE SQ SCH ×4 (06:22→21:00)
[2017-01-04 08:00] VITALS: BP 147/80; PULSE 74; RESP 18; TEMP 97.5; O2SAT 97
[2017-01-04] MEDS: AMIODARONE 200 MG TAB PO SCH (09:28)
[2017-01-04] MEDS: FLUCONAZOLE 100 MG TAB PO SCH (09:28)
[2017-01-04] MEDS: CARVEDILOL 3.125 MG TAB PO SCH ×2 (09:28→21:11)
[2017-01-04] MEDS: ASPIRIN 81 MG CHEW TAB PO SCH (09:28)
[2017-01-04] MEDS: DULoxetine HCl DR 60 MG CAP PO SCH (09:28)
[2017-01-04] MEDS: metFORMIN HCL 500 MG TAB PO SCH ×2 (09:28→17:37)
[2017-01-04] MEDS: NYSTATIN 100,000 U/GM OINT 15 GM TUBE TOPICAL SCH ×2 (09:29→21:13)
[2017-01-04] MEDS: DOXYCYCLINE HYCLATE 100 MG CAP PO SCH ×2 (09:29→21:00)
[2017-01-04] MEDS: COLLAGENASE OINT 30 GM TUBE TOPICAL SCH (09:30)
[2017-01-04] MEDS: LACTOBACILLUS ACIDOPHILUS TAB PO SCH ×3 (09:35→17:37)
--- NOTE | 2017-01-04 11:32 | HHI.PR ---
Subjective Remarks Follow up for UTI, right BKA stump wound, left foot drop. Patient denies any fevers or chills. Denies any shortness of breath, abdominal pain, nausea, vomiting, or further diarrhea. Patient denies any numbness or tingling in the upper extremities. She denies any back pain or injury to the back. She admits to some numbness and tingling in the left lower extremity but is unsure if this is new or not. She admits to always having some loss of sensation in her left foot but states it is worse now. Objective Vitals Vital Signs Date Time Temp Pulse Resp B/P Pulse Ox O2 Delivery O2 Flow Rate FiO2 01/04/17 08:00 97.5 74 18 147/80 97 01/04/17 07:05 18 01/03/17 20:00 98.1 77 16 151/76 100 I/O 01/03/17 01/03/17 01/03/17 01/04/17 01/04/17 01/04/17 07:00 15:00 23:00 07:00 15:00 23:00 Intake Total 1130 ml 500 ml 480 ml 480 ml 300 ml Output Total 1000 ml 2200 ml Balance 130 ml -1700 ml 480 ml 480 ml 300 ml Intake Oral 480 ml 480 ml 480 ml 300 ml IV Total 650 ml 500 ml 0 ml Output Urine Total 1000 ml 2200 ml Stool Total 0 ml # Voids 2 4 # Bowel Movements 0 0 Result Diagram: 01/03/17 0503 01/03/17 0503 Objective Remarks GENERAL: Well-developed patient in no apparent distress. SKIN: Warm and dry. Dressing to R BKA stump. Dressings to left foot. CARDIOVASCULAR: Regular rate and rhythm. RESPIRATORY: No accessory muscle use. Clear to auscultation. Breath sounds equal bilaterally. GASTROINTESTINAL: Normoactive bowel sounds. Abdomen soft, non-tender, nondistended. MUSCULOSKELETAL: Right BKA stump. 2+ left DP and TP pulses. BACK: No tenderness over cervical, thoracic, or lumbar spine. Lateral ROM of neck fully intact. No CVA tenderness bilaterally. NEUROLOGICAL: Awake and alert. Sensation grossly intact over bilateral thighs and left lower leg. Gross sensation absent over dorsal left foot and toes. 5/ 5 quadriceps strength bilaterally. Left foot drop noted. Unable to move L foot or toes. Normal speech. PSYCHIATRIC: Appropriate mood and affect. Urinary Catheter: No Date of Insertion: January 01, 2017 Date of Removal: Jan 03, 2017 Vascular Central Line Catheter: No A/P Assessment and Plan 61 years old female admitted with weakness, unable to care for herself at home. Acute kidney injury: Resolved. Recurrent. BUN/Cr 56/2.7-->18/1.0. Likely secondary to urinary retention, UTI, Doxycycline, and possibly dehydration. -Avendano catheter placed 01/01 with good urine output. -Doxycycline was initially discontinued. -Avoid nephrotoxins -IV fluids discontinued. -Repeat am BMP Hyperkalemia: 5.4-->3.6. Resolved. Attributed to ALFREDO. -S/p Kayexalate 30 gm po x 1 and IV calcium gluconate 1. -Telemetry reviewed with no significant events, discontinued. -Monitor BMP Rhabdomyolysis: Improving. CPK 2315-->640. Attributed to possible fall or could be related to BKA wound. -Repeat am CPK Sepsis UTI: Acute. Improved. WBC 16.5-->8.7. -12/29 urine culture growing MRSA and Pseudomonas. -01/01: Clindamycin and Levaquin were started (only received one dose of Clindamycin, never got Levaquin), but ID was consulted and switched to Teflaro and Cipro. -01/02: Pseudomonas is resistant to all antibiotics tested. I contacted Dr. Garcia , ID, who advises repeating UA/culture. -01/03: Per ID Teflaro and Cipro stopped. Patient restarted on Doxycycline 100 mg po bid (renal failure resolved). ID states if repeat UA is again with resistant Pseudomonas can consider Zerbaxa. Preliminary urine culture 01/02 with yeast. -01/04: Final urine culture 01/02 with lilibeth albicans. Patient already on Fluconazole 100 mg po daily; has received [address] Garcia, ID, who states patient needs total of 5 days treatment. Diarrhea: Resolved. Could be attributed to Clindamycin. -C.diff. negative Metabolic and toxic encephalopathy: Resolved. Could be attributed to renal failure and UTI, under treatment. Patient nonfocal. Awake and fully oriented. Morphine was discontinued. Neuro checks. Status post R BKA 11/15/16, neuropathy from amputation, with diabetic neuropathy , with inability to take care for self at home: Continue physical therapy Current pain control Continue gabapentin, Cymbalta All narcotics were discontinued due to encephalopathy/fall. Wound R BKA stump: -Wound care physician Dr. De Leon has evaluated the patient today. Wound culture ordered. Advises packing R leg stump wound with Maxorb extra AG, cover with 4 x 4's and Roxy. He has placed consult for Dr. Wakefield for evaluation of revision of BKA to AKA. -Patient was on po Doxy for UTI which is no longer necessary but will keep on board to cover potential MRSA in wound. Dr. Garcia, ID informed. Will await wound culture. -Patient refuses MRI RLE due to claustrophobia. RN informed patient we could give her Ativan prior to test, but she still refused. -Repeat am CBC with diff. Left drop foot: Acute. May have had peroneal nerve injury from supposed fall the other night; also has previous L distal fibula fracture; patient currently in fracture boot. -01/03: L knee and foot x-rays without new fracture. -01/04: Podiatry, Dr. Snider has evaluated patient today. States deep peroneal nerve compression could be from sitting/lying position/long hospitalization, or lumbar radiculopathy. Recommendations as follows: Continue wearing boot to keep foot/lower leg at 90 degrees and stabilized to prevent falls. Consider AFO if symptoms continue long-term. Consider neuro consult for EMG/Nerve conduction studies if symptoms persist -Patient refuses MRI L spine. Diabetes type 2 with peripheral neuropathy, long-term use insulin: Stable Hemoglobin A1c 5.6 on 12/25. Human insulin 70/30 discontinued. Metformin restarted as ALFREDO has resolved. Continue Accu-Cheks with sliding scale insulin; has not required insulin today. BGLs controlled. Patient will not follow diabetic diet, despite extensive counseling on diabetic management. Acute blood loss anemia: Improved. Status post transfusion 2 units packed red blood cells 12/23 01/03: Hemoglobin 9.2 Chronic systolic/diastolic congestive heart failure Recent echocardiogram indicates ejection fraction 2530 percent Continue Metoprolol. Hypertension, coronary disease Low at this time Lopressor 12.5 mg twice daily with hold parameters changed to Coreg 3.125 twice daily Cozaar discontinued. PAD, Hyperlipidemia, Hx of Breast Cancer, SLE, Asthma: chronic and stable Follow clinically DVT prophylaxis Heparin, SCDs Patient management discussed with Dr. Potter, attending. Elsy Dubois Jan 04, 2017 11:32
--- NOTE | 2017-01-04 11:56 | PD.POD ---
Subjective Podiatric Problems Drop foot L Pain score: 0 Past Med/Surg/Social History Social History Smoking Status: Never Smoker Objective Vital Signs Vital Signs Date Time Temp Pulse Resp B/P Pulse Ox O2 Delivery O2 Flow Rate FiO2 01/04/17 08:00 97.5 74 18 147/80 97 01/04/17 07:05 18 01/03/17 20:00 98.1 77 16 151/76 100 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 Physical Exam Remarks Unable to plantarflex or dorsiflex foot at ankle. Assessment & Plan A/P Foot drop R Likely deep peroneal nerve compromised for unknown reason. Could be compression of nerve based on sitting/lying position, due to long hospitalization? She states she has been complaining of hip pain on same side, so lumbar radiculopathy also possible. Continue wearing boot that she has bedside to keep foot/lower leg at 90 degrees and stabilized to prevent falls. Consider AFO if symptoms continue long-term. Consider neuro consult for EMG/Nerve conduction studies if symptoms persist Podiatry signing off Dana Snider DPM Jan 04, 2017 11:55
--- NOTE | 2017-01-04 13:57 | PD.WOU.CON ---
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 Cooper. Patient was admitted for other problems and it was noted that she had an open wound on the posterior aspect of the right stump. Large amounts of purulent drainage was expressed from the wound. No culture has been obtained. Wound is just being packed with Nu Gauze. 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 Preferred Language to Discuss: Arabic Barriers to Learning: None Teaching Method: Discussion Vital Signs Date Time Temp Pulse Resp B/P Pulse Ox O2 Delivery O2 Flow Rate FiO2 01/04/17 10:35 18 01/04/17 08:00 97.5 74 18 147/80 97 01/03/17 20:00 98.1 77 16 151/76 100 Pain scale used: 0-10 numeric scale Pain score: 1 Medications Current Medications Oxycodone/ Acetaminophen 2 tab 2 tab ONCE ONCE PO Last administered on 18:43; Start 12/13/16 at 18:45; Stop 12/13/16 at 18:46; Status DC Sodium Chloride (NS 1000 ml Inj) 1,000 ml @ 80 mls/hr [id number] IV Last administered on 12/14/16 06:07; Start 12/13/16 at 19:16; Stop 12/15/16 at 09:02 ; Status DC Sodium Chloride (NS Flush) 2 ml UNSCH PRN IV FLUSH FLUSH AFTER USING IV ACCESS ; Start 12/13/16 at 19:30; Stop 12/25/16 at 10:04; Status DC Sodium Chloride (NS Flush) 2 ml BID IV FLUSH Last administered on 12/25/16 09: 01; Start 12/13/16 at 21:00; Stop 12/25/16 at 10:04; Status DC Ondansetron HCl (Zofran Inj) 4 mg Q6H PRN IVP NAUSEA OR VOMITING; Start at 19:30; Stop 12/25/16 at 10:47; Status DC Bisacodyl (Dulcolax Supp) 10 mg DAILY PRN RECTAL CONSTIPATION; Start 12/13/16 at 19:30 Acetaminophen (Tylenol) 650 mg Q6H PRN PO FEVER/PAIN SCALE 1 TO 5; Start at 19:30 Oxycodone/ Acetaminophen (Percocet 5-325 Mg) 1 tab Q6H PRN PO PAIN SCALE 3 TO 5; Start 12/13/16 at 19:30; Stop 12/18/16 at 09:16; Status DC Oxycodone/ Acetaminophen (Percocet 10-325 Mg) 1 tab Q6H PRN PO PAIN SCALE 6 TO 10 Last administered on 12/18/16 08:29; Start 12/13/16 at 19:30; Stop 12/18/16 at 09:16; Status DC Dextrose (D50w (Vial) Inj) 25 ml UNSCH PRN IV PUSH HYPOGLYCEMIA-SEE COMMENTS; Start 12/13/16 at 19:30 Glucagon (Glucagon Inj) 1 mg UNSCH PRN OTHER HYPOGLYCEMIA-SEE COMMENTS; Start 12/13/16 at 19:30 Insulin Aspart (NovoLOG SUPPLEMENTAL SCALE) 1 ACHS SLIDING SCALE SQ Last administered on 12/31/16 21:26; Start 12/13/16 at 21:00; Stop 01/01/17 at 11:52 ; Status DC Amiodarone HCl (Cordarone) 200 mg DAILY PO Last administered on 01/04/17 09:28 ; Start 12/14/16 at 09:00 Aspirin (Aspirin Chew) 81 mg DAILY PO Last administered on 01/04/17 09:28; Start 12/14/16 at 09:00 Atorvastatin Calcium (Lipitor) 40 mg HS PO Last administered on 01/03/17 22:02 ; Start 12/13/16 at 21:00 Duloxetine HCl (Pujaalta ) 60 mg BID PO Last administered on 12/13/16 21:57 ; Start 12/13/16 at 21:00; Stop 12/14/16 at 15:26; Status DC Gabapentin (Neurontin) 300 mg Q6HR PO Last administered on 01/01/17 06:11; Start 12/14/16 at 00:00; Stop 01/01/17 at 10:28; Status DC Insulin Human Isoph/Insulin Regular (NovoLIN 70/30 INJ) 30 units BID SQ Last administered on 12/14/16 08:50; Start 12/13/16 at 21:00; Stop 12/14/16 at 15:26 ; Status DC Losartan Potassium (Cozaar) 25 mg DAILY PO Last administered on 12/29/16 08:34 ; Start 12/14/16 at 09:00; Stop 12/29/16 at 13:29; Status DC Montelukast Sodium (Singulair) 10 mg HS PO Last administered on 01/03/17 22:02 ; Start 12/13/16 at 21:00 Prednisone (Deltasone) 20 mg BID PO Last administered on 12/15/16 20:58; Start 12/13/16 at 21:00; Stop 12/16/16 at 11:50; Status DC Senna/Docusate Sodium (Anali-Colace) 1 tab BID PRN PO Constipation; Start at 19:30 Albuterol/ Ipratropium (Duoneb Neb) 1 ampule Q4HR NEB PRN NEB SOB/WHEEZING; Start 12/13/16 at 19:30; Stop 12/25/16 at 10:06; Status DC Calcium Gluconate (Calcium Gluconate Inj) 1 gm ONCE ONCE IV PUSH Last administered on 12/13/16 21:55; Start 12/13/16 at 20:30; Stop 12/13/16 at 20:31 ; Status DC Duloxetine HCl (Cymbalta Dr) 60 mg DAILY PO Last administered on 01/04/17 09:28 ; Start 12/15/16 at 09:00 Insulin Human Isoph/Insulin Regular (NovoLIN 70/30 INJ) 15 units BID SQ Last administered on 12/26/16 10:18; Start 12/14/16 at 21:00; Stop 12/26/16 at 12:08 ; Status DC Metoprolol Tartrate (Lopressor) 12.5 mg BID PO Last administered on 12/16/16 12:07; Start 12/16/16 at 11:30; Stop 12/16/16 at 14:06; Status DC Miscellaneous (Pill Splitter) 1 ea UNSCH PRN OTHER SEE LABEL COMMENTS; Start at 11:15 Metoprolol Tartrate (Lopressor) 25 mg BID PO Last administered on 12/29/16 08: 34; Start 12/16/16 at 21:00; Stop 12/29/16 at 13:02; Status DC Hydralazine HCl (Apresoline) 25 mg Q12HR PO Last administered on 12/17/16 08: 34; Start 12/16/16 at 21:00; Stop 12/17/16 at 17:40; Status DC Collagenase (Santyl Oint) 1 applic DAILY TOPICAL Last administered on 01/04/17 09:30; Start 12/17/16 at 09:00 Hydralazine HCl (Apresoline) 25 mg Q8HR PO Last administered on 12/21/16 05:56 ; Start 12/17/16 at 18:00; Status Hold Oxycodone/ Acetaminophen (Percocet 5-325 Mg) 1 tab Q4HR PRN PO PAIN SCALE 3 TO 5 Last administered on 12/26/16 01:41; Start 12/18/16 at 12:00; Stop at 11:53; Status DC Oxycodone/ Acetaminophen (Percocet 10-325 Mg) 1 tab Q4HR PRN PO PAIN SCALE 6 TO 10 Last administered on 12/24/16 00:41; Start 12/18/16 at 12:00; Stop at 13:43; Status DC Morphine Sulfate (Oramorph Sr) 15 mg Q12HR PO Last administered on 12/21/16 08 :41; Start 12/19/16 at 21:00; Stop 12/21/16 at 11:14; Status DC Morphine Sulfate (Oramorph Sr) 15 mg ONCE ONCE PO Last administered on 10:59; Start 12/19/16 at 10:00; Stop 12/19/16 at 10:01; Status DC Morphine Sulfate (Oramorph Sr) 15 mg DAILY PO Last administered on 12/23/16 08 :44; Start 12/22/16 at 09:00; Stop 12/24/16 at 11:43; Status DC Midodrine 5 mg 5 mg ONCE ONCE PO Last administered on 12/21/16 12:36; Start 12/21/16 at 12:15; Stop 12/21/16 at 12:23; Status DC Sodium Chloride 1,000 ml @ 999 mls/hr BOLUS ONCE IV Last administered on 12/21 12:35; Start 12/21/16 at 12:15; Stop 12/21/16 at 13:15; Status DC Ceftriaxone Sodium 1000 mg/ Sodium Chloride 100 ml @ 200 mls/hr Q24H IV ; Start 12/21/16 at 12:15; Stop 12/21/16 at 12:32; Status DC Levofloxacin/ Dextrose (Levaquin 750 Mg Premix Inj) 150 ml @ 100 mls/hr Q24H IV Last administered on 12/23/16 12:13; Start 12/21/16 at 14:00; Stop at 08:25; Status DC Naloxone HCl 0.4 mg 0.4 mg ONCE ONCE IV PUSH Last administered on 12/21/16 13 :58; Start 12/21/16 at 13:30; Stop 12/21/16 at 13:40; Status DC Norepinephrine Bitartrate (Levophed-Dextrose Drip) 250 ml @ 0 mls/hr TITRATE IV Last administered on 12/21/16 16:19; Start 12/21/16 at 15:00; Stop 12/25/16 at 10:04; Status DC Terbutaline Sulfate 1 mg 1 mg UNSCH PRN SQ For Extravasation; Start 12/21/16 at 15:00; Stop 12/25/16 at 10:04; Status DC Vancomycin HCl 1000 mg/Sodium Chloride 250 ml @ 250 mls/hr Q12H IV Last administered on 12/25/16 04:02; Start 12/21/16 at 16:00; Stop 12/25/16 at 09:02 ; Status DC Sodium Chloride/ Sodium Chloride 2,000 ml @ 999 mls/hr BOLUS ONCE IV Last administered on 12/21/16 18:13; Start 12/21/16 at 16:30; Stop 12/21/16 at 18:30 ; Status DC Aztreonam/Sodium Chloride (Azactam Inj/NS Inj) 100 ml @ 200 mls/hr Q8H IV Last administered on 12/25/16 01:03; Start 12/21/16 at 17:00; Stop 12/25/16 at 09:02; Status DC Miscellaneous Information Patient in critical care unit? Ass... [id number] Last administered on 12/21/16 18:00; Start 12/21/16 at 18:00; Stop 12/25/16 at 10:06; Status DC Chlorhexidine Gluconate (Chlorhexidine 2% Cloth) 3 pack DAILY@04 TOPICAL Last administered on 12/24/16 04:00; Start 12/22/16 at 04:00; Stop 12/25/16 at 10:04 ; Status DC Chlorhexidine Gluconate (Chlorhexidine 2% Cloth) 3 pack UNSCH PRN TOPICAL HYGIENIC CARE; Start 12/21/16 at 18:00; Stop 12/25/16 at 10:04; Status DC Morphine Sulfate (Oramorph Sr) 15 mg ONCE ONCE PO Last administered on 20:50; Start 12/21/16 at 20:30; Stop 12/21/16 at 20:31; Status DC Morphine Sulfate 2 mg 2 mg Q3H PRN IV PUSH BREAKTHROUGH PAIN Last administered on 12/25/16 07:04; Start 12/22/16 at 09:15; Stop 12/25/16 at 09:17; Status DC Sodium Chloride (NS 250 ml Inj) 250 ml @ 15 mls/hr ONCE ONCE IV Last administered on 12/23/16 17:12; Start 12/23/16 at 07:00; Stop 12/23/16 at 23:39 ; Status DC Acetaminophen (Tylenol) 650 mg Q4H PRN PO SEE LABEL COMMENTS; Start 12/23/16 at 07:00; Stop 12/23/16 at 11:01; Status DC Diphenhydramine HCl (Benadryl) 25 mg Q4H PRN PO SEE LABEL COMMENTS; Start 12/23 at 07:00; Stop 12/23/16 at 11:01; Status DC Furosemide (Lasix Inj) 20 mg UNSCH X1 PRN IV SEE LABEL COMMENTS; Start at 07:00; Stop 12/23/16 at 14:00; Status DC Nitrofurantoin Macrocrystals (Macrobid) 100 mg BIDPC PO Last administered on 17:39; Start 12/24/16 at 09:00; Stop 12/30/16 at 23:00; Status DC Morphine Sulfate (Oramorph Sr) 15 mg Q12HR PO Last administered on 12/25/16 08 :59; Start 12/24/16 at 21:00; Stop 12/25/16 at 09:17; Status DC Morphine Sulfate (Msir) 15 mg Q6H PRN PO BREAKTHROUGH PAIN Last administered on 12/31/16 13:02; Start 12/24/16 at 13:30; Stop 12/31/16 at 16:03; Status DC Morphine Sulfate (Morphine Inj) 2 mg ONCE ONCE IV PUSH Last administered on 13:30; Start 12/24/16 at 13:30; Stop 12/24/16 at 13:43; Status DC Morphine Sulfate (Oramorph Sr) 30 mg Q12HR PO Last administered on 12/29/16 10 :43; Start 12/25/16 at 21:00; Stop 12/29/16 at 13:02; Status DC Morphine Sulfate (Oramorph Sr) 15 mg ONCE ONCE PO Last administered on 09:58; Start 12/25/16 at 09:30; Stop 12/25/16 at 09:41; Status DC Ondansetron HCl (Zofran Odt) 4 mg Q6H PRN PO NAUSEA OR VOMITING Last administered on 01/02/17 22:38; Start 12/25/16 at 11:00 Nystatin (Mycostatin Oint) 1 applic BID TOPICAL ; Start 12/25/16 at 16:00; Status Cancel Morphine Sulfate (Morphine Inj) 2 mg ONCE ONCE IV PUSH Last administered on 14:53; Start 12/25/16 at 14:45; Stop 12/25/16 at 14:46; Status DC Nystatin (Mycostatin Oint) 1 applic Q12HR TOPICAL Last administered on 09:29; Start 12/25/16 at 16:00 Insulin Human Isoph/Insulin Regular (NovoLIN 70/30 INJ) 15 units DAILY@1700 SQ ; Start 12/26/16 at 17:00; Stop 12/26/16 at 17:00; Status DC Insulin Human Isoph/Insulin Regular (NovoLIN 70/30 INJ) 18 units DAILY@08 SQ ; Start 12/27/16 at 08:00; Stop 12/27/16 at 08:00; Status DC Oxycodone/ Acetaminophen (Percocet 5-325 Mg) 1 tab Q6HR PRN PO PAIN SCALE 3 TO 10 Last administered on 12/31/16 05:30; Start 12/26/16 at 12:00; Stop at 16:03; Status DC Insulin Human Isoph/Insulin Regular (NovoLIN 70/30 INJ) 15 units DAILY@1700 SQ Last administered on 12/28/16 17:16; Start 12/26/16 at 17:00; Stop 12/29/16 at 13:02; Status DC Insulin Human Isoph/Insulin Regular (NovoLIN 70/30 INJ) 18 units DAILY@08 SQ Last administered on 12/29/16 08:41; Start 12/27/16 at 08:00; Stop 12/29/16 at 13:02; Status DC Metoprolol Tartrate (Lopressor) 12.5 mg BID PO Last administered on 12/30/16 08:32; Start 12/29/16 at 21:00; Stop 12/30/16 at 09:50; Status DC Morphine Sulfate (Oramorph Sr) 15 mg Q12HR PO Last administered on 12/31/16 07 :58; Start 12/29/16 at 21:00; Stop 12/31/16 at 13:01; Status DC Metformin HCl (Glucophage) 500 mg BIDPC PO Last administered on 01/01/17 08:57 ; Start 12/29/16 at 13:00; Stop 01/03/17 at 08:39; Status DC Losartan Potassium (Cozaar) 12.5 mg DAILY PO ; Start 12/30/16 at 09:00; Stop at 09:50; Status DC Temazepam (Restoril) 7.5 mg HS PRN PO Insomnia Last administered on 01/03/17 22 :02; Start 12/29/16 at 14:00 Carvedilol (Coreg) 3.125 mg Q12HR PO Last administered on 01/04/17 09:28; Start 12/30/16 at 21:00 Doxycycline Hyclate (Vibramycin) 100 mg BID PO Last administered on 01/01/17 08:56; Start 12/31/16 at 09:00; Stop 01/01/17 at 11:52; Status DC Oxycodone/ Acetaminophen (Percocet 5-325 Mg) 1 tab Q4H PRN PO PAIN SCALE 6 TO 10 Last administered on 01/04/17 13:08; Start 12/31/16 at 16:02 Gabapentin (Neurontin) 300 mg Q24H PO Last administered on 01/04/17 06:05; Start 01/02/17 at 06:00 Insulin Aspart (NovoLOG SUPPLEMENTAL SCALE) 1 ACHS SLIDING SCALE SQ ; Start at 16:00 Calcium Gluconate 1 gm 1 gm ONCE ONCE IV ; Start 01/01/17 at 11:45; Stop at 11:46; Status UNV Levofloxacin/ Dextrose 100 ml @ 100 mls/hr ONCE ONCE IV Last administered on 01/01/17 13:35; Start 01/01/17 at 12:15; Stop 01/01/17 at 13:14; Status DC Clindamycin Phosphate/Sodium Chloride (Cleocin Inj/NS Inj) 102 ml @ 104 mls/hr Q8H IV Last administered on 01/01/17 13:38; Start 01/01/17 at 14:00; Stop at 18:12; Status DC Sodium Polystyrene Sulfonate 30 gm 30 gm ONCE ONCE PO Last administered on 11:45; Start 01/01/17 at 11:45; Stop 01/01/17 at 12:15; Status DC Levofloxacin/ Dextrose 50 ml @ 50 mls/hr Q48H IV ; Start 01/03/17 at 12:00; Stop 01/03/17 at 12:00; Status DC Sodium Chloride 1,000 ml @ 50 mls/hr Q20H IV Last administered on 01/03/17 04: 36; Start 01/01/17 at 12:30; Stop 01/03/17 at 07:51; Status DC Calcium Gluconate/ Sodium Chloride (Calcium Gluconate Inj/NS Inj) 110 ml @ 110 mls/hr ONCE ONCE IV Last administered on 01/01/17 13:35; Start 01/01/17 at 14 :00; Stop 01/01/17 at 14:59; Status DC Heparin Sodium (Porcine) 5000 units 5,000 units Q8HR SQ Last administered on 13:07; Start 01/01/17 at 14:00 Ceftaroline Fosamil 400 mg/ Sodium Chloride 100 ml @ 100 mls/hr Q12H IV ; Start 01/01/17 at 20:00; Stop 01/01/17 at 20:21; Status DC Ciprofloxacin/ Dextrose (Cipro 400 Mg Premix) 200 ml @ 200 mls/hr Q24H IV Last administered on 01/02/17 15:52; Start 01/01/17 at 18:00; Stop 01/02/17 at 22 :31; Status DC Fluconazole (Diflucan) 100 mg DAILY PO Last administered on 01/04/17 09:28; Start 01/02/17 at 09:00 Lactobacillus Acidophilus 1 tab 1 tab TID PO Last administered on 01/04/17 12: 11; Start 01/02/17 at 09:00 Ceftaroline Fosamil 400 mg/ Sodium Chloride 100 ml @ 100 mls/hr Q12H IV Last administered on 01/03/17 09:32; Start 01/02/17 at 09:00; Stop 01/03/17 at 09:55; Status DC Ceftaroline Fosamil/Sodium Chloride (Teflaro Inj/NS Inj) 100 ml @ 100 mls/hr ONCE ONCE IV Last administered on 01/01/17 21:46; Start 01/01/17 at 21:00; Stop 01/01/17 at 21:59; Status DC Albuterol Sulfate (Proair Hfa Inh) 2 puff Q12HR PRN INH SOB/WHEEZING; Start 01/02/17 at 11:00 Metformin HCl (Glucophage) 500 mg BIDPC PO Last administered on 01/04/17 09:28 ; Start 01/03/17 at 18:00; Status Hold Doxycycline Hyclate (Vibramycin) 100 mg BID PO Last administered on 6/3/17at 09 :29; Start 01/03/17 at 21:00 Past, Family & Social History Past Medical History PFSH Reviewed: Yes Endocrine: REPORTS HX OF: Diabetes mellitus Cardiovascular: REPORTS HX OF: Coronary artery disease, Peripheral vascular dz Genitourinary: REPORTS HX OF: Kidney disease Cancer/Hematology: REPORTS HX OF: Breast cancer Past Surgical History Cardiovascular: REPORTS HX OF: CABG surgery Musculoskeletal: REPORTS HX OF: Other musculoskeletal srg Review of Systems Constitutional: COMPLAINS OF: Fatigue Musculoskeletal: COMPLAINS OF: Deformaties Wound Assessment Vascular Assessment Temperature of Left Extremity: Warm Temperature of Right Extremity: Warm Wound Information - Wound One Wound Location: right posterior stump Wound Type: Other (infectious) Classification: Bone/Tendon Present Wound Length: 2 cm Wound Width: 2.5 cm Wound Depth: 2 cm Exudate: Moderate Exudate Type: Serosanguineous Debridement: No Fibrin Amount: Mild Granulation Tissue Color: Pale / Noriega Granulation Tissue Texture: Spongy Exposed: Bone, Muscle, Tendon Eschar: No Odor: No Periwound Appearance: FINDINGS: Normal Dressings: Maxorb Extra AG Lab and Radiology Results Laboratory Laboratory Tests Test 01/03/17 05:03 White Blood Count 8.7 TH/MM3 Red Blood Count 3.50 MIL/MM3 Hemoglobin 9.2 GM/DL Hematocrit 29.6 % Mean Corpuscular Volume 84.6 FL Mean Corpuscular Hemoglobin 26.2 PG Mean Corpuscular Hemoglobin 31.0 % Concent Red Cell Distribution Width 17.4 % Platelet Count 312 TH/MM3 Mean Platelet Volume 7.2 FL Neutrophils (%) (Auto) 62.6 % Lymphocytes (%) (Auto) 19.9 % Monocytes (%) (Auto) 12.5 % Eosinophils (%) (Auto) 4.5 % Basophils (%) (Auto) 0.5 % Neutrophils # (Auto) 5.5 TH/MM3 Lymphocytes # (Auto) 1.7 TH/MM3 Monocytes # (Auto) 1.1 TH/MM3 Eosinophils # (Auto) 0.4 TH/MM3 Basophils # (Auto) 0.0 TH/MM3 CBC Comment DIFF FINAL Differential Comment Laboratory Tests Test 01/03/17 05:03 Sodium Level 146 MEQ/L Potassium Level 3.6 MEQ/L Chloride Level 110 MEQ/L Carbon Dioxide Level 29.5 MEQ/L Anion Gap 7 MEQ/L Blood Urea Nitrogen 18 MG/DL Creatinine 1.00 MG/DL Estimat Glomerular Filtration 57 ML/MIN Rate Random Glucose 91 MG/DL Calcium Level 7.5 MG/DL Total Creatine Kinase 640 U/L Creatine Kinase MB 7.6 NG/ML Creatine Kinase MB % 1.2 % Microbiology Date/Time Procedure Status Source Growth 01/02/17 15:00 Urine Culture - Final Complete Urine Catheterized Urine Rosita Albicans Radiology Last Impressions Knee X-Ray 01/03/17 1407 Signed Impressions: Service Date/Time: Tuesday, January 03, 2017 14:39 - CONCLUSION: 1 cm osteochondral abnormality of the central medial femoral condyle. Mild medial compartment narrowing. Richar Rios MD Ankle X-Ray 01/03/17 1407 Signed Impressions: Service Date/Time: Tuesday, January 03, 2017 14:39 - CONCLUSION: No significant interval change. Distal fibula shaft fracture again identified with some bone callus. No new fracture identified. Richar Rios MD Renal Ultrasound 12/14/16 0000 Signed Impressions: Service Date/Time: Wednesday, December 14, 2016 16:15 - CONCLUSION: Moderate bilateral hydronephrosis and significantly distended urinary bladder with debris. The findings raise the possibility of bladder outlet obstruction. Clinical correlation is recommended. Gage Lubin MD Assessment/Plan Problem List: (1) Amputation of right lower extremity below knee Status: Acute (2) Amputation stump infection Status: Acute Additional Plans & Procedures Ordered a wound culture. Packed wound with Maxorb extra AG. Consult Dr. [place] for possible revision of amputation. I will be out of town this week. Please reconsult podiatry if needed. Jean De Leon DPM Jan 04, 2017 13:57
[2017-01-04 20:00] VITALS: BP 151/71; PULSE 79; RESP 19; TEMP 98; O2SAT 100
[2017-01-04] MEDS: TEMAZEPAM 7.5 MG CAP PO PRN (21:10)
[2017-01-04] MEDS: MONTELUKAST SODIUM 10 MG TAB PO SCH (21:11)
[2017-01-04] MEDS: ATORVASTATIN 40 MG TAB PO SCH (21:11)
[2017-01-05] MEDS: oxyCODONE/ACETAMINOPHEN 5 MG/325 MG TAB PO PRN ×5 (01:53→21:16)
[2017-01-05] MEDS: GABAPENTIN 300 MG CAP PO SCH (05:37)
[2017-01-05] MEDS: HEPARIN SODIUM - SQ 10,000 UNITS/ML VIAL SQ SCH ×3 (05:37→21:18)
[2017-01-05] MEDS: INSULIN ASPART SUPPLEMENTAL SCALE SQ SCH ×4 (05:38→21:00)
[2017-01-05 08:00] VITALS: BP 147/82; PULSE 77; RESP 18; TEMP 97.8; O2SAT 98
[2017-01-05] MEDS: ASPIRIN 81 MG CHEW TAB PO SCH (08:53)
[2017-01-05] MEDS: LACTOBACILLUS ACIDOPHILUS TAB PO SCH ×3 (08:53→16:54)
[2017-01-05] MEDS: DOXYCYCLINE HYCLATE 100 MG CAP PO SCH ×2 (08:54→21:17)
[2017-01-05] MEDS: CARVEDILOL 3.125 MG TAB PO SCH ×2 (08:54→21:17)
[2017-01-05] MEDS: FLUCONAZOLE 100 MG TAB PO SCH (08:54)
[2017-01-05] MEDS: DULoxetine HCl DR 60 MG CAP PO SCH (08:54)
[2017-01-05] MEDS: AMIODARONE 200 MG TAB PO SCH (08:54)
[2017-01-05] MEDS: metFORMIN HCL 500 MG TAB PO SCH ×2 (08:54→16:54)
[2017-01-05] MEDS: COLLAGENASE OINT 30 GM TUBE TOPICAL SCH (08:55)
[2017-01-05] MEDS: NYSTATIN 100,000 U/GM OINT 15 GM TUBE TOPICAL SCH ×2 (08:55→21:21)
[2017-01-05 09:28] LABS: AUTOMATED NEUTROPHIL # 5.2 TH/MM3 (1.8-7.7); BASOPHIL # 0.1 TH/MM3 (0-0.2); EOSINOPHIL # 0.4 TH/MM3 (0-0.4); EOSINOPHIL % 4.5 % (0.0-4.0); HEMATOCRIT 29.6 % (35.0-46.0); HEMO FLAGS DIFF FINAL; LYMPH % 21.6 % (9.0-44.0); LYMPHOCYTE # 1.8 TH/MM3 (1.0-4.8); MEAN CELL VOLUME 84.8 FL (80.0-100.0); MEAN CORPUSCULAR HEMOGLOBIN 26.8 PG (27.0-34.0); MEAN CORPUSCULAR HGB CONC 31.6 % (32.0-36.0); MONO % 7.7 % (0.0-8.0); NEUT % 65.2 % (16.0-70.0); PLATELET COUNT 299 TH/MM3 (150-450); RED CELL DISTRIBUTION WIDTH 17.6 % (11.6-17.2); WHITE BLOOD COUNT 8.1 TH/MM3 (4.0-11.0)
[2017-01-05 09:56] LABS: POTASSIUM 3.7 MEQ/L (3.5-5.1)
[2017-01-05 09:59] LABS: BICARBONATE 27.5 MEQ/L (21.0-32.0)
--- NOTE | 2017-01-05 10:24 | HHI.PR ---
Subjective Remarks Follow up for UTI, right BKA stump wound, left foot drop. Patient denies any fevers or chills. She states she has been using nystatin on genital region ( for candidal infection); denies pruritus or vaginal discharge. Nurse states the area is actually improved from prior. Objective Vitals Vital Signs Date Time Temp Pulse Resp B/P Pulse Ox O2 Delivery O2 Flow Rate FiO2 01/04/17 20:00 98.0 79 19 151/71 100 01/04/17 18:36 18 I/O 01/04/17 01/04/17 01/04/17 01/05/17 01/05/17 01/05/17 07:00 15:00 23:00 07:00 15:00 23:00 Intake Total 480 ml 900 ml 960 ml 240 ml Output Total 100 ml Balance 480 ml 800 ml 960 ml 240 ml Intake Oral 480 ml 900 ml 960 ml 240 ml Output Urine Total 100 ml # Voids 4 7 5 # Bowel Movements 0 Result Diagram: 01/05/1790501/05/17 0906 Objective Remarks GENERAL: Well-developed patient in no apparent distress. SKIN: Warm and dry. Dressing to R BKA stump. Dressings to left foot. CARDIOVASCULAR: Regular rate and rhythm. RESPIRATORY: No accessory muscle use. Clear to auscultation. Breath sounds equal bilaterally. GASTROINTESTINAL: Abdomen soft, non-tender, nondistended. MUSCULOSKELETAL: Right BKA stump. 2+ left DP and TP pulses. GENITOURINARY: Examined in the presence of CHECK OUT CASHIER Manda. There is erythema to the labia with bleeding excoriations including one to L medial thigh. BACK: No CVA tenderness bilaterally. NEUROLOGICAL: Awake and alert. Gross sensation absent over dorsal and plantar aspect of entire left foot. Left foot drop noted. Unable to move L foot. Normal speech. PSYCHIATRIC: Appropriate mood and affect. Urinary Catheter: No Date of Insertion: January 01, 2017 Date of Removal: Jan 03, 2017 Vascular Central Line Catheter: No A/P Assessment and Plan 61 years old female admitted with weakness, unable to care for herself at home. Acute kidney injury: Resolved. Recurrent. BUN/Cr 56/2.7-->11/0.80. Likely secondary to urinary retention, UTI, Doxycycline, and possibly dehydration. -Avendano catheter placed 01/01 with good urine output. -Doxycycline was initially discontinued. -Avoid nephrotoxins -IV fluids discontinued. Hyperkalemia: 5.4-->3.7. Resolved. Attributed to ALFREDO. -S/p Kayexalate 30 gm po x 1 and IV calcium gluconate 1. -Telemetry discontinued. -Monitor BMP Rhabdomyolysis: Improved. CPK 2315-->196. Attributed to possible fall or could be related to BKA wound. Sepsis UTI: Acute. Improved. WBC 16.5-->8.1. -12/29 urine culture growing MRSA and Pseudomonas. -01/01: Clindamycin and Levaquin were started (only received one dose of Clindamycin, never got Levaquin), but ID was consulted and switched to Teflaro and Cipro. -01/02: Pseudomonas is resistant to all antibiotics tested. I contacted Dr. Garcia , ID, who advises repeating UA/culture. -01/03: Per ID Teflaro and Cipro stopped. Patient restarted on Doxycycline 100 mg po bid (renal failure resolved). ID states if repeat UA is again with resistant Pseudomonas can consider Zerbaxa. Preliminary urine culture 01/02 with yeast. -01/04: Final urine culture 01/02 with lilibeth albicans. Patient already on Fluconazole 100 mg po daily; has received [address] Garcia, ID, who states patient needs total of 5 days treatment, last dose 01/06. Diarrhea: Resolved. Could be attributed to Clindamycin. -C.diff. negative Metabolic and toxic encephalopathy: Resolved. Could be attributed to renal failure and UTI, under treatment. Patient nonfocal. Awake and fully oriented. Morphine was discontinued. Neuro checks. 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 De Leon has evaluated the patient today. Wound culture ordered. Advises packing R leg stump wound with Maxorb extra AG, cover with 4 x 4's and Roxy. He has placed consult for Dr. Wakefield for evaluation of revision of BKA to AKA. -Patient was on po Doxy for UTI which is no longer necessary but will keep on board to cover potential MRSA in wound. Dr. Garcia, ID informed. Will await final wound culture. -Patient refuses MRI RLE due to claustrophobia. RN informed patient we could give her Ativan prior to test, but she still refused. -01/05: WBC count normal. Wound culture pending, but gram stain with rare WBCs and rare gram negative rods. Left drop foot: Acute. May have had peroneal nerve injury from supposed fall the other night; also has previous L distal fibula fracture; patient currently in fracture boot. -01/03: L knee and foot x-rays without new fracture. -01/04: Podiatry, Dr. Snider has evaluated patient. States deep peroneal nerve compression could be from sitting/lying position/long hospitalization, or lumbar radiculopathy. Recommendations as follows: Continue wearing boot to keep foot/lower leg at 90 degrees and stabilized to prevent falls. Consider AFO if symptoms continue long-term. Consider neuro consult for EMG/Nerve conduction studies if symptoms persist -Patient refuses MRI L spine. -01/05: Patient agrees to do CT. Discussed with Dr. Potter. Will hold off at this time as she may require further imaging of the R leg and would like to do imaging at same time if possible in regards to claustrophobia and use of contrast. Vulvar candidiasis: Continue po fluconazole and topical nystatin. Last dose of fluconazole tomorrow for candidal UTI. If external infection fails to improve will switch nystatin to topical miconazole. Diabetes type 2 with peripheral neuropathy, long-term use insulin: Stable Hemoglobin A1c 5.6 on 12/25. Human insulin 70/30 discontinued. Metformin restarted as ALFREDO has resolved. Continue Accu-Cheks with sliding scale insulin. BGLs well controlled; has not required SSI in days. Patient will not follow diabetic diet, despite extensive counseling on diabetic management. Acute blood loss anemia: Improved. Status post transfusion 2 units packed red blood cells 12/23 01/05: Hemoglobin 9.4. Chronic systolic/diastolic congestive heart failure/HTN/CAD: Recent echocardiogram 11/13/16 indicates ejection fraction 25-30 percent Continue Coreg and amiodarone Losartan was previously discontinued and hydralazine held due to hypotension. 01/05: Systolic BP elevated between 147-151 persistently since night of 01/03; could be due to pain, but will start Lisinopril 2.5 mg po daily which will be beneficial since patient has CHF and is a diabetic. Monitor and adjust medications as needed. PAD, Hyperlipidemia, Hx of Breast Cancer, SLE, Asthma: Chronic and stable Follow clinically DVT prophylaxis Heparin, SCDs Patient management discussed with Dr. Potter, attending. Elsy Dubois Jan 05, 2017 10:24
[2017-01-05 10:25] LABS: CKMB 5.8 NG/ML (0.5-3.6)
[2017-01-05] MEDS: LISINOPRIL 5 MG TAB PO SCH (11:23)
--- NOTE | 2017-01-05 14:01 | PD.CAR.PN ---
CVT Progress Note Subjective/Hospital Course: Patient known to me from previous encounters Referral received Full consult to follow Noel Cooper Objective: Vital Signs Date Time Temp Pulse Resp B/P Pulse Ox O2 Delivery O2 Flow Rate FiO2 01/05/17 08:00 97.8 77 18 147/82 98 01/04/17 20:00 98.0 79 19 151/71 100 01/04/17 18:36 18 Labs: Laboratory Tests Test 01/05/17 09:06 White Blood Count 8.1 TH/MM3 (4.0-11.0) Red Blood Count 3.50 MIL/MM3 (4.00-5.30) Hemoglobin 9.4 GM/DL (11.6-15.3) Hematocrit 29.6 % (35.0-46.0) Mean Corpuscular Volume 84.8 FL (80.0-100.0) Mean Corpuscular Hemoglobin 26.8 PG (27.0-34.0) Mean Corpuscular Hemoglobin 31.6 % Concent (32.0-36.0) Red Cell Distribution Width 17.6 % (11.6-17.2) Platelet Count 299 TH/MM3 (150-450) Mean Platelet Volume 6.9 FL (7.0-11.0) Neutrophils (%) (Auto) 65.2 % (16.0-70.0) Lymphocytes (%) (Auto) 21.6 % (9.0-44.0) Monocytes (%) (Auto) 7.7 % (0.0-8.0) Eosinophils (%) (Auto) 4.5 % (0.0-4.0) Basophils (%) (Auto) 1.0 % (0.0-2.0) Neutrophils # (Auto) 5.2 TH/MM3 (1.8-7.7) Lymphocytes # (Auto) 1.8 TH/MM3 (1.0-4.8) Monocytes # (Auto) 0.6 TH/MM3 (0-0.9) Eosinophils # (Auto) 0.4 TH/MM3 (0-0.4) Basophils # (Auto) 0.1 TH/MM3 (0-0.2) CBC Comment DIFF FINAL Differential Comment Sodium Level 144 MEQ/L (136-145) Potassium Level 3.7 MEQ/L (3.5-5.1) Chloride Level 108 MEQ/L (98-107) Carbon Dioxide Level 27.5 MEQ/L (21.0-32.0) Anion Gap 9 MEQ/L (5-15) Blood Urea Nitrogen 11 MG/DL (7-18) Creatinine 0.80 MG/DL (0.50-1.00) Estimat Glomerular Filtration 73 ML/MIN (>89) Rate Random Glucose 105 MG/DL (74-106) Calcium Level 7.6 MG/DL (8.5-10.1) Total Creatine Kinase 196 U/L (26-192) Creatine Kinase MB 5.8 NG/ML (0.5-3.6) Creatine Kinase MB % 3.0 % (0.0-4.0) Result Diagram: 01/05/17 0906 01/05/17 0906 Chantale Wakefield MD Jan 05, 2017 14:01
[2017-01-05 20:00] VITALS: BP 136/76; PULSE 83; RESP 20; TEMP 97.8; O2SAT 98
[2017-01-05] MEDS: MONTELUKAST SODIUM 10 MG TAB PO SCH (21:17)
[2017-01-05] MEDS: ATORVASTATIN 40 MG TAB PO SCH (21:17)
[2017-01-05] MEDS: TEMAZEPAM 7.5 MG CAP PO PRN (21:17)
[2017-01-06] MEDS: oxyCODONE/ACETAMINOPHEN 5 MG/325 MG TAB PO PRN ×5 (01:21→23:43)
[2017-01-06] MEDS: INSULIN ASPART SUPPLEMENTAL SCALE SQ SCH ×4 (06:34→20:00)
[2017-01-06] MEDS: HEPARIN SODIUM - SQ 10,000 UNITS/ML VIAL SQ SCH ×3 (06:34→21:37)
[2017-01-06] MEDS: GABAPENTIN 300 MG CAP PO SCH (06:35)
[2017-01-06] MEDS: LISINOPRIL 5 MG TAB PO SCH (08:23)
[2017-01-06] MEDS: DOXYCYCLINE HYCLATE 100 MG CAP PO SCH (08:24)
[2017-01-06] MEDS: ASPIRIN 81 MG CHEW TAB PO SCH (08:24)
[2017-01-06] MEDS: LACTOBACILLUS ACIDOPHILUS TAB PO SCH ×3 (08:24→17:40)
[2017-01-06] MEDS: CARVEDILOL 3.125 MG TAB PO SCH ×2 (08:24→20:00)
[2017-01-06] MEDS: metFORMIN HCL 500 MG TAB PO SCH ×2 (08:24→17:40)
[2017-01-06] MEDS: FLUCONAZOLE 100 MG TAB PO SCH (08:24)
[2017-01-06] MEDS: DULoxetine HCl DR 60 MG CAP PO SCH (08:24)
[2017-01-06] MEDS: AMIODARONE 200 MG TAB PO SCH (08:24)
[2017-01-06] MEDS: COLLAGENASE OINT 30 GM TUBE TOPICAL SCH (08:25)
[2017-01-06] MEDS: NYSTATIN 100,000 U/GM OINT 15 GM TUBE TOPICAL SCH ×2 (08:25→20:03)
[2017-01-06 08:52] VITALS: BP 153/78; PULSE 81; RESP 18; TEMP 98.2; O2SAT 99
--- NOTE | 2017-01-06 10:50 | HHI.PR ---
Subjective Remarks Follow up for right BKA stump wound, left foot drop. Patient denies any fevers or chills, shortness of breath, vomiting, or diarrhea. Objective Vitals Vital Signs Date Time Temp Pulse Resp B/P Pulse Ox O2 Delivery O2 Flow Rate FiO2 01/06/17 08:52 98.2 81 18 153/78 99 01/05/17 20:00 97.8 83 20 136/76 98 I/O 01/05/17 01/05/17 01/05/17 01/06/17 01/06/17 01/06/17 07:00 15:00 23:00 07:00 15:00 23:00 Intake Total 240 ml 600 ml 240 ml 100 ml Balance 240 ml 600 ml 240 ml 100 ml Intake Oral 240 ml 600 ml 240 ml 100 ml # Voids 5 3 6 4 Result Diagram: 01/05/1790501/05/17905 Objective Remarks GENERAL: Well-developed patient in no apparent distress. SKIN: Warm and dry. Dressing to R BKA stump. Dressings to left foot. CARDIOVASCULAR: Regular rate and rhythm. RESPIRATORY: No accessory muscle use. Clear to auscultation. Breath sounds equal bilaterally. GASTROINTESTINAL: Normoactive bowel sounds. Abdomen soft, non-tender, nondistended. MUSCULOSKELETAL: Right BKA stump. No LLE edema. 2+ left DP and TP pulses. NEUROLOGICAL: Awake and alert. Sensation grossly intact over B/L thighs. 5/5 quadriceps strength bilaterally. Gross sensation absent over dorsal and plantar aspect of left foot. Left foot drop noted. Unable to move L foot. Normal speech. PSYCHIATRIC: Appropriate mood and affect. Urinary Catheter: No Date of Insertion: January 01, 2017 Date of Removal: Jan 03, 2017 Vascular Central Line Catheter: No A/P Assessment and Plan 61 years old female admitted with weakness, unable to care for herself at home. Acute kidney injury: Resolved. Recurrent. BUN/Cr 56/2.7-->11/0.80. Likely secondary to urinary retention, UTI, Doxycycline, and possibly dehydration. -Avendano catheter placed 01/01 with good urine output. -Doxycycline was initially discontinued. -Avoid nephrotoxins -IV fluids discontinued. Hyperkalemia: 5.4-->3.7. Resolved. Attributed to ALFREDO. -S/p Kayexalate 30 gm po x 1 and IV calcium gluconate 1. -Telemetry discontinued. -Monitor BMP Rhabdomyolysis: Improved. CPK 2315-->196. Attributed to fall or could be related to BKA wound. Sepsis UTI: Acute. Improved. WBC 16.5-->8.1. -12/29 urine culture growing MRSA and Pseudomonas. -01/01: Clindamycin and Levaquin were started (only received one dose of Clindamycin, never got Levaquin), but ID was consulted and switched to Teflaro and Cipro. -01/02: Pseudomonas is resistant to all antibiotics tested. I contacted Dr. Garcia , ID, who advises repeating UA/culture. -01/03: Per ID Teflaro and Cipro stopped. Patient restarted on Doxycycline 100 mg po bid (renal failure resolved). ID states if repeat UA is again with resistant Pseudomonas can consider Zerbaxa. Preliminary urine culture 01/02 with yeast. -01/04: Final urine culture 01/02 with lilibeth albicans. Patient already on Fluconazole 100 mg po daily; has received [address] Garcia, JUAN ALBERTO, who states patient needs total of 5 days treatment. -01/06: Received 5 days of Fluconazole. Discontinue. Diarrhea: Resolved. Could be attributed to Clindamycin. -C.diff. negative Metabolic and toxic encephalopathy: Resolved. Could be attributed to renal failure and UTI, under treatment. Patient nonfocal. Awake and fully oriented. Morphine was discontinued. Neuro checks. 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 -Wound care physician Dr. De Leon has evaluated the patient today. Wound culture ordered. Advises packing R leg stump wound with Maxorb extra AG, cover with 4 x 4's and Roxy. He has placed consult for Dr. Wakefield for evaluation of revision of BKA to AKA. -Patient was on po Doxy for UTI which is no longer necessary but will keep on board to cover potential MRSA in wound. Dr. Garcia, ID informed. Will await final wound culture. -Patient refuses MRI RLE due to claustrophobia. RN informed patient we could give her Ativan prior to test, but she still refused. -01/06: Wound culture reviewed with multidrug resistant Pseudomonas Aeruginosa and MRSA. Patient currently on po Doxycycline. Remains afebrile. Dr. Garcia, ID, aware. Awaiting recommendations. -01/06: Dr. Wakefield has evaluated the patient, consultation appreciated. He recommended to patient AKA but patient declines at this time. He has given wound care orders. He is to debride wound in the next couple of days; will need wound vac. Left drop foot: Acute. May have had peroneal nerve injury from supposed fall the other night; also has previous L distal fibula fracture; patient currently in fracture boot. -01/03: L knee and foot x-rays without new fracture. -01/04: Podiatry, Dr. Snider has evaluated patient. States deep peroneal nerve compression could be from sitting/lying position/long hospitalization, or lumbar radiculopathy. Recommendations as follows: Continue wearing boot to keep foot/lower leg at 90 degrees and stabilized to prevent falls. Consider AFO if symptoms continue long-term. Consider neuro consult for EMG/Nerve conduction studies if symptoms persist -Patient refuses MRI L spine. -01/05: Patient agrees to do CT. Discussed with Dr. Potter. Will hold off at this time as she may require further imaging of the R leg and would like to do imaging at same time if possible in regards to claustrophobia and use of contrast. Vulvar candidiasis: S/p fluconazole. Continue nystatin ointment. If external infection fails to improve will need to switch to topical miconazole cream. Diabetes type 2 with peripheral neuropathy, long-term use insulin: Stable Hemoglobin A1c 5.6 on 12/25. Human insulin 70/30 discontinued. Continue Metformin Continue Accu-Cheks with sliding scale insulin. BGLs well controlled; has not required SSI in days. Patient will not follow diabetic diet, despite extensive counseling on diabetic management. Acute blood loss anemia: Improved. Status post transfusion 2 units packed red blood cells 12/23 01/05: Hemoglobin 9.4. Chronic systolic/diastolic congestive heart failure/HTN/CAD: Recent echocardiogram 11/13/16 indicates ejection fraction 25-30 percent Continue Coreg and amiodarone Losartan was previously discontinued and hydralazine held due to hypotension. 01/05: Systolic BP elevated between 147-151 persistently since night of 01/03; could be due to pain, but will start Lisinopril 2.5 mg po daily which will be beneficial since patient has CHF and is a diabetic. Monitor and adjust medications as needed. 01/06: SBP again elevated at 153 this morning. If BP continues to be elevated can increase Lisinopril. PAD, Hyperlipidemia, Hx of Breast Cancer, SLE, Asthma: Chronic and stable Follow clinically DVT prophylaxis Heparin, SCDs Patient management discussed with Dr. Potter, attending. Elsy Dubois Jan 06, 2017 10:50
--- NOTE | 2017-01-06 12:15 | MB ---
cc: CHANTALE EVANS MD DATE OF CONSULTATION: 01/05/[address] Evans. REASON FOR CONSULTATION Right BKA stump posterior wound. HISTORY OF PRESENT ILLNESS This 61-year-old female is known to me on previous admissions. She came in the beginning of November in septic shock with necrotic right leg, underwent below-knee amputation. The patient did well postoperatively and recovered. Unfortunately, the patient apparently fell on the night of the 31 of December, but this was never witnessed. The patient now has a wound of the posterior portion of the stump. PAST MEDICAL AND SURGICAL HISTORY On the chart. MEDICATION Medications are on the record. PHYSICAL EXAMINATION GENERAL: Reveals a 61-year-old female. HEENT: Normocephalic, no trauma to the head. Pupils are equally reactive. Extraocular muscles intact. The patient is oriented, alert. NECK: Bilateral carotid pulses, faint carotid bruit which was worked up. CHEST: Bilateral breath sounds. HEART: Regular rhythm. ABDOMEN: Soft. Active bowel sounds. EXTREMITIES: The patient has a right BKA. She has a good femoral pulse and dopplerable popliteal pulse. There is about 1 inch opening in the posterior portion of the stump which goes all the way down to the bone. This is clearly an impalement injury and occurred by some hard object entering the patient's stump. This is way away from the incision and in the middle of a clean soleus muscle posteriorly, so it is clearly a trauma that has occurred. There is some fibrinous material around it and some drainage. RECOMMENDATIONS This has occurred on the 31 of December allegedly from my looking at the notes. Patient states that she fell and impaled herself on the handlebar of the wheelchair on the 30 of December. At this point we will wash this out. I will give orders to clean it and in the next few days I will go ahead and debride this. The patient will need a wound vac. Unfortunately, due to multi culture infections including MRSA, MDR and Pseudomonas, there is a very high probability the patient will need above-knee amputation. [id number] I have suggested to the patient above-knee amputation at this time, however, she does not want it, so will try to do something less. Chantale Evans SJ/TLL /10:28 AM /12:00 PM [id number]
--- NOTE | 2017-01-06 15:13 | PD.CAR.PN ---
CVT Progress Note Subjective/Hospital Course: Patient known to me from previous encounters Referral received Full consult to deandre Cooper 01/06/17 Full consult has been dictated for details please refer to it. The stump has healed well however there is a penetrating wound and posterior aspect of the stump alf up the soleus muscle way away from any incisions. This is definitely NOT a pressure sore but clearly a penetrating injury. Patient states that she fell out of bed and impaled herself on the handlebar of her wheelchair in this is exactly how this looks like Wound is penetrating posteriorly and going close to the bone He has grown out MRSA and multidrug resistance organisms as well as Pseudomonas At this point we will continue the dressings and washings and allow it to clean itself out for a few days and then in a week or so I'll take the patient to the operating room at [facility] to debride the stump and place a wound VAC For that procedure patient does NOT need to be transferred to the main hospital Objective: Vital Signs Date Time Temp Pulse Resp B/P Pulse Ox O2 Delivery O2 Flow Rate FiO2 01/06/17 08:52 98.2 81 18 153/78 99 01/05/17 20:00 97.8 83 20 136/76 98 Result Diagram: 01/05/17 0906 01/05/17 0906 Chantale Wakefield MD Jan 06, 2017 15:13
--- NOTE | 2017-01-06 15:26 | HHI.IDPN ---
Subjective Subjective Remarks ID FU DR GARCIA No fevers Wound on stump the inferior aspect with +MDR PAE No more diarrhea Antibiotics TEFLARO- Day 5 Lines Peripheral Past Medical History Diabetes RT Leg BKA SLE Breast Cancer CAD (Dre,Rahel LAWSON) Remarks Infection with deep wound on rt stump. To go for debridement later this week Does not want AKA at this time Understands that it may become necessary (Vianey Garcia MD) Allergies: Coded Allergies: Bactrim (Verified Allergy, Severe, Shortness of Breath, 12/13/16) Iodine (Verified Allergy, Severe, THROAT SWELLS, 12/13/16) pt states does not have a allergy to Iodine 01/11/16 JF Penicillin (Verified Allergy, Severe, STOPPED BREATHING, 12/13/16) Shellfish (Verified Allergy, Severe, THROAT SWELLS, 12/13/16) *MDRO Multi-Drug Resistant Organism (Verified Adverse Reaction, Unknown, ) 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, wound - 01/04/17 MRSA (urine)-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 on 12/21/16 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 Objective . Vital Signs Date Time Temp Pulse Resp B/P Pulse Ox O2 Delivery O2 Flow Rate FiO2 01/06/17 08:52 98.2 81 18 153/78 99 01/05/17 20:00 97.8 83 20 136/76 98 01/05/17 01/05/17 01/06/17 14:59 22:59 06:59 Intake Total 600 ml 240 ml Balance 600 ml 240 ml Intake Oral 600 ml 240 ml # Voids 3 6 4 . Laboratory Tests Test 01/05/17 09:06 White Blood Count 8.1 TH/MM3 Red Blood Count 3.50 MIL/MM3 Hemoglobin 9.4 GM/DL Hematocrit 29.6 % Mean Corpuscular Volume 84.8 FL Mean Corpuscular Hemoglobin 26.8 PG Mean Corpuscular Hemoglobin 31.6 % Concent Red Cell Distribution Width 17.6 % Platelet Count 299 TH/MM3 Mean Platelet Volume 6.9 FL Neutrophils (%) (Auto) 65.2 % Lymphocytes (%) (Auto) 21.6 % Monocytes (%) (Auto) 7.7 % Eosinophils (%) (Auto) 4.5 % Basophils (%) (Auto) 1.0 % Neutrophils # (Auto) 5.2 TH/MM3 Lymphocytes # (Auto) 1.8 TH/MM3 Monocytes # (Auto) 0.6 TH/MM3 Eosinophils # (Auto) 0.4 TH/MM3 Basophils # (Auto) 0.1 TH/MM3 CBC Comment DIFF FINAL Differential Comment Laboratory Tests Test 01/05/17 09:06 Sodium Level 144 MEQ/L Potassium Level 3.7 MEQ/L Chloride Level 108 MEQ/L Carbon Dioxide Level 27.5 MEQ/L Anion Gap 9 MEQ/L Blood Urea Nitrogen 11 MG/DL Creatinine 0.80 MG/DL Estimat Glomerular Filtration 73 ML/MIN Rate Random Glucose 105 MG/DL Calcium Level 7.6 MG/DL Total Creatine Kinase 196 U/L Creatine Kinase MB 5.8 NG/ML Creatine Kinase MB % 3.0 % Microbiology Date/Time Procedure Status Source Growth 01/04/17 14:30 Gram Stain - Final Resulted Wound Leg 01/04/17 14:30 Wound Culture - Preliminary Resulted Pseudomonas Aeruginosa S. Aureus Mrsa Physical Exam AWAKE OX3 PERRL NS CHEST DECREASED THROUGHOUT CARDIAC RRR ABD SOFT ACTIVE EXT RIGHT STUMP with wound PURLENT DRAINAGE ROUND TUNNELS AT 6 OCLOCK / LLE NO EDEMA (Rahel Erickson [employer]OUND [employer]) Assessment & Plan Diagnosis: (1) CAD (coronary artery disease) (2) Diabetes mellitus (3) Methicillin resistant Staphylococcus aureus infection (4) Amputation of right lower extremity below knee Plan: NOW WITH A WOUND PAE V MDR ON TEFLARO WILL START AVACAYAZ ASK PHARMACY TO DOSE SEEN EXAM WITH DR GARCIA (5) UTI (urinary tract infection) Plan: PT WITH MDR PAE AND MRSA WBC NORMAL CLINICALLY STABLE ? 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 (Rahel Erickson [employer]) Diagnosis: (1) CAD (coronary artery disease) (2) Diabetes mellitus (3) Methicillin resistant Staphylococcus aureus infection (4) Amputation of right lower extremity below knee Plan: NOW WITH A WOUND PAE V MDR PT with MRSA and MDRO Pseudomonas Will Stop the Doxycycline Start IV Vancomycin with Zerbaxa Discussed with patient she may ultimately need a AKA (5) UTI (urinary tract infection) Plan: Lat Urine culture with some yeast No further treatment required (6) Diarrhea Plan: BETTER FLORASTOR (Vianey Garcia MD) Problem Qualifiers (1) Diabetes mellitus: (2) UTI (urinary tract infection): Rahel Erickson Jan 06, 2017 15:25 Vianey Garcia MD Jan 06, 2017 15:47
[2017-01-06 16:59] LABS: AUTOMATED NEUTROPHIL # 5.1 TH/MM3 (1.8-7.7); BASOPHIL # 0.1 TH/MM3 (0-0.2); EOSINOPHIL # 0.2 TH/MM3 (0-0.4); EOSINOPHIL % 2.4 % (0.0-4.0); HEMATOCRIT 28.3 % (35.0-46.0); HEMO FLAGS DIFF FINAL; LYMPH % 27.8 % (9.0-44.0); LYMPHOCYTE # 2.4 TH/MM3 (1.0-4.8); MEAN CELL VOLUME 84.6 FL (80.0-100.0); MEAN CORPUSCULAR HEMOGLOBIN 26.8 PG (27.0-34.0); MEAN CORPUSCULAR HGB CONC 31.7 % (32.0-36.0); NEUT % 58.8 % (16.0-70.0); PLATELET COUNT 323 TH/MM3 (150-450); RED BLOOD COUNT 3.35 MIL/MM3 (4.00-5.30); RED CELL DISTRIBUTION WIDTH 17.6 % (11.6-17.2); WHITE BLOOD COUNT 8.7 TH/MM3 (4.0-11.0)
[2017-01-06 17:07] LABS: POTASSIUM 3.8 MEQ/L (3.5-5.1)
[2017-01-06] MEDS: VANCOMYCIN INJ 1,000 MG in SODIUM CHLOR 0.9% 250 ML INJ 250 ML IV SCH (17:41)
[2017-01-06] MEDS: CEFTOLOZANE-TAZOBACTAM INJ 1,500 MG in SODIUM CHLORIDE 0.9% INJ 100 ML IV SCH (19:53)
[2017-01-06] MEDS: ATORVASTATIN 40 MG TAB PO SCH (19:59)
[2017-01-06 20:00] VITALS: BP 162/72; PULSE 91; RESP 20; TEMP 96.5; O2SAT 99
[2017-01-06] MEDS: MONTELUKAST SODIUM 10 MG TAB PO SCH (20:00)
[2017-01-06] MEDS: ONDANSETRON ODT 4 MG TAB PO PRN (21:41)
[2017-01-06] MEDS: TEMAZEPAM 7.5 MG CAP PO PRN (21:41)
[2017-01-07] MEDS: CEFTOLOZANE-TAZOBACTAM INJ 1,500 MG in SODIUM CHLORIDE 0.9% INJ 100 ML IV SCH ×3 (02:00→17:03)
[2017-01-07] MEDS: VANCOMYCIN INJ 1,000 MG in SODIUM CHLOR 0.9% 250 ML INJ 250 ML IV SCH ×2 (03:52→15:37)
[2017-01-07] MEDS: GABAPENTIN 300 MG CAP PO SCH (05:53)
[2017-01-07] MEDS: HEPARIN SODIUM - SQ 10,000 UNITS/ML VIAL SQ SCH ×3 (05:53→21:30)
[2017-01-07] MEDS: oxyCODONE/ACETAMINOPHEN 5 MG/325 MG TAB PO PRN ×4 (05:53→23:57)
[2017-01-07] MEDS: INSULIN ASPART SUPPLEMENTAL SCALE SQ SCH (06:23)
[2017-01-07 08:00] VITALS: BP 163/79; PULSE 76; RESP 19; TEMP 98.2; O2SAT 100
[2017-01-07] MEDS: NYSTATIN 100,000 U/GM OINT 15 GM TUBE TOPICAL SCH ×2 (09:00→20:35)
[2017-01-07] MEDS: LACTOBACILLUS ACIDOPHILUS TAB PO SCH ×3 (09:24→15:36)
[2017-01-07] MEDS: DULoxetine HCl DR 60 MG CAP PO SCH (09:24)
[2017-01-07] MEDS: CARVEDILOL 3.125 MG TAB PO SCH (09:24)
[2017-01-07] MEDS: AMIODARONE 200 MG TAB PO SCH (09:24)
[2017-01-07] MEDS: metFORMIN HCL 500 MG TAB PO SCH ×2 (09:24→15:35)
[2017-01-07] MEDS: LISINOPRIL 5 MG TAB PO SCH (09:24)
[2017-01-07] MEDS: ASPIRIN 81 MG CHEW TAB PO SCH (09:24)
[2017-01-07] MEDS: COLLAGENASE OINT 30 GM TUBE TOPICAL SCH (09:25)
--- NOTE | 2017-01-07 10:19 | HHI.PR ---
Subjective Remarks Patient seen and examined today for follow-up on leg wound, inability care for self. Patient was evaluated by that her surgeon who recommended [id number] amputation. Patient is deferring that at this time. Objective Vitals Vital Signs Date Time Temp Pulse Resp B/P Pulse Ox O2 Delivery O2 Flow Rate FiO2 01/07/17 08:00 98.2 76 19 163/79 100 01/06/17 20:00 96.5 91 20 162/72 99 I/O 01/06/17 01/06/17 01/06/17 01/07/17 01/07/17 01/07/17 07:00 15:00 23:00 07:00 15:00 23:00 Intake Total 240 ml 100 ml 860 ml 480 ml Output Total 300 ml 775 ml Balance 240 ml 100 ml 560 ml -295 ml Intake Oral 240 ml 100 ml 480 ml 480 ml IV Total 380 ml Output Urine Total 300 ml 775 ml Stool Total 0 ml # Voids 4 # Bowel Movements 1 0 Result Diagram: 01/06/17 1650 01/06/17 1650 Objective Remarks GENERAL: Well-developed, well-nourished, in no acute distress. alert and orientated HEENT: Head is normocephalic without any lesions or masses noted. Facial features are symmetric. Eyes: Extraocular muscles are intact. Conjunctivae were clear. NECK: Supple without any masses. Trachea midline no deviation. No JVD, CARDIAC: Regular rhythm, regular rate. S1/S2 are heard. No murmurs gallops or rubs. LUNGS: Clear to auscultation bilaterally. No wheeze, rhonchi or rales. No use of accessory muscles on inspiration or expiration. ABDOMEN: Soft, nontender. Nondistended. Bowel sounds heard in all 4 quadrants. No organomegaly or masses. Negative rebound, negative guarding EXTREMITIES: No edema, pulses are equal bilaterally. No cyanosis or clubbing. 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 Left lower extremity has fracture boot NEUROLOGY: Mood and affect appear appropriate. Cranial nerves II through XII grossly intact. 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 Dr. De Leon evaluated patient and recommending wound care Vascular surgery was consulted who recommended above--knee amputation, however patient is deferring Patient will likely need debridement and wound VAC placement per vascular surgery Wound culture showing Pseudomonas, MRSA Infectious disease consulted Antibiotics to include vancomycin, Teflaro Continue physical therapy Continue case management for discharge planning Pain control Continue gabapentin, Cymbalta Percocet 5 one tablet every 6 hours as needed for pain 610 Diabetes type 2 with peripheral neuropathy, long-term use insulin Continue metformin 500 twice a day Discontinue Accu-Cheks with sliding scale insulin Patient will not follow diabetic diet, despite extensive counseling on diabetic management. Sepsis with urinary tract infection, recurrent Patient stable at this time, no longer febrile, leukocytosis resolved Urinary culture with MRSA, Pseudomonas, Rosita Infectious disease consulted and recommending Teflaro, Cipro Acute blood loss anemia, resolved Hemoglobin stable Status post transfusion 2 units packed red blood cells 12/23 Acute kidney injury with hyperkalemia, improving Likely due to urinary retention Avoid nephrotoxins Rhabdomyolysis, resolved Could have been secondary to blood anemia vegetation versus fall Status post IV fluids Metabolic/toxic encephalopathy, resolved Multifactorial with urinary tract infection, sepsis, renal failure, pain medication Improved after discontinuation of morphine Chronic systolic/diastolic congestive heart failure Recent echocardiogram indicates ejection fraction 2530 percent Continue Coreg, lisinopril Left drop foot: Acute. May have had peroneal nerve injury from unwitnessed fall Patient deferring MRI study at this time for evaluation Podiatry consulted, Dr. Snider has evaluated patient. States deep peroneal nerve compression could be from sitting/lying position/long hospitalization, or lumbar radiculopathy. Recommendations as follows: Continue wearing boot to keep foot/lower leg at 90 degrees and stabilized to prevent falls. Consider AFO if symptoms continue long-term. Consider neuro consult for EMG/Nerve conduction studies if symptoms persist Hypertension, coronary disease increase to 6.25 mg twice daily Increase lisinopril 5 mg daily PAD, Hyperlipidemia, Hx of Breast Cancer,SLE,Asthma, chronic and stable No change to baseline treatments, Follow clinically DVT prophylaxis heparin and SCD Discharge Planning Complicated discharge. Case management managing discharge planning. Apparently patient has used a rehabilitation center benefits without co-pay. Patient does not have the funds for a co-pay. Patient will remain in hospital until she is able to function at home or until case management can arrange other discharge planning Baldemar Black Jan 07, 2017 10:19
--- NOTE | 2017-01-07 17:44 | HHI.IDPN ---
Note Infectious Disease Note ID COVERAGE: Notes reviewed. Patient seen and examined. Fell and dehisced surgical wound at r. BKA stump. No fevers Wound on stump the inferior aspect with +MDR PAE Antibiotics TEFLARO- Day 5. Vancomycin. Lines Peripheral Past Medical History Diabetes RT Leg BKA SLE Breast Cancer CAD Allergies: Coded Allergies: Bactrim (Verified Allergy, Severe, Shortness of Breath, 12/13/16) Iodine (Verified Allergy, Severe, THROAT SWELLS, 12/13/16) pt states does not have a allergy to Iodine 01/11/16 JF Penicillin (Verified Allergy, Severe, STOPPED BREATHING, 12/13/16) Shellfish (Verified Allergy, Severe, THROAT SWELLS, 12/13/16) *MDRO Multi-Drug Resistant Organism (Verified Adverse Reaction, Unknown, ) 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, wound - 01/04/17 MRSA (urine)-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 on 12/21/16 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 Objective Vital Signs Date Time Temp Pulse Resp B/P Pulse Ox O2 Delivery O2 Flow Rate FiO2 01/07/17 08:00 98.2 76 19 163/79 100 01/06/17 20:00 96.5 91 20 162/72 99 Laboratory Tests Test 01/06/17 16:50 White Blood Count 8.7 TH/MM3 Red Blood Count 3.35 MIL/MM3 Hemoglobin 9.0 GM/DL Hematocrit 28.3 % Mean Corpuscular Volume 84.6 FL Mean Corpuscular Hemoglobin 26.8 PG Mean Corpuscular Hemoglobin 31.7 % Concent Red Cell Distribution Width 17.6 % Platelet Count 323 TH/MM3 Mean Platelet Volume 6.6 FL Neutrophils (%) (Auto) 58.8 % Lymphocytes (%) (Auto) 27.8 % Monocytes (%) (Auto) 10.0 % Eosinophils (%) (Auto) 2.4 % Basophils (%) (Auto) 1.0 % Neutrophils # (Auto) 5.1 TH/MM3 Lymphocytes # (Auto) 2.4 TH/MM3 Monocytes # (Auto) 0.9 TH/MM3 Eosinophils # (Auto) 0.2 TH/MM3 Basophils # (Auto) 0.1 TH/MM3 CBC Comment DIFF FINAL Differential Comment Laboratory Tests Test 01/06/17 16:50 Sodium Level 143 MEQ/L Potassium Level 3.8 MEQ/L Chloride Level 108 MEQ/L Carbon Dioxide Level 27.0 MEQ/L Anion Gap 8 MEQ/L Blood Urea Nitrogen 13 MG/DL Creatinine 0.80 MG/DL Estimat Glomerular Filtration 73 ML/MIN Rate Random Glucose 85 MG/DL Calcium Level 7.8 MG/DL Microbiology Date/Time Procedure Status Source Growth 01/04/17 14:30 Gram Stain - Final Resulted Wound Leg 01/04/17 14:30 Wound Culture - Preliminary Resulted Pseudomonas Aeruginosa S. Aureus Mrsa GENERAL: Patient is in no acute distress. HEENT: EOMI, No icterus. NECK: Supple. LUNGS: Clear breath sounds. CARDIAC: Regular rate and rhythm ABDOMEN: Soft, non tender. EXTREMITIES: R stump posterior aspect has opening with deep tunnel. No erythema. Packed with gauze. SKIN: No rash. NEURO: Alert and oriented. Assessment & Plan Diagnosis: (1) CAD (coronary artery disease) (2) Diabetes mellitus (3) Methicillin resistant Staphylococcus aureus infection (4) Wound infection at dehisced amputation of right lower extremity below knee. MDR pseudomonas and MRSA. Continue Teflaro Continue Vancomycin. Patient is agreeable to AKA. I think this is her best option to treat this drug resistant infection. (5) UTI (urinary tract infection) Plan: PT WITH MDR PAE AND MRSA (6) Diarrhea Plan: [employer] Ike Briceno MD Jan 07, 2017 17:44
[2017-01-07 20:00] VITALS: BP 133/71; PULSE 85; RESP 16; TEMP 99; O2SAT 98
[2017-01-07] MEDS: CARVEDILOL 6.25 MG TAB PO SCH (20:33)
[2017-01-07] MEDS: MONTELUKAST SODIUM 10 MG TAB PO SCH (20:33)
[2017-01-07] MEDS: ATORVASTATIN 40 MG TAB PO SCH (20:33)
[2017-01-07] MEDS: TEMAZEPAM 7.5 MG CAP PO PRN (21:30)
[2017-01-08] MEDS: CEFTOLOZANE-TAZOBACTAM INJ 1,500 MG in SODIUM CHLORIDE 0.9% INJ 100 ML IV SCH ×3 (01:57→17:40)
[2017-01-08] MEDS: VANCOMYCIN INJ 1,000 MG in SODIUM CHLOR 0.9% 250 ML INJ 250 ML IV SCH ×2 (04:20→16:14)
[2017-01-08] MEDS: oxyCODONE/ACETAMINOPHEN 5 MG/325 MG TAB PO PRN ×3 (06:08→19:27)
[2017-01-08] MEDS: HEPARIN SODIUM - SQ 10,000 UNITS/ML VIAL SQ SCH ×3 (06:09→21:28)
[2017-01-08] MEDS: GABAPENTIN 300 MG CAP PO SCH (06:09)
[2017-01-08 08:40] VITALS: BP 166/82; PULSE 77; RESP 19; TEMP 97.7; O2SAT 99
[2017-01-08] MEDS: ASPIRIN 81 MG CHEW TAB PO SCH (09:35)
[2017-01-08] MEDS: AMIODARONE 200 MG TAB PO SCH (09:35)
[2017-01-08] MEDS: CARVEDILOL 6.25 MG TAB PO SCH ×2 (09:35→20:16)
[2017-01-08] MEDS: DULoxetine HCl DR 60 MG CAP PO SCH (09:36)
[2017-01-08] MEDS: LACTOBACILLUS ACIDOPHILUS TAB PO SCH ×3 (09:36→17:41)
[2017-01-08] MEDS: metFORMIN HCL 500 MG TAB PO SCH ×2 (09:36→17:41)
[2017-01-08] MEDS: LISINOPRIL 5 MG TAB PO SCH (09:36)
[2017-01-08] MEDS: NYSTATIN 100,000 U/GM OINT 15 GM TUBE TOPICAL SCH ×2 (09:37→20:17)
[2017-01-08] MEDS: COLLAGENASE OINT 30 GM TUBE TOPICAL SCH (09:39)
--- NOTE | 2017-01-08 11:33 | HHI.PR ---
Subjective Remarks Patient seen and examined today for follow-up on weakness, unable to care for self, right [id number] amputation. Patient spoke with infectious disease yesterday and now is in agreement to undergo [id number] amputation. Vascular surgery was notified Objective Vitals Vital Signs Date Time Temp Pulse Resp B/P Pulse Ox O2 Delivery O2 Flow Rate FiO2 01/08/17 08:40 97.7 77 19 166/82 99 01/08/17 00:57 16 01/07/17 20:00 99.0 85 16 133/71 98 I/O 01/07/17 01/07/17 01/07/17 01/08/17 01/08/17 01/08/17 07:00 15:00 23:00 07:00 15:00 23:00 Intake Total 480 ml 480 ml 480 ml Output Total 775 ml 400 ml 650 ml Balance -295 ml -400 ml 480 ml -170 ml Intake Oral 480 ml 480 ml 480 ml Output Urine Total 775 ml 650 ml Stool Total 0 ml 400 ml # Voids 1 2 # Bowel Movements 0 0 0 Result Diagram: 01/06/17 1650 01/06/17 1650 Objective Remarks GENERAL: Well-developed, well-nourished, in no acute distress. alert and orientated HEENT: Head is normocephalic without any lesions or masses noted. Facial features are symmetric. Eyes: Extraocular muscles are intact. Conjunctivae were clear. NECK: Supple without any masses. Trachea midline no deviation. No JVD, CARDIAC: Regular rhythm, regular rate. S1/S2 are heard. No murmurs gallops or rubs. LUNGS: Clear to auscultation bilaterally. No wheeze, rhonchi or rales. No use of accessory muscles on inspiration or expiration. ABDOMEN: Soft, nontender. Nondistended. Bowel sounds heard in all 4 quadrants. No organomegaly or masses. Negative rebound, negative guarding EXTREMITIES: No edema, pulses are equal bilaterally. No cyanosis or clubbing. 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 Left lower extremity has fracture boot NEUROLOGY: Mood and affect appear appropriate. Cranial nerves II through XII grossly intact. 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 Dr. De Leon evaluated patient and recommending wound care Vascular surgery was consulted who recommended above--knee amputation, patient now in agreement with surgery Vascular surgery was notified and plans on evaluating the patient again tomorrow. Wound culture showing Pseudomonas, MRSA Infectious disease consulted Antibiotics to include vancomycin, Teflaro Continue physical therapy Continue case management for discharge planning Pain control Continue gabapentin, Cymbalta Percocet 5 one tablet every 6 hours as needed for pain 610 Diabetes type 2 with peripheral neuropathy, long-term use insulin Continue metformin 500 twice a day Sepsis with urinary tract infection, recurrent Patient stable at this time, no longer febrile, leukocytosis resolved Urinary culture with MRSA, Pseudomonas, Rosita Infectious disease consulted and recommending Teflaro, Cipro Acute blood loss anemia, resolved Hemoglobin stable Status post transfusion 2 units packed red blood cells 12/23 Acute kidney injury with hyperkalemia, improving Likely due to urinary retention Avoid nephrotoxins Rhabdomyolysis, resolved Could have been secondary to blood anemia vegetation versus fall Status post IV fluids Metabolic/toxic encephalopathy, resolved Multifactorial with urinary tract infection, sepsis, renal failure, pain medication Improved after discontinuation of morphine Chronic systolic/diastolic congestive heart failure Recent echocardiogram indicates ejection fraction 2530 percent Continue Coreg, lisinopril Left drop foot: Acute. May have had peroneal nerve injury from unwitnessed fall Patient deferring MRI study at this time for evaluation Podiatry consulted, Dr. Snider has evaluated patient. States deep peroneal nerve compression could be from sitting/lying position/long hospitalization, or lumbar radiculopathy. Recommendations as follows: Continue wearing boot to keep foot/lower leg at 90 degrees and stabilized to prevent falls. Consider AFO if symptoms continue long-term. Consider neuro consult for EMG/Nerve conduction studies if symptoms persist Hypertension, coronary disease Coreg 6.25 mg twice daily lisinopril 5 mg daily Apresoline 25 mg every 8 hours PAD, Hyperlipidemia, Hx of Breast Cancer,SLE,Asthma, chronic and stable No change to baseline treatments, Follow clinically DVT prophylaxis heparin and SCD Discharge Planning Complicated discharge. Case management managing discharge planning. Apparently patient has used a rehabilitation center benefits without co-pay. Patient does not have the funds for a co-pay. Patient will remain in hospital until she is able to function at home or until case management can arrange other discharge planning Baldemar Black Jan 08, 2017 11:33
[2017-01-08] MEDS: hydrALAZINE HCL 25 MG TAB PO SCH ×2 (13:00→21:27)
--- NOTE | 2017-01-08 13:30 | PD.WCN.NOT ---
Wound Consult Description: Patient seen on 5th floor [facility] for follow up of pressure injuries to R BKA stump, and R posterior knee. ALLEN Shaw in room removing dressing in place to reveal R posterior BKA stump pressure injury.Wound bed presents with 30% pink tissue, 30% red non granulation tissue and 40% yellow slough. Wound is draining moderate sero-sangunaous drainage. Wound is measureing larger than previously noted.Wound measurements are as follows:4x2x1.Undermining noted between 5 and 7 oclock 3.4 cm at deepest. Cleansed wound with wound cleanser and loosly packed wound with 2 saline moistened 2x2s in wound bed covered with dry 4x4 gauze. Dressing secured with ABD pad, rolled gauze and tape. DTI noted to R posterior knee is now opening to partial thickness skin loss and measuring smaller. Left wound open to air.Wound measuring 2x1. Patient is to have surgery for debridement of R posterior BKA wound Per Doctor Wakefield. Communicated with: ALLEN Shaw Recommendation: Please Continue dressing changes as ordered by Doctor Wakefield. Violeta Pelayo Jan 08, 2017 13:30
[2017-01-08 20:00] VITALS: BP 153/82; PULSE 74; RESP 19; TEMP 98.3; O2SAT 98
[2017-01-08] MEDS: MONTELUKAST SODIUM 10 MG TAB PO SCH (20:16)
[2017-01-08] MEDS: ATORVASTATIN 40 MG TAB PO SCH (20:16)
[2017-01-08] MEDS: TEMAZEPAM 7.5 MG CAP PO PRN (21:27)
[2017-01-09] MEDS: CEFTOLOZANE-TAZOBACTAM INJ 1,500 MG in SODIUM CHLORIDE 0.9% INJ 100 ML IV SCH ×3 (01:59→17:56)
[2017-01-09] MEDS: oxyCODONE/ACETAMINOPHEN 5 MG/325 MG TAB PO PRN ×4 (03:28→21:35)
[2017-01-09] MEDS: VANCOMYCIN INJ 1,000 MG in SODIUM CHLOR 0.9% 250 ML INJ 250 ML IV SCH ×2 (03:29→15:29)
[2017-01-09] MEDS: hydrALAZINE HCL 25 MG TAB PO SCH ×3 (05:41→21:36)
[2017-01-09] MEDS: HEPARIN SODIUM - SQ 10,000 UNITS/ML VIAL SQ SCH ×3 (05:41→21:36)
[2017-01-09] MEDS: GABAPENTIN 300 MG CAP PO SCH (05:41)
[2017-01-09 08:00] VITALS: BP 138/66; PULSE 80; RESP 16; TEMP 98; O2SAT 97
[2017-01-09] MEDS: LISINOPRIL 5 MG TAB PO SCH ×3 (08:10→20:27)
[2017-01-09] MEDS: LACTOBACILLUS ACIDOPHILUS TAB PO SCH ×3 (08:12→17:56)
[2017-01-09] MEDS: AMIODARONE 200 MG TAB PO SCH (08:12)
[2017-01-09] MEDS: CARVEDILOL 6.25 MG TAB PO SCH ×2 (08:12→20:24)
[2017-01-09] MEDS: ASPIRIN 81 MG CHEW TAB PO SCH (08:12)
[2017-01-09] MEDS: DULoxetine HCl DR 60 MG CAP PO SCH (08:12)
[2017-01-09] MEDS: metFORMIN HCL 500 MG TAB PO SCH ×2 (08:12→17:56)
[2017-01-09] MEDS: COLLAGENASE OINT 30 GM TUBE TOPICAL SCH (08:15)
[2017-01-09] MEDS: NYSTATIN 100,000 U/GM OINT 15 GM TUBE TOPICAL SCH ×2 (08:15→20:28)
--- NOTE | 2017-01-09 09:59 | HHI.PR ---
Subjective Remarks Patient seen and examined today for follow-up on inability to care for self, right stump wound. Patient is in agreement with moving forward with above-the- knee amputation. Awaiting vascular surgery to make arrangements. Objective Vitals Vital Signs Date Time Temp Pulse Resp B/P Pulse Ox O2 Delivery O2 Flow Rate FiO2 01/09/17 08:00 98.0 80 16 138/66 97 01/09/17 04:28 16 01/08/17 20:00 98.3 74 19 153/82 98 I/O 01/08/17 01/08/17 01/08/17 01/09/17 01/09/17 01/09/17 07:00 15:00 23:00 07:00 15:00 23:00 Intake Total 480 ml 100 ml 1220 ml 620 ml Output Total 650 ml Balance -170 ml 100 ml 1220 ml 620 ml Intake Oral 480 ml 1220 ml 120 ml IV Total 100 ml 500 ml Output Urine Total 650 ml # Voids 9 5 1 # Bowel Movements 0 Result Diagram: 01/06/17 1650 01/06/17 1650 Objective Remarks GENERAL: Well-developed, well-nourished, in no acute distress. alert and orientated HEENT: Head is normocephalic without any lesions or masses noted. Facial features are symmetric. Eyes: Extraocular muscles are intact. Conjunctivae were clear. NECK: Supple without any masses. Trachea midline no deviation. No JVD, CARDIAC: Regular rhythm, regular rate. S1/S2 are heard. No murmurs gallops or rubs. LUNGS: Clear to auscultation bilaterally. No wheeze, rhonchi or rales. No use of accessory muscles on inspiration or expiration. ABDOMEN: Soft, nontender. Nondistended. Bowel sounds heard in all 4 quadrants. No organomegaly or masses. Negative rebound, negative guarding EXTREMITIES: No edema, pulses are equal bilaterally. No cyanosis or clubbing. 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 Left lower extremity has fracture boot NEUROLOGY: Mood and affect appear appropriate. Cranial nerves II through XII grossly intact. 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 Dr. De Leon evaluated patient and recommending wound care Vascular surgery was consulted who recommended above--knee amputation, patient now in agreement with surgery Vascular surgery was notified and plans on evaluating the patient today Wound culture showing Pseudomonas, MRSA Infectious disease consulted Antibiotics to include vancomycin, Teflaro Continue physical therapy Continue case management for discharge planning Pain control Continue gabapentin, Cymbalta Percocet 5 one tablet every 6 hours as needed for pain 610 Diabetes type 2 with peripheral neuropathy Continue metformin 500 twice a day Sepsis with urinary tract infection, recurrent Patient stable at this time, no longer febrile, leukocytosis resolved Urinary culture with MRSA, Pseudomonas, Rosita Infectious disease consulted and recommending Teflaro, Cipro Acute blood loss anemia, resolved Hemoglobin stable Status post transfusion 2 units packed red blood cells 12/23 Acute kidney injury with hyperkalemia, improving Likely due to urinary retention Avoid nephrotoxins Rhabdomyolysis, resolved Status post IV fluids Metabolic/toxic encephalopathy, resolved Multifactorial with urinary tract infection, sepsis, renal failure, pain medication Improved after discontinuation of morphine Chronic systolic/diastolic congestive heart failure Recent echocardiogram indicates ejection fraction 2530 percent Continue Coreg, lisinopril Left drop foot: Acute. May have had peroneal nerve injury from unwitnessed fall Patient deferring MRI study at this time for evaluation Podiatry consulted, Dr. Snider has evaluated patient. States deep peroneal nerve compression could be from sitting/lying position/long hospitalization, or lumbar radiculopathy. Recommendations as follows: Continue wearing boot to keep foot/lower leg at 90 degrees and stabilized to prevent falls. Consider AFO if symptoms continue long-term. Consider neuro consult for EMG/Nerve conduction studies if symptoms persist Hypertension, coronary disease Coreg 6.25 mg twice daily lisinopril 5 mg daily, increase to 5 mg twice daily Apresoline 25 mg every 8 hours PAD, Hyperlipidemia, Hx of Breast Cancer,SLE,Asthma, chronic and stable No change to baseline treatments, Follow clinically DVT prophylaxis heparin and SCD Discharge Planning Complicated discharge. Case management managing discharge planning. Apparently patient has used a rehabilitation center benefits without co-pay. Patient does not have the funds for a co-pay. Patient will remain in hospital until she is able to function at home or until case management can arrange other discharge planning Baldemar Black Jan 09, 2017 09:59
[2017-01-09 20:00] VITALS: BP 157/77; PULSE 86; RESP 18; TEMP 98.9; O2SAT 99
[2017-01-09] MEDS: MONTELUKAST SODIUM 10 MG TAB PO SCH (20:24)
[2017-01-09] MEDS: ATORVASTATIN 40 MG TAB PO SCH (20:24)
[2017-01-09] MEDS: TEMAZEPAM 7.5 MG CAP PO PRN (21:39)
[2017-01-10] MEDS: CEFTOLOZANE-TAZOBACTAM INJ 1,500 MG in SODIUM CHLORIDE 0.9% INJ 100 ML IV SCH ×3 (01:55→18:08)
[2017-01-10] MEDS: VANCOMYCIN INJ 1,000 MG in SODIUM CHLOR 0.9% 250 ML INJ 250 ML IV SCH ×2 (03:20→16:00)
[2017-01-10] MEDS: oxyCODONE/ACETAMINOPHEN 5 MG/325 MG TAB PO PRN ×4 (03:32→23:05)
[2017-01-10] MEDS: hydrALAZINE HCL 25 MG TAB PO SCH ×3 (05:10→21:53)
[2017-01-10] MEDS: HEPARIN SODIUM - SQ 10,000 UNITS/ML VIAL SQ SCH ×3 (05:10→22:00)
[2017-01-10] MEDS: GABAPENTIN 300 MG CAP PO SCH (05:10)
[2017-01-10 08:00] VITALS: BP 157/87; PULSE 85; RESP 18; TEMP 99.7; O2SAT 97
[2017-01-10] MEDS: DULoxetine HCl DR 60 MG CAP PO SCH (08:44)
[2017-01-10] MEDS: AMIODARONE 200 MG TAB PO SCH (08:44)
[2017-01-10] MEDS: ASPIRIN 81 MG CHEW TAB PO SCH (08:44)
[2017-01-10] MEDS: metFORMIN HCL 500 MG TAB PO SCH ×2 (08:44→18:07)
[2017-01-10] MEDS: LISINOPRIL 5 MG TAB PO SCH ×2 (08:44→21:53)
[2017-01-10] MEDS: CARVEDILOL 6.25 MG TAB PO SCH ×2 (08:44→21:53)
[2017-01-10] MEDS: LACTOBACILLUS ACIDOPHILUS TAB PO SCH ×3 (08:44→18:07)
[2017-01-10] MEDS: COLLAGENASE OINT 30 GM TUBE TOPICAL SCH (09:00)
[2017-01-10] MEDS: NYSTATIN 100,000 U/GM OINT 15 GM TUBE TOPICAL SCH ×2 (09:00→22:00)
--- NOTE | 2017-01-10 09:05 | HHI.PR ---
Subjective Remarks Patient seen and examined today for follow-up on unable to care for self, right lower extremity stump wound. Patient denies any new complaints. Awaiting vascular surgery to arrange for [id number] amputation Objective Vitals Vital Signs Date Time Temp Pulse Resp B/P Pulse Ox O2 Delivery O2 Flow Rate FiO2 01/10/17 04:32 16 01/09/17 20:00 98.9 86 18 157/77 99 I/O 01/09/17 01/09/17 01/09/17 01/10/17 01/10/17 01/10/17 07:00 15:00 23:00 07:00 15:00 23:00 Intake Total 620 ml 300 ml 1180 ml 800 ml Output Total 300 ml 600 ml Balance 620 ml 0 ml 580 ml 800 ml Intake Oral 120 ml 300 ml 1180 ml 800 ml IV Total 500 ml Output Urine Total 300 ml 600 ml # Voids 5 5 8 # Bowel Movements 0 0 Result Diagram: 01/06/17 1650 01/06/17 165 Objective Remarks GENERAL: Well-developed, well-nourished, in no acute distress. alert and orientated HEENT: Head is normocephalic without any lesions or masses noted. Facial features are symmetric. Eyes: Extraocular muscles are intact. Conjunctivae were clear. NECK: Supple without any masses. Trachea midline no deviation. No JVD, CARDIAC: Regular rhythm, regular rate. S1/S2 are heard. No murmurs gallops or rubs. LUNGS: Clear to auscultation bilaterally. No wheeze, rhonchi or rales. No use of accessory muscles on inspiration or expiration. ABDOMEN: Soft, nontender. Nondistended. Bowel sounds heard in all 4 quadrants. No organomegaly or masses. Negative rebound, negative guarding EXTREMITIES: No edema, pulses are equal bilaterally. No cyanosis or clubbing. Right lower extremity below knee amputation with bandage NEUROLOGY: Mood and affect appear appropriate. Cranial nerves II through XII grossly intact. 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 Dr. De Leon evaluated patient and recommending wound care Vascular surgery was consulted who recommended above--knee amputation, patient now in agreement with surgery Vascular surgery was notified and plans on evaluating the patient to arrange [id number] amputation Wound culture showing Pseudomonas, MRSA Infectious disease consulted Antibiotics to include vancomycin, Teflaro Continue physical therapy Continue case management for discharge planning Pain control Continue gabapentin, Cymbalta Percocet 5 one tablet every 6 hours as needed for pain 610 Diabetes type 2 with peripheral neuropathy Continue metformin 500 twice a day Sepsis with urinary tract infection, recurrent Patient stable at this time, no longer febrile, leukocytosis resolved Urinary culture with MRSA, Pseudomonas, Rosita Infectious disease consulted and recommending Teflaro, vancomycin Acute blood loss anemia, resolved Hemoglobin stable Status post transfusion 2 units packed red blood cells 12/23 Acute kidney injury with hyperkalemia, improving Likely due to urinary retention Avoid nephrotoxins Rhabdomyolysis, resolved Status post IV fluids Metabolic/toxic encephalopathy, resolved Multifactorial with urinary tract infection, sepsis, renal failure, pain medication Improved after discontinuation of morphine Chronic systolic/diastolic congestive heart failure Recent echocardiogram indicates ejection fraction 2530 percent Continue Coreg, lisinopril Left drop foot: Acute. May have had peroneal nerve injury from unwitnessed fall Patient deferring MRI study at this time for evaluation Podiatry consulted, Dr. Snider has evaluated patient. States deep peroneal nerve compression could be from sitting/lying position/long hospitalization, or lumbar radiculopathy. Recommendations as follows: Continue wearing boot to keep foot/lower leg at 90 degrees and stabilized to prevent falls. Consider AFO if symptoms continue long-term. Consider neuro consult for EMG/Nerve conduction studies if symptoms persist Hypertension, coronary disease Coreg 6.25 mg twice daily lisinopril 5 mg daily, increase to 5 mg twice daily Apresoline 25 mg every 8 hours PAD, Hyperlipidemia, Hx of Breast Cancer,SLE,Asthma, chronic and stable No change to baseline treatments, Follow clinically DVT prophylaxis heparin and SCD Discharge Planning Complicated discharge. Case management managing discharge planning. Apparently patient has used a rehabilitation center benefits without co-pay. Patient does not have the funds for a co-pay. Patient will remain in hospital until she is able to function at home or until case management can arrange other discharge planning Baldemar Black Jan 10, 2017 09:05
--- NOTE | 2017-01-10 16:38 | PD.CAR.PN ---
CVT Progress Note Subjective/Hospital Course: Patient known to me from previous encounters Referral received Full consult to deandre Cooper 01/06/17 Full consult has been dictated for details please refer to it. The stump has healed well however there is a penetrating wound and posterior aspect of the stump prison up the soleus muscle way away from any incisions. This is definitely NOT a pressure sore but clearly a penetrating injury. Patient states that she fell out of bed and impaled herself on the handlebar of her wheelchair in this is exactly how this looks like Wound is penetrating posteriorly and going close to the bone He has grown out MRSA and multidrug resistance organisms as well as Pseudomonas At this point we will continue the dressings and washings and allow it to clean itself out for a few days and then in a week or so I'll take the patient to the operating room at [facility] to debride the stump and place a wound VAC For that procedure patient does NOT need to be transferred to the main hospital 01/10/17 Patient with a deep wound to the right calf and now reaching all the way to the bone Since beginning of the week this has not improved and [id number] is gotten worse with more drainage At this point I do not see any purpose in opening these placing wound vacs in such because this is all the way to the bone and osteomyelitis by definition Patient will need above-knee amputation and she agrees to it I have spoken Mr Wayne GERARDO, and patient will be transferred to the [facility] hospital for above-knee amputation Second opinion will be by Dr. Salazar tomorrow Objective: Vital Signs Date Time Temp Pulse Resp B/P Pulse Ox O2 Delivery O2 Flow Rate FiO2 01/10/17 08:00 99.7 85 18 157/87 97 01/10/17 04:32 16 01/09/17 20:00 98.9 86 18 157/77 99 Result Diagram: 01/06/17 1650 01/06/17 165 Chantale Wakefield MD Jan 10, 2017 16:38
[2017-01-10 20:00] VITALS: BP 150/63; PULSE 83; RESP 20; TEMP 96.7; O2SAT 98
[2017-01-10] MEDS: MONTELUKAST SODIUM 10 MG TAB PO SCH (21:53)
[2017-01-10] MEDS: ATORVASTATIN 40 MG TAB PO SCH (21:54)
[2017-01-10] MEDS: TEMAZEPAM 7.5 MG CAP PO PRN (23:05)
[2017-01-11 02:05] VITALS: BP 151/67; PULSE 72; RESP 18; TEMP 98.2; O2SAT 99
[2017-01-11 04:27] VITALS: BP 113/55; PULSE 78; RESP 18; TEMP 98.4; O2SAT 98
[2017-01-11] MEDS: VANCOMYCIN INJ 1,000 MG in SODIUM CHLOR 0.9% 250 ML INJ 250 ML IV SCH ×2 (04:44→16:31)
[2017-01-11] MEDS: CEFTOLOZANE-TAZOBACTAM INJ 1,500 MG in SODIUM CHLORIDE 0.9% INJ 100 ML IV SCH ×3 (04:45→16:30)
[2017-01-11] MEDS: hydrALAZINE HCL 25 MG TAB PO SCH ×3 (05:20→20:53)
[2017-01-11] MEDS: GABAPENTIN 300 MG CAP PO SCH (05:20)
[2017-01-11] MEDS: oxyCODONE/ACETAMINOPHEN 5 MG/325 MG TAB PO PRN ×3 (05:21→17:18)
[2017-01-11] MEDS: HEPARIN SODIUM - SQ 10,000 UNITS/ML VIAL SQ SCH ×3 (05:25→20:53)
[2017-01-11 08:50] VITALS: BP 146/69; PULSE 81; PULSE 84; RESP 17; TEMP 98.6; O2SAT 97
[2017-01-11] MEDS: COLLAGENASE OINT 30 GM TUBE TOPICAL SCH (09:00)
[2017-01-11] MEDS: NYSTATIN 100,000 U/GM OINT 15 GM TUBE TOPICAL SCH ×2 (09:00→20:53)
[2017-01-11] MEDS: DULoxetine HCl DR 60 MG CAP PO SCH (09:00)
[2017-01-11] MEDS: metFORMIN HCL 500 MG TAB PO SCH ×2 (09:00→16:31)
[2017-01-11 09:35] LABS: HEMATOCRIT 27.2 % (35.0-46.0); MEAN CELL VOLUME 86.8 FL (80.0-100.0); MEAN CORPUSCULAR HEMOGLOBIN 28.5 PG (27.0-34.0); MEAN CORPUSCULAR HGB CONC 32.8 % (32.0-36.0); PLATELET COUNT 241 TH/MM3 (150-450); RED BLOOD COUNT 3.14 MIL/MM3 (4.00-5.30); RED CELL DISTRIBUTION WIDTH 18.6 % (11.6-17.2); REVIEW FLAG FINAL
--- NOTE | 2017-01-11 09:41 | PD.CAR.PN ---
CVT Progress Note Subjective/Hospital Course: Patient known to me from previous encounters Referral received Full consult to deandre Cooper 01/06/17 Full consult has been dictated for details please refer to it. The stump has healed well however there is a penetrating wound and posterior aspect of the stump intermediate up the soleus muscle way away from any incisions. This is definitely NOT a pressure sore but clearly a penetrating injury. Patient states that she fell out of bed and impaled herself on the handlebar of her wheelchair in this is exactly how this looks like Wound is penetrating posteriorly and going close to the bone He has grown out MRSA and multidrug resistance organisms as well as Pseudomonas At this point we will continue the dressings and washings and allow it to clean itself out for a few days and then in a week or so I'll take the patient to the operating room at [facility] to debride the stump and place a wound VAC For that procedure patient does NOT need to be transferred to the [facility] hospital 01/10/17 Patient with a deep wound to the right calf and now reaching all the way to the bone Since beginning of the week this has not improved and [id number] is gotten worse with more drainage At this point I do not see any purpose in opening these placing wound vacs in such because this is all the way to the bone and osteomyelitis by definition Patient will need above-knee amputation and she agrees to it I have spoken Mr Wayne GERARDO, and patient will be transferred to the [facility] hospital for above-knee amputation Second opinion will be by Dr. Salazar tomorrow 01/11/17 Patient has a large penetrating wound in the back of her calf is draining and and by palpation this goes all the way to the tibia which by definition is now exposed to osteomyelitis Patient is now bedridden and can barely take care of herself Debriding this placing a wound VAC and trying to close it in the future will lead to further prolongation of her hospital stay and debilitation The best option at this point is above-knee amputation In order to obtain second opinion we will have to postpone surgery until tomorrow Objective: Vital Signs Date Time Temp Pulse Resp B/P Pulse Ox O2 Delivery O2 Flow Rate FiO2 01/11/17 08:50 98.6 81 17 146/69 97 01/11/17 08:50 84 01/11/17 04:27 98.4 78 18 113/55 98 01/11/17 02:05 98.2 72 18 151/67 99 01/10/17 20:00 96.7 83 20 150/63 98 Chantale Wakefield MD Jan 11, 2017 09:41
[2017-01-11 09:45] LABS: BICARBONATE 20.9 MEQ/L (21.0-32.0); POTASSIUM 3.6 MEQ/L (3.5-5.1)
[2017-01-11] MEDS: AMIODARONE 200 MG TAB PO SCH (10:56)
[2017-01-11] MEDS: ASPIRIN 81 MG CHEW TAB PO SCH (10:56)
[2017-01-11] MEDS: CARVEDILOL 6.25 MG TAB PO SCH ×2 (10:56→20:53)
[2017-01-11] MEDS: LACTOBACILLUS ACIDOPHILUS TAB PO SCH ×3 (10:56→16:31)
[2017-01-11] MEDS: LISINOPRIL 5 MG TAB PO SCH ×2 (10:56→20:53)
--- NOTE | 2017-01-11 11:19 | HHI.PR ---
Subjective Remarks Follow-up right infected BKA stump 01/11/17-patient seen and examined, she is currently nothing by mouth pending right AKA. Patient was transferred from [place] To [facility]. Currently afebrile Objective Vitals Vital Signs Date Time Temp Pulse Resp B/P Pulse Ox O2 Delivery O2 Flow Rate FiO2 01/11/17 08:50 98.6 81 17 146/69 97 01/11/17 08:50 84 01/11/17 04:27 98.4 78 18 113/55 98 01/11/17 02:05 98.2 72 18 151/67 99 01/10/17 20:00 96.7 83 20 150/63 98 I/O 01/10/17 01/10/17 01/10/17 01/11/17 01/11/17 01/11/17 07:00 15:00 23:00 07:00 15:00 23:00 Intake Total 800 ml 720 ml Output Total 240 ml 100 ml Balance 800 ml 480 ml -100 ml Intake Oral 800 ml 720 ml Output Urine Total 240 ml 100 ml # Voids 4 1 # Bowel Movements 0 Result Diagram: 01/11/17 0624 01/11/17 0624 Imaging Last Impressions Knee X-Ray 01/03/17 1407 Signed Impressions: Service Date/Time: Tuesday, January 03, 2017 14:39 - CONCLUSION: 1 cm osteochondral abnormality of the central medial femoral condyle. Mild medial compartment narrowing. Richar Rios MD Ankle X-Ray 01/03/17 1407 Signed Impressions: Service Date/Time: Tuesday, January 03, 2017 14:39 - CONCLUSION: No significant interval change. Distal fibula shaft fracture again identified with some bone callus. No new fracture identified. Richar Rois MD Renal Ultrasound 12/14/16 0000 Signed Impressions: Service Date/Time: Wednesday, December 14, 2016 16:15 - CONCLUSION: Moderate bilateral hydronephrosis and significantly distended urinary bladder with debris. The findings raise the possibility of bladder outlet obstruction. Clinical correlation is recommended. Gage Lubin MD Objective Remarks GENERAL: NAD SKIN: Warm and dry. HEAD: Normocephalic. EYES: No scleral icterus. No injection or drainage. NECK: Supple, trachea midline. No JVD or lymphadenopathy. CARDIOVASCULAR: Regular rate and rhythm without murmurs, gallops, or rubs. RESPIRATORY: Breath sounds equal bilaterally. No accessory muscle use. GASTROINTESTINAL: Abdomen soft, non-tender, nondistended. MUSCULOSKELETAL: No cyanosis, or edema. Right BKA with dressing over the stump BACK: Nontender without obvious deformity. No CVA tenderness. A/P Problem List: (1) Amputation stump infection ICD Code: T87.40 Status: Acute (2) DM (diabetes mellitus) ICD Code: E11.9 Status: Chronic (3) CHF (congestive heart failure) ICD Code: I50.9 Status: Acute (4) Amputation of right lower extremity below knee ICD Code: Z89.511 Status: Acute (5) HTN (hypertension) ICD Code: I10 Status: Chronic (6) CAD (coronary artery disease) ICD Code: I25.10 Status: Chronic Assessment and Plan 61 years old female admitted with Status post R BKA, 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, r/t Diabetic Neuropathy, with infected right BKA stump Vascular surgery was notified and plans to proceed with right AKA today Wound culture showing Pseudomonas, MRSA Infectious disease consulted Antibiotics to include vancomycin, Teflaro Continue physical therapy Pain control Continue gabapentin, Cymbalta Percocet 5 one tablet every 6 hours as needed for pain 610 Diabetes type 2 with peripheral neuropathy Continue metformin 500 twice a day Sepsis with urinary tract infection, recurrent Urinary culture with MRSA, Pseudomonas, Rosita Currently on Teflaro, vancomycin per infectious disease specialist Acute blood loss anemia, resolved Hemoglobin stable Status post transfusion 2 units packed red blood cells 12/23 Acute kidney injury with hyperkalemia, improving Likely due to urinary retention Avoid nephrotoxins Rhabdomyolysis, resolved Status post IV fluids Metabolic/toxic encephalopathy, resolved Multifactorial with urinary tract infection, sepsis, renal failure, pain medication Chronic systolic/diastolic congestive heart failure Recent echocardiogram indicates ejection fraction 2530 percent Continue Coreg, lisinopril Left drop foot: Acute. May have had peroneal nerve injury from unwitnessed fall Patient deferring MRI study at this time for evaluation Podiatry consulted, Dr. Snider has evaluated patient. States deep peroneal nerve compression could be from sitting/lying position/long hospitalization, or lumbar radiculopathy. Recommendations as follows: Continue wearing boot to keep foot/lower leg at 90 degrees and stabilized to prevent falls. Consider AFO if symptoms continue long-term. Consider neuro consult for EMG/Nerve conduction studies if symptoms persist Hypertension, coronary disease Coreg 6.25 mg twice daily lisinopril 5 mg daily, increase to 5 mg twice daily Apresoline 25 mg every 8 hours PAD, Hyperlipidemia, Hx of Breast Cancer,SLE,Asthma, chronic and stable No change to baseline treatments, Follow clinically DVT prophylaxis SCD Jean Aviles MD Jan 11, 2017 11:19
[2017-01-11 12:00] VITALS: BP 154/71; PULSE 87; RESP 18; TEMP 98.3; O2SAT 96
[2017-01-11 16:00] VITALS: BP 139/78; PULSE 82; RESP 18; TEMP 98; O2SAT 96
[2017-01-11 20:00] VITALS: BP 132/55; PULSE 79; RESP 20; TEMP 98.6; O2SAT 97
[2017-01-11] MEDS: MONTELUKAST SODIUM 10 MG TAB PO SCH (20:53)
[2017-01-11] MEDS: ATORVASTATIN 40 MG TAB PO SCH (20:53)
[2017-01-11] MEDS: TEMAZEPAM 7.5 MG CAP PO PRN (20:56)
[2017-01-12] VITALS (7 sets, daily range): BP systolic 101–146; BP diastolic 54–77; PULSE 71–89; RESP 18–20; TEMP 97.5–98.9; O2SAT 94–99
[2017-01-12] MEDS: oxyCODONE/ACETAMINOPHEN 5 MG/325 MG TAB PO PRN ×3 (02:19→17:42)
[2017-01-12] MEDS: CEFTOLOZANE-TAZOBACTAM INJ 1,500 MG in SODIUM CHLORIDE 0.9% INJ 100 ML IV SCH ×3 (03:04→17:42)
[2017-01-12] MEDS: VANCOMYCIN INJ 1,000 MG in SODIUM CHLOR 0.9% 250 ML INJ 250 ML IV SCH ×2 (04:36→16:45)
[2017-01-12] MEDS: HEPARIN SODIUM - SQ 10,000 UNITS/ML VIAL SQ SCH ×3 (06:00→20:33)
[2017-01-12] MEDS: hydrALAZINE HCL 25 MG TAB PO SCH ×3 (06:24→20:52)
[2017-01-12] MEDS: GABAPENTIN 300 MG CAP PO SCH (06:24)
[2017-01-12] MEDS: CARVEDILOL 6.25 MG TAB PO SCH ×2 (08:09→20:33)
[2017-01-12] MEDS: LACTOBACILLUS ACIDOPHILUS TAB PO SCH ×3 (08:09→17:42)
[2017-01-12] MEDS: ASPIRIN 81 MG CHEW TAB PO SCH (08:09)
[2017-01-12] MEDS: AMIODARONE 200 MG TAB PO SCH (08:09)
[2017-01-12] MEDS: LISINOPRIL 5 MG TAB PO SCH ×2 (08:09→20:52)
[2017-01-12] MEDS: DULoxetine HCl DR 60 MG CAP PO SCH (08:09)
[2017-01-12] MEDS: NYSTATIN 100,000 U/GM OINT 15 GM TUBE TOPICAL SCH ×2 (08:12→20:33)
[2017-01-12] MEDS: COLLAGENASE OINT 30 GM TUBE TOPICAL SCH (08:12)
[2017-01-12] MEDS: metFORMIN HCL 500 MG TAB PO SCH ×2 (08:12→17:18)
[2017-01-12] MEDS ORDERED: BUPIVACAINE HCL PF 0.5% 30 ML VIAL NERV BLOCK ONE (08:37)
--- NOTE | 2017-01-12 08:58 | HHI.PR ---
Subjective Remarks Follow-up right infected BKA stump 01/11/17-patient seen and examined, she is currently nothing by mouth pending right AKA. Patient was transferred from [place] To [facility]. Currently afebrile 01/12/17-patient seen and examined; apparently her surgery was postponed until a second opinion could've been rendered. However patient states she was not seen by any other surgeon ordered then Dr. Wilson Currently Nothing by mouth and no acute event overnight Objective Vitals Vital Signs Date Time Temp Pulse Resp B/P Pulse Ox O2 Delivery O2 Flow Rate FiO2 01/12/17 08:00 98.1 83 18 146/77 99 01/12/17 04:00 98.5 84 20 133/77 95 01/12/17 00:00 98.9 81 18 110/56 96 01/11/17 20:00 98.6 79 20 132/55 97 Manual Cuff/Auscultation 01/11/17 16:00 98.0 82 18 139/78 96 01/11/17 12:00 98.3 87 18 154/71 96 I/O 01/11/17 01/11/17 01/11/17 01/12/17 01/12/17 01/12/17 06:59 14:59 22:59 06:59 14:59 22:59 Intake Total 240 ml 545 ml Output Total 100 ml 125 ml 800 ml Balance -100 ml 115 ml -255 ml Intake Oral 240 ml 240 ml IV Total 305 ml Output Urine Total 100 ml 125 ml 800 ml # Voids 1 4 # Bowel Movements 0 0 Result Diagram: 01/11/1762301/11/1724 Objective Remarks GENERAL: NAD SKIN: Warm and dry. HEAD: Normocephalic. EYES: No scleral icterus. No injection or drainage. NECK: Supple, trachea midline. No JVD or lymphadenopathy. CARDIOVASCULAR: Regular rate and rhythm without murmurs, gallops, or rubs. RESPIRATORY: Breath sounds equal bilaterally. No accessory muscle use. GASTROINTESTINAL: Abdomen soft, non-tender, nondistended. MUSCULOSKELETAL: No cyanosis, or edema. Right BKA with dressing over the stump BACK: Nontender without obvious deformity. No CVA tenderness. A/P Problem List: (1) Amputation stump infection ICD Code: T87.40 Status: Acute (2) DM (diabetes mellitus) ICD Code: E11.9 Status: Chronic (3) CHF (congestive heart failure) ICD Code: I50.9 Status: Acute (4) Amputation of right lower extremity below knee ICD Code: Z89.511 Status: Acute (5) HTN (hypertension) ICD Code: I10 Status: Chronic (6) CAD (coronary artery disease) ICD Code: I25.10 Status: Chronic Assessment and Plan 61 years old female admitted with Status post R BKA, 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, r/t Diabetic Neuropathy, with infected right BKA stump Vascular surgery was notified and plans to proceed with right AKA today Wound culture showing Pseudomonas, MRSA Infectious disease consulted Antibiotics to include vancomycin, Teflaro Continue physical therapy Pain control Continue gabapentin, Cymbalta Percocet 5 one tablet every 6 hours as needed for pain 610 Diabetes type 2 with peripheral neuropathy Continue metformin 500 twice a day Sepsis with urinary tract infection, recurrent Urinary culture with MRSA, Pseudomonas, Rosita Currently on Teflaro, vancomycin per infectious disease specialist Acute blood loss anemia, resolved Status post transfusion 2 units packed red blood cells 12/23 Acute kidney injury with hyperkalemia, improving Likely due to urinary retention Avoid nephrotoxins Rhabdomyolysis, resolved Status post IV fluids Metabolic/toxic encephalopathy, resolved Multifactorial with urinary tract infection, sepsis, renal failure, pain medication Chronic systolic/diastolic congestive heart failure Recent echocardiogram indicates ejection fraction 2530 percent Continue Coreg, lisinopril Left drop foot: Acute. May have had peroneal nerve injury from unwitnessed fall Patient deferring MRI study at this time for evaluation Podiatry consulted, Dr. Snider has evaluated patient. States deep peroneal nerve compression could be from sitting/lying position/long hospitalization, or lumbar radiculopathy. Recommendations as follows: Continue wearing boot to keep foot/lower leg at 90 degrees and stabilized to prevent falls. Consider AFO if symptoms continue long-term. Consider neuro consult for EMG/Nerve conduction studies if symptoms persist Hypertension, coronary disease Coreg 6.25 mg twice daily lisinopril 5 mg daily, increase to 5 mg twice daily Apresoline 25 mg every 8 hours PAD, Hyperlipidemia, Hx of Breast Cancer,SLE,Asthma, chronic and stable No change to baseline treatments, Follow clinically DVT prophylaxis SCD Jean Aviles MD Jan 12, 2017 08:58
--- NOTE | 2017-01-12 10:01 | EKG ---
Date Performed: 01/10/2017 Time Performed: 20:54:30 PTAGE: 61 years EKG: Sinus rhythm . Short TX interval Possible inferior infarct - age undetermined Possible anterior infarct - age unde termined Lateral ST-T changes may be due to myocardial ischemia Abnormal ECG PREVIOUS TRACING : 11/12/2016 16.01 DOCTOR: Saran Yu Interpretating Date/Time 01/12/2017 09:48:45
--- NOTE | 2017-01-12 11:57 | PD.VS.CON ---
History of Present Illness Chief Complaint: R BKA wound Consult Requested by: Dr. Wakefield History of Present Illness 61 yo female with R BKA and open lateral wound. Asked for second opinion for conversion to AKA. Pt ready for AKA. No f/c, has been getting wound care. Past/Family/Social History Past Medical History DM SLE breast CA CAD EC fistula renal calculi CRI Past Surgical History R BKA CABG bowel resection w/ ostomy mastectomy [facility] Social History former smoker Family History NC Home Medications Active Scripts Sennosides-Docusate Sodium (Anali-Colace)8.6-50 Mg Tab1 Tab PO BID PRN ( Constipation) #60 TAB Ref 0 Prov:Jean Aviles MD 11/21/16 Prednisone 20 Mg Tab20 Mg PO BID #3 TAB Prov:Jean Aviles MD 11/21/16 Oxycodone-Acetaminophen 10-325 mg Tab1 Tab PO Q6H PRN (PAIN) #20 TAB Prov:Jean Aviles MD 11/21/16 Reported Medications Losartan 25 Mg Tab25 Mg PO DAILY #30 TAB Ref 0 11/12/16 Oxycodone-Acetaminophen (Percocet)10-325 mg Tab1 Tab PO QID Ref 0 11/12/16 Metoprolol Tartrate 25 Mg Tab12.5 Mg PO BID #60 TAB Ref 0 11/12/[address] 60 Mg Capdr60 Mg PO BID #30 CAP Ref 0 11/12/16 Alendronate 70 Mg Tab70 Mg PO Q7D #4 TAB Ref 0 10/25/16 Isosorbide Mononitrate ER 30 Mg Taber30 Mg PO DAILY #30 TAB Ref 0 10/02/16 Atorvastatin (Lipitor)40 Mg Tab40 Mg PO HS #30 TAB Ref 0 06/06/16 Cholecalciferol (Vitamin D)5,000 Unit Tab5,000 Units PO DAILY 06/06/16 Montelukast 10 Mg Tab10 Mg PO HS #30 TAB Ref 0 06/06/16 Insulin Human Isophane-Regular 70-30 Inj (Novolin 70-30 Inj)1,000 Unit/10 Ml Vial30 Units SQ BID Ref 0 06/06/16 Insulin Human Regular Inj (Novolin R Inj)1,000 Unit/10 Ml Vial SQ ACHS #10 ML Ref 0 Sliding Scale As Directed. 06/06/16 Gabapentin 300 Mg [id number] Mg PO Q6HR #60 CAP Ref 0 06/06/16 Aspirin 81 Mg Chew81 Mg PO DAILY Ref 0 06/06/16 Amiodarone 200 Mg [id number] Mg PO DAILY #30 TAB Ref 0 06/06/16 Coded Allergies: Bactrim (Verified Allergy, Severe, Shortness of Breath, 12/13/16) Iodine (Verified Allergy, Severe, THROAT SWELLS, 12/13/16) pt states does not have a allergy to Iodine 01/11/16 JF Penicillin (Verified Allergy, Severe, STOPPED BREATHING, 12/13/16) Shellfish (Verified Allergy, Severe, THROAT SWELLS, 12/13/16) *MDRO Multi-Drug Resistant Organism (Verified Adverse Reaction, Unknown, ) 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, wound - 01/04/17 MRSA (urine)-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 on 12/21/16 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 Review of Systems Constitutional: DENIES: Fever, Chills Musculoskeletal: COMPLAINS OF: Joint pain Physical Exam Vitals/I&O Date Time Temp Pulse Resp B/P Pulse Ox O2 Delivery O2 Flow Rate FiO2 01/12/17 08:30 Room Air 01/12/17 08:30 80 01/12/17 08:00 98.1 83 18 146/77 99 01/12/17 04:00 98.5 84 20 133/77 95 01/12/17 00:00 98.9 81 18 110/56 96 01/11/17 20:00 98.6 79 20 132/55 97 Manual Cuff/Auscultation 01/11/17 16:00 98.0 82 18 139/78 96 01/11/17 12:00 98.3 87 18 154/71 96 01/12/17 01/12/17 01/12/17 07:00 15:00 23:00 Intake Total 545 ml Output Total 800 ml Balance -255 ml Neuro: alert, pleasant, no distress HEENT: NC/AT Neck: no JVD Lungs: nonlabored breathing Extremities: R BKA is boggy and lateral, nonhealing wound, probes easily to bone Assessment and Plan Plan nonhealing BKA; I agree with Dr. Wakefield that she needs a RIGHT AKA. The patient understands the harder task of wearing AK (vs BK) prosthesis. To surgery today with Dr. Ashu Salazar MD FACS wrapper hand [facility] at [facility] [phone] Gage Salazar MD Jan 12, 2017 11:57
[2017-01-12] MEDS ORDERED: ePHEDrine/NS 25 MG/5 ML SYR IV ONE ×2 (12:00)
[2017-01-12] MEDS ORDERED: ONDANSETRON HCL 4 MG/2 ML VIAL IV PUSH ONE (12:00)
[2017-01-12] MEDS ORDERED: PHENYLEPH/NS 1000 MCG/10 ML SYR IV ONE (12:00)
[2017-01-12] MEDS ORDERED: PROPOFOL 200 MG/20 ML AMP IV ONE (12:00)
[2017-01-12] MEDS ORDERED: MIDAZOLAM HCL 2 MG/2 ML VIAL ONE ×2 (13:29→15:52)
[2017-01-12] MEDS ORDERED: SUGAMMADEX SODIUM 200 MG/2 ML VIAL IV PUSH ONE ×2 (13:30)
[2017-01-12] MEDS ORDERED: KETAMINE HCL 500 MG/5 ML VIAL ONE (13:30)
[2017-01-12] MEDS ORDERED: ACETAMINOPHEN 1000 MG/100 ML VIAL IV ONE (13:30)
[2017-01-12] MEDS ORDERED: DO NOT ADM ANY ANTICOAGULANT DRUGS PRN (15:45)
[2017-01-12] MEDS ORDERED: fentaNYL CITRATE 250 MCG/5 ML AMP ONE (15:53)
[2017-01-12] MEDS ORDERED: MORPHINE SULFATE 4 MG/ML INJ IV PUSH PRN (20:00)
[2017-01-12] MEDS: MONTELUKAST SODIUM 10 MG TAB PO SCH (20:53)
[2017-01-12] MEDS: ATORVASTATIN 40 MG TAB PO SCH (20:53)
--- NOTE | 2017-01-12 23:40 | MP ---
cc: CHANTALE EVANS MD DATE OF SURGERY: 01/12/2017 PREOPERATIVE DIAGNOSIS: Peripheral vascular disease, diabetes mellitus, osteomyelitis of the right tibia after trauma to the right leg. POSTOPERATIVE DIAGNOSIS: Peripheral vascular disease, diabetes mellitus, osteomyelitis of the right tibia after trauma to the right leg. OPERATION: Right above-knee amputation. SURGEON: Dr. Evans ANESTHESIA General. ESTIMATED BLOOD LOSS: 200 cc. DESCRIPTION OF PROCEDURE: The patient was prepped and draped in the usual fashion, anterior incision made just above the knee, deepened down through the quadriceps tendon and patellar tendon to the femur, lateral incision is extended bilaterally and then the saphenous vein is clamped with hemostats, divided and ligated with 2-0 silk. Incision deepened further down. The superficial femoral artery and veins are separately clamped, divided, and ligated with 2-0 Vicryl stick ties. Several small bleeders were divided and ligated. The posterior skin incision is now made. The femur is now freed up to about 2 inches above the level of the skin amputation, using periosteal elevator and then femur is transected at this level with oscillating saw. A posterior flap was created with amputation knife and specimen removed. About seven or eight hemostats were placed on various bleeders from collaterals and then each one is tied off with 2-0 Vicryl stick ties. Once this was completed, small bleeders are cauterized. The sciatic nerve is allowed to retract. The incision is now irrigated with copious amounts of saline and then closed with 0 Vicryl, deep layer with 0 Vicryl, fascia to fascia, superficial layer and skin was closed with interrupted 3-0 Prolene. Dressing is applied. The patient tolerated the procedure well. Chantale RICK/FARIDA /3:56 PM /11:20 PM
[2017-01-13] VITALS: BP 152/67; PULSE 84; RESP 18; TEMP 98.5; O2SAT 98
[2017-01-13] MEDS: oxyCODONE/ACETAMINOPHEN 5 MG/325 MG TAB PO PRN
[2017-01-13] MEDS ORDERED: oxyCODONE/ACETAMINOPHEN 5 MG/325 MG TAB PO PRN (01:00)
[2017-01-13] MEDS: CEFTOLOZANE-TAZOBACTAM INJ 1,500 MG in SODIUM CHLORIDE 0.9% INJ 100 ML IV SCH ×3 (01:04→18:00)
[2017-01-13] MEDS: MORPHINE SULFATE 4 MG/ML INJ IV PRN ×9 (01:04→22:00)
[2017-01-13] MEDS: VANCOMYCIN INJ 1,000 MG in SODIUM CHLOR 0.9% 250 ML INJ 250 ML IV SCH ×3 (03:06→19:18)
[2017-01-13 04:00] VITALS: BP 112/60; PULSE 79; RESP 20; TEMP 98.1; O2SAT 99
[2017-01-13] MEDS: hydrALAZINE HCL 25 MG TAB PO SCH ×3 (05:42→21:03)
[2017-01-13] MEDS: GABAPENTIN 300 MG CAP PO SCH (05:42)
[2017-01-13] MEDS: HEPARIN SODIUM - SQ 10,000 UNITS/ML VIAL SQ SCH ×3 (05:42→21:05)
[2017-01-13 08:00] VITALS: BP 119/65; PULSE 77; PULSE 80; RESP 20; TEMP 98.4; O2SAT 99
[2017-01-13] MEDS: AMIODARONE 200 MG TAB PO SCH (08:21)
[2017-01-13] MEDS: ONDANSETRON ODT 4 MG TAB PO PRN (08:22)
[2017-01-13] MEDS: LISINOPRIL 5 MG TAB PO SCH ×2 (08:22→21:03)
[2017-01-13] MEDS: CARVEDILOL 6.25 MG TAB PO SCH ×2 (08:22→21:04)
[2017-01-13] MEDS: LACTOBACILLUS ACIDOPHILUS TAB PO SCH ×3 (08:22→17:58)
[2017-01-13] MEDS: metFORMIN HCL 500 MG TAB PO SCH ×2 (08:22→17:58)
[2017-01-13] MEDS: NYSTATIN 100,000 U/GM OINT 15 GM TUBE TOPICAL SCH ×2 (08:23→21:00)
[2017-01-13] MEDS: ASPIRIN 81 MG CHEW TAB PO SCH (08:24)
[2017-01-13] MEDS: COLLAGENASE OINT 30 GM TUBE TOPICAL SCH (09:00)
[2017-01-13 12:00] VITALS: BP 117/55; PULSE 78; RESP 18; TEMP 98.2; O2SAT 98
[2017-01-13] MEDS: DULoxetine HCl DR 60 MG CAP PO SCH (13:07)
--- NOTE | 2017-01-13 13:29 | HHI.PR ---
Subjective Remarks Patient requests increase in pain treatments. She had a lmgny-hhc-swgw amputation of the right leg yesterday. She also requests that her Avendano catheter be removed. She cites that she has had good urination without the Avendano catheter and no longer has issues with obstruction. Objective Vital Signs Date Time Temp Pulse Resp B/P Pulse Ox O2 Delivery O2 Flow Rate FiO2 01/13/17 08:00 98.4 80 20 119/65 99 01/13/17 04:00 98.1 79 20 112/60 99 01/13/17 04:00 Room Air 01/13/17 00:00 98.5 84 18 152/67 98 01/13/17 00:00 Room Air 01/12/17 20:00 88 01/12/17 20:00 Room Air 01/12/17 20:00 97.5 89 20 101/54 96 01/12/17 17:45 97.9 82 18 123/63 94 01/12/17 17:00 98.6 74 12 151/72 100 Nasal Cannula 2 01/12/17 16:45 73 14 143/66 99 01/12/17 16:30 73 20 130/58 98 01/12/17 16:15 71 17 130/59 100 01/12/17 16:00 69 16 129/58 100 Nasal Cannula 2 01/12/17 15:45 98.2 71 17 115/57 95 Nasal Cannula 2 I/O 01/12/17 01/12/17 01/12/17 01/13/17 01/13/17 01/13/17 07:00 15:00 23:00 07:00 15:00 23:00 Intake Total 545 ml 0 ml 640 ml 240 ml Output Total 800 ml 950 ml 950 ml 350 ml Balance -255 ml -950 ml -310 ml -110 ml Intake Oral 240 ml 0 ml 240 ml 240 ml IV Total 305 ml 100 ml Other 300 ml Output Urine Total 800 ml 950 ml 150 ml 350 ml Estimated Blood Loss 100 ml Other 700 ml # Bowel Movements 0 0 0 0 Result Diagram: 01/11/1762301/11/17623 Imaging Last Impressions Knee X-Ray 01/03/17 3678 Signed Impressions: Service Date/Time: Tuesday, January 03, 2017 14:39 - CONCLUSION: 1 cm osteochondral abnormality of the central medial femoral condyle. Mild medial compartment narrowing. Richar Rios MD Ankle X-Ray 01/03/17 1407 Signed Impressions: Service Date/Time: Tuesday, January 03, 2017 14:39 - CONCLUSION: No significant interval change. Distal fibula shaft fracture again identified with some bone callus. No new fracture identified. Richar Rios MD Renal Ultrasound 12/14/16 0000 Signed Impressions: Service Date/Time: Wednesday, December 14, 2016 16:15 - CONCLUSION: Moderate bilateral hydronephrosis and significantly distended urinary bladder with debris. The findings raise the possibility of bladder outlet obstruction. Clinical correlation is recommended. Gage Lubin MD Objective Remarks GENERAL: NAD, A&Ox3 SKIN: Warm and dry. HEAD: Normocephalic. EYES: No scleral icterus. No injection or drainage. NECK: Supple, trachea midline. No JVD or lymphadenopathy. CARDIOVASCULAR: Regular rate and rhythm without murmurs, gallops, or rubs. RESPIRATORY: Breath sounds equal bilaterally. No accessory muscle use. GASTROINTESTINAL: Abdomen soft, non-tender, nondistended. MUSCULOSKELETAL: No cyanosis, or edema. Right AKA BACK: Nontender without obvious deformity. No CVA tenderness. Medications and IVs Administered Medications Medications (Trade) Dose Ordered Sig/Seng Route PRN Reason Start Time Stop Time Status Last Admin Dose Admin Amiodarone HCl (Cordarone) 200 mg DAILY PO 12/14/16 09:00 01/13/17 08:21 Aspirin (Aspirin Chew) 81 mg DAILY PO 12/14/16 09:00 01/13/17 08:24 Atorvastatin Calcium (Lipitor) 40 mg HS PO 12/13/16 21:00 01/12/17 20:53 Montelukast Sodium (Singulair) 10 mg HS PO 12/13/16 21:00 01/12/17 20:53 Duloxetine HCl (Cymbalta Dr) 60 mg DAILY PO 12/15/16 09:00 01/13/17 13:07 Collagenase (Santyl Oint) 1 applic DAILY TOPICAL 12/17/16 09:00 01/10/17 09:00 Hydralazine HCl (Apresoline) 25 mg Q8HR PO 12/17/16 18:00 01/13/17 05:42 Ondansetron HCl (Zofran Odt) 4 mg Q6H PRN PO NAUSEA OR VOMITING 12/25/16 11:00 01/13/17 08:22 Nystatin (Mycostatin Oint) 1 applic Q12HR TOPICAL 12/25/16 16:00 01/13/17 08:23 Temazepam (Restoril) 7.5 mg HS PRN PO Insomnia 12/29/16 14:00 01/11/17 20:56 Gabapentin (Neurontin) 300 mg Q24H PO 01/02/17 06:00 01/13/17 05:42 Heparin Sodium (Porcine) (Heparin Inj) 5,000 units Q8HR SQ 01/01/17 14:00 01/10/17 14:34 Lactobacillus Acidophilus (Lactinex) 1 tab TID PO 01/02/17 09:00 01/13/17 08:22 Metformin HCl 500 mg 500 mg BIDPC PO 01/04/17 18:00 01/13/17 08:22 Ceftolozane/ Tazobactam 1500 mg/Sodium Chloride 100 ml @ 100 mls/hr Q8H IV 01/06/17 18:00 01/13/17 13:04 Vancomycin HCl/ Sodium Chloride (Vancomycin Inj/ NS 250 ml Inj) 250 ml @ 250 mls/hr Q12H IV 01/06/17 16:00 01/13/17 03:06 Carvedilol (Coreg) 6.25 mg Q12HR PO 01/07/17 21:00 01/13/17 08:22 Lisinopril (Prinivil) 5 mg BID PO 01/09/17 21:00 01/13/17 08:22 Morphine Sulfate (Morphine Inj) 2 mg Q4HR PRN IV PUSH BREAKTHROUGH PAIN 01/12/17 20:00 01/12/17 20:53 A/P Problem List: (1) DM (diabetes mellitus) ICD Code: E11.9 (2) Acute kidney injury ICD Code: N17.9 (3) HTN (hypertension) ICD Code: I10 (4) CAD (coronary artery disease) ICD Code: I25.10 (5) CHF (congestive heart failure) ICD Code: I50.9 Assessment and Plan Assessment and Plan 61 years old female admitted with weakness, ALFREDO on CKD and CHF Exacerbation. Urine culture shows resistance to Levaquin. Treatment change to nitrofurantoin. Sepsis is resolved. Leukocytosis is improving. Status post right dfwld-mag-duxy habitation This is secondary to injury with possible mellitus of a right below the knee amputation stump. When necessary Percocet When necessary morphine IV for breakthrough Orthopedic surgery following CKD Follow renal function CHF Exacerbation on CHF CAD Monitor diuresis Clinically stabilized No chest pain HTN Losartan has improved her status Follow BP Adjust if needed 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 Diabetic Neuropathy Gabapentin PRN Percocet DM2 May have been reactive Blood sugars well controlled Return to regular diet follow blood sugars PAD Hyperlipidemia Hx of Breast Cancer SLE Asthma Stable No change to baseline treatments Follow clinically DVT prophylaxis heparin and SCD Jalen Morrison MD Jan 13, 2017 13:29
[2017-01-13 16:00] VITALS: BP 129/62; PULSE 79; RESP 20; TEMP 98.7; O2SAT 100
[2017-01-13] MEDS: oxyCODONE/ACETAMINOPHEN 7.5 MG/325 MG TAB PO PRN ×2 (17:43→21:04)
--- NOTE | 2017-01-13 19:05 | PD.CAR.PN ---
CVT Progress Note Subjective/Hospital Course: Patient known to me from previous encounters Referral received Full consult to deandre Cooper 01/06/17 Full consult has been dictated for details please refer to it. The stump has healed well however there is a penetrating wound and posterior aspect of the stump prison up the soleus muscle way away from any incisions. This is definitely NOT a pressure sore but clearly a penetrating injury. Patient states that she fell out of bed and impaled herself on the handlebar of her wheelchair in this is exactly how this looks like Wound is penetrating posteriorly and going close to the bone He has grown out MRSA and multidrug resistance organisms as well as Pseudomonas At this point we will continue the dressings and washings and allow it to clean itself out for a few days and then in a week or so I'll take the patient to the operating room at [place] to debride the stump and place a wound VAC For that procedure patient does NOT need to be transferred to the [facility] hospital 01/10/17 Patient with a deep wound to the right calf and now reaching all the way to the bone Since beginning of the week this has not improved and imjfqs-to-knet is gotten worse with more drainage At this point I do not see any purpose in opening these placing wound vacs in such because this is all the way to the bone and osteomyelitis by definition Patient will need above-knee amputation and she agrees to it I have spoken Mr Wayne GERARDO, and patient will be transferred to the [facility] hospital for above-knee amputation Second opinion will be by Dr. Salazar tomorrow 01/11/17 Patient has a large penetrating wound in the back of her calf is draining and and by palpation this goes all the way to the tibia which by definition is now exposed to osteomyelitis Patient is now bedridden and can barely take care of herself Debriding this placing a wound VAC and trying to close it in the future will lead to further prolongation of her hospital stay and debilitation The best option at this point is above-knee amputation In order to obtain second opinion we will have to postpone surgery until tomorrow 01/13/17 St post AKA Incision dry. I try to keep original dressing for at least 48h,but it fell off. Redressed Continue care Objective: Vital Signs Date Time Temp Pulse Resp B/P Pulse Ox O2 Delivery O2 Flow Rate FiO2 01/13/17 16:00 98.7 79 20 129/62 100 01/13/17 12:00 98.2 78 18 117/55 98 01/13/17 08:00 98.4 80 20 119/65 99 01/13/17 04:00 98.1 79 20 112/60 99 01/13/17 04:00 Room Air 01/13/17 00:00 98.5 84 18 152/67 98 01/13/17 00:00 Room Air 01/12/17 20:00 88 01/12/17 20:00 Room Air 01/12/17 20:00 97.5 89 20 101/54 96 Result Diagram: 01/11/17 0624 01/11/17 0624 Chantale Wakefield MD Jan 13, 2017 19:05
[2017-01-13 20:00] VITALS: BP 125/60; PULSE 78; PULSE 80; RESP 16; TEMP 98.1; O2SAT 97
[2017-01-13] MEDS: MONTELUKAST SODIUM 10 MG TAB PO SCH (21:03)
[2017-01-13] MEDS: TEMAZEPAM 7.5 MG CAP PO PRN (21:03)
[2017-01-13] MEDS: ATORVASTATIN 40 MG TAB PO SCH (21:04)
[2017-01-14] VITALS (7 sets, daily range): BP systolic 96–116; BP diastolic 50–62; PULSE 78–88; RESP 16–20; TEMP 98.3–98.7; O2SAT 95–98
[2017-01-14] MEDS: MORPHINE SULFATE 4 MG/ML INJ IV PRN ×9 (00:01→22:04)
[2017-01-14] MEDS: oxyCODONE/ACETAMINOPHEN 7.5 MG/325 MG TAB PO PRN ×6 (01:00→23:04)
[2017-01-14] MEDS: CEFTOLOZANE-TAZOBACTAM INJ 1,500 MG in SODIUM CHLORIDE 0.9% INJ 100 ML IV SCH ×2 (01:56→08:20)
[2017-01-14] MEDS: VANCOMYCIN INJ 1,000 MG in SODIUM CHLOR 0.9% 250 ML INJ 250 ML IV SCH (04:05)
[2017-01-14] MEDS: GABAPENTIN 300 MG CAP PO SCH (05:51)
[2017-01-14] MEDS: hydrALAZINE HCL 25 MG TAB PO SCH ×3 (05:51→22:04)
[2017-01-14] MEDS: HEPARIN SODIUM - SQ 10,000 UNITS/ML VIAL SQ SCH ×3 (05:51→22:00)
[2017-01-14] MEDS: LACTOBACILLUS ACIDOPHILUS TAB PO SCH ×3 (08:20→18:45)
[2017-01-14] MEDS: metFORMIN HCL 500 MG TAB PO SCH ×2 (08:20→16:39)
[2017-01-14] MEDS: ASPIRIN 81 MG CHEW TAB PO SCH (08:20)
[2017-01-14] MEDS: AMIODARONE 200 MG TAB PO SCH (08:20)
[2017-01-14] MEDS: LISINOPRIL 5 MG TAB PO SCH ×2 (08:20→20:01)
[2017-01-14] MEDS: CARVEDILOL 6.25 MG TAB PO SCH ×2 (08:20→20:01)
[2017-01-14] MEDS: COLLAGENASE OINT 30 GM TUBE TOPICAL SCH (08:20)
[2017-01-14] MEDS: NYSTATIN 100,000 U/GM OINT 15 GM TUBE TOPICAL SCH ×2 (08:21→20:03)
--- NOTE | 2017-01-14 09:00 | HHI.PR ---
Subjective Remarks Patient reports voiding after catheter removed. Pain better controlled with pain medication adjustment today. No new complaints today. Blood sugar stable after return to regular diet rather than low sugar diet. Objective Vital Signs Date Time Temp Pulse Resp B/P Pulse Ox O2 Delivery O2 Flow Rate FiO2 01/14/17 04:00 98.4 81 18 104/62 96 01/14/17 04:00 Room Air 01/14/17 00:00 Room Air 01/14/17 00:00 98.3 78 16 102/51 96 01/13/17 20:00 98.1 80 16 125/60 97 01/13/17 20:00 78 01/13/17 20:00 Room Air 01/13/17 16:00 98.7 79 20 129/62 100 01/13/17 14:51 18 01/13/17 12:00 98.2 78 18 117/55 98 I/O 01/13/17 01/13/17 01/13/17 01/14/17 01/14/17 01/14/17 07:00 15:00 23:00 07:00 15:00 23:00 Intake Total 240 ml 720 ml Output Total 350 ml 1200 ml 250 ml 300 ml Balance -110 ml -480 ml -250 ml -300 ml Intake Oral 240 ml 720 ml Output Urine Total 350 ml 1200 ml 250 ml 300 ml Bladder Scan Volume Amount 538 ml # Bowel Movements 0 1 Result Diagram: 01/11/1762301/11/17623 Objective Remarks GENERAL: NAD, A&Ox3 SKIN: Warm and dry. HEAD: Normocephalic. EYES: No scleral icterus. No injection or drainage. NECK: Supple, trachea midline. No JVD or lymphadenopathy. CARDIOVASCULAR: Regular rate and rhythm without murmurs, gallops, or rubs. RESPIRATORY: Breath sounds equal bilaterally. No accessory muscle use. GASTROINTESTINAL: Abdomen soft, non-tender, nondistended. MUSCULOSKELETAL: No cyanosis, or edema. Right AKA BACK: Nontender without obvious deformity. No CVA tenderness. A/P Problem List: (1) DM (diabetes mellitus) ICD Code: E11.9 (2) Acute kidney injury ICD Code: N17.9 (3) HTN (hypertension) ICD Code: I10 (4) CAD (coronary artery disease) ICD Code: I25.10 (5) CHF (congestive heart failure) ICD Code: I50.9 Assessment and Plan Assessment and Plan 61 years old female admitted with weakness, ALFREDO on CKD and CHF Exacerbation. Presently status post right goujd-qev-udcv amputation secondary to infection and also mellitus of right byovn-qix-gfyz amputation stump. She was recovering well. Blood sugars controlled. Catheter removed without urinary obstruction. Pain control present. Status post right zyzfp-yia-zzfq habitation This is secondary to injury with possible mellitus of a right below the knee amputation stump. When necessary Percocet When necessary morphine IV for breakthrough Orthopedic surgery following Physical therapy CKD Follow renal function CHF Exacerbation on CHF CAD Monitor diuresis Clinically stabilized No chest pain HTN Losartan has improved her status Follow BP Adjust if needed 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 Diabetic Neuropathy Gabapentin PRN Percocet DM2 May have been reactive Blood sugars well controlled Return to regular diet follow blood sugars PAD Hyperlipidemia Hx of Breast Cancer SLE Asthma Stable No change to baseline treatments Follow clinically DVT prophylaxis heparin and SCD Jalen Morrison MD Jan 14, 2017 09:00
[2017-01-14] MEDS: DULoxetine HCl DR 60 MG CAP PO SCH (10:08)
--- NOTE | 2017-01-14 16:04 | HHI.IDPN ---
Note Infectious Disease Note ID COVERAGE: FOLLOW UP. Notes reviewed. Patient seen and examined. Feels well. Patient underwent R AKA. 01/12. No complaints. Fell and dehisced surgical wound of r. BKA stump and developed resistant wound infection. Antibiotics TEFLARO Vancomycin. Lines Peripheral Past Medical History Diabetes RT Leg BKA SLE Breast Cancer CAD Allergies: Coded Allergies: Bactrim (Verified Allergy, Severe, Shortness of Breath, 12/13/16) Iodine (Verified Allergy, Severe, THROAT SWELLS, 12/13/16) pt states does not have a allergy to Iodine 01/11/16 JF Penicillin (Verified Allergy, Severe, STOPPED BREATHING, 12/13/16) Shellfish (Verified Allergy, Severe, THROAT SWELLS, 12/13/16) *MDRO Multi-Drug Resistant Organism (Verified Adverse Reaction, Unknown, ) 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, wound - 01/04/17 MRSA (urine)-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 on 12/21/16 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 Objective Vital Signs Date Time Temp Pulse Resp B/P Pulse Ox O2 Delivery O2 Flow Rate FiO2 01/14/17 12:00 98.7 83 20 116/50 98 01/14/17 08:31 Room Air 01/14/17 08:31 79 01/14/17 08:00 98.6 81 20 111/54 96 01/14/17 04:00 98.4 81 18 104/62 96 01/14/17 04:00 Room Air 01/14/17 00:00 Room Air 01/14/17 00:00 98.3 78 16 102/51 96 01/13/17 20:00 98.1 80 16 125/60 97 01/13/17 20:00 78 01/13/17 20:00 Room Air 01/13/17 01/13/17 01/14/17 15:00 23:00 07:00 Intake Total 720 ml Output Total 1200 ml 250 ml 300 ml Balance -480 ml -250 ml -300 ml Intake Oral 720 ml Output Urine Total 1200 ml 250 ml 300 ml Bladder Scan Volume Amount 538 ml # Bowel Movements 1 Vital Signs Date Time Temp Pulse Resp B/P Pulse Ox O2 Delivery O2 Flow Rate FiO2 01/07/17 08:00 98.2 76 19 163/79 100 01/06/17 20:00 96.5 91 20 162/72 99 Microbiology Date/Time Procedure Status Source Growth 01/04/17 14:30 Gram Stain - Final Resulted Wound Leg 01/04/17 14:30 Wound Culture - Preliminary Resulted Pseudomonas Aeruginosa S. Aureus Mrsa GENERAL: Patient is in no acute distress. HEENT: EOMI, No icterus. NECK: Supple. LUNGS: Clear breath sounds. CARDIAC: Regular rate and rhythm ABDOMEN: Soft, non tender. EXTREMITIES: R AKA stump post op clean. SKIN: No rash. NEURO: Alert and oriented. Assessment & Plan (4) Wound infection at dehisced amputation of right lower extremity below knee. MDR pseudomonas and MRSA. (5) UTI (urinary tract infection) - resolved. WITH MDR PAE AND MRSA RECOMMEND: Stop Teflaro Stop Vancomycin. No further antibiotics. She can be discharged from ID standpoint. I will sign off now. Ike Briceno MD Jan 14, 2017 16:04
[2017-01-14] MEDS: ATORVASTATIN 40 MG TAB PO SCH (20:01)
[2017-01-14] MEDS: MONTELUKAST SODIUM 10 MG TAB PO SCH (20:01)
[2017-01-14] MEDS: TEMAZEPAM 7.5 MG CAP PO PRN (20:02)
[2017-01-15] VITALS (7 sets, daily range): BP systolic 90–121; BP diastolic 46–54; PULSE 75–87; RESP 18–20; TEMP 98–98.5; O2SAT 95–100
[2017-01-15] MEDS: MORPHINE SULFATE 4 MG/ML INJ IV PRN ×8 (00:17→20:59)
[2017-01-15] MEDS: GABAPENTIN 300 MG CAP PO SCH (05:56)
[2017-01-15] MEDS: oxyCODONE/ACETAMINOPHEN 7.5 MG/325 MG TAB PO PRN (05:56)
[2017-01-15] MEDS: hydrALAZINE HCL 25 MG TAB PO SCH ×3 (05:56→20:27)
[2017-01-15] MEDS: HEPARIN SODIUM - SQ 10,000 UNITS/ML VIAL SQ SCH ×3 (05:57→20:27)
[2017-01-15] MEDS: COLLAGENASE OINT 30 GM TUBE TOPICAL SCH (09:00)
[2017-01-15] MEDS: NYSTATIN 100,000 U/GM OINT 15 GM TUBE TOPICAL SCH ×2 (09:00→20:26)
[2017-01-15] MEDS: LISINOPRIL 5 MG TAB PO SCH ×2 (09:00→20:26)
[2017-01-15] MEDS: CARVEDILOL 6.25 MG TAB PO SCH ×2 (09:00→20:26)
[2017-01-15] MEDS: AMIODARONE 200 MG TAB PO SCH (09:06)
[2017-01-15] MEDS: DULoxetine HCl DR 60 MG CAP PO SCH (09:06)
[2017-01-15] MEDS: metFORMIN HCL 500 MG TAB PO SCH ×2 (09:06→17:10)
[2017-01-15] MEDS: LACTOBACILLUS ACIDOPHILUS TAB PO SCH ×3 (09:06→17:10)
[2017-01-15] MEDS: ASPIRIN 81 MG CHEW TAB PO SCH (09:06)
--- NOTE | 2017-01-15 09:53 | HHI.PR ---
Subjective Remarks No new complaints today. Working with PT. Her goal is to get home. Objective Vital Signs Date Time Temp Pulse Resp B/P Pulse Ox O2 Delivery O2 Flow Rate FiO2 01/15/17 08:00 98.4 83 20 90/50 97 01/15/17 04:00 98.4 87 18 99/49 96 01/15/17 04:00 Room Air 01/15/17 00:00 98.5 85 20 96/46 95 01/15/17 00:00 Room Air 01/14/17 20:00 98.5 87 20 99/50 95 01/14/17 20:00 Room Air 01/14/17 20:00 88 01/14/17 16:00 98.5 87 20 96/53 95 01/14/17 12:00 98.7 83 20 116/50 98 I/O 01/14/17 01/14/17 01/14/17 01/15/17 01/15/17 01/15/17 06:59 14:59 22:59 06:59 14:59 22:59 Intake Total 720 ml Output Total 300 ml 525 ml 300 ml 300 ml Balance -300 ml 195 ml -300 ml -300 ml Intake Oral 720 ml Output Urine Total 300 ml 525 ml 300 ml 300 ml # Bowel Movements 0 0 Result Diagram: 01/11/1762301/11/17623 Objective Remarks GENERAL: NAD, A&Ox3 SKIN: Warm and dry. HEAD: Normocephalic. EYES: No scleral icterus. No injection or drainage. NECK: Supple, trachea midline. No JVD or lymphadenopathy. CARDIOVASCULAR: Regular rate and rhythm without murmurs, gallops, or rubs. RESPIRATORY: Breath sounds equal bilaterally. No accessory muscle use. GASTROINTESTINAL: Abdomen soft, non-tender, nondistended. MUSCULOSKELETAL: No cyanosis, or edema. Right AKA BACK: Nontender without obvious deformity. No CVA tenderness. A/P Problem List: (1) DM (diabetes mellitus) ICD Code: E11.9 (2) Acute kidney injury ICD Code: N17.9 (3) HTN (hypertension) ICD Code: I10 (4) CAD (coronary artery disease) ICD Code: I25.10 (5) CHF (congestive heart failure) ICD Code: I50.9 Assessment and Plan Assessment and Plan 61 years old female admitted with weakness, ALFREDO on CKD and CHF Exacerbation. Presently status post right hgfgr-rmr-owni amputation secondary to infection and also mellitus of right lhteo-jtl-lwfq amputation stump. She is recovering well. No new complaints today. Continue physical therapy. Pain medications adjusted. Status post right uxkxg-onn-kdbp habitation This is secondary to injury with possible mellitus of a right below the knee amputation stump. When necessary Percocet When necessary morphine IV for breakthrough Orthopedic surgery following Physical therapy CKD Follow renal function CHF Exacerbation on CHF CAD Monitor diuresis Clinically stabilized No chest pain HTN Losartan has improved her status Follow BP Adjust if needed 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 Diabetic Neuropathy Gabapentin PRN Percocet DM2 May have been reactive Blood sugars well controlled Return to regular diet follow blood sugars PAD Hyperlipidemia Hx of Breast Cancer SLE Asthma Stable No change to baseline treatments Follow clinically DVT prophylaxis heparin and SCD Jalen Morrison MD Jan 15, 2017 09:53
[2017-01-15] MEDS: oxyCODONE/ACETAMINOPHEN 10 MG/325 MG TAB PO PRN ×4 (11:01→23:03)
--- NOTE | 2017-01-15 14:45 | PD.CAR.PN ---
CVT Progress Note Subjective/Hospital Course: Patient known to me from previous encounters Referral received Full consult to deandre Cooper 01/06/17 Full consult has been dictated for details please refer to it. The stump has healed well however there is a penetrating wound and posterior aspect of the stump residential up the soleus muscle way away from any incisions. This is definitely NOT a pressure sore but clearly a penetrating injury. Patient states that she fell out of bed and impaled herself on the handlebar of her wheelchair in this is exactly how this looks like Wound is penetrating posteriorly and going close to the bone He has grown out MRSA and multidrug resistance organisms as well as Pseudomonas At this point we will continue the dressings and washings and allow it to clean itself out for a few days and then in a week or so I'll take the patient to the operating room at [place] to debride the stump and place a wound VAC For that procedure patient does NOT need to be transferred to the [facility] hospital 01/10/17 Patient with a deep wound to the right calf and now reaching all the way to the bone Since beginning of the week this has not improved and qmbgfc-wj-kisy is gotten worse with more drainage At this point I do not see any purpose in opening these placing wound vacs in such because this is all the way to the bone and osteomyelitis by definition Patient will need above-knee amputation and she agrees to it I have spoken Mr Wayne GERARDO, and patient will be transferred to the [facility] hospital for above-knee amputation Second opinion will be by Dr. Salazar tomorrow 01/11/17 Patient has a large penetrating wound in the back of her calf is draining and and by palpation this goes all the way to the tibia which by definition is now exposed to osteomyelitis Patient is now bedridden and can barely take care of herself Debriding this placing a wound VAC and trying to close it in the future will lead to further prolongation of her hospital stay and debilitation The best option at this point is above-knee amputation In order to obtain second opinion we will have to postpone surgery until tomorrow 01/13/17 St post AKA Incision dry. I try to keep original dressing for at least 48h,but it fell off. Redressed Continue care 01/15/17 Incision clean and dry Dressing change daily Patient can be discharged from my point any time to have stitches removed in about 2-1/2 weeks Objective: Vital Signs Date Time Temp Pulse Resp B/P Pulse Ox O2 Delivery O2 Flow Rate FiO2 01/15/17 12:00 98.0 78 20 98/49 95 01/15/17 08:00 Room Air 01/15/17 08:00 98.4 83 20 90/50 97 01/15/17 04:00 98.4 87 18 99/49 96 01/15/17 04:00 Room Air 01/15/17 00:00 98.5 85 20 96/46 95 01/15/17 00:00 Room Air 01/14/17 20:00 98.5 87 20 99/50 95 01/14/17 20:00 Room Air 01/14/17 20:00 88 01/14/17 16:00 98.5 87 20 96/53 95 Result Diagram: 01/11/1724 01/11/1724 Chantale Wakefield MD Jan 15, 2017 2:45 pm
[2017-01-15] MEDS: MONTELUKAST SODIUM 10 MG TAB PO SCH (20:26)
[2017-01-15] MEDS: ATORVASTATIN 40 MG TAB PO SCH (20:26)
[2017-01-15] MEDS: TEMAZEPAM 7.5 MG CAP PO PRN (20:59)
[2017-01-16] VITALS (7 sets, daily range): BP systolic 113–125; BP diastolic 51–59; PULSE 78–85; RESP 16–20; TEMP 98–98.6; O2SAT 93–100
[2017-01-16] MEDS: MORPHINE SULFATE 4 MG/ML INJ IV PRN ×6 (01:04→21:51)
[2017-01-16] MEDS: oxyCODONE/ACETAMINOPHEN 10 MG/325 MG TAB PO PRN ×6 (02:59→23:51)
[2017-01-16] MEDS: HEPARIN SODIUM - SQ 10,000 UNITS/ML VIAL SQ SCH ×3 (04:23→21:10)
[2017-01-16] MEDS: GABAPENTIN 300 MG CAP PO SCH (05:04)
[2017-01-16] MEDS: hydrALAZINE HCL 25 MG TAB PO SCH ×3 (05:11→20:03)
[2017-01-16] MEDS: DULoxetine HCl DR 60 MG CAP PO SCH (09:02)
[2017-01-16] MEDS: metFORMIN HCL 500 MG TAB PO SCH ×2 (09:02→17:56)
[2017-01-16] MEDS: CARVEDILOL 6.25 MG TAB PO SCH ×2 (09:02→20:02)
[2017-01-16] MEDS: LACTOBACILLUS ACIDOPHILUS TAB PO SCH ×3 (09:02→17:56)
[2017-01-16] MEDS: AMIODARONE 200 MG TAB PO SCH (09:03)
[2017-01-16] MEDS: LISINOPRIL 5 MG TAB PO SCH ×2 (09:03→20:02)
[2017-01-16] MEDS: ASPIRIN 81 MG CHEW TAB PO SCH (09:03)
[2017-01-16] MEDS: NYSTATIN 100,000 U/GM OINT 15 GM TUBE TOPICAL SCH ×2 (09:06→21:00)
[2017-01-16] MEDS: COLLAGENASE OINT 30 GM TUBE TOPICAL SCH (09:07)
--- NOTE | 2017-01-16 12:53 | HHI.PR ---
Subjective Remarks We discussed a plan to transition to by mouth treatments for pain medicines tomorrow. Patient is hoping to discharge in 2-3 days. She says she is not yet able to independently move to a wheelchair and bedside commode yet. This is her goal prior to returning to home. Objective Vital Signs Date Time Temp Pulse Resp B/P Pulse Ox O2 Delivery O2 Flow Rate FiO2 01/16/17 12:00 98.0 78 18 124/58 01/16/17 08:00 98.2 81 18 118/58 97 01/16/17 08:00 98 Room Air 01/16/17 05:08 98.6 79 18 113/51 97 01/16/17 00:00 98.6 79 18 113/51 97 01/15/17 21:01 Room Air 01/15/17 20:24 75 01/15/17 20:00 98.3 77 18 121/54 100 01/15/17 16:00 Room Air 01/15/17 16:00 98.3 81 20 115/54 97 I/O 01/15/17 01/15/17 01/15/17 01/16/17 01/16/17 01/16/17 07:00 15:00 23:00 07:00 15:00 23:00 Intake Total 480 ml 608 ml 6 ml Output Total 300 ml 450 ml 800 ml 150 ml Balance -300 ml 30 ml -192 ml 6 ml -150 ml Intake Oral 480 ml 600 ml IV Total 8 ml 6 ml Output Urine Total 300 ml 450 ml 800 ml 150 ml # Voids 1 # Bowel Movements 0 0 Objective Remarks GENERAL: NAD, A&Ox3 SKIN: Warm and dry. HEAD: Normocephalic. EYES: No scleral icterus. No injection or drainage. NECK: Supple, trachea midline. No JVD or lymphadenopathy. CARDIOVASCULAR: Regular rate and rhythm without murmurs, gallops, or rubs. RESPIRATORY: Breath sounds equal bilaterally. No accessory muscle use. GASTROINTESTINAL: Abdomen soft, non-tender, nondistended. MUSCULOSKELETAL: No cyanosis, or edema. Right AKA BACK: Nontender without obvious deformity. No CVA tenderness. A/P Problem List: (1) DM (diabetes mellitus) ICD Code: E11.9 (2) Acute kidney injury ICD Code: N17.9 (3) HTN (hypertension) ICD Code: I10 (4) CAD (coronary artery disease) ICD Code: I25.10 (5) CHF (congestive heart failure) ICD Code: I50.9 Assessment and Plan Assessment and Plan 61 years old female admitted with weakness, ALFREDO on CKD and CHF Exacerbation. Presently status post right ragbc-pnt-fres amputation secondary to infection and also mellitus of right umigk-xox-ubaa amputation stump. She is recovering well. No new complaints today. Orthopedic surgeon has cleared her in regards to her recent surgery for discharge. Continue physical therapy. Patient is not yet at physical therapy goal. Her goal is to build to move from the bed to the bedside commode and from the bed to wheelchair. Continue PT and wean pain treatments. Status post right fkztt-prs-zdoe habitation This is secondary to injury with possible mellitus of a right below the knee amputation stump. When necessary Percocet When necessary morphine IV for breakthrough Orthopedic surgery following Physical therapy CKD Follow renal function CHF Exacerbation on CHF CAD Monitor diuresis Clinically stabilized No chest pain HTN Losartan has improved her status Follow BP Adjust if needed 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 Diabetic Neuropathy Gabapentin PRN Percocet DM2 May have been reactive Blood sugars well controlled Return to regular diet follow blood sugars PAD Hyperlipidemia Hx of Breast Cancer SLE Asthma Stable No change to baseline treatments Follow clinically DVT prophylaxis heparin and SCD Jalen Morrison MD Jan 16, 2017 12:53 pm
[2017-01-16] MEDS: ATORVASTATIN 40 MG TAB PO SCH (20:03)
[2017-01-16] MEDS: MONTELUKAST SODIUM 10 MG TAB PO SCH (20:03)
[2017-01-16] MEDS: ONDANSETRON ODT 4 MG TAB PO PRN (21:09)
[2017-01-16] MEDS: TEMAZEPAM 7.5 MG CAP PO PRN (21:09)
[2017-01-17] VITALS: BP 145/64; PULSE 90; RESP 20; TEMP 98.2; O2SAT 99
[2017-01-17] MEDS: MORPHINE SULFATE 4 MG/ML INJ IV PRN ×4 (01:51→15:00)
[2017-01-17 04:00] VITALS: BP 129/60; PULSE 80; RESP 20; TEMP 97.5; O2SAT 98
[2017-01-17] MEDS: oxyCODONE/ACETAMINOPHEN 10 MG/325 MG TAB PO PRN ×2 (04:05→08:05)
[2017-01-17] MEDS: GABAPENTIN 300 MG CAP PO SCH (05:42)
[2017-01-17] MEDS: hydrALAZINE HCL 25 MG TAB PO SCH ×3 (05:42→20:27)
[2017-01-17] MEDS: HEPARIN SODIUM - SQ 10,000 UNITS/ML VIAL SQ SCH ×3 (05:43→20:29)
[2017-01-17 08:00] VITALS: BP 112/57; PULSE 80; RESP 18; TEMP 97.9; O2SAT 99
[2017-01-17] MEDS: ASPIRIN 81 MG CHEW TAB PO SCH (08:03)
[2017-01-17] MEDS: CARVEDILOL 6.25 MG TAB PO SCH ×2 (08:04→20:26)
[2017-01-17] MEDS: DULoxetine HCl DR 60 MG CAP PO SCH (08:04)
[2017-01-17] MEDS: AMIODARONE 200 MG TAB PO SCH (08:04)
[2017-01-17] MEDS: LACTOBACILLUS ACIDOPHILUS TAB PO SCH ×3 (08:05→17:00)
[2017-01-17] MEDS: LISINOPRIL 5 MG TAB PO SCH ×2 (08:05→20:27)
[2017-01-17] MEDS: metFORMIN HCL 500 MG TAB PO SCH ×2 (08:05→16:59)
[2017-01-17] MEDS: NYSTATIN 100,000 U/GM OINT 15 GM TUBE TOPICAL SCH ×2 (08:07→20:31)
[2017-01-17] MEDS: COLLAGENASE OINT 30 GM TUBE TOPICAL SCH (08:07)
[2017-01-17] MEDS: MORPHINE SULFATE 30 MG CONTROLLED RELEASE TAB PO SCH (10:10)
[2017-01-17 12:00] VITALS: BP 104/51; PULSE 71; RESP 18; TEMP 98.2; O2SAT 95
--- NOTE | 2017-01-17 14:36 | HHI.PR ---
Subjective Remarks Patient intends to try to discharge to home in about 1-2 days. She is working with physical therapy. No new complaints. Transitioned to by mouth pain treatments and process. Objective Vital Signs Date Time Temp Pulse Resp B/P Pulse Ox O2 Delivery O2 Flow Rate FiO2 01/17/17 12:00 98.2 71 18 104/51 95 01/17/17 08:00 97.9 80 18 112/57 99 01/17/17 04:00 97.5 80 20 129/60 98 01/17/17 00:00 98.2 90 20 145/64 99 01/16/17 20:45 Room Air 01/16/17 20:00 98.4 85 20 125/58 93 01/16/17 19:43 81 01/16/17 16:00 98.1 83 16 124/59 100 I/O 01/16/17 01/16/17 01/16/17 01/17/17 01/17/17 01/17/17 07:00 15:00 23:00 07:00 15:00 23:00 Intake Total 6 ml 720 ml 226 ml 366 ml Output Total 650 ml 350 ml 200 ml Balance 6 ml 70 ml -124 ml 166 ml Intake Oral 720 ml 220 ml 360 ml IV Total 6 ml 6 ml 6 ml Output Urine Total 650 ml 350 ml 200 ml # Bowel Movements 0 0 Objective Remarks GENERAL: NAD, A&Ox3 SKIN: Warm and dry. HEAD: Normocephalic. EYES: No scleral icterus. No injection or drainage. NECK: Supple, trachea midline. No JVD or lymphadenopathy. CARDIOVASCULAR: Regular rate and rhythm without murmurs, gallops, or rubs. RESPIRATORY: Breath sounds equal bilaterally. No accessory muscle use. GASTROINTESTINAL: Abdomen soft, non-tender, nondistended. MUSCULOSKELETAL: No cyanosis, or edema. Right AKA BACK: Nontender without obvious deformity. No CVA tenderness. A/P Problem List: (1) DM (diabetes mellitus) ICD Code: E11.9 (2) Acute kidney injury ICD Code: N17.9 (3) HTN (hypertension) ICD Code: I10 (4) CAD (coronary artery disease) ICD Code: I25.10 (5) CHF (congestive heart failure) ICD Code: I50.9 Assessment and Plan Assessment and Plan 61 years old female admitted with weakness, ALFREDO on CKD and CHF Exacerbation. Presently status post right dxhxx-lta-ybgj amputation secondary to infection and also mellitus of right zytdu-ygh-zyvb amputation stump. IV morphine decrease. Patient transitioned for Percocet to short acting morphine. Long- acting morphine is initiated. Status post right midxo-enp-dzmc habitation This is secondary to injury with possible mellitus of a right below the knee amputation stump. 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
[2017-01-17 16:00] VITALS: BP 94/46; PULSE 72; RESP 20; TEMP 97.9; O2SAT 98
[2017-01-17] MEDS: ONDANSETRON ODT 4 MG TAB PO PRN (16:00)
[2017-01-17] MEDS: MORPHINE SULFATE 15 MG TAB PO PRN ×2 (17:01→21:08)
[2017-01-17 20:00] VITALS: BP 101/49; PULSE 79; PULSE 82; RESP 20; TEMP 97.7; O2SAT 97
[2017-01-17] MEDS: ATORVASTATIN 40 MG TAB PO SCH (20:26)
[2017-01-17] MEDS: MONTELUKAST SODIUM 10 MG TAB PO SCH (20:26)
[2017-01-17] MEDS ORDERED: MORPHINE SULFATE 15 MG CONTROLLED RELEASE TAB PO SCH (21:00)
[2017-01-17] MEDS: TEMAZEPAM 7.5 MG CAP PO PRN (21:07)
[2017-01-18] VITALS: BP 103/50; PULSE 81; RESP 20; TEMP 98.2; O2SAT 96
[2017-01-18] MEDS: MORPHINE SULFATE 4 MG/ML INJ IV PRN ×3 (00:38→10:22)
[2017-01-18] MEDS: MORPHINE SULFATE 15 MG TAB PO PRN ×3 (01:09→12:39)
[2017-01-18 04:00] VITALS: BP 97/54; PULSE 88; RESP 20; TEMP 97.9; O2SAT 100
[2017-01-18] MEDS: GABAPENTIN 300 MG CAP PO SCH (05:58)
[2017-01-18] MEDS: HEPARIN SODIUM - SQ 10,000 UNITS/ML VIAL SQ SCH (05:59)
[2017-01-18] MEDS: hydrALAZINE HCL 25 MG TAB PO SCH (06:00)
[2017-01-18 06:20] LABS: HEMATOCRIT 23.1 % (35.0-46.0); MEAN CELL VOLUME 87.1 FL (80.0-100.0); MEAN CORPUSCULAR HEMOGLOBIN 27.4 PG (27.0-34.0); MEAN CORPUSCULAR HGB CONC 31.5 % (32.0-36.0); PLATELET COUNT 362 TH/MM3 (150-450); RED BLOOD COUNT 2.66 MIL/MM3 (4.00-5.30); RED CELL DISTRIBUTION WIDTH 19.2 % (11.6-17.2); REVIEW FLAG FINAL; WHITE BLOOD COUNT 9.5 TH/MM3 (4.0-11.0)
[2017-01-18 06:42] LABS: BICARBONATE 28.6 MEQ/L (21.0-32.0); POTASSIUM 4.1 MEQ/L (3.5-5.1)
[2017-01-18 07:56] VITALS: PULSE 80
[2017-01-18 08:00] VITALS: BP 111/56; PULSE 98; RESP 20; TEMP 97.9; O2SAT 98
[2017-01-18] MEDS: COLLAGENASE OINT 30 GM TUBE TOPICAL SCH (08:44)
[2017-01-18] MEDS: ASPIRIN 81 MG CHEW TAB PO SCH (08:49)
[2017-01-18] MEDS: metFORMIN HCL 500 MG TAB PO SCH (08:49)
[2017-01-18] MEDS: LISINOPRIL 5 MG TAB PO SCH (08:49)
[2017-01-18] MEDS: AMIODARONE 200 MG TAB PO SCH (08:49)
[2017-01-18] MEDS: MORPHINE SULFATE 30 MG CONTROLLED RELEASE TAB PO SCH (08:49)
[2017-01-18] MEDS: CARVEDILOL 6.25 MG TAB PO SCH (08:49)
[2017-01-18] MEDS: LACTOBACILLUS ACIDOPHILUS TAB PO SCH ×2 (08:49→12:39)
[2017-01-18] MEDS: DULoxetine HCl DR 60 MG CAP PO SCH (08:49)
[2017-01-18] MEDS: NYSTATIN 100,000 U/GM OINT 15 GM TUBE TOPICAL SCH (08:50)
[2017-01-18] MEDS ORDERED: METF500 PO (11:55)
[2017-01-18] MEDS ORDERED: CARV6.25 PO (11:55)
[2017-01-18] MEDS ORDERED: MORP1TAB25 PO (11:55)
[2017-01-18] MEDS ORDERED: MSIR15 PO (11:55)
[2017-01-18] MEDS ORDERED: LISI-519 PO (11:55)
[2017-01-18] MEDS ORDERED: MORP1TAB24 PO (11:55)
--- NOTE | 2017-01-18 11:58 | HHI.FF ---
Face to Face Verification Diagnosis: (1) Amputation stump infection (2) CHF (congestive heart failure) (3) DM (diabetes mellitus) (4) Amputation of right lower extremity below knee Physical Therapy Order: Evaluate and Treat Home Health Nursing Order: Wound care and dressing changes I have seen patient Zahra Finnegan on 01/18/17. My clinical findings support the need for the requested home health care services because: Deconditioned w/ increased weakness Limited ability to care for self High risk of falls I certify that my clinical findings support that this patient is homebound because: Post-op weakness Unsteady gait/balance Unsafe to leave home unassisted Rra-mosxpvhgmc-nqkffmei bed/chair Unable to use public transportation Jalen Morrison MD Jan 18, 2017 11:58
[2017-01-18 12:00] VITALS: BP 138/62; PULSE 74; RESP 20; TEMP 98.1; O2SAT 90
--- NOTE | 2017-01-18 13:21 | HHI.DS ---
Discharge Summary Admission Date December 13, 2016 at 20:25 Discharge Date: Jan 18, 2017 Admitting Diagnosis WEAKNESS, UNABLE TO CARE FOR SELF, DIABETES (1) Amputation stump infection ICD Code: T87.40 Diagnosis: Principal (2) DM (diabetes mellitus) ICD Code: E11.9 Diagnosis: Principal (3) CHF (congestive heart failure) ICD Code: I50.9 Diagnosis: Principal (4) Amputation of right lower extremity below knee ICD Code: Z89.511 Diagnosis: Principal (5) HTN (hypertension) ICD Code: I10 Diagnosis: Principal (6) CAD (coronary artery disease) ICD Code: I25.10 Diagnosis: Principal Procedures Right AKA Brief History - From Admission 61 years old female who has an extensive past medical history including recent hospitalization on November 12 for septic shock right leg infection status post BKA ,H/O SLE, breast cancer status post bilateral mastectomy, diabetes mellitus, coronary artery disease status post stenting and CABG 5 vessels, history of hysterectomy, kidney stone, tonsillectomy,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 So patient transferred to ED in ED she was found to have a creatinine of 3 which is above her usual baseline, patient had been on iv antibiotic and status post sepsis and septic shock in the recent hospitalization. Currently she still in pain, no nausea no chest pain no short of breath no fever or chills CBC/BMP: 01/18/17 0549 01/18/17 0549 Significant Findings Laboratory Tests Test 01/18/17 05:49 Red Blood Count 2.66 MIL/MM3 (4.00-5.30) Hemoglobin 7.3 GM/DL (11.6-15.3) Hematocrit 23.1 % (35.0-46.0) Mean Corpuscular Hemoglobin 31.5 % Concent (32.0-36.0) Red Cell Distribution Width 19.2 % (11.6-17.2) PE at Discharge GENERAL: NAD, alert and oriented 3. SKIN: Warm and dry. HEAD: Normocephalic. EYES: No scleral icterus. No injection or drainage. NECK: Supple, trachea midline. No JVD or lymphadenopathy. CARDIOVASCULAR: Regular rate and rhythm without murmurs, gallops, or rubs. RESPIRATORY: Breath sounds equal bilaterally. No accessory muscle use. GASTROINTESTINAL: Abdomen soft, non-tender, nondistended. MUSCULOSKELETAL: No cyanosis, or edema. Right AKA with dressing over the stump BACK: Nontender without obvious deformity. No CVA tenderness. Hospital Course Mrs. Sims is a 61-year-old female admitted 36 days ago secondary to renal failure and uncontrolled diabetes mellitus with global weakness status post right BKA. Her renal function gradually worsen but did respond to treatment Center time eventually improved. Global weakness was a very slow-growing process and she has mostly been in rehabilitation during her stay with us. Discharge to [facility] facility was not an option so patient was kept here to rehabilitation her. She had a fall while here and injured her right BKA stump. She developed osteomalacia as needed right AKA at that point. She is now recovering well. Diabetes is under control. Renal function has normalized. She is able to move to a chair, wheelchair, and bedside commode. Medically stable for discharge to home with home healthcare today. Pt Condition on Discharge: Good Discharge Disposition: Disch w/ Home Health Serv Discharge Time: > 30 minutes Discharge Instructions DIET: Follow Instructions for: As Tolerated, No Restrictions Activities you can perform: Regular-No Restrictions Follow up Referrals: PCP Follow-up - 2 Weeks New Medications: Carvedilol (Coreg) 6.25 Mg Tab 6.25 MG PO Q12HR Blood Pressure Management #60 TAB Lisinopril (Lisinopril) 5 Mg Tab 5 MG PO BID Blood Pressure Management #60 TAB Metformin (Glucophage) 500 Mg Tab 500 MG PO BIDPC blood sugar #60 TAB Morphine ER (Morphine ER) 15 Mg Tab 15 MG PO DAILY@21 Pain Management #20 TAB Morphine ER (Morphine ER) 30 Mg Tab 30 MG PO DAILY Pain Management #20 TAB Morphine IR (Morphine IR) 15 Mg Tab 15 MG PO Q4H PRN PAIN SCALE 4 TO 10 #90 TAB Continued Medications: Alendronate (Alendronate) 70 Mg Tab 70 MG PO Q7D Osteporosis Treatment #4 Ref 0 TAB Amiodarone (Amiodarone) 200 Mg Tab 200 MG PO DAILY Regulate Heart Beat #30 Ref 0 TAB Aspirin (Aspirin) 81 Mg Chew 81 MG PO DAILY Ref 0 TAB Atorvastatin (Lipitor) 40 Mg Tab 40 MG PO HS Cholesterol Management #30 Ref 0 TAB Cholecalciferol (Vitamin D) 5,000 Unit Tab 5000 UNITS PO DAILY Duloxetine DR (Duloxetine DR) 60 Mg Capdr 60 MG PO BID #30 Ref 0 CAP Gabapentin (Gabapentin) 300 Mg Cap 300 MG PO Q6HR #60 Ref 0 CAP Montelukast (Montelukast) 10 Mg Tab 10 MG PO HS #30 Ref 0 TAB Sennosides-Docusate Sodium (Anali-Colace) 8.6-50 Mg Tab 1 TAB PO BID PRN Constipation #60 Ref 0 TAB Discontinued Medications: Insulin Human Isophane-Regular 70-30 Inj (Novolin 70-30 Inj) 1,000 Unit/10 Ml Vial 30 UNITS SQ BID Blood Sugar Management Ref 0 ML Insulin Human Regular Inj (Novolin R Inj) 1,000 Unit/10 Ml Vial SQ ACHS Sliding Scale As Directed. Blood Sugar Management #10 Ref 0 ML Isosorbide Mononitrate ER (Isosorbide Mononitrate ER) 30 Mg Shonda 30 MG PO DAILY Prevent Chest Pain #30 Ref 0 TAB Losartan (Losartan) 25 Mg Tab 25 MG PO DAILY Blood Pressure Management #30 Ref 0 TAB Metoprolol Tartrate (Metoprolol Tartrate) 25 Mg Tab 12.5 MG PO BID #60 Ref 0 TAB Oxycodone-Acetaminophen (Percocet) 10-325 mg Tab 1 TAB PO QID PAIN Ref 0 TAB Oxycodone-Acetaminophen (Oxycodone-Acetaminophen) 10-325 mg Tab 1 TAB PO Q6H PRN PAIN #20 TAB Prednisone (Prednisone) 20 Mg Tab 20 MG PO BID Breathing Treatment #3 TAB Jalen Morrison MD Jan 18, 2017 13:21
[2017-01-18] MEDS ORDERED: WALKER/ADULT/FO1 MIS (13:23)
== END 2017-01-18 14:20 | disposition home health service (06) | DRG 239 ==
LOC: PHED 16:08 → PHEDA 19:06 → PH3A 20:20 → OBSVTOIN 20:25 → PHICU 12-21 15:00 → PH3B 12-24 05:20 → PH5A 12-25 14:18 → N04A 01-11 01:01
PROVIDERS: ADMIT Hospitalist; ATTEND Hospitalist
PROC: 0HDNXZZ Extraction of Left Foot Skin, External Approach (ICD-10-PCS; 2016-12-18)
PROC: 30233N1 Transfusion of Nonautologous Red Blood Cells into Peripheral Vein, Percutaneous Approach (ICD-10-PCS; 2016-12-23)
PROC: 0Y670ZZ Detachment at Right Femoral Region, Open Approach (ICD-10-PCS; principal; 2017-01-12 13:34)
DX: I13.0 Hypertensive heart and chronic kidney disease with heart failure and stage 1 through stage 4 chronic kidney disease, or unspecified chronic kidney disease (principal); I50.43 Acute on chronic combined systolic (congestive) and diastolic (congestive) heart failure; A41.52 Sepsis due to Pseudomonas; A41.02 Sepsis due to Methicillin resistant Staphylococcus aureus; G92 Toxic encephalopathy; N17.9 Acute kidney failure, unspecified; M62.82 Rhabdomyolysis; M86.9 Osteomyelitis, unspecified; D62 Acute posthemorrhagic anemia; B37.49 Other urogenital candidiasis; T87.43 Infection of amputation stump, right lower extremity; N39.0 Urinary tract infection, site not specified; N13.30 Unspecified hydronephrosis; E11.42 Type 2 diabetes mellitus with diabetic polyneuropathy; E11.22 Type 2 diabetes mellitus with diabetic chronic kidney disease; B37.3 Candidiasis of vulva and vagina; E11.40 Type 2 diabetes mellitus with diabetic neuropathy, unspecified; G54.6 Phantom limb syndrome with pain; M32.9 Systemic lupus erythematosus, unspecified; E11.621 Type 2 diabetes mellitus with foot ulcer; S81.031A Puncture wound without foreign body, right knee, initial encounter; I25.10 Atherosclerotic heart disease of native coronary artery without angina pectoris; E78.5 Hyperlipidemia, unspecified; N18.9 Chronic kidney disease, unspecified; J45.909 Unspecified asthma, uncomplicated; L97.529 Non-pressure chronic ulcer of other part of left foot with unspecified severity; I73.9 Peripheral vascular disease, unspecified; E11.51 Type 2 diabetes mellitus with diabetic peripheral angiopathy without gangrene; E11.69 Type 2 diabetes mellitus with other specified complication; E87.5 Hyperkalemia; G89.4 Chronic pain syndrome; R19.7 Diarrhea, unspecified; S82.832E Other fracture of upper and lower end of left fibula, subsequent encounter for open fracture type I or II with routine healing; M21.372 Foot drop, left foot; M81.0 Age-related osteoporosis without current pathological fracture; F40.240 Claustrophobia; F32.9 Major depressive disorder, single episode, unspecified; F41.9 Anxiety disorder, unspecified; W06.XXXA Fall from bed, initial encounter; Y92.230 Patient room in hospital as the place of occurrence of the external cause; Z16.24 Resistance to multiple antibiotics; Y83.5 Amputation of limb(s) as the cause of abnormal reaction of the patient, or of later complication, without mention of misadventure at the time of the procedure; Z79.4 Long term (current) use of insulin; Z89.511 Acquired absence of right leg below knee; Z95.5 Presence of coronary angioplasty implant and graft; Z90.13 Acquired absence of bilateral breasts and nipples; Z80.3 Family history of malignant neoplasm of breast; Z88.2 Allergy status to sulfonamides; Z88.0 Allergy status to penicillin; Z91.013 Allergy to seafood; Z86.14 Personal history of Methicillin resistant Staphylococcus aureus infection; Z87.891 Personal history of nicotine dependence; Z83.3 Family history of diabetes mellitus; Z85.3 Personal history of malignant neoplasm of breast; Z95.1 Presence of aortocoronary bypass graft
CPT/HCPCS: 36430; 73560; 73610; 76775; 76937; 80048; 80053; 81001; 82550; 82552; 82570; 82948; 83036; 83605; 83880; 84155; 84156; 84300; 85025; 85027; 85610; 86403; 86850; 86900; 86901; 86920; 87040; 87070; 87077; 87086; 87147; 87186; 87205; 87493; 87641; 88307; 88311; 93005; 99285; J0131; J0610; J0695; J0712; J0744; J1644; J1815; J1956; J2250; J2270; J2310; J2370; J2405; J3010; J3370; J7030; J7050; J7512; L2114; P9016

== ENCOUNTER 2017-01-20 13:52 | Inpatient (IN) | payer OTHER, MEDICARE ==
[~2017-01-20] VITALS: Ht 157.5 cm; Wt 55.9 kg
[2017-01-20] VITALS (15 sets, daily range): BP systolic 60–110; BP diastolic 30–53; PULSE 55–66; RESP 10–21; TEMP 98–98.4; O2SAT 90–100
[~2017-01-20 13:52] MED LIST changes: +CARV6.25 PO; -ISOS30TA3 PO; +LISI-519 PO; -LOSA25TA PO; +METF500 PO; -METO25TA3 PO; +MORP1TAB24 PO; +MORP1TAB25 PO; +MSIR15 PO; -NOVO7030P2 SQ; -NOVORP2 SQ; -OXYC1TAB36 PO; -PERC10TA27 PO; -PRED20 PO; +WALKER/ADULT/FO1 MIS
[2017-01-20] MEDS ORDERED: SODIUM CHLOR 0.9% 1000 ML INJ 1,000 ML IV ONE ×2 (14:45)
[2017-01-20 15:10] LABS: AUTOMATED NEUTROPHIL # 7.2 TH/MM3 (1.8-7.7); BASOPHIL # 0.1 TH/MM3 (0-0.2); BASOPHIL % 0.7 % (0.0-2.0); EOSINOPHIL # 0.3 TH/MM3 (0-0.4); EOSINOPHIL % 2.3 % (0.0-4.0); LYMPH % 25.1 % (9.0-44.0); MEAN CELL VOLUME 88.7 FL (80.0-100.0); MEAN CORPUSCULAR HEMOGLOBIN 27.3 PG (27.0-34.0); MEAN CORPUSCULAR HGB CONC 30.8 % (32.0-36.0); MONO % 12.2 % (0.0-8.0); NEUT % 59.7 % (16.0-70.0); PLATELET COUNT 309 TH/MM3 (150-450); RED BLOOD COUNT 2.11 MIL/MM3 (4.00-5.30); RED CELL DISTRIBUTION WIDTH 19.6 % (11.6-17.2)
--- NOTE | 2017-01-20 15:12 | PD ---
HPI Chief Complaint: Cardiac Complaint Time Seen by Provider: 14:41 Travel History International Travel<30 days: No Contact w/Intl Traveler<30days: No Traveled to known affect area: No History of Present Illness HPI 61yo F with PMH of CAD s/p CABG, DM, breast CA s/p bilateral mastectomy, SLE, s/ p Rt BKA presents to the ED because she was hypotensive and bradycardic. Pt had right AKA and was admitted 12/13/16-01/18/17. Pt has been weak as per and the visiting nurse came to do the dressing and pt was leaning to the side and fell forward hitting her head. Pt is AAOx3 but has had generalized weakness. Pt found to be bradycardic in the 30s and given atropine 1mg by EVAC and HR is now in the 60s. Pt is hypotensive with BP 60s/30s. BP is responding to NS IVF. Denies any fever, chest pain, sob, n/v, abdominal pain , focal weakness or numbness. PFSH Past Medical History Arthritis: Yes Asthma: Yes Autoimmune Disease: Yes (LUPUS) Blood Disorders: No Anxiety: Yes Depression: Yes Heart Rhythm Problems: No Cancer: Yes (HX CINDY MASTECTOMY - NON MALIGNANT - HX FAMILY BREAST CA) Cardiovascular Problems: Yes High Cholesterol: No Chemotherapy: No Chest Pain: No Congestive Heart Failure: No COPD: No Cerebrovascular Accident: No Diabetes: Yes Patient Takes Glucophage: Yes Endocrine: Yes Gastrointestinal Disorders: Yes (HX FISTULA - COLOSTOMY LEFT UPPER QUAD; ESOPHAGEAL SPASMS) GERD: No Genitourinary: No Headaches: No Hepatitis: No Hiatal Hernia: No Hypertension: No Immune Disorder: Yes (LUPUS ) Implanted Vascular Access Dvce: Yes Kidney Stones: Yes (past stones) Musculoskeletal: Yes (LUPUS - PAIN IN JOINTS/MUSCLE CRAMPS/SPASMS) Neurologic: Yes (DIABETIC NERVE PAIN HANDS & FEET) Psychiatric: Yes Reproductive: No Respiratory: Yes Immunizations Current: Yes Migraines: No Seizures: No Sleep Apnea: No Thyroid Disease: No Ulcer: No ?: Not Menopausal: Yes Past Surgical History Abdominal Surgery: Yes (JAMSHID,COLON SX, COLOSTOMY AND REVERSAL; COLOSTOMY 04/15) AICD: No Arteriovenous Shunt: No Body Medical Devices: CARDIAC STENTS, BREAST SALINE IMPLANTS Cardiac Surgery: Yes (CARDIAC STENTS X2, CABG 5 vessels ) Endocrine Surgery: No Genitourinary Surgery: Yes (KIDNEY STONES 1985, ESWL) Gynecologic Surgery: Yes (HYSTERECTOMY) Hysterectomy: Yes Insulin Pump: No Joint Replacement: No Neurologic Surgery: No Oral Surgery: Yes (TONSILLECTOMY) Pacemaker: No Thoracic Surgery: No Other Surgery: Yes (right aka) Social History Alcohol Use: No ([place]) Tobacco Use: No ([place]) Substance Use: No Allergies-Medications (Allergen,Severity, Reaction): Coded Allergies: Bactrim (Verified Allergy, Severe, Shortness of Breath, 01/20/17) Iodine (Verified Allergy, Severe, THROAT SWELLS, 01/20/17) pt states does not have a allergy to Iodine 01/11/16 JF Penicillin (Verified Allergy, Severe, STOPPED BREATHING, 01/20/17) Shellfish (Verified Allergy, Severe, THROAT SWELLS, 01/20/17) *MDRO Multi-Drug Resistant Organism (Verified Adverse Reaction, Unknown, ) 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, wound - 01/04/17 MRSA (urine)-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 on 12/21/16 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 Reported Meds & Prescriptions Reported Meds & Active Scripts Active Walker/Adult/Folding (Device) 1 Mis Mis 1 Ea .ROUTE DIRECTED Glucophage (Metformin HCl) 500 Mg Tab 500 Mg PO BIDPC Coreg (Carvedilol) 6.25 Mg Tab 6.25 Mg PO Q12HR Morphine ER (Morphine Sulfate) 30 Mg Tab 30 Mg PO DAILY Morphine ER (Morphine Sulfate) 15 Mg Tab 15 Mg PO DAILY@21 Morphine IR (Morphine Sulfate) 15 Mg Tab 15 Mg PO Q4H PRN Reported Duloxetine DR (Duloxetine HCl) 60 Mg Capdr 60 Mg PO BID Lipitor (Atorvastatin Calcium) 40 Mg Tab 40 Mg PO HS Vitamin D (Cholecalciferol) 5,000 Unit Tab 5,000 Units PO DAILY Montelukast (Montelukast Sodium) 10 Mg Tab 10 Mg PO HS Gabapentin 300 Mg Cap 300 Mg PO Q6HR Aspirin 81 Mg Chew 81 Mg PO DAILY Amiodarone (Amiodarone HCl) 200 Mg Tab 200 Mg PO DAILY Review of Systems Except as stated in HPI: all other systems reviewed are Neg Physical Exam Narrative GENERAL: 61yo F in moderate distress. SKIN: Focused skin assessment warm/dry. Pale. HEAD: Small hematoma midforehead. EYES: Pupils equal and round. No scleral icterus. No injection or drainage. ENT: No nasal bleeding or discharge. Mucous membranes pink and moist. NECK: No midline cervical spine ttp. CARDIOVASCULAR: Regular rate and rhythm. No murmur appreciated. RESPIRATORY: No accessory muscle use. Clear to auscultation. Breath sounds equal bilaterally. GASTROINTESTINAL: Abdomen soft, non-tender, nondistended. MUSCULOSKELETAL: RLE: +Right AKA surgical stump, very small amount of clear discharge. No bleeding. Soft compartment. NEUROLOGICAL: Awake and alert. No obvious cranial nerve deficits. Motor grossly within normal limits. Normal speech. PSYCHIATRIC: Appropriate mood and affect; insight and judgment normal. Data Data Last Documented VS Vital Signs Date Time Temp Pulse Resp B/P Pulse Ox O2 Delivery O2 Flow Rate FiO2 01/20/17 15:43 100 40 01/20/17 15:43 BiPAP 01/20/17 15:17 62 10 87/48 2 01/20/17 14:35 98.0 Orders Complete Blood Count With Diff (01/20/17 14:41) Basic Metabolic Panel (Bmp) (01/20/17 14:41) Prothrombin Time / Inr (Pt) (01/20/17 14:41) Act Partial Throm Time (Ptt) (01/20/17 14:41) Type And Screen (01/20/17 14:41) Sodium Chlor 0.9% 1000 Ml Inj (Ns 1000 M (01/20/17 14:45) Sodium Chlor 0.9% 1000 Ml Inj (Ns 1000 M (01/20/17 14:45) Ct Brain W/O Iv Contrast(Rout) (01/20/17 ) Thyroid Stimulating Hormone (01/20/17 14:42) Ckmb (Isoenzyme) Profile (01/20/17 14:42) Troponin I (01/20/17 14:42) Red Blood Cells (Rbc) (01/20/17 15:24) Blood Product Administration .UPON TRANSFUSION (01/20/17 15:24) Sodium Chlor 0.9% 250 Ml Inj (Ns 250 Ml (01/20/17 15:30) Arterial Blood Gas (Abg) (01/20/17 ) CKMB (01/20/17 14:41) CKMB% (01/20/17 14:41) Consult Gastroenterology (01/20/17 ) Chest, Single Ap (01/20/17 ) Admit Order (Ed Use Only) (01/20/17 16:13) Labs Laboratory Tests Test 01/20/17 01/20/17 01/20/17 14:41 15:23 15:31 White Blood Count 12.0 TH/MM3 Red Blood Count 2.11 MIL/MM3 Hemoglobin 5.8 GM/DL Hematocrit 18.7 % Mean Corpuscular Volume 88.7 FL Mean Corpuscular Hemoglobin 27.3 PG Mean Corpuscular Hemoglobin 30.8 % Concent Red Cell Distribution Width 19.6 % Platelet Count 309 TH/MM3 Mean Platelet Volume 7.0 FL Neutrophils (%) (Auto) 59.7 % Lymphocytes (%) (Auto) 25.1 % Monocytes (%) (Auto) 12.2 % Eosinophils (%) (Auto) 2.3 % Basophils (%) (Auto) 0.7 % Neutrophils # (Auto) 7.2 TH/MM3 Lymphocytes # (Auto) 3.0 TH/MM3 Monocytes # (Auto) 1.5 TH/MM3 Eosinophils # (Auto) 0.3 TH/MM3 Basophils # (Auto) 0.1 TH/MM3 CBC Comment DIFF FINAL Differential Comment Prothrombin Time 11.4 SEC Prothromb Time International 1.0 RATIO Ratio Activated Partial 25.1 SEC Thromboplast Time Sodium Level 139 MEQ/L Potassium Level 4.9 MEQ/L Chloride Level 105 MEQ/L Carbon Dioxide Level 25.5 MEQ/L Anion Gap 9 MEQ/L Blood Urea Nitrogen 28 MG/DL Creatinine 1.36 MG/DL Estimat Glomerular Filtration 40 ML/MIN Rate Random Glucose 143 MG/DL Calcium Level 8.5 MG/DL Total Creatine Kinase 319 U/L Creatine Kinase MB 16.2 NG/ML Creatine Kinase MB % 5.1 % Troponin I 0.02 NG/ML Thyroid Stimulating Hormone 3.410 uIU/ML 3rd Gen Blood Type A POSITIVE Antibody Screen NEGATIVE Blood Gas Puncture Site LT RADIAL Blood Gas Patient Temperature 98.6 Blood Gas HCO3 22 mmol/L Blood Gas Base Excess -4.5 mmol/L Blood Gas Oxygen Saturation 96 % Arterial Blood pH 7.25 Arterial Blood Partial 51 mmHg Pressure CO2 Arterial Blood Partial 137 mmHG Pressure O2 Arterial Blood Oxygen Content 8.8 Vol % Arterial Blood 2.8 % Carboxyhemoglobin Arterial Blood Methemoglobin 0.5 % Blood Gas Hemoglobin 6.3 G/DL Oxygen Delivery Device NASAL CANNULA Blood Gas Liter Flow 3 L/M Crossmatch Leukocyte-Reduced Red Blood Cells Blood Bank Comment MDM Medical Decision Making Medical Screen Exam Complete: Yes Emergency Medical Condition: Yes Interpretation(s) EKG: NSR 61bpm. Normal axis. No ST segment elevation or depression. Differential Diagnosis Hemorrhagic shock vs. septic shock vs. cardiogenic shock Narrative Course 61yo F who presents hypotensive and bradycardic s/p atropine by EVAC. Pt was just discharged 2 days ago. Labs reviewed, mild leukocyteosis at 12.0. H/H is 5.8/18.7, slightly lower than 2 days ago when it was 7.3/23.1. May be dilutional or bleeding. Ordered 4 units of PRBC. Hemaprompt from colostomy bag was negative. Pt has tendency to slip down and injure herself and as per , right femur has been larger than left. Discussed with senior grant writer and accepted to Dr. Jean's service. Dr. Jean requested GI consult which I placed. Dr. Cooper who did the right BKA then AKA was notified and will come see patient. CKMB percentage mildly elevated at 5.1, likely related to demand ischemia. Troponin is negative. Will trend. TSH 3.410. UA negative. CT brain negative. CXR showed persistent diffuse increased interstitial markings likely representing some edema. Less prominent than they did on prior exam. Blood pressure has improved with NS IVFx2 and now pt is receiving 2 units of blood simultaneously. ABG showed respiratory acidosis with ph of 7.25 and PCO2 of 51. Pt placed on BIPAP. She uses oxygen nasal cannula 3 L at home. Repeat ABG showed mild improvement on the BIPAP with pH 7.27 and CO2 49. Pt was on 12/ 5 and now 15/5. MAP is now 60. Will start pt on norepinephrine for a little bit just to improve the blood pressure. Will start norepinephrine in the 18 gauge for now and keep MAP >65. Pt has three peripheral IV lines, 18 gauge, 20 gauge and 22 gauge. Pt currently does not want me to place a line in her neck. She is AAOx3. Pt will be transferred to ICU for further management. Critical Care Narrative Aggregate critical care time was 90 minutes. Time to perform other separately billable procedures was not included in the critical care time. My time did not include minutes spent treating any other patients simultaneously or on activities that did not directly contribute to the patient's treatment. The services I provided to this patient were to treat and/or prevent clinically significant deterioration that could result in: cardiovascular collapse or . I provided critical care services requiring my management, as noted below: Chart data review, documentation time, medication orders and management, vital sign assessments/reviewing monitor data, ordering and reviewing lab tests, ordering and interpreting/reviewing x-rays and diagnostic studies, care of the patient and discussion of the patient with the admitting physicians. Diagnosis Primary Impression: Severe anemia Admitting Information Admitting Physician Requests: Admit Scripts Morphine IR 15 Mg Tab15 Mg PO Q6HR PRN (PAIN 4-10/10) #12 TAB Prov:Clinton Potter MD 01/22/17 Margret Nava DO Jan 20, 2017 15:12
[2017-01-20 15:19] LABS: APTT (PATIENT) 25.1 SEC (24.3-30.1); PROTHROMBIN TIME - PATIENT 11.4 SEC (9.8-11.6)
[2017-01-20 15:21] LABS: HEMO FLAGS DIFF FINAL
[2017-01-20 15:23] LABS: HEMATOCRIT 18.7 % (35.0-46.0)
[2017-01-20] MEDS ORDERED: SODIUM CHLOR 0.9% 250 ML INJ 250 ML IV ONE (15:30)
[2017-01-20 15:40] LABS: BICARBONATE 25.5 MEQ/L (21.0-32.0); POTASSIUM 4.9 MEQ/L (3.5-5.1)
[2017-01-20 15:50] LABS: BLOOD GAS BASE EXCESS -4.5 mmol/L (-2-2); BLOOD GAS CARBOXYHEMOGLOBIN 2.8 % (0-4); BLOOD GAS HCO3 22 mmol/L (22-26); BLOOD GAS METHEMOGLOBIN 0.5 % (0-2); BLOOD GAS O2 HGB SATURATION 96 % (90-100); BLOOD GAS OXYGEN CONTENT 8.8 Vol % (12.0-20.0); BLOOD GAS PCO2 51 mmHg (38-42); BLOOD GAS PO2 137 mmHG (61-120); BLOOD GAS TOTAL HGB 6.3 G/DL (12.0-16.0); CRITICAL VALUE YES; DRAW SITE LT RADIAL; LITER FLOW 3 L/M; NUMBER OF ARTERIAL PUNCTURES 1; OXYGEN DEVICE NASAL CANNULA; STAT YES; TEMP CORR TO 98.6; ULNAR PULSE PRESENT
[2017-01-20 15:50] LABS: CKMB 16.2 NG/ML (0.5-3.6)
[2017-01-20] MEDS ORDERED: LACTULOSE SYRUP 20 GM/30 ML CUP PO PRN (16:45)
[2017-01-20] MEDS ORDERED: BISACODYL 10 MG SUPP RECTAL PRN (16:45)
[2017-01-20] MEDS ORDERED: MISCELLANEOUS NURSING INFORMATION XX SCH ×2 (16:45→17:00)
[2017-01-20] MEDS ORDERED: SENNOSIDES 8.6 MG TAB PO PRN (16:45)
[2017-01-20] MEDS ORDERED: RESP: ALBUTEROL 2.5 MG/IPRATROPIUM 0.5 MG NEB (PRN) INH ×2 (16:45→17:00)
[2017-01-20] MEDS ORDERED: CHLORHEXIDINE GLUCONATE 2 % 1 PACK (2 CLOTHS) TOP PRN ×2 (16:45→17:00)
--- NOTE | 2017-01-20 17:09 | RADRPT ---
EXAM DATE/TIME: 01/20/2017 16:17 [facility] COMPARISON: CHEST SINGLE AP, November 19, 2016, 4:28. INDICATIONS : Shortness of breath. MEDICAL HISTORY : Hypertension. Cardiovascular disease. SURGICAL HISTORY : Mastectomy, bilateral. CABG. ENCOUNTER: Initial ACUITY: 1 day PAIN SCORE: Non-responsive. LOCATION: Bilateral chest FINDINGS: The patient is status post sternotomy. The heart size is within normal limits. Clips ar e seen in the left axillary region. The lungs demonstrate diffuse increased interstitial markings. These appear improved when compared to the prior exam from 11/19/2016. CONCLUSION: Persistent diffuse increased interstitial markings likely representing some edema. Th charlie findings appear less prominent than they did on the prior exam. Femi Camejo MD on January 20, 2017 at 17:05 Board Certified Radiologist. This report was verified electronically.
[2017-01-20] MEDS ORDERED: VANCOMYCIN INJ 1,000 MG in SODIUM CHLOR 0.9% 250 ML INJ 250 ML IV ONE (17:15)
[2017-01-20 17:48] LABS: BACTERIA, URINE RARE /hpf; BLOOD, URINE NEG (NEG); COMMENT (UR) CATH-CULTURE IND; CULTURE IF INDICATED CATH CULTURE IND; GLUCOSE,URINE NEG (NEG); HYALINE CAST, URINE 5 /lpf (RARE); KETONE, URINE NEG (NEG); MUCUS URINE FEW /lpf (OCC); NITRITE,URINE NEG (NEG); SQUAMOUS EPITHELIAL CELL URINE <1 /hpf (0-5); URINE COLOR YELLOW (YELLW/STRAW)
[2017-01-20 17:49] LABS: BLOOD GAS BASE EXCESS -4.2 mmol/L (-2-2); BLOOD GAS CARBOXYHEMOGLOBIN 2.5 % (0-4); BLOOD GAS HCO3 22 mmol/L (22-26); BLOOD GAS METHEMOGLOBIN 0.7 % (0-2); BLOOD GAS O2 HGB SATURATION 96 % (90-100); BLOOD GAS OXYGEN CONTENT 9.3 Vol % (12.0-20.0); BLOOD GAS PCO2 49 mmHg (38-42); BLOOD GAS PO2 147 mmHG (61-120); BLOOD GAS TOTAL HGB 6.6 G/DL (12.0-16.0); CRITICAL VALUE YES; FIO2 35 %; OXYGEN DEVICE BiPAP; TEMP CORR TO 98.6; VENT SETTINGS IPAP12/EPAP5
[2017-01-20 17:50] LABS: DRAW SITE LT RADIAL; NUMBER OF ARTERIAL PUNCTURES 1; STAT YES; ULNAR PULSE PRESENT
[2017-01-20] MEDS ORDERED: NOREPINEPHRINE-DEXTROSE DRIP 250 ML IV SCH (18:15)
--- NOTE | 2017-01-20 18:18 | MH ---
cc: ALISSON FLORES M.D. DATE OF ADMISSION 01/20/2017 DATE OF 1955 HISTORY OF THE PRESENT ILLNESS The patient is a 61-year-old female with past medical history of coronary artery disease with previous CABG, diabetes mellitus and breast CA with a bilateral mastectomy, systemic lupus erythematosus, status post right above knee amputation on January [address] Wakefield. She presented to [facility] ED with generalized weakness, decreased p.o. intake. On arrival to the ER she was hypotensive with a systolic blood pressure 70s to 80s. Her laboratory data significant for a hemoglobin of 5.8, hematocrit 18.7 and acute kidney injury with creatinine level of 1.36. In the ER she received 2 liters of normal saline and scheduled to receive 4 units of packed RBCs. According to the , the patient's right thigh has been progressively getting larger since surgery. Case discussed with Dr. Wakefield from vascular surgery and plan to see the patient soon. When seen in the ER she is on BiPap 12/5 with 35% FIO2. ABG on a nasal cannula showed a pH of 7.25, CO2 51, pAO2 137, bicarb 22 and saturation of 96%. The patient is awake and responds to questions appropriately, however, feels tired. She was also found to be bradycardic in the 30s and she was given 1 mg of atropine by EVAC and her heart rate improved to the 60s. PAST MEDICAL HISTORY Significant for: 1. Coronary artery disease. 2. Breast cancer. 3. Peripheral vascular disease. 4. Morbid obesity. 5. History of systemic lupus erythematosus. PAST SURGICAL HISTORY 1. Previous bilateral mastectomy. 2. Previous colostomy for a fistula in the left upper quadrant. 3. Previous right above-knee amputation on January 13. 4. Previous cholecystectomy. 5. Previous CABG. 6. Coronary stents. 7. Previous hysterectomy. 8. Tonsillectomy. ALLERGIES TO PENICILLIN, BACTRIM, IODINE. FAMILY HISTORY Noncontributory. SOCIAL HISTORY Nonsmoker, nondrinker. MEDICATIONS Reviewed which include: 1. Duloxetine. 2. Lipitor. 3. Vitamin D. 4. Singulair. 5. Gabapentin. 6. Aspirin. 7. Amiodarone. REVIEW OF SYSTEMS As per HPI. The rest of the review of systems unremarkable. The patient denies any hematemesis, hemoptysis or abdominal pain. In addition she denies any nausea, vomiting, chest pain or shortness of breath. PHYSICAL EXAMINATION GENERAL: A 61-year-old female on a BiPap in no acute respiratory distress. VITAL SIGNS: Temperature 98.0, pulse 58, blood pressure 87/56, saturation 99% on BiPap 12/5 with 35% FIO2. HEENT: Atraumatic normocephalic. Pupils equal, round and reactive to light and accommodation. Extraocular muscles intact. Conjunctivae pink. Nonicteric sclerae. Oral mucosa within normal. NECK: Supple. No JVD, adenopathy or thyromegaly. Trachea midline. CARDIOVASCULAR: Regular rate and rhythm. Normal S1-S2. No murmurs, rubs or gallops noted. LUNGS: Pulmonary exam bilateral equal air entry. No rales or wheezing. ABDOMEN: Soft, nontender, no distension. Positive bowel sounds. Colostomy bag noted left upper quadrant. EXTREMITIES: Right above-knee amputation noted. NEUROLOGIC: No focal sensory deficit. EKG shows sinus rhythm rate 61 beats per minute. LABORATORY DATA Sodium 139, potassium 4.9, chloride 105, CO2 25, BUN 28, creatinine 1.36, glucose 143. Total CK 319, MB 16.2. Troponin 0.02. MB percentage 5.1. TSH 3.4, WBC 12.0, hemoglobin 5.8, hematocrit 18, platelet count of 309. INR 1.0. PT 11.4, PTT 25.1. Impression: 1)Resp Insuff 2)Severe anemia 3)ALFREDO- improved 4)s/p Right AKA 5)CHF/Cardiomyopathy with EF 25-30% 6)PVD 7)Hx breast ca Plan 1. Monitor neurological status closely and avoid any sedatives. The patient is for a CT scan of the brain without IV contrast. 2. Continue with oxygen and maintain sats above 92%. 3. Bronchodilators in the form of DuoNeb q.6 plus q.2h as needed for shortness of breath. 4. We will check ABG on BiPap. If there is any worsening in respiratory status or clinical condition we will proceed with intubation and mechanical ventilation. 5. Monitor heart rate and blood pressure closely and maintain MAP greater than 65 mmHg. Echocardiogram from November 13 showed cardiomyopathy with EF of 25-30%. 6. Monitor cardiac enzymes with troponins and we will check lactic acid level. 7. Monitor renal function, Is and Os and avoid nephrotoxins. Place on IV fluids in the form of NS at 84 an hour. Insert a [place]. 8. Keep n.p.o. for now and place on Protonix 40 mg IV daily for GI prophylaxis. 9. The patient for transfusion 4 units of PRBCs. Will check H&H q. 6-hour. We will consult vascular surgery. The case discussed with Dr. Wakefield and plans to see the patient soon. There is no evidence of any GI bleed. We will guaiac stool for heme. Place on empiric antibiotics in the form of Zosyn and vancomycin and monitor for signs of infections which include fever and WBC. We will check urinalysis with culture if indicated and follow up on a chest x-ray. 10. GI prophylaxis with Protonix 40 mg daily and DVT prophylaxis with SCDs to the left lower extremity. 11. Further recommendations will be based on the hospital course. Critical care time 40 minutes excluding procedures. MD BRYANT Ortiz/SERGEY /5:12 PM /5:56 PM [facility]
--- NOTE | 2017-01-20 19:33 | RADRPT ---
EXAM DATE/TIME: 01/20/2017 18:51 [place] COMPARISON: No previous studies available for comparison. INDICATIONS : Fell today hit frontal area of head. RADIATION DOSE: 56.36 CTDIvol (mGy) MEDICAL HISTORY : Lupus. Cardiovascular disease Diabetes SURGICAL HISTORY : Cholecystectomy. Cholecystectomy.Mastectomy, bilateral. ENCOUNTER: Initial ACUITY: 1 day PAIN SCALE: 4/10 LOCATION: cranial TECHNIQUE: Multiple contiguous axial images were obtained of the head. Using automated exposure control and adj ustment of the mA and/or kV according to patient size, radiation dose was kept as low as reasonably a chievable to obtain optimal diagnostic quality images. FINDINGS: CEREBRUM: There is generalized atrophy. Ventricles are normal in size. There is mild periventricular white kira er low attenuation. No evidence of midline shift, mass lesion, hemorrhage or acute infarction. No e xtra-axial fluid collections are seen. POSTERIOR FOSSA: The cerebellum and brainstem demonstrate no acute finding. The 4th ventricle is midline. The cerebe llopontine angle is unremarkable. EXTRACRANIAL: The visualized sinuses are clear. SKULL: The calvaria is intact. No evidence of skull fracture. CONCLUSION: No acute intracranial abnormality is identified. Femi Barron MD on January 20, 2017 at 19:29 Board Certified Radiologist. This report was verified electronically.
[2017-01-20] MEDS: RESP: ALBUTEROL 2.5 MG/IPRATROPIUM 0.5 MG NEB (SCH) INH (19:42)
--- NOTE | 2017-01-20 20:10 | PD.CAR.PN ---
CVT Progress Note Subjective/Hospital Course: Patient known to me from previous admissions Patient returns to Hospital pale, weak with hemoglobin of 5.8 g/dL Patient left the hospital with hemoglobin of 7 g/dL last week so I didn't take much to drop it 1 or 2 g. Patient is clearly very ill lady with decreased and suppress bone marrow production, on multiple medications and now received 1 L of saline which further diluted her. Patient is NOT bleeding from any source at this time, including her thigh. Stump is clean and dry and high is completely normal in size. This patient does NOT have hemorrhagic shock and no clinical parameters as to the same This patient is severely anemic with decreased oxygen carrying capacity and requires blood transfusion I have discussed this with Dr. Nava in the emergency room. Objective: Vital Signs Date Time Temp Pulse Resp B/P Pulse Ox O2 Delivery O2 Flow Rate FiO2 01/20/17 19:39 100 40 01/20/17 19:14 98.1 64 20 110/53 100 01/20/17 18:32 98.1 58 14 102/51 100 BiPAP 35 01/20/17 18:28 98.1 57 13 86/46 100 BiPAP 35 01/20/17 17:45 98.4 55 10 88/48 100 BiPAP 35 01/20/17 17:30 100 35 01/20/17 16:55 98.0 57 10 70/37 98 BiPAP 01/20/17 16:25 98.4 59 87/51 BiPAP 35 01/20/17 16:20 59 87/51 100 BiPAP 35 01/20/17 15:43 100 40 01/20/17 15:43 100 BiPAP 40 01/20/17 15:17 62 10 87/48 90 Nasal Cannula 2 01/20/17 14:51 62 78/43 100 Nasal Cannula 2 01/20/17 14:35 98.0 66 16 60/30 94 Room Air Labs: Laboratory Tests Test 01/20/17 01/20/17 01/20/17 01/20/17 14:41 15:23 15:31 17:14 White Blood Count 12.0 TH/MM3 (4.0-11.0) Red Blood Count 2.11 MIL/MM3 (4.00-5.30) Hemoglobin 5.8 GM/DL (11.6-15.3) Hematocrit 18.7 % (35.0-46.0) Mean Corpuscular Volume 88.7 FL (80.0-100.0) Mean Corpuscular Hemoglobin 27.3 PG (27.0-34.0) Mean Corpuscular Hemoglobin 30.8 % Concent (32.0-36.0) Red Cell Distribution Width 19.6 % (11.6-17.2) Platelet Count 309 TH/MM3 (150-450) Mean Platelet Volume 7.0 FL (7.0-11.0) Neutrophils (%) (Auto) 59.7 % (16.0-70.0) Lymphocytes (%) (Auto) 25.1 % (9.0-44.0) Monocytes (%) (Auto) 12.2 % (0.0-8.0) Eosinophils (%) (Auto) 2.3 % (0.0-4.0) Basophils (%) (Auto) 0.7 % (0.0-2.0) Neutrophils # (Auto) 7.2 TH/MM3 (1.8-7.7) Lymphocytes # (Auto) 3.0 TH/MM3 (1.0-4.8) Monocytes # (Auto) 1.5 TH/MM3 (0-0.9) Eosinophils # (Auto) 0.3 TH/MM3 (0-0.4) Basophils # (Auto) 0.1 TH/MM3 (0-0.2) CBC Comment DIFF FINAL Differential Comment Prothrombin Time 11.4 SEC (9.8-11.6) Prothromb Time International 1.0 RATIO Ratio Activated Partial 25.1 SEC Thromboplast Time (24.3-30.1) Sodium Level 139 MEQ/L (136-145) Potassium Level 4.9 MEQ/L (3.5-5.1) Chloride Level 105 MEQ/L (98-107) Carbon Dioxide Level 25.5 MEQ/L (21.0-32.0) Anion Gap 9 MEQ/L (5-15) Blood Urea Nitrogen 28 MG/DL (7-18) Creatinine 1.36 MG/DL (0.50-1.00) Estimat Glomerular Filtration 40 ML/MIN (>89) Rate Random Glucose 143 MG/DL (74-106) Calcium Level 8.5 MG/DL (8.5-10.1) Total Creatine Kinase 319 U/L (26-192) Creatine Kinase MB 16.2 NG/ML (0.5-3.6) Creatine Kinase MB % 5.1 % (0.0-4.0) Troponin I 0.02 NG/ML (0.02-0.05) Thyroid Stimulating Hormone 3.410 uIU/ML 3rd Gen (0.358-3.740) Blood Type A POSITIVE Antibody Screen NEGATIVE Blood Gas Puncture Site LT RADIAL LT RADIAL Blood Gas Patient Temperature 98.6 98.6 Blood Gas HCO3 22 mmol/L 22 mmol/L (22-26) (22-26) Blood Gas Base Excess -4.5 mmol/L -4.2 mmol/L (-2-2) (-2-2) Blood Gas Oxygen Saturation 96 % (90-100) 96 % (90-100) Arterial Blood pH 7.25 7.27 (7.380-7.420) (7.380-7.420) Arterial Blood Partial 51 mmHg (38-42) 49 mmHg (38-42) Pressure CO2 Arterial Blood Partial 137 mmHG 147 mmHG Pressure O2 (61-120) (61-120) Arterial Blood Oxygen Content 8.8 Vol % 9.3 Vol % (12.0-20.0) (12.0-20.0) Arterial Blood 2.8 % (0-4) 2.5 % (0-4) Carboxyhemoglobin Arterial Blood Methemoglobin 0.5 % (0-2) 0.7 % (0-2) Blood Gas Hemoglobin 6.3 G/DL 6.6 G/DL (12.0-16.0) (12.0-16.0) Oxygen Delivery Device NASAL CANNULA BiPAP Blood Gas Liter Flow 3 L/M Crossmatch Leukocyte-Reduced Red Blood Cells Blood Bank Comment Blood Gas Ventilator Setting IPAP12/EPAP5 Blood Gas Inspired Oxygen 35 % Test 01/20/17 17:30 Urine Color YELLOW (YELLW/STRAW) Urine Turbidity CLEAR (CLEAR) Urine pH 5.0 (5.0-8.5) Urine Specific [place] 1.010 (1.002-1.035) Urine Protein NEG mg/dL (NEG-TRACE) Urine Glucose (UA) NEG mg/dL (NEG) Urine Ketones NEG mg/dL (NEG) Urine Occult Blood NEG (NEG) Urine Nitrite NEG (NEG) Urine Bilirubin NEG (NEG) Urine Urobilinogen LESS THAN 2.0 MG/DL (LESS THAN 2.0) Urine Leukocyte Esterase NEG (NEG) Urine RBC LESS THAN 1 /hpf (0-3) Urine WBC 1 /hpf (0-5) Urine Squamous Epithelial <1 /hpf (0-5) Cells Urine Bacteria RARE /hpf (NONE) Urine Hyaline Casts 5 /lpf (RARE) Urine Mucus FEW /lpf (OCC) Microscopic Urinalysis Comment CATH-CULTURE IND Result Diagram: 01/20/17 1441 01/20/17 1441 Chantale Wakefield MD Jan 20, 2017 20:10
[2017-01-20] MEDS: PANTOPRAZOLE SODIUM 40 MG VIAL IV SCH (20:17)
[2017-01-20] MEDS ORDERED: DOCUSATE SODIUM 50 MG/SENNA 8.6 MG TAB PO SCH (21:00)
[2017-01-20] MEDS: PIPERACIL-TAZO 3.375 GM PREMIX 50 ML IV SCH (21:50)
[2017-01-21] VITALS (22 sets, daily range): BP systolic 98–177; BP diastolic 51–89; PULSE 64–97; RESP 18–29; TEMP 97.5–99.3; O2SAT 93–100
[2017-01-21] MEDS ORDERED: FUROSEMIDE 20 MG/2 ML VIAL IV PUSH ONE (00:15)
[2017-01-21] MEDS: PIPERACIL-TAZO 3.375 GM PREMIX 50 ML IV SCH ×4 (00:25→17:18)
[2017-01-21 02:34] LABS: BLOOD GAS BASE EXCESS -2.6 mmol/L (-2-2); BLOOD GAS HCO3 23 mmol/L (22-26); BLOOD GAS METHEMOGLOBIN 1.5 % (0-2); BLOOD GAS O2 HGB SATURATION 95 % (90-100); BLOOD GAS OXYGEN CONTENT 15.9 Vol % (12.0-20.0); BLOOD GAS PCO2 45 mmHg (38-42); BLOOD GAS PO2 170 mmHg (61-120); BLOOD GAS TOTAL HGB 11.7 G/DL (12.0-16.0); CRITICAL VALUE NO; TEMP CORR TO 98.6
[2017-01-21 02:35] LABS: DRAW SITE RT RADIAL; FIO2 40 %; NUMBER OF ARTERIAL PUNCTURES 1; OXYGEN DEVICE BIPAP; STAT NO; ULNAR PULSE PRESENT; VENT SETTINGS IPAP15/+5EPAP
[2017-01-21 03:05] LABS: ALT (GPT) 14 U/L (10-53); ANION GAP 11 MEQ/L (5-15); AST (GOT) 28 U/L (15-37); BICARBONATE 25.2 MEQ/L (21.0-32.0); BLOOD UREA NITROGEN 25 MG/DL (7-18); CHLORIDE 107 MEQ/L (98-107); GLOMERULAR FILTRATION RATE 60 ML/MIN (>89); POTASSIUM 4.3 MEQ/L (3.5-5.1); SODIUM (NA) 143 MEQ/L (136-145)
[2017-01-21 03:09] LABS: ALKALINE PHOSPHATASE 53 U/L (45-117); CREATINE KINASE 260 U/L (26-192); TOTAL BILIRUBIN ADULT 1.9 MG/DL (0.2-1.0)
[2017-01-21] MEDS: CHLORHEXIDINE GLUCONATE 2 % 1 PACK (2 CLOTHS) TOP SCH (03:28)
[2017-01-21] MEDS ORDERED: ACETAMINOPHEN 325 MG TAB PO PRN (03:30)
[2017-01-21] MEDS: MORPHINE SULFATE 15 MG TAB PO PRN ×5 (03:32→20:59)
[2017-01-21 03:36] LABS: CKMB 13.3 NG/ML (0.5-3.6)
[2017-01-21] MEDS: RESP: ALBUTEROL 2.5 MG/IPRATROPIUM 0.5 MG NEB (SCH) INH ×4 (03:41→21:13)
[2017-01-21] MEDS ORDERED: CHLORHEXIDINE GLUCONATE 2 % 1 PACK (2 CLOTHS) TOP SCH (04:00)
[2017-01-21 04:05] LABS: AUTOMATED NEUTROPHIL # 10.1 TH/MM3 (1.8-7.7); BASOPHIL # 0.1 TH/MM3 (0-0.2); BASOPHIL % 0.5 % (0.0-2.0); EOSINOPHIL # 0.3 TH/MM3 (0-0.4); EOSINOPHIL % 2.6 % (0.0-4.0); HEMATOCRIT 36.6 % (35.0-46.0); HEMO FLAGS DIFF FINAL; LYMPH % 10.8 % (9.0-44.0); LYMPHOCYTE # 1.4 TH/MM3 (1.0-4.8); MEAN CELL VOLUME 85.5 FL (80.0-100.0); MEAN CORPUSCULAR HEMOGLOBIN 28.6 PG (27.0-34.0); MEAN CORPUSCULAR HGB CONC 33.5 % (32.0-36.0); MONO % 9.7 % (0.0-8.0); NEUT % 76.4 % (16.0-70.0); PLATELET COUNT 291 TH/MM3 (150-450); RED BLOOD COUNT 4.27 MIL/MM3 (4.00-5.30); RED CELL DISTRIBUTION WIDTH 16.5 % (11.6-17.2); WHITE BLOOD COUNT 13.2 TH/MM3 (4.0-11.0)
--- NOTE | 2017-01-21 07:31 | HHI.CCPN ---
Subjective Remarks/Hospital Course The patient is a 61-year-old female with past medical history of coronary artery disease with previous CABG, diabetes mellitus and breast CA with a bilateral mastectomy, systemic lupus erythematosus, status post right above knee amputation on January [address] Wakefield. She presented to [facility] ED with generalized weakness, decreased p.o. intake. On arrival to the ER she was hypotensive with a systolic blood pressure 70s to 80s. Her laboratory data significant for a hemoglobin of 5.8, hematocrit 18.7 and acute kidney injury with creatinine level of 1.36. In the ER she received 2 liters of normal saline and scheduled to receive 4 units of packed RBCs. According to the , the patient's right thigh has been progressively getting larger since surgery. Case discussed with Dr. Wakefield from vascular surgery and plan to see the patient soon. When seen in the ER she is on BiPap 12/5 with 35% FIO2. ABG on a nasal cannula showed a pH of 7.25, CO2 51, pAO2 137, bicarb 22 and saturation of 96%. The patient is awake and responds to questions appropriately, however, feels tired. She was also found to be bradycardic in the 30s and she was given 1 mg of atropine by EVAC and her heart rate improved to the 60s. 01/21 Patient is off BIPAP s/p 4 units PRBC for Hgb 5.8 repeat Hgb 12.2 early this morning. Given Lasix 20mg IV x1 overnight. Afebrile. Renal function improved. Objective Vital Signs Date Time Temp Pulse Resp B/P Pulse Ox O2 Delivery O2 Flow Rate FiO2 01/21/17 06:00 75 01/21/17 04:00 98.3 21 177/76 100 01/21/17 03:41 Nasal Cannula 1.00 01/21/17 00:00 40 Intake and Output 01/20/17 01/20/17 01/21/17 08:00 16:00 00:00 Intake Total 1449 ml Output Total 850 ml Balance 599 ml Result Diagram: 01/21/17 0328 01/21/17 0144 Other Results Laboratory Tests Test 01/20/17 01/20/17 01/20/17 01/20/17 14:41 15:23 15:31 17:14 White Blood Count 12.0 TH/MM3 Red Blood Count 2.11 MIL/MM3 Hemoglobin 5.8 GM/DL Hematocrit 18.7 % Mean Corpuscular Volume 88.7 FL Mean Corpuscular Hemoglobin 27.3 PG Mean Corpuscular Hemoglobin 30.8 % Concent Red Cell Distribution Width 19.6 % Platelet Count 309 TH/MM3 Mean Platelet Volume 7.0 FL Neutrophils (%) (Auto) 59.7 % Lymphocytes (%) (Auto) 25.1 % Monocytes (%) (Auto) 12.2 % Eosinophils (%) (Auto) 2.3 % Basophils (%) (Auto) 0.7 % Neutrophils # (Auto) 7.2 TH/MM3 Lymphocytes # (Auto) 3.0 TH/MM3 Monocytes # (Auto) 1.5 TH/MM3 Eosinophils # (Auto) 0.3 TH/MM3 Basophils # (Auto) 0.1 TH/MM3 CBC Comment DIFF FINAL Differential Comment Prothrombin Time 11.4 SEC Prothromb Time International 1.0 RATIO Ratio Activated Partial 25.1 SEC Thromboplast Time Sodium Level 139 MEQ/L Potassium Level 4.9 MEQ/L Chloride Level 105 MEQ/L Carbon Dioxide Level 25.5 MEQ/L Anion Gap 9 MEQ/L Blood Urea Nitrogen 28 MG/DL Creatinine 1.36 MG/DL Estimat Glomerular Filtration 40 ML/MIN Rate Random Glucose 143 MG/DL Calcium Level 8.5 MG/DL Total Creatine Kinase 319 U/L Creatine Kinase MB 16.2 NG/ML Creatine Kinase MB % 5.1 % Troponin I 0.02 NG/ML Thyroid Stimulating Hormone 3.410 uIU/ML 3rd Gen Blood Type A POSITIVE Antibody Screen NEGATIVE Blood Gas Puncture Site LT RADIAL LT RADIAL Blood Gas Patient Temperature 98.6 98.6 Blood Gas HCO3 22 mmol/L 22 mmol/L Blood Gas Base Excess -4.5 mmol/L -4.2 mmol/L Blood Gas Oxygen Saturation 96 % 96 % Arterial Blood pH 7.25 7.27 Arterial Blood Partial 51 mmHg 49 mmHg Pressure CO2 Arterial Blood Partial 137 mmHG 147 mmHG Pressure O2 Arterial Blood Oxygen Content 8.8 Vol % 9.3 Vol % Arterial Blood 2.8 % 2.5 % Carboxyhemoglobin Arterial Blood Methemoglobin 0.5 % 0.7 % Blood Gas Hemoglobin 6.3 G/DL 6.6 G/DL Oxygen Delivery Device NASAL CANNULA BiPAP Blood Gas Liter Flow 3 L/M Crossmatch Leukocyte-Reduced Red Blood Cells Blood Bank Comment Blood Gas Ventilator Setting IPAP12/EPAP5 Blood Gas Inspired Oxygen 35 % Test 01/20/17 01/20/17 01/21/17 01/21/17 17:30 19:15 01:44 02:20 Urine Color YELLOW Urine Turbidity CLEAR Urine pH 5.0 Urine Specific [place] 1.010 Urine Protein NEG mg/dL Urine Glucose (UA) NEG mg/dL Urine Ketones NEG mg/dL Urine Occult Blood NEG Urine Nitrite NEG Urine Bilirubin NEG Urine Urobilinogen LESS THAN 2.0 MG/DL Urine Leukocyte Esterase NEG Urine RBC LESS THAN 1 /hpf Urine WBC 1 /hpf Urine Squamous Epithelial <1 /hpf Cells Urine Bacteria RARE /hpf Urine Hyaline Casts 5 /lpf Urine Mucus FEW /lpf Microscopic Urinalysis Comment CATH-CULTURE IND Nasal Screen MRSA (PCR) MRSA NOT DETECTED Sodium Level 143 MEQ/L Potassium Level 4.3 MEQ/L Chloride Level 107 MEQ/L Carbon Dioxide Level 25.2 MEQ/L Anion Gap 11 MEQ/L Blood Urea Nitrogen 25 MG/DL Creatinine 0.95 MG/DL Estimat Glomerular Filtration 60 ML/MIN Rate Random Glucose 73 MG/DL Calcium Level 8.1 MG/DL Total Bilirubin 1.9 MG/DL Aspartate Amino Transf 28 U/L (AST/SGOT) Alanine Aminotransferase 14 U/L (ALT/SGPT) Alkaline Phosphatase 53 U/L Total Creatine Kinase 260 U/L Creatine Kinase MB 13.3 NG/ML Creatine Kinase MB % 5.1 % Troponin I LESS THAN 0.02 NG/ML Total Protein 6.1 GM/DL Albumin 2.1 GM/DL Blood Gas Puncture Site RT RADIAL Blood Gas Patient Temperature 98.6 Blood Gas HCO3 23 mmol/L Blood Gas Base Excess -2.6 mmol/L Blood Gas Oxygen Saturation 95 % Arterial Blood pH 7.32 Arterial Blood Partial 45 mmHg Pressure CO2 Arterial Blood Partial 170 mmHg Pressure O2 Arterial Blood Oxygen Content 15.9 Vol % Arterial Blood 3.0 % Carboxyhemoglobin Arterial Blood Methemoglobin 1.5 % Blood Gas Hemoglobin 11.7 G/DL Oxygen Delivery Device BIPAP Blood Gas Ventilator Setting [id number] Blood Gas Inspired Oxygen 40 % Test 01/21/17 03:28 White Blood Count 13.2 TH/MM3 Red Blood Count 4.27 MIL/MM3 Hemoglobin 12.2 GM/DL Hematocrit 36.6 % Mean Corpuscular Volume 85.5 FL Mean Corpuscular Hemoglobin 28.6 PG Mean Corpuscular Hemoglobin 33.5 % Concent Red Cell Distribution Width 16.5 % Platelet Count 291 TH/MM3 Mean Platelet Volume 7.0 FL Neutrophils (%) (Auto) 76.4 % Lymphocytes (%) (Auto) 10.8 % Monocytes (%) (Auto) 9.7 % Eosinophils (%) (Auto) 2.6 % Basophils (%) (Auto) 0.5 % Neutrophils # (Auto) 10.1 TH/MM3 Lymphocytes # (Auto) 1.4 TH/MM3 Monocytes # (Auto) 1.3 TH/MM3 Eosinophils # (Auto) 0.3 TH/MM3 Basophils # (Auto) 0.1 TH/MM3 CBC Comment DIFF FINAL Differential Comment Imaging Last Impressions Head CT 01/20/17 0000 Signed Impressions: Service Date/Time: Friday, January 20, 2017 18:51 - CONCLUSION: No acute intracranial abnormality is identified. Femi Barron MD Objective Remarks GENERAL: Patient is 61 yo lying in bed in NAD off BIPAP SKIN: Warm and dry. HEAD: Normocephalic. EYES: No scleral icterus. No injection or drainage. NECK: Supple, trachea midline. No JVD or lymphadenopathy. CARDIOVASCULAR: Regular rate and rhythm without murmurs, gallops, or rubs. RESPIRATORY: Breath sounds equal bilaterally. No accessory muscle use. GASTROINTESTINAL: Abdomen soft, non-tender, nondistended. MUSCULOSKELETAL: Right AKA Neuro: Awake and alert. A/P Assessment and Plan 1)Resp Insuff 2)Severe anemia 3)ALFREDO- improved 4)s/p Right AKA 5)CHF/Cardiomyopathy with EF 25-30% 6)PVD 7)Hx breast ca Plan: Neuro: Monitor neuro and avoid any sedatives. CT brain in ED: No acute findings Pulm: Continue with oxygen and maintain sats > 92%. Bronchodilators, NIPPV PRN for resp distress CV: Monitor heart rate and blood pressure and maintain MAP >65mmHg Echo from 11/13: 25-30%. : Monitor renal function, Is and Os and avoid nephrotoxins. Diurese with Bumex 1mg IV x1 GI: Keep n.p.o. for now , on Protonix 40 mg IV daily for GI prophylaxis. GI consulted Heme: s/p transfusion 4 units of PRBCs. Monitor H/H keep Hgb > 8 Patient was seen by Dr. Wakefield - s/p right AKA, stump is clean and dry. ID: Given Vanco and Zosyn in ED Continue with abx(Zosyn) monitor for signs of infections( fever and WBC). Follow up on BC and urine cx from 01/20 Endo: SSI for glycemic control GI prophylaxis with Protonix 40 mg daily and DVT prophylaxis with SCDs to the left lower extremity. Not a candidate for AC prophylaxis given severe anemia on arrival. Patient is on room air oxygen seen by GI and refusing any procedures. H/H stable. Will sign off and transfer care to [facility] Level 3 Katty Rebolledo MD Jan 21, 2017 07:30
[2017-01-21] MEDS ORDERED: POTASSIUM CHLOR 40 MEQ PREMIX 100 ML IV PRN ×2 (07:45)
[2017-01-21] MEDS ORDERED: POTASSIUM PHOSPHATE MONOBASIC 500 MG TAB PO PRN (07:45)
[2017-01-21] MEDS ORDERED: POTASSIUM CHLORIDE 25 MEQ EFFERVESCENT TAB PO PRN (07:45)
[2017-01-21] MEDS ORDERED: BUMETANIDE INJ 1 MG/4 ML VIAL IV PUSH ONE (07:45)
[2017-01-21] MEDS ORDERED: SODIUM PHOSPHATE INJ 30 MMOL in SODIUM CHLOR 0.9% 250 ML INJ 240 ML IV PRN (07:45)
[2017-01-21] MEDS ORDERED: GLUCAGON 1 MG/ML VIAL OTHER PRN (07:45)
[2017-01-21] MEDS: INSULIN NovoLIN REGULAR SUPPLEMENTAL SCALE SQ SCH ×6 (07:45→23:30)
[2017-01-21] MEDS ORDERED: POTASSIUM PHOSPHATE MONOBASIC 500 MG TAB PO/TUBE PRN (07:45)
[2017-01-21] MEDS ORDERED: POTASSIUM PHOSPHATE INJ 30 MMOL in SODIUM CHLOR 0.9% 250 ML INJ 250 ML IV PRN (07:45)
[2017-01-21] MEDS ORDERED: MAGNESIUM OXIDE 400 MG TAB PO PRN (07:45)
[2017-01-21] MEDS ORDERED: POTASSIUM CHLOR 20 MEQ PREMIX 100 ML IV PRN ×2 (07:45)
[2017-01-21] MEDS ORDERED: DEXTROSE 50% IN WATER 50 ML VIAL(D50) IV PRN (07:45)
[2017-01-21] MEDS ORDERED: MAGNESIUM SULFATE INJ 2 GM in SODIUM CHLORIDE 0.9% INJ 96 ML IV PRN (07:45)
[2017-01-21] MEDS ORDERED: MAGNESIUM SULFATE INJ 4 GM in SODIUM CHLORIDE 0.9% INJ 92 ML IV PRN (07:45)
[2017-01-21] MEDS: PANTOPRAZOLE SODIUM 40 MG VIAL IV SCH (08:54)
--- NOTE | 2017-01-21 10:47 | PD.CAR.PN ---
CVT Progress Note Subjective/Hospital Course: Patient known to me from previous admissions Patient returns to Hospital pale, weak with hemoglobin of 5.8 g/dL Patient left the hospital with hemoglobin of 7 g/dL last week so I didn't take much to drop it 1 or 2 g. Patient is clearly very ill lady with decreased and suppress bone marrow production, on multiple medications and now received 1 L of saline which further diluted her. Patient is NOT bleeding from any source at this time, including her thigh. Stump is clean and dry and high is completely normal in size. This patient does NOT have hemorrhagic shock and no clinical parameters as to the same This patient is severely anemic with decreased oxygen carrying capacity and requires blood transfusion I have discussed this with Dr. Nava in the emergency room. 01/21/17 As stated yesterday patient does not have any bleeding into her thigh and amputation site is clean and dry Abdomen is soft with active bowel sounds Patient's anemia is likely attributable to decreased production in face of multiple medical problems including renal insufficiency Patient does not have hemorrhagic shock and this diagnosis should be changed in the system because this does not correlate with clinical findings Hemoglobin today is 12 g/dL and patient feels better Nothing to add to care this time Objective: Vital Signs Date Time Temp Pulse Resp B/P Pulse Ox O2 Delivery O2 Flow Rate FiO2 01/21/17 10:00 81 01/21/17 09:00 80 20 165/68 100 01/21/17 08:00 82 01/21/17 08:00 98.4 82 19 170/73 98 01/21/17 07:00 79 20 159/67 99 01/21/17 06:00 75 01/21/17 04:00 98.3 75 21 177/76 100 01/21/17 04:00 75 01/21/17 03:41 100 Nasal Cannula 1.00 01/21/17 02:00 66 01/21/17 00:00 64 01/21/17 00:00 98.6 65 19 114/54 100 01/21/17 00:00 100 40 01/20/17 22:00 61 01/20/17 20:00 98.1 59 21 87/49 100 01/20/17 20:00 59 01/20/17 19:39 100 40 01/20/17 19:14 98.1 64 20 110/53 100 01/20/17 18:32 98.1 58 14 102/51 100 BiPAP 35 01/20/17 18:28 98.1 57 13 86/46 100 BiPAP 35 01/20/17 17:45 98.4 55 10 88/48 100 BiPAP 35 01/20/17 17:30 100 35 01/20/17 16:55 98.0 57 10 70/37 98 BiPAP 01/20/17 16:25 98.4 59 87/51 BiPAP 35 01/20/17 16:20 59 87/51 100 BiPAP 35 01/20/17 15:43 100 40 01/20/17 15:43 100 BiPAP 40 01/20/17 15:17 62 10 87/48 90 Nasal Cannula 2 01/20/17 14:51 62 78/43 100 Nasal Cannula 2 01/20/17 14:35 98.0 66 16 60/30 94 Room Air Labs: Laboratory Tests Test 01/21/17 01/21/17 01/21/17 01:44 02:20 03:28 Sodium Level 143 MEQ/L (136-145) Potassium Level 4.3 MEQ/L (3.5-5.1) Chloride Level 107 MEQ/L (98-107) Carbon Dioxide Level 25.2 MEQ/L (21.0-32.0) Anion Gap 11 MEQ/L (5-15) Blood Urea Nitrogen 25 MG/DL (7-18) Creatinine 0.95 MG/DL (0.50-1.00) Estimat Glomerular Filtration 60 ML/MIN (>89) Rate Random Glucose 73 MG/DL (74-106) Calcium Level 8.1 MG/DL (8.5-10.1) Total Bilirubin 1.9 MG/DL (0.2-1.0) Aspartate Amino Transf 28 U/L (15-37) (AST/SGOT) Alanine Aminotransferase 14 U/L (10-53) (ALT/SGPT) Alkaline Phosphatase 53 U/L (45-117) Total Creatine Kinase 260 U/L (26-192) Creatine Kinase MB 13.3 NG/ML (0.5-3.6) Creatine Kinase MB % 5.1 % (0.0-4.0) Troponin I LESS THAN 0.02 NG/ML (0.02-0.05) Total Protein 6.1 GM/DL (6.4-8.2) Albumin 2.1 GM/DL (3.4-5.0) Blood Gas Puncture Site RT RADIAL Blood Gas Patient Temperature 98.6 Blood Gas HCO3 23 mmol/L (22-26) Blood Gas Base Excess -2.6 mmol/L (-2-2) Blood Gas Oxygen Saturation 95 % (90-100) Arterial Blood pH 7.32 (7.380-7.420) Arterial Blood Partial 45 mmHg (38-42) Pressure CO2 Arterial Blood Partial 170 mmHg Pressure O2 (61-120) Arterial Blood Oxygen Content 15.9 Vol % (12.0-20.0) Arterial Blood 3.0 % (0-4) Carboxyhemoglobin Arterial Blood Methemoglobin 1.5 % (0-2) Blood Gas Hemoglobin 11.7 G/DL (12.0-16.0) Oxygen Delivery Device BIPAP Blood Gas Ventilator Setting [id number] Blood Gas Inspired Oxygen 40 % White Blood Count 13.2 TH/MM3 (4.0-11.0) Red Blood Count 4.27 MIL/MM3 (4.00-5.30) Hemoglobin 12.2 GM/DL (11.6-15.3) Hematocrit 36.6 % (35.0-46.0) Mean Corpuscular Volume 85.5 FL (80.0-100.0) Mean Corpuscular Hemoglobin 28.6 PG (27.0-34.0) Mean Corpuscular Hemoglobin 33.5 % Concent (32.0-36.0) Red Cell Distribution Width 16.5 % (11.6-17.2) Platelet Count 291 TH/MM3 (150-450) Mean Platelet Volume 7.0 FL (7.0-11.0) Neutrophils (%) (Auto) 76.4 % (16.0-70.0) Lymphocytes (%) (Auto) 10.8 % (9.0-44.0) Monocytes (%) (Auto) 9.7 % (0.0-8.0) Eosinophils (%) (Auto) 2.6 % (0.0-4.0) Basophils (%) (Auto) 0.5 % (0.0-2.0) Neutrophils # (Auto) 10.1 TH/MM3 (1.8-7.7) Lymphocytes # (Auto) 1.4 TH/MM3 (1.0-4.8) Monocytes # (Auto) 1.3 TH/MM3 (0-0.9) Eosinophils # (Auto) 0.3 TH/MM3 (0-0.4) Basophils # (Auto) 0.1 TH/MM3 (0-0.2) CBC Comment DIFF FINAL Differential Comment Result Diagram: 01/21/17 0328 01/21/17 0144 Chantale Wakefield MD Jan 21, 2017 10:47
[2017-01-21 11:11] LABS: HEMATOCRIT 37.2 % (35.0-46.0); REVIEW FLAG FINAL
[2017-01-21 11:28] LABS: CREATINE KINASE 313 U/L (26-192)
--- NOTE | 2017-01-21 11:29 | PD.CONS ---
HPI History of Present Illness This is a pleasant 61 year old lady with hx DM, lupus, myeloproliferative disorder, CHF, complicated diverticulitis with colocutaneous fistula s/p colostomy, and recent right AKA who presented to hospital via ambulance after she became hypotensive at home. She was found to have hgb 5.8 on admission, heme neg stool. it is now 12.2 following 4 x PRBC. Her previous Hgb on 12/18 was 7. She had right AKA on 01/12/17. She says it has been oozing blood since then, it never stopped bleeding. She c/o that the stump is swollen. She denies tarry stool, blood in stool, hematemesis or history of those signs. She denies hx ulcers. She had a guiac 6m ago and said that was negative. last had EGD/colonoscopy 2011 and says colonoscopy was normal, and neither procedure found evidence of bleeding or other abnormal finding. She does have hx GERD which is why she had the EGD in 2011 but takes nothing for it and says it no longer bothers her. PFSH Past Medical History lupus osteoporosis myeloproliferative disorder DM ALFREDO CKD GERD colostomy complicated diverticulitis with colocutaneous fistula CHF Past Surgical History bilat mastectomy colostomy right AKA cholecystectomy CABG coronary stents hysterectomy tonsillectomy Coded Allergies: Bactrim (Verified Allergy, Severe, Shortness of Breath, 01/20/17) Iodine (Verified Allergy, Severe, THROAT SWELLS, 01/20/17) pt states does not have a allergy to Iodine 01/11/16 JF Penicillin (Verified Allergy, Severe, STOPPED BREATHING, 01/20/17) Shellfish (Verified Allergy, Severe, THROAT SWELLS, 01/20/17) *MDRO Multi-Drug Resistant Organism (Verified Adverse Reaction, Unknown, ) 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, wound - 01/04/17 MRSA (urine)-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 on 12/21/16 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 Family History mother - breast cancer father - from [place] Social History no ETOH, tobacco, or illicit drug use Review of Systems Constitutional: DENIES: Fever Eyes: DENIES: Blurred vision Ears, nose, mouth, throat: DENIES: Hearing loss Respiratory: DENIES: Cough Cardiovascular: DENIES: Chest pain Gastrointestinal: DENIES: Abdominal pain, Black stools, Bloody stools, Nausea, Heartburn, Hematemesis Genitourinary: DENIES: Hematuria Musculoskeletal: DENIES: Joint Swelling Integumentary: DENIES: Abnormal pigmentation Hematologic/lymphatic: DENIES: Bruising Neurologic: DENIES: Abnormal gait Psychiatric: DENIES: Confusion GI Exam Vitals I&O Vital Signs Date Time Temp Pulse Resp B/P Pulse Ox O2 Delivery O2 Flow Rate FiO2 01/21/17 10:43 98 01/21/17 10:00 81 01/21/17 09:00 80 20 165/68 100 01/21/17 08:00 82 01/21/17 08:00 98.4 82 19 170/73 98 01/21/17 07:00 79 20 159/67 99 01/21/17 06:00 75 01/21/17 04:00 98.3 75 21 177/76 100 01/21/17 04:00 75 01/21/17 03:41 100 Nasal Cannula 1.00 01/21/17 02:00 66 01/21/17 00:00 64 01/21/17 00:00 98.6 65 19 114/54 100 01/21/17 00:00 100 40 01/20/17 22:00 61 01/20/17 20:00 98.1 59 21 87/49 100 01/20/17 20:00 59 01/20/17 19:39 100 40 01/20/17 19:14 98.1 64 20 110/53 100 01/20/17 18:32 98.1 58 14 102/51 100 BiPAP 35 01/20/17 18:28 98.1 57 13 86/46 100 BiPAP 35 01/20/17 17:45 98.4 55 10 88/48 100 BiPAP 35 01/20/17 17:30 100 35 01/20/17 16:55 98.0 57 10 70/37 98 BiPAP 01/20/17 16:25 98.4 59 87/51 BiPAP 35 01/20/17 16:20 59 87/51 100 BiPAP 35 01/20/17 15:43 100 40 01/20/17 15:43 100 BiPAP 40 01/20/17 15:17 62 10 87/48 90 Nasal Cannula 2 01/20/17 14:51 62 78/43 100 Nasal Cannula 2 01/20/17 14:35 98.0 66 16 60/30 94 Room Air I/O 01/20/17 01/20/17 01/20/17 01/21/17 01/21/17 01/21/17 07:00 15:00 23:00 07:00 15:00 23:00 Intake Total 1449 ml 1227 ml Output Total 850 ml 2650 ml 1100 ml Balance 599 ml -1423 ml -1100 ml Intake Oral 480 ml IV Total 705 ml 193 ml Packed Cells 744 ml 554 ml Output Urine Total 850 ml 2650 ml 1100 ml # Bowel Movements 0 1 Imaging Last Impressions Head CT 01/20/17 0000 Signed Impressions: Service Date/Time: Friday, January 20, 2017 18:51 - CONCLUSION: No acute intracranial abnormality is identified. Femi Barron MD Laboratory Test 01/20/17 01/20/17 01/20/17 01/20/17 14:41 15:23 15:31 17:14 White Blood Count 12.0 TH/MM3 Red Blood Count 2.11 MIL/MM3 Hemoglobin 5.8 GM/DL Hematocrit 18.7 % Mean Corpuscular Volume 88.7 FL Mean Corpuscular Hemoglobin 27.3 PG Mean Corpuscular Hemoglobin 30.8 % Concent Red Cell Distribution Width 19.6 % Platelet Count 309 TH/MM3 Mean Platelet Volume 7.0 FL Neutrophils (%) (Auto) 59.7 % Lymphocytes (%) (Auto) 25.1 % Monocytes (%) (Auto) 12.2 % Eosinophils (%) (Auto) 2.3 % Basophils (%) (Auto) 0.7 % Neutrophils # (Auto) 7.2 TH/MM3 Lymphocytes # (Auto) 3.0 TH/MM3 Monocytes # (Auto) 1.5 TH/MM3 Eosinophils # (Auto) 0.3 TH/MM3 Basophils # (Auto) 0.1 TH/MM3 CBC Comment DIFF FINAL Differential Comment Prothrombin Time 11.4 SEC Prothromb Time International 1.0 RATIO Ratio Activated Partial 25.1 SEC Thromboplast Time Sodium Level 139 MEQ/L Potassium Level 4.9 MEQ/L Chloride Level 105 MEQ/L Carbon Dioxide Level 25.5 MEQ/L Anion Gap 9 MEQ/L Blood Urea Nitrogen 28 MG/DL Creatinine 1.36 MG/DL Estimat Glomerular Filtration 40 ML/MIN Rate Random Glucose 143 MG/DL Calcium Level 8.5 MG/DL Total Creatine Kinase 319 U/L Creatine Kinase MB 16.2 NG/ML Creatine Kinase MB % 5.1 % Troponin I 0.02 NG/ML Thyroid Stimulating Hormone 3.410 uIU/ML 3rd Gen Blood Type A POSITIVE Antibody Screen NEGATIVE Blood Gas Puncture Site LT RADIAL LT RADIAL Blood Gas Patient Temperature 98.6 98.6 Blood Gas HCO3 22 mmol/L 22 mmol/L Blood Gas Base Excess -4.5 mmol/L -4.2 mmol/L Blood Gas Oxygen Saturation 96 % 96 % Arterial Blood pH 7.25 7.27 Arterial Blood Partial 51 mmHg 49 mmHg Pressure CO2 Arterial Blood Partial 137 mmHG 147 mmHG Pressure O2 Arterial Blood Oxygen Content 8.8 Vol % 9.3 Vol % Arterial Blood 2.8 % 2.5 % Carboxyhemoglobin Arterial Blood Methemoglobin 0.5 % 0.7 % Blood Gas Hemoglobin 6.3 G/DL 6.6 G/DL Oxygen Delivery Device NASAL CANNULA BiPAP Blood Gas Liter Flow 3 L/M Crossmatch Leukocyte-Reduced Red Blood Cells Blood Bank Comment Blood Gas Ventilator Setting IPAP12/[id number] Blood Gas Inspired Oxygen 35 % Test 01/20/17 01/20/17 01/21/17 01/21/17 17:30 19:15 01:44 02:20 Urine Color YELLOW Urine Turbidity CLEAR Urine pH 5.0 Urine Specific [place] 1.010 Urine Protein NEG mg/dL Urine Glucose (UA) NEG mg/dL Urine Ketones NEG mg/dL Urine Occult Blood NEG Urine Nitrite NEG Urine Bilirubin NEG Urine Urobilinogen LESS THAN 2.0 MG/DL Urine Leukocyte Esterase NEG Urine RBC LESS THAN 1 /hpf Urine WBC 1 /hpf Urine Squamous Epithelial <1 /hpf Cells Urine Bacteria RARE /hpf Urine Hyaline Casts 5 /lpf Urine Mucus FEW /lpf Microscopic Urinalysis Comment CATH-CULTURE IND Nasal Screen MRSA (PCR) MRSA NOT DETECTED Sodium Level 143 MEQ/L Potassium Level 4.3 MEQ/L Chloride Level 107 MEQ/L Carbon Dioxide Level 25.2 MEQ/L Anion Gap 11 MEQ/L Blood Urea Nitrogen 25 MG/DL Creatinine 0.95 MG/DL Estimat Glomerular Filtration 60 ML/MIN Rate Random Glucose 73 MG/DL Calcium Level 8.1 MG/DL Total Bilirubin 1.9 MG/DL Aspartate Amino Transf 28 U/L (AST/SGOT) Alanine Aminotransferase 14 U/L (ALT/SGPT) Alkaline Phosphatase 53 U/L Total Creatine Kinase 260 U/L Creatine Kinase MB 13.3 NG/ML Creatine Kinase MB % 5.1 % Troponin I LESS THAN 0.02 NG/ML Total Protein 6.1 GM/DL Albumin 2.1 GM/DL Blood Gas Puncture Site RT RADIAL Blood Gas Patient Temperature 98.6 Blood Gas HCO3 23 mmol/L Blood Gas Base Excess -2.6 mmol/L Blood Gas Oxygen Saturation 95 % Arterial Blood pH 7.32 Arterial Blood Partial 45 mmHg Pressure CO2 Arterial Blood Partial 170 mmHg Pressure O2 Arterial Blood Oxygen Content 15.9 Vol % Arterial Blood 3.0 % Carboxyhemoglobin Arterial Blood Methemoglobin 1.5 % Blood Gas Hemoglobin 11.7 G/DL Oxygen Delivery Device BIPAP Blood Gas Ventilator Setting [id number] Blood Gas Inspired Oxygen 40 % Test 01/21/17 03:28 White Blood Count 13.2 TH/MM3 Red Blood Count 4.27 MIL/MM3 Hemoglobin 12.2 GM/DL Hematocrit 36.6 % Mean Corpuscular Volume 85.5 FL Mean Corpuscular Hemoglobin 28.6 PG Mean Corpuscular Hemoglobin 33.5 % Concent Red Cell Distribution Width 16.5 % Platelet Count 291 TH/MM3 Mean Platelet Volume 7.0 FL Neutrophils (%) (Auto) 76.4 % Lymphocytes (%) (Auto) 10.8 % Monocytes (%) (Auto) 9.7 % Eosinophils (%) (Auto) 2.6 % Basophils (%) (Auto) 0.5 % Neutrophils # (Auto) 10.1 TH/MM3 Lymphocytes # (Auto) 1.4 TH/MM3 Monocytes # (Auto) 1.3 TH/MM3 Eosinophils # (Auto) 0.3 TH/MM3 Basophils # (Auto) 0.1 TH/MM3 CBC Comment DIFF FINAL Differential Comment Date/Time Procedure Status Source Growth 01/20/17 17:40 Aerobic Blood Culture Received Blood Peripheral Pending 01/20/17 17:40 Anaerobic Blood Culture Received Blood Peripheral Pending 01/20/17 17:30 Urine Culture Received Urine Catheterized Urine Pending Physical Examination HEENT: PERRL; normocephalic; atraumatic; no jaundice. CHEST: CTA CARDIAC: RRR ABDOMEN: Soft, nondistended, nontender, scar tissue, colostomy; no hepatosplenomegaly; bowel sounds are present in all four quadrants. EXTREMITIES: No clubbing, cyanosis, right stump appears edematous, no bruising seen. bandage clean. SKIN: Normal; no rash; no jaundice. 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 Assessment and Plan Plan ASSESSMENT - anemia - 5.8 on admission. on 01/18 was 7. pt reports constant oozing of right AKA, hx myeloproliferative disorder. No hx ulcers. Denies melena, hematochezia, hematemesis. HH 12.2 after receiving blood. Last EGD/colonoscopy 2011, no bleeding. Pt does not want procedures at this time. - colostomy, hx complicated diverticulitis and colocutaneous fistula PLAN - monitor HH - transfuse PRN - supportive care - pt does not want procedures, GI will sign off. Please reconsult as needed This pt seen by myself and DR Chapa and this note is written on his behalf. Meghann Rios Jan 21, 2017 11:29
[2017-01-21 11:41] LABS: CKMB 9.6 NG/ML (0.5-3.6)
[2017-01-21] MEDS ORDERED: MORPHINE SULFATE 4 MG/ML INJ IV PUSH ONE (12:00)
[2017-01-21] MEDS ORDERED: HYDROmorphone HCL PF 1 MG/ML VIAL IV PUSH ONE ×2 (13:45→17:30)
--- NOTE | 2017-01-21 17:19 | EKG ---
Date Performed: 01/20/2017 Time Performed: 14:45:28 PTAGE: 61 years EKG: Sinus rhythm INFERIOR MYOCARDIAL INFARCTION ABNORMAL ECG PREVIOUS TRACING : 01/10/2017 20.54 Compared to previous tracing, the R wave progression has re turned to normal. Likely secondary to lead placement. Clinical correlation requested. DOCTOR: Mercedes Aly Interpretating Date/Time 01/21/2017 17:15:16
[2017-01-21 17:48] LABS: HEMATOCRIT 38.3 % (35.0-46.0); REVIEW FLAG FINAL
[2017-01-21] MEDS: HYDROmorphone HCL PF 1 MG/ML VIAL IV PRN (22:18)
[2017-01-22] VITALS (12 sets, daily range): BP systolic 94–138; BP diastolic 52–74; PULSE 78–99; RESP 18–20; TEMP 98.3–98.8; O2SAT 94–99
[2017-01-22] MEDS: PIPERACIL-TAZO 3.375 GM PREMIX 50 ML IV SCH ×4 (00:41→18:47)
[2017-01-22] MEDS: HYDROmorphone HCL PF 1 MG/ML VIAL IV PRN ×4 (01:18→11:10)
[2017-01-22 01:28] LABS: HEMATOCRIT 39.7 % (35.0-46.0); REVIEW FLAG FINAL
[2017-01-22] MEDS: MORPHINE SULFATE 15 MG TAB PO PRN ×6 (01:54→22:14)
[2017-01-22 02:35] LABS: HEMATOCRIT 39.8 % (35.0-46.0); REVIEW FLAG FINAL
[2017-01-22] MEDS: RESP: ALBUTEROL 2.5 MG/IPRATROPIUM 0.5 MG NEB (SCH) INH ×4 (03:26→20:33)
[2017-01-22] MEDS: INSULIN NovoLIN REGULAR SUPPLEMENTAL SCALE SQ SCH ×2 (03:30→04:40)
[2017-01-22] MEDS: CHLORHEXIDINE GLUCONATE 2 % 1 PACK (2 CLOTHS) TOP SCH (03:37)
[2017-01-22 06:12] LABS: AUTOMATED NEUTROPHIL # 7.5 TH/MM3 (1.8-7.7); BASOPHIL # 0.1 TH/MM3 (0-0.2); BASOPHIL % 0.6 % (0.0-2.0); EOSINOPHIL # 0.7 TH/MM3 (0-0.4); HEMATOCRIT 38.8 % (35.0-46.0); HEMO FLAGS DIFF FINAL; LYMPH % 16.9 % (9.0-44.0); LYMPHOCYTE # 2.1 TH/MM3 (1.0-4.8); MEAN CELL VOLUME 84.4 FL (80.0-100.0); MEAN CORPUSCULAR HEMOGLOBIN 28.9 PG (27.0-34.0); MEAN CORPUSCULAR HGB CONC 34.3 % (32.0-36.0); MONO % 15.6 % (0.0-8.0); NEUT % 60.9 % (16.0-70.0); PLATELET COUNT 276 TH/MM3 (150-450); RED CELL DISTRIBUTION WIDTH 16.7 % (11.6-17.2); WHITE BLOOD COUNT 12.4 TH/MM3 (4.0-11.0)
[2017-01-22 06:28] LABS: BICARBONATE 29.4 MEQ/L (21.0-32.0); MAGNESIUM 1.3 MG/DL (1.5-2.5); POTASSIUM 3.5 MEQ/L (3.5-5.1)
[2017-01-22] MEDS: PANTOPRAZOLE SODIUM 40 MG VIAL IV SCH (07:57)
--- NOTE | 2017-01-22 08:01 | HHI.PR ---
Subjective Remarks Follow-up anemia. No gross bleeding. She is still refusing EGD. Patient refused physical therapy stating she needs her boot to be able to get out of bed. States she she has to get out of bed to wheelchair before being discharged to home. She is okay to be discharged to SNF if she has benefits. States her is not able to assist her. Physical therapy recommends rehabilitation. Requesting regular diet as she develops hypoglycemia with ADA. Told I will stop IV pain meds. Discussed with RN and case management Objective Vitals Vital Signs Date Time Temp Pulse Resp B/P Pulse Ox O2 Delivery O2 Flow Rate FiO2 01/22/17 06:00 84 01/22/17 05:00 80 01/22/17 04:00 80 01/22/17 03:27 94 21 01/22/17 03:00 79 01/22/17 03:00 98.3 78 18 125/64 99 01/22/17 02:03 82 01/22/17 01:48 18 01/22/17 01:00 81 01/22/17 00:15 81 01/21/17 23:55 97.5 84 18 134/80 98 01/21/17 22:00 82 01/21/17 21:59 18 01/21/17 20:00 86 01/21/17 20:00 99.3 86 18 98/57 94 01/21/17 19:26 93 21 01/21/17 18:00 97 01/21/17 17:00 87 21 113/55 94 01/21/17 16:00 98.5 91 27 104/51 94 01/21/17 16:00 91 01/21/17 15:00 94 27 108/56 94 01/21/17 14:00 88 18 136/65 95 01/21/17 14:00 88 01/21/17 13:00 87 23 94 01/21/17 12:00 85 01/21/17 12:00 98.3 85 28 165/89 98 01/21/17 11:00 83 29 162/78 97 01/21/17 10:43 98 01/21/17 10:00 81 01/21/17 10:00 81 22 159/70 95 01/21/17 09:00 80 20 165/68 100 01/21/17 08:00 82 01/21/17 08:00 98.4 82 19 170/73 98 I/O 01/21/17 01/21/17 01/21/17 01/22/17 01/22/17 01/22/17 07:00 15:00 23:00 07:00 15:00 23:00 Intake Total 1227 ml 580 ml 709 ml 240 ml Output Total 2650 ml 3700 ml 1150 ml 650 ml Balance -1423 ml -3120 ml -441 ml -410 ml Intake Oral 480 ml 480 ml 600 ml 240 ml IV Total 193 ml 100 ml 109 ml Packed Cells 554 ml Output Urine Total 2650 ml 3700 ml 1150 ml 650 ml # Bowel Movements 1 1 Result Diagram: 01/22/17 0544 01/22/17 0544 Imaging Last Impressions Head CT 01/20/17 0000 Signed Impressions: Service Date/Time: Friday, January 20, 2017 18:51 - CONCLUSION: No acute intracranial abnormality is identified. Femi Barron MD Chest X-Ray 01/20/17 0000 Signed Impressions: Service Date/Time: Friday, January 20, 2017 16:17 - CONCLUSION: Persistent diffuse increased interstitial markings likely representing some edema. These findings appear less prominent than they did on the prior exam. Femi Camejo MD Objective Remarks GENERAL: Patient is 61 yo lying in bed in NAD SKIN: Warm and dry. HEAD: Normocephalic. EYES: No scleral icterus. No injection or drainage. NECK: Supple, trachea midline. No JVD or lymphadenopathy. CARDIOVASCULAR: Regular rate and rhythm without murmurs, gallops, or rubs. RESPIRATORY: Breath sounds equal bilaterally. No accessory muscle use. GASTROINTESTINAL: Abdomen soft, non-tender, nondistended. Colostomy in place MUSCULOSKELETAL: Right AKA stump clear of infection Neuro: Awake and alert. Procedures none A/P Problem List: (1) Anemia due to acute blood loss ICD Code: D62 Status: Acute (2) Diabetes mellitus ICD Code: E11.9 Status: Chronic Assessment and Plan 1)Resp failure. Resolved off BiPAP 2)Severe anemia secondary to acute blood loss. Improved with 4 units of packed RBC. Repeat CBC in the morning. Refusing EGD 3)ALFREDO- improved. Discontinue Avendano catheter 4)s/p Right AKA . Wound care. Continue physical therapy 5)CHF/Cardiomyopathy with EF 25-30%. Stable. CHF education, I/O and monitor weight 6)PVD. Stable restart aspirin if okay with vascular surgery 7)diabetes mellitus. Monitor fingersticks with sliding scale coverage. Restart metformin. 8)Leukocytosis. Blood cultures negative to date. Pending urine culture. Status post vancomycin. Consider stopping Zosyn 9) hypokalemia and hypomagnesemia. Replace potassium and magnesium. Repeat magnesium and potassium in the morning 10)Med rec completed 11)Colostomy care. Discontinue Avendano catheter GI prophylaxis with PPI. DVT prophylaxis with SCD and out of bed. Not a candidate for AC prophylaxis given severe anemia on arrival. Discharge Planning Discharge to SNF. Not safe for home discharge at this time Clinton Potter MD Jan 22, 2017 08:01 Heme: s/p transfusion 4 units of PRBCs. Monitor H/H keep Hgb > 8 Patient was seen by Dr. Wakefield - s/p right AKA, stump is clean and dry. ID: Given Vanco and Zosyn in ED Continue with abx(Zosyn) monitor for signs of infections( fever and WBC). Follow up on BC and urine cx from 01/20 Endo: SSI for glycemic control GI prophylaxis with Protonix 40 mg daily and DVT prophylaxis with SCDs to the left lower extremity. Not a candidate for AC prophylaxis given severe anemia on arrival. Patient is on room air oxygen seen by GI and refusing any procedures. H/H stable. Clinton Potter MD Jan 22, 2017 08:01
[2017-01-22] MEDS ORDERED: POTASSIUM CHLORIDE 20 MEQ CONTROLLED RELEASE TAB PO ONE (08:15)
[2017-01-22] MEDS: MAGNESIUM SULFATE 1 GM PREMIX 100 ML IV SCH ×2 (10:00→11:10)
[2017-01-22] MEDS: PANTOPRAZOLE SOD 40 MG DELAYED RELEASE TAB PO SCH (10:00)
[2017-01-22] MEDS: INSULIN ASPART SUPPLEMENTAL SCALE SQ SCH ×3 (10:53→21:00)
--- NOTE | 2017-01-22 11:13 | PD.CAR.PN ---
CVT Progress Note Subjective/Hospital Course: Patient known to me from previous admissions Patient returns to Hospital pale, weak with hemoglobin of 5.8 g/dL Patient left the hospital with hemoglobin of 7 g/dL last week so I didn't take much to drop it 1 or 2 g. Patient is clearly very ill lady with decreased and suppress bone marrow production, on multiple medications and now received 1 L of saline which further diluted her. Patient is NOT bleeding from any source at this time, including her thigh. Stump is clean and dry and high is completely normal in size. This patient does NOT have hemorrhagic shock and no clinical parameters as to the same This patient is severely anemic with decreased oxygen carrying capacity and requires blood transfusion I have discussed this with Dr. Nava in the emergency room. 01/21/17 As stated yesterday patient does not have any bleeding into her thigh and amputation site is clean and dry Abdomen is soft with active bowel sounds Patient's anemia is likely attributable to decreased production in face of multiple medical problems including renal insufficiency Patient does not have hemorrhagic shock and this diagnosis should be changed in the system because this does not correlate with clinical findings Hemoglobin today is 12 g/dL and patient feels better Nothing to add to care this time 01/22/17 Stump clean and dry Hemoglobin stable Nothing to add to care at this time Would encourage to change the admitting diagnosis for hemorrhagic shock to something that is actually correct like anemia renal failure etc. Objective: Vital Signs Date Time Temp Pulse Resp B/P Pulse Ox O2 Delivery O2 Flow Rate FiO2 01/22/17 08:40 20 01/22/17 08:04 98.7 84 18 126/71 98 01/22/17 07:30 18 01/22/17 06:00 84 01/22/17 05:00 80 01/22/17 04:00 80 01/22/17 03:27 94 21 01/22/17 03:00 79 01/22/17 03:00 98.3 78 18 125/64 99 01/22/17 02:03 82 01/22/17 01:00 81 01/22/17 00:15 81 01/21/17 23:55 97.5 84 18 134/80 98 01/21/17 22:00 82 01/21/17 20:00 86 01/21/17 20:00 99.3 86 18 98/57 94 6/20/17 19:26 93 21 01/21/17 18:00 97 01/21/17 17:00 87 21 113/55 94 01/21/17 16:00 98.5 91 27 104/51 94 01/21/17 16:00 91 01/21/17 15:00 94 27 108/56 94 01/21/17 14:00 88 18 136/65 95 01/21/17 14:00 88 01/21/17 13:00 87 23 94 01/21/17 12:00 85 01/21/17 12:00 98.3 85 28 165/89 98 Labs: Laboratory Tests Test 01/22/17 01/22/17 01/22/17 01:06 02:23 05:44 Hemoglobin 13.3 GM/DL 13.6 GM/DL 13.3 GM/DL (11.6-15.3) (11.6-15.3) (11.6-15.3) Hematocrit 39.7 % 39.8 % 38.8 % (35.0-46.0) (35.0-46.0) (35.0-46.0) White Blood Count 12.4 TH/MM3 (4.0-11.0) Red Blood Count 4.60 MIL/MM3 (4.00-5.30) Mean Corpuscular Volume 84.4 FL (80.0-100.0) Mean Corpuscular Hemoglobin 28.9 PG (27.0-34.0) Mean Corpuscular Hemoglobin 34.3 % Concent (32.0-36.0) Red Cell Distribution Width 16.7 % (11.6-17.2) Platelet Count 276 TH/MM3 (150-450) Mean Platelet Volume 6.9 FL (7.0-11.0) Neutrophils (%) (Auto) 60.9 % (16.0-70.0) Lymphocytes (%) (Auto) 16.9 % (9.0-44.0) Monocytes (%) (Auto) 15.6 % (0.0-8.0) Eosinophils (%) (Auto) 6.0 % (0.0-4.0) Basophils (%) (Auto) 0.6 % (0.0-2.0) Neutrophils # (Auto) 7.5 TH/MM3 (1.8-7.7) Lymphocytes # (Auto) 2.1 TH/MM3 (1.0-4.8) Monocytes # (Auto) 1.9 TH/MM3 (0-0.9) Eosinophils # (Auto) 0.7 TH/MM3 (0-0.4) Basophils # (Auto) 0.1 TH/MM3 (0-0.2) CBC Comment DIFF FINAL Differential Comment Sodium Level 136 MEQ/L (136-145) Potassium Level 3.5 MEQ/L (3.5-5.1) Chloride Level 97 MEQ/L (98-107) Carbon Dioxide Level 29.4 MEQ/L (21.0-32.0) Anion Gap 10 MEQ/L (5-15) Blood Urea Nitrogen 18 MG/DL (7-18) Creatinine 0.86 MG/DL (0.50-1.00) Estimat Glomerular Filtration 67 ML/MIN (>89) Rate Random Glucose 117 MG/DL (74-106) Calcium Level 8.6 MG/DL (8.5-10.1) Phosphorus Level 3.0 MG/DL (2.5-4.9) Magnesium Level 1.3 MG/DL (1.5-2.5) Result Diagram: 01/22/17 0544 01/22/17 0544 Chantale Wakefield MD Jan 22, 2017 11:12
[2017-01-22] MEDS ORDERED: MSIR15 PO (12:29)
--- NOTE | 2017-01-22 12:30 | HHI.DCPOC ---
Discharge Care Plan Diagnosis: (1) Anemia due to acute blood loss Your Health Problems Are: Difficulty with ADL Exercise Tolerance Goals to Promote Your Health * To prevent worsening of your condition and complications * To maintain your health at the optimal level Directions to Meet Your Goals Take your medications as prescribed Follow your dietary instruction Follow activity as directed Keep your appointments as scheduled Take your immunizations and boosters as scheduled If your symptoms worsen call your PCP, if no PCP go to Urgent Care Center or Emergency Room Smoking is Dangerous to Your Health. Avoid second hand smoke Call the 24-hour hour crisis hotline for domestic abuse at Clinton Potter MD Jan 22, 2017 12:30
[2017-01-22] MEDS: GABAPENTIN 300 MG CAP PO SCH (18:35)
[2017-01-22] MEDS: metFORMIN HCL 500 MG TAB PO SCH (18:35)
[2017-01-22] MEDS ORDERED: HYDROmorphone HCL PF 1 MG/ML VIAL IV PUSH ONE (21:00)
[2017-01-22] MEDS: CARVEDILOL 6.25 MG TAB PO SCH (21:06)
[2017-01-22] MEDS: DULoxetine HCl DR 60 MG CAP PO SCH (21:06)
[2017-01-22] MEDS: MONTELUKAST SODIUM 10 MG TAB PO SCH (21:06)
[2017-01-22] MEDS: ATORVASTATIN 40 MG TAB PO SCH (21:06)
[2017-01-22] MEDS: MAGNESIUM HYDROXIDE SUSP 30 ML CUP PO PRN (22:17)
[2017-01-23] VITALS (21 sets, daily range): BP systolic 91–125; BP diastolic 51–74; PULSE 72–91; RESP 18–20; TEMP 98.5–99; O2SAT 96–99
[2017-01-23] MEDS: PIPERACIL-TAZO 3.375 GM PREMIX 50 ML IV SCH ×3 (00:23→12:00)
[2017-01-23] MEDS: GABAPENTIN 300 MG CAP PO SCH ×5 (00:23→23:44)
[2017-01-23] MEDS: CHLORHEXIDINE GLUCONATE 2 % 1 PACK (2 CLOTHS) TOP SCH (00:28)
[2017-01-23] MEDS: MORPHINE SULFATE 15 MG TAB PO PRN ×5 (02:13→21:22)
[2017-01-23] MEDS: RESP: ALBUTEROL 2.5 MG/IPRATROPIUM 0.5 MG NEB (SCH) INH ×4 (03:27→21:05)
[2017-01-23] MEDS: INSULIN ASPART SUPPLEMENTAL SCALE SQ SCH ×4 (05:14→21:00)
[2017-01-23 06:39] LABS: AUTOMATED NEUTROPHIL # 5.5 TH/MM3 (1.8-7.7); BASOPHIL # 0.1 TH/MM3 (0-0.2); BASOPHIL % 0.7 % (0.0-2.0); EOSINOPHIL # 0.8 TH/MM3 (0-0.4); EOSINOPHIL % 7.6 % (0.0-4.0); HEMATOCRIT 41.3 % (35.0-46.0); HEMO FLAGS DIFF FINAL; LYMPH % 23.1 % (9.0-44.0); LYMPHOCYTE # 2.4 TH/MM3 (1.0-4.8); MEAN CELL VOLUME 86.6 FL (80.0-100.0); MEAN CORPUSCULAR HGB CONC 33.5 % (32.0-36.0); MONO % 15.1 % (0.0-8.0); NEUT % 53.5 % (16.0-70.0); PLATELET COUNT 292 TH/MM3 (150-450); RED BLOOD COUNT 4.77 MIL/MM3 (4.00-5.30); WHITE BLOOD COUNT 10.2 TH/MM3 (4.0-11.0)
[2017-01-23 06:45] LABS: MAGNESIUM 1.8 MG/DL (1.5-2.5); POTASSIUM 3.8 MEQ/L (3.5-5.1)
[2017-01-23] MEDS: CARVEDILOL 6.25 MG TAB PO SCH ×2 (09:00→21:00)
[2017-01-23] MEDS: DULoxetine HCl DR 60 MG CAP PO SCH ×2 (09:07→21:21)
[2017-01-23] MEDS: AMIODARONE 200 MG TAB PO SCH (09:07)
[2017-01-23] MEDS: ASPIRIN 81 MG CHEW TAB PO SCH (09:08)
[2017-01-23] MEDS: metFORMIN HCL 500 MG TAB PO SCH ×2 (09:08→17:22)
[2017-01-23] MEDS: PANTOPRAZOLE SOD 40 MG DELAYED RELEASE TAB PO SCH (09:08)
[2017-01-23] MEDS: CHOLECALCIFEROL (VIT D3) 5000 UNIT CAP PO SCH (09:08)
--- NOTE | 2017-01-23 09:15 | HHI.PR ---
Subjective Remarks Follow-up anemia. Patient requesting stronger pain medicine for right lower extremity stump. Discussed with RN. Also discussed with GI PRISON LIBRARIAN patient wants to proceed with endoscopy Objective Vitals Vital Signs Date Time Temp Pulse Resp B/P Pulse Ox O2 Delivery O2 Flow Rate FiO2 01/23/17 08:31 96 01/23/17 03:00 98.8 91 18 125/72 96 01/23/17 03:00 88 01/22/17 23:00 89 01/22/17 23:00 98.8 92 18 94/52 95 01/22/17 20:00 99 01/22/17 20:00 98.6 96 18 138/71 98 01/22/17 12:00 98.8 93 20 125/74 96 01/22/17 12:00 80 I/O 01/22/17 01/22/17 01/22/17 01/23/17 01/23/17 01/23/17 07:00 15:00 23:00 07:00 15:00 23:00 Intake Total 240 ml 800 ml Output Total 650 ml 400 ml Balance -410 ml 400 ml Intake Oral 240 ml 800 ml Output Urine Total 650 ml 400 ml Result Diagram: 01/23/1752101/23/17521 Objective Remarks GENERAL: Patient is 61 yo lying in bed in NAD SKIN: Warm and dry. HEAD: Normocephalic. EYES: No scleral icterus. No injection or drainage. NECK: Supple, trachea midline. No JVD or lymphadenopathy. CARDIOVASCULAR: Regular rate and rhythm without murmurs, gallops, or rubs. RESPIRATORY: Breath sounds equal bilaterally. No accessory muscle use. GASTROINTESTINAL: Abdomen soft, non-tender, nondistended. Colostomy in place MUSCULOSKELETAL: Right AKA stump clear of infection Neuro: Awake and alert. Procedures none A/P Problem List: (1) Anemia due to acute blood loss ICD Code: D62 Status: Acute (2) Diabetes mellitus ICD Code: E11.9 Status: Chronic Assessment and Plan 1)Resp failure. Resolved off BiPAP 2)Severe anemia secondary to acute blood loss. Improved with 4 units of packed RBC. Repeat CBC in the morning. Okay to proceed with endoscopy GI alerted 3)ALFREDO- improved. Discontinue Avendano catheter 4)s/p Right AKA . Wound care. Continue physical therapy. Continue pain management including Neurontin. IV Dilaudid for 2 days only. Patient counseled 5)CHF/Cardiomyopathy with EF 25-30%. Stable. CHF education, I/O and monitor weight 6)PVD. Stable restart aspirin 7)diabetes mellitus. Monitor fingersticks with sliding scale coverage. Stable continue metformin. 8)Leukocytosis. Resolved. Blood cultures negative to date. Pending urine culture negative to date. Status post vancomycin. Discontinue Zosyn 9) hypokalemia and hypomagnesemia. Replace potassium and magnesium. Repeat magnesium and potassium improved 10)Colostomy care. Discontinue Avendano catheter GI prophylaxis with PPI. DVT prophylaxis with SCD and out of bed. Not a candidate for AC prophylaxis given severe anemia on arrival. Discharge Planning Discharge to SNF. Not safe for home discharge at this time Clinton Potter MD Jan 23, 2017 09:14
[2017-01-23] MEDS ORDERED: HYDROmorphone HCL PF 1 MG/ML VIAL IV PUSH PRN (15:15)
--- NOTE | 2017-01-23 15:36 | HHI.GIFU ---
Subjective Remarks Pt resting in bed, RN at bedside removing stitches. Pt now agrees to upper endoscopy. No abd pain, n/v, blood in stool. Admits bleeding from right AKA, blood on gauze. Objective Vitals I&O Vital Signs Date Time Temp Pulse Resp B/P Pulse Ox O2 Delivery O2 Flow Rate FiO2 01/23/17 14:14 18 01/23/17 12:00 98.6 78 18 96/55 96 01/23/17 11:00 83 01/23/17 10:00 80 01/23/17 09:00 74 01/23/17 08:31 96 01/23/17 08:00 98.5 81 18 91/51 99 01/23/17 08:00 72 01/23/17 07:00 77 01/23/17 03:00 98.8 91 18 125/72 96 01/23/17 03:00 88 01/22/17 23:00 89 01/22/17 23:00 98.8 92 18 94/52 95 01/22/17 20:00 99 01/22/17 20:00 98.6 96 18 138/71 98 I/O 01/22/17 01/22/17 01/22/17 01/23/17 01/23/17 01/23/17 07:00 15:00 23:00 07:00 15:00 23:00 Intake Total 240 ml 800 ml Output Total 650 ml 400 ml Balance -410 ml 400 ml Intake Oral 240 ml 800 ml Output Urine Total 650 ml 400 ml Laboratory Laboratory Tests Test 01/23/17 05:22 White Blood Count 10.2 Red Blood Count 4.77 Hemoglobin 13.8 Hematocrit 41.3 Mean Corpuscular Volume 86.6 Mean Corpuscular Hemoglobin 29.0 Mean Corpuscular Hemoglobin 33.5 Concent Red Cell Distribution Width 17.0 Platelet Count 292 Mean Platelet Volume 7.0 Neutrophils (%) (Auto) 53.5 Lymphocytes (%) (Auto) 23.1 Monocytes (%) (Auto) 15.1 Eosinophils (%) (Auto) 7.6 Basophils (%) (Auto) 0.7 Neutrophils # (Auto) 5.5 Lymphocytes # (Auto) 2.4 Monocytes # (Auto) 1.5 Eosinophils # (Auto) 0.8 Basophils # (Auto) 0.1 CBC Comment DIFF FINAL Differential Comment Sodium Level 135 Potassium Level 3.8 Chloride Level 96 Carbon Dioxide Level 27.0 Anion Gap 12 Blood Urea Nitrogen 16 Creatinine 0.73 Estimat Glomerular Filtration 81 Rate Random Glucose 134 Calcium Level 8.8 Magnesium Level 1.8 Date/Time Procedure Status Source Growth 01/20/17 17:40 Aerobic Blood Culture - Preliminary Resulted Blood Peripheral NO GROWTH IN 3 DAYS 01/20/17 17:40 Anaerobic Blood Culture - Preliminary Resulted Blood Peripheral NO GROWTH IN 3 DAYS 01/20/17 17:30 Urine Culture - Final Complete Urine Catheterized Urine NO GROWTH IN 48 HOURS. Imaging Last Impressions Head CT 01/20/17 0000 Signed Impressions: Service Date/Time: Friday, January 20, 2017 18:51 - CONCLUSION: No acute intracranial abnormality is identified. Femi Barron MD Chest X-Ray 01/20/17 0000 Signed Impressions: Service Date/Time: Friday, January 20, 2017 16:17 - CONCLUSION: Persistent diffuse increased interstitial markings likely representing some edema. These findings appear less prominent than they did on the prior exam. Femi Camejo MD Physical Exam HEENT: PERRL; normocephalic; atraumatic; no jaundice. CHEST: CTA CARDIAC: RRR ABDOMEN: Soft, nondistended, nontender; no hepatosplenomegaly; bowel sounds are present in all four quadrants. Colostomy bag, no blood visualized EXTREMITIES: No clubbing, cyanosis, or edema. Right AKA, no bleeding seen. SKIN: Normal; no rash; no jaundice. CHANGE MANAGEMENT CONSULTANT: No focal deficits; alert and oriented times three. Assessment and Plan Plan ASSESSMENT - anemia - 5.8 on admission. on 01/18 was 7. Now WNL and stable, received transfustion 01/20. pt reports constant oozing of right AKA, hx myeloproliferative disorder. No hx ulcers. Denies melena, hematochezia, hematemesis. Last EGD/ colonoscopy 2011, no bleeding. Pt agrees to EGD only; no colonoscopy. - colostomy, hx complicated diverticulitis and colocutaneous fistula PLAN - EGD tomorrow - obtain consents - NPO after midnight - monitor HH - transfuse PRN - supportive care - further recommendations based in results above This pt seen by myself and DR Chapa and this note is written on his behalf. Meghann Rios Jan 23, 2017 15:36
[2017-01-23] MEDS: MAGNESIUM HYDROXIDE SUSP 30 ML CUP PO PRN (18:20)
[2017-01-23] MEDS ORDERED: HYDROmorphone HCL PF 1 MG/ML VIAL IV PUSH ONE ×2 (20:30→23:30)
[2017-01-23] MEDS: MONTELUKAST SODIUM 10 MG TAB PO SCH (21:21)
[2017-01-23] MEDS: ATORVASTATIN 40 MG TAB PO SCH (21:21)
[2017-01-24] VITALS (17 sets, daily range): BP systolic 95–139; BP diastolic 56–88; PULSE 73–91; RESP 17–20; TEMP 97.4–99.2; O2SAT 94–100
[2017-01-24] MEDS: MORPHINE SULFATE 15 MG TAB PO PRN ×6 (01:12→23:56)
[2017-01-24] MEDS: RESP: ALBUTEROL 2.5 MG/IPRATROPIUM 0.5 MG NEB (SCH) INH ×4 (04:00→21:15)
[2017-01-24] MEDS: CHLORHEXIDINE GLUCONATE 2 % 1 PACK (2 CLOTHS) TOP SCH (04:00)
[2017-01-24] MEDS: GABAPENTIN 300 MG CAP PO SCH ×2 (06:17→11:10)
[2017-01-24] MEDS: INSULIN ASPART SUPPLEMENTAL SCALE SQ SCH ×4 (06:19→20:00)
[2017-01-24] MEDS: metFORMIN HCL 500 MG TAB PO SCH ×2 (08:10→18:19)
[2017-01-24] MEDS: CHOLECALCIFEROL (VIT D3) 5000 UNIT CAP PO SCH (08:10)
[2017-01-24] MEDS: PANTOPRAZOLE SOD 40 MG DELAYED RELEASE TAB PO SCH (08:10)
[2017-01-24] MEDS: DULoxetine HCl DR 60 MG CAP PO SCH ×2 (08:10→23:56)
[2017-01-24] MEDS: AMIODARONE 200 MG TAB PO SCH (08:11)
[2017-01-24] MEDS: CARVEDILOL 6.25 MG TAB PO SCH ×2 (08:11→20:09)
[2017-01-24] MEDS: ASPIRIN 81 MG CHEW TAB PO SCH (08:11)
--- NOTE | 2017-01-24 08:25 | HHI.PR ---
Subjective Remarks Follow-up anemia. Required IV Dilaudid for breakthrough pain affecting right AKA. Patient also has phantom pain. For EGD today. Discussed with RN Objective Vitals Vital Signs Date Time Temp Pulse Resp B/P Pulse Ox O2 Delivery O2 Flow Rate FiO2 01/24/17 07:01 78 01/24/17 05:00 76 01/24/17 04:00 76 01/24/17 03:33 98.6 84 20 95/65 98 01/24/17 03:00 81 01/24/17 02:00 82 01/24/17 01:00 86 01/24/17 00:00 88 01/23/17 23:30 98.8 86 20 109/74 98 01/23/17 23:00 89 01/23/17 22:00 84 01/23/17 21:00 80 01/23/17 20:00 78 01/23/17 19:30 98.8 89 20 109/51 97 01/23/17 19:00 84 01/23/17 18:24 18 01/23/17 18:00 82 01/23/17 17:13 18 01/23/17 17:00 88 01/23/17 16:00 99.0 87 20 108/59 99 01/23/17 16:00 76 01/23/17 15:00 81 01/23/17 14:00 78 01/23/17 13:00 84 01/23/17 12:00 98.6 78 18 96/55 96 01/23/17 12:00 80 01/23/17 11:00 83 01/23/17 10:00 80 01/23/17 09:00 74 01/23/17 08:31 96 I/O 01/23/17 01/23/17 01/23/17 01/24/17 01/24/17 01/24/17 07:00 15:00 23:00 07:00 15:00 23:00 Intake Total 800 ml 820 ml Output Total 400 ml 350 ml Balance 400 ml 820 ml -350 ml Intake Oral 800 ml 720 ml IV Total 100 ml Output Urine Total 400 ml 350 ml # Voids 4 Result Diagram: 01/23/17 0501/23/17 05 Imaging Last Impressions Head CT 01/20/17 0000 Signed Impressions: Service Date/Time: Friday, January 20, 2017 18:51 - CONCLUSION: No acute intracranial abnormality is identified. Femi Barron MD Chest X-Ray 01/20/17 0000 Signed Impressions: Service Date/Time: Friday, January 20, 2017 16:17 - CONCLUSION: Persistent diffuse increased interstitial markings likely representing some edema. These findings appear less prominent than they did on the prior exam. Femi Camejo MD Objective Remarks GENERAL: Patient is 61 yo lying in bed in NAD SKIN: Warm and dry. HEAD: Normocephalic. EYES: No scleral icterus. No injection or drainage. NECK: Supple, trachea midline. No JVD or lymphadenopathy. CARDIOVASCULAR: Regular rate and rhythm without murmurs, gallops, or rubs. RESPIRATORY: Breath sounds equal bilaterally. No accessory muscle use. GASTROINTESTINAL: Abdomen soft, non-tender, nondistended. Colostomy in place MUSCULOSKELETAL: Right AKA stump clear of infection Neuro: Awake and alert. Procedures For EGD A/P Problem List: (1) Anemia due to acute blood loss ICD Code: D62 Status: Acute (2) Diabetes mellitus ICD Code: E11.9 Status: Chronic Assessment and Plan 1)Resp failure. Resolved off BiPAP 2)Severe anemia secondary to acute blood loss. Improved with 4 units of packed RBC. Monitor CBC For EGD 3)ALFREDO- improved. Discontinue Avendano catheter 4)s/p Right AKA . Wound care. Continue physical therapy to work on transfers. Continue pain management including Neurontin. IV Dilaudid as needed for breakthrough pain for 2 days only. Patient counseled. 5)CHF/Cardiomyopathy with EF 25-30%. Stable. CHF education, I/O and monitor weight 6)PVD. Stable restart aspirin 7)diabetes mellitus. Monitor fingersticks with sliding scale coverage. Stable continue metformin. 8)Leukocytosis. Resolved. Blood cultures negative to date. Urine culture negative to date. Status post vancomycin. Discontinue Zosyn 9) hypokalemia and hypomagnesemia. Replace potassium and magnesium. Repeat magnesium and potassium improved 10)Colostomy care. Discontinue Avendano catheter GI prophylaxis with PPI. DVT prophylaxis with SCD and out of bed. Not a candidate for AC prophylaxis given severe anemia on arrival. Discharge Planning Discharge to SNF placement pending. Not safe for home discharge at this time Clinton Potter MD Jan 24, 2017 08:25
--- NOTE | 2017-01-24 09:43 | HHI.GIFU ---
Subjective Remarks Immediate postop note: EGD with biopsy Indication: anemia Meds: MAC Location GI Lab Findings: Esophagus normal. Stomach: very high gastrojejunostomy consistent with gastric bypass, with easy access to the bypassed stomach Stomach contains solid food and medication. Bx from the antrum for H Pylori Duodenum: normal with retained food Jejunum: normal anastomosis with one blind end and one efferent end. No ulceration or erosion seen. Objective Vitals I&O Vital Signs Date Time Temp Pulse Resp B/P Pulse Ox O2 Delivery O2 Flow Rate FiO2 01/24/17 07:01 78 01/24/17 05:00 76 01/24/17 04:00 76 01/24/17 03:33 98.6 84 20 95/65 98 01/24/17 03:00 81 01/24/17 02:00 82 01/24/17 01:00 86 01/24/17 00:00 88 01/23/17 23:30 98.8 86 20 109/74 98 01/23/17 23:00 89 01/23/17 22:00 84 01/23/17 21:00 80 01/23/17 20:00 78 01/23/17 19:30 98.8 89 20 109/51 97 01/23/17 19:00 84 01/23/17 18:24 18 01/23/17 18:00 82 01/23/17 17:13 18 01/23/17 17:00 88 01/23/17 16:00 99.0 87 20 108/59 99 01/23/17 16:00 76 01/23/17 15:00 81 01/23/17 14:00 78 01/23/17 13:00 84 01/23/17 12:00 98.6 78 18 96/55 96 01/23/17 12:00 80 01/23/17 11:00 83 01/23/17 10:00 80 I/O 01/23/17 01/23/17 01/23/17 01/24/17 01/24/17 01/24/17 07:00 15:00 23:00 07:00 15:00 23:00 Intake Total 800 ml 820 ml Output Total 400 ml 350 ml Balance 400 ml 820 ml -350 ml Intake Oral 800 ml 720 ml IV Total 100 ml Output Urine Total 400 ml 350 ml # Voids 4 Laboratory Date/Time Procedure Status Source Growth 01/20/17 17:40 Aerobic Blood Culture - Preliminary Resulted Blood Peripheral NO GROWTH IN 3 DAYS 01/20/17 17:40 Anaerobic Blood Culture - Preliminary Resulted Blood Peripheral NO GROWTH IN 3 DAYS 01/20/17 17:30 Urine Culture - Final Complete Urine Catheterized Urine NO GROWTH IN 48 HOURS. Physical Exam HEENT: PERRL; normocephalic; atraumatic; no jaundice. CHEST: CTA CARDIAC: RRR ABDOMEN: Soft, nondistended, nontender; no hepatosplenomegaly; bowel sounds are present in all four quadrants. Colostomy bag, no blood visualized EXTREMITIES: No clubbing, cyanosis, or edema. Right AKA, no bleeding seen. SKIN: Normal; no rash; no jaundice. CARDIAC TECHNOLOGIST: No focal deficits; alert and oriented times three. Assessment and Plan Plan ASSESSMENT - anemia - 5.8 on admission. on 01/18 was 7. Now WNL and stable, received transfustion 01/20. pt reports constant oozing of right AKA, hx myeloproliferative disorder. No hx ulcers. Denies melena, hematochezia, hematemesis. Last EGD/ colonoscopy 2011, no bleeding. Pt agrees to EGD only; no colonoscopy. - colostomy, hx complicated diverticulitis and colocutaneous fistula - EGD on 01/24 Shows old GAstric bypass with reopened access to the bypassed stomach. Gastroparesis. Biopsy taken for path for h pylori. No ulceration or bleeding lesion. Bypass anastomosis appears healthy otherwise. PLAN - Resume diet - OK to transfer to rehab if otherwise ready. - Followup with GI as outpatient - Will sign off, reconsult as needed. Josh Chapa MD Jan 24, 2017 09:43
[2017-01-24] MEDS ORDERED: PROPOFOL 200 MG/20 ML AMP IV ONE (09:46)
[2017-01-24] MEDS ORDERED: PHENYLEPH/NS 1000 MCG/10 ML SYR IV ONE (12:00)
[2017-01-24] MEDS ORDERED: ePHEDrine/NS 25 MG/5 ML SYR IV ONE (12:00)
[2017-01-24] MEDS: HYDROmorphone HCL PF 1 MG/ML VIAL IV PUSH PRN ×2 (12:35→20:11)
[2017-01-24] MEDS: GABAPENTIN 400 MG CAP PO SCH ×2 (18:19→23:57)
[2017-01-24] MEDS: ATORVASTATIN 40 MG TAB PO SCH (20:07)
[2017-01-24] MEDS: MONTELUKAST SODIUM 10 MG TAB PO SCH (20:08)
--- NOTE | 2017-01-24 22:38 | MR ---
cc: CRISTIANO POTTER MD, HAROLD H. MD DATE OF SURGERY: 01/24/2017. REFERRING PHYSICIAN: Dr. Potter. PROCEDURE PERFORMED: Esophagogastroduodenoscopy with biopsy. INDICATIONS FOR THE PROCEDURE: Anemia. DESCRIPTION OF THE PROCEDURE IN DETAIL: After informed consent was obtained, the patient was placed in the left side down position. She was sedated by the anesthesia service. After adequate sedation was achieved, the Pentax video gastroscope was inserted in the oropharynx and advanced through the esophagus into the stomach. The stomach contained residual food and medication. The scope was advanced down through the stomach and then through the pylorus into the duodenum reaching the descending portion. It was then withdrawn slowly examining the mucosal surfaces as carefully as possible. In the gastric antrum, a biopsy was obtained for evaluation of mild gastritis. A retroflexed exam was performed. The scope was then straightened, pulled back up through the esophagus and it was then inserted into the gastrojejunostomy that was located very near the GE junction. First the blind limb was accessed and then the scope was pulled back and the efferent limb was accessed down approximately 15 cm. Everything was normal in that exam. It was apparent that the patient had had a gastric bypass that had come partially undone and allowed access to the stomach. The scope was then withdrawn back through the esophagus carefully and then the procedure was terminated. She tolerated the procedure well and was returned to the recovery area in good condition. FINDINGS: 1. The esophagus appeared normal. 2. Just below the GE junction, there was an opening into the gastrojejunostomy typical for a gastric bypass. The blind limb and the efferent limb of the bypass appeared healthy; no ulcerations were seen. 3. The stomach itself was easily accessed indicating a dysfunction of the gastric bypass. 4. The stomach contained residual food. 5. The duodenum contained residual food. 6. Biopsies were obtained of the gastric antrum for mild gastritis. IMPRESSION: 1. History of gastric bypass. 2. Gastroparesis. 3. Gastritis. PLAN: 1. Will await the biopsy results. 2. The patient does not have any evidence of GI bleeding at this point. 3. History of gastric bypass, which is partially undone. 4. The patient is stable from a GI standpoint and may be discharged to rehab if she is otherwise medically stable. MD ANIBAL Chapa/JCC /9:56 AM /10:32 PM
[2017-01-25] VITALS (8 sets, daily range): BP systolic 120–143; BP diastolic 59–83; PULSE 68–79; RESP 16–20; TEMP 96.5–98.3; O2SAT 91–100
[2017-01-25] MEDS: RESP: ALBUTEROL 2.5 MG/IPRATROPIUM 0.5 MG NEB (SCH) INH ×4 (03:18→21:18)
[2017-01-25] MEDS: CHLORHEXIDINE GLUCONATE 2 % 1 PACK (2 CLOTHS) TOP SCH (04:00)
[2017-01-25] MEDS: MORPHINE SULFATE 15 MG TAB PO PRN ×5 (04:15→23:56)
[2017-01-25] MEDS: HYDROmorphone HCL PF 1 MG/ML VIAL IV PUSH PRN ×3 (06:27→23:03)
[2017-01-25] MEDS: GABAPENTIN 400 MG CAP PO SCH ×4 (06:28→23:03)
[2017-01-25] MEDS: INSULIN ASPART SUPPLEMENTAL SCALE SQ SCH ×4 (06:31→21:00)
[2017-01-25] MEDS: metFORMIN HCL 500 MG TAB PO SCH ×2 (08:52→17:54)
[2017-01-25] MEDS: CARVEDILOL 6.25 MG TAB PO SCH ×2 (08:52→19:35)
[2017-01-25] MEDS: CHOLECALCIFEROL (VIT D3) 5000 UNIT CAP PO SCH (08:52)
[2017-01-25] MEDS: ASPIRIN 81 MG CHEW TAB PO SCH (08:52)
[2017-01-25] MEDS: PANTOPRAZOLE SOD 40 MG DELAYED RELEASE TAB PO SCH (08:52)
[2017-01-25] MEDS: DULoxetine HCl DR 60 MG CAP PO SCH ×2 (08:52→19:36)
[2017-01-25] MEDS: AMIODARONE 200 MG TAB PO SCH (08:52)
--- NOTE | 2017-01-25 15:03 | HHI.PR ---
Subjective Remarks Patient asked to increase her Dilaudid to half milligram I explained to her that she is low body weight and that she is already also on 15 mg of morphine, we will need to avoid increasing Dilaudid preparing for discharge Otherwise no other complaint Objective Vitals Vital Signs Date Time Temp Pulse Resp B/P Pulse Ox O2 Delivery O2 Flow Rate FiO2 01/25/17 12:00 98.2 73 20 120/59 97 01/25/17 11:00 68 01/25/17 08:00 97.7 73 20 143/67 99 01/25/17 04:18 98.0 74 16 123/60 91 01/25/17 00:14 98.1 70 17 121/83 95 01/24/17 20:20 80 01/24/17 20:10 99.2 91 17 139/88 96 01/24/17 16:00 98.0 81 18 116/66 98 01/24/17 15:59 99 21 I/O 01/24/17 01/24/17 01/24/17 01/25/17 01/25/17 01/25/17 07:00 15:00 23:00 07:00 15:00 23:00 Intake Total 562 ml 360 ml Output Total 400 ml 150 ml 200 ml Balance 162 ml -150 ml -200 ml 360 ml Intake Oral 462 ml 360 ml Other 100 ml Output Urine Total 400 ml 200 ml Stool Total 150 ml # Voids 1 3 1 # Bowel Movements 1 Result Diagram: 01/23/1752101/23/17521 Objective Remarks GENERAL: This is a well-nourished, well-developed patient, in no apparent distress. SKIN: No rashes, warm and dry HEAD: Atraumatic. Normocephalic. EYES: Pupils equal round and reactive. Extraocular motions intact. No scleral icterus. ENT: Nose without bleeding, or drainage, Airway patent. NECK: Trachea midline. Supple CARDIOVASCULAR: Regular rate and rhythm without murmurs, gallops, or rubs. RESPIRATORY: Fair air entry bilaterally. No wheezes, rales, or rhonchi. GASTROINTESTINAL: Abdomen soft, non-tender, nondistended. Positive bowel sounds MUSCULOSKELETAL: Right AKA NEUROLOGICAL: Awake and alert. Moves all extremity. Normal speech.no focal neurological deficit Procedures For EGD A/P Problem List: (1) Anemia due to acute blood loss ICD Code: D62 Status: Acute (2) Diabetes mellitus ICD Code: E11.9 Status: Chronic Assessment and Plan 1)Resp failure. Resolved off BiPAP 2)Severe anemia secondary to acute blood loss. Improved with 4 units of packed RBC. Monitor CBC For EGD 3)ALFREDO- improved. Discontinue Avendano catheter 4)s/p Right AKA . Wound care. Continue physical therapy to work on transfers. Continue pain management including Neurontin. IV Dilaudid as needed for breakthrough pain for 2 days only. Patient counseled. 5)CHF/Cardiomyopathy with EF 25-30%. Stable. CHF education, I/O and monitor weight 6)PVD. Stable restart aspirin 7)diabetes mellitus. Monitor fingersticks with sliding scale coverage. Stable continue metformin. 8)Leukocytosis. Resolved. Blood cultures negative to date. Urine culture negative to date. Status post vancomycin. Discontinue Zosyn 9) hypokalemia and hypomagnesemia. Replace potassium and magnesium. Repeat magnesium and potassium improved 10)Colostomy care. Discontinue Avendano catheter GI prophylaxis with PPI. DVT prophylaxis with SCD and out of bed. Not a candidate for AC prophylaxis given severe anemia on arrival. 01/25: Patient continued to asked for increasing Dilaudid, continue current care , difficulty discharge Discharge Planning Discharge to SNF placement pending. Not safe for home discharge at this time Radha Meyers MD Jan 25, 2017 15:03
[2017-01-25] MEDS: ATORVASTATIN 40 MG TAB PO SCH (19:36)
[2017-01-25] MEDS: MONTELUKAST SODIUM 10 MG TAB PO SCH (19:36)
[2017-01-26] VITALS (7 sets, daily range): BP systolic 103–132; BP diastolic 54–65; PULSE 80–104; RESP 18–20; TEMP 97.3–99.1; O2SAT 94–97
[2017-01-26] MEDS: RESP: ALBUTEROL 2.5 MG/IPRATROPIUM 0.5 MG NEB (SCH) INH ×3 (03:26→22:00)
[2017-01-26] MEDS: CHLORHEXIDINE GLUCONATE 2 % 1 PACK (2 CLOTHS) TOP SCH (03:44)
--- NOTE | 2017-01-26 05:07 | PD.CAR.PN ---
CVT Progress Note Subjective/Hospital Course: Patient known to me from previous admissions Patient returns to Hospital pale, weak with hemoglobin of 5.8 g/dL Patient left the hospital with hemoglobin of 7 g/dL last week so I didn't take much to drop it 1 or 2 g. Patient is clearly very ill lady with decreased and suppress bone marrow production, on multiple medications and now received 1 L of saline which further diluted her. Patient is NOT bleeding from any source at this time, including her thigh. Stump is clean and dry and high is completely normal in size. This patient does NOT have hemorrhagic shock and no clinical parameters as to the same This patient is severely anemic with decreased oxygen carrying capacity and requires blood transfusion I have discussed this with Dr. Nava in the emergency room. 01/21/17 As stated yesterday patient does not have any bleeding into her thigh and amputation site is clean and dry Abdomen is soft with active bowel sounds Patient's anemia is likely attributable to decreased production in face of multiple medical problems including renal insufficiency Patient does not have hemorrhagic shock and this diagnosis should be changed in the system because this does not correlate with clinical findings Hemoglobin today is 12 g/dL and patient feels better Nothing to add to care this time 01/22/17 Stump clean and dry Hemoglobin stable Nothing to add to care at this time Would encourage to change the admitting diagnosis for hemorrhagic shock to something that is actually correct like anemia renal failure etc. 01/26/17 AK stump is dry and clean no drainage anymore Dressing intact Need to change dressing daily Objective: Vital Signs Date Time Temp Pulse Resp B/P Pulse Ox O2 Delivery O2 Flow Rate FiO2 01/26/17 00:00 Room Air 01/26/17 00:00 97.3 82 20 132/59 96 01/25/17 20:12 76 01/25/17 20:00 98.3 79 20 132/65 96 01/25/17 20:00 Room Air 01/25/17 16:00 96.5 76 20 135/65 100 01/25/17 12:00 98.2 73 20 120/59 97 01/25/17 11:00 68 01/25/17 08:00 97.7 73 20 143/67 99 Result Diagram: 01/23/17 0522 01/23/17 0522 Chantale Wakefield MD Jan 26, 2017 05:07
[2017-01-26] MEDS: MORPHINE SULFATE 15 MG TAB PO PRN ×5 (05:11→21:22)
[2017-01-26] MEDS: GABAPENTIN 400 MG CAP PO SCH ×4 (05:11→23:20)
[2017-01-26] MEDS: INSULIN ASPART SUPPLEMENTAL SCALE SQ SCH ×4 (05:12→21:00)
[2017-01-26] MEDS: HYDROmorphone HCL PF 1 MG/ML VIAL IV PUSH PRN ×2 (07:45→16:30)
[2017-01-26] MEDS: metFORMIN HCL 500 MG TAB PO SCH ×2 (09:35→17:31)
[2017-01-26] MEDS: PANTOPRAZOLE SOD 40 MG DELAYED RELEASE TAB PO SCH (09:35)
[2017-01-26] MEDS: DULoxetine HCl DR 60 MG CAP PO SCH ×2 (09:35→21:21)
[2017-01-26] MEDS: CHOLECALCIFEROL (VIT D3) 5000 UNIT CAP PO SCH (09:35)
[2017-01-26] MEDS: AMIODARONE 200 MG TAB PO SCH (09:36)
[2017-01-26] MEDS: CARVEDILOL 6.25 MG TAB PO SCH ×2 (09:36→21:21)
[2017-01-26] MEDS: ASPIRIN 81 MG CHEW TAB PO SCH (09:36)
--- NOTE | 2017-01-26 15:17 | HHI.PR ---
Subjective Remarks Written by Mari Pugh, acting as scribe for Dr. Meyers on 01/26/17 at 15:10. Follow up anemia. Patient seen and examined today, sitting up in bed comfortably. At this time pain is controlled. Patient does state that stump wound is "opening up some on the edges". Surgery following patient. Requested that RN call and please update surgeon about patient complaints. Otherwise, no acute complaints. Tolerating Po intake. Positive BM. Objective Vitals Vital Signs Date Time Temp Pulse Resp B/P Pulse Ox O2 Delivery O2 Flow Rate FiO2 01/26/17 12:00 98.4 80 20 103/56 95 01/26/17 08:00 98.2 104 20 114/62 94 01/26/17 08:00 96 Room Air 01/26/17 04:00 98.0 80 20 109/54 95 01/26/17 04:00 Room Air 01/26/17 00:00 Room Air 01/26/17 00:00 97.3 82 20 132/59 96 01/25/17 20:12 76 01/25/17 20:00 98.3 79 20 132/65 96 01/25/17 20:00 Room Air 01/25/17 16:00 96.5 76 20 135/65 100 I/O 01/25/17 01/25/17 01/25/17 01/26/17 01/26/17 01/26/17 07:00 15:00 23:00 07:00 15:00 23:00 Intake Total 360 ml 480 ml 600 ml Output Total 200 ml Balance -200 ml 360 ml 480 ml 600 ml Intake Oral 360 ml 480 ml 600 ml Output Urine Total 200 ml # Voids 3 1 1 4 2 # Bowel Movements 1 Result Diagram: 01/23/1752101/23/17 05 Imaging Last Impressions Head CT 01/20/17 0000 Signed Impressions: Service Date/Time: Friday, January 20, 2017 18:51 - CONCLUSION: No acute intracranial abnormality is identified. Femi Barron MD Chest X-Ray 01/20/17 0000 Signed Impressions: Service Date/Time: Friday, January 20, 2017 16:17 - CONCLUSION: Persistent diffuse increased interstitial markings likely representing some edema. These findings appear less prominent than they did on the prior exam. Femi Camejo MD Objective Remarks GENERAL: Well-nourished, well-developed patient, sitting in bed in no apparent distress. SKIN: No rashes, warm and dry. Right AK stump dressing c/d/i. HEAD: Atraumatic. Normocephalic. EYES: Pupils equal round and reactive. Extraocular motions intact. No scleral icterus. ENT: Nose without bleeding, or drainage, Airway patent. NECK: Trachea midline. Supple CARDIOVASCULAR: Regular rate and rhythm. No murmur appreciated. RESPIRATORY: Fair air entry bilaterally. No wheezes, rales, or rhonchi. GASTROINTESTINAL: Abdomen soft, non-tender, nondistended. Positive bowel sounds x 4 q. MUSCULOSKELETAL: Right AKA NEUROLOGICAL: Awake and alert. Moves all extremity. Normal speech. no focal neurological deficit Procedures For EGD A/P Problem List: (1) Anemia due to acute blood loss ICD Code: D62 Status: Acute (2) Diabetes mellitus ICD Code: E11.9 Status: Chronic Assessment and Plan 1)Resp failure. Resolved off BiPAP 2)Severe anemia secondary to acute blood loss. Improved with 4 units of packed RBC. Monitor CBC. Patient had EGD 01/24, await bx results, no evidence of GI bleed. 3)ALFREDO- improved. 4)s/p Right AKA . Wound care. Continue physical therapy to work on transfers. Continue pain management including Neurontin. IV Dilaudid PRN breakthrough pain. Patient counseled. Surgery following. 5)CHF/Cardiomyopathy with EF 25-30%. Stable. CHF education, I/O and monitor weight. 6)PVD. Stable restart aspirin 7)diabetes mellitus. Monitor fingersticks with sliding scale coverage. Stable continue metformin. 8)Leukocytosis. Resolved. Blood cultures negative to date. Urine culture negative to date. Status post vancomycin. Discontinue Zosyn 9) hypokalemia and hypomagnesemia, improved. Status post replacement, repeat magnesium and potassium improved 10)Colostomy care. GI prophylaxis with PPI. DVT prophylaxis with SCD and out of bed. Not a candidate for AC prophylaxis given severe anemia on arrival. Discharge Planning Discharge to SNF placement pending. Not safe for home discharge at this time. This note was transcribed by scribe [Mari Pugh]. I, Dr. Radha Meyers personally performed the history, physical exam, and medical decision making; and confirmed the accuracy of the information in the transcribed note. Authenticated by Dr. Radha Meyers on 01/26/17 at 15:18. Mari Pugh Jan 26, 2017 15:17 Radha Meyers MD Jan 26, 2017 15:19 Radha Meyers MD Jan 26, 2017 15:19
[2017-01-26] MEDS: MONTELUKAST SODIUM 10 MG TAB PO SCH (21:22)
[2017-01-26] MEDS: ATORVASTATIN 40 MG TAB PO SCH (21:22)
[2017-01-27] VITALS (7 sets, daily range): BP systolic 94–152; BP diastolic 51–66; PULSE 79–86; RESP 16–20; TEMP 97.3–98.8; O2SAT 95–98
[2017-01-27] MEDS: RESP: ALBUTEROL 2.5 MG/IPRATROPIUM 0.5 MG NEB (SCH) INH ×4 (03:11→19:49)
[2017-01-27] MEDS: CHLORHEXIDINE GLUCONATE 2 % 1 PACK (2 CLOTHS) TOP SCH (03:38)
[2017-01-27] MEDS: HYDROmorphone HCL PF 1 MG/ML VIAL IV PUSH PRN ×3 (04:52→21:22)
[2017-01-27] MEDS: GABAPENTIN 400 MG CAP PO SCH ×3 (06:09→17:14)
[2017-01-27] MEDS: MORPHINE SULFATE 15 MG TAB PO PRN ×4 (06:09→22:57)
[2017-01-27] MEDS: INSULIN ASPART SUPPLEMENTAL SCALE SQ SCH ×4 (06:11→21:29)
[2017-01-27] MEDS: AMIODARONE 200 MG TAB PO SCH (08:27)
[2017-01-27] MEDS: metFORMIN HCL 500 MG TAB PO SCH ×2 (08:27→17:14)
[2017-01-27] MEDS: PANTOPRAZOLE SOD 40 MG DELAYED RELEASE TAB PO SCH (08:27)
[2017-01-27] MEDS: DULoxetine HCl DR 60 MG CAP PO SCH ×2 (08:28→21:22)
[2017-01-27] MEDS: CARVEDILOL 6.25 MG TAB PO SCH ×2 (08:28→21:22)
[2017-01-27] MEDS: ASPIRIN 81 MG CHEW TAB PO SCH (08:28)
[2017-01-27] MEDS: CHOLECALCIFEROL (VIT D3) 5000 UNIT CAP PO SCH (08:28)
[2017-01-27] MEDS ORDERED: VANCOMYCIN INJ 850 MG in SODIUM CHLOR 0.9% 250 ML INJ 250 ML IV ONE (14:45)
[2017-01-27] MEDS ORDERED: Vancomycin Consult Pharmacy 1 EA OTHER SCH (14:45)
--- NOTE | 2017-01-27 14:49 | HHI.PR ---
Subjective Remarks Follow-up AK 1. Complains of pain requiring IV Dilaudid and wound dehiscence with purulent drainage. Discussed with RN. Vascular surgery alerted. Objective Vitals Vital Signs Date Time Temp Pulse Resp B/P Pulse Ox O2 Delivery O2 Flow Rate FiO2 01/27/17 12:00 97.3 85 20 119/51 95 01/27/17 08:35 86 01/27/17 08:35 Room Air 01/27/17 08:00 98.2 85 20 94/56 95 01/27/17 04:00 98.8 86 16 120/59 98 01/27/17 00:00 98.2 86 20 152/66 98 01/26/17 23:00 82 01/26/17 20:00 99.1 83 18 132/61 97 01/26/17 19:00 97 Room Air 01/26/17 16:00 97.9 82 20 131/65 95 I/O 01/26/17 01/26/17 01/26/17 01/27/17 01/27/17 01/27/17 07:00 15:00 23:00 07:00 15:00 23:00 Intake Total 600 ml 720 ml Output Total 600 ml Balance 600 ml 120 ml Intake Oral 600 ml 720 ml Output Urine Total 600 ml # Voids 4 2 2 1 2 # Bowel Movements 1 0 Result Diagram: 01/23/1752101/23/17 05 Imaging Last Impressions Head CT 01/20/17 0000 Signed Impressions: Service Date/Time: Friday, January 20, 2017 18:51 - CONCLUSION: No acute intracranial abnormality is identified. Femi Barron MD Chest X-Ray 01/20/17 0000 Signed Impressions: Service Date/Time: Friday, January 20, 2017 16:17 - CONCLUSION: Persistent diffuse increased interstitial markings likely representing some edema. These findings appear less prominent than they did on the prior exam. Femi Camejo MD Objective Remarks GENERAL: Patient is 61 yo lying in bed in NAD SKIN: Warm and dry. HEAD: Normocephalic. EYES: No scleral icterus. No injection or drainage. NECK: Supple, trachea midline. No JVD or lymphadenopathy. CARDIOVASCULAR: Regular rate and rhythm without murmurs, gallops, or rubs. RESPIRATORY: Breath sounds equal bilaterally. No accessory muscle use. GASTROINTESTINAL: Abdomen soft, non-tender, nondistended. Colostomy in place MUSCULOSKELETAL: Right AKA stump with wound dehiscence and purulent discharge Neuro: Awake and alert. Procedures EGD A/P Problem List: (1) Anemia due to acute blood loss ICD Code: D62 Status: Acute (2) Diabetes mellitus ICD Code: E11.9 Status: Chronic Assessment and Plan 1)Resp failure. Resolved off BiPAP 2)Severe anemia secondary to acute blood loss. Improved with 4 units of packed RBC. Monitor CBC. EGD shows evidence of gastric bypass. Gastroparesis. Biopsy taken to rule out H. pylori. Follow up pathology. If symptomatic with regards to gastroparesis start Reglan. Minimize use of narcotics 3)ALFREDO- improved. Discontinue Avendano catheter 4)s/p Right AKA. Wound care. Continue physical therapy to work on transfers, patient refused today secondary to pain. Continue pain management including Neurontin. IV Dilaudid as needed for breakthrough pain. Patient counseled. Has dehiscence with pus discharge. Hx MRSA and MDR PSAE. Check cx and repeat CBC and BMP. Start IV Vanco. Consult ID and alert Vascular surgery 5)CHF/Cardiomyopathy with EF 25-30%. Stable. CHF education, I/O and monitor weight 6)PVD. Stable continue aspirin 7)diabetes mellitus. Monitor fingersticks with sliding scale coverage. Stable continue metformin. 8)hypokalemia and hypomagnesemia. Replace potassium and magnesium. Repeat magnesium and potassium improved 9) Colostomy care. Discontinue Avendano catheter 10)GI prophylaxis with PPI. DVT prophylaxis with SCD and out of bed. S/P EGD, AC prophylaxis if ok with Dr Cooper Discharge Planning Not safe for home discharge at this time. Clinton Potter MD Jan 27, 2017 14:48
--- NOTE | 2017-01-27 15:55 | PD.CAR.PN ---
CVT Progress Note Subjective/Hospital Course: Patient known to me from previous admissions Patient returns to Hospital pale, weak with hemoglobin of 5.8 g/dL Patient left the hospital with hemoglobin of 7 g/dL last week so I didn't take much to drop it 1 or 2 g. Patient is clearly very ill lady with decreased and suppress bone marrow production, on multiple medications and now received 1 L of saline which further diluted her. Patient is NOT bleeding from any source at this time, including her thigh. Stump is clean and dry and high is completely normal in size. This patient does NOT have hemorrhagic shock and no clinical parameters as to the same This patient is severely anemic with decreased oxygen carrying capacity and requires blood transfusion I have discussed this with Dr. Nava in the emergency room. 01/21/17 As stated yesterday patient does not have any bleeding into her thigh and amputation site is clean and dry Abdomen is soft with active bowel sounds Patient's anemia is likely attributable to decreased production in face of multiple medical problems including renal insufficiency Patient does not have hemorrhagic shock and this diagnosis should be changed in the system because this does not correlate with clinical findings Hemoglobin today is 12 g/dL and patient feels better Nothing to add to care this time 01/22/17 Stump clean and dry Hemoglobin stable Nothing to add to care at this time Would encourage to change the admitting diagnosis for hemorrhagic shock to something that is actually correct like anemia renal failure etc. 01/26/17 AK stump is dry and clean no drainage anymore Dressing intact Need to change dressing daily 01/27/17 Patient with above-knee amputation impaired healing dehisced lateral portion of the stump Some drainage from it but I don't see if being purulent rather this is fibrin and liquefied adipose tissue Wet-to-dry dressing and the next few days I'll take patient to the operating room and placed the wound VAC Objective: Vital Signs Date Time Temp Pulse Resp B/P Pulse Ox O2 Delivery O2 Flow Rate FiO2 01/27/17 12:00 97.3 85 20 119/51 95 01/27/17 08:35 86 01/27/17 08:35 Room Air 01/27/17 08:00 98.2 85 20 94/56 95 01/27/17 04:00 98.8 86 16 120/59 98 01/27/17 00:00 98.2 86 20 152/66 98 01/26/17 23:00 82 01/26/17 20:00 99.1 83 18 132/61 97 01/26/17 19:00 97 Room Air 01/26/17 16:00 97.9 82 20 131/65 95 Result Diagram: 01/23/17 0522 01/23/17 0522 Chantale Wakefield MD Jan 27, 2017 15:55
[2017-01-27] MEDS: VANCOMYCIN 1,000 MG/NS 250 ML IV SCH ×2 (17:14)
[2017-01-27] MEDS: MONTELUKAST SODIUM 10 MG TAB PO SCH (21:22)
[2017-01-27] MEDS: ATORVASTATIN 40 MG TAB PO SCH (21:22)
[2017-01-28] VITALS (9 sets, daily range): BP systolic 97–140; BP diastolic 53–65; PULSE 71–87; RESP 16–18; TEMP 98–98.3; O2SAT 95–98
[2017-01-28] MEDS: GABAPENTIN 400 MG CAP PO SCH ×4 (00:30→16:41)
[2017-01-28] MEDS: MORPHINE SULFATE 15 MG TAB PO PRN ×5 (03:16→20:28)
[2017-01-28] MEDS: CHLORHEXIDINE GLUCONATE 2 % 1 PACK (2 CLOTHS) TOP SCH (04:00)
[2017-01-28] MEDS: RESP: ALBUTEROL 2.5 MG/IPRATROPIUM 0.5 MG NEB (SCH) INH (04:00)
[2017-01-28] MEDS: HYDROmorphone HCL PF 1 MG/ML VIAL IV PUSH PRN ×3 (05:17→18:40)
[2017-01-28] MEDS: INSULIN ASPART SUPPLEMENTAL SCALE SQ SCH ×4 (07:00→20:00)
--- NOTE | 2017-01-28 08:43 | MB ---
cc: FRANCISCO MANCIA MD DATE OF CONSULTATION 01/27/[address] Potter REASON Infected AKA wound, history of MRSA and MDR Pseudomonas. HISTORY OF PRESENT ILLNESS This is a 61-year-old white female who is known to me from prior hospitalization. The patient was in the hospital with infected [id number] wound from prior amputation and she was treated with remsy-[id number]-[id number] amputation after antibiotic treatment for resistant bacteria including MRSA and very resistant Pseudomonas. She was discharge from the hospital on January 18. She was cared for by visiting nurses for the wound and apparently was healing well. She tells me that the sutures were removed approximately four days ago and after that there was bleeding at the wound and subsequently serous and then grayish drainage. She was admitted the hospital with cardiac complaints and she was found to be very weak and was bradycardic and was given atropine and she was also noted to be hypotensive with a blood pressure of 60/30. She was given fluid boluses and her blood pressure improved. She had a white count of 12,000 on admission. She was admitted with severe anemia with a hemoglobin of 5.8. In the interim, she was evaluated by general surgery for the wound of the right lower extremity. It was felt that the wound may not be infected. There are plans to take her to surgery to do a debridement in a couple of days. The patient tells me that she has no fever, chills, nausea, vomiting or other symptoms. She is awake and alert. Her temperature is 98.4 degrees. She has been afebrile since admission on 01/20. She was started on vancomycin and she did get piperacillin between 01/20-01/23. A culture of the wound was taken today. No results are yet available. PAST MEDICAL HISTORY 1. Diabetes mellitus 2. Chronic renal disease 3. Gastroesophageal reflux disease 4. CHF 5. Osteoporosis 6. Lupus 7. Myeloproliferative disorder 8. History of colostomy and fistula 9. History of cardiac stent x2 10. History of coronary bypass graft surgery 11. Hysterectomy 12. Tonsillectomy 13. Cholecystectomy ALLERGIES PENICILLIN, BACTRIM, SHELLFISH, AND IODINE. MEDICATIONS 1. Vancomycin 2. Neurontin 3. Cordarone 4. Aspirin 5. vitamin D3 6. Lipitor 7. Coreg 8. Cymbalta 9. Singulair 10. Glucophage 11. Insulin 12. Morphine sulfate p.r.n. SOCIAL HISTORY The patient is . No tobacco, no alcohol. No illicit drugs. FAMILY HISTORY Noncontributory REVIEW OF SYSTEMS Negative on A 10-point review. PHYSICAL EXAMINATION This is a pleasant slender female who is in no acute distress. She is awake and alert and oriented. VITAL SIGNS: Temperature 98.4, BP 121/62, respirations 20, heart rate 84. HEENT: The head is atraumatic. Extraocular movements grossly intact, pupils reactive to light. No icterus. No conjunctival erythema. Oropharynx, moist mucosa without lesions. NECK: Supple. No adenopathy or swelling. LUNGS: Clear to auscultation. HEART: Regular S1-S2 without murmurs, rubs or gallops. ABDOMEN: Bowel sounds present, soft, nontender. RECTAL: Not performed. EXTREMITIES: The right leg has a dressing in place overlying the stump dehisced wound. The left leg is intact. There are a few superficial tiny bruise at the distal dorsal aspect of the toes which are dry. NEUROLOGIC: Patient is alert and oriented. No gross focal findings. SKIN: No diffuse rash. PSYCH: The patient is calm and cooperative. LABORATORY DATA WBC 10.2, platelets 292. Creatinine 0.73, estimated GFR of 81, sodium 135. IMPRESSION Status post right stump AKA of the lower extremity and now with dehisced wound and bloody drainage initially. Culture of the wound has been taken and is pending. At this point, it is not clear whether she does have infection of the wound. It likely is not infected because of the report that she states there was a lot of bloody drainage without pus although she does mention there was some grayish drainage after that. She is afebrile and the white blood cell count is normal and there does not seem to be any other infectious issues. RECOMMENDATIONS Monitor wound culture and stop the Vancomycin if no MRSA is recovered on culture. I spoke to Dr. Wakefield and he indicates to me that he likely will do a debridement in a couple of days and put a wound Vac on the wound. Thank for this consultation. I will monitor the cultures and follow the patient with you. Francisco Mancia MD FD/COLEEN /6:00 PM /8:33 AM
[2017-01-28] MEDS: AMIODARONE 200 MG TAB PO SCH (08:55)
[2017-01-28] MEDS: metFORMIN HCL 500 MG TAB PO SCH ×2 (08:55→16:41)
[2017-01-28] MEDS: ASPIRIN 81 MG CHEW TAB PO SCH (08:55)
[2017-01-28] MEDS: PANTOPRAZOLE SOD 40 MG DELAYED RELEASE TAB PO SCH (08:55)
[2017-01-28] MEDS: CHOLECALCIFEROL (VIT D3) 5000 UNIT CAP PO SCH (08:55)
[2017-01-28] MEDS: DULoxetine HCl DR 60 MG CAP PO SCH ×2 (08:55→20:29)
[2017-01-28] MEDS: CARVEDILOL 6.25 MG TAB PO SCH ×2 (08:56→20:29)
[2017-01-28 10:25] LABS: BASOPHIL # 0.1 TH/MM3 (0-0.2); BASOPHIL % 0.9 % (0.0-2.0); EOSINOPHIL # 0.4 TH/MM3 (0-0.4); EOSINOPHIL % 4.2 % (0.0-4.0); HEMATOCRIT 40.8 % (35.0-46.0); HEMO FLAGS DIFF FINAL; LYMPHOCYTE # 1.7 TH/MM3 (1.0-4.8); MEAN CELL VOLUME 86.4 FL (80.0-100.0); MEAN CORPUSCULAR HEMOGLOBIN 28.5 PG (27.0-34.0); MONO % 13.7 % (0.0-8.0); NEUT % 63.2 % (16.0-70.0); PLATELET COUNT 186 TH/MM3 (150-450); RED BLOOD COUNT 4.72 MIL/MM3 (4.00-5.30); RED CELL DISTRIBUTION WIDTH 15.7 % (11.6-17.2); WHITE BLOOD COUNT 9.5 TH/MM3 (4.0-11.0)
[2017-01-28 10:36] LABS: BICARBONATE 29.7 MEQ/L (21.0-32.0); MAGNESIUM 1.5 MG/DL (1.5-2.5); POTASSIUM 4.4 MEQ/L (3.5-5.1)
--- NOTE | 2017-01-28 11:25 | HHI.PR ---
Subjective Remarks F/u AKA stump infection. Continues to have significant pain requiring IV dilaudid dw RN Objective Vitals Vital Signs Date Time Temp Pulse Resp B/P Pulse Ox O2 Delivery O2 Flow Rate FiO2 01/28/17 08:00 98.0 71 16 110/56 98 01/28/17 07:23 78 01/28/17 04:00 98.3 75 18 102/53 97 01/28/17 00:00 98.3 78 18 140/65 98 01/27/17 20:00 98.0 79 18 129/58 97 01/27/17 16:00 98.4 84 20 121/62 96 01/27/17 12:00 97.3 85 20 119/51 95 I/O 01/27/17 01/27/17 01/27/17 01/28/17 01/28/17 01/28/17 07:00 15:00 23:00 07:00 15:00 23:00 Intake Total 720 ml 240 ml Output Total 600 ml 500 ml 600 ml Balance 120 ml -260 ml -600 ml Intake Oral 720 ml 240 ml Output Urine Total 600 ml 500 ml 600 ml # Voids 1 2 # Bowel Movements 0 0 0 Result Diagram: 01/28/17 0940 01/28/17 0940 Imaging Last Impressions Head CT 01/20/17 0000 Signed Impressions: Service Date/Time: Friday, January 20, 2017 18:51 - CONCLUSION: No acute intracranial abnormality is identified. Femi Barron MD Chest X-Ray 01/20/17 0000 Signed Impressions: Service Date/Time: Friday, January 20, 2017 16:17 - CONCLUSION: Persistent diffuse increased interstitial markings likely representing some edema. These findings appear less prominent than they did on the prior exam. Femi Camejo MD Objective Remarks GENERAL: Patient is 61 yo lying in bed in NAD SKIN: Warm and dry. HEAD: Normocephalic. EYES: No scleral icterus. No injection or drainage. NECK: Supple, trachea midline. No JVD or lymphadenopathy. CARDIOVASCULAR: Regular rate and rhythm without murmurs, gallops, or rubs. RESPIRATORY: Breath sounds equal bilaterally. No accessory muscle use. GASTROINTESTINAL: Abdomen soft, non-tender, nondistended. Colostomy in place MUSCULOSKELETAL: Right AKA stump slight swollen and tender with wound dehiscence Neuro: Awake and alert. Procedures EGD A/P Problem List: (1) Anemia due to acute blood loss ICD Code: D62 Status: Acute (2) Diabetes mellitus ICD Code: E11.9 Status: Chronic Assessment and Plan 1)Resp failure. Resolved off BiPAP 2)Severe anemia secondary to acute blood loss. Improved with 4 units of packed RBC. Monitor CBC. EGD shows evidence of gastric bypass. Gastroparesis. Biopsy taken to rule out H. pylori which is negative. Follow up pathology with chronic gastritis. Ct PPI. If symptomatic with regards to gastroparesis start Reglan. Minimize use of narcotics 3)ALFREDO- improved. Discontinue Avendano catheter 4)s/p Right AKA. Wound care. Continue physical therapy to work on transfers. Continue pain management including Neurontin. IV Dilaudid as needed for breakthrough pain. Patient counseled. Has dehiscence with pus discharge. Hx MRSA and MDR PSAE. F/u cx ct IV Vanco. Consulted ID. Vascular surgery to take pt to OR for debridement and wd vac 5)CHF/Cardiomyopathy with EF 25-30%. Stable. CHF education, I/O and monitor weight 6)PVD. Stable continue aspirin 7)diabetes mellitus. Monitor fingersticks with sliding scale coverage. Stable continue metformin. 8)hypokalemia and hypomagnesemia. Replaced potassium and magnesium. Repeat magnesium and potassium improved 9) Colostomy care. 10)GI prophylaxis with PPI. DVT prophylaxis with SCD and out of bed. S/P EGD, AC prophylaxis if ok with Dr Cooper Discharge Planning Not safe for home discharge at this time. She wants to be transferred to nearer to her family will andreas surgery Clinton Potter MD Jan 28, 2017 11:25
[2017-01-28] MEDS: VANCOMYCIN 1,000 MG/NS 250 ML IV SCH ×2 (11:29)
[2017-01-28] MEDS: HEPARIN SODIUM - SQ 10,000 UNITS/ML VIAL SQ SCH (20:28)
[2017-01-28] MEDS: MONTELUKAST SODIUM 10 MG TAB PO SCH (20:29)
[2017-01-28] MEDS: ATORVASTATIN 40 MG TAB PO SCH (20:29)
[2017-01-29] VITALS (8 sets, daily range): BP systolic 98–121; BP diastolic 52–60; PULSE 72–88; RESP 14–20; TEMP 97.8–98.5; O2SAT 95–98
[2017-01-29] MEDS: GABAPENTIN 400 MG CAP PO SCH ×5 (00:15→22:35)
[2017-01-29] MEDS: MORPHINE SULFATE 15 MG TAB PO PRN ×5 (00:15→22:36)
[2017-01-29] MEDS: HYDROmorphone HCL PF 1 MG/ML VIAL IV PUSH PRN ×3 (02:14→19:14)
[2017-01-29] MEDS: CHLORHEXIDINE GLUCONATE 2 % 1 PACK (2 CLOTHS) TOP SCH (03:13)
[2017-01-29] MEDS: VANCOMYCIN 1,000 MG/NS 250 ML IV SCH ×4 (04:36→22:54)
[2017-01-29] MEDS ORDERED: PHARMACY ORDERED LAB ONE ×2 (04:45→22:45)
[2017-01-29] MEDS: INSULIN ASPART SUPPLEMENTAL SCALE SQ SCH ×4 (05:42→21:00)
[2017-01-29] MEDS: ASPIRIN 81 MG CHEW TAB PO SCH (08:12)
[2017-01-29] MEDS: metFORMIN HCL 500 MG TAB PO SCH ×2 (08:43→16:57)
[2017-01-29] MEDS: DULoxetine HCl DR 60 MG CAP PO SCH ×2 (08:43→21:35)
[2017-01-29] MEDS: PANTOPRAZOLE SOD 40 MG DELAYED RELEASE TAB PO SCH (08:44)
[2017-01-29] MEDS: CHOLECALCIFEROL (VIT D3) 5000 UNIT CAP PO SCH (08:44)
[2017-01-29] MEDS: HEPARIN SODIUM - SQ 10,000 UNITS/ML VIAL SQ SCH ×2 (08:53→21:34)
[2017-01-29] MEDS: CARVEDILOL 6.25 MG TAB PO SCH ×2 (08:53→21:34)
[2017-01-29] MEDS: AMIODARONE 200 MG TAB PO SCH (09:00)
--- NOTE | 2017-01-29 09:45 | HHI.PR ---
Subjective Remarks Follow-up infected AKA stump. States she did not sleep well last night secondary to pain. Advised I will increase frequency of IV Dilaudid for the next 2 days. She still wants to be transferred to [facility] when okay by Dr. Cooper. Discussed with RN Objective Vitals Vital Signs Date Time Temp Pulse Resp B/P Pulse Ox O2 Delivery O2 Flow Rate FiO2 01/29/17 08:00 98.2 74 20 109/58 95 01/29/17 05:15 Room Air 01/29/17 01:00 Room Air 01/29/17 00:00 98.5 85 16 120/60 96 01/28/17 20:58 Room Air 01/28/17 20:18 87 01/28/17 20:00 98.1 85 16 125/58 97 01/28/17 16:00 98.3 84 16 136/64 96 01/28/17 12:00 98.2 78 16 123/58 95 I/O 01/28/17 01/28/17 01/28/17 01/29/17 01/29/17 01/29/17 07:00 15:00 23:00 07:00 15:00 23:00 Intake Total 380 ml 2 ml 150 ml Output Total 600 ml 800 ml 300 ml 400 ml Balance -600 ml -420 ml -298 ml -250 ml Intake Oral 380 ml IV Total 2 ml 150 ml Output Urine Total 600 ml 800 ml 300 ml 400 ml # Bowel Movements 0 0 Result Diagram: 01/28/17 0940 01/28/17 0940 Imaging Last Impressions Head CT 01/20/17 0000 Signed Impressions: Service Date/Time: Friday, January 20, 2017 18:51 - CONCLUSION: No acute intracranial abnormality is identified. Femi Barron MD Chest X-Ray 01/20/17 0000 Signed Impressions: Service Date/Time: Friday, January 20, 2017 16:17 - CONCLUSION: Persistent diffuse increased interstitial markings likely representing some edema. These findings appear less prominent than they did on the prior exam. Femi Camejo MD Objective Remarks GENERAL: Patient is 61 yo lying in bed in NAD SKIN: Warm and dry. HEAD: Normocephalic. EYES: No scleral icterus. No injection or drainage. NECK: Supple, trachea midline. No JVD or lymphadenopathy. CARDIOVASCULAR: Regular rate and rhythm without murmurs, gallops, or rubs. RESPIRATORY: Breath sounds equal bilaterally. No accessory muscle use. GASTROINTESTINAL: Abdomen soft, non-tender, nondistended. Colostomy in place MUSCULOSKELETAL: Right AKA stump slight swollen and tender with wound dehiscence Neuro: Appears sleepy but oriented 4. Nonfocal Procedures EGD A/P Problem List: (1) Anemia due to acute blood loss ICD Code: D62 Status: Acute (2) Diabetes mellitus ICD Code: E11.9 Status: Chronic Assessment and Plan 1)Resp failure. Resolved off BiPAP 2)Severe anemia secondary to acute blood loss. Improved with 4 units of packed RBC. Monitor CBC. EGD shows evidence of gastric bypass. Gastroparesis. Biopsy taken to rule out H. pylori which is negative. Follow up pathology with chronic gastritis. Ct PPI. If symptomatic with regards to gastroparesis start Reglan. Minimize use of narcotics 3)ALFREDO- improved. Discontinue Avendano catheter 4)s/p Right AKA. Wound care. Continue physical therapy to work on transfers. Continue pain management including Neurontin, Percocet and morphine. I will increase frequency of IV Dilaudid for the next 2 days as needed for breakthrough pain. Patient counseled. Has dehiscence with pus discharge. Hx MRSA and MDR PSAE. F/u cx which grew MRSA again ct IV Vanco. Consulted ID. Vascular surgery to take pt to OR for debridement and wd vac today 5)CHF/Cardiomyopathy with EF 25-30%. Stable. CHF education, I/O and monitor weight 6)PVD. Stable continue aspirin 7)diabetes mellitus. Monitor fingersticks with sliding scale coverage. Stable continue metformin. 8)hypokalemia and hypomagnesemia. Replaced potassium and magnesium. Repeat magnesium and potassium improved 9) Colostomy care. 10)GI prophylaxis with PPI. DVT prophylaxis with SCD and out of bed. S/P EGD, AC prophylaxis with subcutaneous heparin if ok with Dr Cooper post operatively Discharge Planning Not safe for home discharge at this time. She wants to be transferred to where her family lives nearby Clinton Potter MD Jan 29, 2017 09:45
[2017-01-29] MEDS ORDERED: ONDANSETRON HCL 4 MG/2 ML VIAL IV PUSH ONE (12:00)
[2017-01-29] MEDS ORDERED: PROPOFOL 200 MG/20 ML AMP IV ONE (12:00)
[2017-01-29] MEDS ORDERED: ePHEDrine/NS 25 MG/5 ML SYR IV ONE (12:00)
--- NOTE | 2017-01-29 12:20 | PD.CAR.PN ---
CVT Progress Note Subjective/Hospital Course: Patient known to me from previous admissions Patient returns to Hospital pale, weak with hemoglobin of 5.8 g/dL Patient left the hospital with hemoglobin of 7 g/dL last week so I didn't take much to drop it 1 or 2 g. Patient is clearly very ill lady with decreased and suppress bone marrow production, on multiple medications and now received 1 L of saline which further diluted her. Patient is NOT bleeding from any source at this time, including her thigh. Stump is clean and dry and high is completely normal in size. This patient does NOT have hemorrhagic shock and no clinical parameters as to the same This patient is severely anemic with decreased oxygen carrying capacity and requires blood transfusion I have discussed this with Dr. Nava in the emergency room. 01/21/17 As stated yesterday patient does not have any bleeding into her thigh and amputation site is clean and dry Abdomen is soft with active bowel sounds Patient's anemia is likely attributable to decreased production in face of multiple medical problems including renal insufficiency Patient does not have hemorrhagic shock and this diagnosis should be changed in the system because this does not correlate with clinical findings Hemoglobin today is 12 g/dL and patient feels better Nothing to add to care this time 01/22/17 Stump clean and dry Hemoglobin stable Nothing to add to care at this time Would encourage to change the admitting diagnosis for hemorrhagic shock to something that is actually correct like anemia renal failure etc. 01/26/17 AK stump is dry and clean no drainage anymore Dressing intact Need to change dressing daily 01/27/17 Patient with above-knee amputation impaired healing dehisced lateral portion of the stump Some drainage from it but I don't see if being purulent rather this is fibrin and liquefied adipose tissue Wet-to-dry dressing and the next few days I'll take patient to the operating room and placed the wound VAC 01/29/17 Right AKA stump lateral aspect debrided and washed out Good inflammatory granulation tissue forming despite patient's impaired healing potential Wound VAC applied Patient can transfer to [facility] any time and wound VAC has to be changed every Friday and for about 2-3 weeks total After that I'll probably take patient to the OR for secondary closure or if the wound is small allow it to heal completely without any further need for surgery Objective: Vital Signs Date Time Temp Pulse Resp B/P Pulse Ox O2 Delivery O2 Flow Rate FiO2 01/29/17 12:00 68 16 139/65 100 Room Air 01/29/17 11:45 66 15 139/64 99 Room Air 01/29/17 11:29 97.5 65 16 147/64 100 Nasal Cannula 2 01/29/17 09:00 72 01/29/17 08:00 98.2 74 20 109/58 95 01/29/17 05:15 Room Air 01/29/17 01:00 Room Air 01/29/17 00:00 98.5 85 16 120/60 96 01/28/17 20:58 Room Air 01/28/17 20:18 87 01/28/17 20:00 98.1 85 16 125/58 97 01/28/17 16:00 98.3 84 16 136/64 96 Result Diagram: 01/28/17 0940 01/28/17 0940 Chantale Wakefield MD Jan 29, 2017 12:20
[2017-01-29] MEDS ORDERED: DO NOT ADM ANY ANTICOAGULANT DRUGS PRN (12:30)
--- NOTE | 2017-01-29 13:59 | HHI.IDPN ---
Note Infectious Disease Note Patient feels pain in r. stump wound. Want increase in pain med. Post debridement and wound vac 01/28. Wound culture has MRSA. Afebrile. PAST MEDICAL HISTORY 1. Diabetes mellitus 2. Chronic renal disease 3. Gastroesophageal reflux disease 4. CHF 5. Osteoporosis 6. Lupus 7. Myeloproliferative disorder 8. History of colostomy and fistula 9. History of cardiac stent x2 10. History of coronary bypass graft surgery 11. Hysterectomy 12. Tonsillectomy 13. Cholecystectomy ALLERGIES PENICILLIN, BACTRIM, SHELLFISH, AND IODINE. ANTIBIOTIC: 1. Vancomycin OBJECTIVE: Vital Signs Date Time Temp Pulse Resp B/P Pulse Ox O2 Delivery O2 Flow Rate FiO2 01/29/17 12:15 68 16 132/62 99 Room Air 01/29/17 12:00 68 16 139/65 100 Room Air 01/29/17 11:45 66 15 139/64 99 Room Air 01/29/17 11:29 97.5 65 16 147/64 100 Nasal Cannula 2 01/29/17 09:00 72 01/29/17 08:00 98.2 74 20 109/58 95 01/29/17 05:15 Room Air 01/29/17 01:00 Room Air 01/29/17 00:00 98.5 85 16 120/60 96 01/28/17 20:58 Room Air 01/28/17 20:18 87 01/28/17 20:00 98.1 85 16 125/58 97 01/28/17 16:00 98.3 84 16 136/64 96 Laboratory Tests Test 01/28/17 09:40 White Blood Count 9.5 TH/MM3 Red Blood Count 4.72 MIL/MM3 Hemoglobin 13.5 GM/DL Hematocrit 40.8 % Mean Corpuscular Volume 86.4 FL Mean Corpuscular Hemoglobin 28.5 PG Mean Corpuscular Hemoglobin 33.0 % Concent Red Cell Distribution Width 15.7 % Platelet Count 186 TH/MM3 Mean Platelet Volume 7.8 FL Neutrophils (%) (Auto) 63.2 % Lymphocytes (%) (Auto) 18.0 % Monocytes (%) (Auto) 13.7 % Eosinophils (%) (Auto) 4.2 % Basophils (%) (Auto) 0.9 % Neutrophils # (Auto) 6.0 TH/MM3 Lymphocytes # (Auto) 1.7 TH/MM3 Monocytes # (Auto) 1.3 TH/MM3 Eosinophils # (Auto) 0.4 TH/MM3 Basophils # (Auto) 0.1 TH/MM3 CBC Comment DIFF FINAL Differential Comment Hematology Comments Laboratory Tests Test 01/28/17 09:40 Sodium Level 136 MEQ/L Potassium Level 4.4 MEQ/L Chloride Level 98 MEQ/L Carbon Dioxide Level 29.7 MEQ/L Anion Gap 8 MEQ/L Blood Urea Nitrogen 14 MG/DL Creatinine 0.72 MG/DL Estimat Glomerular Filtration 83 ML/MIN Rate Random Glucose 124 MG/DL Calcium Level 8.6 MG/DL Magnesium Level 1.5 MG/DL Microbiology Date/Time Procedure Status Source Growth 01/27/17 15:48 Gram Stain - Final Complete Wound Thigh 01/27/17 15:48 Wound Culture - Final Complete S. Aureus Mrsa 01/29/17 11:27 Gram Stain Received Wound Knee Pending 01/29/17 11:27 Wound Culture Received Wound Knee Pending 01/29/17 11:27 Acid Fast Stain Received Wound Knee Pending 01/29/17 11:27 Mycobacterial Culture Received Wound Knee Pending 01/29/17 11:27 Fungal Smear Received Wound Knee Pending 01/29/17 11:27 Fungal Culture Received Wound Knee Pending PHYSICAL EXAMINATION GENERAL: No acute distress. Awake, alert and oriented. HEENT: No icterus. No conjunctival erythema. Oropharynx, moist mucosa without lesions. NECK: Supple. No adenopathy or swelling. LUNGS: Clear to auscultation. HEART: Regular S1-S2 without murmurs, rubs or gallops. EXTREMITIES: The right leg stump has wound vac. Serous drainage. NEUROLOGIC: Patient is alert and oriented. No gross focal findings. SKIN: No diffuse rash. PSYCH: Calm and cooperative. IMPRESSION Status post right stump AKA of the lower extremity and now with dehisced wound and bloody drainage initially. Wound infection due to MRSA at dehisced wound. RECOMMENDATIONS Continue Vancomycin for 2 weeks until February 12. I will sign off now since nothing further to add. Please call if further input is needed. Ike Briceno MD Jan 29, 2017 13:59
[2017-01-29] MEDS ORDERED: HYDROmorphone HCL PF 1 MG/ML VIAL IV PUSH ONE (21:00)
[2017-01-29] MEDS: MONTELUKAST SODIUM 10 MG TAB PO SCH (21:33)
[2017-01-29] MEDS: ATORVASTATIN 40 MG TAB PO SCH (21:33)
[2017-01-30] VITALS (12 sets, daily range): BP systolic 103–116; BP diastolic 54–59; PULSE 64–82; RESP 18–20; TEMP 97.5–98.1; O2SAT 96–100
[2017-01-30] MEDS: HYDROmorphone HCL PF 1 MG/ML VIAL IV PUSH PRN ×6 (00:37→22:36)
[2017-01-30] MEDS: MORPHINE SULFATE 15 MG TAB PO PRN ×5 (02:34→20:54)
[2017-01-30] MEDS: CHLORHEXIDINE GLUCONATE 2 % 1 PACK (2 CLOTHS) TOP SCH (04:00)
[2017-01-30] MEDS: GABAPENTIN 400 MG CAP PO SCH ×4 (06:19→22:39)
[2017-01-30] MEDS: INSULIN ASPART SUPPLEMENTAL SCALE SQ SCH ×4 (06:19→21:00)
[2017-01-30] MEDS: CARVEDILOL 6.25 MG TAB PO SCH ×2 (08:06→20:57)
[2017-01-30] MEDS: DULoxetine HCl DR 60 MG CAP PO SCH ×2 (08:08→20:55)
[2017-01-30] MEDS: AMIODARONE 200 MG TAB PO SCH (08:08)
[2017-01-30] MEDS: CHOLECALCIFEROL (VIT D3) 5000 UNIT CAP PO SCH (08:08)
[2017-01-30] MEDS: HEPARIN SODIUM - SQ 10,000 UNITS/ML VIAL SQ SCH ×2 (08:08→20:57)
[2017-01-30] MEDS: ASPIRIN 81 MG CHEW TAB PO SCH (08:08)
[2017-01-30] MEDS: PANTOPRAZOLE SOD 40 MG DELAYED RELEASE TAB PO SCH (08:08)
[2017-01-30] MEDS: metFORMIN HCL 500 MG TAB PO SCH (08:08)
[2017-01-30] MEDS: VANCOMYCIN INJ 850 MG in SODIUM CHLOR 0.9% 250 ML INJ 250 ML IV SCH ×2 (11:07→22:35)
--- NOTE | 2017-01-30 17:16 | HHI.PR ---
Subjective Remarks Follow-up infected AKA stump. Pt reported pain being poorly controlled. Stated pain interfered with sleep last night. Stated she was in "excruciating" pain as she was sitting still, leaning forward. She denied fever, cough, shortness of breath, NVD, or bloody urine or stool. Per RN (Halie) no acute issues developed over night or since start of shift. RN reported no issues with pt's colostomy, her blood glucoses levels were reported to be stable and wound care is to see pt tomorrow. Objective Vitals Vital Signs Date Time Temp Pulse Resp B/P Pulse Ox O2 Delivery O2 Flow Rate FiO2 01/30/17 16:01 97.5 64 18 111/58 96 01/30/17 15:12 82 01/30/17 12:10 97.7 67 19 104/59 99 01/30/17 11:27 78 01/30/17 10:49 98 21 01/30/17 08:01 97.7 66 18 106/54 100 01/30/17 07:32 82 01/30/17 07:32 Room Air 01/30/17 04:00 Room Air 01/30/17 04:00 97.6 68 20 103/55 97 01/30/17 00:00 Room Air 01/30/17 00:00 98.1 74 18 116/58 97 01/29/17 20:17 78 01/29/17 20:00 98.4 78 18 114/56 98 01/29/17 20:00 Room Air 01/29/17 17:30 21 I/O 01/29/17 01/29/17 01/29/17 01/30/17 01/30/17 01/30/17 07:00 15:00 23:00 07:00 15:00 23:00 Intake Total 150 ml 0 ml 100 ml 370 ml Output Total 400 ml 400 ml 1650 ml Balance -250 ml -400 ml 100 ml -1280 ml Intake Oral 0 ml 120 ml IV Total 150 ml 100 ml 250 ml Output Urine Total 400 ml 400 ml 1650 ml # Bowel Movements 1 1 Result Diagram: 01/28/17 0940 01/30/17 0719 Imaging Last Impressions Head CT 01/20/17 0000 Signed Impressions: Service Date/Time: Friday, January 20, 2017 18:51 - CONCLUSION: No acute intracranial abnormality is identified. Femi Barron MD Chest X-Ray 01/20/17 0000 Signed Impressions: Service Date/Time: Friday, January 20, 2017 16:17 - CONCLUSION: Persistent diffuse increased interstitial markings likely representing some edema. These findings appear less prominent than they did on the prior exam. Femi Camejo MD Objective Remarks GENERAL: pt encountered sitting a bed, leaning forward, reporting pain, NAD SKIN: Warm and dry. well healed surgical scar on pt's back (right flank). HEAD: Normocephalic. EYES: No scleral icterus. No injection or drainage. NECK: Supple, trachea midline. No lymphadenopathy. CARDIOVASCULAR: Regular rate and rhythm without murmurs, gallops, or rubs. RESPIRATORY: Breath sounds equal bilaterally. No accessory muscle use. GASTROINTESTINAL: Abdomen soft, non-tender, nondistended. MUSCULOSKELETAL: No cyanosis, or edema. Right lower extremity amputated, pt with AKA. BACK: Nontender without obvious deformity. No CVA tenderness. Procedures EGD Surgical debridement of her right stump. Medications and IVs Current Medications Medications (Trade) Dose Ordered Sig/Seng Route Start Time Stop Time Status Last Admin (Milk Of Magnesia Liq) 30 ml Q12H PRN PO 01/20/17 16:45 01/23/17 18:20 (Senokot) 17.2 mg Q12H PRN PO 01/20/17 16:45 (Dulcolax Supp) 10 mg DAILY PRN RECTAL 01/20/17 16:45 (Lactulose Liq) 30 ml DAILY PRN PO 01/20/17 16:45 (Msir) 15 mg Q4H PRN PO 01/21/17 03:30 01/30/17 16:23 (Tylenol) 650 mg Q4H PRN PO 01/21/17 03:30 (D50w (Vial) Inj) 50 ml UNSCH PRN IV 01/21/17 07:45 (Glucagon Inj) 1 mg UNSCH PRN OTHER 01/21/17 07:45 (Protonix) 40 mg DAILY PO 01/22/17 09:00 01/30/17 08:08 (Cordarone) 200 mg DAILY PO 01/23/17 09:00 01/30/17 08:08 (Aspirin Chew) 81 mg DAILY PO 01/23/17 09:00 01/30/17 08:08 (Lipitor) 40 mg HS PO 01/22/17 21:00 01/29/17 21:33 (Coreg) 6.25 mg Q12HR PO 01/22/17 21:00 01/29/17 21:34 (Cymbalta Dr) 60 mg BID PO 01/22/17 21:00 01/30/17 08:08 (Glucophage) 500 mg BIDPC PO 01/22/17 18:00 01/30/17 08:08 (Singulair) 10 mg HS PO 01/22/17 21:00 01/29/17 21:33 (Vitamin D3) 5,000 units DAILY PO 01/23/17 09:00 01/30/17 08:08 Gabapentin 400 mg 400 mg Q6HR PO 01/24/17 18:00 01/30/17 11:07 (Vancomycin Consult Pharmacy) 0 ml @ 0 mls/hr UNSCH OTHER 01/27/17 14:45 (Heparin Inj) 5,000 units Q12HR SQ 01/28/17 21:00 01/30/17 08:08 (Dilaudid) 1 mg Q4H PRN PO 01/28/17 12:30 Hydromorphone HCl 0.2 mg 0.2 mg Q4HR PRN IV PUSH 01/29/17 12:00 01/30/17 13:22 (Vancomycin Inj/ NS 250 ml Inj) 258.5 ml @ 250 mls/hr Q12H IV 01/30/17 11:00 01/30/17 11:07 Miscellaneous Information SPECIFIC LAB TO BE SHAHLA... ONCE ONCE .XX 01/31/17 10:45 01/31/17 10:46 Urinary Catheter: Yes Assessment to: Continue Avendano insert reason: Prolonged Immobilization A/P Problem List: (1) Anemia due to acute blood loss ICD Code: D62 Status: Acute (2) Diabetes mellitus ICD Code: E11.9 Status: Chronic Assessment and Plan 61 yo female with history of DM, Coronary Artery Disease, Breast Cancer, Morbid obesity, and systemic lupus. She initially underwent right above the knee amputation on January 13, 2017. 1)Resp failure. Resolved off BiPAP 2)Severe anemia secondary to acute blood loss. Improved with 4 units of packed RBC. Monitor CBC. EGD shows evidence of gastric bypass. Gastroparesis. Biopsy taken to rule out H. pylori which is negative. Follow up pathology with chronic gastritis. Ct PPI. If symptomatic with regards to gastroparesis start Reglan. Minimize use of narcotics 3)ALFREDO- improved. Discontinue Avendano catheter 4)s/p Right AKA. Wound care. Continue physical therapy to work on transfers. Continue pain management including Neurontin, Percocet and morphine. I will increase frequency of IV Dilaudid for the next 2 days as needed for breakthrough pain. Patient counseled. Has dehiscence with pus discharge. Hx MRSA and MDR PSAE. F/u cx which grew MRSA again ct IV Vanco. Consulted ID who placed her on Vancomycin until 02/12/17. Vascular surgery took pt to OR for debridement and wd vac 01/29/17 5)CHF/Cardiomyopathy with EF 25-30%. Stable. CHF education, I/O and monitor weight 6)PVD. Stable continue aspirin 7)diabetes mellitus. Monitor fingersticks with sliding scale coverage. Stable continue metformin 500 mg daily. 8)hypokalemia and hypomagnesemia. Replaced potassium and magnesium. Repeat magnesium and potassium improved 9) Colostomy care. 10)GI prophylaxis with PPI. DVT prophylaxis with SCD and out of bed. S/P EGD, AC prophylaxis with subcutaneous heparin if ok with Dr Cooper post operatively Case discussed with pt, RN (Halie) and Dr. Potter. Discharge Planning Not safe for home discharge at this time. She wants to be transferred to where her family lives nearby Arsen Conn Jr. Jan 30, 2017 17:16
[2017-01-30] MEDS: ATORVASTATIN 40 MG TAB PO SCH (20:54)
[2017-01-30] MEDS: MONTELUKAST SODIUM 10 MG TAB PO SCH (20:58)
--- NOTE | 2017-01-30 22:24 | MP ---
cc: MD ASHU,GLORY DATE OF SURGERY 01/29/2017 PREOPERATIVE DIAGNOSIS Peripheral vascular disease, dehiscence of the right AKA stump, soiling by stool and urine. POSTOPERATIVE DIAGNOSIS Peripheral vascular disease, dehiscence of the right AKA stump, soiling by stool and urine. OPERATIVE PROCEDURE Debridement revision of right AKA, wound VAC placement. SURGEON MD Ashu ANESTHESIA General. ESTIMATED BLOOD LOSS 30 cc. PROCEDURE IN DETAIL The patient prepped and draped in the usual fashion. Area is inspected. Medial portion of the stump is healed well. Lateral portion had fallen apart partially. There is some drainage through the tissue but it is granulating. The skin appears to be somewhat grungy, however, viable. Skin is now debrided with sharp 10 blade and a small segment of the skin removed. Some underlying soft tissue appears to be inflamed and other appears to be nonviable. Nonviable tissue is removed. Area irrigated with copious amounts of saline using pulse lavage. This leaves a fairly clean tissue behind. The wound VAC is applied and the patient taken out of the operating room in stable condition. Glory RICK/GERA /12:17 PM /10:19 PM
[2017-01-31] VITALS (8 sets, daily range): BP systolic 104–123; BP diastolic 50–64; PULSE 68–73; RESP 18–20; TEMP 97.5–98.7; O2SAT 71–99
[2017-01-31] MEDS: MORPHINE SULFATE 15 MG TAB PO PRN ×5 (00:53→22:23)
[2017-01-31] MEDS: HYDROmorphone HCL PF 1 MG/ML VIAL IV PUSH PRN ×5 (02:53→20:20)
[2017-01-31] MEDS: GABAPENTIN 400 MG CAP PO SCH ×3 (05:19→18:07)
[2017-01-31] MEDS: INSULIN ASPART SUPPLEMENTAL SCALE SQ SCH ×4 (06:07→20:19)
--- NOTE | 2017-01-31 08:58 | PD.WCN.NOT ---
Wound Consult Description: Followed up on patient for Right AKA with wound VAC placement by Dr Cooper. Patient sitting up in bed eating breakfast with wound vac in place. Orders are for dressing changes Friday and . Wound is being managed by Dr Cooper. Patient is tolerating wound VAC well with complaints of tenderness at site. Neg Pressure Wound Therapy Wound Location Wound Location: Right AKA Settings Suction: 125 mmHg, Continuous Intensity: Low Additonal Information Wound VAC in place. Machine alarming blockage when entering room with 75 mmHg showing. Dressing was reinforced with no leak noted on wound VAC machine with settings currently @125mmHg low continuous suction. Sabrina Ho [facility] Jan 31, 2017 08:58
[2017-01-31] MEDS: CHOLECALCIFEROL (VIT D3) 5000 UNIT CAP PO SCH (09:33)
[2017-01-31] MEDS: PANTOPRAZOLE SOD 40 MG DELAYED RELEASE TAB PO SCH (09:33)
[2017-01-31] MEDS: HEPARIN SODIUM - SQ 10,000 UNITS/ML VIAL SQ SCH ×2 (09:34→20:19)
[2017-01-31] MEDS: AMIODARONE 200 MG TAB PO SCH (09:34)
[2017-01-31] MEDS: DULoxetine HCl DR 60 MG CAP PO SCH ×2 (09:34→20:18)
[2017-01-31] MEDS: metFORMIN HCL 500 MG TAB PO SCH (09:34)
[2017-01-31] MEDS: ASPIRIN 81 MG CHEW TAB PO SCH (09:34)
[2017-01-31] MEDS: CARVEDILOL 6.25 MG TAB PO SCH ×2 (09:34→20:18)
[2017-01-31] MEDS ORDERED: PHARMACY ORDERED LAB ONE (10:45)
[2017-01-31] MEDS: VANCOMYCIN INJ 850 MG in SODIUM CHLOR 0.9% 250 ML INJ 250 ML IV SCH (11:42)
--- NOTE | 2017-01-31 12:52 | PD.WCN.NOT ---
Wound Consult Description: Called back into room by RN stating the machine was not working properly again with alarm stating blockage and shutting off. Communicated with: ANTHONY Huynh Recommendation: When placing sensitrac pad onto dressing, cut a large hole the size of the trac pad itself for proper sensor readings. Additional Information: Wound VAC assessed, trac pad removed to reveal an X had been cut in VAC drape that secured the black granufoam in place, prior to placing trac pad onto black foam. This caused the machine to read blockage. A small dressing was ordered and obtained from [facility]. A larger hole was cut in the VAC drape to allow the entire new sensitrac pad to come into contact with the black foam to allow the sensors on the trac pad to read properly. Machine started and wound VAC began working properly without any large leaks and no alarms sounding off. Neg Pressure Wound Therapy Wound Location Wound Location: Followed up on patient for Right AKA with wound VAC placement by Dr Cooper. Patient sitting up in bed eating breakfast with wound vac in place. Orders are for dressing changes Friday and . Wound is being managed by Dr Cooper. Patient is tolerating wound VAC well with complaints of tenderness at site. Settings Suction: 125 mmHg, Continuous Intensity: Low [facility]abrina [facility] Jan 31, 2017 12:52
--- NOTE | 2017-01-31 14:40 | HHI.PR ---
Subjective Remarks Follow-up infected AKA stump. Pt reported pain being poorly controlled. Stated pain interfered with sleep last night. Pain reported to be in the "6 to 7" range and will spike to "10 out of 10." She denied fever, cough, shortness of breath, NVD, or bloody urine or stool. Pt reported having been seen by PT "only once or twice" and requested services 5 days per week. Per RN (Amina) no acute issues developed over night or since start of shift. Objective Vitals Vital Signs Date Time Temp Pulse Resp B/P Pulse Ox O2 Delivery O2 Flow Rate FiO2 01/31/17 08:00 97.5 70 20 114/56 99 01/31/17 04:00 98.7 72 20 116/64 95 01/31/17 00:00 97.8 71 20 116/56 71 01/30/17 20:18 73 01/30/17 20:00 97.9 72 19 109/55 99 01/30/17 19:45 Room Air 01/30/17 16:01 97.5 64 18 111/58 96 01/30/17 15:12 82 I/O 01/30/17 01/30/17 01/30/17 01/31/17 01/31/17 01/31/17 07:00 15:00 23:00 07:00 15:00 23:00 Intake Total 370 ml 720 ml 370 ml 120 ml Output Total 1650 ml 750 ml 1150 ml 950 ml Balance -1280 ml -30 ml -780 ml -830 ml Intake Oral 120 ml 720 ml 120 ml 120 ml IV Total 250 ml 250 ml Output Urine Total 1650 ml 750 ml 1150 ml 950 ml # Bowel Movements 1 0 Result Diagram: 01/28/17 0940 01/30/17 0719 Imaging Last Impressions Head CT 01/20/17 0000 Signed Impressions: Service Date/Time: Friday, January 20, 2017 18:51 - CONCLUSION: No acute intracranial abnormality is identified. Femi Barron MD Chest X-Ray 01/20/17 0000 Signed Impressions: Service Date/Time: Friday, January 20, 2017 16:17 - CONCLUSION: Persistent diffuse increased interstitial markings likely representing some edema. These findings appear less prominent than they did on the prior exam. Femi Camejo MD Objective Remarks GENERAL: pt encountered sitting a bed, reporting pain, NAD. Pt's affect much brighter. SKIN: Warm and dry. well healed surgical scar on pt's back (right flank). Recent surgical wound continuing to drain with wound vac in place, nearly 200 bloody fluid noted. HEAD: Normocephalic. EYES: No scleral icterus. No injection or drainage. NECK: Supple, trachea midline. No lymphadenopathy. CARDIOVASCULAR: Regular rate and rhythm without murmurs, gallops, or rubs. RESPIRATORY: Breath sounds equal bilaterally. No accessory muscle use. GASTROINTESTINAL: Abdomen soft, non-tender, nondistended. MUSCULOSKELETAL: No cyanosis, or edema. Right lower extremity amputated, pt with AKA. BACK: Nontender without obvious deformity. No CVA tenderness. Procedures EGD Surgical debridement of her right stump. Medications and IVs Current Medications Medications (Trade) Dose Ordered Sig/Seng Route Start Time Stop Time Status Last Admin (Milk Of Magnesia Liq) 30 ml Q12H PRN PO 01/20/17 16:45 01/23/17 18:20 (Senokot) 17.2 mg Q12H PRN PO 01/20/17 16:45 (Dulcolax Supp) 10 mg DAILY PRN RECTAL 01/20/17 16:45 (Lactulose Liq) 30 ml DAILY PRN PO 01/20/17 16:45 (Msir) 15 mg Q4H PRN PO 01/21/17 03:30 01/31/17 14:02 (Tylenol) 650 mg Q4H PRN PO 01/21/17 03:30 (D50w (Vial) Inj) 50 ml UNSCH PRN IV 01/21/17 07:45 (Glucagon Inj) 1 mg UNSCH PRN OTHER 01/21/17 07:45 (Protonix) 40 mg DAILY PO 01/22/17 09:00 01/31/17 09:33 (Cordarone) 200 mg DAILY PO 01/23/17 09:00 01/31/17 09:34 (Aspirin Chew) 81 mg DAILY PO 01/23/17 09:00 01/31/17 09:34 (Lipitor) 40 mg HS PO 01/22/17 21:00 01/30/17 20:54 (Coreg) 6.25 mg Q12HR PO 01/22/17 21:00 01/31/17 09:34 (Cymbalta Dr) 60 mg BID PO 01/22/17 21:00 01/31/17 09:34 (Singulair) 10 mg HS PO 01/22/17 21:00 01/30/17 20:58 (Vitamin D3) 5,000 units DAILY PO 01/23/17 09:00 01/31/17 09:33 Gabapentin 400 mg 400 mg Q6HR PO 01/24/17 18:00 01/31/17 11:46 (Vancomycin Consult Pharmacy) 0 ml @ 0 mls/hr UNSCH OTHER 01/27/17 14:45 (Heparin Inj) 5,000 units Q12HR SQ 01/28/17 21:00 01/31/17 09:34 (Dilaudid) 1 mg Q4H PRN PO 01/28/17 12:30 Hydromorphone HCl 0.2 mg 0.2 mg Q4HR PRN IV PUSH 01/29/17 12:00 01/31/17 11:43 (Vancomycin Inj/ NS 250 ml Inj) 258.5 ml @ 250 mls/hr Q12H IV 01/30/17 11:00 Hold 01/31/17 11:42 (Glucophage) 500 mg DAILY PO 01/31/17 09:00 01/31/17 09:34 Urinary Catheter: No A/P Problem List: (1) Anemia due to acute blood loss ICD Code: D62 Status: Acute (2) Diabetes mellitus ICD Code: E11.9 Status: Chronic Assessment and Plan 61 yo female with history of DM, Coronary Artery Disease, Breast Cancer, Morbid obesity, and systemic lupus. She initially underwent right above the knee amputation on January 13, 2017. 1)Resp failure. Resolved off BiPAP 2)Severe anemia secondary to acute blood loss. Improved with 4 units of packed RBC. Monitor CBC. EGD shows evidence of gastric bypass. Gastroparesis. Biopsy taken to rule out H. pylori which is negative. Follow up pathology with chronic gastritis. Ct PPI. If symptomatic with regards to gastroparesis start Reglan. Minimize use of narcotics 3)ALFREDO- improved. Avendano catheter discontinued. 4)s/p Right AKA. Wound care. Continue physical therapy to work on transfers. Continue pain management including Neurontin, Percocet and morphine. I will increase frequency of IV Dilaudid for the next 2 days as needed for breakthrough pain. Patient counseled. Has dehiscence with pus discharge. Hx MRSA and MDR PSAE. F/u cx which grew MRSA again ct IV Vanco. Consulted ID who placed her on Vancomycin until 02/12/17. Vancomycin levels being followed. Vascular surgery took pt to OR for debridement and wd vac 01/29/17 5)CHF/Cardiomyopathy with EF 25-30%. Stable. CHF education, I/O and monitor weight 6)PVD. Stable continue aspirin 7)diabetes mellitus. Monitor fingersticks with sliding scale coverage. Stable continue metformin 500 mg daily. 8)hypokalemia and hypomagnesemia. Replaced potassium and magnesium. Repeat magnesium and potassium improved 9) Colostomy care. 10)GI prophylaxis with PPI. DVT prophylaxis with SCD and out of bed. S/P EGD, AC prophylaxis with subcutaneous heparin if ok with Dr Cooper post operatively Case discussed with pt, RN (Amina) and Dr. Potter. Discharge Planning Not safe for home discharge at this time. She wants to be transferred to [place] where her family lives [place] but transfer can't be completed at this time due to lack of available beds. Arsen oCnn Jr. HUMAIRA Jan 31, 2017 14:40
[2017-01-31] MEDS: MONTELUKAST SODIUM 10 MG TAB PO SCH (20:18)
[2017-01-31] MEDS: ATORVASTATIN 40 MG TAB PO SCH (20:18)
[2017-02-01] VITALS (7 sets, daily range): BP systolic 104–140; BP diastolic 55–64; PULSE 63–78; RESP 16–19; TEMP 97.3–98.7; O2SAT 94–99
[2017-02-01] MEDS: HYDROmorphone HCL PF 1 MG/ML VIAL IV PUSH PRN ×2 (00:41→06:52)
[2017-02-01] MEDS: GABAPENTIN 400 MG CAP PO SCH ×5 (00:41→23:48)
[2017-02-01] MEDS: MORPHINE SULFATE 15 MG TAB PO PRN ×4 (04:40→23:49)
[2017-02-01 06:24] LABS: HEMATOCRIT 40.1 % (35.0-46.0); MEAN CELL VOLUME 86.8 FL (80.0-100.0); MEAN CORPUSCULAR HEMOGLOBIN 28.5 PG (27.0-34.0); MEAN CORPUSCULAR HGB CONC 32.8 % (32.0-36.0); PLATELET COUNT 259 TH/MM3 (150-450); RED BLOOD COUNT 4.61 MIL/MM3 (4.00-5.30); RED CELL DISTRIBUTION WIDTH 15.4 % (11.6-17.2); REVIEW FLAG FINAL; WHITE BLOOD COUNT 7.6 TH/MM3 (4.0-11.0)
[2017-02-01 06:26] LABS: BICARBONATE 31.3 MEQ/L (21.0-32.0); POTASSIUM 4.2 MEQ/L (3.5-5.1)
[2017-02-01] MEDS: INSULIN ASPART SUPPLEMENTAL SCALE SQ SCH ×4 (06:54→21:00)
[2017-02-01] MEDS: AMIODARONE 200 MG TAB PO SCH (08:53)
[2017-02-01] MEDS: CHOLECALCIFEROL (VIT D3) 5000 UNIT CAP PO SCH (08:53)
[2017-02-01] MEDS: ASPIRIN 81 MG CHEW TAB PO SCH (08:54)
[2017-02-01] MEDS: metFORMIN HCL 500 MG TAB PO SCH (08:54)
[2017-02-01] MEDS: CARVEDILOL 6.25 MG TAB PO SCH ×2 (08:54→21:27)
[2017-02-01] MEDS: PANTOPRAZOLE SOD 40 MG DELAYED RELEASE TAB PO SCH (08:54)
[2017-02-01] MEDS: DULoxetine HCl DR 60 MG CAP PO SCH ×2 (08:54→21:27)
[2017-02-01] MEDS: HEPARIN SODIUM - SQ 10,000 UNITS/ML VIAL SQ SCH ×2 (08:54→21:29)
[2017-02-01] MEDS: HYDROmorphone HCL 2 MG TAB PO PRN ×3 (11:02→21:28)
[2017-02-01] MEDS: VANCOMYCIN 1,000 MG/NS 250 ML IV SCH ×2 (14:35)
--- NOTE | 2017-02-01 17:12 | HHI.PR ---
Subjective Remarks Follow-up infected AKA stump. Pt reported pain being poorly controlled. pain regimen discussed with pt. Stated pain interfered with sleep last night. Pain is also reported to decrease appetite. She denied fever, cough, shortness of breath, NVD, or bloody urine or stool. Pt reported having been seen by PT "only once or twice" and requested services 5 days per week. Per RN (Priya) no acute issues developed over night or since start of shift. Objective Vitals Vital Signs Date Time Temp Pulse Resp B/P Pulse Ox O2 Delivery O2 Flow Rate FiO2 02/01/17 12:07 69 02/01/17 12:00 98.0 63 18 110/55 94 02/01/17 09:00 Room Air 02/01/17 08:00 97.8 78 18 104/59 98 02/01/17 04:00 97.3 71 18 130/60 98 02/01/17 00:00 98.0 70 18 140/64 96 01/31/17 20:17 73 01/31/17 20:00 Room Air 01/31/17 20:00 98.0 71 18 114/60 98 01/31/17 19:47 20 01/31/17 19:47 20 I/O 01/31/17 01/31/17 01/31/17 02/01/17 02/01/17 02/01/17 07:00 15:00 23:00 07:00 15:00 23:00 Intake Total 120 ml 1020 ml 600 ml 360 ml Output Total 950 ml 650 ml 900 ml 1100 ml 1300 ml Balance -830 ml 370 ml -300 ml -740 ml -1300 ml Intake Oral 120 ml 1020 ml 600 ml 360 ml Output Urine Total 950 ml 650 ml 900 ml 1100 ml 1300 ml Stool Total 0 ml # Bowel Movements 1 0 0 Result Diagram: 02/01/17 0458 02/01/17 0458 Objective Remarks GENERAL: pt encountered sitting up in bed, reporting pain, NAD. Pt's affect much brighter. SKIN: Warm and dry. well healed surgical scar on pt's back (right flank). Recent surgical wound continuing to drain with wound vac in place, nearly 250 cc bloody fluid noted. HEAD: Normocephalic. EYES: No scleral icterus. No injection or drainage. NECK: Supple, trachea midline. No lymphadenopathy. CARDIOVASCULAR: Regular rate and rhythm without murmurs, gallops, or rubs. RESPIRATORY: Breath sounds equal bilaterally. No accessory muscle use. GASTROINTESTINAL: Abdomen soft, non-tender, nondistended. MUSCULOSKELETAL: No cyanosis, or edema. Right lower extremity amputated, pt with AKA. BACK: Nontender without obvious deformity. No CVA tenderness. Procedures EGD Surgical debridement of her right stump. Medications and IVs Current Medications Medications (Trade) Dose Ordered Sig/Seng Route Start Time Stop Time Status Last Admin (Milk Of Magnesia Liq) 30 ml Q12H PRN PO 01/20/17 16:45 01/23/17 18:20 (Senokot) 17.2 mg Q12H PRN PO 01/20/17 16:45 (Dulcolax Supp) 10 mg DAILY PRN RECTAL 01/20/17 16:45 (Lactulose Liq) 30 ml DAILY PRN PO 01/20/17 16:45 (Msir) 15 mg Q4H PRN PO 01/21/17 03:30 02/01/17 14:35 (Tylenol) 650 mg Q4H PRN PO 01/21/17 03:30 (D50w (Vial) Inj) 50 ml UNSCH PRN IV 01/21/17 07:45 (Glucagon Inj) 1 mg UNSCH PRN OTHER 01/21/17 07:45 (Protonix) 40 mg DAILY PO 01/22/17 09:00 02/01/17 08:54 (Cordarone) 200 mg DAILY PO 01/23/17 09:00 02/01/17 08:53 (Aspirin Chew) 81 mg DAILY PO 01/23/17 09:00 02/01/17 08:54 (Lipitor) 40 mg HS PO 01/22/17 21:00 01/31/17 20:18 (Coreg) 6.25 mg Q12HR PO 01/22/17 21:00 01/31/17 20:18 (Cymbalta Dr) 60 mg BID PO 01/22/17 21:00 02/01/17 08:54 (Singulair) 10 mg HS PO 01/22/17 21:00 01/31/17 20:18 (Vitamin D3) 5,000 units DAILY PO 01/23/17 09:00 02/01/17 08:53 Gabapentin 400 mg 400 mg Q6HR PO 01/24/17 18:00 02/01/17 16:39 (Vancomycin Consult Pharmacy) 0 ml @ 0 mls/hr UNSCH OTHER 01/27/17 14:45 (Heparin Inj) 5,000 units Q12HR SQ 01/28/17 21:00 02/01/17 08:54 (Dilaudid) 1 mg Q4H PRN PO 01/28/17 12:30 02/01/17 16:40 Metformin HCl 500 mg 500 mg DAILY PO 01/31/17 09:00 02/01/17 08:54 (Vancomycin Inj/ NS 250 ml Inj) 250 ml @ 250 mls/hr Q18H IV 02/01/17 14:00 02/01/17 14:35 Miscellaneous Information SPECIFIC LAB TO BE ... ONCE ONCE .XX 02/03/17 19:45 02/03/17 19:46 Urinary Catheter: No A/P Problem List: (1) Anemia due to acute blood loss ICD Code: D62 Status: Acute (2) Diabetes mellitus ICD Code: E11.9 Status: Chronic Assessment and Plan 61 yo female with history of DM, Coronary Artery Disease, Breast Cancer, Morbid obesity, and systemic lupus. She initially underwent right above the knee amputation on January 13, 2017. 1)Resp failure. Resolved off BiPAP 2)Severe anemia secondary to acute blood loss. Improved with 4 units of packed RBC. Monitor CBC. EGD shows evidence of gastric bypass. Gastroparesis. Biopsy taken to rule out H. pylori which is negative. Follow up pathology with chronic gastritis. Ct PPI. If symptomatic with regards to gastroparesis start Reglan. Minimize use of narcotics 3)ALFREDO- improved. Avendano catheter discontinued. 4)s/p Right AKA. Wound care. Continue physical therapy to work on transfers. Continue pain management including Neurontin, Percocet and morphine. I will increase frequency of IV Dilaudid for the next 2 days as needed for breakthrough pain. Patient counseled. Has dehiscence with pus discharge. Hx MRSA and MDR PSAE. F/u cx which grew MRSA again ct IV Vanco. Consulted ID who placed her on Vancomycin until 02/12/17. Vancomycin levels being followed. Vascular surgery took pt to OR for debridement and wd vac 01/29/17. Pain medication adjusted. 5)CHF/Cardiomyopathy with EF 25-30%. Stable. CHF education, I/O and monitor weight 6)PVD. Stable continue aspirin 7)diabetes mellitus. Monitor fingersticks with sliding scale coverage. Stable continue metformin 500 mg daily. 8)hypokalemia and hypomagnesemia. Replaced potassium and magnesium. Repeat magnesium and potassium improved 9) Colostomy care. 10)GI prophylaxis with PPI. DVT prophylaxis with SCD and out of bed. S/P EGD, AC prophylaxis with subcutaneous heparin if ok with Dr Cooper post operatively Case discussed with pt, RN (Priya) and Dr. Potter. Discharge Planning Not safe for home discharge at this time. She wants to be transferred to [place] where her family lives nearby but transfer can't be completed at this time due to lack of available beds. Arsen Conn Jr. HUMAIRA Feb 01, 2017 17:12
[2017-02-01] MEDS: ATORVASTATIN 40 MG TAB PO SCH (21:28)
[2017-02-01] MEDS: MONTELUKAST SODIUM 10 MG TAB PO SCH (21:30)
[2017-02-02] VITALS (8 sets, daily range): BP systolic 102–137; BP diastolic 53–63; PULSE 62–70; RESP 16–20; TEMP 97.4–99.5; O2SAT 94–100
[2017-02-02] MEDS: HYDROmorphone HCL 2 MG TAB PO PRN ×4 (03:31→22:07)
[2017-02-02] MEDS: MORPHINE SULFATE 15 MG TAB PO PRN ×3 (05:14→17:54)
[2017-02-02] MEDS: GABAPENTIN 400 MG CAP PO SCH ×4 (05:14→23:47)
[2017-02-02] MEDS: INSULIN ASPART SUPPLEMENTAL SCALE SQ SCH (05:59)
[2017-02-02] MEDS: metFORMIN HCL 500 MG TAB PO SCH (08:20)
[2017-02-02] MEDS: VANCOMYCIN 1,000 MG/NS 250 ML IV SCH ×2 (08:20)
[2017-02-02] MEDS: CHOLECALCIFEROL (VIT D3) 5000 UNIT CAP PO SCH (08:20)
[2017-02-02] MEDS: AMIODARONE 200 MG TAB PO SCH (08:20)
[2017-02-02] MEDS: PANTOPRAZOLE SOD 40 MG DELAYED RELEASE TAB PO SCH (08:20)
[2017-02-02] MEDS: DULoxetine HCl DR 60 MG CAP PO SCH ×2 (08:20→20:21)
[2017-02-02] MEDS: ASPIRIN 81 MG CHEW TAB PO SCH (08:21)
[2017-02-02] MEDS: HEPARIN SODIUM - SQ 10,000 UNITS/ML VIAL SQ SCH ×2 (08:21→20:22)
[2017-02-02] MEDS: CARVEDILOL 6.25 MG TAB PO SCH ×2 (08:22→20:21)
[2017-02-02] MEDS: oxyCODONE/ACETAMINOPHEN 10 MG/325 MG TAB PO SCH ×2 (13:22→20:21)
--- NOTE | 2017-02-02 15:38 | HHI.PR ---
Subjective Remarks Follow-up infected AKA stump. Pt reported pain being better controlled. Pain regimen discussed. Pt requested going to her home medication regimen of Percocet 10/325 every 6 hrs. Pt noted her goals for PT: being able to stand and pivot, transition to sliding board and transition to wheelchair. She denied fever, cough, shortness of breath, NVD, or bloody urine or stool. Per RN (Priya) no acute issues developed over night or since start of shift. Objective Vitals Vital Signs Date Time Temp Pulse Resp B/P Pulse Ox O2 Delivery O2 Flow Rate FiO2 02/02/17 12:00 98.3 62 20 116/57 100 02/02/17 08:32 67 02/02/17 08:32 Room Air 02/02/17 08:00 97.4 64 20 137/63 100 02/02/17 04:00 97.5 66 18 110/53 95 02/02/17 00:45 18 02/02/17 00:00 97.7 70 16 102/62 96 02/01/17 22:25 18 02/01/17 20:00 97.5 71 16 119/57 98 02/01/17 16:00 98.7 68 19 127/59 99 I/O 02/01/17 02/01/17 02/01/17 02/02/17 02/02/17 02/02/17 07:00 15:00 23:00 07:00 15:00 23:00 Intake Total 360 ml 420 ml 480 ml Output Total 1100 ml 1300 ml 1075 ml 1000 ml Balance -740 ml -1300 ml -655 ml -520 ml Intake Oral 360 ml 420 ml 480 ml Output Urine Total 1100 ml 1300 ml 1075 ml 1000 ml Stool Total 0 ml # Bowel Movements 0 0 0 Result Diagram: 02/01/17 0458 02/01/17 0458 Objective Remarks GENERAL: pt encountered sitting up in bed, reporting pain, NAD. Pt's affect much brighter. pleasant and cooperative SKIN: Warm and dry. well healed surgical scar on pt's back (right flank). Recent surgical wound continuing to drain with wound vac in place, nearly 280- 300 cc bloody fluid noted. HEAD: Normocephalic. EYES: No scleral icterus. No injection or drainage. NECK: Supple, trachea midline. No lymphadenopathy. CARDIOVASCULAR: Regular rate and rhythm without murmurs, gallops, or rubs. RESPIRATORY: Breath sounds equal bilaterally. No accessory muscle use. GASTROINTESTINAL: Abdomen soft, non-tender, nondistended. MUSCULOSKELETAL: No cyanosis, or edema. Right lower extremity amputated, pt with AKA. BACK: Nontender without obvious deformity. No CVA tenderness. Procedures EGD Surgical debridement of her right stump. Medications and IVs Current Medications Medications (Trade) Dose Ordered Sig/Seng Route Start Time Stop Time Status Last Admin (Milk Of Magnesia Liq) 30 ml Q12H PRN PO 01/20/17 16:45 01/23/17 18:20 (Senokot) 17.2 mg Q12H PRN PO 01/20/17 16:45 (Dulcolax Supp) 10 mg DAILY PRN RECTAL 01/20/17 16:45 (Lactulose Liq) 30 ml DAILY PRN PO 01/20/17 16:45 (Msir) 15 mg Q4H PRN PO 01/21/17 03:30 02/02/17 10:36 (Tylenol) 650 mg Q4H PRN PO 01/21/17 03:30 (Protonix) 40 mg DAILY PO 01/22/17 09:00 02/02/17 08:20 (Cordarone) 200 mg DAILY PO 01/23/17 09:00 02/02/17 08:20 (Aspirin Chew) 81 mg DAILY PO 01/23/17 09:00 02/02/17 08:21 (Lipitor) 40 mg HS PO 01/22/17 21:00 02/01/17 21:28 (Coreg) 6.25 mg Q12HR PO 01/22/17 21:00 02/02/17 08:22 (Cymbalta Dr) 60 mg BID PO 01/22/17 21:00 02/02/17 08:20 (Singulair) 10 mg HS PO 01/22/17 21:00 02/01/17 21:30 (Vitamin D3) 5,000 units DAILY PO 01/23/17 09:00 02/02/17 08:20 Gabapentin 400 mg 400 mg Q6HR PO 01/24/17 18:00 02/02/17 13:22 (Vancomycin Consult Pharmacy) 0 ml @ 0 mls/hr UNSCH OTHER 01/27/17 14:45 (Heparin Inj) 5,000 units Q12HR SQ 01/28/17 21:00 02/02/17 08:21 (Dilaudid) 1 mg Q4H PRN PO 01/28/17 12:30 02/02/17 08:25 Metformin HCl 500 mg 500 mg DAILY PO 01/31/17 09:00 02/02/17 08:20 (Vancomycin Inj/ NS 250 ml Inj) 250 ml @ 250 mls/hr Q18H IV 02/01/17 14:00 02/02/17 08:20 Miscellaneous Information SPECIFIC LAB TO BE SHAHLA... ONCE ONCE .XX 02/03/17 19:45 02/03/17 19:46 (Percocet 10-325 Mg) 1 tab Q6H PO 02/02/17 14:00 02/02/17 13:22 (Dilaudid Pf Inj) 0.2 mg MoTh IV PUSH 02/03/17 13:00 Urinary Catheter: No A/P Problem List: (1) Anemia due to acute blood loss ICD Code: D62 Status: Acute (2) Diabetes mellitus ICD Code: E11.9 Status: Chronic Assessment and Plan 61 yo female with history of DM, Coronary Artery Disease, Breast Cancer, Morbid obesity, and systemic lupus. She initially underwent right above the knee amputation on January 13, 2017. 1)Resp failure. Resolved off BiPAP 2)Severe anemia secondary to acute blood loss. Improved with 4 units of packed RBC. Monitor CBC. EGD shows evidence of gastric bypass. Gastroparesis. Biopsy taken to rule out H. pylori which is negative. Follow up pathology with chronic gastritis. Ct PPI. If symptomatic with regards to gastroparesis start Reglan. Minimize use of narcotics 3)ALFREDO- improved. Avendano catheter discontinued. 4)s/p Right AKA. Wound care. Continue physical therapy to work on transfers. Continue pain management including Neurontin, Percocet and morphine. I will increase frequency of IV Dilaudid for the next 2 days as needed for breakthrough pain. Patient counseled. Has dehiscence with pus discharge. Hx MRSA and MDR PSAE. F/u cx which grew MRSA again ct IV Vanco. Consulted ID who placed her on Vancomycin until 02/12/17. Vancomycin levels being followed. Vascular surgery took pt to OR for debridement and wd vac 01/29/17. Pain medication adjusted. Initiated pt's home regimen of Percocet 10/325 mg po q 6 hrs. IV Dilaudid 0.2 mg to be used for wound care/dressing changes on Mondays and . Pt has stated her goals for PT. 5)CHF/Cardiomyopathy with EF 25-30%. Stable. CHF education, I/O and monitor weight 6)PVD. Stable continue aspirin 7)diabetes mellitus. Monitor fingersticks with sliding scale coverage. Stable continue metformin 500 mg daily. 8)hypokalemia and hypomagnesemia. Replaced potassium and magnesium. Repeat magnesium and potassium improved 9) Colostomy care. 10)GI prophylaxis with PPI. DVT prophylaxis with SCD and out of bed. S/P EGD, AC prophylaxis with subcutaneous heparin if ok with Dr Cooper post operatively Case discussed with pt, RN (Priya) and Dr. Potter. Discharge Planning Not safe for home discharge at this time. She wants to be transferred to where her family lives nearby but transfer can 't be completed at this time due to lack of available beds. Pt's stated goals 3 for PT. Arsen Conn Jr. Feb 02, 2017 15:38
[2017-02-02] MEDS: MONTELUKAST SODIUM 10 MG TAB PO SCH (20:21)
[2017-02-02] MEDS: ATORVASTATIN 40 MG TAB PO SCH (20:21)
[2017-02-03] VITALS (9 sets, daily range): BP systolic 102–134; BP diastolic 50–68; PULSE 61–80; RESP 16–18; TEMP 97.6–98.3; O2SAT 94–98
[2017-02-03] MEDS: oxyCODONE/ACETAMINOPHEN 10 MG/325 MG TAB PO SCH ×4 (02:35→20:12)
[2017-02-03] MEDS: VANCOMYCIN 1,000 MG/NS 250 ML IV SCH ×4 (02:36→21:07)
[2017-02-03] MEDS: HYDROmorphone HCL 2 MG TAB PO PRN ×4 (04:57→21:07)
[2017-02-03] MEDS: GABAPENTIN 400 MG CAP PO SCH ×3 (04:57→17:06)
[2017-02-03] MEDS: PANTOPRAZOLE SOD 40 MG DELAYED RELEASE TAB PO SCH (08:47)
[2017-02-03] MEDS: metFORMIN HCL 500 MG TAB PO SCH (08:47)
[2017-02-03] MEDS: ASPIRIN 81 MG CHEW TAB PO SCH (08:48)
[2017-02-03] MEDS: CARVEDILOL 6.25 MG TAB PO SCH ×2 (08:48→21:08)
[2017-02-03] MEDS: AMIODARONE 200 MG TAB PO SCH (08:48)
[2017-02-03] MEDS: CHOLECALCIFEROL (VIT D3) 5000 UNIT CAP PO SCH (08:48)
[2017-02-03] MEDS: DULoxetine HCl DR 60 MG CAP PO SCH ×2 (08:49→21:08)
[2017-02-03] MEDS: HEPARIN SODIUM - SQ 10,000 UNITS/ML VIAL SQ SCH ×2 (08:49→21:18)
--- NOTE | 2017-02-03 09:57 | HHI.PR ---
Subjective Remarks Follow-up infected AKA stump. Patient seen and examined today. Patient sitting up in bed comfortably, in no apparent distress. Denies any new acute complaints overnight. Displays motivation to continue working with PT and desires to learn to transfer independently. Tolerating PO intake. Denies any recent fever, chills , cough, shortness of breath, abdominal pain, n/v, diarrhea or dysuria. Spoke to RN, no acute events. Objective Vitals Vital Signs Date Time Temp Pulse Resp B/P Pulse Ox O2 Delivery O2 Flow Rate FiO2 02/03/17 07:00 98.1 66 18 110/56 96 02/03/17 04:45 98.0 73 16 125/60 98 02/03/17 04:00 Room Air 02/03/17 00:15 97.6 66 16 122/55 94 02/03/17 00:00 Room Air 02/02/17 20:25 99.5 68 16 125/58 94 02/02/17 20:00 Room Air 02/02/17 20:00 68 02/02/17 16:00 97.8 63 20 126/56 99 02/02/17 12:00 98.3 62 20 116/57 100 I/O 02/02/17 02/02/17 02/02/17 02/03/17 02/03/17 02/03/17 07:00 15:00 23:00 07:00 15:00 23:00 Intake Total 480 ml 840 ml 600 ml 720 ml Output Total 1000 ml 700 ml 900 ml 950 ml Balance -520 ml 140 ml -300 ml -230 ml Intake Oral 480 ml 840 ml 600 ml 720 ml Output Urine Total 1000 ml 700 ml 900 ml 950 ml # Bowel Movements 0 0 0 Result Diagram: 02/01/17 0458 02/03/17 0620 Imaging Last Impressions Head CT 01/20/17 0000 Signed Impressions: Service Date/Time: Friday, January 20, 2017 18:51 - CONCLUSION: No acute intracranial abnormality is identified. Femi Barron MD Chest X-Ray 01/20/17 0000 Signed Impressions: Service Date/Time: Friday, January 20, 2017 16:17 - CONCLUSION: Persistent diffuse increased interstitial markings likely representing some edema. These findings appear less prominent than they did on the prior exam. Femi Camejo MD Objective Remarks GENERAL: Well-nourished, well-developed patient, sitting in bed in no apparent distress. SKIN: No rashes, warm and dry. Right AK stump wound VAC in place, suction continued, serosanguineous fluid noted. HEAD: Atraumatic. Normocephalic. EYES: Pupils equal round and reactive. Extraocular motions intact. No scleral icterus. ENT: Nose without bleeding, or drainage, Airway patent. NECK: Trachea midline. Supple CARDIOVASCULAR: Regular rate and rhythm. No murmur appreciated. RESPIRATORY: Fair air entry bilaterally. No wheezes, rales, or rhonchi. GASTROINTESTINAL: Abdomen soft, non-tender, nondistended. Positive bowel sounds x 4 q. MUSCULOSKELETAL: Right AKA NEUROLOGICAL: Awake and alert. Moves all extremity. Normal speech. no focal neurological deficit Procedures EGD Surgical debridement of her right stump. Urinary Catheter: No Vascular Central Line Catheter: No A/P Problem List: (1) Anemia due to acute blood loss ICD Code: D62 Status: Acute (2) Diabetes mellitus ICD Code: E11.9 Status: Chronic Assessment and Plan 61 yo female with history of DM, Coronary Artery Disease, Breast Cancer, Morbid obesity, and systemic lupus. She initially underwent right above the knee amputation on January 13, 2017. Status post Right AKA - Wound vac continued. Wound care nurse following, appreciate input. - Continue physical therapy to work on transfers. - Continue pain management. Continue Neurontin. Continue Percocet 10/325 mg PO q6hrs scheduled. Continue Morphine IV and Dilaudid IV PRN per pain scale. - Wound cultures growing MRSA on 01/29/17. - ID following, appreciate input. Recommendations for IV Vancomycin until 07/20. Follow Vanco trough and peaks. Severe anemia secondary to acute blood loss, improved. - Status post 4 units PRBC. - Status post EGD. Biopsy for H. pylori negative. Follow up pathology with chronic gastritis. - No signs or symptoms of bleeding. Monitor. - H/H stable. Systolic congestive heart failure, chronic Chronic dilated cardiomyopathy - ECHO from 11/2016 reviewed showing reduced EF of 25-30%. Mild LVH. Reduced systolic function. - Continue Coreg. - Monitor I/O and daily weight. Peripheral vascular disease, chronic: Stable. Continue aspirin. Type 2 diabetes mellitus, chronic: Continue metformin 500 mg daily. GI prophylaxis: Protonix DVT prophylaxis: SCDs. Heparin 5,000 units sq q12hr. Discharge Planning Discharge to SNF placement pending. Not safe for home discharge at this time, PT still recommending rehab placement. Mari Pugh Feb 03, 2017 09:57 Mari Pugh Feb 03, 2017 09:57 Discharge to SNF placement pending. Not safe for home discharge at this time, PT still recommending rehab placement. Mrai Pguh Feb 03, 2017 09:57
--- NOTE | 2017-02-03 12:03 | PD.WCN.NOT ---
Wound Consult Description: Wound VAC change to right AKA post debridement from Dr Wakefeild Communicated with: ANTHONY Huynh Recommendation: Continue wound VAC changes as ordered by Dr Wakefield Mondays and . Additional Information: Patient seen on for wound VAC change to right AKA with ANTHONY Huynh. Patient was premedicated with pain medication. VAC drape and 2 pieces black granufoam removed from wound bed that was cleansed with NS and gauze. Measurements of right AKA 4cm x 5.5cm x 1cm with ~50% red granulation tissue and ~50% yellow adipose tissue noted throughout wound bed with moderate clear yellow drainage, no odor, and open wound margins. Periwound is unremarkable, however there is a reddened area measuring ~2cm circumferentially that is noted laterally to the wound. Patient states that sometimes she develops redness from the drape. Neg Pressure Wound Therapy Wound Location Wound Location: Right AKA Wound Description Length: 4cm Width: 5.5cm Depth: 1cm Wound bed appearance: ~50% granulation tissue ~50% adipose tissue Periwound appearance: Unremarkable Settings Suction: 125 mmHg, Continuous Intensity: Low Foam type: Black Number of pieces: 1 Additonal Information One piece black foam applied to wound bed, secured with VAC drape and hole cut for sensitrac pad placement. Wound VAC turned on and working properly without leaks and settings @125mmHg low continuous suction. Patient tolerated wound VAC dressing change well with premedication given by ANTHONY Huynh. Next dressing change can be done by floor RN on if patient is not sent home with [facility]. Sabrina Ho [facility] Feb 03, 2017 12:02
[2017-02-03] MEDS ORDERED: HYDROmorphone HCL PF 1 MG/ML VIAL IV PUSH SCH (13:00)
[2017-02-03] MEDS ORDERED: PHARMACY ORDERED LAB ONE (19:45)
[2017-02-03] MEDS: ATORVASTATIN 40 MG TAB PO SCH (21:08)
[2017-02-03] MEDS: MONTELUKAST SODIUM 10 MG TAB PO SCH (21:08)
[2017-02-04] VITALS (7 sets, daily range): BP systolic 112–141; BP diastolic 54–73; PULSE 63–74; RESP 16–21; TEMP 98–98.5; O2SAT 96–99
[2017-02-04] MEDS: GABAPENTIN 400 MG CAP PO SCH ×4 (00:11→16:41)
[2017-02-04] MEDS: oxyCODONE/ACETAMINOPHEN 10 MG/325 MG TAB PO SCH ×4 (02:21→19:52)
[2017-02-04] MEDS: HYDROmorphone HCL 2 MG TAB PO PRN ×4 (03:40→22:07)
[2017-02-04] MEDS: CARVEDILOL 6.25 MG TAB PO SCH ×2 (08:32→19:51)
[2017-02-04] MEDS: CHOLECALCIFEROL (VIT D3) 5000 UNIT CAP PO SCH (08:32)
[2017-02-04] MEDS: DULoxetine HCl DR 60 MG CAP PO SCH ×2 (08:32→19:51)
[2017-02-04] MEDS: AMIODARONE 200 MG TAB PO SCH (08:32)
[2017-02-04] MEDS: PANTOPRAZOLE SOD 40 MG DELAYED RELEASE TAB PO SCH (08:33)
[2017-02-04] MEDS: metFORMIN HCL 500 MG TAB PO SCH (08:33)
[2017-02-04] MEDS: ASPIRIN 81 MG CHEW TAB PO SCH (08:33)
[2017-02-04] MEDS: HEPARIN SODIUM - SQ 10,000 UNITS/ML VIAL SQ SCH ×2 (08:36→19:52)
[2017-02-04] MEDS ORDERED: GETGO ROLLING W1 MI1 (09:13)
--- NOTE | 2017-02-04 09:13 | HHI.PR ---
Subjective Remarks Follow-up infected AKA stump. Patient seen and examined today sitting up in bed , awake, alert, oriented in NAD. Patient pleasant, denies any new acute events overnight. Displays motivation to continue learning transfer mechanics with PT. Tolerating PO intake. Denies any recent fever, chills, cough, shortness of breath, abdominal pain, n/v, diarrhea, or dysuria. Wound vac continued and to suction. Objective Vitals Vital Signs Date Time Temp Pulse Resp B/P Pulse Ox O2 Delivery O2 Flow Rate FiO2 02/04/17 04:53 98.0 74 16 141/73 99 02/04/17 00:00 Room Air 02/03/17 23:55 98.0 70 16 105/55 97 02/03/17 20:38 98.1 68 16 132/68 97 02/03/17 20:00 63 02/03/17 20:00 Room Air 02/03/17 16:00 97.9 80 18 134/60 94 02/03/17 15:19 20 02/03/17 14:00 20 02/03/17 12:55 20 02/03/17 12:00 98.3 80 18 102/50 96 I/O 02/03/17 02/03/17 02/03/17 02/04/17 02/04/17 02/04/17 07:00 15:00 23:00 07:00 15:00 23:00 Intake Total 720 ml 1200 ml 240 ml 480 ml Output Total 950 ml 950 ml 300 ml 750 ml Balance -230 ml 250 ml -60 ml -270 ml Intake Oral 720 ml 1200 ml 240 ml 480 ml Output Urine Total 950 ml 950 ml 300 ml 750 ml # Voids 0 # Bowel Movements 0 1 0 1 Result Diagram: 02/01/17 0458 02/03/17 0620 Imaging Last Impressions Head CT 01/20/17 0000 Signed Impressions: Service Date/Time: Friday, January 20, 2017 18:51 - CONCLUSION: No acute intracranial abnormality is identified. Femi Barron MD Chest X-Ray 01/20/17 0000 Signed Impressions: Service Date/Time: Friday, January 20, 2017 16:17 - CONCLUSION: Persistent diffuse increased interstitial markings likely representing some edema. These findings appear less prominent than they did on the prior exam. Femi Camejo MD Objective Remarks GENERAL: Well-nourished, well-developed patient, sitting in bed in no apparent distress. SKIN: No rashes, warm and dry. Right AK stump wound VAC in place, suction continued, serosanguineous fluid noted. HEAD: Atraumatic. Normocephalic. EYES: Pupils equal round and reactive. Extraocular motions intact. No scleral icterus. ENT: Nose without bleeding, or drainage, Airway patent. NECK: Trachea midline. Supple CARDIOVASCULAR: Regular rate and rhythm. No murmur appreciated. RESPIRATORY: Fair air entry bilaterally. No wheezes, rales, or rhonchi. GASTROINTESTINAL: Abdomen soft, non-tender, nondistended. Positive bowel sounds x 4 q. MUSCULOSKELETAL: Right AKA NEUROLOGICAL: Awake and alert. Moves all extremity. Normal speech. no focal neurological deficit Procedures EGD Surgical debridement of her right stump. Urinary Catheter: No Vascular Central Line Catheter: No A/P Problem List: (1) Anemia due to acute blood loss ICD Code: D62 Status: Acute (2) Diabetes mellitus ICD Code: E11.9 Status: Chronic Assessment and Plan 61 yo female with history of DM, Coronary Artery Disease, Breast Cancer, Morbid obesity, and systemic lupus. She initially underwent right above the knee amputation on January 13, 2017. Status post Right AKA - Wound vac continued. Wound care nurse following, appreciate input. - Continue physical therapy to work on transfers. Patient displaying high motivation to work with PT. - Continue pain management. Continue Neurontin. Continue Percocet 10/325 mg PO q6hrs scheduled. Continue Morphine IV and Dilaudid IV PRN per pain scale. - Wound cultures growing MRSA on 01/29/17. - ID following, appreciate input. Recommendations for IV Vancomycin until 07/20. Follow Vanco trough and peaks. Severe anemia secondary to acute blood loss, improved. - Status post 4 units PRBC. - Status post EGD. Biopsy for H. pylori negative. Follow up pathology with chronic gastritis. - No signs or symptoms of bleeding. Monitor. - H/H stable. Systolic congestive heart failure, chronic Chronic dilated cardiomyopathy - ECHO from 11/2016 reviewed showing reduced EF of 25-30%. Mild LVH. Reduced systolic function. - Continue Coreg. - Monitor I/O and daily weight. Peripheral vascular disease, chronic: Stable. Continue aspirin. Type 2 diabetes mellitus, chronic: Continue metformin 500 mg daily. GI prophylaxis: Protonix DVT prophylaxis: SCDs. Heparin 5,000 units sq q12hr. Discharge Planning Discharge to SNF placement pending. Not safe for home discharge at this time, PT still recommending rehab placement. Mari Pugh Feb 04, 2017 09:13
[2017-02-04] MEDS: VANCOMYCIN 1,000 MG/NS 250 ML IV SCH ×2 (14:04)
--- NOTE | 2017-02-04 17:40 | PD.CAR.PN ---
CVT Progress Note Subjective/Hospital Course: Patient known to me from previous admissions Patient returns to Hospital pale, weak with hemoglobin of 5.8 g/dL Patient left the hospital with hemoglobin of 7 g/dL last week so I didn't take much to drop it 1 or 2 g. Patient is clearly very ill lady with decreased and suppress bone marrow production, on multiple medications and now received 1 L of saline which further diluted her. Patient is NOT bleeding from any source at this time, including her thigh. Stump is clean and dry and high is completely normal in size. This patient does NOT have hemorrhagic shock and no clinical parameters as to the same This patient is severely anemic with decreased oxygen carrying capacity and requires blood transfusion I have discussed this with Dr. Nava in the emergency room. 01/21/17 As stated yesterday patient does not have any bleeding into her thigh and amputation site is clean and dry Abdomen is soft with active bowel sounds Patient's anemia is likely attributable to decreased production in face of multiple medical problems including renal insufficiency Patient does not have hemorrhagic shock and this diagnosis should be changed in the system because this does not correlate with clinical findings Hemoglobin today is 12 g/dL and patient feels better Nothing to add to care this time 01/22/17 Stump clean and dry Hemoglobin stable Nothing to add to care at this time Would encourage to change the admitting diagnosis for hemorrhagic shock to something that is actually correct like anemia renal failure etc. 01/26/17 AK stump is dry and clean no drainage anymore Dressing intact Need to change dressing daily 01/27/17 Patient with above-knee amputation impaired healing dehisced lateral portion of the stump Some drainage from it but I don't see if being purulent rather this is fibrin and liquefied adipose tissue Wet-to-dry dressing and the next few days I'll take patient to the operating room and placed the wound VAC 01/29/17 Right AKA stump lateral aspect debrided and washed out Good inflammatory granulation tissue forming despite patient's impaired healing potential Wound VAC applied Patient can transfer to [facility] any time and wound VAC has to be changed every Friday and for about 2-3 weeks total After that I'll probably take patient to the OR for secondary closure or if the wound is small allow it to heal completely without any further need for surgery 02/04/17 Wound VAC being continued Incision is now clean and dry and medial portion and lateral portion wound VAC is showing nice granulation tissue We'll keep wound VAC for another 10 days or so and I will close the wound by secondary intention probably week after next Objective: Vital Signs Date Time Temp Pulse Resp B/P Pulse Ox O2 Delivery O2 Flow Rate FiO2 02/04/17 12:02 98.5 72 16 112/56 96 02/04/17 08:20 63 02/04/17 08:20 Room Air 02/04/17 08:03 98.1 69 16 116/56 97 02/04/17 04:53 98.0 74 16 141/73 99 02/04/17 00:00 Room Air 02/03/17 23:55 98.0 70 16 105/55 97 02/03/17 20:38 98.1 68 16 132/68 97 02/03/17 20:00 63 02/03/17 20:00 Room Air Result Diagram: 02/01/17 0458 02/03/17 0620 Chantale Wakefield MD Feb 04, 2017 17:40
[2017-02-04] MEDS: MONTELUKAST SODIUM 10 MG TAB PO SCH (19:51)
[2017-02-04] MEDS: ATORVASTATIN 40 MG TAB PO SCH (19:52)
[2017-02-05] VITALS (9 sets, daily range): BP systolic 97–153; BP diastolic 53–69; PULSE 59–68; RESP 16–20; TEMP 97.3–98.3; O2SAT 96–100
[2017-02-05] MEDS: GABAPENTIN 400 MG CAP PO SCH ×4 (00:09→17:46)
[2017-02-05] MEDS: oxyCODONE/ACETAMINOPHEN 10 MG/325 MG TAB PO SCH ×4 (01:43→20:40)
[2017-02-05] MEDS: HYDROmorphone HCL 2 MG TAB PO PRN ×4 (04:46→22:25)
[2017-02-05] MEDS: DULoxetine HCl DR 60 MG CAP PO SCH ×2 (08:48→20:39)
[2017-02-05] MEDS: VANCOMYCIN 1,000 MG/NS 250 ML IV SCH ×2 (08:48)
[2017-02-05] MEDS: PANTOPRAZOLE SOD 40 MG DELAYED RELEASE TAB PO SCH (08:48)
[2017-02-05] MEDS: AMIODARONE 200 MG TAB PO SCH (08:48)
[2017-02-05] MEDS: metFORMIN HCL 500 MG TAB PO SCH (08:48)
[2017-02-05] MEDS: CARVEDILOL 6.25 MG TAB PO SCH ×2 (08:48→20:39)
[2017-02-05] MEDS: ASPIRIN 81 MG CHEW TAB PO SCH (08:48)
[2017-02-05] MEDS: CHOLECALCIFEROL (VIT D3) 5000 UNIT CAP PO SCH (08:48)
[2017-02-05] MEDS: HEPARIN SODIUM - SQ 10,000 UNITS/ML VIAL SQ SCH ×2 (08:57→20:39)
--- NOTE | 2017-02-05 11:09 | PD.CAR.PN ---
CVT Progress Note Subjective/Hospital Course: Patient known to me from previous admissions Patient returns to Hospital pale, weak with hemoglobin of 5.8 g/dL Patient left the hospital with hemoglobin of 7 g/dL last week so I didn't take much to drop it 1 or 2 g. Patient is clearly very ill lady with decreased and suppress bone marrow production, on multiple medications and now received 1 L of saline which further diluted her. Patient is NOT bleeding from any source at this time, including her thigh. Stump is clean and dry and high is completely normal in size. This patient does NOT have hemorrhagic shock and no clinical parameters as to the same This patient is severely anemic with decreased oxygen carrying capacity and requires blood transfusion I have discussed this with Dr. Nava in the emergency room. 01/21/17 As stated yesterday patient does not have any bleeding into her thigh and amputation site is clean and dry Abdomen is soft with active bowel sounds Patient's anemia is likely attributable to decreased production in face of multiple medical problems including renal insufficiency Patient does not have hemorrhagic shock and this diagnosis should be changed in the system because this does not correlate with clinical findings Hemoglobin today is 12 g/dL and patient feels better Nothing to add to care this time 01/22/17 Stump clean and dry Hemoglobin stable Nothing to add to care at this time Would encourage to change the admitting diagnosis for hemorrhagic shock to something that is actually correct like anemia renal failure etc. 01/26/17 AK stump is dry and clean no drainage anymore Dressing intact Need to change dressing daily 01/27/17 Patient with above-knee amputation impaired healing dehisced lateral portion of the stump Some drainage from it but I don't see if being purulent rather this is fibrin and liquefied adipose tissue Wet-to-dry dressing and the next few days I'll take patient to the operating room and placed the wound VAC 01/29/17 Right AKA stump lateral aspect debrided and washed out Good inflammatory granulation tissue forming despite patient's impaired healing potential Wound VAC applied Patient can transfer to [facility] any time and wound VAC has to be changed every Friday and for about 2-3 weeks total After that I'll probably take patient to the OR for secondary closure or if the wound is small allow it to heal completely without any further need for surgery 02/04/17 Wound VAC being continued Incision is now clean and dry and medial portion and lateral portion wound VAC is showing nice granulation tissue We'll keep wound VAC for another 10 days or so and I will close the wound by secondary intention probably week after next 02/05/17 Patient can be discharged with wound VAC and I will have her come back in about 10 days for washout and secondary closure of the AKA stump Doing well at this time Objective: Vital Signs Date Time Temp Pulse Resp B/P Pulse Ox O2 Delivery O2 Flow Rate FiO2 02/05/17 08:10 Room Air 02/05/17 08:10 59 02/05/17 08:00 97.7 60 18 145/62 97 02/05/17 04:50 Room Air 02/05/17 04:50 98.2 63 18 97/69 97 02/05/17 00:15 97.3 65 19 105/60 97 02/05/17 00:15 Room Air 02/04/17 20:08 68 02/04/17 20:00 98.1 67 21 141/60 99 02/04/17 20:00 Room Air 02/04/17 16:02 98.0 68 16 114/54 97 02/04/17 12:02 98.5 72 16 112/56 96 Labs: Laboratory Tests Test 02/05/17 05:20 Creatinine 0.70 MG/DL (0.50-1.00) Estimat Glomerular Filtration 85 ML/MIN (>89) Rate Result Diagram: 02/01/17 0458 02/05/17 0520 Chantale Wakefield MD Feb 05, 2017 11:09
--- NOTE | 2017-02-05 12:14 | HHI.PR ---
Subjective Remarks Follow-up infected AKA stump. Patient seen and examined today, vascular access at bedside placing peripheral IV. Denies any new acute events overnight. Tolerating PO intake. Denies any recent fever, chills, cough, shortness of breath, abdominal pain, n/v, diarrhea, or dysuria. Objective Vitals Vital Signs Date Time Temp Pulse Resp B/P Pulse Ox O2 Delivery O2 Flow Rate FiO2 02/05/17 08:10 Room Air 02/05/17 08:10 59 02/05/17 08:00 97.7 60 18 145/62 97 02/05/17 04:50 Room Air 02/05/17 04:50 98.2 63 18 97/69 97 02/05/17 00:15 97.3 65 19 105/60 97 02/05/17 00:15 Room Air 02/04/17 20:08 68 02/04/17 20:00 98.1 67 21 141/60 99 02/04/17 20:00 Room Air 02/04/17 16:02 98.0 68 16 114/54 97 I/O 02/04/17 02/04/17 02/04/17 02/05/17 02/05/17 02/05/17 07:00 15:00 23:00 07:00 15:00 23:00 Intake Total 480 ml 420 ml 570 ml Output Total 750 ml 820 ml 751 ml 700 ml Balance -270 ml -400 ml -181 ml -700 ml Intake Oral 480 ml 420 ml 570 ml Output Urine Total 750 ml 700 ml 750 ml 700 ml Stool Total 120 ml 1 ml # Bowel Movements 1 Result Diagram: 02/01/17 0458 02/05/17 0520 Imaging Last Impressions Head CT 01/20/17 0000 Signed Impressions: Service Date/Time: Friday, January 20, 2017 18:51 - CONCLUSION: No acute intracranial abnormality is identified. Femi Barron MD Chest X-Ray 01/20/17 0000 Signed Impressions: Service Date/Time: Friday, January 20, 2017 16:17 - CONCLUSION: Persistent diffuse increased interstitial markings likely representing some edema. These findings appear less prominent than they did on the prior exam. Femi Camejo MD Objective Remarks GENERAL: Well-nourished, well-developed patient, sitting in bed in no apparent distress. SKIN: No rashes, warm and dry. Right AK stump wound VAC in place, suction continued, serosanguineous fluid noted. HEAD: Atraumatic. Normocephalic. EYES: Pupils equal round and reactive. Extraocular motions intact. No scleral icterus. ENT: Nose without bleeding, or drainage, Airway patent. NECK: Trachea midline. Supple CARDIOVASCULAR: Regular rate and rhythm. No murmur appreciated. RESPIRATORY: Fair air entry bilaterally. No wheezes, rales, or rhonchi. GASTROINTESTINAL: Abdomen soft, non-tender, nondistended. Positive bowel sounds x 4 q. MUSCULOSKELETAL: Right AKA NEUROLOGICAL: Awake and alert. Moves all extremity. Normal speech. no focal neurological deficit Procedures EGD Surgical debridement of her right stump. A/P Problem List: (1) Anemia due to acute blood loss ICD Code: D62 Status: Acute (2) Diabetes mellitus ICD Code: E11.9 Status: Chronic Assessment and Plan 61 yo female with history of DM, Coronary Artery Disease, Breast Cancer, Morbid obesity, and systemic lupus. She initially underwent right above the knee amputation on January 13, 2017. Status post Right AKA - Wound vac continued. Wound care nurse following, appreciate input. Vascular surgery following patient, recommended wound vac for an additional 10 days from 02/04/17. - Continue physical therapy to work on transfers. Patient displaying high motivation to work with PT. - Continue pain management. Continue Neurontin. Continue Percocet 10/325 mg PO q6hrs scheduled. Continue Morphine IV and Dilaudid IV PRN per pain scale. - Wound cultures growing MRSA on 01/29/17. - ID following, appreciate input. Recommendations for IV Vancomycin until 07/20. Follow Vanco trough and peaks. Severe anemia secondary to acute blood loss, improved. - Status post 4 units PRBC. - Status post EGD. Biopsy for H. pylori negative. Follow up pathology with chronic gastritis. - No signs or symptoms of bleeding. Monitor. - H/H stable. Systolic congestive heart failure, chronic Chronic dilated cardiomyopathy - ECHO from 11/2016 reviewed showing reduced EF of 25-30%. Mild LVH. Reduced systolic function. - Continue Coreg. - Monitor I/O and daily weight. Peripheral vascular disease, chronic: Stable. Continue aspirin. Type 2 diabetes mellitus, chronic: Continue metformin 500 mg daily. GI prophylaxis: Protonix DVT prophylaxis: SCDs. Heparin 5,000 units sq q12hr. Discharge Planning Discharge to SNF placement pending. Not safe for home discharge at this time, PT still recommending rehab placement. Last CM note: 02/05/17 Zahra from [facility] was still agreeable to review pt's information for [facility]. Mari Pugh Feb 05, 2017 12:14
[2017-02-05] MEDS ORDERED: SODIUM CHLOR 0.9% 1000 ML INJ 1,000 ML IV SCH (12:15)
[2017-02-05] MEDS: ATORVASTATIN 40 MG TAB PO SCH (20:39)
[2017-02-05] MEDS: MONTELUKAST SODIUM 10 MG TAB PO SCH (20:40)
[2017-02-06] MEDS: VANCOMYCIN 1,000 MG/NS 250 ML IV SCH ×4 (02:00→20:23)
[2017-02-06] MEDS: oxyCODONE/ACETAMINOPHEN 10 MG/325 MG TAB PO SCH ×4 (02:00→20:23)
[2017-02-06] MEDS: HYDROmorphone HCL 2 MG TAB PO PRN ×4 (04:30→23:18)
[2017-02-06 05:20] VITALS: BP 113/53; PULSE 61; RESP 16; TEMP 97.9; O2SAT 96
[2017-02-06] MEDS: GABAPENTIN 400 MG CAP PO SCH ×4 (06:12→17:32)
[2017-02-06 08:00] VITALS: BP 127/58; PULSE 60; PULSE 64; RESP 20; TEMP 97.9; O2SAT 97
[2017-02-06] MEDS: ASPIRIN 81 MG CHEW TAB PO SCH (08:23)
[2017-02-06] MEDS: CHOLECALCIFEROL (VIT D3) 5000 UNIT CAP PO SCH (08:23)
[2017-02-06] MEDS: metFORMIN HCL 500 MG TAB PO SCH (08:23)
[2017-02-06] MEDS: DULoxetine HCl DR 60 MG CAP PO SCH ×2 (08:24→20:23)
[2017-02-06] MEDS: PANTOPRAZOLE SOD 40 MG DELAYED RELEASE TAB PO SCH (08:24)
[2017-02-06] MEDS: CARVEDILOL 6.25 MG TAB PO SCH ×2 (08:24→20:22)
[2017-02-06] MEDS: AMIODARONE 200 MG TAB PO SCH (08:25)
[2017-02-06] MEDS: HEPARIN SODIUM - SQ 10,000 UNITS/ML VIAL SQ SCH ×2 (08:26→20:23)
--- NOTE | 2017-02-06 11:04 | HHI.PR ---
Subjective Remarks This is a pleasant 61 y/o Female she came in the past to this facility with infected Below Knee wound from prior amputation and she was treated with [id number] amputation after antibiotic treatment for resistant bacteria including MRSA and very resistant Pseudomonas. She was discharge from the hospital on January 18/2017, She was admitted the hospital with cardiac complaints and she was found to be very weak and was bradycardic and was given atropine and she was also noted to be hypotensive with a blood pressure of 60/ 30. She was given fluid boluses and her blood pressure improved. She had a white count of 12,000 on admission. She was admitted with severe anemia with a hemoglobin of 5.8. In the interim, she was evaluated by general surgery for the wound of the right lower extremity. status post I and D and Vacuum placed on the Right stump, initially on Vancomycin and Zosyn until 01/20/2017 now on Vancomycin has to continue until 02/12/17 as per ID specialist, as per General Surgery recommended to continue with Vacuum in place and continue wound care she will need to come back in 10 days for Washout and secondary closure, discussed with patient, her Nurse Miss Amina Blanchard she will need to go to Rehab as per Physical Therapy, she refuse to go to SNF due to the copayment she will need to do, is asking to be transferred to [facility], but this facility is not taking [facility] care patients, will go to Rehab and continue antibiotics for the next six days and will come back in 10 days. no nausea, vomit or diarrhea. Objective Vital Signs Date Time Temp Pulse Resp B/P Pulse Ox O2 Delivery O2 Flow Rate FiO2 02/06/17 08:00 97.9 60 20 127/58 97 02/06/17 05:20 97.9 61 16 113/53 96 02/06/17 05:20 Room Air 02/05/17 23:10 98.1 63 16 121/57 98 02/05/17 23:10 Room Air 02/05/17 20:00 68 02/05/17 19:55 Room Air 02/05/17 19:55 98.3 66 16 153/65 100 02/05/17 16:00 97.8 60 18 113/56 96 02/05/17 12:00 98.3 66 20 107/53 100 I/O 7/12/1802/05/17 02/05/17 02/06/17 02/06/17 02/06/17 07:00 15:00 23:00 07:00 15:00 23:00 Intake Total 1200 ml 724 ml 1131 ml Output Total 700 ml 1000 ml 800 ml 950 ml 300 ml Balance -700 ml 200 ml -76 ml 181 ml -300 ml Intake Oral 1200 ml 480 ml 720 ml IV Total 244 ml 411 ml Output Urine Total 700 ml 1000 ml 800 ml 950 ml 300 ml # Bowel Movements 0 0 1 Result Diagram: 02/05/17 0520 Imaging Last Impressions Head CT 01/20/17 0000 Signed Impressions: Service Date/Time: Friday, January 20, 2017 18:51 - CONCLUSION: No acute intracranial abnormality is identified. Femi Barron MD Chest X-Ray 01/20/17 0000 Signed Impressions: Service Date/Time: Friday, January 20, 2017 16:17 - CONCLUSION: Persistent diffuse increased interstitial markings likely representing some edema. These findings appear less prominent than they did on the prior exam. Femi Camejo MD Procedures EGD Surgical debridement of her right stump. Other Results Laboratory Tests Test 02/03/17 02/05/17 20:35 05:20 Vancomycin Level Trough 15.1 MCG/ML Creatinine 0.70 MG/DL Estimat Glomerular Filtration 85 ML/MIN Rate Objective Remarks GENERAL: Well-nourished, well-developed patient, sitting in bed in no apparent distress. SKIN: No rashes, warm and dry. Right AK stump wound VAC in place, suction continued, serosanguineous fluid noted. HEAD: Atraumatic. Normocephalic. EYES: Pupils equal round and reactive. Extraocular motions intact. No scleral icterus. ENT: Nose without bleeding, or drainage, Airway patent. NECK: Trachea midline. Supple CARDIOVASCULAR: Regular rate and rhythm. No murmur appreciated. RESPIRATORY: Fair air entry bilaterally. No wheezes, rales, or rhonchi. GASTROINTESTINAL: Abdomen soft, non-tender, nondistended. Positive bowel sounds x 4 q. MUSCULOSKELETAL: Right AKA vacuum in place. NEUROLOGICAL: Awake and alert. Moves all extremity. Normal speech. no focal neurological deficit Medications and IVs Current Medications Medications (Trade) Dose Ordered Sig/Seng Route Start Time Stop Time Status Last Admin (Milk Of Magnesia Liq) 30 ml Q12H PRN PO 01/20/17 16:45 01/23/17 18:20 (Senokot) 17.2 mg Q12H PRN PO 01/20/17 16:45 (Dulcolax Supp) 10 mg DAILY PRN RECTAL 01/20/17 16:45 (Lactulose Liq) 30 ml DAILY PRN PO 01/20/17 16:45 (Msir) 15 mg Q4H PRN PO 01/21/17 03:30 02/02/17 17:54 (Tylenol) 650 mg Q4H PRN PO 01/21/17 03:30 (Protonix) 40 mg DAILY PO 01/22/17 09:00 02/06/17 08:24 (Cordarone) 200 mg DAILY PO 01/23/17 09:00 02/06/17 08:25 (Aspirin Chew) 81 mg DAILY PO 01/23/17 09:00 02/06/17 08:23 (Lipitor) 40 mg HS PO 01/22/17 21:00 02/05/17 20:39 (Coreg) 6.25 mg Q12HR PO 01/22/17 21:00 02/05/17 20:39 (Cymbalta Dr) 60 mg BID PO 01/22/17 21:00 02/06/17 08:24 (Singulair) 10 mg HS PO 01/22/17 21:00 02/05/17 20:40 (Vitamin D3) 5,000 units DAILY PO 01/23/17 09:00 02/06/17 08:23 Gabapentin 400 mg 400 mg Q6HR PO 01/24/17 18:00 02/06/17 06:12 (Vancomycin Consult Pharmacy) 0 ml @ 0 mls/hr UNSCH OTHER 01/27/17 14:45 (Heparin Inj) 5,000 units Q12HR SQ 01/28/17 21:00 02/06/17 08:26 (Dilaudid) 1 mg Q4H PRN PO 01/28/17 12:30 02/06/17 10:16 Metformin HCl 500 mg 500 mg DAILY PO 01/31/17 09:00 02/06/17 08:23 (Vancomycin Inj/ NS 250 ml Inj) 250 ml @ 250 mls/hr Q18H IV 02/01/17 14:00 02/06/17 02:00 (Percocet 10-325 Mg) 1 tab Q6H PO 02/02/17 14:00 02/06/17 08:24 Hydromorphone HCl 0.2 mg 0.2 mg MoTh IV PUSH 02/03/17 13:00 02/03/17 11:30 (NS 1000 ml Inj) 1,000 ml @ 0 mls/hr Q0M IV 02/05/17 12:15 A/P Assessment and Plan 61 yo female with history of DM, Coronary Artery Disease, Breast Cancer, Morbid obesity, and systemic lupus. She initially underwent right above the knee amputation on January 13, 2017. Status post Right AKA - Wound vac continued. Wound care nurse following, appreciate input. Vascular surgery following patient, recommended wound vac for an additional 10 days from 02/04/17. - Continue physical therapy to work on transfers. Patient displaying high motivation to work with PT. - Continue pain management. Continue Neurontin. Continue Percocet 10/325 mg PO q6hrs scheduled. Continue Morphine IV and Dilaudid IV PRN per pain scale. - Wound cultures growing MRSA on 01/29/17. - ID following, appreciate input. Recommendations for IV Vancomycin until 07/20. Follow Vanco trough and peaks. Severe anemia secondary to acute blood loss, improved. - Status post 4 units PRBC. - Status post EGD. Biopsy for H. pylori negative. Follow up pathology with chronic gastritis. - No signs or symptoms of bleeding. Monitor. - H/H stable. Systolic congestive heart failure, chronic Chronic dilated cardiomyopathy - ECHO from 11/2016 reviewed showing reduced EF of 25-30%. Mild LVH. Reduced systolic function. - Continue Coreg. - Monitor I/O and daily weight. Peripheral vascular disease, chronic: Stable. Continue aspirin. Type 2 diabetes mellitus, chronic: Continue metformin 500 mg daily. GI prophylaxis: Protonix DVT prophylaxis: SCDs. Heparin 5,000 units sq q12hr. Discharge Planning Discharge to SNF and continue Vancomycin for six more days may need PICC line to go to Rehab. Kade Hyatt MD Feb 06, 2017 11:04
[2017-02-06 12:00] VITALS: BP 138/65; PULSE 64; RESP 20; TEMP 98.7; O2SAT 96
--- NOTE | 2017-02-06 14:02 | HHI.FF ---
Infusion Therapy Location of Infusion Therapy: Home [facility] IV Infusion Order Patient Information Patient Weight 54.6 kg Diagnosis: (1) Methicillin resistant Staphylococcus aureus infection (2) Amputation stump infection Coded Allergies: Bactrim (Verified Allergy, Severe, Shortness of Breath, 01/20/17) Iodine (Verified Allergy, Severe, THROAT SWELLS, 01/20/17) pt states does not have a allergy to Iodine 01/11/16 JF Penicillin (Verified Allergy, Severe, STOPPED BREATHING, 01/20/17) Shellfish (Verified Allergy, Severe, THROAT SWELLS, 01/20/17) *MDRO Multi-Drug Resistant Organism (Verified Adverse Reaction, Unknown, Brar resistant Pseudomonas, VRE, MRSA, 02/03/17) MRSA Knee Wound 01/2017 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, wound - 01/04/17 MRSA (urine)-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 on 12/21/16 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 Administer Medication Vancomycin 1250mg IV Q 24 hours Stop Treatment: Feb 12, 2017 Additional Information Venous access: PICC Line Additional Instructions [x] Peripheral flush and dressing changes per protocol [x] Implanted port 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 [] May leave port accessed during therapy. [] May leave peripheral site accessed for duration of therapy. [x] If patient has SOB or respiratory distress, check oxygen saturation. If less than 90% or clinical signs of respiratory distress, administer oxygen at 2 L/min. via nasal cannula and notify physician. [x] Anaphylaxis/Reaction orders: * Stop infusion. * Keep IV line open with saline flush. * Notify physician. * Monitor vital signs every 15 minutes until symptoms resolve. * Check Oxygen saturation; Oxygen at 2 L/min. via nasal cannula if less than 90% or clinical signs of respiratory distress. * Administer diphenhydramine (Benadryl) 25 mg IV STAT, (unless patient has received as pre-med). May repeat once, if necessary. * Solu-Cortef 250 mg IVP over 30-60 seconds, use 100 mg vials for each dissolution. * Epinephrine (1mg/1 ml) 0.3 mg subcutaneously or IVP now with any signs of respiratory distress. * Check with physician for new additional pre-med orders if patient is re- challenged or re-treated. [x] May remove PICC line when treatment complete, after confirming with Physician. [x] If the patient is admitted to the hospital, the ED, or transferred via [facility] , complete transfer form including medication reconciliation order sheet. Laboratory Tests Weekly Labs: BMP, Vancomycin Trough Ike Briceno MD Feb 06, 2017 14:02
--- NOTE | 2017-02-06 14:40 | HHI.IDPN ---
Note Infectious Disease Note Called to arrange IV antibiotic for D/C. Previously signed off case. Patient feels pain in r. stump wound. Afebrile. No other complaints. Post debridement and wound vac 01/28. Wound culture has MRSA. PAST MEDICAL HISTORY 1. Diabetes mellitus 2. Chronic renal disease 3. Gastroesophageal reflux disease 4. CHF 5. Osteoporosis 6. Lupus 7. Myeloproliferative disorder 8. History of colostomy and fistula 9. History of cardiac stent x2 10. History of coronary bypass graft surgery 11. Hysterectomy 12. Tonsillectomy 13. Cholecystectomy ALLERGIES PENICILLIN, BACTRIM, SHELLFISH, AND IODINE. ANTIBIOTIC: 1. Vancomycin OBJECTIVE: Vital Signs Date Time Temp Pulse Resp B/P Pulse Ox O2 Delivery O2 Flow Rate FiO2 02/06/17 12:00 98.7 64 20 138/65 96 02/06/17 08:20 97 Room Air 02/06/17 08:00 97.9 60 20 127/58 97 02/06/17 08:00 64 02/06/17 05:20 97.9 61 16 113/53 96 02/06/17 05:20 Room Air 02/05/17 23:10 98.1 63 16 121/57 98 02/05/17 23:10 Room Air 02/05/17 20:00 68 02/05/17 19:55 Room Air 02/05/17 19:55 98.3 66 16 153/65 100 02/05/17 16:00 97.8 60 18 113/56 96 02/05/17 02/05/17 02/06/17 14:59 22:59 06:59 Intake Total 1200 ml 724 ml 1131 ml Output Total 1000 ml 800 ml 950 ml Balance 200 ml -76 ml 181 ml Intake Oral 1200 ml 480 ml 720 ml IV Total 244 ml 411 ml Output Urine Total 1000 ml 800 ml 950 ml # Bowel Movements 0 0 1 Laboratory Tests Test 02/05/17 05:20 Creatinine 0.70 MG/DL Estimat Glomerular Filtration 85 ML/MIN Rate PHYSICAL EXAMINATION GENERAL: No acute distress. Awake, alert and oriented. HEENT: No icterus. No conjunctival erythema. Oropharynx, moist mucosa without lesions. NECK: Supple. No adenopathy or swelling. LUNGS: Clear to auscultation. HEART: Regular S1-S2 without murmurs, rubs or gallops. EXTREMITIES: The right leg stump has wound vac. Scant serous drainage. mild erythema around the vac sponge. NEUROLOGIC: Patient is alert and oriented. No gross focal findings. SKIN: No diffuse rash. PSYCH: Calm and cooperative. IMPRESSION Status post right stump AKA of the lower extremity and now with dehisced wound and bloody drainage initially. Wound infection due to MRSA at dehisced wound. Wound appears stable. RECOMMENDATIONS Continue Vancomycin until February 12. I have written orders for the IV Vancomycin along with labs BMP and Vanco level to be followed on discharge. Case management notified of the orders. Ike Briceno MD Feb 06, 2017 14:40
[2017-02-06 16:00] VITALS: BP 147/67; PULSE 64; RESP 20; TEMP 97.9; O2SAT 100
--- NOTE | 2017-02-06 17:54 | RADRPT ---
EXAM DATE/TIME: 02/06/2017 17:41 CORRECTION Corrected on: February 06, 2017; typographical area in the findings section was corrected. [facility] COMPARISON: CHEST SINGLE AP, January 20, 2017, 16:17. INDICATIONS : PICC line placement. MEDICAL HISTORY : asthma. SURGICAL HISTORY : CABG. ENCOUNTER: Initial ACUITY: 1 day PAIN SCORE: 0/10 LOCATION: Bilateral chest FINDINGS: Right-sided PICC line tip just beyond the cavoatrial junction. Median sternotomy wires are in place. Minimal left lower lobe patchy air space disease. Cardiomediastinal contours are stable. Remainder of the exam is unchanged. CONCLUSION: 1. Right PICC line tip in good position. 2. Minimal left lower lobe patchy airspace disease, likely atelectasis/scarring. Dong Marks MD on February 06, 2017 at 17:51 Board Certified Radiologist. This report was verified electronically. Antwan Mary MD on February 06, 2017 at 19:36 Board Certified Radiologist. This report was verified electronically.
[2017-02-06] MEDS ORDERED: SODIUM CHLORIDE 0.9% FLUSH 10 ML FLUSH IV FLUSH PRN (18:00)
[2017-02-06 20:03] VITALS: BP 152/70; PULSE 68; RESP 16; TEMP 98.5; O2SAT 98
[2017-02-06] MEDS: MONTELUKAST SODIUM 10 MG TAB PO SCH (20:23)
[2017-02-06] MEDS: ATORVASTATIN 40 MG TAB PO SCH (21:00)
[2017-02-06] MEDS: HYDROmorphone HCL PF 1 MG/ML VIAL IV PUSH PRN (22:14)
[2017-02-07] VITALS (8 sets, daily range): BP systolic 104–130; BP diastolic 56–79; PULSE 65–69; RESP 16–20; TEMP 97.2–98.8; O2SAT 95–100
[2017-02-07] MEDS: oxyCODONE/ACETAMINOPHEN 10 MG/325 MG TAB PO SCH ×4 (02:00→19:54)
[2017-02-07] MEDS: HYDROmorphone HCL 2 MG TAB PO PRN ×4 (04:13→21:22)
[2017-02-07] MEDS: GABAPENTIN 400 MG CAP PO SCH ×5 (05:43→23:15)
[2017-02-07] MEDS: metFORMIN HCL 500 MG TAB PO SCH (08:31)
[2017-02-07] MEDS: AMIODARONE 200 MG TAB PO SCH (08:31)
[2017-02-07] MEDS: ASPIRIN 81 MG CHEW TAB PO SCH (08:31)
[2017-02-07] MEDS: PANTOPRAZOLE SOD 40 MG DELAYED RELEASE TAB PO SCH (08:31)
[2017-02-07] MEDS: CARVEDILOL 6.25 MG TAB PO SCH ×2 (08:31→19:55)
[2017-02-07] MEDS: SODIUM CHLORIDE 0.9% FLUSH 10 ML FLUSH IV FLUSH SCH (08:31)
[2017-02-07] MEDS: CHOLECALCIFEROL (VIT D3) 5000 UNIT CAP PO SCH (08:31)
[2017-02-07] MEDS: DULoxetine HCl DR 60 MG CAP PO SCH ×2 (08:31→19:53)
[2017-02-07] MEDS: HEPARIN SODIUM - SQ 10,000 UNITS/ML VIAL SQ SCH ×2 (08:32→19:53)
--- NOTE | 2017-02-07 10:58 | HHI.PR ---
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 She was discharge from the hospital on January 18/2017, She was admitted the hospital with cardiac complaints and she was found to be very weak and was bradycardic and was given atropine and she was also noted to be hypotensive with a blood pressure of 60/ 30. She was given fluid boluses and her blood pressure improved. She had a white count of 12,000 on admission. She was admitted with severe anemia with a hemoglobin of 5.8. In the interim, she was evaluated by general surgery for the wound of the right lower extremity. status post I and D and Vacuum placed on the Right stump, initially on Vancomycin and Zosyn until 01/20/2017 now on Vancomycin has to continue until 02/12/17 as per ID specialist, as per General Surgery recommended to continue with Vacuum in place and continue wound care she will need to come back in 10 days for Washout and secondary closure, discussed with patient, her Nurse Aminaotto Blanchard she will need to go to Rehab as per Physical Therapy, she refuse to go to SNF due to the copayment she will need to do, is asking to be transferred to [facility], but this facility is not taking correction care patients, will go to Rehab and continue antibiotics for the next six days and will come back in 10 days. no nausea, vomit or diarrhea. 02/07: Seen in her bedroom, discussed with patient and her , she will need to go to Rehab as per Physical therapy specialist present at this time, also discussed with Patient Service Representative she won't have possibility to go to Rehab at this time due to Insurance issues, I will place order for discharge to SNF and Patient Service Representative will handle the situation, No nausea, vomit or diarrhea. Objective Vital Signs Date Time Temp Pulse Resp B/P Pulse Ox O2 Delivery O2 Flow Rate FiO2 02/07/17 09:47 Room Air 21 02/07/17 08:00 98.0 65 18 117/56 95 02/07/17 04:00 97.2 65 18 120/56 100 02/07/17 00:18 18 02/07/17 00:00 98.5 66 18 114/56 97 02/06/17 22:44 18 02/06/17 21:23 18 02/06/17 20:03 98.5 68 16 152/70 98 02/06/17 16:00 97.9 64 20 147/67 100 02/06/17 12:00 98.7 64 20 138/65 96 I/O 02/06/17 02/06/17 02/06/17 02/07/17 02/07/17 02/07/17 07:00 15:00 23:00 07:00 15:00 23:00 Intake Total 1131 ml 280 ml 480 ml Output Total 950 ml 300 ml 1650 ml 800 ml Balance 181 ml -300 ml -1370 ml -320 ml Intake Oral 720 ml 280 ml 480 ml IV Total 411 ml Output Urine Total 950 ml 300 ml 1450 ml 800 ml Stool Total 200 ml # Bowel Movements 1 0 Result Diagram: 02/07/17 0620 Imaging Last Impressions Chest X-Ray 02/06/17 0000 Signed Impressions: Service Date/Time: February 17:41 - CONCLUSION: 1. Right PICC line tip in good position. 2. Minimal left lower lobe patchy airspace disease, likely atelectasis/scarring. Dong Marks MD Head CT 01/20/17 0000 Signed Impressions: Service Date/Time: Friday, January 20, 2017 18:51 - CONCLUSION: No acute intracranial abnormality is identified. Femi Barron MD Procedures EGD Surgical debridement of her right stump. Other Results Laboratory Tests Test 02/03/17 02/07/17 20:35 06:20 Vancomycin Level Trough 15.1 MCG/ML Creatinine 0.72 MG/DL Estimat Glomerular Filtration 83 ML/MIN Rate Objective Remarks GENERAL: Well-developed patient, sitting in bed in no apparent distress. SKIN: No rashes, warm and dry. Right AK stump wound VAC in place, suction continued, serosanguineous fluid noted. HEAD: Atraumatic. Normocephalic. EYES: Pupils equal round and reactive. Extraocular motions intact. No scleral icterus. ENT: Nose without bleeding, or drainage, Airway patent. NECK: Trachea midline. Supple CARDIOVASCULAR: Regular rate and rhythm. No murmur appreciated. RESPIRATORY: Fair air entry bilaterally. No wheezes, rales, or rhonchi. GASTROINTESTINAL: Abdomen soft, non-tender, nondistended. Positive bowel sounds x 4 q. MUSCULOSKELETAL: Right AKA vacuum in place. NEUROLOGICAL: Awake and alert. Moves all extremity. Normal speech. no focal neurological deficit Medications and IVs Current Medications Medications (Trade) Dose Ordered Sig/Seng Route Start Time Stop Time Status Last Admin (Milk Of Magnesia Liq) 30 ml Q12H PRN PO 01/20/17 16:45 01/23/17 18:20 (Senokot) 17.2 mg Q12H PRN PO 01/20/17 16:45 (Dulcolax Supp) 10 mg DAILY PRN RECTAL 01/20/17 16:45 (Lactulose Liq) 30 ml DAILY PRN PO 01/20/17 16:45 (Tylenol) 650 mg Q4H PRN PO 01/21/17 03:30 (Protonix) 40 mg DAILY PO 01/22/17 09:00 02/07/17 08:31 (Cordarone) 200 mg DAILY PO 01/23/17 09:00 02/07/17 08:31 (Aspirin Chew) 81 mg DAILY PO 01/23/17 09:00 02/07/17 08:31 (Lipitor) 40 mg HS PO 01/22/17 21:00 02/06/17 21:00 (Coreg) 6.25 mg Q12HR PO 01/22/17 21:00 02/07/17 08:31 (Cymbalta Dr) 60 mg BID PO 01/22/17 21:00 02/07/17 08:31 (Singulair) 10 mg HS PO 01/22/17 21:00 02/06/17 20:23 (Vitamin D3) 5,000 units DAILY PO 01/23/17 09:00 02/07/17 08:31 Gabapentin 400 mg 400 mg Q6HR PO 01/24/17 18:00 02/07/17 05:43 (Vancomycin Consult Pharmacy) 0 ml @ 0 mls/hr UNSCH OTHER 01/27/17 14:45 (Heparin Inj) 5,000 units Q12HR SQ 01/28/17 21:00 02/07/17 08:32 Metformin HCl 500 mg 500 mg DAILY PO 01/31/17 09:00 02/07/17 08:31 (Vancomycin Inj/ NS 250 ml Inj) 250 ml @ 250 mls/hr Q18H IV 02/01/17 14:00 02/06/17 20:23 Oxycodone/ Acetaminophen 1 tab 1 tab Q6H PO 02/02/17 14:00 02/07/17 08:31 (NS 1000 ml Inj) 1,000 ml @ 0 mls/hr Q0M IV 02/05/17 12:15 (Dilaudid) 2 mg Q4H PRN PO 02/06/17 13:00 02/07/17 10:31 (Dilaudid Pf Inj) 0.2 mg 2XWEEK PRN IV PUSH 02/06/17 13:00 02/06/17 22:14 (NS Flush) See Protocol DAILY IV FLUSH 02/07/17 09:00 02/07/17 08:31 (NS Flush) See Protocol UNSCH PRN IV FLUSH 02/06/17 18:00 (Heparin Central Flush) See Protocol DAILY IV FLUSH 02/07/17 09:00 02/07/17 08:31 (Heparin Central Flush) See Protocol UNSCH PRN IV FLUSH 02/06/17 18:00 (NS Flush) UNSCH PRN IV FLUSH 02/06/17 18:00 A/P Assessment and Plan 61 yo female with history of DM, Coronary Artery Disease, Breast Cancer, Morbid obesity, and systemic lupus. She initially underwent right above the knee amputation on January 13, 2017. Status post Right AKA - Wound vac continued. Wound care nurse following, appreciate input. Vascular surgery following patient, recommended wound vac for an additional 10 days from 02/04/17. - Continue physical therapy to work on transfers. Patient displaying high motivation to work with PT. - Continue pain management. Continue Neurontin. Continue Percocet 10/325 mg PO q6hrs scheduled. Continue Morphine IV and Dilaudid IV PRN per pain scale. - Wound cultures growing MRSA on 01/29/17. - ID following, appreciate input. Recommendations for IV Vancomycin until 07/20. Follow Vanco trough and peaks. Severe anemia secondary to acute blood loss, improved. - Status post 4 units PRBC. - Status post EGD. Biopsy for H. pylori negative. Follow up pathology with chronic gastritis. - No signs or symptoms of bleeding. Monitor. - H/H stable. Systolic congestive heart failure, chronic Chronic dilated cardiomyopathy - ECHO from 11/2016 reviewed showing reduced EF of 25-30%. Mild LVH. Reduced systolic function. - Continue Coreg. - Monitor I/O and daily weight. Peripheral vascular disease, chronic: Stable. Continue aspirin. Type 2 diabetes mellitus, chronic: Continue metformin 500 mg daily. GI prophylaxis: Protonix DVT prophylaxis: SCDs. Heparin 5,000 units sq q12hr. Discharge Planning Discharge to SNF and continue Vancomycin for six more days may need PICC line to go to Rehab. Kade Hyatt MD Feb 07, 2017 10:58
[2017-02-07] MEDS: VANCOMYCIN 1,000 MG/NS 250 ML IV SCH ×2 (13:37)
[2017-02-07] MEDS: ATORVASTATIN 40 MG TAB PO SCH (19:51)
[2017-02-07] MEDS: MONTELUKAST SODIUM 10 MG TAB PO SCH (19:53)
[2017-02-08] MEDS: HYDROmorphone HCL 2 MG TAB PO PRN ×3 (01:33→10:05)
[2017-02-08] MEDS: oxyCODONE/ACETAMINOPHEN 10 MG/325 MG TAB PO SCH ×2 (02:53→08:07)
[2017-02-08 04:32] VITALS: BP 122/58; PULSE 65; RESP 16; TEMP 97.4; O2SAT 100
[2017-02-08] MEDS: GABAPENTIN 400 MG CAP PO SCH ×2 (05:35→10:05)
[2017-02-08 08:00] VITALS: BP 116/57; PULSE 61; RESP 20; TEMP 97.8; O2SAT 98
[2017-02-08] MEDS: ASPIRIN 81 MG CHEW TAB PO SCH (08:07)
[2017-02-08] MEDS: AMIODARONE 200 MG TAB PO SCH (08:07)
[2017-02-08] MEDS: PANTOPRAZOLE SOD 40 MG DELAYED RELEASE TAB PO SCH (08:07)
[2017-02-08] MEDS: DULoxetine HCl DR 60 MG CAP PO SCH (08:07)
[2017-02-08] MEDS: CHOLECALCIFEROL (VIT D3) 5000 UNIT CAP PO SCH (08:07)
[2017-02-08] MEDS: VANCOMYCIN 1,000 MG/NS 250 ML IV SCH ×2 (08:07)
[2017-02-08] MEDS: metFORMIN HCL 500 MG TAB PO SCH (08:07)
[2017-02-08] MEDS: CARVEDILOL 6.25 MG TAB PO SCH (08:07)
[2017-02-08 08:20] VITALS: PULSE 63
[2017-02-08] MEDS: SODIUM CHLORIDE 0.9% FLUSH 10 ML FLUSH IV FLUSH SCH (08:20)
[2017-02-08] MEDS: HEPARIN SODIUM - SQ 10,000 UNITS/ML VIAL SQ SCH (08:42)
--- NOTE | 2017-02-08 11:09 | HHI.PR ---
Subjective Remarks This is a pleasant 61 y/o Female she came in the past to this facility with infected Below Knee wound from prior amputation and she was treated with [id number] amputation after antibiotic treatment for resistant bacteria including MRSA and very resistant Pseudomonas. She was discharge from the hospital on January 18/2017, She was admitted the hospital with cardiac complaints and she was found to be very weak and was bradycardic and was given atropine and she was also noted to be hypotensive with a blood pressure of 60/ 30. She was given fluid boluses and her blood pressure improved. She had a white count of 12,000 on admission. She was admitted with severe anemia with a hemoglobin of 5.8. In the interim, she was evaluated by general surgery for the wound of the right lower extremity. status post I and D and Vacuum placed on the Right stump, initially on Vancomycin and Zosyn until 01/20/2017 now on Vancomycin has to continue until 02/12/17 as per ID specialist, as per General Surgery recommended to continue with Vacuum in place and continue wound care she will need to come back in 10 days for Washout and secondary closure, discussed with patient, her Nurse Miss Amina Blanchard she will need to go to Rehab as per Physical Therapy, she refuse to go to SNF due to the copayment she will need to do, is [place] [facility] but this facility is not taking [facility] care patients, will go to Rehab and continue antibiotics for the next six days and will come back in 10 days. no nausea, vomit or diarrhea. 02/07: Seen in her bedroom, discussed with patient and her , she will need to go to Rehab as per Physical therapy specialist present at this time, also discussed with Information Security Manager she won't have possibility to go to Rehab at this time due to Insurance issues, I will place order for discharge to SNF and Information Security Manager will handle the situation, No nausea, vomit or diarrhea. 02/08: Stable in her bedroom, discussed with nurse and with patient and with manager leasing everything ready for the patient to go home, will have a follow up with PCP and with Doctor Ashu Avila and follow recommendations. Objective Vital Signs Date Time Temp Pulse Resp B/P Pulse Ox O2 Delivery O2 Flow Rate FiO2 02/08/17 08:20 63 02/08/17 08:20 Room Air 02/08/17 08:00 97.8 61 20 116/57 98 02/08/17 04:32 97.4 65 16 122/58 100 02/07/17 23:35 97.7 65 16 114/57 97 02/07/17 22:30 18 02/07/17 20:10 68 02/07/17 20:01 Room Air 21 02/07/17 19:55 98.6 69 16 104/61 97 02/07/17 16:00 98.8 68 20 130/79 98 02/07/17 12:00 98.7 65 20 123/58 97 I/O 02/07/17 02/07/17 02/07/17 02/08/17 02/08/17 02/08/17 07:00 15:00 23:00 07:00 15:00 23:00 Intake Total 480 ml 1440 ml 480 ml 720 ml Output Total 800 ml 1100 ml 450 ml 1100 ml Balance -320 ml 340 ml 30 ml -380 ml Intake Oral 480 ml 1440 ml 480 ml 720 ml Output Urine Total 800 ml 1100 ml 450 ml 1100 ml # Bowel Movements 0 1 0 1 Result Diagram: 02/07/17 0620 Imaging Last Impressions Chest X-Ray 02/06/17 0000 Signed Impressions: Service Date/Time: February 17:41 - CONCLUSION: 1. Right PICC line tip in good position. 2. Minimal left lower lobe patchy airspace disease, likely atelectasis/scarring. Dong Makrs MD Head CT 01/20/17 0000 Signed Impressions: Service Date/Time: Friday, January 20, 2017 18:51 - CONCLUSION: No acute intracranial abnormality is identified. Femi Barron MD Procedures EGD Surgical debridement of her right stump. Other Results Laboratory Tests Test 02/07/17 06:20 Creatinine 0.72 MG/DL Estimat Glomerular Filtration 83 ML/MIN Rate Objective Remarks GENERAL: Well-developed patient, sitting in bed in no apparent distress. SKIN: No rashes, warm and dry. Right AK stump wound VAC in place, suction continued, serosanguineous fluid noted. HEAD: Atraumatic. Normocephalic. EYES: Pupils equal round and reactive. Extraocular motions intact. No scleral icterus. ENT: Nose without bleeding, or drainage, Airway patent. NECK: Trachea midline. Supple CARDIOVASCULAR: Regular rate and rhythm. No murmur appreciated. RESPIRATORY: Fair air entry bilaterally. No wheezes, rales, or rhonchi. GASTROINTESTINAL: Abdomen soft, non-tender, nondistended. Positive bowel sounds x 4 q. MUSCULOSKELETAL: Right AKA vacuum in place. NEUROLOGICAL: Awake and alert. Moves all extremity. Normal speech. no focal neurological deficit Medications and IVs Current Medications Medications (Trade) Dose Ordered Sig/Seng Route Start Time Stop Time Status Last Admin (Milk Of Magnesia Liq) 30 ml Q12H PRN PO 01/20/17 16:45 01/23/17 18:20 (Senokot) 17.2 mg Q12H PRN PO 01/20/17 16:45 (Dulcolax Supp) 10 mg DAILY PRN RECTAL 01/20/17 16:45 (Lactulose Liq) 30 ml DAILY PRN PO 01/20/17 16:45 (Tylenol) 650 mg Q4H PRN PO 01/21/17 03:30 (Protonix) 40 mg DAILY PO 01/22/17 09:00 02/08/17 08:07 (Cordarone) 200 mg DAILY PO 01/23/17 09:00 02/08/17 08:07 (Aspirin Chew) 81 mg DAILY PO 01/23/17 09:00 02/08/17 08:07 (Lipitor) 40 mg HS PO 01/22/17 21:00 02/07/17 19:51 (Coreg) 6.25 mg Q12HR PO 01/22/17 21:00 02/08/17 08:07 (Cymbalta Dr) 60 mg BID PO 01/22/17 21:00 02/08/17 08:07 (Singulair) 10 mg HS PO 01/22/17 21:00 02/07/17 19:53 (Vitamin D3) 5,000 units DAILY PO 01/23/17 09:00 02/08/17 08:07 Gabapentin 400 mg 400 mg Q6HR PO 01/24/17 18:00 02/08/17 10:05 (Vancomycin Consult Pharmacy) 0 ml @ 0 mls/hr UNSCH OTHER 01/27/17 14:45 (Heparin Inj) 5,000 units Q12HR SQ 01/28/17 21:00 02/07/17 19:53 Metformin HCl 500 mg 500 mg DAILY PO 01/31/17 09:00 02/08/17 08:07 (Vancomycin Inj/ NS 250 ml Inj) 250 ml @ 250 mls/hr Q18H IV 02/01/17 14:00 02/08/17 08:07 Oxycodone/ Acetaminophen 1 tab 1 tab Q6H PO 02/02/17 14:00 02/08/17 08:07 (NS 1000 ml Inj) 1,000 ml @ 0 mls/hr Q0M IV 02/05/17 12:15 (Dilaudid) 2 mg Q4H PRN PO 02/06/17 13:00 02/08/17 10:05 (Dilaudid Pf Inj) 0.2 mg 2XWEEK PRN IV PUSH 02/06/17 13:00 02/06/17 22:14 (NS Flush) See Protocol DAILY IV FLUSH 02/07/17 09:00 02/08/17 08:20 (NS Flush) See Protocol UNSCH PRN IV FLUSH 02/06/17 18:00 (Heparin Central Flush) See Protocol DAILY IV FLUSH 02/07/17 09:00 02/08/17 08:07 (Heparin Central Flush) See Protocol UNSCH PRN IV FLUSH 02/06/17 18:00 (NS Flush) UNSCH PRN IV FLUSH 02/06/17 18:00 Miscellaneous Information SPECIFIC LAB TO BE ... ONCE ONCE .XX 02/11/17 07:45 02/11/17 07:46 A/P Assessment and Plan 61 yo female with history of DM, Coronary Artery Disease, Breast Cancer, Morbid obesity, and systemic lupus. She initially underwent right above the knee amputation on January 13, 2017. Status post Right AKA - Wound vac continued. Wound care nurse following, appreciate input. Vascular surgery following patient, recommended wound vac for an additional 10 days from 02/04/17. - Continue physical therapy to work on transfers. Patient displaying high motivation to work with PT. - Continue pain management. Continue Neurontin. Continue Percocet 10/325 mg PO q6hrs scheduled. Continue Morphine IV and Dilaudid IV PRN per pain scale. - Wound cultures growing MRSA on 01/29/17. - ID following, appreciate input. Recommendations for IV Vancomycin until 07/20. Follow Vanco trough and peaks. Severe anemia secondary to acute blood loss, improved. - Status post 4 units PRBC. - Status post EGD. Biopsy for H. pylori negative. Follow up pathology with chronic gastritis. - No signs or symptoms of bleeding. Monitor. - H/H stable. Systolic congestive heart failure, chronic Chronic dilated cardiomyopathy - ECHO from 11/2016 reviewed showing reduced EF of 25-30%. Mild LVH. Reduced systolic function. - Continue Coreg. - Monitor I/O and daily weight. Peripheral vascular disease, chronic: Stable. Continue aspirin. Type 2 diabetes mellitus, chronic: Continue metformin 500 mg daily. GI prophylaxis: Protonix DVT prophylaxis: SCDs. Heparin 5,000 units sq q12hr. Discharge Planning Patient refused SNF will go home with [facility] and continue PT and wound care will need to follow with PCP and with General Surgery. Kade Hyatt MD Feb 08, 2017 11:09
--- NOTE | 2017-02-08 11:18 | HHI.FF ---
Face to Face Verification Diagnosis: (1) Amputation stump infection (2) Methicillin resistant Staphylococcus aureus infection Physical Therapy Order: Evaluate and Treat, Improve ambulation, Strength and gait training Home Health Nursing Order: Medical education Signs/symptoms of disease process Diabetic education Medication education-adverse effect Wound care and dressing changes Nursing assessment with vital signs IV medication administration I have seen patient Zahra Finnegan on 02/08/17. My clinical findings support the need for the requested home health care services because: Ltd mobility - disease progression Deconditioned w/ increased weakness I certify that my clinical findings support that this patient is homebound because: Unsafe to leave home unassisted Kade Hyatt MD Feb 08, 2017 11:18
[2017-02-08] MEDS: HYDROmorphone HCL PF 1 MG/ML VIAL IV PUSH PRN (11:44)
[2017-02-08 12:00] VITALS: BP 128/60; PULSE 60; RESP 20; TEMP 98.1; O2SAT 95
[2017-02-08] MEDS ORDERED: LIPI40TA PO (12:32)
[2017-02-08] MEDS ORDERED: MONT10TA4 PO (12:32)
[2017-02-08] MEDS ORDERED: GABA300C5 PO (12:32)
[2017-02-08] MEDS ORDERED: DULO1CAP3 PO ×2 (12:32→12:33)
[2017-02-08] MEDS ORDERED: OXYC1TAB36 PO (12:32)
[2017-02-08] MEDS ORDERED: METF500 PO (12:32)
[2017-02-08] MEDS ORDERED: ASPI81CH PO (12:32)
[2017-02-08] MEDS ORDERED: AMIO200T PO (12:32)
[2017-02-08] MEDS ORDERED: CARV6.25 PO (12:32)
[2017-02-08] MEDS ORDERED: DILA2TAB2 PO (12:32)
--- NOTE | 2017-02-08 13:09 | HHI.DS ---
Discharge Summary Admission Date Jan 20, 2017 at 16:14 Discharge Date: Feb 08, 2017 Admitting Diagnosis Hemorrhagic shock (1) Anemia due to acute blood loss ICD Code: D62 Diagnosis: Principal (2) Diabetes mellitus ICD Code: E11.9 Diagnosis: Principal (3) Methicillin resistant Staphylococcus aureus infection ICD Code: A49.02 Diagnosis: Principal (4) Amputation of lower extremity above knee with complication ICD Code: S78.119A Diagnosis: Principal Procedures EGD Surgical debridement of her right stump. Brief History - From Admission The patient is a 61-year-old female with past medical history of coronary artery disease with previous CABG, diabetes mellitus and breast CA with a bilateral mastectomy, systemic lupus erythematosus, status post right above knee amputation on January [address] Wakefield. She presented to [facility] ED with generalized weakness, decreased p.o. intake. On arrival to the ER she was hypotensive with a systolic blood pressure 70s to 80s. Her laboratory data significant for a hemoglobin of 5.8, hematocrit 18.7 and acute kidney injury with creatinine level of 1.36. In the ER she received 2 liters of normal saline and scheduled to receive 4 units of packed RBCs. According to the , the patient's right thigh has been progressively getting larger since surgery. Case discussed with Dr. Wakefield from vascular surgery and plan to see the patient soon. When seen in the ER she is on BiPap 12/5 with 35% FIO2. ABG on a nasal cannula showed a pH of 7.25, CO2 51, pAO2 137, bicarb 22 and saturation of 96%. The patient is awake and responds to questions appropriately, however, feels tired. She was also found to be bradycardic in the 30s and she was given 1 mg of atropine by EVAC and her heart rate improved to the 60s. CBC/BMP: 02/07/17 0620 Significant Findings Laboratory Tests Test 02/07/17 06:20 Estimat Glomerular Filtration 83 ML/MIN (>89) Rate Imaging Last Impressions Chest X-Ray 02/06/17 0000 Signed Impressions: Service Date/Time: February 17:41 - CONCLUSION: 1. Right PICC line tip in good position. 2. Minimal left lower lobe patchy airspace disease, likely atelectasis/scarring. Dong Marks MD Head CT 01/20/17 0000 Signed Impressions: Service Date/Time: Friday, January 20, 2017 18:51 - CONCLUSION: No acute intracranial abnormality is identified. Femi Barron MD PE at Discharge GENERAL: Well-developed patient, sitting in bed in no apparent distress. SKIN: No rashes, warm and dry. Right AK stump wound VAC in place, suction continued, serosanguineous fluid noted. HEAD: Atraumatic. Normocephalic. EYES: Pupils equal round and reactive. Extraocular motions intact. No scleral icterus. ENT: Nose without bleeding, or drainage, Airway patent. NECK: Trachea midline. Supple CARDIOVASCULAR: Regular rate and rhythm. No murmur appreciated. RESPIRATORY: Fair air entry bilaterally. No wheezes, rales, or rhonchi. GASTROINTESTINAL: Abdomen soft, non-tender, nondistended. Positive bowel sounds x 4 q. MUSCULOSKELETAL: Right AKA vacuum in place. NEUROLOGICAL: Awake and alert. Moves all extremity. Normal speech. no focal neurological deficit Hospital Course This is a pleasant 61 y/o Female she came in the past to this facility with infected Below Knee wound from prior amputation and she was treated with eqhyz-jof-dwme amputation after antibiotic treatment for resistant bacteria including MRSA and very resistant Pseudomonas. She was discharge from the hospital on January 18/2017, She was admitted the hospital with cardiac complaints and she was found to be very weak and was bradycardic and was given atropine and she was also noted to be hypotensive with a blood pressure of 60/ 30. She was given fluid boluses and her blood pressure improved. She had a white count of 12,000 on admission. She was admitted with severe anemia with a hemoglobin of 5.8. In the interim, she was evaluated by general surgery for the wound of the right lower extremity. 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 no nausea, vomit or diarrhea. 02/07: Seen in her bedroom, discussed with patient and her , she will need to go to Rehab as per Physical therapy specialist present at this time, also discussed with [employer] she won't have possibility to go to Rehab at this time due to Insurance issues, I will place order for discharge to SNF and [employer] will handle the situation, No nausea, vomit or diarrhea. 02/08: Stable in her bedroom, discussed with nurse and with patient and with hospital manager everything ready for the patient to go home, will have a follow up with PCP and with Doctor Ashu Avila and follow recommendations. Assessment and Plan 61 yo female with history of DM, Coronary Artery Disease, Breast Cancer, Morbid obesity, and systemic lupus. She initially underwent right above the knee amputation on January 13, 2017. Status post Right AKA - Wound vac continued. Wound care nurse following, appreciate input. Vascular surgery following patient, recommended wound vac for an additional 10 days from 02/04/17. - Continue physical therapy to work on transfers. Patient displaying high motivation to work with PT. - Continue pain management. Continue Neurontin. Continue Percocet 10/325 mg PO q6hrs scheduled. Continue Morphine IV and Dilaudid IV PRN per pain scale. - Wound cultures growing MRSA on 01/29/17. - ID following, appreciate input. Recommendations for IV Vancomycin until 07/20. Follow Vanco trough and peaks. Severe anemia secondary to acute blood loss, improved. - Status post 4 units PRBC. - Status post EGD. Biopsy for H. pylori negative. Follow up pathology with chronic gastritis. - No signs or symptoms of bleeding. Monitor. - H/H stable. Systolic congestive heart failure, chronic Chronic dilated cardiomyopathy - ECHO from 11/2016 reviewed showing reduced EF of 25-30%. Mild LVH. Reduced systolic function. - Continue Coreg. - Monitor I/O and daily weight. Peripheral vascular disease, chronic: Stable. Continue aspirin. Type 2 diabetes mellitus, chronic: Continue metformin 500 mg daily. GI prophylaxis: Protonix DVT prophylaxis: SCDs. Heparin 5,000 units sq q12hr. Discharge Planning Patient refused SNF will go home with C and continue PT and wound care will need to follow with PCP and with General Surgery. Pt Condition on Discharge: Stable Discharge Disposition: Disch w/ Home Health Serv Discharge Time: > 30 minutes Discharge Instructions DIET: Follow Instructions for: As Tolerated, No Restrictions Activities you can perform: Regular-No Restrictions Activities to Avoid: Driving Kade Hyatt MD Feb 08, 2017 13:09
[2017-02-11] MEDS ORDERED: PHARMACY ORDERED LAB ONE (07:45)
== END 2017-02-08 13:10 | disposition home health service (06) | DRG 802 ==
LOC: NEPC 13:52 → NEDA 16:14 → HIMW 19:05 → HCIS 01-21 23:43 → N04B 01-24 14:30
PROVIDERS: ADMIT Internal Medicine; ATTEND Internal Medicine
PROC: 30233N1 Transfusion of Nonautologous Red Blood Cells into Peripheral Vein, Percutaneous Approach (ICD-10-PCS; 2017-01-20)
PROC: 5A09357 Assistance with Respiratory Ventilation, Less than 24 Consecutive Hours, Continuous Positive Airway Pressure (ICD-10-PCS; 2017-01-20)
PROC: 0DB68ZX Excision of Stomach, Via Natural or Artificial Opening Endoscopic, Diagnostic (ICD-10-PCS; 2017-01-24)
PROC: 0HBHXZZ Excision of Right Upper Leg Skin, External Approach (ICD-10-PCS; principal; 2017-01-29 10:39)
DX: D62 Acute posthemorrhagic anemia (principal); J96.90 Respiratory failure, unspecified, unspecified whether with hypoxia or hypercapnia; N17.9 Acute kidney failure, unspecified; E87.2 Acidosis; I42.0 Dilated cardiomyopathy; I95.9 Hypotension, unspecified; I50.22 Chronic systolic (congestive) heart failure; C94.6 Myelodysplastic disease, not elsewhere classified; T87.43 Infection of amputation stump, right lower extremity; K95.89 Other complications of other bariatric procedure; E11.22 Type 2 diabetes mellitus with diabetic chronic kidney disease; E11.43 Type 2 diabetes mellitus with diabetic autonomic (poly)neuropathy; M32.9 Systemic lupus erythematosus, unspecified; R00.1 Bradycardia, unspecified; I73.9 Peripheral vascular disease, unspecified; I25.10 Atherosclerotic heart disease of native coronary artery without angina pectoris; N18.9 Chronic kidney disease, unspecified; S00.83XA Contusion of other part of head, initial encounter; M81.0 Age-related osteoporosis without current pathological fracture; T87.81 Dehiscence of amputation stump; K29.50 Unspecified chronic gastritis without bleeding; K31.84 Gastroparesis; E87.6 Hypokalemia; E83.42 Hypomagnesemia; G54.6 Phantom limb syndrome with pain; F32.9 Major depressive disorder, single episode, unspecified; F41.9 Anxiety disorder, unspecified; B95.62 Methicillin resistant Staphylococcus aureus infection as the cause of diseases classified elsewhere; W19.XXXA Unspecified fall, initial encounter; Y83.5 Amputation of limb(s) as the cause of abnormal reaction of the patient, or of later complication, without mention of misadventure at the time of the procedure; Y84.8 Other medical procedures as the cause of abnormal reaction of the patient, or of later complication, without mention of misadventure at the time of the procedure; Z89.611 Acquired absence of right leg above knee; Y92.019 Unspecified place in single-family (private) house as the place of occurrence of the external cause; Z79.84 Long term (current) use of oral hypoglycemic drugs; Z80.3 Family history of malignant neoplasm of breast; Z86.14 Personal history of Methicillin resistant Staphylococcus aureus infection; Z88.0 Allergy status to penicillin; Z88.2 Allergy status to sulfonamides; Z90.13 Acquired absence of bilateral breasts and nipples; Z91.013 Allergy to seafood; Z93.3 Colostomy status; Z95.1 Presence of aortocoronary bypass graft; Z95.5 Presence of coronary angioplasty implant and graft
CPT/HCPCS: 36430; 36569; 36600; 70450; 71010; 76937; 80048; 80053; 80202; 81001; 82550; 82552; 82565; 82805; 82948; 83735; 84100; 84443; 84484; 85014; 85018; 85025; 85027; 85610; 85730; 86403; 86850; 86900; 86901; 86920; 87015; 87040; 87070; 87086; 87102; 87116; 87147; 87186; 87205; 87206; 87641; 88305; 88312; 93005; 94002; 94640; 94664; C9113; J1170; J1642; J1644; J1815; J1940; J2270; J2370; J2405; J2543; J3370; J3475; J7030; J7050; P9016

== ENCOUNTER 2017-06-11 09:46 | Observation (INO) | payer MEDICARE, OTHER ==
[~2017-06-11] VITALS: Ht 152.4 cm; Wt 70.8 kg
[~2017-06-11 09:46] MED LIST changes: -ALEN1TAB48 PO; +ASPI-516 PO; -ASPI81CH PO; +DILA2TAB4 PO; +GETGO ROLLING W1 MI1; -LISI-519 PO; -MORP1TAB24 PO; -MORP1TAB25 PO; -MSIR15 PO; +OXYC1TAB36 PO; -PERI8.6T PO
[2017-06-11 11:00] LABS: AUTOMATED NEUTROPHIL # 6.1 TH/MM3 (1.8-7.7); BASOPHIL # 0.1 TH/MM3 (0-0.2); BASOPHIL % 1.2 % (0.0-2.0); EOSINOPHIL # 0.1 TH/MM3 (0-0.4); EOSINOPHIL % 1.2 % (0.0-4.0); HEMATOCRIT 37.3 % (35.0-46.0); HEMO FLAGS DIFF FINAL; LYMPH % 23.7 % (9.0-44.0); LYMPHOCYTE # 2.2 TH/MM3 (1.0-4.8); MEAN CELL VOLUME 92.4 FL (80.0-100.0); MEAN CORPUSCULAR HEMOGLOBIN 30.2 PG (27.0-34.0); MEAN CORPUSCULAR HGB CONC 32.7 % (32.0-36.0); MONO % 9.2 % (0.0-8.0); NEUT % 64.7 % (16.0-70.0); PLATELET COUNT 240 TH/MM3 (150-450); RED BLOOD COUNT 4.04 MIL/MM3 (4.00-5.30); WHITE BLOOD COUNT 9.4 TH/MM3 (4.0-11.0)
[2017-06-11] MEDS ORDERED: SODIUM CHLORID 0.9% 500 ML IV PRN (11:00)
[2017-06-11] MEDS ORDERED: INSULIN HUMAN REGULAR 1,000 UNITS/10 ML VIAL SQ PRN (11:00)
[2017-06-11] MEDS ORDERED: LACTATED RINGER'S 1000 ML IV PRN (11:00)
[2017-06-11] MEDS ORDERED: METOPROLOL TARTRATE 25 MG TAB PO PRN (11:00)
[2017-06-11 11:21] LABS: POTASSIUM 4.4 MEQ/L (3.5-5.1)
[2017-06-11] MEDS ORDERED: ePHEDrine/NS 25 MG/5 ML SYR IV ONE (12:00)
[2017-06-11] MEDS ORDERED: LIDOCAINE HCL 1% PF 5 ML AMPULE OTHER ONE (12:00)
[2017-06-11] MEDS ORDERED: ONDANSETRON HCL 4 MG/2 ML VIAL IV PUSH ONE (12:00)
[2017-06-11] MEDS ORDERED: DEXAMETHASONE SOD PHOS 4 MG/ML VIAL IV ONE (12:00)
[2017-06-11] MEDS ORDERED: PROPOFOL 200 MG/20 ML AMP IV ONE (12:00)
[2017-06-11] MEDS ORDERED: LEVOFLOXACIN 500 MG PREMIX INJ 100 ML IV ONE (12:05)
[2017-06-11] MEDS ORDERED: Post-op Orders (for Pharmacy) MISC XX ONE (13:29)
[2017-06-11] MEDS ORDERED: *morphine SULFATE 8 MG/ML PERIprocedure ONLY ONE ×2 (13:40→13:50)
[2017-06-11] MEDS ORDERED: *HYDROmorphone PF 1 MG VIAL PERIprocedural Use ONLY ONE ×2 (14:04→14:25)
[2017-06-11] MEDS ORDERED: ONDANSETRON HCL 4 MG/2 ML VIAL IV PUSH PRN (14:15)
[2017-06-11] MEDS ORDERED: NALOXONE HCL 0.4 MG/ML AMP IV PUSH PRN (14:15)
[2017-06-11] MEDS ORDERED: SODIUM CHLORIDE 0.9% FLUSH 10 ML FLUSH IV FLUSH PRN (14:15)
[2017-06-11] MEDS: SODIUM CHLOR 0.9% 1000 ML INJ 1,000 ML IV SCH (14:30)
[2017-06-11] MEDS: HYDROmorphone HCL 2 MG TAB PO PRN ×3 (14:53→22:42)
[2017-06-11] MEDS: GABAPENTIN 300 MG CAP PO SCH ×2 (14:53→22:17)
[2017-06-11] MEDS ORDERED: DO NOT ADM ANY ANTICOAGULANT DRUGS PRN (15:15)
[2017-06-11 16:30] VITALS: BP 165/83; PULSE 72; RESP 18; TEMP 97.2; O2SAT 93
--- NOTE | 2017-06-11 17:07 | PD.CONS ---
HPI Service [facility] Consult Requested By Vascular surgery Reason for Consult Medical management Primary Care Physician Alonso Robins MD Diagnoses: History of Present Illness 61 years old female who has an extensive past medical history including septic shock right leg infection status post BKA,H/O SLE, breast cancer status post bilateral mastectomy, diabetes mellitus, coronary artery disease status post stenting and CABG 5 vessels, history of hysterectomy, kidney stone, tonsillectomy,H/O intestinal fistula status post colostomy in the left upper quadrant was taken to the OR today and underwent revision of right AKA vascular surgery. Patient was seen in her room after procedure and denies any chest pain or shortness of breath Review of Systems Except as stated in HPI: all other systems reviewed are Neg Past Family Social History Allergies: Coded Allergies: iodine (Unverified Allergy, Severe, THROAT SWELLS, 06/11/17) pt states does not have a allergy to Iodine 01/11/16 JF penicillin G (Unverified Allergy, Severe, STOPPED BREATHING, 06/11/17) potassium iodide (Unverified Allergy, Severe, THROAT SWELLS, 06/11/17) pt states does not have a allergy to Iodine 01/11/16 JF povidone-iodine (Unverified Allergy, Severe, THROAT SWELLS, 06/11/17) pt states does not have a allergy to Iodine 01/11/16 JF shellfish derived (Unverified Allergy, Severe, THROAT SWELLS, 06/11/17) sodium iodide (Unverified Allergy, Severe, THROAT SWELLS, 06/11/17) pt states does not have a allergy to Iodine 01/11/16 JF sodium iodide (Unverified Allergy, Severe, THROAT SWELLS, 03/19/17) pt states does not have a allergy to Iodine 01/11/16 JF sulfamethoxazole (Unverified Allergy, Severe, Shortness of Breath, 03/19/17 ) trimethoprim (Unverified Allergy, Severe, Shortness of Breath, 03/19/17) *MDRO Multi-Drug Resistant Organism (Verified Adverse Reaction, Unknown, Brar resistant Pseudomonas, VRE, MRSA, 02/03/17) MRSA Knee Wound 01/2017 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, wound - 01/04/17 MRSA (urine)-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 on 12/21/16 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 Past Medical History Diabetes type 2 CAD History of kidney stone Prior history of breast cancer Past Surgical History BKA,H/O SLE, breast cancer status post bilateral mastectomy, diabetes mellitus , coronary artery disease status post stenting and CABG 5 vessels, history of hysterectomy, tonsillectomy,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 SKIN: No rashes, ecchymoses or lesions. Cool and dry. HEAD: Atraumatic. Normocephalic. No temporal or scalp tenderness. EYES: Pupils equal round and reactive. Extraocular motions intact. No scleral icterus. No injection or drainage. ENT: Nose without bleeding, purulent drainage or septal hematoma. Throat without erythema, tonsillar hypertrophy or exudate. Uvula midline. Airway patent. NECK: Trachea midline. No JVD or lymphadenopathy. Supple, nontender, no meningeal signs. CARDIOVASCULAR: Regular rate and rhythm without murmurs, gallops, or rubs. RESPIRATORY: Clear to auscultation. Breath sounds equal bilaterally. No wheezes , rales, or rhonchi. GASTROINTESTINAL: Abdomen soft, non-tender, nondistended. No hepato-splenomegaly , or palpable masses. No guarding. MUSCULOSKELETAL: Extremities without clubbing, cyanosis, or edema. Dressing over right AKA NEUROLOGICAL: Awake and alert. Cranial nerves II through XII intact. Motor and sensory grossly within normal limits. Five out of 5 muscle strength in all muscle groups. Normal speech. Laboratory Laboratory Tests Test 06/11/17 10:30 White Blood Count 9.4 Red Blood Count 4.04 Hemoglobin 12.2 Hematocrit 37.3 Mean Corpuscular Volume 92.4 Mean Corpuscular Hemoglobin 30.2 Mean Corpuscular Hemoglobin Concent 32.7 Red Cell Distribution Width 15.0 Platelet Count 240 Mean Platelet Volume 7.7 Neutrophils (%) (Auto) 64.7 Lymphocytes (%) (Auto) 23.7 Monocytes (%) (Auto) 9.2 Eosinophils (%) (Auto) 1.2 Basophils (%) (Auto) 1.2 Neutrophils # (Auto) 6.1 Lymphocytes # (Auto) 2.2 Monocytes # (Auto) 0.9 Eosinophils # (Auto) 0.1 Basophils # (Auto) 0.1 CBC Comment DIFF FINAL Differential Comment Blood Urea Nitrogen 22 Creatinine 0.86 Random Glucose 189 Calcium Level 8.6 Sodium Level 139 Potassium Level 4.4 Chloride Level 104 Carbon Dioxide Level 27.0 Anion Gap 8 Estimat Glomerular Filtration Rate 67 Date/Time Source Procedure Growth Status 06/11/17 12:57 Wound Leg Gram Stain Pending Received 06/11/17 12:57 Wound Leg Wound Culture Pending Received Result Diagram: 06/11/17 1030 06/11/17 1030 Assessment and Plan Assessment and Plan 61 year-old female with Revision of right AKA Management per vascular surgery Pain management accordingly PT consult to treat and eval Borderline diabetes type 2 Continue outpatient medications History of CAD, hyperlipidemia, hypertension Continue outpatient medications DVT prophylaxis: SCD to left lower extremity Thank you for this consultation Code Status Full code Discussed Condition With Patient Jean Aviles MD Jun 11, 2017 17:07
[2017-06-11] MEDS: VANCOMYCIN INJ 1,000 MG in SODIUM CHLOR 0.9% 250 ML INJ 250 ML IV SCH (17:48)
[2017-06-11] MEDS: CLINDAMYCIN INJ 600 MG in SODIUM CHLORIDE 0.9% INJ 50 ML IV SCH (17:48)
[2017-06-11] MEDS: metFORMIN HCL 500 MG TAB PO SCH (17:49)
[2017-06-11 20:03] VITALS: BP 136/67; PULSE 80; RESP 18; TEMP 98.6; O2SAT 93
[2017-06-11] MEDS ORDERED: HYDROmorphone HCL PF 0.5 MG/0.5 ML SYRINGE IV PUSH ONE (20:45)
[2017-06-11] MEDS: SODIUM CHLORIDE 0.9% FLUSH 10 ML FLUSH IV FLUSH SCH (21:00)
[2017-06-11] MEDS ORDERED: MONTELUKAST SODIUM 10 MG TAB PO SCH (21:00)
[2017-06-11] MEDS: DULoxetine HCl DR 60 MG CAP PO SCH ×2 (21:00→22:17)
[2017-06-11] MEDS: FAMOTIDINE 20 MG TAB PO SCH (22:18)
[2017-06-11] MEDS: ATORVASTATIN 40 MG TAB PO SCH (22:18)
[2017-06-11] MEDS: CARVEDILOL 6.25 MG TAB PO SCH (22:18)
[2017-06-12] VITALS (7 sets, daily range): BP systolic 142–182; BP diastolic 69–88; PULSE 73–84; RESP 16–20; TEMP 97.5–98.8; O2SAT 95–98
[2017-06-12] MEDS: CLINDAMYCIN INJ 600 MG in SODIUM CHLORIDE 0.9% INJ 50 ML IV SCH ×2 (01:26→08:31)
[2017-06-12] MEDS ORDERED: HYDROmorphone HCL PF 0.5 MG/0.5 ML SYRINGE IV PUSH ONE (02:30)
[2017-06-12] MEDS: GABAPENTIN 300 MG CAP PO SCH ×4 (02:30→20:21)
[2017-06-12] MEDS: HYDROmorphone HCL 2 MG TAB PO PRN ×5 (04:02→23:20)
[2017-06-12] MEDS: VANCOMYCIN INJ 1,000 MG in SODIUM CHLOR 0.9% 250 ML INJ 250 ML IV SCH (05:04)
[2017-06-12 06:58] LABS: AUTOMATED NEUTROPHIL # 10.3 TH/MM3 (1.8-7.7); BASOPHIL % 0.3 % (0.0-2.0); HEMO FLAGS DIFF FINAL; LYMPH % 14.3 % (9.0-44.0); MEAN CELL VOLUME 92.4 FL (80.0-100.0); MEAN CORPUSCULAR HEMOGLOBIN 30.6 PG (27.0-34.0); MEAN CORPUSCULAR HGB CONC 33.1 % (32.0-36.0); NEUT % 74.4 % (16.0-70.0); PLATELET COUNT 206 TH/MM3 (150-450); RED BLOOD COUNT 3.57 MIL/MM3 (4.00-5.30); RED CELL DISTRIBUTION WIDTH 15.1 % (11.6-17.2); WHITE BLOOD COUNT 13.9 TH/MM3 (4.0-11.0)
[2017-06-12 07:21] LABS: BICARBONATE 26.5 MEQ/L (21.0-32.0)
[2017-06-12] MEDS: AMIODARONE 200 MG TAB PO SCH (08:17)
[2017-06-12] MEDS: CARVEDILOL 6.25 MG TAB PO SCH ×2 (08:17→20:21)
[2017-06-12] MEDS: DULoxetine HCl DR 60 MG CAP PO SCH ×2 (08:17→20:22)
[2017-06-12] MEDS: ASPIRIN 81 MG CHEW TAB PO SCH (08:17)
[2017-06-12] MEDS: FAMOTIDINE 20 MG TAB PO SCH ×2 (08:17→20:21)
[2017-06-12] MEDS: SODIUM CHLORIDE 0.9% FLUSH 10 ML FLUSH IV FLUSH SCH ×2 (08:18→21:00)
[2017-06-12] MEDS: metFORMIN HCL 500 MG TAB PO SCH ×2 (08:19→17:48)
--- NOTE | 2017-06-12 10:36 | PD.CAR.PN ---
CVT Progress Note Subjective/Hospital Course: 06/12/17 61-year-old female status post reresection of the right AKA stump after patient hit it against the wall split it open and the this resulted in delayed healing Patient had previous growth of MRSA in this and probably will have some positive cultures Incision is now clean and dry dressing is intact We will consult infectious disease and change patient to full admit due to pain management issues and IV antibiotics Objective: Vital Signs Date Time Temp Pulse Resp B/P (MAP) Pulse Ox O2 Delivery O2 Flow Rate FiO2 06/12/17 08:00 97.9 75 16 164/83 (110) 97 06/12/17 04:32 97.8 73 20 166/88 (114) 98 06/12/17 00:25 98.8 81 20 142/69 (93) 95 06/11/17 20:03 98.6 80 18 136/67 (90) 93 06/11/17 16:30 97.2 72 18 165/83 (110) 93 06/11/17 16:00 98.1 69 18 140/65 (90) 94 Room Air 06/11/17 15:30 74 18 130/79 (96) 95 Room Air 06/11/17 15:15 79 18 142/67 (92) 96 Room Air 06/11/17 15:00 76 18 113/69 (84) 95 Room Air 06/11/17 14:45 78 17 111/60 (77) 95 Room Air 06/11/17 14:30 74 15 122/58 (79) 95 Nasal Cannula 2 06/11/17 14:15 75 15 131/65 (87) 96 Nasal Cannula 2 06/11/17 14:00 72 16 132/64 (86) 95 Nasal Cannula 2 06/11/17 13:45 76 16 133/64 (87) 95 Nasal Cannula 2 06/11/17 13:34 97.8 76 16 140/ 96 Nasal Cannula 2 06/11/17 10:37 97.8 66 18 114/64 (81) 98 Labs: Laboratory Tests Test 06/12/17 06:24 White Blood Count 13.9 TH/MM3 (4.0-11.0) Red Blood Count 3.57 MIL/MM3 (4.00-5.30) Hemoglobin 10.9 GM/DL (11.6-15.3) Hematocrit 33.0 % (35.0-46.0) Mean Corpuscular Volume 92.4 FL (80.0-100.0) Mean Corpuscular Hemoglobin 30.6 PG (27.0-34.0) Mean Corpuscular Hemoglobin Concent 33.1 % (32.0-36.0) Red Cell Distribution Width 15.1 % (11.6-17.2) Platelet Count 206 TH/MM3 (150-450) Mean Platelet Volume 7.6 FL (7.0-11.0) Neutrophils (%) (Auto) 74.4 % (16.0-70.0) Lymphocytes (%) (Auto) 14.3 % (9.0-44.0) Monocytes (%) (Auto) 11.0 % (0.0-8.0) Eosinophils (%) (Auto) 0.0 % (0.0-4.0) Basophils (%) (Auto) 0.3 % (0.0-2.0) Neutrophils # (Auto) 10.3 TH/MM3 (1.8-7.7) Lymphocytes # (Auto) 2.0 TH/MM3 (1.0-4.8) Monocytes # (Auto) 1.5 TH/MM3 (0-0.9) Eosinophils # (Auto) 0.0 TH/MM3 (0-0.4) Basophils # (Auto) 0.0 TH/MM3 (0-0.2) CBC Comment DIFF FINAL Differential Comment Blood Urea Nitrogen 13 MG/DL (7-18) Creatinine 0.76 MG/DL (0.50-1.00) Random Glucose 259 MG/DL (74-106) Calcium Level 8.6 MG/DL (8.5-10.1) Sodium Level 138 MEQ/L (136-145) Potassium Level 4.0 MEQ/L (3.5-5.1) Chloride Level 102 MEQ/L (98-107) Carbon Dioxide Level 26.5 MEQ/L (21.0-32.0) Anion Gap 10 MEQ/L (5-15) Estimat Glomerular Filtration Rate 78 ML/MIN (>89) Result Diagram: 06/12/1762306/12/1724 Chantale Wakefield MD Jun 12, 2017 10:36
--- NOTE | 2017-06-12 11:14 | MP ---
cc: CHANTALE EVANS MD DATE OF SURGERY 06/11/2017 PREOPERATIVE DIAGNOSES 1. Dehiscence and nonhealing of the right AKA stump status post multiple traumas to the stump. 2. COPD. 3. Delayed healing. POSTOPERATIVE DIAGNOSES 1. Dehiscence and nonhealing of the right AKA stump status post multiple traumas to the stump. 2. COPD. 3. Delayed healing. OPERATIVE PROCEDURE Right AKA stump, re-resection, revision and closure. SURGEON MD Ashu ANESTHESIA General. ESTIMATED BLOOD LOSS 100 cc. INDICATIONS FOR PROCEDURE This 61-year-old female with multiple medical problems and severe peripheral vascular disease and diabetes had an above-knee amputation in the past. She then and fell out of a wheelchair, split it open; this was closed again. The patient again had another two or three mishaps where she hit the wall with the stump and then she was admitted to a group home where she fell out of bed, so the stump again fell open. The patient is now taken to the operating room for the re-debridement and closure. OPERATIVE PROCEDURE The patient is prepped and draped in the usual fashion and with a marker incision is outlined. With 10 blade the skin is incised in an oblique fashion creating a fishmouth type incision, deepened down with cautery down to the bone. There is a callus there and the periosteum is elevated above the callus. With an oscillating saw the femur is transected and now the bone with the soft tissue anteriorly and the open wound is removed. The area is now irrigated with copious amounts of saline. No infection is now noted. Some tissue is sent for cultures anyway. The bone is now rasped down and then meticulous hemostasis obtained with 2-0 Vicryl stick ties. The incision is now approximated with 0 Vicryl interrupted stitches for muscle, then fascia and the skin is closed interrupted with 2-0 nylon spaced wide apart to allow for some drainage. Chantale RICK/DIANA /10:35 AM /11:03 AM
[2017-06-12] MEDS: ENOXAPARIN SODIUM 40 MG/0.4 ML SYRINGE SQ SCH (13:51)
--- NOTE | 2017-06-12 15:00 | HHI.PR ---
Subjective Remarks She has seen and examined Complains of poorly controlled pain Currently afebrile Objective Vitals Vital Signs Date Time Temp Pulse Resp B/P (MAP) Pulse Ox O2 Delivery O2 Flow Rate FiO2 06/12/17 12:00 98.8 76 16 175/80 (111) 98 06/12/17 08:00 97.9 75 16 164/83 (110) 97 06/12/17 04:32 97.8 73 20 166/88 (114) 98 06/12/17 00:25 98.8 81 20 142/69 (93) 95 06/11/17 20:03 98.6 80 18 136/67 (90) 93 06/11/17 16:30 97.2 72 18 165/83 (110) 93 06/11/17 16:00 98.1 69 18 140/65 (90) 94 Room Air 06/11/17 15:30 74 18 130/79 (96) 95 Room Air 06/11/17 15:15 79 18 142/67 (92) 96 Room Air 06/11/17 15:00 76 18 113/69 (84) 95 Room Air I/O 06/11/17 06/11/17 06/11/17 06/12/17 06/12/17 06/12/17 07:00 15:00 23:00 07:00 15:00 23:00 Intake Total 1000 ml 1260 ml 1095 ml 304 ml Output Total 275 ml 1400 ml 1400 ml Balance 725 ml -140 ml -305 ml 304 ml Intake Oral 780 ml 360 ml IV Total 480 ml 735 ml 304 ml Other 1000 ml Output Urine Total 1400 ml 1400 ml Estimated Blood Loss 50 ml Other 225 ml Result Diagram: 06/12/1762306/12/1724 Objective Remarks GENERAL: NAD SKIN: Warm and dry. HEAD: Normocephalic. EYES: No scleral icterus. No injection or drainage. NECK: Supple, trachea midline. No JVD or lymphadenopathy. CARDIOVASCULAR: Regular rate and rhythm without murmurs, gallops, or rubs. RESPIRATORY: Breath sounds equal bilaterally. No accessory muscle use. GASTROINTESTINAL: Abdomen soft, non-tender, nondistended. MUSCULOSKELETAL: Right AKA BACK: Nontender without obvious deformity. No CVA tenderness. A/P Assessment and Plan 61 year-old female with Revision of right AKA Management per vascular surgery Pain management accordingly PT consult to treat and eval Infectious disease specialist consultation pending secondary to patient with a history of MRSA Borderline diabetes type 2 Continue outpatient medications History of CAD, hyperlipidemia, hypertension Continue outpatient medications DVT prophylaxis: SCD to left lower extremity Jean Aviles MD Jun 12, 2017 15:00
[2017-06-12] MEDS ORDERED: DEXTROSE 50% IN WATER 50 ML VIAL(D50) IV PUSH PRN (16:45)
[2017-06-12] MEDS ORDERED: GLUCAGON 1 MG/ML VIAL OTHER PRN (16:45)
[2017-06-12] MEDS: SODIUM CHLOR 0.9% 1000 ML INJ 1,000 ML IV SCH (17:06)
[2017-06-12] MEDS: INSULIN ASPART SUPPLEMENTAL SCALE SQ SCH ×2 (17:25→20:22)
[2017-06-12] MEDS: ENALAPRILAT 2.5 MG/2 ML VIAL IV PUSH PRN ×2 (17:48→23:19)
[2017-06-12] MEDS: ATORVASTATIN 40 MG TAB PO SCH (20:21)
[2017-06-12] MEDS ORDERED: MORPHINE SULFATE 2 MG/ML INJ IV PUSH ONE (20:30)
--- NOTE | 2017-06-12 20:50 | MB ---
cc: FRANCISCO MANCIA MD DATE OF CONSULTATION 06/12/[address] Wakefield REASON FOR CONSULTATION Patient status post re-resection of AKA stump. Multiple medical problems and continues to either fall on the stump or break it open. Distal end removed with bone cultures pending. HISTORY OF PRESENT ILLNESS This is the 61-year-old white female who has had eucvn-thb-oxym amputation because of infection of the right leg. The patient has had infection of the right distal yvhva-wgz-rkok stump in the past due to MRSA. She presented with open wound at the stump site and she was admitted to the hospital and she underwent revision of the stump and tissue culture was sent. The preliminary evaluation of the sample shows immature growth. The stump was closed after resection of the distal aspect. This consultation is requested for antibiotic management. The patient's only complaint is pain, approximately a 9/10 scale in the right stump. She has no other complaints. She is afebrile and white blood cell count is mildly elevated at 13.9. PAST MEDICAL HISTORY Diabetes mellitus type 2, coronary artery disease. Systemic lupus erythematosus. History of breast cancer treated with bilateral mastectomy. Coronary artery disease. History of coronary artery bypass graft surgery. History of hysterectomy, tonsillectomy, colostomy. History of kidney stones. History of MRSA infection of the right jchyx-gph-zxld stump. ALLERGIES PENICILLIN, SULFAMETHOXAZOLE, TRIMETHOPRIM, SODIUM IODIDE, POVIDONE IODINE, POTASSIUM IODIDE. MEDICATIONS 1. Aspirin. 2. Cordarone. 3. Lovenox. 4. Vasotec. 5. Dilaudid p.r.n. 6. Lipitor. 7. Coreg. 8. Cymbalta. 9. Glucophage 10. Neurontin. 11. The patient was given clindamycin dose early today. SOCIAL HISTORY No tobacco, no alcohol, no illicit drugs. HISTORY Noncontributory. REVIEW OF SYSTEMS Negative on 10-point review except for pain in the right stump. PHYSICAL EXAMINATION GENERAL: This is a well-developed female who is in no acute distress. She is awake and alert and oriented. VITAL SIGNS: Include temperature 98.4, blood pressure 168/79, respirations 20, heart rate 84. HEENT: Extraocular movements grossly intact, pupils reactive to light. No icterus. Oropharynx moist mucosa without lesions. NECK: Supple without adenopathy. LUNGS: Clear breath sounds. HEART: Regular rate and rhythm. ABDOMEN: Bowel sounds present, soft, nontender. RECTAL: Not performed. EXTREMITIES: The right stump is clean and there is a surgical dressing in place. No erythema. The remaining extremities have no clubbing, cyanosis or edema. SKIN: No rash. NEURO: Nonfocal. PSYCH: The patient calm and cooperative. LABORATORY DATA WBC 13.9, 74% neutrophils, hemoglobin 11.9, platelets 206, creatinine 0.76, estimated GFR 78. IMPRESSION Wound dehiscence of right AKA stump. The patient status post revision of the stump and culture was taken and the results pending. RECOMMENDATIONS 1. Monitor the results of culture of the stump. 2. Hold off on additional antibiotics for now. The patient probably does not need additional antibiotics since the stump has been revised. However, further determination will be made once the results of the culture become available. Thank you for this consultation. I will follow her progress with you and make further recommendations if necessary. Francisco Mancia MD FD/GERA /4:49 PM /8:34 PM RAMON
[2017-06-12] MEDS ORDERED: MONTELUKAST SODIUM 10 MG TAB PO SCH (21:00)
[2017-06-13] VITALS: BP 186/77; PULSE 83; RESP 16; TEMP 97.1; O2SAT 97
[2017-06-13] MEDS: SODIUM CHLOR 0.9% 1000 ML INJ 1,000 ML IV SCH ×2 (00:20→17:00)
[2017-06-13 01:10] VITALS: BP 170/84
[2017-06-13 03:20] VITALS: BP 186/80; PULSE 93; RESP 16; TEMP 96.9; O2SAT 98
[2017-06-13] MEDS: HYDROmorphone HCL 2 MG TAB PO PRN ×4 (03:39→16:40)
[2017-06-13] MEDS: GABAPENTIN 300 MG CAP PO SCH ×3 (03:39→13:58)
[2017-06-13] MEDS ORDERED: cloNIDine HCL 0.1 MG TAB PO SCH (04:45)
[2017-06-13 07:40] VITALS: BP 146/67; PULSE 16; RESP 16; TEMP 97.6; O2SAT 79; O2SAT 97
[2017-06-13] MEDS: metFORMIN HCL 500 MG TAB PO SCH (07:50)
[2017-06-13] MEDS: ASPIRIN 81 MG CHEW TAB PO SCH (07:50)
[2017-06-13] MEDS: FAMOTIDINE 20 MG TAB PO SCH (07:51)
[2017-06-13] MEDS: DULoxetine HCl DR 60 MG CAP PO SCH (07:51)
[2017-06-13] MEDS: SODIUM CHLORIDE 0.9% FLUSH 10 ML FLUSH IV FLUSH SCH (07:51)
[2017-06-13] MEDS: AMIODARONE 200 MG TAB PO SCH (07:51)
[2017-06-13] MEDS: INSULIN ASPART SUPPLEMENTAL SCALE SQ SCH ×3 (08:11→17:07)
[2017-06-13] MEDS ORDERED: CARVEDILOL 12.5 MG TAB PO SCH (09:00)
--- NOTE | 2017-06-13 10:08 | PD.CAR.PN ---
CVT Progress Note Subjective/Hospital Course: 06/12/17 61-year-old female status post reresection of the right AKA stump after patient hit it against the wall split it open and the this resulted in delayed healing Patient had previous growth of MRSA in this and probably will have some positive cultures Incision is now clean and dry dressing is intact We will consult infectious disease and change patient to full admit due to pain management issues and IV antibiotics 06/13/17 Patient doing well Incision is clean and dry no drainage No redness or any signs of infection Cultures are positive for MRSA as I expected and antibiotics will be determined by Dr. Briceno Patient can go home any time as long as we cover her adequately Hopefully we'll discharge patient today for arrangements can be made at home for antibiotic therapy Objective: Vital Signs Date Time Temp Pulse Resp B/P (MAP) Pulse Ox O2 Delivery O2 Flow Rate FiO2 06/13/17 07:40 97.6 16 16 146/67 (93) 79 06/13/17 03:20 96.9 93 16 186/80 (115) 98 06/13/17 01:10 170/84 (112) 06/13/17 00:00 97.1 83 16 186/77 (113) 97 06/12/17 19:45 98.7 81 17 179/84 (115) 96 06/12/17 16:13 98.4 84 19 168/79 (108) 97 06/12/17 16:00 97.5 78 16 182/88 (119) 97 06/12/17 12:00 98.8 76 16 175/80 (111) 98 Result Diagram: 06/12/17 0624 06/12/17 0624 Chantale Wakefield MD Jun 13, 2017 10:08
[2017-06-13 11:42] VITALS: BP 139/63; PULSE 78; RESP 17; TEMP 98; O2SAT 98
[2017-06-13] MEDS ORDERED: MUPI2%T TOPICAL (11:47)
--- NOTE | 2017-06-13 11:56 | HHI.IDPN ---
Note Infectious Disease Note Patient feels okay. No distress. Afebrile. Surgical tissue culture has MRSA. PAST MEDICAL HISTORY Diabetes mellitus type 2, coronary artery disease. Systemic lupus erythematosus. History of breast cancer treated with bilateral mastectomy. Coronary artery disease. History of coronary artery bypass graft surgery. History of hysterectomy, tonsillectomy, colostomy. History of kidney stones. History of MRSA infection of the right swslv-fnw-gyer stump. ALLERGIES PENICILLIN, SULFAMETHOXAZOLE, TRIMETHOPRIM, SODIUM IODIDE, POVIDONE IODINE, POTASSIUM IODIDE. OBJECTIVE: Vital Signs Date Time Temp Pulse Resp B/P (MAP) Pulse Ox O2 Delivery O2 Flow Rate FiO2 06/13/17 07:40 97.6 16 16 146/67 (93) 79 06/13/17 03:20 96.9 93 16 186/80 (115) 98 06/13/17 01:10 170/84 (112) 06/13/17 00:00 97.1 83 16 186/77 (113) 97 06/12/17 19:45 98.7 81 17 179/84 (115) 96 06/12/17 16:13 98.4 84 19 168/79 (108) 97 06/12/17 16:00 97.5 78 16 182/88 (119) 97 06/12/17 12:00 98.8 76 16 175/80 (111) 98 Laboratory Tests Test 06/12/17 06:24 White Blood Count 13.9 TH/MM3 Red Blood Count 3.57 MIL/MM3 Hemoglobin 10.9 GM/DL Hematocrit 33.0 % Mean Corpuscular Volume 92.4 FL Mean Corpuscular Hemoglobin 30.6 PG Mean Corpuscular Hemoglobin Concent 33.1 % Red Cell Distribution Width 15.1 % Platelet Count 206 TH/MM3 Mean Platelet Volume 7.6 FL Neutrophils (%) (Auto) 74.4 % Lymphocytes (%) (Auto) 14.3 % Monocytes (%) (Auto) 11.0 % Eosinophils (%) (Auto) 0.0 % Basophils (%) (Auto) 0.3 % Neutrophils # (Auto) 10.3 TH/MM3 Lymphocytes # (Auto) 2.0 TH/MM3 Monocytes # (Auto) 1.5 TH/MM3 Eosinophils # (Auto) 0.0 TH/MM3 Basophils # (Auto) 0.0 TH/MM3 CBC Comment DIFF FINAL Differential Comment Laboratory Tests Test 06/12/17 06:24 Blood Urea Nitrogen 13 MG/DL Creatinine 0.76 MG/DL Random Glucose 259 MG/DL Calcium Level 8.6 MG/DL Sodium Level 138 MEQ/L Potassium Level 4.0 MEQ/L Chloride Level 102 MEQ/L Carbon Dioxide Level 26.5 MEQ/L Anion Gap 10 MEQ/L Estimat Glomerular Filtration Rate 78 ML/MIN Microbiology Date/Time Source Procedure Growth Status 06/11/17 12:57 Wound Leg Gram Stain - Final Complete 06/11/17 12:57 Wound Culture - Final S. Aureus Mrsa Complete PHYSICAL EXAMINATION GENERAL: No acute distress. She is awake and alert and oriented. HEENT: Extraocular movements grossly intact, pupils reactive to light. No icterus. Oropharynx moist mucosa without lesions. NECK: Supple without adenopathy. LUNGS: Clear breath sounds. HEART: Regular rate and rhythm. ABDOMEN: Bowel sounds present, soft, nontender. EXTREMITIES: The right stump is clean and dry. SKIN: No rash. NEURO: Nonfocal. PSYCH: Calm and cooperative. IMPRESSION Wound dehiscence of right AKA stump. The patient status post revision of the stump. Culture of the tissue has MRSA. RECOMMENDATIONS Since she has had resection of the distal bone use Bactroban ointment at the stump incision x 2 weeks[address] Follow up with Dr Garcia as outpatient. Patient to call for appointment. Script for Bactroban ointment written. Okay to discharge. Ike Briceno MD Jun 13, 2017 11:56
--- NOTE | 2017-06-13 13:25 | HHI.PR ---
Subjective Remarks Patient seen and examined Reports improvement of right stump pain Afebrile Objective Vitals Vital Signs Date Time Temp Pulse Resp B/P (MAP) Pulse Ox O2 Delivery O2 Flow Rate FiO2 06/13/17 11:42 98.0 78 17 139/63 (88) 98 06/13/17 07:40 97.6 16 16 146/67 (93) 97 06/13/17 03:20 96.9 93 16 186/80 (115) 98 06/13/17 01:10 170/84 (112) 06/13/17 00:00 97.1 83 16 186/77 (113) 97 06/12/17 19:45 98.7 81 17 179/84 (115) 96 06/12/17 16:13 98.4 84 19 168/79 (108) 97 06/12/17 16:00 97.5 78 16 182/88 (119) 97 I/O 06/12/17 06/12/17 06/12/17 06/13/17 06/13/17 06/13/17 07:00 15:00 23:00 07:00 15:00 23:00 Intake Total 1095 ml 304 ml 3028 ml 600 ml Output Total 1400 ml 3950 ml 950 ml Balance -305 ml 304 ml -922 ml -350 ml Intake Oral 360 ml 2280 ml 600 ml IV Total 735 ml 304 ml 748 ml Output Urine Total 1400 ml 3950 ml 950 ml # Bowel Movements 1 Result Diagram: 06/12/1762306/12/1724 Objective Remarks GENERAL: NAD SKIN: Warm and dry. HEAD: Normocephalic. EYES: No scleral icterus. No injection or drainage. NECK: Supple, trachea midline. No JVD or lymphadenopathy. CARDIOVASCULAR: Regular rate and rhythm without murmurs, gallops, or rubs. RESPIRATORY: Breath sounds equal bilaterally. No accessory muscle use. GASTROINTESTINAL: Abdomen soft, non-tender, nondistended. MUSCULOSKELETAL: Right AKA BACK: Nontender without obvious deformity. No CVA tenderness. A/P Assessment and Plan 61 year-old female with Revision of right AKA Management per vascular surgery Pain management accordingly PT to treat and eval Infectious disease specialist consultation appreciated however patient does not need any antibiotics Borderline diabetes type 2 Continue outpatient medications History of CAD, hyperlipidemia, hypertension Continue outpatient medications DVT prophylaxis: SCD to left lower extremity Jean Aviles MD Jun 13, 2017 13:25
[2017-06-13] MEDS: ENOXAPARIN SODIUM 40 MG/0.4 ML SYRINGE SQ SCH (13:58)
== END 2017-06-13 17:24 | disposition home or self-care (01) ==
LOC: HSDC 09:46 → EDSTATUS 11:30 → HSDI 14:15 → N06A 16:35
PROVIDERS: ADMIT Surgery; ATTEND Surgery
DX: T87.81 Dehiscence of amputation stump (principal); L08.9 Local infection of the skin and subcutaneous tissue, unspecified; J44.9 Chronic obstructive pulmonary disease, unspecified; I25.10 Atherosclerotic heart disease of native coronary artery without angina pectoris; I10 Essential (primary) hypertension; E78.5 Hyperlipidemia, unspecified; E11.51 Type 2 diabetes mellitus with diabetic peripheral angiopathy without gangrene; I73.9 Peripheral vascular disease, unspecified; M32.9 Systemic lupus erythematosus, unspecified; Z85.3 Personal history of malignant neoplasm of breast; Z95.1 Presence of aortocoronary bypass graft; Z93.3 Colostomy status; Z90.13 Acquired absence of bilateral breasts and nipples; Z95.5 Presence of coronary angioplasty implant and graft; W05.0XXA Fall from non-moving wheelchair, initial encounter; W06.XXXA Fall from bed, initial encounter; Y83.5 Amputation of limb(s) as the cause of abnormal reaction of the patient, or of later complication, without mention of misadventure at the time of the procedure
CPT/HCPCS: 80048; 82948; 85025; 87070; 87077; 87176; 87186; 87205; 87641; 88305; 96361; 96365; 96366; 96367; 96372; 96375; 96376; J1170; G0378; J1100; J1650; J1815; J1956; J2270; J2405; J3010; J3370; J7030; J7050

== ENCOUNTER 2017-06-24 13:21 | Emergency (ER) | payer OTHER, MEDICARE ==
[~2017-06-24] VITALS: Ht 152.4 cm; Wt 70.0 kg
[~2017-06-24 13:21] MED LIST changes: -CHOL50006 PO; +MUPI2%T TOPICAL; -OXYC1TAB36 PO
[2017-06-24 13:38] VITALS: BP 118/61; PULSE 82; RESP 16; TEMP 98.4; O2SAT 97
[2017-06-24] MEDS ORDERED: MIRT30TA PO (15:51)
[2017-06-24] MEDS ORDERED: LOSA25TA PO (15:51)
[2017-06-24] MEDS ORDERED: NOVO7030P2 SQ (15:51)
[2017-06-24] MEDS ORDERED: IPRASOL INH (15:51)
[2017-06-24] MEDS ORDERED: CARV3.12 PO (15:51)
[2017-06-24] MEDS ORDERED: VENTAER INH (15:51)
[2017-06-24] MEDS ORDERED: ISOS30TA3 PO (15:51)
[2017-06-24] MEDS ORDERED: OXYC1TAB36 PO (15:51)
[2017-06-24] MEDS ORDERED: D3 U5000 PO (15:51)
[2017-06-24] MEDS ORDERED: TIZA4TAB PO (15:51)
[2017-06-24 15:59] VITALS: O2SAT 99
[2017-06-24] MEDS ORDERED: MORPHINE SULFATE 4 MG/ML INJ IV PUSH ONE (16:00)
[2017-06-24 16:07] LABS: AUTOMATED NEUTROPHIL # 7.4 TH/MM3 (1.8-7.7); BASOPHIL # 0.4 TH/MM3 (0-0.2); BASOPHIL % 3.1 % (0.0-2.0); EOSINOPHIL # 0.2 TH/MM3 (0-0.4); HEMATOCRIT 32.9 % (35.0-46.0); HEMO FLAGS DIFF FINAL; LYMPH % 21.2 % (9.0-44.0); LYMPHOCYTE # 2.4 TH/MM3 (1.0-4.8); MEAN CELL VOLUME 89.8 FL (80.0-100.0); MEAN CORPUSCULAR HEMOGLOBIN 30.1 PG (27.0-34.0); MEAN CORPUSCULAR HGB CONC 33.5 % (32.0-36.0); MONO % 9.5 % (0.0-8.0); NEUT % 64.2 % (16.0-70.0); PLATELET COUNT 346 TH/MM3 (150-450); RED BLOOD COUNT 3.66 MIL/MM3 (4.00-5.30); RED CELL DISTRIBUTION WIDTH 13.8 % (11.6-17.2); WHITE BLOOD COUNT 11.5 TH/MM3 (4.0-11.0)
[2017-06-24 16:22] LABS: CHLORIDE 103 MEQ/L (98-107); POTASSIUM 4.7 MEQ/L (3.5-5.1); SODIUM (NA) 137 MEQ/L (136-145)
[2017-06-24 16:26] LABS: ANION GAP 6 MEQ/L (5-15); BICARBONATE 27.8 MEQ/L (21.0-32.0)
[2017-06-24 16:27] LABS: APTT (PATIENT) 22.2 SEC (24.3-30.1); BLOOD UREA NITROGEN 22 MG/DL (7-18); INTERNATIONAL NORMALIZED RATIO 0.9 RATIO; PROTHROMBIN TIME - PATIENT 10.2 SEC (9.8-11.6)
[2017-06-24 16:29] LABS: ALT (GPT) 16 U/L (10-53); AST (GOT) 14 U/L (15-37)
[2017-06-24 16:30] LABS: GLOMERULAR FILTRATION RATE 66 ML/MIN (>89)
[2017-06-24] MEDS ORDERED: HYDROmorphone HCL PF 1 MG/ML VIAL IV PUSH ONE (16:30)
[2017-06-24 16:31] LABS: TOTAL BILIRUBIN ADULT 0.4 MG/DL (0.2-1.0)
[2017-06-24 16:32] LABS: ALKALINE PHOSPHATASE 97 U/L (45-117)
--- NOTE | 2017-06-24 16:56 | HHI.HP ---
HPI Service [facility] Primary Care Physician Alonso Robins MD Admission Diagnosis Diagnoses: (1) Amputation stump infection Chief Complaint: pus coming out of amputation stump of right AKA Travel History International Travel<30 Days: No Contact w/Intl Traveler <30 Da: No Traveled to Known Affected Are: No History of Present Illness 61 years old female who has an extensive past medical history including septic shock right leg infection status post BKA,H/O SLE, breast cancer status post bilateral mastectomy, diabetes mellitus, coronary artery disease status post stenting and CABG 5 vessels, history of hysterectomy, kidney stone, tonsillectomy,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 Allergies: Coded Allergies: iodine (Unverified Allergy, Severe, THROAT SWELLS, 06/11/17) pt states does not have a allergy to Iodine 01/11/16 JF penicillin G (Unverified Allergy, Severe, STOPPED BREATHING, 06/11/17) potassium iodide (Unverified Allergy, Severe, THROAT SWELLS, 06/11/17) pt states does not have a allergy to Iodine 01/11/16 JF povidone-iodine (Unverified Allergy, Severe, THROAT SWELLS, 06/11/17) pt states does not have a allergy to Iodine 01/11/16 JF shellfish derived (Unverified Allergy, Severe, THROAT SWELLS, 06/11/17) sodium iodide (Unverified Allergy, Severe, THROAT SWELLS, 06/11/17) pt states does not have a allergy to Iodine 01/11/16 JF sodium iodide (Unverified Allergy, Severe, THROAT SWELLS, 03/19/17) pt states does not have a allergy to Iodine 01/11/16 JF sulfamethoxazole (Unverified Allergy, Severe, Shortness of Breath, 03/19/17 ) trimethoprim (Unverified Allergy, Severe, Shortness of Breath, 03/19/17) Family History Positive for diabetes denied CAD Social History Quit smoking over a year ago no alcohol or illicit drug abuse Physical Exam Vital Signs Vital Signs Date Time Temp Pulse Resp B/P (MAP) Pulse Ox O2 Delivery O2 Flow Rate FiO2 06/24/17 15:59 99 06/24/17 13:38 98.4 82 16 118/61 (80) 97 Physical Exam GENERAL: This is a well-nourished, well-developed patient, in no apparent distress. SKIN: No rashes, ecchymoses or lesions. Cool and dry. HEAD: Atraumatic. Normocephalic. No temporal or scalp tenderness. EYES: Pupils equal round and reactive. Extraocular motions intact. No scleral icterus. No injection or drainage. ENT: Nose without bleeding, purulent drainage or septal hematoma. Throat without erythema, tonsillar hypertrophy or exudate. Uvula midline. Airway patent. NECK: Trachea midline. No JVD or lymphadenopathy. Supple, nontender, no meningeal signs. CARDIOVASCULAR: Regular rate and rhythm without murmurs, gallops, or rubs. RESPIRATORY: Clear to auscultation. Breath sounds equal bilaterally. No wheezes , rales, or rhonchi. GASTROINTESTINAL: Abdomen soft, non-tender, nondistended. No hepato-splenomegaly , or palpable masses. No guarding. MUSCULOSKELETAL: Right AKA stump NEUROLOGICAL: Awake and alert. Cranial nerves II through XII intact. Motor and sensory grossly within normal limits. Five out of 5 muscle strength in all muscle groups. Normal speech. Laboratory Laboratory Tests Test 06/24/17 15:43 White Blood Count 11.5 Red Blood Count 3.66 Hemoglobin 11.0 Hematocrit 32.9 Mean Corpuscular Volume 89.8 Mean Corpuscular Hemoglobin 30.1 Mean Corpuscular Hemoglobin Concent 33.5 Red Cell Distribution Width 13.8 Platelet Count 346 Mean Platelet Volume 6.8 Neutrophils (%) (Auto) 64.2 Lymphocytes (%) (Auto) 21.2 Monocytes (%) (Auto) 9.5 Eosinophils (%) (Auto) 2.0 Basophils (%) (Auto) 3.1 Neutrophils # (Auto) 7.4 Lymphocytes # (Auto) 2.4 Monocytes # (Auto) 1.1 Eosinophils # (Auto) 0.2 Basophils # (Auto) 0.4 CBC Comment DIFF FINAL Differential Comment Prothrombin Time 10.2 Prothromb Time International Ratio 0.9 Activated Partial Thromboplast Time 22.2 Blood Urea Nitrogen 22 Creatinine 0.87 Random Glucose 148 Total Protein 7.7 Albumin 3.1 Calcium Level 8.4 Alkaline Phosphatase 97 Aspartate Amino Transf (AST/SGOT) 14 Alanine Aminotransferase (ALT/SGPT) 16 Total Bilirubin 0.4 Sodium Level 137 Potassium Level 4.7 Chloride Level 103 Carbon Dioxide Level 27.8 Anion Gap 6 Estimat Glomerular Filtration Rate 66 Lactic Acid Level 2.1 Date/Time Source Procedure Growth Status 06/24/17 15:45 Blood Peripheral Aerobic Blood Culture Pending Received 06/24/17 15:45 Blood Peripheral Anaerobic Blood Culture Pending Received Result Diagram: 06/24/17 1543 06/24/17 1543 Caprini VTE Risk Assessment Caprini VTE Risk Assessment: Mod/High Risk (score >= 2) Caprini Risk Assessment Model Point Value = 1 Point Value = 2 Point Value = 3 Point Value = 5 Age 41-60 Minor surgery BMI > 25 kg/m2 Swollen legs Varicose veins or History of unexplained or recurrent spontaneous Oral contraceptives or hormone replacement Sepsis (< 1 month) Serious lung disease, including pneumonia (< 1 month) Abnormal pulmonary function Acute myocardial infarction Congestive heart failure (< 1 month) History of inflammatory bowel disease Medical patient at bed rest Age 61-74 Arthroscopic surgery Major open surgery (> 45 min) Laparoscopic surgery (> 45 min) Malignancy Confined to bed (> 72 hours) Immobilizing plaster cast Central venous access Age >= 75 History of VTE Family history of VTE Factor V Leiden Prothrombin [id number] Lupus anticoagulant Anticardiolipin antibodies Elevated serum homocysteine Heparin-induced thrombocytopenia Other congenital or acquired thrombophilia Stroke (< 1 month) Elective arthroplasty Hip, pelvis, or leg fracture Acute spinal cord injury (< 1 month) Prophylaxis Regimen Total Risk Factor Score Risk Level Prophylaxis Regimen 0-1 Low Early ambulation 2 Moderate Order ONE of the following: *Sequential Compression Device (SCD) *Heparin 5000 units SQ BID 3-4 Higher Order ONE of the following medications: *Heparin 5000 units SQ TID *Enoxaparin/Lovenox 40 mg SQ daily (WT < 150 kg, CrCl > 30 mL/min) *Enoxaparin/Lovenox 30 mg SQ daily (WT < 150 kg, CrCl > 10-29 mL/min) *Enoxaparin/Lovenox 30 mg SQ BID (WT < 150 kg, CrCl > 30 mL/min) AND/OR *Sequential Compression Device (SCD) 5 or more Highest Order ONE of the following medications: *Heparin 5000 units SQ TID (Preferred with Epidurals) *Enoxaparin/Lovenox 40 mg SQ daily (WT < 150 kg, CrCl > 30 mL/min) *Enoxaparin/Lovenox 30 mg SQ daily (WT < 150 kg, CrCl > 10-29 mL/min) *Enoxaparin/Lovenox 30 mg SQ BID (WT < 150 kg, CrCl > 30 mL/min) AND *Sequential Compression Device (SCD) Assessment and Plan Problem List: (1) Amputation stump infection ICD Code: T87.40 - Infection of amputation stump, unspecified extremity Status: Acute Assessment and Plan 61-year-old female with Amputation stump infection of the recent revision AKA Status post vancomycin as 1 in ED, continue with antibiotic pending culture reports Consult infectious disease specialist Consult vascular surgery, Dr. Cooper Borderline diabetes type 2 Continue outpatient medications History of CAD, hyperlipidemia, hypertension Continue outpatient medications DVT prophylaxis: SCD to left lower extremity Physician Certification 2 Midnight Certification Type: Admission for Inpatient Services Order for Inpatient Services The services are ordered in accordance with Medicare regulations or non- Medicare payer requirements, as applicable. In the case of services not specified as inpatient-only, they are appropriately provided as inpatient services in accordance with the 2-midnight benchmark. Estimated LOS (days): 2 days is the estimated time the patient will need to remain in the hospital, assuming treatment plan goals are met and no additional complications. Post-Hospital Plan: Not yet determined Jean Aviles MD Jun 24, 2017 16:56
[2017-06-24] MEDS ORDERED: HYDROmorphone HCL PF 2 MG/ML VIAL IV ONE (17:00)
[2017-06-24] MEDS ORDERED: VANCOMYCIN INJ 1,000 MG in SODIUM CHLOR 0.9% 250 ML INJ 250 ML IV ONE (17:00)
[2017-06-24 17:09] LABS: BLOOD, URINE NEG (NEG); GLUCOSE,URINE NEG (NEG); KETONE, URINE NEG (NEG); NITRITE,URINE NEG (NEG); PH, URINE 5.5 (5.0-8.5)
[2017-06-24] MEDS ORDERED: ACETAMINOPHEN/HYDROcodone 325 MG/5 MG TAB PO PRN (17:15)
[2017-06-24] MEDS ORDERED: RESP: ALBUTEROL 2.5 MG/IPRATROPIUM 0.5 MG NEB (PRN) NEB (17:15)
[2017-06-24] MEDS ORDERED: ONDANSETRON HCL 4 MG/2 ML VIAL IVP PRN (17:15)
[2017-06-24] MEDS ORDERED: DEXTROSE 50% IN WATER 50 ML VIAL(D50) IV PUSH PRN (17:15)
[2017-06-24] MEDS ORDERED: NALOXONE HCL 0.4 MG/ML AMP IV PUSH PRN (17:15)
[2017-06-24] MEDS ORDERED: ENALAPRILAT 2.5 MG/2 ML VIAL IV PUSH PRN (17:15)
[2017-06-24] MEDS ORDERED: ACETAMINOPHEN 325 MG TAB PO PRN ×2 (17:15)
[2017-06-24] MEDS ORDERED: SODIUM CHLORIDE 0.9% FLUSH 10 ML FLUSH IV FLUSH PRN (17:15)
[2017-06-24] MEDS ORDERED: GLUCAGON 1 MG/ML VIAL OTHER PRN (17:15)
[2017-06-24] MEDS ORDERED: ACETAMINOPHEN/HYDROcodone 325 MG/7.5 MG TAB PO PRN (17:15)
[2017-06-24 17:17] LABS: METHOD OF COLLECTION CLEAN CATCH; SQUAMOUS EPITHELIAL CELL URINE > 8 /hpf (0-5); URINE COLOR YELLOW (YELLW/STRAW); WBC, URINE 15-19 /hpf (0-5)
[2017-06-24 17:18] LABS: BACTERIA, URINE MOD /hpf; COMMENT (UR) CULTURE INDICATED; CULTURE IF INDICATED CULTURE INDICATED
--- NOTE | 2017-06-24 17:31 | PD.CAR.PN ---
CVT Progress Note Subjective/Hospital Course: A 61-year-old female known to me from previous encounters and long medical and surgical history including recent revision of an AKA which was revised in the past but patient keeps falling or hitting the stump. Patient had stump revision 2 weeks ago with washout and closure This is healed nicely and her primary care physician noticed some drainage Here in the emergency room I drained some old blood from the lateral aspect of the incision but otherwise the incision is clean dry and not infected There are no collections. Skin is well healed no rubor or swelling At this point patient can be safely discharged home but I would give her a week or so Bactrim DS by mouth Patient has appointment with me on 08 July in the office when I will take the stitches out Thanks J Objective: Vital Signs Date Time Temp Pulse Resp B/P (MAP) Pulse Ox O2 Delivery O2 Flow Rate FiO2 06/24/17 15:59 99 06/24/17 13:38 98.4 82 16 118/61 (80) 97 Labs: Laboratory Tests Test 06/24/17 15:43 06/24/17 17:00 White Blood Count 11.5 TH/MM3 (4.0-11.0) Red Blood Count 3.66 MIL/MM3 (4.00-5.30) Hemoglobin 11.0 GM/DL (11.6-15.3) Hematocrit 32.9 % (35.0-46.0) Mean Corpuscular Volume 89.8 FL (80.0-100.0) Mean Corpuscular Hemoglobin 30.1 PG (27.0-34.0) Mean Corpuscular Hemoglobin Concent 33.5 % (32.0-36.0) Red Cell Distribution Width 13.8 % (11.6-17.2) Platelet Count 346 TH/MM3 (150-450) Mean Platelet Volume 6.8 FL (7.0-11.0) Neutrophils (%) (Auto) 64.2 % (16.0-70.0) Lymphocytes (%) (Auto) 21.2 % (9.0-44.0) Monocytes (%) (Auto) 9.5 % (0.0-8.0) Eosinophils (%) (Auto) 2.0 % (0.0-4.0) Basophils (%) (Auto) 3.1 % (0.0-2.0) Neutrophils # (Auto) 7.4 TH/MM3 (1.8-7.7) Lymphocytes # (Auto) 2.4 TH/MM3 (1.0-4.8) Monocytes # (Auto) 1.1 TH/MM3 (0-0.9) Eosinophils # (Auto) 0.2 TH/MM3 (0-0.4) Basophils # (Auto) 0.4 TH/MM3 (0-0.2) CBC Comment DIFF FINAL Differential Comment Prothrombin Time 10.2 SEC (9.8-11.6) Prothromb Time International Ratio 0.9 RATIO Activated Partial Thromboplast Time 22.2 SEC (24.3-30.1) Blood Urea Nitrogen 22 MG/DL (7-18) Creatinine 0.87 MG/DL (0.50-1.00) Random Glucose 148 MG/DL (74-106) Total Protein 7.7 GM/DL (6.4-8.2) Albumin 3.1 GM/DL (3.4-5.0) Calcium Level 8.4 MG/DL (8.5-10.1) Alkaline Phosphatase 97 U/L (45-117) Aspartate Amino Transf (AST/SGOT) 14 U/L (15-37) Alanine Aminotransferase (ALT/SGPT) 16 U/L (10-53) Total Bilirubin 0.4 MG/DL (0.2-1.0) Sodium Level 137 MEQ/L (136-145) Potassium Level 4.7 MEQ/L (3.5-5.1) Chloride Level 103 MEQ/L (98-107) Carbon Dioxide Level 27.8 MEQ/L (21.0-32.0) Anion Gap 6 MEQ/L (5-15) Estimat Glomerular Filtration Rate 66 ML/MIN (>89) Lactic Acid Level 2.1 mmol/L (0.4-2.0) Urine Collection Type CLEAN CATCH Urine Color YELLOW (YELLW/STRAW) Urine Turbidity CLEAR (CLEAR) Urine pH 5.5 (5.0-8.5) Urine Specific [place] 1.016 (1.002-1.035) Urine Protein NEG mg/dL (NEG-TRACE) Urine Glucose (UA) NEG mg/dL (NEG) Urine Ketones NEG mg/dL (NEG) Urine Occult Blood NEG (NEG) Urine Nitrite NEG (NEG) Urine Bilirubin NEG (NEG) Urine Leukocyte Esterase SMALL (NEG) Urine WBC 15-19 /hpf (0-5) Urine Squamous Epithelial Cells > 8 /hpf (0-5) Urine Bacteria MOD /hpf (NONE) Microscopic Urinalysis Comment CULTURE INDICATED Urine Collection Time 17:00 Result Diagram: 06/24/17 1543 06/24/17 1543 Chantale Wakefield MD Jun 24, 2017 17:31
--- NOTE | 2017-06-24 17:37 | PD ---
HPI Chief Complaint: Skin Problem Time Seen by Provider: 14:49 Travel History International Travel<30 days: No Contact w/Intl Traveler<30days: No Traveled to known affect area: No History of Present Illness HPI Patient is a 61-year-old female presents emergency department for evaluation of purulent discharge from her BKA site. The patient has history of on 06/11 had revision and reclosure of her AKA site by Dr. Martinez. Patient did have a wound culture that time which did show MRSA and the wound but had no overt infection. She had a consultation to Dr. Sky Ayala who recommended no antibiotics. She, gated surgical history with an ascending infection starting in October [address] Spaulding had a debridement of her foot followed by BKA and then ultimately AKA with several revisions. The patient denies any fever chest pain shortness of breath abdominal pain nausea vomiting does endorse chronic pain for now and dictated lower extremity. The patient went to see her primary care physician today and was instructed to follow-up in the emergency department for evaluation. She didn't want to come yesterday so she came here today instead. PFSH Past Medical History Arthritis: Yes Asthma: Yes Autoimmune Disease: Yes (LUPUS) Blood Disorders: No Anxiety: Yes Depression: Yes Heart Rhythm Problems: Yes (A-Fib?) Cancer: Yes (HX CINDY MASTECTOMY - NON MALIGNANT - HX FAMILY BREAST CA) Cardiovascular Problems: Yes High Cholesterol: Yes Chemotherapy: No Chest Pain: No Congestive Heart Failure: Yes COPD: Yes Cerebrovascular Accident: No Coronary Artery Disease: Yes Diabetes: Yes Patient Takes Glucophage: No Endocrine: Yes Gastrointestinal Disorders: Yes (HX FISTULA - COLOSTOMY LEFT UPPER QUAD; ESOPHAGEAL SPASMS) GERD: Yes Genitourinary: No Headaches: No Hepatitis: No Hiatal Hernia: No Hypertension: Yes Immune Disorder: Yes (LUPUS ) Implanted Vascular Access Dvce: Yes Kidney Stones: Yes (past stones) Musculoskeletal: Yes (LUPUS - PAIN IN JOINTS/MUSCLE CRAMPS/SPASMS) Neurologic: Yes (DIABETIC NERVE PAIN HANDS & FEET) Psychiatric: Yes Reproductive: No Respiratory: Yes Immunizations Current: Yes Migraines: No Seizures: No Sleep Apnea: No Thyroid Disease: No Ulcer: No Tetanus Vaccination: Unknown Influenza Vaccination: Yes ?: Not Menopausal: Yes Past Surgical History Abdominal Surgery: Yes (JAMSHID,COLON SX, COLOSTOMY AND REVERSAL; COLOSTOMY 04/15) AICD: No Arteriovenous Shunt: No Body Medical Devices: CARDIAC STENTS, BREAST SALINE IMPLANTS Cardiac Surgery: Yes (CARDIAC STENTS X2, CABG 5 vessels ) Endocrine Surgery: No Genitourinary Surgery: Yes (KIDNEY STONES 1985, ESWL) Gynecologic Surgery: Yes (HYSTERECTOMY) Hysterectomy: Yes Insulin Pump: No Joint Replacement: No Neurologic Surgery: No Oral Surgery: Yes (TONSILLECTOMY) Pacemaker: No Thoracic Surgery: No Other Surgery: Yes (right aka) Social History Alcohol Use: No ([place]) Tobacco Use: No ([place]) Substance Use: No Allergies-Medications (Allergen,Severity, Reaction): Coded Allergies: iodine (Unverified Allergy, Severe, THROAT SWELLS, 06/11/17) pt states does not have a allergy to Iodine 01/11/16 JF penicillin G (Unverified Allergy, Severe, STOPPED BREATHING, 06/11/17) potassium iodide (Unverified Allergy, Severe, THROAT SWELLS, 06/11/17) pt states does not have a allergy to Iodine 01/11/16 JF povidone-iodine (Unverified Allergy, Severe, THROAT SWELLS, 06/11/17) pt states does not have a allergy to Iodine 01/11/16 JF shellfish derived (Unverified Allergy, Severe, THROAT SWELLS, 06/11/17) sodium iodide (Unverified Allergy, Severe, THROAT SWELLS, 06/11/17) pt states does not have a allergy to Iodine 01/11/16 JF sodium iodide (Unverified Allergy, Severe, THROAT SWELLS, 03/19/17) pt states does not have a allergy to Iodine 01/11/16 JF sulfamethoxazole (Unverified Allergy, Severe, Shortness of Breath, 03/19/17 ) trimethoprim (Unverified Allergy, Severe, Shortness of Breath, 03/19/17) Reported Meds & Prescriptions Reported Meds & Active Scripts Active Duloxetine DR (Duloxetine HCl) 60 Mg Capdr 60 Mg PO BID Glucophage (Metformin HCl) 500 Mg Tab 500 Mg PO BIDPC . Lipitor (Atorvastatin Calcium) 40 Mg Tab 40 Mg PO HS . Montelukast (Montelukast Sodium) 10 Mg Tab 10 Mg PO HS . Gabapentin 300 Mg Cap 300 Mg PO Q6HR . Aspirin 81 Mg Chew 81 Mg PO DAILY If okay with Vascular surgery Amiodarone (Amiodarone HCl) 200 Mg Tab 200 Mg PO DAILY . Walker Rolling/GetGo (Device) 1 Mis Mis 1 Ea .ROUTE DIRECTED Walker/Adult/Folding (Device) 1 Mis Mis 1 Ea .ROUTE DIRECTED Reported Ventolin Hfa 18 GM Inh (Albuterol Sulfate) 90 Mcg/Act Aer 1 Puff INH Q4H PRN Carvedilol 3.125 Mg Tab 3.125 Mg PO BID Losartan (Losartan Potassium) 25 Mg Tab 12.5 Mg PO DAILY Oxycodone-Acetaminophen 10-325 mg Tab 1 Tab PO Q4H PRN Tizanidine (Tizanidine HCl) 4 Mg Tab 4 Mg PO TID D3 Ultra Strength (Cholecalciferol) 5,000 Unit Cap 5,000 Units PO DAILY Isosorbide Mononitrate ER (Isosorbide Mononitrate) 30 Mg Shonda 30 Mg PO DAILY Novolin 70-30 Inj (Insulin Human Isoph/Insulin Regular) 1,000 Unit/10 Ml Vial 1 Units SQ Duoneb (Ipratropium-Albuterol Neb) 0.5-2.5 Mg/3 Ml Neb 1 Nebule INH Q6HR NEB Mirtazapine 30 Mg Tab 30 Mg PO HS Review of Systems Except as stated in HPI: all other systems reviewed are Neg Physical Exam Narrative GENERAL: Well-developed well-nourished no obvious distress. Nontoxic appearance. SKIN: Focused skin assessment warm/dry. Right BKA wound does have several stitches in place with no surrounding erythema. HEAD: Atraumatic. Normocephalic. EYES: Pupils equal and round. No scleral icterus. No injection or drainage. ENT: No nasal bleeding or discharge. Mucous membranes pink and moist. NECK: Trachea midline. No JVD. CARDIOVASCULAR: Regular rate and rhythm. No murmur appreciated. RESPIRATORY: No accessory muscle use. Clear to auscultation. Breath sounds equal bilaterally. GASTROINTESTINAL: Abdomen soft, non-tender, nondistended. Hepatic and splenic margins not palpable. MUSCULOSKELETAL: No obvious deformities. No clubbing. No cyanosis. No edema. Right BKA site is clean, there is some purulent discharge which could be expressed from the wound without any surrounding erythema. Total amount express was about a half a teaspoon. Left lower extremity is in a boot secondary to a fracture. NEUROLOGICAL: Awake and alert. No obvious cranial nerve deficits. Motor grossly within normal limits. Normal speech. PSYCHIATRIC: Appropriate mood and affect; insight and judgment normal. Data Data Last Documented VS Vital Signs Date Time Temp Pulse Resp B/P (MAP) Pulse Ox O2 Delivery O2 Flow Rate FiO2 06/24/17 15:59 99 06/24/17 13:38 98.4 82 16 118/61 (80) Orders Orders Complete Blood Count With Diff (06/24/17 15:11) Comprehensive Metabolic Panel (06/24/17 15:11) Prothrombin Time / Inr (Pt) (06/24/17 15:11) Act Partial Throm Time (Ptt) (06/24/17 15:11) Lactic Acid Sepsis Protocol (06/24/17 15:11) Urinalysis - C+S If Indicated (06/24/17 15:11) Blood Culture (06/24/17 15:11) Ecg Monitoring (06/24/17 15:11) Iv Access Insert/Monitor (06/24/17 15:11) Oximetry (06/24/17 15:11) Oxygen Administration (06/24/17 15:11) Morphine Inj (Morphine Inj) (06/24/17 16:00) Hydromorphone Pf Inj (Dilaudid Pf Inj) (06/24/17 17:00) Consult Vascular Surgery (06/24/17 ) Vancomycin Inj (Vancomycin Inj) (06/24/17 17:00) Admit Order (Ed Use Only) (06/24/17 ) Labs Laboratory Tests Test 06/24/17 15:43 White Blood Count 11.5 TH/MM3 Red Blood Count 3.66 MIL/MM3 Hemoglobin 11.0 GM/DL Hematocrit 32.9 % Mean Corpuscular Volume 89.8 FL Mean Corpuscular Hemoglobin 30.1 PG Mean Corpuscular Hemoglobin Concent 33.5 % Red Cell Distribution Width 13.8 % Platelet Count 346 TH/MM3 Mean Platelet Volume 6.8 FL Neutrophils (%) (Auto) 64.2 % Lymphocytes (%) (Auto) 21.2 % Monocytes (%) (Auto) 9.5 % Eosinophils (%) (Auto) 2.0 % Basophils (%) (Auto) 3.1 % Neutrophils # (Auto) 7.4 TH/MM3 Lymphocytes # (Auto) 2.4 TH/MM3 Monocytes # (Auto) 1.1 TH/MM3 Eosinophils # (Auto) 0.2 TH/MM3 Basophils # (Auto) 0.4 TH/MM3 CBC Comment DIFF FINAL Differential Comment Prothrombin Time 10.2 SEC Prothromb Time International Ratio 0.9 RATIO Activated Partial Thromboplast Time 22.2 SEC Blood Urea Nitrogen 22 MG/DL Creatinine 0.87 MG/DL Random Glucose 148 MG/DL Total Protein 7.7 GM/DL Albumin 3.1 GM/DL Calcium Level 8.4 MG/DL Alkaline Phosphatase 97 U/L Aspartate Amino Transf (AST/SGOT) 14 U/L Alanine Aminotransferase (ALT/SGPT) 16 U/L Total Bilirubin 0.4 MG/DL Sodium Level 137 MEQ/L Potassium Level 4.7 MEQ/L Chloride Level 103 MEQ/L Carbon Dioxide Level 27.8 MEQ/L Anion Gap 6 MEQ/L Estimat Glomerular Filtration Rate 66 ML/MIN Lactic Acid Level 2.1 mmol/L [facility] Medical Decision Making Medical Screen Exam Complete: Yes Emergency Medical Condition: Yes Differential Diagnosis Postsurgical infection, status post BKA, chronic femur pain, postoperative pain , bacteremia seems unlikely, sepsis seems unlikely. Narrative Course Patient roomed emergency department, labs are reassuring, the patient was discussed with Dr. Martinez who initially recommended admission to the hospital and opening the wound by taking the stitches out. The patient was ordered for dose of vancomycin and this plan was conveyed to the patient. Dr. [place] then showed up in the emergency department and evaluated the patient and was less impressed with the findings and recommended outpatient follow-up, he recommended the patient did receive a dose of vancomycin followed by oral Bactrim as an outpatient. Diagnosis Primary Impression: Amputation of lower extremity above knee with complication Referrals: Chantale Wakefield MD Additional Instructions: Fill and take the Bactrim (trimethoprim/sulfamethoxazole) that your primary care physician wrote for you. Disposition: 01 DISCHARGE HOME Condition: Stable Gage Coats MD Jun 24, 2017 17:37
[2017-06-24] MEDS ORDERED: HYDROmorphone HCL PF 2 MG/ML VIAL IV PUSH ONE (17:45)
[2017-06-24] MEDS ORDERED: BACT800T5 PO (17:46)
[2017-06-24 18:00] LABS: LACTIC ACID GHOST NOT REPORTABLE
[2017-06-24] MEDS ORDERED: oxyCODONE/ACETAMINOPHEN 5 MG/325 MG TAB PO ONE (19:00)
[2017-06-24 19:28] VITALS: BP 141/66; PULSE 77; RESP 18; O2SAT 97
[2017-06-24] MEDS ORDERED: SODIUM CHLORIDE 0.9% FLUSH 10 ML FLUSH IV FLUSH SCH (21:00)
[2017-06-24] MEDS ORDERED: INSULIN ASPART SUPPLEMENTAL SCALE SQ SCH (21:00)
[2017-06-24] MEDS ORDERED: DOCUSATE SODIUM 50 MG/SENNA 8.6 MG TAB PO SCH (21:00)
== END 2017-06-24 19:30 | disposition home or self-care (01) ==
LOC: PHED 13:21 → PHEDA 16:56 → UNDOADMIN 16:56 → PHED 19:30
DX: T87.43 Infection of amputation stump, right lower extremity (principal); B95.2 Enterococcus as the cause of diseases classified elsewhere; E11.9 Type 2 diabetes mellitus without complications; I11.0 Hypertensive heart disease with heart failure; I50.9 Heart failure, unspecified; Z79.4 Long term (current) use of insulin; Z89.611 Acquired absence of right leg above knee
CPT/HCPCS: 80053; 81001; 83605; 85025; 85610; 85730; 87040; 87077; 87086; 87186; 96374; 96375; 99285; J1170; J2270; J3370; J7050

== ENCOUNTER → 2017-11-03 | Day surgery (SDC) | payer OTHER ==
[~2017-11-03] VITALS: Ht 152.4 cm; Wt 68.0 kg
[~2017-11-03] MED LIST changes: +*morphine SULFATE 4 MG/ML PERIprocedure ONLY ONE; +BACITRACIN TOP OINT 15 GM TUBE ONE; +CARV3.12 PO; -CARV6.25 PO; +CHLORHEXIDINE GLUCONATE 2 % 1 PACK (2 CLOTHS) TOPICAL PRN; +D3 U5000 PO; -DILA2TAB4 PO; +DO NOT ADM ANY ANTICOAGULANT DRUGS PRN; +IPRASOL INH; +ISOS30TA3 PO; +KETAMINE HCL 500 MG/10 ML VIAL ONE; +LACTATED RINGER'S 1000 ML IV PRN; +LIDOCAINE 1%/EPINEPHrine 1:100,000 SOLN 30 ML VIAL ONE; +LIDOCAINE HCL 1% PF 5 ML SYRINGE OTHER ONE; +LOSA25TA PO; +METOPROLOL TARTRATE 25 MG TAB PO PRN; +MIDAZOLAM HCL 2 MG/2 ML VIAL ONE; +MIRT30TA PO; -MUPI2%T TOPICAL; +NOVO7030P2 SQ; +ONDANSETRON HCL 4 MG/2 ML VIAL IV PUSH PRN; +OXYC1TAB36 PO; +POVIDONE IODINE 5% (ANTISEPSIS KIT) 4 APPLICATIONS EACH NARE PRN; +PROPOFOL 200 MG/20 ML AMP IV ONE; +SODIUM CHLORID 0.9% 500 ML IV PRN; +SODIUM CHLORIDE 0.9% 10 ML VIAL IV ONE; +TIZA4TAB PO; +VENTAER INH; +ceFAZolin INJ 1,000 MG VIAL IV ONE; +ceFAZolin INJ 1,000 MG VIAL ONE; +metroNIDAZOLE 500 MG INJ 100 ML IV ONE; +oxyCODONE/ACETAMINOPHEN 5 MG/325 MG TAB PO PRN
--- NOTE | 2017-11-03 13:18 | RADRPT ---
EXAM DATE/TIME: 11/03/2017 12:28 [facility] COMPARISON: CHEST SINGLE AP, February 06, 2017, 17:41. INDICATIONS : Evaluate for pneumonia, pneumothorax or communicable disease. Preop chest for revision of colostomy t ora MEDICAL HISTORY : Cardiovascular disease. Chronic obstructive pulmonary disease. Congestive heart failure. asthma, lupus SURGICAL HISTORY : CABG. Colostomy. Cholecystectomy. bilat mastectomy (non-malignant) ENCOUNTER: Initial ACUITY: 1 day PAIN SCORE: 0/10 LOCATION: Bilateral chest FINDINGS: There is a changed appearance to the left mid and lower lung when compared to prior examination but a hazy area of increased opacity, but no consolidation. It is uncertain whether the opacity projected over the lower left chest is due to to pulmonary opacity or thickening of the chest wall tissues. T he heart is normal in size. Evidence of prior median sternotomy. The right lung is clear. Both hem idiaphragms are well delineated focal. CONCLUSION: Ill-defined opacity projecting over the left mid and lower chest could be due to chest wall thickenin g or non-consolidative pulmonary infiltrates. Antwan Mary MD on November 03, 2017 at 13:13 Board Certified Radiologist. This report was verified electronically.
--- NOTE | 2017-11-03 13:20 | PD.HP.UP ---
H&P Update Note The Pre-Admit History and Physical Examination regarding the above named patient was reviewed (including, but not limited to, vital signs, heart, lungs, co-morbid conditions), and upon re-examination it is noted that: the patient's condition has not significantly changed since the last examination. Kole Moncada MD Nov 03, 2017 13:20
[2017-11-03 15:26] VITALS: BP 136/70; PULSE 79; RESP 18; TEMP 98.3; O2SAT 96
--- NOTE | 2017-11-04 16:38 | EKG ---
Date Performed: 11/03/2017 Time Performed: 12:16:38 PTAGE: 61 years EKG: Sinus rhythm INFERIOR MYOCARDIAL INFARCTION , PROBABLY OLD Since previous tracing, no significant change noted AB NORMAL ECG PREVIOUS TRACING : 01/20/2017 14.45 DOCTOR: Yasir Merino Interpretating Date/Time 11/04/2017 16:36:53
--- NOTE | 2017-11-05 10:55 | MR ---
cc: Kole Moncada MD DATE: 11/03/2017 PREOPERATIVE DIAGNOSIS: Parastomal hernia with bleeding colostomy granulomas. PROCEDURE PERFORMED: Exam under anesthesia with excision of colostomy granulomas. POSTOPERATIVE DIAGNOSIS: Parastomal hernia with bleeding colostomy granulomas. SURGEON: Kole Moncada MD DESCRIPTION OF PROCEDURE: The patient was placed in the supine position. After adequate anesthesia/sedation, her abdomen was prepped with Betadine solution and draped in the usual sterile fashion. Examination revealed the colostomy in the left upper quadrant to have a parastomal hernia, but it was not excessively large and the stomal only prolapsed a small amount. Around the edge of the mucocutaneous junction were several large granulomatous type mucosal lesions which were quite friable and bled easily. These were excised with electrocautery, using the cautery for hemostasis at the base. After multiple excisions, the mucocutaneous junction appeared to be hemostatic and was not strictured. The remainder of the mucosa did appear to be slightly irritated, but was healthy and patent through the fascia level. Sterile colostomy appliance fitted over the new stoma. The patient tolerated the procedure quite well and was brought to the recovery room in stable condition. Sponge and needle counts were correct at the end of the procedure. Kole Moncada MD [facility]/ , 11:32 PM , 11:50 PM
== END | disposition home or self-care (01) ==
LOC: HSDC 11:40
PROVIDERS: ATTEND Colon & Rectal Surgery
DX: K94.09 Other complications of colostomy (principal); K43.5 Parastomal hernia without obstruction or gangrene; L92.8 Other granulomatous disorders of the skin and subcutaneous tissue; I25.10 Atherosclerotic heart disease of native coronary artery without angina pectoris; J44.9 Chronic obstructive pulmonary disease, unspecified; M32.9 Systemic lupus erythematosus, unspecified; Z95.1 Presence of aortocoronary bypass graft
CPT/HCPCS: 00902; 46922; 71045; 88305; 93005; J0690; J2250; J2270; J3010; J7120